=== PATIENT | male | born 1945 | race Caucasian/White ===

== ENCOUNTER 2017-08-22 17:27 | Observation (INO) | payer MEDICARE, SELFPAY ==
[2017-08-22] VITALS (11 sets, daily range): BP systolic 89–126; BP diastolic 49–74; PULSE 58–61; RESP 16–19; TEMP 36.6–36.8; O2SAT 94–100; BMI 30.6; BMI 29.7
--- NOTE | 2017-08-22 17:30 | EKG12_ITS ---
Test Reason : CHEST PAIN Blood Pressure : / mmHG Vent. Rate : 060 BPM Atrial Rate : 060 BPM P-R Int : 148 ms QRS Dur : 104 ms QT Int : 462 ms P-R-T Axes : 075 -48 025 degrees QTc Int : 462 ms Sinus rhythm with Premature atrial complexes Left axis deviation Lateral infarct , age undetermined Inferior infarct , age undetermined Abnormal ECG Confirmed by SHARLENE TRAVIS, JOSEPH ([id number]), restaurant expeditor DANIELLE POMPA ([id number]) on 08/25/2017 1:44:12 PM Referred By: ZUNILDA Confirmed By:JOSEPH SU MD
--- NOTE | 2017-08-22 17:31 | RAD_ITS ---
STUDY: X-RAY CHEST REASON FOR EXAM: Male, 72 years old. Chest pain. TECHNIQUE: Single frontal view of the chest. COMPARISON: May 15, 2016 FINDINGS: There is stable mild hyperexpansion. There is no demonstrated pleural abnormality. There is cardiomegaly with a dual lead cardiac pacer unchanged. Normal mediastinum and luca. Normal visualized pulmonary arteries. Normal visualized aortic arch and descending thoracic aorta. Normal visualized thoracic spine. Normal visualized ribs, clavicles, and shoulders. There is no demonstrated abnormality of the visualized soft tissue structures of the upper abdomen. RAD/Chest 1 View (Portable) IMPRESSION: Stable cardiomegaly with hyperexpansion. No new or acute pathology. Electronically Signed: Mark Tang MD at 18:49 EDT , Service support ,
--- NOTE | 2017-08-22 17:43 | ED.DCSUM_ITS ---
- ER Visit Summary Date of Service: 08/22/17 Chief Complaint: Chest pain History of Present Illness: The patient is a 72 M who developed chest pain last night. He states it was intermittent until today when it was constant. Sharp in the lower part of the sternal area. Nothing makes it better or worse. He has had nausea and tried to vomit but could not. No dyspnea or diaphoresis. He does have a history of multiple heart attacks in the past. Dr. Harris is his junior web designer. He also has a stone in his bile duct and is scheduled for an ERCP. He does not have a gallbladder. He does take Coumadin because he has a pacemaker in place. Physical Examination: Vital signs reviewed. HEENT exam unremarkable. Heart is regular rate and rhythm without murmurs. Lungs are clear to auscultation. He does have lower chest tenderness to palpation abdomen is soft with epigastric tenderness to palpation. extremities reveal no edema. Skin exam normal. Neurologic exam normal. Test Results: EKG is normal sinus rhythm with multiple PACs. Nonspecific ST and T-wave changes noted. Chest x-ray reveals chronic changes. Creatinine 1.41 and troponin normal. His INR is 2.2. Emergency Department Course and Treatment: Patient was given aspirin. He did have an episode of hypotension. He was given a liter of saline. Repeat blood pressure 100/49. He requested Toradol for pain control. He states his pain is much improved but not gone. I feel he should be admitted to the hospital for cycling of his enzymes and cardiac rule out. Patient will be discussed with the hospitalist for admission Treatment Plan: [] Disposition: Admit Impression: Chest pain This note was generated with [employer] dictation software. It may contain incorrect words, spelling, and punctuation that were not noted in review of the chart prior to signing ED Disposition - Plan for ED Patient: Chief Complaint: Chest Pain Referrals: Lilly Starr MD [Primary Care Provider] -
[2017-08-22 17:49] LABS: Absolute Lymphocyte Count 1.63 X10^3/ul (0.83-4.51); Absolute Neutrophil Count 4.8 X10^3/uL (2.0-7.7); Basophil# 0.03 X10^3/uL; Basophil% 0.4 % (0-1); Eosinophil# 0.17 X10^3/uL; Eosinophils% 2.3 % (0-5); Hematocrit 42.6 % (40-54); Hemoglobin 14.3 g/dl (13.0-16.5); Lymphocyte # 1.63 X10^3/ul (4.0); Lymphocyte % 22.2 % (19-41); Mean Corp Hgb Conc 33.6 g/gl (32-36); Mean Corpuscular Volume 89.3 fL (80-94); Mean Platelet Vol. 9.3 fl (6.2-12.0); Monocyte# 0.69 X10^3/uL; Monocyte% 9.4 % (0-10); Neutrophil % 65.6 % (47-70); POSITIVE COUNT NO; POSITIVE DIFFERENTIAL NO; POSITIVE MORPHOLOGY NO; Platelet Count 151 K/mm3 (150-450); RBC Distribution Width CV 14.9 % (11.6-14.6); RBC Distribution Width SD 48.6 fl (35.1-43.9); Red Blood Count 4.77 M/mm3 (4.6-6.2); White Blood Count 7.3 K/mm3 (4.4-11.0)
[2017-08-22 17:57] LABS: International Normalized Ratio 2.2; Prothrombin Time (Protime)PT. 24.7 SECONDS (11.7-14.9)
[2017-08-22 18:06] LABS: AST(SGOT) 26 U/L (15-37); Alanine Aminotransfer ALT/SGPT 31 U/L (16-61); Albumin, Serum 3.5 g/dL (3.2-5.0); Alkaline Phosphatase 87 U/L (45-117); Anion Gap 10 (5-15); BUN 18 mg/dL (7-18); BUN/Creat Ratio 12.8 RATIO (10-20); Bilirubin, Direct 0.19 mg/dL (0.00-0.30); Chloride 103 mmol/L (98-107); Creatinine, Serum 1.41 mg/dL (0.70-1.30); EST Glomerular Filtration Rate 53 mL/min (>60); Est Glom Filt Rate - Afr Amer 64 mL/min (>60); Estimated Creatinine Clearance 48.75 ml/min; Globulin 4.2 g/dL (2.2-4.2); Glucose 135 mg/dL (74-106); Lipase 240 U/L (73-393); Potassium 3.8 mmol/L (3.5-5.1); Protein, Total 7.7 g/dL (6.4-8.2); Sodium Level 139 mmol/L (136-145)
[2017-08-22] MEDS: Ketorolac 30 MG/ML Syringe IV (18:15)
--- NOTE | 2017-08-22 20:11 | HP.PCM_ITS ---
Problem List (1) Chest pain Status: Acute (2) Sustained VT (ventricular tachycardia) Status: Acute (3) Atrial fibrillation Status: Chronic (4) Coronary artery disease Status: Chronic (5) Dyslipidemia Status: Chronic (6) Hypertension Status: Chronic (7) PAF (paroxysmal atrial fibrillation) Status: Chronic History of Present Illness Date of Admission: 08/22/17 Chief Complaint: Chest pain The patient is a 72 year old male w/ h/o PAF, CAD, HTN, and lipidemia admitted for chest pain. He had intermittent epigastric pain in the past. However today, after eating, he had constant severe epigastric pain. Pain does not radiate. Nothing made it better or worse. He was nauseated and tried to vomit but could not. Pain was not associated with any other symptoms. Pain was nonexertional. He was schedule to have ERCP. Past Medical History Past Medical History (Chronic Problems): Chronic Problems PAF (paroxysmal atrial fibrillation) (Chronic) Dyslipidemia (Chronic) Coronary artery disease (Chronic) Atrial fibrillation (Chronic) Smoking addiction (Chronic) Hypertension (Chronic) Allergies esomeprazole magnesium [From Nexium] Adverse Reaction (Verified 01/06/16 18:21) Diarrhea Home Medications: Ambulatory Orders Medication Instructions Recorded Nitroglycerin [Nitrostat] 0.4 mg SUBLINGUAL Q5M PRN 06/11/13 Pantoprazole Sodium [Protonix] 40 mg PO BID 06/11/13 Atorvastatin Calcium [Lipitor] 40 mg PO QHS 05/15/16 Magnesium Oxide [Mag-Ox 400] 400 mg PO SUTH 05/15/16 Sacubitril/Valsartan 49-51 mg 1 tab PO BID 05/15/16 [Entresto 49 mg-51 mg Tablet] Acetaminophen [Tylenol Extra 1,000 mg PO DAILY PRN 08/22/17 Strength] Aspirin [Aspirin, Baby] 81 mg PO QHS 08/22/17 Docusate Sodium [Colace] 200 mg PO QHS 08/22/17 Fluticasone 0.05% [Flonase Nasal 1 spray NASAL DAILY 08/22/17 [place]] Furosemide [Lasix] 40 mg PO BID 08/22/17 Metoprolol Succinate [Toprol Xl] 25 mg PO DAILY 08/22/17 Potassium Chloride [K-Dur] 10 meq PO BID 08/22/17 Warfarin Sodium [Warfarin Sodium] 5 mg PO DAILY 08/22/17 Surgical History: - - AICD pacemaker Psychiatric History: No pertinent psych hx Lives: Spouse/ Significant Other Smoking Status: Former smoker Tobacco Use: Non-smoker Alcohol: None - *Family History Maternal History Items: No pertinent history Review of Systems Constitutional: Denies: Chills, Fever, Weight Change HEENT: Denies: Head Aches, Sinus Congestion, Sinus Drainage Cardiovascular: Reports: Chest Pain. Denies: Palpitations Respiratory: Denies: Cough, Shortness of breath at rest, Sputum production Gastrointestinal: Reports: Nausea. Denies: Abdominal Pain, Vomiting Genitourinary: Denies: Dysuria Musculoskeletal: Denies: Joint Pain, Joint Tenderness Skin: Denies: Rash, Wounds Neurological: Denies: Numbness, Tingling, Focal weakness Psychiatric: Denies: Anxiety, Depression, Homicidal Ideations, Suicidal Ideations Hematologic/ Lymphatic: Denies: Easy Bruising, Easy Bleeding VTE Information - Inpt Only VTE Present on Admission: No VTE Mechan Device Prophylaxis: SCD's VTE Pharm Prophylaxis ordered?: Yes Patient Problems: Active and Suspected Problems Chest pain (Acute) - Physical Exam General: Alert, Oriented x3, Cooperative HEENT: Atraumatic, PERRLA, EOMI, Normocephalic Neck: Supple, No JVD, Negative Carotid Bruits Lungs: Clear to auscultation, Normal air movement Cardiovascular: Regular rate, No murmurs Abdomen: Bowel Sounds Present, Soft, Non Tender Extremities: No edema, Capillary Refill Less than 3 Seconds Skin: No rashes, No breakdown Musculoskeletal: No Tenderness to Palpation of Joints or Extremities Neurological: Cranial nerves II-XII grossly intact Psych/Mental Status: Normal Affect, Appropriate Vital Signs Temp Pulse Resp BP Pulse Ox 98.2 F 60 16 100/49 L 96 08/22/17 17:27 08/22/17 19:09 08/22/17 19:09 08/22/17 19:09 08/22/17 19:09 Oxygen Flow Rate (L/min) 3 Oxygen Delivery Method Room Air Weight: 94 kg Body Mass Index (BMI) 30.6 Laboratory Tests Past 24 Hrs 08/22/17 08/22/17 08/22/17 17:40 17:40 17:40 WBC 7.3 RBC 4.77 Hgb 14.3 Hct 42.6 MCV 89.3 MCH 30.0 MCHC 33.6 RDW 14.9 H RDW Differential 48.6 H Plt Count 151 MPV 9.3 Immature Gran % (Auto) 0.100 Neut % (Auto) 65.6 Lymph % (Auto) 22.2 [place] % (Auto) 9.4 Eos % (Auto) 2.3 Baso % (Auto) 0.4 Absolute Neuts (auto) 4.8 Absolute Lymphs (auto) 1.63 Total Counted Not Reportable PT 24.7 H INR 2.2 Sodium 139 Potassium 3.8 Chloride 103 Carbon Dioxide 26.0 Anion Gap 10 BUN 18 Creatinine 1.41 H Estim Creat Clear Calc 48.75 Est GFR (MDRD) Af Amer 64 Est GFR (MDRD) Non-Af 53 L BUN/Creatinine Ratio 12.8 Glucose 135 H Calcium 9.0 Total Bilirubin 0.80 Direct Bilirubin 0.19 AST 26 ALT 31 Alkaline Phosphatase 87 Troponin I < 0.015 Total Protein 7.7 Albumin 3.5 Globulin 4.2 Lipase 240 Assessment/Plan All Active Problems Chest pain (Acute) AICD discharge (Acute) Sustained VT (ventricular tachycardia) (Acute) Acute renal failure (Resolved) Dehydration (Resolved) Nausea & vomiting (Resolved) 72 year old male w/ h/o PAF, CAD, HTN, and lipidemia admitted for chest pain. 1) Chest pain: Heart score 5 Chest xray is unremarkable. EKG is nondiagnostic. Trop negative. C/w ASA, metoprolol and statin. Serial trops and FLP. Will get ECHO and stress test. 2_ Chronic issues: PAF, CAD, HTN, and lipidemia Resume coumadin. Follow INR. 3) Prophylaxis: SCD / coumadin / PPI
--- NOTE | 2017-08-22 20:52 | NURSING ---
Called ED non cdl driver, Erica at this time to confirm Pt is okay to come to PCU.
--- NOTE | 2017-08-22 21:25 | EKG12_ITS ---
Test Reason : CP ADMISSION Blood Pressure : / mmHG Vent. Rate : 060 BPM Atrial Rate : 060 BPM P-R Int : 196 ms QRS Dur : 108 ms QT Int : 456 ms P-R-T Axes : 076 -44 -22 degrees QTc Int : 456 ms Atrial-paced rhythm Left axis deviation Lateral infarct , age undetermined Inferior infarct , age undetermined Abnormal ECG Confirmed by SHARLENE TRAVIS, JOSEPH ([id number]), editor index DANIELLE POMPA ([id number]) on 08/25/2017 3:04:31 PM Referred By: KENNY Confirmed By:JOSEPH SU MD
[2017-08-22] MEDS: Docusate Sodium 100 MG Capsule 200 MG PO (23:13)
[2017-08-22] MEDS: SACUBITRIL/VALSARTAN 49-51 MG TABLET 1 EACH PO (23:13)
[2017-08-22] MEDS: Pantoprazole Sodium 40 MG Tablet PO (23:13)
[2017-08-22] MEDS: Atorvastatin Calcium 40 MG Tablet PO (23:13)
[2017-08-22] MEDS: Furosemide 40 MG Tablet PO (23:14)
[2017-08-23] VITALS (14 sets, daily range): BP systolic 80–102; BP diastolic 51–64; PULSE 60–64; RESP 16–18; TEMP 36.6–36.8; O2SAT 94–97
[2017-08-23 05:54] LABS: Hemoglobin 12.7 g/dl (13.0-16.5); Mean Corp Hgb Conc 32.6 g/gl (32-36); Mean Corpuscular Hgb 29.6 pg (27.0-32.0); Mean Corpuscular Volume 90.9 fL (80-94); Mean Platelet Vol. 9.9 fl (6.2-12.0); Platelet Count 142 K/mm3 (150-450); RBC Distribution Width CV 15.3 % (11.6-14.6); RBC Distribution Width SD 50.6 fl (35.1-43.9); Red Blood Count 4.29 M/mm3 (4.6-6.2); White Blood Count 6.7 K/mm3 (4.4-11.0)
--- NOTE | 2017-08-23 05:55 | ECHOCS_ITS ---
Reason For Study: Chest Pain Procedure This was a 2D Doppler, Color Flow transthoracic echocardiogram. Per Patient: Last echo done with the [facility] showed an EF of 30%. Exam performed portable in patient room. Left Ventricle Mildly dilated left ventricle. The estimated ejection fraction is 25 %. Severe segmental systolic dysfunction (see wall motion). Transmitral and pulmonary venous doppler flow suggestive of impaired relaxation of left ventricle. Mid-Posterior: Akinetic. Infero-Basal: Hypokinetic. Posterior-Basal: Akinetic. [place] : Akinetic. Mid-anteroseptal : Hypokinetic. Anterio-Basal: Normal. Lateral-Basal: Hypokinetic. Basal inferoseptal: Hypokinetic. Basal anteroseptal: Hypokinetic. Mid-Anterior : Normal. Mid-Inferior: Hypokinetic. Mid-inferoseptal : Mildly hypokinetic. Right Ventricle Normal RV size. Normal systolic function. Atria Normal left atrium. Normal right atrium. Mitral Valve Normal mitral valve. Tricuspid Valve Normal tricuspid valve. Aortic Valve The aortic valve is not well visualized. Pulmonic Valve Normal pulmonic valve. Great Vessels Normal aortic root. The pulmonary artery is normal size. Normal inferior vena cava. Pericardium/Pleural No pericardial effusion. Medication Diluted definity 3ml given slow IV push to enhance endocardial definition. MMode/2D Measurements & Calculations LVIDd: 5.8 cm IVSd: 1.2 cm Ao root diam: 3.9 cm LVIDs: 5.0 cm LVPWd: 1.0 cm LA dimension: 4.4 cm FS: 13.7 % LAV(MOD-sp4): 35.6 ml LA A4 area: 16.2 cm2 RA A4 area: 9.0 cm2 Time Measurements MV dec time: 0.35 sec Doppler Measurements & Calculations MV E max angela: 35.9 cm/sec MV V2 max: 92.5 cm/sec MV P1/2t max angela: 55.9 cm/sec MV A max angela: 80.4 cm/sec MV max P.4 mmHg MV P1/2t: 98.7 msec MV E/A: 0.45 MV V2 mean: 45.4 cm/sec MV dec slope: 165.8 cm/sec2 MV mean P.98 mmHg MVA(P1/2t): 2.2 cm2 MV V2 VTI: 28.1 cm Ao V2 max: 141.6 cm/sec LV V1 max: 118.5 cm/sec PA V2 max: 80.9 cm/sec Ao max P.0 mmHg LV V1 max P.6 mmHg Ao V2 mean: 90.6 cm/sec LV V1 mean P.7 mmHg Ao mean P.8 mmHg LV V1 mean: 75.5 cm/sec Ao V2 VTI: 27.7 cm LV V1 VTI: 26.2 cm Interpretation Summary Mildly dilated left ventricle. The estimated ejection fraction is 25 %. Severe segmental systolic dysfunction (see wall motion). Transmitral and pulmonary venous doppler flow suggestive of impaired relaxation of left ventricle Contrast injection was performed. Ordering Physician: Nirav Winslow Referring Physician: Lilly Starr Performed By: Surya Porras RCS
[2017-08-23 05:57] LABS: Scan Indicated on CBC? Y/N NO
[2017-08-23 06:06] LABS: International Normalized Ratio 2.1; Prothrombin Time (Protime)PT. 23.6 SECONDS (11.7-14.9)
[2017-08-23 06:33] LABS: ALB/GLOB Ratio 0.8 RATIO (0.9-2.4); AST(SGOT) 20 U/L (15-37); Alanine Aminotransfer ALT/SGPT 25 U/L (16-61); Albumin, Serum 2.9 g/dL (3.2-5.0); Alkaline Phosphatase 72 U/L (45-117); Anion Gap 8 (5-15); BUN 21 mg/dL (7-18); BUN/Creat Ratio 15.1 RATIO (10-20); Calcium,Total 8.4 mg/dL (8.5-10.1); Chloride 106 mmol/L (98-107); Cholesterol 117 mg/dL (200); Creatinine, Serum 1.39 mg/dL (0.70-1.30); EST Glomerular Filtration Rate 54 mL/min (>60); Est Glom Filt Rate - Afr Amer 65 mL/min (>60); Estimated Creatinine Clearance 47.84 ml/min; Globulin 3.8 g/dL (2.2-4.2); Glucose 102 mg/dL (74-106); High Density Lipoprotein 37 mg/dL; Potassium 4.2 mmol/L (3.5-5.1); Protein, Total 6.7 g/dL (6.4-8.2); Sodium Level 141 mmol/L (136-145); Thyroid Stim Hormone (TSH) 1.57 uIU/mL (0.358-3.74); Triglycerides 228 mg/dL; Very Low Density Lipoprotein 46 mg/dL (5-40)
[2017-08-23 08:03] LABS: BNP,B-Type NATRIURETIC PEPTIDE 73.2 pg/mL (0-100)
[2017-08-23] MEDS: Magnesium Oxide 400 MG Tablet PO (09:27)
[2017-08-23] MEDS: Metoprolol(XL)Succ 25 MG Tablet PO (09:27)
[2017-08-23] MEDS: Pantoprazole Sodium 40 MG Tablet PO ×2 (09:28→22:14)
[2017-08-23] MEDS: Furosemide 40 MG Tablet PO ×2 (09:28→17:09)
[2017-08-23] MEDS: SACUBITRIL/VALSARTAN 49-51 MG TABLET 1 EACH PO ×2 (09:28→22:14)
--- NOTE | 2017-08-23 09:57 | PN_ITS ---
Patient Problems: Active and Suspected Problems Chest pain (Acute) Subjective: Patient was seen and examined. Complains of severe substernal chest pain, that feels like his previous heart attack, gallstones, pancreatitis all in 1. Denies belching or water brash in his mouth. Says chest pain feels pressure- like, associated with nausea and diaphoresis but no dizziness or palpitations. Vitals/I&O's: Vital Signs Temp Pulse Resp BP Pulse Ox 98.3 F 60 16 91/51 L 97 08/23/17 09:08 08/23/17 09:27 08/23/17 09:08 08/23/17 09:08 08/23/17 09:08 Oxygen Flow Rate (L/min) 3 Oxygen Delivery Method Nasal Cannula Weight: 90.7 kg Body Mass Index (BMI) 29.7 Intake and Output for Last 24 Hours 08/21/17 08/22/17 08/23/17 23:59 23:59 23:59 Intake Total 240 / 240 240 / 240 Output Total 100 / 100 Balance 140 / 140 240 / 240 General: Alert, Oriented x3, Cooperative, No apparent distress HEENT: Atraumatic, PERRLA, EOMI, Normocephalic Oral: Moist Mucosa Neck: Supple, No JVD, Negative Carotid Bruits Lungs: Clear to auscultation, Normal air movement Cardiovascular: Regular rate, Regular Rhythm, Normal S1, Normal S2, No murmurs Abdomen: Bowel Sounds Present, Soft, Non Tender, Non-Distended, No Hepato- splenomegaly Extremities: No edema Skin: No rashes, No breakdown Musculoskeletal: No Tenderness to Palpation of Joints or Extremities Lymphatic: No Cervical, Supraclavicular, or Inguinal Adenopathy Neurological: Cranial nerves II-XII grossly intact, Neuro grossly intact Psych/Mental Status: Normal Affect, Appropriate Laboratory Results 08/22/17 21:38: Troponin I < 0.015 08/23/17 00:33: Troponin I < 0.015 08/23/17 05:05: WBC 6.7, RBC 4.29 L, Hgb 12.7 L, Hct 39.0 L, MCV 90.9, MCH 29.6 , MCHC 32.6, RDW 15.3 H, RDW Differential 50.6 H, Plt Count 142 L, MPV 9.9 08/23/17 05:05: Sodium 141, Potassium 4.2, Chloride 106, Carbon Dioxide 27.0, Anion Gap 8, BUN 21 H, Creatinine 1.39 H, Estim Creat Clear Calc 47.84, Est GFR (MDRD) Af Amer 65, Est GFR (MDRD) Non-Af 54 L, BUN/Creatinine Ratio 15.1, Glucose 102, Calcium 8.4 L, Total Bilirubin 0.80, AST 20, ALT 25, Alkaline Phosphatase 72, Total Protein 6.7, Albumin 2.9 L, Globulin 3.8, Albumin/ Globulin Ratio 0.8 L, Triglycerides 228 H, Cholesterol 117, LDL Cholesterol 34, VLDL Cholesterol 46 H, HDL Cholesterol 37 L, TSH 1.57 08/23/17 05:05: B-Natriuretic Peptide 73.2 08/23/17 05:05: PT 23.6 H, INR 2.1 Current Medications Acetaminophen (Tylenol) 1,000 mg PO DAILY PRN PRN PRN Reason: PAIN Aspirin (Aspirin, Baby) 81 mg PO DAILY@2200 [facility] Atorvastatin Calcium (Lipitor) 40 mg PO QHS [facility] Last Admin: 08/22/17 23:13 Dose: 40 mg Docusate Sodium (Colace) 200 mg PO QHS [facility] Last Admin: 08/22/17 23:13 Dose: 200 mg Fluticasone Propionate (Flonase Nasal [place]) 1 spray NASAL DAILY [facility] Last Admin: 08/23/17 09:25 Dose: Not Given Furosemide (Lasix) 40 mg PO BIDLX [facility] Last Admin: 08/23/17 09:28 Dose: 40 mg Magnesium Oxide (Mag-Ox 400) 400 mg PO SuTh@1000 [facility] Last Admin: 08/23/17 09:27 Dose: 400 mg Metoprolol Succinate (Toprol Xl (Beta [place])) 25 mg PO DAILY [facility] Last Admin: 08/23/17 09:27 Dose: 25 mg Nitroglycerin (Nitrostat) 0.4 mg SUBLINGUAL Q5M PRN PRN Reason: Chest Pain Pantoprazole Sodium (Protonix) 40 mg PO BID [facility] Last Admin: 08/23/17 09:28 Dose: 40 mg Potassium Chloride (K-Dur) 10 meq PO BIDCM [facility] Last Admin: 08/23/17 09:28 Dose: 10 meq Sodium Chloride () 5 - 30 ml IV UD PRN PRN Reason: SALINE FLUSH Warfarin Sodium (Coumadin (Pbkc)) 5 mg PO DAILY@1700 [facility] Last Admin: 08/22/17 23:14 Dose: 5 mg Medical Necessity - Tobacco Use Smoking Status: Former smoker Tobacco Use: Non-smoker Assessment/Plan All Active Problems Chest pain (Acute) AICD discharge (Acute) Sustained VT (ventricular tachycardia) (Acute) Acute renal failure (Resolved) Dehydration (Resolved) Nausea & vomiting (Resolved) 72-year-old male with risk factors for CAD, s/p remote [place], history of gallstones status post cholecystectomy, history of biliary pancreatitis yet to have ERCP, closed with Dr. Harris comes in with pressure-like chest pain ongoing for hours 1. Chest pain, atypical, the patient with risk factors, likely related to GERD as he has started from the epigastric region, on IV PPI EKG is unremarkable, troponins are negative, patient is being planned for stress test in a.m. 2. CAD status post [place], status post stent, on aspirin, statins, 3. Chronic atrial fibrillation, rate controlled, on Coumadin 4. Hyperlipidemia, on statin 5. Hypertension, controlled, blood pressure is running slightly low, will start gentle IV fluids 6. History of SVTs, bradycardia, status post pacemaker 7. DVT prophylaxis -on Coumadin, INR is therapeutic Code Visit Inpatient E&M: 53736 Subs Hosp L2
--- NOTE | 2017-08-23 10:50 | EKG12_ITS ---
Test Reason : CP Blood Pressure : / mmHG Vent. Rate : 060 BPM Atrial Rate : 060 BPM P-R Int : 196 ms QRS Dur : 102 ms QT Int : 458 ms P-R-T Axes : 060 -50 007 degrees QTc Int : 458 ms Atrial-paced rhythm Left axis deviation Inferior-posterior infarct , age undetermined Anterolateral infarct , age undetermined Abnormal ECG Confirmed by SHARLENE TRAVIS, JOSEPH ([id number]), food editor DANIELLE POMPA ([id number]) on 08/25/2017 3:03:58 PM Referred By: EDWIGE Confirmed By:JOSEPH SU MD
[2017-08-23] MEDS: 0.9% NaCl Peripheral Flush Adult/Peds IV ×2 (12:43→20:06)
[2017-08-23] MEDS: 0.9% Normal Saline 1,000 ML 75 ML IV (13:29)
[2017-08-23] MEDS: Mag Hydrox/Al Hydrox/Simeth 30 ML UDC PO (13:29)
[2017-08-23] MEDS: Psyllium 1 PACKET PO (15:36)
[2017-08-23] MEDS: Atorvastatin Calcium 40 MG Tablet PO (22:14)
[2017-08-23] MEDS: Docusate Sodium 100 MG Capsule 200 MG PO (22:14)
[2017-08-23] MEDS: Aspirin 81 MG TAB.CHEW PO (22:14)
[2017-08-24] VITALS (9 sets, daily range): BP systolic 88–118; BP diastolic 53–74; PULSE 60–65; RESP 16; TEMP 36.6–36.8; O2SAT 94–97
[2017-08-24] MEDS: 0.9% Normal Saline 1,000 ML 75 ML IV (00:37)
--- NOTE | 2017-08-24 05:38 | NURSING ---
RN ATTEMPTED TO CALL STRESS TEST TO UPDATE ABOUT BP.
[2017-08-24 05:57] LABS: Absolute Lymphocyte Count 1.41 X10^3/ul (0.83-4.51); Absolute Neutrophil Count 3.5 X10^3/uL (2.0-7.7); Basophil# 0.05 X10^3/uL; Basophil% 0.8 % (0-1); Eosinophil# 0.26 X10^3/uL; Eosinophils% 4.4 % (0-5); Hematocrit 38.6 % (40-54); Hemoglobin 12.4 g/dl (13.0-16.5); Lymphocyte # 1.41 X10^3/ul (4.0); Lymphocyte % 23.8 % (19-41); Mean Corp Hgb Conc 32.1 g/gl (32-36); Mean Corpuscular Hgb 29.4 pg (27.0-32.0); Mean Corpuscular Volume 91.5 fL (80-94); Mean Platelet Vol. 9.2 fl (6.2-12.0); Monocyte# 0.67 X10^3/uL; Monocyte% 11.3 % (0-10); Neutrophil # 3.52 X10^3/uL (2.7-7.7); Neutrophil % 59.5 % (47-70); Platelet Count 142 K/mm3 (150-450); RBC Distribution Width CV 15.3 % (11.6-14.6); RBC Distribution Width SD 51.6 fl (35.1-43.9); Red Blood Count 4.22 M/mm3 (4.6-6.2); White Blood Count 5.9 K/mm3 (4.4-11.0)
[2017-08-24 05:58] LABS: POSITIVE COUNT NO; POSITIVE DIFFERENTIAL NO; POSITIVE MORPHOLOGY NO
--- NOTE | 2017-08-24 06:20 | NURSING ---
SPOKE TO RN IN STRESS TEST, UPDATED ABOUT PATIENT'S BP BEING CHRONICALLY LOW. DID NOT GIVE ANY BP PILLS THIS MORNING.
[2017-08-24 06:24] LABS: Anion Gap 7 (5-15); BUN 20 mg/dL (7-18); Calcium,Total 8.7 mg/dL (8.5-10.1); Chloride 106 mmol/L (98-107); Creatinine, Serum 1.33 mg/dL (0.70-1.30); EST Glomerular Filtration Rate 56 mL/min (>60); Est Glom Filt Rate - Afr Amer 68 mL/min (>60); Glucose 102 mg/dL (74-106); Potassium 4.2 mmol/L (3.5-5.1); Sodium Level 145 mmol/L (136-145)
[2017-08-24 06:46] LABS: International Normalized Ratio 2.4; Prothrombin Time (Protime)PT. 25.9 SECONDS (11.7-14.9)
[2017-08-24] MEDS: Spironolactone 25 MG Tablet PO (09:16)
[2017-08-24] MEDS: Pantoprazole Sodium 40 MG Tablet PO ×2 (09:17→09:19)
[2017-08-24] MEDS: Aspirin 81 MG TAB.CHEW PO (09:17)
[2017-08-24] MEDS: SACUBITRIL/VALSARTAN 49-51 MG TABLET 1 EACH PO (09:17)
[2017-08-24] MEDS: Furosemide 40 MG Tablet PO (09:18)
[2017-08-24] MEDS: Psyllium 1 PACKET PO (09:22)
--- NOTE | 2017-08-24 09:23 | STRESSREP ---
Stress Test Report Pharmacologic myocardial perfusion stress test. 72-year-old man with a history of chest pain. Stress protocol: Resting EKG demonstrates normal sinus rhythm with a rate of 60 bpm previous inferior infarct is noted resting blood pressure is 118/80 mmHg. 0.4 mg regadenoson was infused per usual protocol followed byIntravenous saline flush injection continuous EKG monitoring was performed. The maximum heart rate attained was 72 bpm which was 48% of the maximum predicted heart rate. The maximum workload was 1 metabolic equivalent. At rest there were no ST or T-wave changes noted to suggest abnormal flow reserve at peak infusion no ST or T-wave changes were noted suggest abnormal flow reserve. Myocardial perfusion protocol. 14.3 mCi of technetium 99m sestamibi was injected at rest. 0.4 mg regadenoson was infused per usual protocol peak infusion 44.6 mCi of technetium 99m sestamibi was injected stress images were obtained stress and rest images were reconstructed and compared in the short axis vertical long and horizontal long axis. Gated images were also obtained. Perfusion SPECT analysis: Review of the images demonstrated dilated cardiac silhouette size. The mid anterior wall mid septum are noted to be well perfused. The inferior wall has a large perfusion defect. In addition, the lateral wall, lateral apical wall and apex of a perfusion defect which is present on the stress and resting images to a similar extent suggestive of a previous extensive lateral, apical lateral and apical infarct. An inferior wall perfusion defect is also present. No ischemia is noted. Gated SPECT analysis: The gated ejection fraction is 25%. Conclusion: Ischemic cardiomyopathy. Extensive defect noted involving the inferior wall, mid lateral wall, apex, and apical lateral wall. No ischemia present.
--- NOTE | 2017-08-24 09:41 | STRESSREP_ITS ---
Stress Test Report Pharmacologic myocardial perfusion stress test. 72-year-old man with a history of chest pain. Stress protocol: Resting EKG demonstrates normal sinus rhythm with a rate of 60 bpm previous inferior infarct is noted resting blood pressure is 118/80 mmHg. 0.4 mg regadenoson was infused per usual protocol followed byIntravenous saline flush injection continuous EKG monitoring was performed. The maximum heart rate attained was 72 bpm which was 48% of the maximum predicted heart rate. The maximum workload was 1 metabolic equivalent. At rest there were no ST or T- wave changes noted to suggest abnormal flow reserve at peak infusion no ST or T- wave changes were noted suggest abnormal flow reserve. Myocardial perfusion protocol. 14.3 mCi of technetium 99m sestamibi was injected at rest. 0.4 mg regadenoson was infused per usual protocol peak infusion 44.6 mCi of technetium 99m sestamibi was injected stress images were obtained stress and rest images were reconstructed and compared in the short axis vertical long and horizontal long axis. Gated images were also obtained. Perfusion SPECT analysis: Review of the images demonstrated dilated cardiac silhouette size. The mid anterior wall mid septum are noted to be well perfused. The inferior wall has a large perfusion defect. In addition, the lateral wall, lateral apical wall and apex of a perfusion defect which is present on the stress and resting images to a similar extent suggestive of a previous extensive lateral, apical lateral and apical infarct. An inferior wall perfusion defect is also present. No ischemia is noted. Gated SPECT analysis: The gated ejection fraction is 25%. Conclusion: Ischemic cardiomyopathy. Extensive defect noted involving the inferior wall, mid lateral wall, apex, and apical lateral wall. No ischemia present.
[2017-08-24] MEDS: Metoprolol(XL)Succ 25 MG Tablet PO (11:32)
[2017-08-24 11:55] LABS: Erythrocyte Sedimentation Rate 9 mm/hr (0-20)
[2017-08-24 11:56] LABS: CRP < 2.90 mg/L (0.0-3.0)
--- NOTE | 2017-08-24 13:27 | PCM.DC ---
- Discharge Diagnoses Current Active Problems: Current Active and Chronic Problems Chest pain (Acute) - stress test negative. Suspect due to reflux. You will use the following diet at home:: Other - resume previous diet Your food should be the consistency of: Regular Your liquids should be the consistency of: Regular/Thin Discharge Activity: Return to Normal Activity Call your doctor if you observe: Fever of 101 or Higher, Shortness of breath, Dizziness, Fainting spells, Swelling in the ankles, Calf discomfort Additional Instructions: The stress test was negative. The ESR and the CPR were normal so I doubt you have pericarditis. It may be just reflux OR it could be due to the gallstone. Follow up with your PCP and vp treasurer. Allergies/Adverse Reactions: Allergies esomeprazole magnesium [From Nexium] Adverse Reaction (Verified 01/06/16 18:21) Diarrhea Medications to take at Discharge Nitroglycerin [Nitrostat] 0.4 mg SUBLINGUAL Q5M PRN 06/11/13 Pantoprazole Sodium [Protonix] 40 mg PO BID 06/11/13 Atorvastatin Calcium [Lipitor] 40 mg PO QHS 05/15/16 Magnesium Oxide [Mag-Ox 400] 400 mg PO SUTH 05/15/16 Sacubitril/Valsartan 49-51 mg [Entresto 49 mg-51 mg Tablet] 1 tab PO BID 05/15/16 Acetaminophen [Tylenol] 1,000 mg PO DAILY PRN 08/22/17 Aspirin [Aspirin, Baby] 81 mg PO QHS 08/22/17 Docusate Sodium [Colace] 200 mg PO QHS 08/22/17 Fluticasone 0.05% [Flonase Nasal [place]] 1 spray NASAL DAILY 08/22/17 Furosemide [Lasix] 40 mg PO BID 08/22/17 Metoprolol Succinate [Toprol Xl] 25 mg PO DAILY 08/22/17 Potassium Chloride [K-Dur] 10 meq PO BID 08/22/17 Warfarin Sodium 5 mg PO DAILY 08/22/17 Metamucil PO DAILY 08/23/17 Spironolactone 25 mg PO BID 08/23/17 Primary Care Physician: Lilly Starr MD [Primary Care Provider] - Please follow up with your Primary Care Physician in: 3-5 days Test Results: Test results from this visit will be discussed in further detail at your follow-up appointment, if applicable. Proposed Discharge Date: 08/24/17
--- NOTE | 2017-08-24 13:37 | DCINST_ITS ---
- Discharge Diagnoses Current Active Problems: Current Active and Chronic Problems Chest pain (Acute) - stress test negative. Suspect due to reflux. You will use the following diet at home:: Other - resume previous diet Your food should be the consistency of: Regular Your liquids should be the consistency of: Regular/Thin Discharge Activity: Return to Normal Activity Call your doctor if you observe: Fever of 101 or Higher, Shortness of breath, Dizziness, Fainting spells, Swelling in the ankles, Calf discomfort Additional Instructions: The stress test was negative. The ESR and the CPR were normal so I doubt you have pericarditis. It may be just reflux OR it could be due to the gallstone. Follow up with your PCP and provider service representative. Allergies/Adverse Reactions: Allergies esomeprazole magnesium [From Nexium] Adverse Reaction (Verified 01/06/16 18:21) Diarrhea Medications to take at Discharge Nitroglycerin [Nitrostat] 0.4 mg SUBLINGUAL Q5M PRN 06/11/13 Pantoprazole Sodium [Protonix] 40 mg PO BID 06/11/13 Atorvastatin Calcium [Lipitor] 40 mg PO QHS 05/15/16 Magnesium Oxide [Mag-Ox 400] 400 mg PO SUTH 05/15/16 Sacubitril/Valsartan 49-51 mg [Entresto 49 mg-51 mg Tablet] 1 tab PO BID Acetaminophen [Tylenol] 1,000 mg PO DAILY PRN 08/22/17 Aspirin [Aspirin, Baby] 81 mg PO QHS 08/22/17 Docusate Sodium [Colace] 200 mg PO QHS 08/22/17 Fluticasone 0.05% [Flonase Nasal [place]] 1 spray NASAL DAILY 08/22/17 Furosemide [Lasix] 40 mg PO BID 08/22/17 Metoprolol Succinate [Toprol Xl] 25 mg PO DAILY 08/22/17 Potassium Chloride [K-Dur] 10 meq PO BID 08/22/17 Warfarin Sodium 5 mg PO DAILY 08/22/17 Metamucil PO DAILY 08/23/17 Spironolactone 25 mg PO BID 08/23/17 Primary Care Physician: Lilly Starr MD [Primary Care Provider] - Please follow up with your Primary Care Physician in: 3-5 days Test Results: Test results from this visit will be discussed in further detail at your follow- up appointment, if applicable. Proposed Discharge Date: 08/24/17
--- NOTE | 2017-08-24 13:50 | PCM.DC.SUM ---
Discharge Date and Diagnosis Date of Admission: 08/22/17 Date of Discharge: 08/24/17 - Primary Discharge Diagnosis Active and Suspected Problems Chest pain (Acute) - non-cardiac Presumed to be due to GERD or gallstone. - Secondary Discharge Diagnosis Chronic Problems PAF (paroxysmal atrial fibrillation) (Chronic) Dyslipidemia (Chronic) Coronary artery disease (Chronic) Sustained VT (ventricular tachycardia) (Chronic) Atrial fibrillation (Chronic) Hypertension (Chronic) Severe cardiomyopathy with 25% EF. Hospital Course and Treatment Imaging Results: 08/24/17 05:55 Nuclear Stress Test - Chemical [NM] Routine Clinical Impression(s) from Imaging Studies Chest X-Ray 08/22/17 17:31 IMPRESSION: Stable cardiomegaly with hyperexpansion. No new or acute pathology. Electronically Signed: Mark Tang MD at 18:49 EDT , Service support , Laboratory Tests 08/22/17 08/22/17 08/22/17 17:40 17:40 17:40 WBC 7.3 RBC 4.77 Hgb 14.3 Hct 42.6 MCV 89.3 MCH 30.0 MCHC 33.6 RDW 14.9 H RDW Differential 48.6 H Plt Count 151 MPV 9.3 Immature Gran % (Auto) 0.100 Neut % (Auto) 65.6 Lymph % (Auto) 22.2 [place] % (Auto) 9.4 Eos % (Auto) 2.3 Baso % (Auto) 0.4 Absolute Neuts (auto) 4.8 Absolute Lymphs (auto) 1.63 Total Counted Not Reportable ESR PT 24.7 H INR 2.2 Sodium 139 Potassium 3.8 Chloride 103 Carbon Dioxide 26.0 Anion Gap 10 BUN 18 Creatinine 1.41 H Estim Creat Clear Calc 48.75 Est GFR (MDRD) Af Amer 64 Est GFR (MDRD) Non-Af 53 L BUN/Creatinine Ratio 12.8 Glucose 135 H Calcium 9.0 Total Bilirubin 0.80 Direct Bilirubin 0.19 AST 26 ALT 31 Alkaline Phosphatase 87 Troponin I < 0.015 C-React Prot Ext Range B-Natriuretic Peptide Total Protein 7.7 Albumin 3.5 Globulin 4.2 Albumin/Globulin Ratio Triglycerides Cholesterol LDL Cholesterol VLDL Cholesterol HDL Cholesterol Lipase 240 TSH 0708/23/17 08/23/17 21:38 00:33 05:05 WBC 6.7 RBC 4.29 L Hgb 12.7 L Hct 39.0 L MCV 90.9 MCH 29.6 MCHC 32.6 RDW 15.3 H RDW Differential 50.6 H Plt Count 142 L MPV 9.9 Immature Gran % (Auto) Neut % (Auto) Lymph % (Auto) [place] % (Auto) Eos % (Auto) Baso % (Auto) Absolute Neuts (auto) Absolute Lymphs (auto) Total Counted ESR PT INR Sodium Potassium Chloride Carbon Dioxide Anion Gap BUN Creatinine Estim Creat Clear Calc Est GFR (MDRD) Af Amer Est GFR (MDRD) Non-Af BUN/Creatinine Ratio Glucose Calcium Total Bilirubin Direct Bilirubin AST ALT Alkaline Phosphatase Troponin I < 0.015 < 0.015 C-React Prot Ext Range B-Natriuretic Peptide Total Protein Albumin Globulin Albumin/Globulin Ratio Triglycerides Cholesterol LDL Cholesterol VLDL Cholesterol HDL Cholesterol Lipase TSH 08/23/17 08/23/17 08/23/17 05:05 05:05 05:05 WBC RBC Hgb Hct MCV MCH MCHC RDW RDW Differential Plt Count MPV Immature Gran % (Auto) Neut % (Auto) Lymph % (Auto) [place] % (Auto) Eos % (Auto) Baso % (Auto) Absolute Neuts (auto) Absolute Lymphs (auto) Total Counted ESR PT 23.6 H INR 2.1 Sodium 141 Potassium 4.2 Chloride 106 Carbon Dioxide 27.0 Anion Gap 8 BUN 21 H Creatinine 1.39 H Estim Creat Clear Calc 47.84 Est GFR (MDRD) Af Amer 65 Est GFR (MDRD) Non-Af 54 L BUN/Creatinine Ratio 15.1 Glucose 102 Calcium 8.4 L Total Bilirubin 0.80 Direct Bilirubin AST 20 ALT 25 Alkaline Phosphatase 72 Troponin I C-React Prot Ext Range B-Natriuretic Peptide 73.2 Total Protein 6.7 Albumin 2.9 L Globulin 3.8 Albumin/Globulin Ratio 0.8 L Triglycerides 228 H Cholesterol 117 LDL Cholesterol 34 VLDL Cholesterol 46 H HDL Cholesterol 37 L Lipase TSH 1.57 08/24/17 08/24/17 08/24/17 05:20 05:20 05:20 WBC 5.9 RBC 4.22 L Hgb 12.4 L Hct 38.6 L MCV 91.5 MCH 29.4 MCHC 32.1 RDW 15.3 H RDW Differential 51.6 H Plt Count 142 L MPV 9.2 Immature Gran % (Auto) 0.200 Neut % (Auto) 59.5 Lymph % (Auto) 23.8 [place] % (Auto) 11.3 H Eos % (Auto) 4.4 Baso % (Auto) 0.8 Absolute Neuts (auto) 3.5 Absolute Lymphs (auto) 1.41 Total Counted Not Reportable ESR PT 25.9 H INR 2.4 Sodium 145 Potassium 4.2 Chloride 106 Carbon Dioxide 32.0 Anion Gap 7 BUN 20 H Creatinine 1.33 H Estim Creat Clear Calc 50.00 Est GFR (MDRD) Af Amer 68 Est GFR (MDRD) Non-Af 56 L BUN/Creatinine Ratio 15.0 Glucose 102 Calcium 8.7 Total Bilirubin Direct Bilirubin AST ALT Alkaline Phosphatase Troponin I C-React Prot Ext Range B-Natriuretic Peptide Total Protein Albumin Globulin Albumin/Globulin Ratio Triglycerides Cholesterol LDL Cholesterol VLDL Cholesterol HDL Cholesterol Lipase TSH 08/24/17 08/24/17 05:20 05:20 WBC RBC Hgb Hct MCV MCH MCHC RDW RDW Differential Plt Count MPV Immature Gran % (Auto) Neut % (Auto) Lymph % (Auto) [place] % (Auto) Eos % (Auto) Baso % (Auto) Absolute Neuts (auto) Absolute Lymphs (auto) Total Counted ESR 9 PT INR Sodium Potassium Chloride Carbon Dioxide Anion Gap BUN Creatinine Estim Creat Clear Calc Est GFR (MDRD) Af Amer Est GFR (MDRD) Non-Af BUN/Creatinine Ratio Glucose Calcium Total Bilirubin Direct Bilirubin AST ALT Alkaline Phosphatase Troponin I C-React Prot Ext Range < 2.90 B-Natriuretic Peptide Total Protein Albumin Globulin Albumin/Globulin Ratio Triglycerides Cholesterol LDL Cholesterol VLDL Cholesterol HDL Cholesterol Lipase TSH none Operations: None Procedures: Stress test - Gated nuclear ejection fraction is 25%. There was extensive defect noted involving the inferior wall, mid lateral wall, apex and apical lateral wall. No ischemia present. Summary of Care Provided: The patient is a 72 year old M with a PMH of HTN, severe ischemic CM with a 25% EF, CAD, paroxysmal atrial fibrillation, hyperlipidemia, coronary artery disease and hypertension who presented to the emergency department at [facility] on 08/22/2017 complaining of severe epigastric pain that started after eating. The pain did not radiate and it was associated with nausea. He related that he was scheduled for an ERCP in the future. Chest x-ray showed stable cardiomegaly with hyperexpansion consistent with COPD. He is a former smoker. Troponin was less than 0.015. EKG showed sinus rhythm with PACs, left axis deviation, inferior and lateral infarcts, age undetermined. He was admitted to a monitored bed on PCU and serial cardiac enzymes were negative. A pharmacologic nuclear exercise test was performed on 08/24/2017 and showed an extensive defect noted involving the inferior wall, mid lateral wall, apex and apical lateral wall. There was no ischemia present. The gated nuclear ejection fraction was 25%. Telemetry showed no significant ectopy or ventricular dysrhythmia. He was discharged home and instructed to follow-up with his primary care physician and the pbx operator performing the ERCP. He will continue to adhere to a low-fat diet. Discharge Activity: Return to Normal Activity Call your doctor if you observe: Fever of 101 or Higher, Shortness of breath, Dizziness, Fainting spells, Swelling in the ankles, Calf discomfort Home Medications: Medications to take at Discharge Nitroglycerin [Nitrostat] 0.4 mg SUBLINGUAL Q5M PRN 06/11/13 Pantoprazole Sodium [Protonix] 40 mg PO BID 06/11/13 Atorvastatin Calcium [Lipitor] 40 mg PO QHS 05/15/16 Magnesium Oxide [Mag-Ox 400] 400 mg PO SUTH 05/15/16 Sacubitril/Valsartan 49-51 mg [Entresto 49 mg-51 mg Tablet] 1 tab PO BID 05/15/16 Acetaminophen [Tylenol] 1,000 mg PO DAILY PRN 08/22/17 Aspirin [Aspirin, Baby] 81 mg PO QHS 08/22/17 Docusate Sodium [Colace] 200 mg PO QHS 08/22/17 Fluticasone 0.05% [Flonase Nasal [place]] 1 spray NASAL DAILY 08/22/17 Furosemide [Lasix] 40 mg PO BID 08/22/17 Metoprolol Succinate [Toprol Xl] 25 mg PO DAILY 08/22/17 Potassium Chloride [K-Dur] 10 meq PO BID 08/22/17 Warfarin Sodium 5 mg PO DAILY 08/22/17 Metamucil PO DAILY 08/23/17 Spironolactone 25 mg PO BID 08/23/17 Primary Care Physician: Lilly Starr MD [Primary Care Provider] - Please follow up with your Primary Care Physician in: 3-5 days Disposition: Home Minutes spent on discharge:: 30 Patient Condition:: Good Medical Necessity - Tobacco Use Smoking Status: Former smoker Tobacco Use: Non-smoker Meaningful Use Info Meaningful Use Diagnoses (Choose all that apply): None applicable Code Visit OBSV E&M: 94448 Observation care discharge
--- NOTE | 2017-08-24 13:53 | DS.PCM_ITS ---
Discharge Date and Diagnosis Date of Admission: 08/22/17 Date of Discharge: 08/24/17 - Primary Discharge Diagnosis Active and Suspected Problems Chest pain (Acute) - non-cardiac Presumed to be due to GERD or gallstone. - Secondary Discharge Diagnosis Chronic Problems PAF (paroxysmal atrial fibrillation) (Chronic) Dyslipidemia (Chronic) Coronary artery disease (Chronic) Sustained VT (ventricular tachycardia) (Chronic) Atrial fibrillation (Chronic) Hypertension (Chronic) Severe cardiomyopathy with 25% EF. Hospital Course and Treatment Imaging Results: 08/24/17 05:55 Nuclear Stress Test - Chemical [NM] Routine Clinical Impression(s) from Imaging Studies Chest X-Ray 08/22/17 17:31 IMPRESSION: Stable cardiomegaly with hyperexpansion. No new or acute pathology. Electronically Signed: Mark Tang MD at 18:49 EDT , Service support , Laboratory Tests 08/22/17 08/22/17 08/22/17 17:40 17:40 17:40 WBC 7.3 RBC 4.77 Hgb 14.3 Hct 42.6 MCV 89.3 MCH 30.0 MCHC 33.6 RDW 14.9 H RDW Differential 48.6 H Plt Count 151 MPV 9.3 Immature Gran % (Auto) 0.100 Neut % (Auto) 65.6 Lymph % (Auto) 22.2 [place] % (Auto) 9.4 Eos % (Auto) 2.3 Baso % (Auto) 0.4 Absolute Neuts (auto) 4.8 Absolute Lymphs (auto) 1.63 Total Counted Not Reportable ESR PT 24.7 H INR 2.2 Sodium 139 Potassium 3.8 Chloride 103 Carbon Dioxide 26.0 Anion Gap 10 BUN 18 Creatinine 1.41 H Estim Creat Clear Calc 48.75 Est GFR (MDRD) Af Amer 64 Est GFR (MDRD) Non-Af 53 L BUN/Creatinine Ratio 12.8 Glucose 135 H Calcium 9.0 Total Bilirubin 0.80 Direct Bilirubin 0.19 AST 26 ALT 31 Alkaline Phosphatase 87 Troponin I < 0.015 C-React Prot Ext Range B-Natriuretic Peptide Total Protein 7.7 Albumin 3.5 Globulin 4.2 Albumin/Globulin Ratio Triglycerides Cholesterol LDL Cholesterol VLDL Cholesterol HDL Cholesterol Lipase 240 TSH 0708/23/17 08/23/17 21:38 00:33 05:05 WBC 6.7 RBC 4.29 L Hgb 12.7 L Hct 39.0 L MCV 90.9 MCH 29.6 MCHC 32.6 RDW 15.3 H RDW Differential 50.6 H Plt Count 142 L MPV 9.9 Immature Gran % (Auto) Neut % (Auto) Lymph % (Auto) [place] % (Auto) Eos % (Auto) Baso % (Auto) Absolute Neuts (auto) Absolute Lymphs (auto) Total Counted ESR PT INR Sodium Potassium Chloride Carbon Dioxide Anion Gap BUN Creatinine Estim Creat Clear Calc Est GFR (MDRD) Af Amer Est GFR (MDRD) Non-Af BUN/Creatinine Ratio Glucose Calcium Total Bilirubin Direct Bilirubin AST ALT Alkaline Phosphatase Troponin I < 0.015 < 0.015 C-React Prot Ext Range B-Natriuretic Peptide Total Protein Albumin Globulin Albumin/Globulin Ratio Triglycerides Cholesterol LDL Cholesterol VLDL Cholesterol HDL Cholesterol Lipase TSH 08/23/17 08/23/17 08/23/17 05:05 05:05 05:05 WBC RBC Hgb Hct MCV MCH MCHC RDW RDW Differential Plt Count MPV Immature Gran % (Auto) Neut % (Auto) Lymph % (Auto) [place] % (Auto) Eos % (Auto) Baso % (Auto) Absolute Neuts (auto) Absolute Lymphs (auto) Total Counted ESR PT 23.6 H INR 2.1 Sodium 141 Potassium 4.2 Chloride 106 Carbon Dioxide 27.0 Anion Gap 8 BUN 21 H Creatinine 1.39 H Estim Creat Clear Calc 47.84 Est GFR (MDRD) Af Amer 65 Est GFR (MDRD) Non-Af 54 L BUN/Creatinine Ratio 15.1 Glucose 102 Calcium 8.4 L Total Bilirubin 0.80 Direct Bilirubin AST 20 ALT 25 Alkaline Phosphatase 72 Troponin I C-React Prot Ext Range B-Natriuretic Peptide 73.2 Total Protein 6.7 Albumin 2.9 L Globulin 3.8 Albumin/Globulin Ratio 0.8 L Triglycerides 228 H Cholesterol 117 LDL Cholesterol 34 VLDL Cholesterol 46 H HDL Cholesterol 37 L Lipase TSH 1.57 08/24/17 08/24/17 08/24/17 05:20 05:20 05:20 WBC 5.9 RBC 4.22 L Hgb 12.4 L Hct 38.6 L MCV 91.5 MCH 29.4 MCHC 32.1 RDW 15.3 H RDW Differential 51.6 H Plt Count 142 L MPV 9.2 Immature Gran % (Auto) 0.200 Neut % (Auto) 59.5 Lymph % (Auto) 23.8 [place] % (Auto) 11.3 H Eos % (Auto) 4.4 Baso % (Auto) 0.8 Absolute Neuts (auto) 3.5 Absolute Lymphs (auto) 1.41 Total Counted Not Reportable ESR PT 25.9 H INR 2.4 Sodium 145 Potassium 4.2 Chloride 106 Carbon Dioxide 32.0 Anion Gap 7 BUN 20 H Creatinine 1.33 H Estim Creat Clear Calc 50.00 Est GFR (MDRD) Af Amer 68 Est GFR (MDRD) Non-Af 56 L BUN/Creatinine Ratio 15.0 Glucose 102 Calcium 8.7 Total Bilirubin Direct Bilirubin AST ALT Alkaline Phosphatase Troponin I C-React Prot Ext Range B-Natriuretic Peptide Total Protein Albumin Globulin Albumin/Globulin Ratio Triglycerides Cholesterol LDL Cholesterol VLDL Cholesterol HDL Cholesterol Lipase TSH 08/24/17 08/24/17 05:20 05:20 WBC RBC Hgb Hct MCV MCH MCHC RDW RDW Differential Plt Count MPV Immature Gran % (Auto) Neut % (Auto) Lymph % (Auto) [place] % (Auto) Eos % (Auto) Baso % (Auto) Absolute Neuts (auto) Absolute Lymphs (auto) Total Counted ESR 9 PT INR Sodium Potassium Chloride Carbon Dioxide Anion Gap BUN Creatinine Estim Creat Clear Calc Est GFR (MDRD) Af Amer Est GFR (MDRD) Non-Af BUN/Creatinine Ratio Glucose Calcium Total Bilirubin Direct Bilirubin AST ALT Alkaline Phosphatase Troponin I C-React Prot Ext Range < 2.90 B-Natriuretic Peptide Total Protein Albumin Globulin Albumin/Globulin Ratio Triglycerides Cholesterol LDL Cholesterol VLDL Cholesterol HDL Cholesterol Lipase TSH none Operations: None Procedures: Stress test - Gated nuclear ejection fraction is 25%. There was extensive defect noted involving the inferior wall, mid lateral wall, apex and apical lateral wall. No ischemia present. 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 The pain did not radiate and it was associated with nausea. He related that he was scheduled for an ERCP in the future. Chest x- ray showed stable cardiomegaly with hyperexpansion consistent with COPD. He is a former smoker. Troponin was less than 0.015. EKG showed sinus rhythm with PACs, left axis deviation, inferior and lateral infarcts, age undetermined. He was admitted to a monitored bed on PCU and serial cardiac enzymes were negative. A pharmacologic nuclear exercise test was performed on 08/24/2017 and showed an extensive defect noted involving the inferior wall, mid lateral wall, apex and apical lateral wall. There was no ischemia present. The gated nuclear ejection fraction was 25%. Telemetry showed no significant ectopy or ventricular dysrhythmia. He was discharged home and instructed to follow-up with his primary care physician and the hand inspector performing the ERCP. He will continue to adhere to a low-fat diet. Discharge Activity: Return to Normal Activity Call your doctor if you observe: Fever of 101 or Higher, Shortness of breath, Dizziness, Fainting spells, Swelling in the ankles, Calf discomfort Home Medications: Medications to take at Discharge Nitroglycerin [Nitrostat] 0.4 mg SUBLINGUAL Q5M PRN 06/11/13 Pantoprazole Sodium [Protonix] 40 mg PO BID 06/11/13 Atorvastatin Calcium [Lipitor] 40 mg PO QHS 05/15/16 Magnesium Oxide [Mag-Ox 400] 400 mg PO SUTH 05/15/16 Sacubitril/Valsartan 49-51 mg [Entresto 49 mg-51 mg Tablet] 1 tab PO BID Acetaminophen [Tylenol] 1,000 mg PO DAILY PRN 08/22/17 Aspirin [Aspirin, Baby] 81 mg PO QHS 08/22/17 Docusate Sodium [Colace] 200 mg PO QHS 08/22/17 Fluticasone 0.05% [Flonase Nasal [place]] 1 spray NASAL DAILY 08/22/17 Furosemide [Lasix] 40 mg PO BID 08/22/17 Metoprolol Succinate [Toprol Xl] 25 mg PO DAILY 08/22/17 Potassium Chloride [K-Dur] 10 meq PO BID 08/22/17 Warfarin Sodium 5 mg PO DAILY 08/22/17 Metamucil PO DAILY 08/23/17 Spironolactone 25 mg PO BID 08/23/17 Primary Care Physician: Lilly Starr MD [Primary Care Provider] - Please follow up with your Primary Care Physician in: 3-5 days Disposition: Home Minutes spent on discharge:: 30 Patient Condition:: Good Medical Necessity - Tobacco Use Smoking Status: Former smoker Tobacco Use: Non-smoker Meaningful Use Info Meaningful Use Diagnoses (Choose all that apply): None applicable Code Visit OBSV E&M: 53480 Observation care discharge
== END 2017-08-24 13:49 | disposition home or self-care (01) ==
LOC: ED 18:21 → PCU 20:13
PROVIDERS: Emergency Medicine; Internal Medicine; Admitting Provider Internal Medicine; Emergency Provider Emergency Medicine; Family Provider Internal Medicine; PCP Internal Medicine; Visit Provider Internal Medicine
DX: R07.89 Other chest pain (principal); I25.2 Old myocardial infarction; I48.2 Chronic atrial fibrillation; I25.10 Atherosclerotic heart disease of native coronary artery without angina pectoris; Z95.5 Presence of coronary angioplasty implant and graft; I10 Essential (primary) hypertension; E78.5 Hyperlipidemia, unspecified; I48.0 Paroxysmal atrial fibrillation; I11.0 Hypertensive heart disease with heart failure; Z87.891 Personal history of nicotine dependence; Z95.810 Presence of automatic (implantable) cardiac defibrillator; Z79.899 Other long term (current) drug therapy; Z79.82 Long term (current) use of aspirin; Z79.01 Long term (current) use of anticoagulants
CPT/HCPCS: 36415; 71045; 78452; 80048; 80053; 80061; 80076; 83690; 83880; 84443; 84484; 85025; 85027; 85610; 85652; 86140; 93005; 93017; 93306; 96361; 96374; 99218; 99285; A9500; J7030; J7040; Q9957; A4216; C8929; G0378; J2785

== ENCOUNTER 2018-02-12 14:44 | Emergency (ER) | payer MEDICARE, SELFPAY ==
[2018-02-12 14:46] VITALS: BP 132/75; PULSE 60; RESP 16; TEMP 36.4; O2SAT 97; BMI 32.1
--- NOTE | 2018-02-12 15:11 | CT_ITS ---
STUDY: CT ABDOMEN AND PELVIS WITH CONTRAST REASON FOR EXAM: Male, 72 years old. Diffuse abdominal pain for 2 months. History of cholecystectomy, hypertension and kidney stones. RADIATION DOSAGE (If Supplied By Facility): CTDIvol = ( 21.42 ) mGy, DLP = ( 1251.11 ) mGycm TECHNIQUE: Transaxial images were obtained from the dome of the diaphragm to the symphysis pubis with oral contrast. 100mL ml of Isovue 300 contrast was administered. Sagittal and coronal images were reconstructed. Individualized dose optimization techniques were used for this CT. COMPARISON: X-ray chest 08/22/2017 FINDINGS: Body wall soft tissues: No acute process. Osseous structures: Multilevel moderate lumbar degenerative disc disease between L2 and S1 associated with mild foraminal narrowing. Slight scoliosis. Inferior chest: Lung bases are clear, normal distal esophagus, mild cardiomegaly, ectasia in particular of the left ventricle, evidence of prior myocardial infarction, low density features of the subendocardium of the majority of the left ventricle. In particular the inferior wall and lateral wall and apex. Thinning of the apex without aneurysm. Pacer wires present. Hepatobiliary: Tiny nonenhancing cystlike focus in the left liver measures approximately 4 mm, too small for imaging characterization. There is evidence of mild hepatic steatosis without hepatomegaly. Gallbladder surgically absent. Nondilated biliary tree. Pancreas: No acute process. Spleen: Normal. Adrenal glands: Normal. Urogenital: Benign right renal cyst 1.1 cm. Small foci of cortical infarct of the left kidney mid polar cortex. Symmetric nephrograms. Normal collecting systems. No retained renal calculi. Normal ureters, urinary bladder. No significant prostatomegaly. Symmetric and grossly normal seminal vesicles. Pelvic floor and sidewalls and retroperitoneum: No mass or lymphadenopathy. Vasculature: There is slight fusiform nonaneurysmal ectasia of the distal infrarenal abdominal aorta 2.2 cm. Mild atherosclerosis. Stomach: No acute process. Small bowel and mesentery: No acute process. Large bowel: Normal appendix. There is fatty fixation of the wall of the distal sigmoid and rectum consistent with sequela of prior episodes of proctocolitis without evidence of acute inflammation. Large bowel otherwise unremarkable. Free fluid or free air: None. CT/Abdomen/Pelvis WITH Contrast IMPRESSION: No acute abdominopelvic process is evident. Chronic findings are detailed within the body of the report. Electronically Signed: Quintin Marroquin MD at 17:37 EST Tel , Service support ,
--- NOTE | 2018-02-12 15:13 | ED.VISSUMM ---
- ER Visit Summary Date of Service: 02/12/18 Chief Complaint: Diffuse intermittent abdominal pain History of Present Illness: The patient is a 72 M history of CAD with one cardiac stent. Pacemaker defibrillator. Prior strokes and MIs. Prior cholecystectomy. Patient had upper endoscopy x2 in the last 2 years both of which were negative. He states they have not chosen to do a colonoscopy on him due to the electrolyte shifts with the bowel prep and his history of pacemaker defibrillator. He states the last 2 months he has had intermittent abdominal pain. He states it is diffuse. At times is crampy at other times is sharp or stabbing. Other times he states it is dull and aching. He denies any dysuria. No melena. No weight loss he is actually put on a little weight. He denies any fever. He denies any specific food intolerances. At times he has diarrhea at other times he has constipation. Physical Examination: Older male no acute distress. Vital signs are stable. Afebrile. Initial blood pressure 132/75. Patient does not look septic nor toxic. He is in no distress. He does not look particularly dehydrated. HEENT exam unremarkable. Neck nontender. Lungs clear to auscultation bilaterally. Heart regular rhythm no murmur. Abdomen soft and nontender. Normal bowel sounds. No peritoneal signs. Minimal tenderness on both flanks. He is nondistended. No signs of obstruction. No hernias or masses. Right lower quadrant unremarkable. Patient is moving all 4 extremities. They are neurovascularly intact. Calves are nontender without edema or cords. Neurologically is awake alert with no focal motor deficits. Test Results: CBC normal white count of 7. Hemoglobin 14. Electrolytes unremarkable gap of 9 creatinine 1.1. Liver enzymes normal. Lipase normal. INR of 2.3. UA normal. CT abdomen pelvis with both IV and oral contrast shows no acute abnormality. Normal appendix. Reviewed by myself read by the radiologist. Emergency Department Course and Treatment: Patient will undergo a GI workup including CT abdomen pelvis with contrast. Repeat exam patient is doing well at both 1700 and 1808. Abdomen remains benign. Comfortable being discharged home. Treatment Plan: Follow-up with primary care physician. Disposition: Discharge Impression: Acute abdominal pain of uncertain etiology History of CAD with one cardiac stent History of pacemaker defibrillator History of prior strokes This note was generated with [employer] software. It may contain incorrect words, spelling, and punctuation that were not noted in review of the chart prior to signing ED Disposition - Plan for ED Patient: Disposition: Home or Assisted Living Chief Complaint: Abd Pain Instructions: ED Abdominal Pain Unkn Cause Prescriptions: Ondansetron [Zofran Odt] 4 mg PO Q8H PRN PRN #7 tab PRN Reason: Nausea Referrals: Lilly Starr MD [Primary Care Provider] - 1 Week if not improving Additional Instructions: Plenty of fluids and rest. Zofran as needed for nausea. Follow-up with your doctor if not improving.
--- NOTE | 2018-02-12 15:19 | ED.DEP ---
ED Disposition - Plan for ED Patient: Disposition: Home or Assisted Living Chief Complaint: Abd Pain Instructions: ED Abdominal Pain Unkn Cause Prescriptions: Ondansetron [Zofran Odt] 4 mg PO Q8H PRN PRN #7 tab PRN Reason: Nausea Referrals: Lilly Starr MD [Primary Care Provider] - 1 Week if not improving Additional Instructions: Plenty of fluids and rest. Zofran as needed for nausea. Follow-up with your doctor if not improving.
[2018-02-12] MEDS: 0.9% Normal Saline 1,000 ML 125 ML IV (15:26)
[2018-02-12 15:37] LABS: Absolute Lymphocyte Count 1.75 X10^3/ul (0.83-4.51); Absolute Neutrophil Count 4.8 X10^3/uL (2.0-7.7); Basophil# 0.02 X10^3/uL; Basophil% 0.3 % (0-1); Eosinophil# 0.06 X10^3/uL; Eosinophils% 0.8 % (0-5); Hematocrit 41.6 % (40-54); Hemoglobin 14.1 g/dl (13.0-16.5); Lymphocyte # 1.75 X10^3/ul (4.0); Lymphocyte % 23.9 % (19-41); Mean Corp Hgb Conc 33.9 g/gl (32-36); Mean Corpuscular Hgb 31.2 pg (27.0-32.0); Mean Platelet Vol. 9.5 fl (6.2-12.0); Monocyte# 0.63 X10^3/uL; Monocyte% 8.6 % (0-10); Neutrophil # 4.84 X10^3/uL (2.7-7.7); Neutrophil % 66.3 % (47-70); POSITIVE COUNT NO; POSITIVE DIFFERENTIAL NO; POSITIVE MORPHOLOGY NO; Platelet Count 181 K/mm3 (150-450); RBC Distribution Width CV 13.4 % (11.6-14.6); RBC Distribution Width SD 44.5 fl (35.1-43.9); Red Blood Count 4.52 M/mm3 (4.6-6.2); White Blood Count 7.3 K/mm3 (4.4-11.0)
--- NOTE | 2018-02-12 15:48 | CM.ED ---
Social Work Note Referral from Mansoor Dasilva RN. States that EMS reports the pt's , Britany, has stated she would cut herself if they did not transport her. Face to face with the pt, not present at this time. Introduced self and role at [facility]. The pt reports that he lives with his in a two-story home with a ramp for entry. Does require both the first and second floor and pt reports that he can access the stairs well if he moves slowly. DMe used in the home are a walker, cane and portable oxygen which he receives through [facility]. He has not had home health in the past but states he thinks it is time. Educate to skilled vs. private services and pt feels that he would benefit from a nurse and requests [facility] services. Confirms that his PCP is Dr. Starr, and other specialists are Dr. Lucero, Dr. Gomez, Dr. Darling and Dr. Brizuela. His preferred pharmacy for short-term medications is [facility] in [place]. Long-term medications are received through [facility]. Pt denies mental health of his own, but states that his has Bipolar DO, Depression and is suicidal. States that she made a suicidal comment today. Reports that the pt has had 4 suicidal attempts and has been hospitalized. At this time enters. Introduce self and role at [facility]. Britany states that she made the comment about harming herself today because she was stressed. Ask the pt if she is having thoughts of killing herself and she states, not really. Request that she explain this comment more and she states, I do not want to talk right now. Explain that because of the nature of her comment and that she is not cooperating this technical report writer needs to ensure that she is safe before she would go home. Britany stands up and states, I will be safe at home. I want to leave right now. Pt begins requesting that the pt stay with him. This technical report writer tells Britany to sit, and exits the room. Discuss with ED Director and grain oilseed or pasture farm manager and opt to involve, Ector Malone, Hospital Resource Officer who will go to room and do a wellness check so that if Britany intends on leaving she can be pink slipped. Will discuss home health care referral per pt's request with physician. SW to continue to follow and assist as needed. PLAN: Pt to be established with shelter through [facility]. to be evaluated by PD. Abbie Hallman, STANDARD MACHINE STITCHER, HYDROELECTRIC PLANT OPERATOR
[2018-02-12 15:51] LABS: Albumin, Serum 3.7 g/dL (3.2-5.0); BUN 14 mg/dL (7-18); BUN/Creat Ratio 12.1 RATIO (10-20); Creatinine, Serum 1.16 mg/dL (0.70-1.30); EST Glomerular Filtration Rate 66 mL/min (>60); Est Glom Filt Rate - Afr Amer 80 mL/min (>60); Estimated Creatinine Clearance 59.26 ml/min; Glucose 119 mg/dL (74-106); Protein, Total 7.2 g/dL (6.4-8.2)
[2018-02-12 15:52] LABS: AST(SGOT) 33 U/L (15-37); Alanine Aminotransfer ALT/SGPT 53 U/L (16-61); Alkaline Phosphatase 90 U/L (45-117); Anion Gap 9 (5-15); Bilirubin, Direct 0.17 mg/dL (0.00-0.30); Calcium,Total 8.7 mg/dL (8.5-10.1); Chloride 106 mmol/L (98-107); Globulin 3.5 g/dL (2.2-4.2); Lipase 110 U/L (73-393); Potassium 4.3 mmol/L (3.5-5.1); Sodium Level 141 mmol/L (136-145)
[2018-02-12 16:03] LABS: Bacteria 0 SEEN /hpf (None Seen); Mucous, Urine 0 SEEN /hpf (<or=2+); White Blood Cells 0 SEEN /hpf (0-5)
[2018-02-12 16:04] LABS: International Normalized Ratio 2.3
--- NOTE | 2018-02-12 16:22 | CM.ED ---
Social Work Note Updated by Ector Malone, who does not have a reason to pink slip Britany at this time. Does state she reported she has a caseworker protective services through [facility]. Placed call and was transferred to Britany's caseworker protective services, Albina Colon, and left updating on situation and requesting that she follow-up with Britany in the next day or two. SW to continue to follow and assist as needed. Abbie Hallman, INDUSTRIAL HYGENIST, FREIGHT SOLICITOR
--- NOTE | 2018-02-12 16:26 | CM.ED ---
Social Work Note Order for HHC - SN placed. Called Birna with [facility] and notified of referral. Anticipated SOC date Wednesday 02/15. SAVANNAH Wadsworth, VENUS
[2018-02-12 16:29] LABS: Color, Urine Yellow (Yellow); Glucose, Dipstick Normal (Normal); Ketone-Dipstick Negative (Negative); Leukocyte Esterase-Dipstick Negative /ul (Negative); Nitrite-Dipstick Negative (Negative); Occult Blood-Urine 10 /ul (Negative); Protein-Dipstick Negative (Negative); Urine Bilirubin Dipstick Negative (Negative); Urine Clarity Clear (Clear); Urine Urobilinogen Normal (Normal)
[2018-02-12 16:47] LABS: Red Blood Cells-Urine 0-5 SEEN /hpf (0-5); Squamous Epithelial Cells - UA 0-5 SEEN /hpf (0-5)
[2018-02-12 18:07] VITALS: BP 91/51; PULSE 60; RESP 16; O2SAT 97
[2018-02-12 18:13] VITALS: BP 99/59; PULSE 62; RESP 18; O2SAT 97
== END 2018-02-12 18:26 | disposition home or self-care (01) ==
PROVIDERS: Emergency Provider Emergency Medicine; Family Provider Internal Medicine; PCP Internal Medicine
DX: R10.9 Unspecified abdominal pain (principal); K59.00 Constipation, unspecified; R19.7 Diarrhea, unspecified; I25.10 Atherosclerotic heart disease of native coronary artery without angina pectoris; I25.2 Old myocardial infarction; Z86.73 Personal history of transient ischemic attack (TIA), and cerebral infarction without residual deficits; Z95.810 Presence of automatic (implantable) cardiac defibrillator; Z90.49 Acquired absence of other specified parts of digestive tract
CPT/HCPCS: 74177; 80048; 80076; 81001; 83690; 85025; 85610; 96360; 96361; 99285; J7030; Q9967; A4216

== ENCOUNTER 2018-12-03 05:24 | Inpatient (IN) | payer MEDICARE, SELFPAY ==
[2018-08-26 13:44] VITALS: BMI 32.9
[2018-12-03] VITALS (13 sets, daily range): BP systolic 93–113; BP diastolic 60–84; PULSE 62–83; RESP 15–20; TEMP 36.4–36.8; O2SAT 94–97; BMI 34.2; BMI 33.2
--- NOTE | 2018-12-03 05:48 | CT_ITS ---
STUDY: CT ABDOMEN AND PELVIS WITH CONTRAST REASON FOR EXAM: Male, 73 years old. Chest and abdominal pain. Elevated white cell count. RADIATION DOSAGE (If Supplied By Facility): CTDIvol = ( 16.30 ) mGy, DLP = ( 1189.07 ) mGycm TECHNIQUE: Transaxial images were obtained from the dome of the diaphragm to the symphysis pubis with oral contrast. IV/Oral Isovue 300 100ML was administered. Sagittal and coronal images were reconstructed. Individualized dose optimization techniques were used for this CT. COMPARISON: Comparison is made with prior study dated February 12, 2018. FINDINGS: The visualized lung bases are unremarkable. Coronary artery calcification. Dual-chamber pacemaker is seen. There is decreased attenuation of the liver consistent with steatosis. A subcentimeters cyst is seen in the left lobe of the liver. There are surgical clips in the gallbladder fossa consistent with a prior cholecystectomy. Normal spleen. Normal pancreas. Normal bilateral adrenal glands. Stable 1.1 cm cyst in the lower pole of the right kidney. Cortical scarring of the left kidney. Normal visualized stomach. Normal small intestine. Stable appearance of the rectosigmoid colon with evidence of fatty fixation of the wall suggestive of a prior proctocolitis. The appendix is visualized and appears normal. There is diffuse atherosclerotic calcification of the abdominal aorta, without a demonstrated aneurysm. Normal inferior vena cava. Normal retroperitoneum. Normal urinary bladder. There is enlargement of the prostate gland. It measures 4 cm x 4.5 cm. Calcifications are seen within it. Normal abdominal wall. There are diffuse degenerative changes of the visualized lumbar spine. CT/Abdomen/Pelvis WITH Contrast IMPRESSION: Fatty infiltration of the liver. Stable 4 mm cyst in the left lobe of the liver. Cortical scarring of the left kidney. Stable appearance of the rectosigmoid colon without acute process at this time. Prostatic enlargement with prostatic calcifications. Electronically Signed: Jose Miguel Thomas, at 8:17 EDT , Service support ,
--- NOTE | 2018-12-03 05:49 | EKG12_ITS ---
Test Reason : CP Blood Pressure : / mmHG Vent. Rate : 072 BPM Atrial Rate : 072 BPM P-R Int : 154 ms QRS Dur : 100 ms QT Int : 422 ms P-R-T Axes : 052 -50 036 degrees QTc Int : 462 ms Normal sinus rhythm Left axis deviation Inferior infarct (cited on or before 11-JUN-2013), age undetermined Anterolateral infarct (cited on or before 19-MAR-2015), age undetermined Abnormal ECG Confirmed by SHARLENE TRAVIS, JOSEPH ([id number]), purchase request editor FIDENCIO DYER ([id number]) on 12/07/2018 10:49:53 AM Referred By: ANDREEA Confirmed By:JOSEPH SU MD
--- NOTE | 2018-12-03 05:50 | ED.DCSUM_ITS ---
History of Present Illness Chief Complaint: Chest Pain Narrative: Patient is a 73-year-old male who presents with abdominal pain and chest pain. He points to his epigastric region. He also reports nausea and dry heaving. He had one large episode of diarrhea this morning. This is actually been a chronic recurrent issue for the patient. Previously he was admitted for similar symptoms and had a work-up including a stress test which showed no acute ischemia. He also had another emergency department visit with labs and imaging. He is actually had 2 upper endoscopies for the symptoms as well. His symptoms are similar in character and location to previous bouts that he is actually had for couple years. He describes the pain as cramping. He has had a prior cholecystectomy. No fever. He denies any recent illness. No shortness of breath. No cough. Past Medical History - Allergies and Home Meds Allergies/Adverse Reactions: Allergies gemfibrozil Allergy (Intermediate, Verified 12/03/18 05:38) upset stomach; constipation amiodarone Adverse Reaction (Severe, Verified 12/03/18 05:38) Pulmonary fibrosis esomeprazole magnesium [From Nexium] Adverse Reaction (Verified 12/03/18 05:38) Diarrhea Primary Care Physician: Lilly Starr MD [Primary Care Provider] - Past Medical History: - - Pretension, hyperlipidemia, coronary artery disease Surgical History: cholecystectomy, pacemaker implantation, - - AICD pacemaker Smoking Status: Former smoker - Family History Maternal Family History: Family History (Last Reviewed 03/11/18 @ 14:30 by Brina Doan) Mother CVA (cerebral vascular accident) Grandfather Heart disease Father Cancer Sister Cancer Family History: Reports: No pertinent history Review of Systems All systems negative except as indicated General: Denies: Fever Cardiovascular: Reports: Chest pain Respiratory: Denies: Dyspnea, Cough Gastrointestinal: Reports: Abdominal pain, Nausea, Vomiting, Diarrhea Physical Exam Vital Signs/Narrative: Vital Signs Temp Pulse Resp BP Pulse Ox 12/03/18 05:26 98.3 F 79 20 H 111/84 H 96 Inital Vital Signs reviewed: Yes General: Well nourished, Well developed Head: Normocephalic Eyes: EOMI ENT: Moist mucous membranes Neck: Supple Cardiovascular: Regular rate, Regular rhythm Respiratory: No distress, CTA bilaterally Abdomen: Soft, - - Epigastric and right upper quadrant abdominal tenderness without guarding without rebound Skin: Normal color Neurological: Alert Psychological: Normal affect Diagnostic/Tx/Re-eval 12/03/18 05:48 Abdomen/Pelvis WITH Contrast [CT] Stat Laboratory Results 12/03/18 12/03/18 05:35 05:35 WBC 20.3 H RBC 5.04 Hgb 15.7 Hct 46.6 MCV 92.5 MCH 31.2 MCHC 33.7 RDW Std Deviation 44.5 H RDW Coeff of Vane 13.1 Plt Count 217 MPV 10.3 Immature Gran % (Auto) 0.500 Neut % (Auto) 84.2 H Lymph % (Auto) 8.3 L [place] % (Auto) 5.8 Eos % (Auto) 0.8 Baso % (Auto) 0.4 Absolute Neuts (auto) 17.1 H Absolute Lymphs (auto) 1.68 Nucleated RBC % 0 Sodium 138 Potassium 4.2 Chloride 101 Carbon Dioxide 30.0 Anion Gap 7 BUN 17 Creatinine 1.44 H Estim Creat Clear Calc 47.05 Est GFR (MDRD) Af Amer 62 Est GFR (MDRD) Non-Af 51 L BUN/Creatinine Ratio 11.8 Glucose 191 H Calcium 8.9 Total Bilirubin 1.10 H AST 27 ALT 44 Alkaline Phosphatase 94 Troponin I < 0.015 Total Protein 7.7 Albumin 4.1 Globulin 3.6 Albumin/Globulin Ratio 1.1 Lipase 95 - Medical Decision Making Patient was ordered morphine but declined. Labs are notable for white count of 20,000. Labs are otherwise essentially unremarkable. At the time of this dictation a CT of the abdomen and pelvis is pending and has been signed out to the oncoming physician to follow-up on a recheck. Patient's repeat blood pressure is borderline at 95/70 and added on a lactic acid which is pending as well. ED Disposition - Plan for ED Patient: Diagnosis: Abdominal pain Referrals: Lilly Starr MD [Primary Care Provider] -
[2018-12-03 05:55] LABS: Absolute Lymphocyte Count 1.68 X10^3/uL (0.83-4.51); Absolute Neutrophil Count 17.1 X10^3/uL (2.0-7.7); Basophil# 0.08 X10^3/uL; Basophil% 0.4 % (0-1); Eosinophil# 0.16 X10^3/uL; Eosinophils% 0.8 % (0-5); Hematocrit 46.6 % (40-54); Hemoglobin 15.7 g/dL (13.0-16.5); Lymphocyte # 1.68 X10^3/ul (4.0); Lymphocyte % 8.3 % (19-41); Mean Corp Hgb Conc 33.7 g/dL (32-36); Mean Corpuscular Hgb 31.2 pg (27.0-32.0); Mean Corpuscular Volume 92.5 fL (80-94); Mean Platelet Vol. 10.3 fl (6.2-12.0); Monocyte# 1.17 X10^3/uL; Monocyte% 5.8 % (0-10); NRBC Flagged by Analyzer 0 % (0-5); Neutrophil # 17.11 X10^3/uL (2.7-7.7); Neutrophil % 84.2 % (47-70); Platelet Count 217 K/mm3 (150-450); RBC Distribution Width CV 13.1 % (11.6-14.6); RBC Distribution Width SD 44.5 fl (35.1-43.9); Red Blood Count 5.04 M/mm3 (4.6-6.2); White Blood Count 20.3 K/mm3 (4.4-11.0)
[2018-12-03] MEDS: 0.9% Normal Saline 1,000 ML 1000 ML IV (05:57)
[2018-12-03] MEDS: Ondansetron 4 MG/2 ML Vial IV ×2 (05:58→11:22)
[2018-12-03 06:20] LABS: ALB/GLOB Ratio 1.1 RATIO (0.9-2.4); AST(SGOT) 27 U/L (15-37); Alanine Aminotransfer ALT/SGPT 44 U/L (16-61); Albumin, Serum 4.1 g/dL (3.2-5.0); Alkaline Phosphatase 94 U/L (45-117); Anion Gap 7 (5-15); BUN 17 mg/dL (7-18); BUN/Creat Ratio 11.8 RATIO (10-20); Calcium,Total 8.9 mg/dL (8.5-10.1); Chloride 101 mmol/L (98-107); Creatinine, Serum 1.44 mg/dL (0.70-1.30); EST Glomerular Filtration Rate 51 mL/min (>60); Est Glom Filt Rate - Afr Amer 62 mL/min (>60); Estimated Creatinine Clearance 47.05 ml/min; Globulin 3.6 g/dL (2.2-4.2); Glucose 191 mg/dL (74-106); Lipase 95 U/L (73-393); Potassium 4.2 mmol/L (3.5-5.1); Protein, Total 7.7 g/dL (6.4-8.2); Sodium Level 138 mmol/L (136-145)
--- NOTE | 2018-12-03 08:08 | ED.RN ---
LACTIC ACID 2.[address] DR SOTO AWARE
[2018-12-03 08:10] LABS: Lactic Acid 2.8 mmol/L (0.4-2.0)
--- NOTE | 2018-12-03 08:55 | RAD_ITS ---
STUDY: X-RAY CHEST REASON FOR EXAM: Male, 73 years old. Leukocytosis. TECHNIQUE: PA and lateral views of the chest. COMPARISON: Comparison is made with prior study dated August 22, 2017. FINDINGS: EKG electrodes are seen. The lungs are clear and expanded. There is no demonstrated pleural abnormality. There is mild cardiac enlargement. A left-sided dual-chamber pacemaker is seen. Normal mediastinum and luca. Normal visualized pulmonary arteries. There is atherosclerotic calcification of the aortic arch with tortuosity. Normal visualized thoracic spine. Normal visualized ribs, clavicles, and shoulders. There is no demonstrated abnormality of the visualized soft tissue structures of the upper abdomen. RAD/Chest PA and Lateral IMPRESSION: Mild cardiomegaly. The lungs are clear. Electronically Signed: Jose Miguel Thomas, at 9:24 EDT , Service support ,
[2018-12-03 10:17] LABS: Bacteria 0 SEEN /hpf (None Seen); Mucous, Urine 0 SEEN /hpf (<or=2+); Squamous Epithelial Cells - UA 0 SEEN /hpf (0-5); White Blood Cells 0 SEEN /hpf (0-5)
[2018-12-03 10:22] LABS: Color, Urine Yellow (Yellow); Glucose, Dipstick Normal (Normal); Ketone-Dipstick Negative (Negative); Leukocyte Esterase-Dipstick Negative /ul (Negative); Nitrite-Dipstick Negative (Negative); Occult Blood-Urine 25 /ul (Negative); Protein-Dipstick 15 mg/dl (Negative); Specific Gravity, Urine 1.005 (1.002-1.030); Urine Bilirubin Dipstick Negative (Negative); Urine Clarity Clear (Clear); Urine Urobilinogen 1 mg/dl (Normal)
[2018-12-03 10:37] LABS: Red Blood Cells-Urine 0-5 SEEN /hpf (0-5)
[2018-12-03 11:38] LABS: Reflex Lactate? Y
[2018-12-03] MEDS: 0.9% Normal Saline 1,000 ML 999 ML IV (11:57)
[2018-12-03 12:30] LABS: Lactic Acid 2.2 mmol/L (0.4-2.0)
--- NOTE | 2018-12-03 12:31 | ED.RN ---
LACTIC 2.2 CALLED FROM THE LAB
--- NOTE | 2018-12-03 12:38 | PCM.HP.STD ---
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 Orantes (5) Presence of implantable cardioverter-defibrillator (ICD) Status: Chronic Comment: [facility] [facility] [id number] [address] - Implant 06/21/13 (6) Mixed hyperlipidemia Status: Chronic (7) Chronic systolic (congestive) heart failure Status: Chronic (8) Ischemic cardiomyopathy Status: Chronic (9) Atherosclerotic heart disease of [place] coronary artery without angina pectoris Status: Chronic Qualifiers: [place] vs. transplanted heart: [place] heart Qualified Code(s): I25.10 - Atherosclerotic heart disease of [place] coronary artery without angina pectoris (10) Essential hypertension Status: Chronic (11) PAF (paroxysmal atrial fibrillation) Status: Chronic (12) Sustained VT (ventricular tachycardia) Status: Chronic History of Present Illness Date of Admission: 12/03/18 Chief Complaint: Abdominal pain The patient is a 73 year old M with multiple comorbidities including coronary artery disease status post stent in 2013, V. tach status post AICD, chronic systolic heart failure came to ER with epigastric abdominal pain for about more than 14 hours. He also had 4 times loose, watery brown diarrhea. Complain of dry heaving and a small vomiting. Patient denies fever or chills. Abdominal pain mainly in epigastric, constant without aggravating or relieving factor. Mild abdominal distention. Patient also had [address] Hua and he is on PPI twice daily. In ED, patient had EKG which showed sinus rhythm at 72 bpm the LAD. Blood pressure was low 95/70 which improved to 130/70 1:02 liter of normal saline bolus. No tachycardia. Pulse ox 96% on room air. CT abdomen was done which showed no acute intra-abdominal problem. Chest x-ray lungs clear. 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) Z79.01 Presence of stent in coronary artery (Chronic) Onset Date: ~02/21/13 Z95.5 PCI/BROOKE of the mid LAD 02/21/13 Mixed hyperlipidemia (Chronic) E78.2 Chronic systolic (congestive) heart failure (Chronic) I50.22 Acute myocardial infarction (Acute) Onset Date: ~1993 I21.9 Ischemic cardiomyopathy (Chronic) I25.5 Atherosclerotic heart disease of [place] coronary artery without angina pectoris (Chronic) I25.10 Essential hypertension (Chronic) I10 CVA (cerebral vascular accident) I63.9 Allergies gemfibrozil Allergy (Intermediate, Verified 12/03/18 05:38) upset stomach; constipation amiodarone Adverse Reaction (Severe, Verified 12/03/18 05:38) Pulmonary fibrosis esomeprazole magnesium [From Nexium] Adverse Reaction (Verified 12/03/18 05:38) Diarrhea Home Medications: Ambulatory Orders Medication Instructions Recorded Nitroglycerin (INPATIENT USE) 0.4 mg SUBLINGUAL Q5M PRN 06/11/13 [Nitrostat] Pantoprazole Sodium [Protonix] 40 mg PO BID 06/11/13 Atorvastatin Calcium [Lipitor] 40 mg PO QHS 05/15/16 Magnesium Oxide [Mag-Ox 400] 400 mg PO SUTH 05/15/16 Sacubitril/Valsartan 49-51 mg 1 tab PO BID 05/15/16 [Entresto 49 mg-51 mg Tablet] Acetaminophen [Tylenol] 1,000 mg PO DAILY PRN 08/22/17 Aspirin [Aspirin, Baby] 81 mg PO QHS 08/22/17 Furosemide [Lasix] 40 mg PO BID 08/22/17 Warfarin Sodium 5 mg PO DAILY 08/22/17 Spironolactone 25 mg PO BID 08/23/17 Ondansetron [Zofran Odt] 4 mg PO Q8H PRN PRN #7 tab 02/12/18 loperamide 2 mg tablet 2 mg PO Q1-4H PRN 03/09/18 warfarin 7.5 mg tablet 7.5 mg PO DAILY tab 03/09/18 metoprolol succinate ER 25 mg 25 mg PO DAILY #90 tab 09/20/18 tablet,extended release 24 hr potassium chloride ER 10 mEq 10 meq PO BID #180 tab 09/28/18 tablet,extended release(part/cryst) Surgical History: Surgical History (Last Reviewed 03/11/18 @ 14:30 by Brina Doan) History of cardiac radiofrequency ablation (Resolved) Z98.890 01/24, 05/26 Dr. Orantes Presence of implantable cardioverter-defibrillator (ICD) (Chronic) Onset Date: ~06/21/[address] [facility] [facility] [id number] - Implant 06/21/13 Presence of coronary angioplasty implant and graft Onset Date: ~02/21/13 Z95.5 PCI/BROOKE of the mid LAD 02/21/13 History of cholecystectomy Z90.49 Surgical History: cholecystectomy, pacemaker implantation, - - AICD pacemaker Psychiatric History: No pertinent psych hx Smoking Status: Former smoker - *Family History Maternal Family History: Family History (Last Reviewed 03/11/18 @ 14:30 by Brina Doan) Mother CVA (cerebral vascular accident) Grandfather Heart disease Father Cancer Sister Cancer History Items: No pertinent history Review of Systems Constitutional: Denies: Chills, Fever, Weight Change HEENT: Denies: Head Aches, Sinus Congestion, Sinus Drainage Cardiovascular: Denies: Chest Pain, Palpitations Respiratory: Denies: Cough, Shortness of breath at rest, Sputum production Gastrointestinal: Reports: Abdominal Pain, Diarrhea, Dyspepsia, Nausea, Vomiting Genitourinary: Denies: Dysuria, Frequency, Hematuria Musculoskeletal: Reports: Back Pain, Joint Pain. Denies: Joint Tenderness Skin: Denies: Rash, Wounds Neurological: Reports: Balance problems. Denies: Focal weakness, Numbness, Tingling Psychiatric: Denies: Anxiety, Depression, Homicidal Ideations, Suicidal Ideations Hematologic/ Lymphatic: Denies: Easy Bruising, Easy Bleeding VTE Information - Inpt Only VTE Present on Admission: No VTE Mechan Device Prophylaxis: None VTE Pharm Prophylaxis ordered?: No Reason prophylaxis not ordered:: Procedure Not Indicated - Already on Coumadin Patient Problems: Active and Suspected Problems (Last Updated 03/19/18 @ 11:56 by Izzy Demarco) Abdominal pain (Acute) - Physical Exam Vitals/I&O's: Vital Signs Temp Pulse Resp BP Pulse Ox 97.6 F L 75 16 113/72 96 12/03/18 11:54 12/03/18 11:54 12/03/18 11:54 12/03/18 11:54 12/03/18 11:54 Oxygen Flow Rate (L/min) 2 Oxygen Delivery Method Room Air Weight: 231 lb 11.293 oz Body Mass Index (BMI) 34.2 Intake and Output for Last 24 Hours 12/01/18 12/02/18 12/03/18 23:59 23:59 23:59 Intake Total 1000 / 1000 Balance 1000 / 1000 General: Alert, Oriented x3, Cooperative HEENT: Atraumatic, PERRLA, EOMI, Normocephalic Neck: Supple, No JVD, Negative Carotid Bruits Lungs: Clear to auscultation, Normal air movement Cardiovascular: Regular rate, Regular Rhythm, Normal S1, Normal S2, No murmurs, - - AICD present Abdomen: Bowel Sounds Present, Soft, Non Tender Extremities: No edema, Capillary Refill Less than 3 Seconds Skin: No rashes, No breakdown Musculoskeletal: No Tenderness to Palpation of Joints or Extremities, Arthritic Changes Neurological: Cranial nerves II-XII grossly intact, Deep Tendon Reflexes 2+/4 and Symmetrical, Neuro grossly intact, Motor Exam 5/5 strength throughout Psych/Mental Status: Normal Affect, Appropriate Laboratory Results 12/03/18 05:35: WBC 20.3 H, RBC 5.04, Hgb 15.7, Hct 46.6, MCV 92.5, MCH 31.2, MCHC 33.7, RDW Std Deviation 44.5 H, RDW Coeff of Vane 13.1, Plt Count 217, MPV 10.3, Immature Gran % (Auto) 0.500, Neut % (Auto) 84.2 H, Lymph % (Auto) 8.3 L, [place] % (Auto) 5.8, Eos % (Auto) 0.8, Baso % (Auto) 0.4, Absolute Neuts (auto) 17.1 H, Absolute Lymphs (auto) 1.68, Nucleated RBC % 0 12/03/18 05:35: Sodium 138, Potassium 4.2, Chloride 101, Carbon Dioxide 30.0, Anion Gap 7, BUN 17, Creatinine 1.44 H, Estim Creat Clear Calc 47.05, Est GFR (MDRD) Af Amer 62, Est GFR (MDRD) Non-Af 51 L, BUN/Creatinine Ratio 11.8, Glucose 191 H, Calcium 8.9, Total Bilirubin 1.10 H, AST 27, ALT 44, Alkaline Phosphatase 94, Troponin I < 0.015, Total Protein 7.7, Albumin 4.1, Globulin 3.6, Albumin/Globulin Ratio 1.1, Lipase 95 12/03/18 07:26: Lactic Acid 2.8 H 12/03/18 10:08: Urine Color Yellow, Urine Clarity Clear, Urine pH 7.0, Ur Specific Far[place] 1.005, Urine Protein 15 H, Urine Glucose (UA) Normal, Urine Ketones Negative, Urine Occult Blood 25 H, Urine Nitrite Negative, Urine Bilirubin Negative, Urine Urobilinogen 1 H, Ur Leukocyte Esterase Negative, Urine RBC 0-5 SEEN, Urine WBC 0 SEEN, Ur Squamous Epith Cells 0 SEEN, Urine Bacteria 0 SEEN, Urine Mucus 0 SEEN 12/03/18 11:48: Lactic Acid 2.2 H Current Medications Aspirin (Aspirin, Baby) 81 mg PO QHS [facility] Atorvastatin Calcium (Lipitor) 40 mg PO QHS [facility] Pantoprazole Sodium 40 mg/ (Sodium Chloride) 110 mls @ 330 mls/hr IV Q12 [facility] Magnesium Oxide (Mag-Ox 400) 400 mg PO SUTH [facility] Metoprolol Succinate (Toprol Xl (Beta Angela)) 25 mg PO DAILY [facility] Ondansetron HCl (Zofran Odt) 4 mg PO Q8H PRN PRN PRN Reason: NAUSEA Potassium Chloride (K-Dur) 10 meq PO BID [facility] Sacubitril/Valsartan (Entresto 49 Mg-51 Mg Tablet) each PO BID [facility] Warfarin Sodium (Coumadin (Pbkc)) 5 mg PO DAILY [facility]; Protocol Warfarin Sodium (Coumadin (Pbkc)) 7.5 mg PO DAILY [facility]; Protocol Assessment/Plan All Active Problems (Last Updated 03/19/18 @ 11:56 by Izzy Demarco) Abdominal pain (Acute) History of cardiac radiofrequency ablation (Resolved) AICD discharge (Resolved) Acute renal failure (Resolved) Dehydration (Resolved) Nausea & vomiting (Resolved) Smoking addiction (Resolved) The patient is a 73 year old M with multiple comorbidities including coronary artery disease status post stent in 2013, V. tach status post AICD, chronic systolic heart failure came to ER with epigastric abdominal pain for about more than 14 hours. He also had 4 times loose, watery brown diarrhea. Complain of dry heaving and a small vomiting. Patient denies fever or chills. Abdominal pain mainly in epigastric, constant without aggravating or relieving factor. Mild abdominal distention. Patient also had [address] Hua and he is on PPI twice daily. In ED, patient had EKG which showed sinus rhythm at 72 bpm the LAD. Blood pressure was low 95/70 which improved to 130/70 1:02 liter of normal saline bolus. No tachycardia. Pulse ox 96% on room air. CT abdomen was done which showed no acute intra-abdominal problem. Chest x-ray lungs clear. 1. Possible Sepsis (hypotension, leukocytosis, lactic acidosis) from intra-abdominal infection or intravascular volume depletion/dehydration: Patient is being admitted in PCU. IV fluid normal saline total of 2 L and then Ringer lactate 100 mils per hour. Stool for C. difficile, WBC, occult blood and enteric bacteriology panel ordered. Surgeon Dr. Marley consult for further evaluation and comanagement. CT abdomen negative for diverticulitis or intra-abdominal abscess. It seems patient might have viral/bacterial enteric infection therefore will wait for C. difficile and stool test before jumping on antibiotic. Patient did not have any fever. 2. Cardiac conditions: Coronary artery status post stent, chronic systolic heart failure, history of V. tach status post AICD, paroxysmal A. fib on Coumadin: Home medication continued. Patient is on Coumadin. PT/INR ordered. Hold diuretic Lasix and spironolactone and resume once patient is euvolemic. Cardiac monitoring. Patient follows Dr. Jorge. 3. 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 States does not have COPD. Was on amiodarone was discontinued with concern of lung injury. The patient uses 2 L of oxygen at night during sleep. 4. Other comorbidities include dyslipidemia, hypertension: Home medication reconciliation done DVT on Lovenox. Laboratory Results 12/03/18 05:35: WBC 20.3 H, RBC 5.04, Hgb 15.7, Hct 46.6, MCV 92.5, MCH 31.2, MCHC 33.7, RDW Std Deviation 44.5 H, RDW Coeff of Vane 13.1, Plt Count 217, MPV 10.3, Immature Gran % (Auto) 0.500, Neut % (Auto) 84.2 H, Lymph % (Auto) 8.3 L, [place] % (Auto) 5.8, Eos % (Auto) 0.8, Baso % (Auto) 0.4, Absolute Neuts (auto) 17.1 H, Absolute Lymphs (auto) 1.68, Nucleated RBC % 0 12/03/18 05:35: Sodium 138, Potassium 4.2, Chloride 101, Carbon Dioxide 30.0, Anion Gap 7, BUN 17, Creatinine 1.44 H, Estim Creat Clear Calc 47.05, Est GFR (MDRD) Af Amer 62, Est GFR (MDRD) Non-Af 51 L, BUN/Creatinine Ratio 11.8, Glucose 191 H, Calcium 8.9, Total Bilirubin 1.10 H, AST 27, ALT 44, Alkaline Phosphatase 94, Troponin I < 0.015, Total Protein 7.7, Albumin 4.1, Globulin 3.6, Albumin/Globulin Ratio 1.1, Lipase 95 12/03/18 07:26: Lactic Acid 2.8 H 12/03/18 10:08: Urine Color Yellow, Urine Clarity Clear, Urine pH 7.0, Ur Specific [place] 1.005, Urine Protein 15 H, Urine Glucose (UA) Normal, Urine Ketones Negative, Urine Occult Blood 25 H, Urine Nitrite Negative, Urine Bilirubin Negative, Urine Urobilinogen 1 H, Ur Leukocyte Esterase Negative, Urine RBC 0-5 SEEN, Urine WBC 0 SEEN, Ur Squamous Epith Cells 0 SEEN, Urine Bacteria 0 SEEN, Urine Mucus 0 SEEN 12/03/18 11:48: Lactic Acid 2.2 H Clinical Impression(s) from Imaging Studies Abdomen/Pelvis CT 12/03/18 05:48 IMPRESSION: Fatty infiltration of the liver. Stable 4 mm cyst in the left lobe of the liver. Cortical scarring of the left kidney. Stable appearance of the rectosigmoid colon without acute process at this time. Prostatic enlargement with prostatic calcifications. Chest X-Ray 12/03/18 08:55 IMPRESSION: Mild cardiomegaly. The lungs are clear. Code Visit Inpatient E&M: 30445 Init Hosp L3
[2018-12-03 13:00] LABS: Magnesium 1.5 mg/dL (1.6-2.6)
[2018-12-03 13:16] LABS: International Normalized Ratio 2.3; Prothrombin Time (Protime)PT. 25.1 SECONDS (11.7-14.9)
[2018-12-03] MEDS: Lactated Ringers 1,000 ML 100 ML IV (13:27)
[2018-12-03] MEDS: proMETHazine 25 MG/ML Syringe 12.5 MG IV (13:45)
[2018-12-03] MEDS: SACUBITRIL/VALSARTAN 49-51 MG TABLET 1 EACH PO ×2 (13:45→21:28)
[2018-12-03] MEDS: Metoprolol(XL)Succ 25 MG Tablet PO (13:45)
[2018-12-03 17:00] LABS: Bedside Glucose 105 mg/dL (70-110)
--- NOTE | 2018-12-03 19:24 | CON.PCM_ITS ---
- Consult Date of Consult: 12/03/18 - Reason for Consult Chief Complaint: abdominal pain History of Present Illness: 73 y/o WM with multiple medical problems presents with right upper quadrant abdominal pain noted for the past three months. Also notes diarrhea. Admitted to [facility], hospitalist service, with elevated WBC of 20k, elevated lactic acid of 2.8 Abdominal/pelvic CT scan - no acute process Last had EGD Feb 2017 - mild inflammation of duodenal bulb, gastritis, mild distal esophagitis Has alternating diarrhea and constipation. - mostly diarrhea - noted for months. Denies fevers. Denies nausea/emesis. Had previous cholecystectomy Past Medical History: Brain Tumor 02/26/2009 ? 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 Renal insufficiency ? SCIATICA 10/15/2005 Skin cancer 1988 non-melanoma. Unspecified Essential Hypertension 02/26/2009 Amiodarone pulmonary toxicity Past Surgical History: VT ablation coronary artery stent placement tonsillectomy neck biopsy pacemaker implant laparoscopic cholecystectomy Medications: cyclobenzaprine (FLEXERIL) 10 mg tablet Alpha Lipoic Acid 600 mg cap ondansetron (ZOFRAN) 4 mg tablet Loperamide HCl (IMODIUM A-D) 2 mg tab spironolactone (ALDACTONE) 25 mg tablet atorvastatin (LIPITOR) [address] (PROTONIX) 40 mg tablet warfarin (COUMADIN) 5 mg tablet?() furosemide (LASIX) 40 mg tablet warfarin (COUMADIN) 7.5 mg tablet sacubitril-valsartan (ENTRESTO) 49-51 mg tablet potassium chloride SR (MICRO-K) 10 mEq CR capsule ondansetron (ZOFRAN) 4 mg tablet metoprolol succinate ER (TOPROL XL) 25 mg 24 hr tablet COMPOUNDED PRESCRIPTION warfarin (COUMADIN) 2 mg tablet warfarin (COUMADIN) 3 mg tablet ACETAMINOPHEN (TYLENOL EXTRA STRENGTH ORAL) COMPOUNDED PRESCRIPTION COMPOUNDED PRESCRIPTION magnesium oxide (MAG-OX) 400 mg tablet aspirin, enteric coated (ECOTRIN LOW STRENGTH) 81 mg EC tablet Allergies: gemfibrozil, amiodarone, esopmeprazole Social history: TOB denies Review of Systems: General - denies fevers Cardiovascular has pacemaker implant Pulmonary needs oxygen supplementation Gastrointestinal as per HPI Neurological denies seizures Genitourinary has had kidney stones Hematological on coumadin Skin denies open nonhealing wounds Musculoskeletal no new muscle disorder Endocrine denies diabetes Psychological denies hallucinations Physical examination: Vital signs Temp 97.9F HR 65 BP 93/65 General WD/WN WM in no apparent distress, alert and oriented, not septic appearing Head Normocephalic. Eyes - EOM intact with sclera clear and no icterus noted. Wearing glasses Neck is supple with no jugular venous distention noted. Trachea is midline. Lungs wearing oxygen nasal cannula, normal breath sounds. No rales/ rhonchi/wheezing noted. No labored breathing noted, such as retractions. Heart normal heart sounds. No rubs/clicks/murmurs noted. Abdomen soft, protuberant, tender in right upper quadrant but no peritoneal signs. Normal bowel sounds, cannot determine if any masses due to body habitus Extremities no pitting edema noted. Genitourinary/Rectal deferred Skin normal skin integrity. Neurological no focal deficits. Psychological normal affect, patient is calm and appropriate Impression: right upper quadrant abdominal pain - acute on chronic leukocytosis of unknown etiology Discussion/plan: I have reviewed the above. On CT scan, patient does seem to have a large amount of solid stool in the hepatic flexure area, this may account for his abdominal pain, given his history of irritable bowel syndrome. No evidence of etiology of leukocytosis. At this point, no surgical intervention required. I do not believe endoscopy is required at this point, also. Will follow patient during his hospitalization
[2018-12-03 20:29] LABS: Absolute Neutrophil Count 7.2 X10^3/uL (2.0-7.7); Basophil# 0.04 X10^3/uL; Basophil% 0.4 % (0-1); Eosinophil# 0.21 X10^3/uL; Hematocrit 39.4 % (40-54); Hemoglobin 13.3 g/dL (13.0-16.5); Lymphocyte % 20.6 % (19-41); Mean Corp Hgb Conc 33.8 g/dL (32-36); Mean Corpuscular Hgb 31.7 pg (27.0-32.0); Mean Corpuscular Volume 93.8 fL (80-94); Mean Platelet Vol. 10.1 fl (6.2-12.0); Monocyte# 0.97 X10^3/uL; Monocyte% 9.1 % (0-10); NRBC Flagged by Analyzer 0 % (0-5); Neutrophil % 67.5 % (47-70); Platelet Count 169 K/mm3 (150-450); RBC Distribution Width CV 13.2 % (11.6-14.6); RBC Distribution Width SD 45.4 fl (35.1-43.9); White Blood Count 10.7 K/mm3 (4.4-11.0)
[2018-12-03 20:51] LABS: Lactic Acid 1.9 mmol/L (0.4-2.0)
[2018-12-03] MEDS: Aspirin 81 MG TAB.CHEW PO (21:28)
[2018-12-03] MEDS: Atorvastatin Calcium 40 MG Tablet PO (21:28)
[2018-12-04] VITALS (11 sets, daily range): BP systolic 87–96; BP diastolic 52–64; PULSE 60–82; RESP 14–18; TEMP 36.4–36.7; O2SAT 93–96
[2018-12-04 00:21] LABS: Bedside Glucose 124 mg/dL (70-110)
[2018-12-04 07:06] LABS: Bedside Glucose 131 mg/dL (70-110)
[2018-12-04 07:12] LABS: Absolute Lymphocyte Count 2.16 X10^3/uL (0.83-4.51); Absolute Neutrophil Count 3.6 X10^3/uL (2.0-7.7); Basophil# 0.02 X10^3/uL; Basophil% 0.3 % (0-1); Hematocrit 35.5 % (40-54); Hemoglobin 11.8 g/dL (13.0-16.5); Lymphocyte # 2.16 X10^3/ul (4.0); Lymphocyte % 32.8 % (19-41); Mean Corp Hgb Conc 33.2 g/dL (32-36); Mean Corpuscular Hgb 31.1 pg (27.0-32.0); Mean Corpuscular Volume 93.4 fL (80-94); Mean Platelet Vol. 10.7 fl (6.2-12.0); Monocyte# 0.57 X10^3/uL; Monocyte% 8.6 % (0-10); NRBC Flagged by Analyzer 0 % (0-5); Neutrophil # 3.62 X10^3/uL (2.7-7.7); Platelet Count 149 K/mm3 (150-450); RBC Distribution Width CV 13.4 % (11.6-14.6); RBC Distribution Width SD 45.7 fl (35.1-43.9); White Blood Count 6.6 K/mm3 (4.4-11.0)
[2018-12-04 07:47] LABS: Anion Gap 6 (5-15); BUN 12 mg/dL (7-18); BUN/Creat Ratio 11.5 RATIO (10-20); Calcium,Total 7.6 mg/dL (8.5-10.1); Chloride 111 mmol/L (98-107); Creatinine, Serum 1.04 mg/dL (0.70-1.30); EST Glomerular Filtration Rate 75 mL/min (>60); Est Glom Filt Rate - Afr Amer 90 mL/min (>60); Estimated Creatinine Clearance 65.15 ml/min; Glucose 145 mg/dL (74-106); Potassium 3.7 mmol/L (3.5-5.1); Sodium Level 143 mmol/L (136-145)
[2018-12-04] MEDS: Metoprolol(XL)Succ 25 MG Tablet PO (08:47)
[2018-12-04] MEDS: SACUBITRIL/VALSARTAN 49-51 MG TABLET 1 EACH PO ×2 (08:50→21:07)
[2018-12-04 11:51] LABS: Bedside Glucose 129 mg/dL (70-110)
--- NOTE | 2018-12-04 11:51 | PCM.PN.SRG ---
Patient Problems: Active and Suspected Problems (Last Updated 03/19/18 @ 11:56 by Izzy Demarco) Abdominal pain (Acute) Subjective: Patient states that his abdominal pain is slight improved, he motions with his fingers from the right upper quadrant to epigastric area and describes spastic sensation - I suspect that the pain may be colonic in nature - Physical Exam Vitals/I&O's: Vital Signs Temp Pulse Resp BP Pulse Ox 98.0 F 64 14 96/64 94 12/04/18 08:50 12/04/18 08:50 12/04/18 08:50 12/04/18 08:50 12/04/18 08:50 Oxygen Flow Rate (L/min) 2 Oxygen Delivery Method Room Air Weight: 102 kg Body Mass Index (BMI) 33.2 Intake and Output for Last 24 Hours 12/02/18 12/03/18 12/04/18 23:59 23:59 23:59 Intake Total 2748.33 / 2748.33 1431.67 / 1431.67 Output Total 200 / 200 Balance 2548.33 / 2548.33 1431.67 / 1431.67 General: Alert, Oriented x3 Oral: Moist Mucosa Neck: Supple Abdomen: Soft, Obese Extremities: - - no peritoneal signs Microbiology Past 72 Hours 12/03/18 17:25 Interface Orders C. difficile DNA Amplification - Final 12/03/18 17:25 Stool Stool Lactoferrin - Final 12/03/18 17:25 Stool Stool Occult Blood (MARK) - Final Occult Blood Positive Laboratory Results 12/03/18 05:35: Magnesium 1.5 L 12/03/18 05:35: PT 25.1 H, INR 2.3 12/03/18 11:48: Lactic Acid 2.2 H 12/03/18 16:55: POC Glucose 105 12/03/18 20:15: WBC 10.7, RBC 4.20 L, Hgb 13.3, Hct 39.4 L, MCV 93.8, MCH 31.7, MCHC 33.8, RDW Std Deviation 45.4 H, RDW Coeff of Vane 13.2, Plt Count 169, MPV 10.1, Immature Gran % (Auto) 0.400, Neut % (Auto) 67.5, Lymph % (Auto) 20.6, [place] % (Auto) 9.1, Eos % (Auto) 2.0, Baso % (Auto) 0.4, Absolute Neuts (auto) 7.2, Absolute Lymphs (auto) 2.20, Nucleated RBC % 0 12/03/18 20:15: Lactic Acid 1.9 12/04/18 00:14: POC Glucose 124 H 12/04/18 06:35: WBC 6.6, RBC 3.80 L, Hgb 11.8 L, Hct 35.5 L, MCV 93.4, MCH 31.1, MCHC 33.2, RDW Std Deviation 45.7 H, RDW Coeff of Vane 13.4, Plt Count 149 L, MPV 10.7, Immature Gran % (Auto) 0.300, Neut % (Auto) 55.0, Lymph % (Auto) 32.8, [place] % (Auto) 8.6, Eos % (Auto) 3.0, Baso % (Auto) 0.3, Absolute Neuts (auto) 3.6, Absolute Lymphs (auto) 2.16, Nucleated RBC % 0 12/04/18 06:35: Sodium 143, Potassium 3.7, Chloride 111 H, Carbon Dioxide 26.0, Anion Gap 6, BUN 12, Creatinine 1.04, Estim Creat Clear Calc 65.15, Est GFR (MDRD) Af Amer 90, Est GFR (MDRD) Non-Af 75, BUN/Creatinine Ratio 11.5, Glucose 145 H, Calcium 7.6 L 12/04/18 06:35: PT 31.0 H, INR 3.0 12/04/18 07:01: POC Glucose 131 H 12/04/18 11:46: POC Glucose Pending Current Medications Acetaminophen (Tylenol) 650 mg PO Q6H PRN PRN PRN Reason: Pain Score 1-3/Temp > 100.7 F Aspirin (Aspirin, Baby) 81 mg PO QHS [facility] Last Admin: 12/03/18 21:28 Dose: 81 mg Documented by: Atorvastatin Calcium (Lipitor) 40 mg PO QHS [facility] Last Admin: 12/03/18 21:28 Dose: 40 mg Documented by: Dextrose (D50w Syringe) 0 gm IV X1 PRN; Protocol PRN Reason: Hypoglycemia Glucagon () 1 mg IM .X1 PRN PRN Reason: Hypoglycemia Hydromorphone HCl (Dilaudid Inj) 0.5 mg IV Q4H PRN PRN PRN Reason: Pain Score 6-10/10 Pantoprazole Sodium 40 mg/ (Sodium Chloride) 110 mls @ 330 mls/hr IV Q12 [facility] Last Admin: 12/04/18 08:50 Dose: 330 mls/hr Documented by: Sodium Chloride () 500 mls @ 15 mls/hr IV PRN PRN PRN Reason: Blood Transfusion Sodium Chloride () 250 mls @ 15 mls/hr IV .[id number] PRN PRN Reason: Saline Flush Magnesium Oxide (Mag-Ox 400) 400 mg PO [facility] Metoprolol Succinate (Toprol Xl (Beta Angela)) 25 mg PO DAILY [facility] Last Admin: 12/04/18 08:47 Dose: 25 mg Documented by: Nitroglycerin (Nitrostat) 0.4 mg SUBLINGUAL Q5M PRN PRN Reason: CARDIAC/CHEST PAIN Ondansetron HCl (Zofran) 4 mg IV Q8H PRN PRN PRN Reason: SEVERE N/V Oxycodone HCl (Oxyir) 5 mg PO Q4H PRN PRN PRN Reason: Pain Score 4-5/10 Potassium Chloride (K-Dur) 10 meq PO BID [facility] Last Admin: 12/04/18 08:50 Dose: 10 meq Documented by: Prochlorperazine Edisylate (Compazine Iv) 5 mg IV Q4H PRN PRN PRN Reason: Breakthrough Nausea/Vomiting Promethazine HCl (Phenergan) 12.5 mg IV Q6H PRN PRN PRN Reason: Breakthrough Nausea/Vomiting Last Admin: 12/03/18 13:45 Dose: 12.5 mg Documented by: Sacubitril/Valsartan (Entresto 49 Mg-51 Mg Tablet) 1 each PO BID [facility] Last Admin: 12/04/18 08:50 Dose: 1 each Documented by: Sodium Chloride () 10 - 40 ml IV UD PRN PRN Reason: SALINE FLUSH Warfarin Sodium (Coumadin (Pbkc)) 5 mg PO MoWeFr@1700 SABINA; Protocol Last Admin: 12/03/18 16:55 Dose: 5 mg Documented by: Warfarin Sodium (Coumadin (Pbkc)) 7.5 mg PO SuTuThSa@1700 SABINA; Protocol Medical Necessity - Tobacco Use Smoking Status: Former smoker Assessment/Plan All Active Problems (Last Updated 03/19/18 @ 11:56 by Izzy Demarco) Abdominal pain (Acute) History of cardiac radiofrequency ablation (Resolved) AICD discharge (Resolved) Acute renal failure (Resolved) Dehydration (Resolved) Nausea & vomiting (Resolved) Smoking addiction (Resolved) Impression: persistent diarrhea right upper quadrant abdominal pain Discussion/Plan: Patient states that he has never had a colonoscopy before. He has not wanted to have one, because of concern of the colon cleansing preparation causing fluid/electrolyte problems with his heart. Since he has been on a clear liquid diet for the past two days and he has diarrhea, his colon may be cleared enough for visualization (findings small polyps would probably not be feasible, but also not necessary at this point) Simultaneously, an upper endoscopy can also be done. The patient is amenable to the above, he requests that Dr. Jorge be informed to determine if he deems the patient sufficiently medically stable for this I can schedule upper and lower endoscopy on Thursday or Thursday
--- NOTE | 2018-12-04 12:15 | CASEMGMT ---
RN CM Face to Face with patient for initial transition planning/care coordination assessment. RN CM introduced self and role at [facility]. Patient lying in bed, alert and oriented. Patient willing to participate in assessment and is able to answer all questions appropriately. Care providers, pharmacy, and demographics verified. Patient wishes to discharge home, denies need for home health at this time. Patient states he has no further needs or concerns at this time. CM to follow for discharge planning needs that may arise. PCP: Matty Specialists: Ania, digital media designer; Rambo spray gunner; Ayaka YUN Preferred Pharmacy: [facility] Insurance: [employer] Prescription Benefit:yes Living Will/HPOA: yes Britany Wade LNOK: Living Arrangements: Patient lives with in 2 story home, bed and bath on first floor. Patient independent at home. Transportation: Friend or hospital van DME/HHC: Patient has shower chair, cane, walker, grab bars, wheelchair, oxygen through [employer] [facility], and INR ania. Disposition Plan: Patient to discharge home with family support and follow-up plans in place. Keri SANCHEZ, RN, CM
[2018-12-04 16:36] LABS: Bedside Glucose 89 mg/dL (70-110)
--- NOTE | 2018-12-04 18:52 | PN_ITS ---
Patient Problems: Active and Suspected Problems (Last Updated 03/19/18 @ 11:56 by Izzy Demarco) Abdominal pain (Acute) Subjective: Patient was seen and examined today, I talked briefly with general surgery about his care today, general surgery is planning on performing an EGD and a colonoscopy on 12/06/2018. Patient's enteric stool panel was negative for pathogens, his C. difficile was negative. Patient's stool was positive for occult blood. Stool lactoferrin was present. - Physical Exam Vitals/I&O's: Vital Signs Temp Pulse Resp BP Pulse Ox 97.7 F L 60 16 92/52 L 93 12/04/18 14:50 12/04/18 15:00 12/04/18 14:50 12/04/18 14:50 12/04/18 14:50 Oxygen Flow Rate (L/min) 2 Oxygen Delivery Method Room Air Weight: 102 kg Body Mass Index (BMI) 33.2 Intake and Output for Last 24 Hours 12/02/18 12/03/18 12/04/18 23:59 23:59 23:59 Intake Total 2748.33 / 2748.33 3581.67 / 3581.67 Output Total 200 / 200 Balance 2548.33 / 2548.33 3581.67 / 3581.67 General: Alert, Oriented x3, Cooperative, No apparent distress, Well developed HEENT: Atraumatic, PERRLA, EOMI, Normocephalic Oral: Moist Mucosa Neck: Supple, Trachea Midline, Thyroid Normal Size and Texture Lungs: Clear to auscultation, Normal air movement, No rhonchi, No wheeze, No rales Cardiovascular: Regular rate, Regular Rhythm, Normal S1, Normal S2, No murmurs Abdomen: Bowel Sounds Present, Soft, Non Tender, Non-Distended Extremities: No clubbing, No cyanosis, No edema, Capillary Refill Less than 3 Seconds Skin: No rashes, No breakdown Musculoskeletal: No Tenderness to Palpation of Joints or Extremities Neurological: Cranial nerves II-XII grossly intact, Neuro grossly intact, Muscle tone normal, Sensory exam intact to light touch and pain Psych/Mental Status: Normal Affect, Appropriate, Alert and oriented to time, place, person, mood and affect Microbiology Past 72 Hours 12/03/18 17:25 Stool Enteric Bacteriology - Final 12/03/18 17:25 Interface Orders C. difficile DNA Amplification - Final 12/03/18 17:25 Stool Stool Lactoferrin - Final 12/03/18 17:25 Stool Stool Occult Blood (MARK) - Final Occult Blood Positive Laboratory Results 12/03/18 20:15: WBC 10.7, RBC 4.20 L, Hgb 13.3, Hct 39.4 L, MCV 93.8, MCH 31.7, MCHC 33.8, RDW Std Deviation 45.4 H, RDW Coeff of Vane 13.2, Plt Count 169, MPV 10.1, Immature Gran % (Auto) 0.400, Neut % (Auto) 67.5, Lymph % (Auto) 20.6, [place] % (Auto) 9.1, Eos % (Auto) 2.0, Baso % (Auto) 0.4, Absolute Neuts (auto) 7.2, Absolute Lymphs (auto) 2.20, Nucleated RBC % 0 12/03/18 20:15: Lactic Acid 1.9 12/04/18 00:14: POC Glucose 124 H 12/04/18 06:35: WBC 6.6, RBC 3.80 L, Hgb 11.8 L, Hct 35.5 L, MCV 93.4, MCH 31.1, MCHC 33.2, RDW Std Deviation 45.7 H, RDW Coeff of Vane 13.4, Plt Count 149 L, MPV 10.7, Immature Gran % (Auto) 0.300, Neut % (Auto) 55.0, Lymph % (Auto) 32.8, [place] % (Auto) 8.6, Eos % (Auto) 3.0, Baso % (Auto) 0.3, Absolute Neuts (auto) 3.6, Absolute Lymphs (auto) 2.16, Nucleated RBC % 0 12/04/18 06:35: Sodium 143, Potassium 3.7, Chloride 111 H, Carbon Dioxide 26.0, Anion Gap 6, BUN 12, Creatinine 1.04, Estim Creat Clear Calc 65.15, Est GFR (MDRD) Af Amer 90, Est GFR (MDRD) Non-Af 75, BUN/Creatinine Ratio 11.5, Glucose 145 H, Calcium 7.6 L 12/04/18 06:35: PT 31.0 H, INR 3.0 12/04/18 07:01: POC Glucose 131 H 12/04/18 11:46: POC Glucose 129 H 12/04/18 16:28: POC Glucose 89 Current Medications Acetaminophen (Tylenol) 650 mg PO Q6H PRN PRN PRN Reason: Pain Score 1-3/Temp > 100.7 F Aspirin (Aspirin, Baby) 81 mg PO QHS [facility] Last Admin: 12/03/18 21:28 Dose: 81 mg Documented by: Atorvastatin Calcium (Lipitor) 40 mg PO QHS [facility] Last Admin: 12/03/18 21:28 Dose: 40 mg Documented by: Dextrose (D50w Syringe) 0 gm IV X1 PRN; Protocol PRN Reason: Hypoglycemia Glucagon () 1 mg IM .X1 PRN PRN Reason: Hypoglycemia Hydromorphone HCl (Dilaudid Inj) 0.5 mg IV Q4H PRN PRN PRN Reason: Pain Score 6-10/10 Pantoprazole Sodium 40 mg/ (Sodium Chloride) 110 mls @ 330 mls/hr IV Q12 [facility] Last Infusion: 12/04/18 09:15 Dose: Infused Documented by: Sodium Chloride () 500 mls @ 15 mls/hr IV PRN PRN PRN Reason: Blood Transfusion Sodium Chloride () 250 mls @ 15 mls/hr IV .[id number] PRN PRN Reason: Saline Flush Magnesium Oxide (Mag-Ox 400) 400 mg PO [facility] Metoprolol Succinate (Toprol Xl (Beta Angela)) 25 mg PO DAILY [facility] Last Admin: 12/04/18 08:47 Dose: 25 mg Documented by: Nitroglycerin (Nitrostat) 0.4 mg SUBLINGUAL Q5M PRN PRN Reason: CARDIAC/CHEST PAIN Ondansetron HCl (Zofran) 4 mg IV Q8H PRN PRN PRN Reason: SEVERE N/V Oxycodone HCl (Oxyir) 5 mg PO Q4H PRN PRN PRN Reason: Pain Score 4-5/10 Potassium Chloride (K-Dur) 10 meq PO BID [facility] Last Admin: 12/04/18 08:50 Dose: 10 meq Documented by: Prochlorperazine Edisylate (Compazine Iv) 5 mg IV Q4H PRN PRN PRN Reason: Breakthrough Nausea/Vomiting Promethazine HCl (Phenergan) 12.5 mg IV Q6H PRN PRN PRN Reason: Breakthrough Nausea/Vomiting Last Admin: 12/03/18 13:45 Dose: 12.5 mg Documented by: Sacubitril/Valsartan (Entresto 49 Mg-51 Mg Tablet) 1 each PO BID [facility] Last Admin: 12/04/18 08:50 Dose: 1 each Documented by: Sodium Chloride () 10 - 40 ml IV UD PRN PRN Reason: SALINE FLUSH Warfarin Sodium (Coumadin (Pbkc)) 5 mg PO MoWeFr@1700 SABINA; Protocol Last Admin: 12/03/18 16:55 Dose: 5 mg Documented by: Warfarin Sodium (Coumadin (Pbkc)) 7.5 mg PO SuTuThSa@1700 SABINA; Protocol Last Admin: 12/04/18 16:35 Dose: 7.5 mg Documented by: Medical Necessity - Tobacco Use Smoking Status: Former smoker Assessment/Plan All Active Problems (Last Updated 03/19/18 @ 11:56 by Izzy Demarco) Abdominal pain (Acute) History of cardiac radiofrequency ablation (Resolved) AICD discharge (Resolved) Acute renal failure (Resolved) Dehydration (Resolved) Nausea & vomiting (Resolved) Smoking addiction (Resolved) #1 generalized abdominal pain with lactoferrin positive stool-etiology unknown at this time, probable viral gastroenteritis, patient will undergo an EGD and colonoscopy tomorrow #2 ischemic cardiomyopathy-I will talk to cardiology today concerning the patient's stability to undergo endoscopy, patient is reluctant to undergo endoscopy without talking with cardiology, I feel that the patient is stable at this time to undergo endoscopy. #3 coronary artery disease #4 coagulopathy secondary to Coumadin usage-patient's Coumadin will be held at this time, INR will be rechecked #5 hyperlipidemia #6 essential hypertension #7 chronic systolic congestive heart failure Code Visit Inpatient E&M: 48073 Subs Hosp L2
[2018-12-04] MEDS: Aspirin 81 MG TAB.CHEW PO (21:07)
[2018-12-04] MEDS: Atorvastatin Calcium 40 MG Tablet PO (21:07)
[2018-12-04] MEDS: 0.9% Saline Lock 10 ML Syringe IV (21:16)
[2018-12-04 22:16] LABS: Bedside Glucose 98 mg/dL (70-110)
[2018-12-05] VITALS (11 sets, daily range): BP systolic 93–119; BP diastolic 49–67; PULSE 60–74; RESP 14–16; TEMP 36.4–36.6; O2SAT 92–97; BMI 33.2
--- NOTE | 2018-12-05 06:21 | PN.SURG_ITS ---
Patient Problems: Active and Suspected Problems (Last Updated 03/19/18 @ 11:56 by Izzy Demarco) Abdominal pain (Acute) Subjective: Patient states that he has less pain, ready for upper and lower endoscopy on Thursday - Physical Exam Vitals/I&O's: Vital Signs Temp Pulse Resp BP Pulse Ox 97.6 F L 62 16 93/49 L 92 12/05/18 02:50 12/05/18 02:59 12/05/18 02:50 12/05/18 02:50 12/05/18 02:50 Oxygen Flow Rate (L/min) 2 Oxygen Delivery Method Room Air Weight: 102 kg Body Mass Index (BMI) 33.2 Intake and Output for Last 24 Hours 12/03/18 12/04/18 12/05/18 23:59 23:59 23:59 Intake Total 2748.33 / 2748.33 4173.42 / 4173.42 Output Total 200 / 200 Balance 2548.33 / 2548.33 4173.42 / 4173.42 General: Alert, Oriented x3 Oral: Moist Mucosa Neck: Supple Lungs: Normal air movement Abdomen: Bowel Sounds Present, Soft, Obese Microbiology Past 72 Hours 12/03/18 17:25 Stool Enteric Bacteriology - Final 12/03/18 17:25 Interface Orders C. difficile DNA Amplification - Final 12/03/18 17:25 Stool Stool Lactoferrin - Final 12/03/18 17:25 Stool Stool Occult Blood (MARK) - Final Occult Blood Positive Laboratory Results 12/04/18 06:35: WBC 6.6, RBC 3.80 L, Hgb 11.8 L, Hct 35.5 L, MCV 93.4, MCH 31.1, MCHC 33.2, RDW Std Deviation 45.7 H, RDW Coeff of Vane 13.4, Plt Count 149 L, MPV 10.7, Immature Gran % (Auto) 0.300, Neut % (Auto) 55.0, Lymph % (Auto) 32.8, [place] % (Auto) 8.6, Eos % (Auto) 3.0, Baso % (Auto) 0.3, Absolute Neuts (auto) 3.6, Absolute Lymphs (auto) 2.16, Nucleated RBC % 0 12/04/18 06:35: Sodium 143, Potassium 3.7, Chloride 111 H, Carbon Dioxide 26.0, Anion Gap 6, BUN 12, Creatinine 1.04, Estim Creat Clear Calc 65.15, Est GFR (MDRD) Af Amer 90, Est GFR (MDRD) Non-Af 75, BUN/Creatinine Ratio 11.5, Glucose 145 H, Calcium 7.6 L 12/04/18 06:35: PT 31.0 H, INR 3.0 12/04/18 07:01: POC Glucose 131 H 12/04/18 11:46: POC Glucose 129 H 12/04/18 16:28: POC Glucose 89 12/04/18 22:06: POC Glucose 98 Current Medications Acetaminophen (Tylenol) 650 mg PO Q6H PRN PRN PRN Reason: Pain Score 1-3/Temp > 100.7 F Aspirin (Aspirin, Baby) 81 mg PO QHS [facility] Last Admin: 12/04/18 21:07 Dose: 81 mg Documented by: Atorvastatin Calcium (Lipitor) 40 mg PO QHS [facility] Last Admin: 12/04/18 21:07 Dose: 40 mg Documented by: Dextrose (D50w Syringe) 0 gm IV X1 PRN; Protocol PRN Reason: Hypoglycemia Glucagon () 1 mg IM .X1 PRN PRN Reason: Hypoglycemia Hydromorphone HCl (Dilaudid Inj) 0.5 mg IV Q4H PRN PRN PRN Reason: Pain Score 6-10/10 Pantoprazole Sodium 40 mg/ (Sodium Chloride) 110 mls @ 330 mls/hr IV Q12 [facility] Last Infusion: 12/04/18 21:40 Dose: Infused Documented by: Sodium Chloride () 500 mls @ 15 mls/hr IV PRN PRN PRN Reason: Blood Transfusion Sodium Chloride () 250 mls @ 15 mls/hr IV .[id number] PRN PRN Reason: Saline Flush Last Infusion: 12/04/18 21:20 Dose: 0 mls/hr Documented by: Magnesium Oxide (Mag-Ox 400) 400 mg PO SUTH [facility] Metoprolol Succinate (Toprol Xl (Beta Angela)) 25 mg PO DAILY [facility] Last Admin: 12/04/18 08:47 Dose: 25 mg Documented by: Nitroglycerin (Nitrostat) 0.4 mg SUBLINGUAL Q5M PRN PRN Reason: CARDIAC/CHEST PAIN Ondansetron HCl (Zofran) 4 mg IV Q8H PRN PRN PRN Reason: SEVERE N/V Oxycodone HCl (Oxyir) 5 mg PO Q4H PRN PRN PRN Reason: Pain Score 4-5/10 Potassium Chloride (K-Dur) 10 meq PO BID [facility] Last Admin: 12/04/18 21:07 Dose: 10 meq Documented by: Prochlorperazine Edisylate (Compazine Iv) 5 mg IV Q4H PRN PRN PRN Reason: Breakthrough Nausea/Vomiting Promethazine HCl (Phenergan) 12.5 mg IV Q6H PRN PRN PRN Reason: Breakthrough Nausea/Vomiting Last Admin: 12/03/18 13:45 Dose: 12.5 mg Documented by: Sacubitril/Valsartan (Entresto 49 Mg-51 Mg Tablet) 1 each PO BID [facility] Last Admin: 12/04/18 21:07 Dose: 1 each Documented by: Sodium Chloride () 10 - 40 ml IV UD PRN PRN Reason: SALINE FLUSH Last Admin: 12/04/18 21:16 Dose: 10 ml Documented by: Medical Necessity - Tobacco Use Smoking Status: Former smoker Assessment/Plan All Active Problems (Last Updated 03/19/18 @ 11:56 by Izzy Demarco) Abdominal pain (Acute) History of cardiac radiofrequency ablation (Resolved) AICD discharge (Resolved) Acute renal failure (Resolved) Dehydration (Resolved) Nausea & vomiting (Resolved) Smoking addiction (Resolved) Impression: persistent diarrhea right upper quadrant abdominal pain Discussion/Plan: Patient states that he has never had a colonoscopy before. He has not wanted to have one, because of concern of the colon cleansing preparation causing fluid/electrolyte problems with his heart. Since he has been on a clear liquid diet for the past two days and he has diarrhea, his colon may be cleared enough for visualization (findings small polyps would probably not be feasible, but also not necessary at this point) Simultaneously, an upper endoscopy can also be done. The patient is amenable to the above, he requests that Dr. Jorge be informed to determine if he deems the patient sufficiently medically stable for this I can schedule upper and lower endoscopy on Thursday or Thursday. pending evaluation by Dr. Jorge
[2018-12-05 07:25] LABS: Prothrombin Time (Protime)PT. 31.2 SECONDS (11.7-14.9)
[2018-12-05] MEDS: Metoprolol(XL)Succ 25 MG Tablet PO (09:24)
[2018-12-05] MEDS: SACUBITRIL/VALSARTAN 49-51 MG TABLET 1 EACH PO ×2 (09:24→21:07)
[2018-12-05] MEDS: Magnesium Oxide 400 MG Tablet PO (09:24)
--- NOTE | 2018-12-05 09:35 | CON.PCM_ITS ---
Reason for Consult Date of Consultation: 12/05/18 Reason for Consultation: Preop cardiac evaluation History of Present Illness: The patient is a 73 year old M here for preoperative cardiac evaluation. He is scheduled to undergo an endoscopy as well as colonoscopy. He has a history of underlying CAD, NJ, PCI with drug-eluting stent to mid LAD on 02/21/2013, ischemic mediated cardiomyopathy with an estimated ejection fraction of 25%, chronic systolic CHF, atrial fibrillation, ICD placement on 06/21/2013, superimposed upon a history of CVA. He states he has had is electrophysiology evaluation care follow through [facility] with radiofrequency ablation in January 2016 and May 2016.. He denies chest, jaw, or neck discomfort. Prior to NJ he noted severe chest pain, SOB, left arm pain, and nausea. His exercise tolerance is stable. He uses a walker to help with balance issues. He denies symptoms of palpitations, lightheadedness, dizziness, near syncope, or syncopal episodes. He states with warmer weather he has noted SOB. He states continual SOB on exertion such as going up steps. He denies edema or claudication issues. He continues with orthopnea. He denies PND, fever, chills, blood in urine, or blood in stool. He states relatively low energy level. He is here with some GI problems and he seeks cardiology input prior to colonoscopy Past Medical History Allergies/Adverse Reactions: Allergies gemfibrozil Allergy (Intermediate, Verified 12/03/18 05:38) upset stomach; constipation amiodarone Adverse Reaction (Severe, Verified 12/03/18 05:38) Pulmonary fibrosis esomeprazole magnesium [From Nexium] Adverse Reaction (Verified 12/03/18 05:38) Diarrhea Home Medications: Ambulatory Orders Medication Instructions Recorded Pantoprazole Sodium [Protonix] 40 mg PO BID 06/11/13 Atorvastatin Calcium [Lipitor] 40 mg PO QHS 05/15/16 Magnesium Oxide [Mag-Ox 400] 400 mg PO MOFR 05/15/16 Sacubitril/Valsartan 49-51 mg 1 tab PO BID 05/15/16 [Entresto 49 mg-51 mg Tablet] Acetaminophen [Tylenol] 1,000 mg PO DAILY PRN 08/22/17 Aspirin [Aspirin, Baby] 81 mg PO QHS 08/22/17 Furosemide [Lasix] 40 mg PO BID 08/22/17 Warfarin Sodium 5 mg PO MOWEFR 08/22/17 Spironolactone 25 mg PO BID 08/23/17 Ondansetron [Zofran Odt] 4 mg PO Q8H PRN PRN #7 tab 02/12/18 loperamide 2 mg tablet 2 mg PO Q1-4H PRN 03/09/18 warfarin 7.5 mg tablet 7.5 mg PO SUTUTHSA tab 03/09/18 metoprolol succinate ER 25 mg 25 mg PO DAILY #90 tab 09/20/18 tablet,extended release 24 hr potassium chloride ER 10 mEq 10 meq PO BID #180 tab 09/28/18 tablet,extended release(part/cryst) Past Medical History (Chronic Problems): Chronic Problems (Last Updated 03/19/18 @ 11:56 by Izzy Demarco) USP (current) use of anticoagulants (Chronic) Presence of stent in coronary artery (Chronic ~02/21/13) PCI/BROOKE of the mid LAD 02/21/13 Presence of implantable cardioverter-defibrillator (ICD) (Chronic ~06/21/13) [employer] 2411-[address]Q [address] - Implant 06/21/13 Mixed hyperlipidemia (Chronic) Chronic systolic (congestive) heart failure (Chronic) Ischemic cardiomyopathy (Chronic) Atherosclerotic heart disease of [place] coronary artery without angina pectoris (Chronic) Essential hypertension (Chronic) PAF (paroxysmal atrial fibrillation) (Chronic) Sustained VT (ventricular tachycardia) (Chronic) Surgical History: cholecystectomy, pacemaker implantation, - - AICD pacemaker Psychiatric History: No pertinent psych hx - *Family History Maternal Family History: Family History (Last Reviewed 03/11/18 @ 14:30 by Brina Doan) Mother CVA (cerebral vascular accident) Grandfather Heart disease Father Cancer Sister Cancer History Items: No pertinent history Smoking Status: Former smoker Alcohol: None Drugs: None Review of Systems - Review of Systems General: Denies: Fever, Night Sweats, Fatigue HEENT: Denies: Vision Change Cardiovascular: Denies: Chest Discomfort, Shortness of Breath, Orthopnea, PND, Peripheral Edema, Palpitations, Lightheadedness, Dizziness, Near Syncope, Syncope Respiratory: Denies: Cough, Sputum Production, Hemoptysis Gastrointestinal: Denies: Hematemesis, Hematochezia, Melena Genitourinary: Denies: Dysuria, Hematuria Muscoloskeletal: Denies: Myalgias Skin: Denies: Rash Neurological: Denies: Dizziness Psychiatric: Denies: Anxiety Endocrine: Denies: Unexplained Weight Loss Subjectve: Patient seen and evaluated Objective: Vital Signs Temp Pulse Resp BP Pulse Ox 97.6 F L 72 16 108/65 97 12/05/18 08:50 12/05/18 09:24 12/05/18 08:50 12/05/18 08:50 12/05/18 08:50 Oxygen Flow Rate (L/min) 2 Oxygen Delivery Method Room Air Weight: 224 lb 13.944 oz Body Mass Index (BMI) 33.2 Intake and Output for Last 24 Hours 12/03/18 12/04/18 12/05/18 23:59 23:59 23:59 Intake Total 2748.33 / 2748.33 4173.42 / 4173.42 240 / 240 Output Total 200 / 200 Balance 2548.33 / 2548.33 4173.42 / 4173.42 240 / 240 General: Awake, Alert, Oriented x 3 HEENT: PERRL, EOMI, Sclera Non Icteric Neck: Supple, Good ROM, No Lymph Node Enlargement Lungs: Clear to auscultation Cardiovascular: Regular Rhythm, Normal S1, Normal S2, No Murmurs, No Rubs, No Gallops Vascular: No Carotid Bruits, Normal Femoral Pulses, Normal Radial Pulses, Normal Dorsalis Pedal Pulse, Normal Posterior Tibial Pulses Abdomen: Bowel Sounds Present, Soft, Non Tender, No HSM, No Organomegaly Extremities: No Cyanosis, No Clubbing, No edema Musculoskeletal: No Erythema Skin: No Rashes Lymphatic: No Lymph Node Enlargement Neurological: No Focal Motor or Sensory Deficit Psych/Mental Status: Appropriate 12/05/18 06:45: PT 31.2 H, INR 3.0 Rhythm: EKG:NSR and rate of 72 bpm Assessment/Plan 1. Atherosclerosis of [place] coronary artery of [place] heart without angina pectoris I25.10 His last stress test from August 2017 was negative for myocardial ischemia. Evidence of lateral apical infarct and inferior infarct and apex. Patient denies any chest pain, arm pain, jaw pain, neck pain, new or worsening shortness of breath, or fatigue suggestive of angina at this time. We will continue to monitor. We will not make any medication regimen changes and will continue risk factor modification. 2. Presence of stent in coronary artery Z95.5 PCI/BROOKE of the mid LAD 02/21/13 He will continue the risk factor and lifestyle modification. We will continue to monitor. 3. Ischemic cardiomyopathy I25.5 His most recent echocardiogram from August 2017 showed ejection fraction 25%. Has segmental wall motion abnormality. He does acknowledge chronic shortness of breath and oxygen therapy. He appears to be without acute on chronic systolic congestive heart failure symptoms. He will continue with current beta-margaret, Entresto, and diuretics. We will continue to monitor closely. 4. Chronic systolic (congestive) heart failure I50.22 As noted above he appears to be without acute symptoms. He will continue current medical therapy and will continue to monitor. 5. History of cardiac radiofrequency ablation Z98.890 He appears to be maintaining regular rhythm. His heart rate is well controlled. His most recent echocardiogram from August 2017 showed normal biatrial size. His most recent pacemaker evaluation from July 2018 showed 3 AT/AF episodes comprising less than 1% of total time. He will continue with oral anticoagulation. We will continue to monitor. 6. Presence of implantable cardioverter-defibrillator (ICD) Z95.810 [employer] [id number] - Implant 06/21/13 Plan He is status post ICD placement for reduced ejection fraction/ischemic cardia myopathy. Patient's dual-chamber ICD appears to be functioning appropriately. We will continue to monitor this with routine/scheduled follow-ups. 7. PAF (paroxysmal atrial fibrillation) I48.0 Plan As noted above his most recent pacemaker evaluation from July 2018 showed 3 AT/AF episodes comprising less than 1% of total time. He will continue with current beta-margaret and Coumadin therapy. We will continue to monitor. He will continue to maintain INR goal of 2?3. 8. Sustained VT (ventricular tachycardia) I47.2 Plan His most recent pacemaker evaluation showed stored e-grams for VT episode as supraventricular tachycardia at 160 bpm for approximately 36 seconds and stored e-grams for SVT and MS show atrial flutter and atrial fibrillation with appropriate MS. He denies any ICD discharge since last office visit. He will continue with current beta-margaret. We will continue to monitor. He has previously been on amiodarone therapy that was discontinued due to worsening lung function. 9. Essential hypertension I10 Plan Patient's blood pressure is well-controlled. We will continue to monitor. We will not make any medication regimen changes. 10. Mixed hyperlipidemia E78.2 Plan Lipid panel from August 2017 showed cholesterol: 117, HDL: 37, LDL: 34, and triglycerides: 228. He will continue current statin medication. From the CV standpoint he appears to be stable with no contraindications to colonoscopy or endoscopy
[2018-12-05 11:50] LABS: Bedside Glucose 115 mg/dL (70-110)
--- NOTE | 2018-12-05 14:26 | PCM.PROGNOTE ---
Patient Problems: Active and Suspected Problems (Last Updated 03/19/18 @ 11:56 by Izzy Demarco) Abdominal pain (Acute) Subjective: Patient was seen and examined today, he still continues to have frequent bowel movements, I had cardiology see him today due to the patient's concerns about undergoing endoscopy on account of his heart disease-cardiology felt that he was stable to undergo endoscopy at this time. I talked with general surgery, they would prefer that the patient receive some vitamin K due to his elevated INR from his chronic Coumadin usage, patient's Coumadin was stopped last night in preparation for his endoscopy tomorrow. - Physical Exam Vitals/I&O's: Vital Signs Temp Pulse Resp BP Pulse Ox 97.6 F L 72 16 108/65 97 12/05/18 08:50 12/05/18 09:24 12/05/18 08:50 12/05/18 08:50 12/05/18 08:50 Oxygen Flow Rate (L/min) 2 Oxygen Delivery Method Room Air Weight: 102 kg Body Mass Index (BMI) 33.2 Intake and Output for Last 24 Hours 12/03/18 12/04/18 12/05/18 23:59 23:59 23:59 Intake Total 2748.33 / 2748.33 4173.42 / 4173.42 1240.5 / 1240.5 Output Total 200 / 200 Balance 2548.33 / 2548.33 4173.42 / 4173.42 1240.5 / 1240.5 General: Alert, Oriented x3, Cooperative, No apparent distress, Well developed, Well nourished HEENT: Atraumatic, PERRLA, EOMI, Normocephalic Oral: Moist Mucosa Neck: Supple, Trachea Midline, Thyroid Normal Size and Texture Lungs: Clear to auscultation, Normal air movement, No rhonchi, No wheeze, No rales Cardiovascular: Regular rate, Regular Rhythm, Normal S1, Normal S2, No murmurs, PMI Normal, No rub noted, No Gallop Abdomen: Bowel Sounds Present, Soft, Non Tender, Non-Distended Extremities: No clubbing, No cyanosis, Capillary Refill Less than 3 Seconds Skin: No rashes, No breakdown Musculoskeletal: No Tenderness to Palpation of Joints or Extremities Neurological: Cranial nerves II-XII grossly intact, Neuro grossly intact, Sensory exam intact to light touch and pain, Coordination normal Psych/Mental Status: Normal Affect, Appropriate, Alert and oriented to time, place, person, mood and affect Microbiology Past 72 Hours 12/03/18 11:14 Blood Culture (Wb) - Anticubital Left Blood Culture - Preliminary No growth in 48 hours. 12/03/18 11:19 Blood Culture (Wb) - Left Hand Blood Culture - Preliminary No growth in 48 hours. 12/03/18 Unknown Urine, Clean Catch Urine Culture - Final Culture exhibits no growth. 12/03/18 17:25 Stool Enteric Bacteriology - Final 12/03/18 17:25 Interface Orders C. difficile DNA Amplification - Final 12/03/18 17:25 Stool Stool Lactoferrin - Final 12/03/18 17:25 Stool Stool Occult Blood (MARK) - Final Occult Blood Positive Laboratory Results 12/04/18 16:28: POC Glucose 89 12/04/18 22:06: POC Glucose 98 12/05/18 06:45: PT 31.2 H, INR 3.0 12/05/18 11:43: POC Glucose 115 H Current Medications Acetaminophen (Tylenol) 650 mg PO Q6H PRN PRN PRN Reason: Pain Score 1-3/Temp > 100.7 F Aspirin (Aspirin, Baby) 81 mg PO QHS [facility] Last Admin: 12/04/18 21:07 Dose: 81 mg Documented by: Atorvastatin Calcium (Lipitor) 40 mg PO QHS [facility] Last Admin: 12/04/18 21:07 Dose: 40 mg Documented by: Dextrose (D50w Syringe) 0 gm IV X1 PRN; Protocol PRN Reason: Hypoglycemia Glucagon () 1 mg IM .X1 PRN PRN Reason: Hypoglycemia Hydromorphone HCl (Dilaudid Inj) 0.5 mg IV Q4H PRN PRN PRN Reason: Pain Score 6-10/10 Pantoprazole Sodium 40 mg/ (Sodium Chloride) 110 mls @ 330 mls/hr IV Q12 [facility] Last Infusion: 12/05/18 10:45 Dose: Infused Documented by: Sodium Chloride () 500 mls @ 15 mls/hr IV PRN PRN PRN Reason: Blood Transfusion Sodium Chloride () 250 mls @ 15 mls/hr IV .[id number] PRN PRN Reason: Saline Flush Last Infusion: 10/26/19 21:20 Dose: 0 mls/hr Documented by: Magnesium Oxide (Mag-Ox 400) 400 mg PO SUTH [facility] Last Admin: 12/05/18 09:24 Dose: 400 mg Documented by: Metoprolol Succinate (Toprol Xl (Beta Angela)) 25 mg PO DAILY [facility] Last Admin: 12/05/18 09:24 Dose: 25 mg Documented by: Nitroglycerin (Nitrostat) 0.4 mg SUBLINGUAL Q5M PRN PRN Reason: CARDIAC/CHEST PAIN Ondansetron HCl (Zofran) 4 mg IV Q8H PRN PRN PRN Reason: SEVERE N/V Oxycodone HCl (Oxyir) 5 mg PO Q4H PRN PRN PRN Reason: Pain Score 4-5/10 Potassium Chloride (K-Dur) 10 meq PO BID [facility] Last Admin: 12/05/18 09:24 Dose: 10 meq Documented by: Prochlorperazine Edisylate (Compazine Iv) 5 mg IV Q4H PRN PRN PRN Reason: Breakthrough Nausea/Vomiting Promethazine HCl (Phenergan) 12.5 mg IV Q6H PRN PRN PRN Reason: Breakthrough Nausea/Vomiting Last Admin: 12/03/18 13:45 Dose: 12.5 mg Documented by: Sacubitril/Valsartan (Entresto 49 Mg-51 Mg Tablet) 1 each PO BID [facility] Last Admin: 12/05/18 09:24 Dose: 1 each Documented by: Sodium Chloride () 10 - 40 ml IV UD PRN PRN Reason: SALINE FLUSH Last Admin: 12/04/18 21:16 Dose: 10 ml Documented by: Medical Necessity - Tobacco Use Smoking Status: Former smoker Assessment/Plan All Active Problems (Last Updated 03/19/18 @ 11:56 by Izzy Demarco) Abdominal pain (Acute) History of cardiac radiofrequency ablation (Resolved) AICD discharge (Resolved) Acute renal failure (Resolved) Dehydration (Resolved) Nausea & vomiting (Resolved) Smoking addiction (Resolved) #1 generalized abdominal pain with lactoferrin positive stool-etiology unknown at this time, probable viral gastroenteritis, patient will undergo an EGD and colonoscopy tomorrow #2 ischemic cardiomyopathy-again patient was seen by cardiology today who felt that he was stable to undergo endoscopy tomorrow. #3 coronary artery disease #4 coagulopathy secondary to Coumadin usage-patient was given 5 mg of vitamin K IV today, INR will be rechecked tomorrow, it may be necessary to give the patient fresh frozen plasma before endoscopy if his INR is still highly elevated tomorrow. #5 hyperlipidemia #6 essential hypertension #7 chronic systolic congestive heart failure Code Visit Inpatient E&M: 18974 Subs Hosp L2
[2018-12-05] MEDS: Atorvastatin Calcium 40 MG Tablet PO (21:07)
[2018-12-05] MEDS: Aspirin 81 MG TAB.CHEW PO (21:07)
[2018-12-05] MEDS: 0.9% Saline Lock 10 ML Syringe IV (21:07)
[2018-12-06] VITALS (11 sets, daily range): BP systolic 88–106; BP diastolic 49–73; PULSE 60–67; RESP 16; TEMP 36.6–36.8; O2SAT 95–97
[2018-12-06 06:01] LABS: Absolute Lymphocyte Count 1.86 X10^3/uL (0.83-4.51); Absolute Neutrophil Count 3.6 X10^3/uL (2.0-7.7); Basophil# 0.04 X10^3/uL; Basophil% 0.6 % (0-1); Eosinophil# 0.29 X10^3/uL; Eosinophils% 4.5 % (0-5); Hematocrit 34.9 % (40-54); Hemoglobin 11.9 g/dL (13.0-16.5); Lymphocyte # 1.86 X10^3/ul (4.0); Lymphocyte % 28.9 % (19-41); Mean Corp Hgb Conc 34.1 g/dL (32-36); Mean Corpuscular Hgb 31.5 pg (27.0-32.0); Mean Corpuscular Volume 92.3 fL (80-94); Mean Platelet Vol. 10.5 fl (6.2-12.0); Monocyte% 9.3 % (0-10); NRBC Flagged by Analyzer 0 % (0-5); Neutrophil # 3.62 X10^3/uL (2.7-7.7); Neutrophil % 56.4 % (47-70); Platelet Count 144 K/mm3 (150-450); RBC Distribution Width CV 13.2 % (11.6-14.6); RBC Distribution Width SD 44.1 fl (35.1-43.9); Red Blood Count 3.78 M/mm3 (4.6-6.2); White Blood Count 6.4 K/mm3 (4.4-11.0)
[2018-12-06 06:16] LABS: International Normalized Ratio 1.5; Prothrombin Time (Protime)PT. 17.8 SECONDS (11.7-14.9)
[2018-12-06 06:17] LABS: Anion Gap 6 (5-15); BUN 8 mg/dL (7-18); Calcium,Total 7.5 mg/dL (8.5-10.1); Chloride 111 mmol/L (98-107); EST Glomerular Filtration Rate 79 mL/min (>60); Est Glom Filt Rate - Afr Amer 95 mL/min (>60); Estimated Creatinine Clearance 67.75 ml/min; Glucose 118 mg/dL (74-106); Potassium 3.5 mmol/L (3.5-5.1); Sodium Level 144 mmol/L (136-145)
--- NOTE | 2018-12-06 09:47 | NURSING ---
report given to Amarilis in [facility]
[2018-12-06] MEDS: Lactated Ringers 1,000 ML 100 ML IV (10:01)
--- NOTE | 2018-12-06 10:16 | OP.ENDO_ITS ---
12/06/2018 Lilly Starr [address] [place] [address] Re : Upper GI endoscopy procedure for Eduard Leos Dear Dr. Starr This procedure was performed on Thursday, December 06, 2018. My impressions and recommendations are as follows: Impressions : - Normal first portion of the duodenum, second portion of the duodenum and third portion of the duodenum. - No gross lesions in the stomach. - No gross lesions in esophagus. - No specimens collected. Recommendations : - [facility] to [facility]. - Continue present medications. My findings are described in the full procedure note, which is enclosed. If I can be of further assistance, please feel free to contact me at Doctor phone number(s): , Work: . Sincerely, MD Nissa Vera MD 12/06/2018 10:16:25 AM This report has been signed electronically.
--- NOTE | 2018-12-06 10:18 | OP.ENDO_ITS ---
12/06/2018 Lilly Starr [address] [place] [address] Re : Colonoscopy procedure for Eduard Kennedypepper Dear Dr. Starr This procedure was performed on Thursday, December 06, 2018. My impressions and recommendations are as follows: Impressions : - Non-bleeding internal hemorrhoids. - No specimens collected. Recommendations : - Repeat colonoscopy in 10 years for screening purposes. - Return to primary care physician PRN. - Continue present medications. My findings are described in the full procedure note, which is enclosed. If I can be of further assistance, please feel free to contact me at Doctor phone number(s): , Work: . Sincerely, MD Nissa Vera MD 12/06/2018 10:18:40 AM This report has been signed electronically.
--- NOTE | 2018-12-06 11:06 | DCINST_ITS ---
- Discharge Diagnoses Current Active Problems: Current Active and Chronic Problems (Last Updated 03/19/18 @ 11:56 by Izzy Demarco) Abdominal pain (Acute) You will use the following diet at home:: No restrictions Your food should be the consistency of: Regular Your liquids should be the consistency of: Regular/Thin Discharge Activity: Return to Normal Activity Weight Bearing Status: Full weight bearing Allergies/Adverse Reactions: Allergies gemfibrozil Allergy (Intermediate, Verified 12/03/18 05:38) upset stomach; constipation amiodarone Adverse Reaction (Severe, Verified 12/03/18 05:38) Pulmonary fibrosis esomeprazole magnesium [From Nexium] Adverse Reaction (Verified 12/03/18 05:38) Diarrhea Medications to take at Discharge Pantoprazole Sodium [Protonix] 40 mg PO BID 06/11/13 Atorvastatin Calcium [Lipitor] 40 mg PO QHS 05/15/16 Magnesium Oxide [Mag-Ox 400] 400 mg PO MOFR 05/15/16 Sacubitril/Valsartan 49-51 mg [Entresto 49 mg-51 mg Tablet] 1 tab PO BID 05/15/16 Acetaminophen [Tylenol] 1,000 mg PO DAILY PRN 08/22/17 Aspirin [Aspirin, Baby] 81 mg PO QHS 08/22/17 Furosemide [Lasix] 40 mg PO BID 08/22/17 Warfarin Sodium 5 mg PO MOWEFR 08/22/17 Spironolactone 25 mg PO BID 08/23/17 Ondansetron [Zofran Odt] 4 mg PO Q8H PRN PRN #7 tab 02/12/18 loperamide 2 mg tablet 2 mg PO Q1-4H PRN 03/09/18 warfarin 7.5 mg tablet 7.5 mg PO SUTUTHSA tab 03/09/18 metoprolol succinate ER 25 mg tablet,extended release 24 hr 25 mg PO DAILY #90 tab 09/20/18 potassium chloride ER 10 mEq tablet,extended release(part/cryst) 10 meq PO BID #180 tab 09/28/18 Primary Care Physician: Lilly Starr MD [Primary Care Provider] - Test Results: Test results from this visit will be discussed in further detail at your follow- up appointment, if applicable. Please Follow Up With: Eugenie Mccollum NP-C
[2018-12-06] MEDS: SACUBITRIL/VALSARTAN 49-51 MG TABLET 1 EACH PO (11:27)
[2018-12-06] MEDS: Metoprolol(XL)Succ 25 MG Tablet PO (11:28)
--- NOTE | 2018-12-06 11:42 | PHA.DC.MR ---
Pharmacy Service has performed discharge medication reconciliation for this patient. No new medications upon discharge. Medications reviewed are from previously reported home medications. The patient's discharge medication list was reviewed for discrepancies and discrepancies were resolved. Home Medications Pantoprazole Sodium [Protonix] 40 mg PO BID 06/11/13 Atorvastatin Calcium [Lipitor] 40 mg PO QHS 05/15/16 Magnesium Oxide [Mag-Ox 400] 400 mg PO MOFR 05/15/16 Sacubitril/Valsartan 49-51 mg [Entresto 49 mg-51 mg Tablet] 1 tab PO BID 05/15/16 Acetaminophen [Tylenol] 1,000 mg PO DAILY PRN 08/22/17 Aspirin [Aspirin, Baby] 81 mg PO QHS 08/22/17 Furosemide [Lasix] 40 mg PO BID 08/22/17 Warfarin Sodium 5 mg PO MOWEFR 08/22/17 Spironolactone 25 mg PO BID 08/23/17 Ondansetron [Zofran Odt] 4 mg PO Q8H PRN PRN #7 tab 02/12/18 loperamide 2 mg tablet 2 mg PO Q1-4H PRN 03/09/18 warfarin 7.5 mg tablet 7.5 mg PO SUTUTHSA tab 03/09/18 metoprolol succinate ER 25 mg tablet,extended release 24 hr 25 mg PO DAILY #90 tab 09/20/18 potassium chloride ER 10 mEq tablet,extended release(part/cryst) 10 meq PO BID #180 tab 09/28/18
--- NOTE | 2018-12-07 08:19 | DS.PCM_ITS ---
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 [id number] [address] - Implant 06/21/13 Mixed hyperlipidemia (Chronic) Chronic systolic (congestive) heart failure (Chronic) Ischemic cardiomyopathy (Chronic) Atherosclerotic heart disease of [place] coronary artery without angina pectoris (Chronic) Essential hypertension (Chronic) PAF (paroxysmal atrial fibrillation) (Chronic) Sustained VT (ventricular tachycardia) (Chronic) Hospital Course and Treatment Operations: None Procedures: Colonoscopy, EGD Summary of Care Provided: The patient is a 73 year old M was seen in the emergency room at [facility] with chief complaint of generalized abdominal pain and lower chest wall pain. Patient also reported nausea with dry heaving. Finally, patient also was positive for one episode of diarrhea. Work-up in the emergency room was notable for an elevated white blood cell count of 20,000, patient's creatinine was elevated at 1.44, glucose was 191, and bilirubin was 1.1. Patient's magnesium was 1.5. Lactic acid was elevated but the patient was not felt to have severe sepsis. Patient was admitted to PCU, he received IV fluids, labs were repeated and revealed a normal white blood cell count. Patient continued to have some loose stools, work-up on the patient's stool did not reveal an etiology for his diarrhea. Patient was seen in consultation by general surgery who recommended performing endoscopy on the patient, he was seen before his endoscopy by cardiology for clearance due to his history of ischemic cardiomyopathy. On 12/06/2018, colonoscopy and EGD was performed-these tests were normal. On 12/06/2018, patient was seen and examined: On examination he appeared in good health and spirits. Vital signs as documented. Skin warm and dry and without overt rashes. Neck without JVD. Lungs clear. Heart exam notable for regular rhythm, normal sounds and absence of murmurs, rubs or gallops. Abdomen unremarkable and without evidence of organomegaly, masses, or abdominal aortic enlargement. Extremities nonedematous. Neuro: Cranial nerves II through XII are grossly intact, no focal motor deficits were noted, sensation to light touch and pinprick intact. Psych: Patient is alert and oriented x3, he does not appear anxious or depressed On 12/06/2018, patient was seen and examined and felt to be in stable condition for discharge home - Physical Exam Vitals/I&O's: Vital Signs Temp Pulse Resp BP Pulse Ox 98.1 F 67 16 96/67 97 12/06/18 11:20 12/06/18 11:28 12/06/18 11:20 12/06/18 11:20 12/06/18 11:20 Oxygen Flow Rate (L/min) 2 Oxygen Delivery Method Room Air Weight: 102 kg Body Mass Index (BMI) 33.2 Intake and Output for Last 24 Hours 12/05/18 12/06/18 12/07/18 23:59 23:59 23:59 Intake Total 2550.5 / 2550.5 350 / 350 Balance 2550.5 / 2550.5 350 / 350 Microbiology Past 72 Hours 12/03/18 11:14 Blood Culture (Wb) - Anticubital Left Blood Culture - Pre liminary No growth in 48 hours. 12/03/18 11:19 Blood Culture (Wb) - Left Hand Blood Culture - Preliminary No growth in 48 hours. 12/03/18 Unknown Urine, Clean Catch Urine Culture - Final Culture exhibits no growth. 12/03/18 17:25 Stool Enteric Bacteriology - Final Discharge Activity: Return to Normal Activity Weight Bearing Status: Full weight bearing Home Medications: Medications to take at Discharge Pantoprazole Sodium [Protonix] 40 mg PO BID 06/11/13 Atorvastatin Calcium [Lipitor] 40 mg PO QHS 05/15/16 Magnesium Oxide [Mag-Ox 400] 400 mg PO MOFR 05/15/16 Sacubitril/Valsartan 49-51 mg [Entresto 49 mg-51 mg Tablet] 1 tab PO BID 04/06/17 Acetaminophen [Tylenol] 1,000 mg PO DAILY PRN 08/22/17 Aspirin [Aspirin, Baby] 81 mg PO QHS 08/22/17 Furosemide [Lasix] 40 mg PO BID 08/22/17 Warfarin Sodium 5 mg PO MOWEFR 08/22/17 Spironolactone 25 mg PO BID 08/23/17 Ondansetron [Zofran Odt] 4 mg PO Q8H PRN PRN #7 tab 02/12/18 loperamide 2 mg tablet 2 mg PO Q1-4H PRN 03/09/18 warfarin 7.5 mg tablet 7.5 mg PO SUTUTHSA tab 03/09/18 metoprolol succinate ER 25 mg tablet,extended release 24 hr 25 mg PO DAILY #90 tab 09/20/18 potassium chloride ER 10 mEq tablet,extended release(part/cryst) 10 meq PO BID #180 tab 09/28/18 Primary Care Physician: Lilly Starr MD [Primary Care Provider] - Please Follow Up With: Eugenie Mccollum, PROCESSOR G[employer]C Disposition: Home Minutes spent on discharge:: 34 Patient Condition:: Stable Medical Necessity - Tobacco Use Smoking Status: Former smoker Meaningful Use Info Meaningful Use Diagnoses (Choose all that apply): None applicable Code Visit Inpatient E&M: 82962 Disch Hosp
--- NOTE | 2018-12-07 13:14 | CASEMGMT ---
RN CHAVA DC PHONE CALL DC DATE: 12/07/18 DC Disposition: Home Diagnosis on Discharge: ABd pain LACE/STRATA: 12/12 Intro role of CM to patient. Pt states he has good understanding of instructions, medications and f/u. No care improvement suggestions given and pt states he would like to clone the nurses, they were wonderful. Ruth BARROWN RN AC
== END 2018-12-06 13:28 | disposition home or self-care (01) | DRG 392 ==
LOC: ED 10:12 → PCU 11:56
PROVIDERS: Anesthesiology; Emergency Medicine; Surgery; Admitting Provider Internal Medicine; Emergency Provider Emergency Medicine; Family Provider Internal Medicine; PCP Internal Medicine; Visit Provider Internal Medicine
PROC: 0DJD8ZZ Inspection of Lower Intestinal Tract, Via Natural or Artificial Opening Endoscopic (ICD-10-PCS; CPT 45378; principal; 2018-12-06 13:15)
DX: A08.4 Viral intestinal infection, unspecified (principal); I50.22 Chronic systolic (congestive) heart failure; E87.2 Acidosis; I25.10 Atherosclerotic heart disease of native coronary artery without angina pectoris; I48.0 Paroxysmal atrial fibrillation; Z99.81 Dependence on supplemental oxygen; I11.0 Hypertensive heart disease with heart failure; K64.8 Other hemorrhoids; I25.5 Ischemic cardiomyopathy; E86.0 Dehydration; E83.42 Hypomagnesemia; E78.2 Mixed hyperlipidemia; R79.1 Abnormal coagulation profile; Z90.49 Acquired absence of other specified parts of digestive tract; Z95.810 Presence of automatic (implantable) cardiac defibrillator; I25.2 Old myocardial infarction; Z79.01 Long term (current) use of anticoagulants; Z95.5 Presence of coronary angioplasty implant and graft; Z87.891 Personal history of nicotine dependence; R06.89 Other abnormalities of breathing; R09.02 Hypoxemia
CPT/HCPCS: 36415; 71046; 74177; 80048; 80053; 81001; 82274; 82962; 83605; 83630; 83690; 83735; 84484; 85025; 85610; 87040; 87086; 87493; 87506; 93005; 99285; J7030; J7050; J7120; Q9967; A4216; J2405; J3490

== ENCOUNTER → 2019-03-29 | Outpatient (CLI) | payer MEDICARE, SELFPAY ==
[2019-03-04 13:52] VITALS: BMI 33.5
--- NOTE | 2019-03-29 12:29 | ECHOCS_ITS ---
Version 2 Reason For Study: CHF Procedure This was a 2D Doppler, Color Flow transthoracic echocardiogram. The study was technically difficult. Contrast injection was performed. Exam performed in department. Left Ventricle Severely dilated left ventricle. Severe segmental systolic dysfunction (see wall motion). The estimated ejection fraction is 20 %. No evidence for diastolic dysfunction. Lateral-Basal: Severely Hypokinetic. Posterior-Basal: Akinetic. Infero-Basal: Akinetic. Basal inferoseptal: Akinetic. Mid- Anterior : Hypokinetic. Mid-Lateral : Severely Hypokinetic. Mid-Posterior: Akinetic. Mid-Inferior: Hypokinetic. Mid-inferoseptal : Akinetic. Mid-anteroseptal : Hypokinetic. Anterior Wy[place]off : Akinetic. Inferior [place] : Akinetic. Lateral [place] : Dyskinetic. Septal [place] : Akinetic. Right Ventricle Normal RV size. ICD or pacer leads identified within the right ventricle. Normal systolic function. Atria The left atrium is mildly enlarged. Normal right atrium. ICD or pacer leads identified within the right atrium. No doppler evidence for ASD. Mitral Valve There is no mitral annular calcification. Normal mitral valve. Mild-Moderate (1-2+) mitral valve insufficiency. Tricuspid Valve Normal tricuspid valve. Trivial tricuspid valve insufficiency. Unable to estimate RV systolic pressure/pulmonary artery pressure due to technically difficult study. Aortic Valve Trisinus/trileaflet aortic valve. Normal aortic valve. Pulmonic Valve The pulmonic valve is not well visualized. Trivial pulmonic valve insufficiency. Great Vessels Normal sized aortic root. Pericardium/Pleural No pericardial effusion. Epicardial fat. Medication 22 gauge I.V. with prn adaptor inserted into left arm. Diluted definity 6ml given slow IV push to enhance endocardial definition. MMode/2D Measurements & Calculations LVIDd: 6.9 cm IVSd: 1.1 cm Ao root diam: 3.2 cm LVIDs: 6.5 cm LVPWd: 1.2 cm LA dimension: 4.9 cm FS: 6.4 % LAV(MOD-bp): 61.3 ml LA A4 area: 22.2 cm2 RA A4 area: 18.6 cm2 LAV(MOD-bp) Indexed: 28.5 ml/m2 LAV(MOD-sp2): 51.5 ml LAV(MOD-sp4): 64.9 ml Time Measurements MV dec time: 0.38 sec Doppler Measurements & Calculations MV E max shmuel: 47.2 cm/sec Lat Peak E' Shmuel: 5.4 cm/sec Med Peak E' Shmuel: 4.2 cm/sec MV A max shmuel: 98.3 cm/sec E/E' lat: 8.8 E/E' med: 11.3 MV E/A: 0.48 MV V2 max: 108.8 cm/sec MV P1/2t max shmuel: 57.8 cm/sec Ao V2 max: 113.5 cm/sec MV max P.7 mmHg MV P1/2t: 123.1 msec Ao max P.2 mmHg MV V2 mean: 47.9 cm/sec MV dec slope: 137.5 cm/sec2 Ao V2 mean: 77.1 cm/sec MV mean P.2 mmHg Ao mean P.6 mmHg MV V2 VTI: 28.3 cm MVA(P1/2t): 1.8 cm2 Ao V2 VTI: 22.6 cm LV V1 max: 92.9 cm/sec PA V2 max: 71.3 cm/sec LV V1 max P.5 mmHg LV V1 mean P.7 mmHg LV V1 mean: 58.9 cm/sec LV V1 VTI: 18.7 cm Interpretation Summary The study was technically difficult. Contrast injection was performed. Severely dilated left ventricle. Severe segmental systolic dysfunction (see wall motion). The estimated ejection fraction is 20 %. The left atrium is mildly enlarged. Mild-Moderate (1-2+) mitral valve insufficiency. Trivial tricuspid valve insufficiency. Trivial pulmonic valve insufficiency. Epicardial fat. Unable to estimate RV systolic pressure/pulmonary artery pressure due to technically difficult study. No evidence for diastolic dysfunction. ICD or pacer leads identified within the right atrium ICD or pacer leads identified within the right ventricle. Ordering Physician: Denis Jorge Referring Physician: Lilly Starr M.D. Performed By: Surya Porras RCS
== END | disposition home or self-care (01) ==
LOC: CVS 12:29
PROVIDERS: PCP Internal Medicine; Referring Provider Internal Medicine Cardiovascular Disease; Visit Provider Internal Medicine Cardiovascular Disease
DX: I25.10 Atherosclerotic heart disease of native coronary artery without angina pectoris (principal); I50.9 Heart failure, unspecified
CPT/HCPCS: 93306; Q9957; A4216; C8929

== ENCOUNTER → 2019-04-12 | Outpatient (CLI) | payer MEDICARE, SELFPAY ==
[2019-03-04 13:52] VITALS: BMI 33.5
--- NOTE | 2019-04-12 18:05 | STRESSREP_ITS ---
Stress Test Report Date: 04-12-2019 Procedure: Pharmacologic stress nuclear imaging study Indications: Shortness of breath/dyspnea; CAD; PCI; ischemic mediated cardiomyopathy; paroxysmal atrial fibrillation; ICD Consent: Per the patient Procedure: The patient underwent pharmacologic (Regadenoson) evaluation with a peak heart rate of 83 beats per minute (56 %predicted maximal heart rate) and a peak blood pressure of 104/60 mmHg. The baseline ECG demonstrated sinus rhythm; anterior lateral DE of indeterminate age cannot be excluded; inferior DE of indeterminate age cannot be excluded. The peak pharmacologic ECG demonstrated no obvious ECG changes. There were no cardiac dysrhythmias pretest, during pharmacologic infusion, or recovery. There was no complaint of chest discomfort during pharmacologic infusion or recovery. The examination was discontinued secondary to completion of protocol. Impression: 1. Pharmacologic (Regadenoson) evaluation 2. Peak pharmacologic ECG with no obvious ECG changes. 3. There were no cardiac dysrhythmias pretest, during pharmacologic infusion, or recovery. 4. Nuclear images pending Myocardial perfusion imaging study: Technique: The patient was injected with 14.6 millicuries of technetium 99m Cardiolite and subsequently rest SPECT Cardiolite nuclear imaging was obtained in the horizontal long, vertical long, and short axis views. The patient underwent pharmacologic (Regadenoson) evaluation with a peak heart rate of 83 beats per minute (56 % percent predicted maximal heart rate) and a peak blood pressure of 104/60 mmHg. The patient was injected with 44.9 millicuries of technetium 99m Cardiolite and subsequently stress SPECT Cardiolite nuclear imaging was obtained in the horizontal long, vertical long, and short axis views. A gated Cardiolite study at peak stress was obtained. Interpretation: Rest and stress SPECT Cardiolite nuclear imaging status post realignment, normalization, and attenuation correction demonstrate areas of diminished tracer uptake to absence of tracer uptake in portions of the distal anterior, mid to distal inferolateral, and apical segments. There is diminished end systolic thickening and brightening.. Gated Cardiolite study demonstrates diminished myocardial thickening and inward wall motion. The reported LVEF is 19 %. Impression: 1. Rest and stress SPECT Cardiolite nuclear imaging demonstrate myocardial perfusion changes appearing compatible with areas of previous myocardial injury/infarction in portions of the distal anterior, mid to distal inferolateral, and apical segments with no myocardial perfusion changes considered diagnostic for stress-induced myocardial ischemia. 2. The gated Cardiolite study reports an LVEF of 19 %. This note was generated with [employer] software. It may contain incorrect words, spelling, and punctuation that were not noted in checking the note before signing.
== END | disposition home or self-care (01) ==
PROVIDERS: PCP Internal Medicine; Referring Provider Internal Medicine Cardiovascular Disease; Visit Provider Internal Medicine Cardiovascular Disease
DX: I25.10 Atherosclerotic heart disease of native coronary artery without angina pectoris (principal); I25.5 Ischemic cardiomyopathy; I48.0 Paroxysmal atrial fibrillation; I50.22 Chronic systolic (congestive) heart failure; R06.02 Shortness of breath
CPT/HCPCS: 78452; 93017; A9500; A4216; J2785

== ENCOUNTER → 2019-05-02 | Outpatient (CLI) | payer MEDICARE, SELFPAY ==
[2019-03-04 13:52] VITALS: BMI 33.5
[2019-05-02 15:36] LABS: Anion Gap 9 (5-15); BUN 14 mg/dL (7-18); BUN/Creat Ratio 10.9 RATIO (10-20); Calcium,Total 8.8 mg/dL (8.5-10.1); Chloride 101 mmol/L (98-107); Creatinine, Serum 1.29 mg/dL (0.70-1.30); EST Glomerular Filtration Rate 58 mL/min (>60); Est Glom Filt Rate - Afr Amer 70 mL/min (>60); Glucose 133 mg/dL (74-106); Potassium 4.1 mmol/L (3.5-5.1); Sodium Level 136 mmol/L (136-145)
== END | disposition home or self-care (01) ==
LOC: LAB 14:09
PROVIDERS: PCP Internal Medicine; Referring Provider Internal Medicine Cardiovascular Disease; Visit Provider Internal Medicine Cardiovascular Disease
DX: I50.22 Chronic systolic (congestive) heart failure (principal); I25.5 Ischemic cardiomyopathy
CPT/HCPCS: 36415; 80048

== ENCOUNTER → 2019-09-02 | Outpatient (CLI) | payer MEDICARE, SELFPAY ==
[2019-09-02 14:23] VITALS: BMI 33.5
[2019-09-02 16:07] LABS: Anion Gap 5 (5-15); BUN 13 mg/dL (7-18); BUN/Creat Ratio 10.5 RATIO (10-20); Calcium,Total 8.4 mg/dL (8.5-10.1); Chloride 104 mmol/L (98-107); Creatinine, Serum 1.24 mg/dL (0.70-1.30); EST Glomerular Filtration Rate 61 mL/min (>60); Est Glom Filt Rate - Afr Amer 74 mL/min (>60); Glucose 113 mg/dL (74-106); Potassium 3.8 mmol/L (3.5-5.1); Sodium Level 138 mmol/L (136-145)
[2019-09-02 16:13] LABS: BNP,B-Type NATRIURETIC PEPTIDE 43.7 pg/mL (0-100)
== END | disposition home or self-care (01) ==
LOC: LAB 14:37
PROVIDERS: PCP Internal Medicine; Referring Provider Physician Assistant Medical; Visit Provider Physician Assistant Medical
DX: I50.22 Chronic systolic (congestive) heart failure (principal); R06.00 Dyspnea, unspecified
CPT/HCPCS: 36415; 80048; 83880

== ENCOUNTER → 2020-04-19 09:34 | Outpatient (CLI) | payer MEDICARE, SELFPAY ==
[2019-09-02 14:23] VITALS: BMI 33.5
[2020-04-18 14:01] VITALS: BMI 33.5
--- NOTE | 2020-04-20 09:46 | PFT ---
INTRODUCTION: The patient is a 75-year-old male who presents for pulmonary function studies secondary to a diagnosis of lung disorder. Respiratory therapy reports good patient effort. Bronchodilators were used during testing. INTERPRETATION: Forced expiration spirometry demonstrates no evidence of a large airways obstructive ventilatory defect. There was no significant response to aerosolized bronchodilators, based upon strict ATS criteria. Spirograms are of good quality and plateau normally. Body plethysmography was performed and reveals lung volumes to be within normal limits. Diffusing capacity by single breath CO is reduced at 43% of predicted. IMPRESSION: Isolated reduction in diffusing capacity, which could be related to an underlying pulmonary vascular disorder, such as pulmonary hypertension. There are no previous pulmonary function studies available for comparison.
== END ==
PROVIDERS: PCP Internal Medicine
DX: J98.4 Other disorders of lung (principal); T46.2X5A Adverse effect of other antidysrhythmic drugs, initial encounter
CPT/HCPCS: 94060; 94726; 94729

== ENCOUNTER → 2020-04-24 13:27 | Outpatient (CLI) | payer MEDICARE, SELFPAY ==
[2019-09-02 14:23] VITALS: BMI 33.5
[2020-04-18 14:01] VITALS: BMI 33.5
[2020-04-24 13:45] VITALS: PULSE 63; PULSE 66; PULSE 70; PULSE 71; PULSE 72; PULSE 76; O2SAT 92; O2SAT 93; O2SAT 94; O2SAT 96
--- NOTE | 2020-04-24 14:01 | CPS ---
Pt rested from 3 minute elsa till 5 minutes for a racing heart per pt.
--- NOTE | 2020-04-24 15:00 | PCM.PSN.6M ---
PSN 6 Minute Walk Test - 6 Minute Walk Test 6 Minute Walk Test: 6 Minute Walk Test PSN:6-Minute Walk Test Start: 04/24/20 13:57 Freq: Status: Active Protocol: [id number].6MINW Document 04/24/20 13:45 [facility] (Rec: 04/24/20 14:04 [facility] [id number]) 6 Minute Walk Test Date Performed 04/24/20 Time Performed 13:45 Height 5 ft 9 in Weight: 99.79 kg Weight in Pounds 220.[address]: Andre Assistive device used: Walker Pre-test Oxygen Delivery Method Room Air Pulse Ox (%) 94 Pulse Rate (60-100 beats/min) 63 Dyspnea Olis Scale (0-10) 4 Exertion Lois Scale (6-20) 6 1st minute Oxygen Delivery Method Room Air Pulse Ox (%) 94 Pulse Rate (60-100 beats/min) 76 2nd minute Oxygen Delivery Method Room Air Pulse Ox (%) 92 Pulse Rate (60-100 beats/min) 72 3rd minute Oxygen Delivery Method Room Air Pulse Ox (%) 93 Pulse Rate (60-100 beats/min) 63 Number of Rests Taken 1 4th minute Oxygen Delivery Method Room Air Pulse Ox (%) 93 Pulse Rate (60-100 beats/min) 72 Number of Rests Taken 1 5th minute Oxygen Delivery Method Room Air Pulse Ox (%) 94 Pulse Rate (60-100 beats/min) 70 Number of Rests Taken 1 6th minute Oxygen Delivery Method Room Air Pulse Ox (%) 96 Pulse Rate (60-100 beats/min) 71 Dyspnea Lois Scale (0-10) 5 Exertion Lois Scale (6-20) 8 Post-test Oxygen Delivery Method Room Air Pulse Ox (%) 92 Pulse Rate (60-100 beats/min) 66 Full Laps Walked 9 Partial Lap, Number of Tiles Walked 26 Total Distance Walked (ft) 557 04/24/20 14:01 Cardiopulmonary Services by Jerri Thompson Pt rested from 3 minute elsa till 5 minutes for a racing heart per pt. Initialized on 04/24/20 14:01 - END OF NOTE - Interpretation Interpretation: The patient was able to ambulate 557 feet over the course of 6 minutes on room air with the assistance of a walker and 3 breaks. The patient experienced no significant desaturation or tachycardia, but did report he felt like his heart was racing. Oxygen sd was noted at 92% with a peak heart rate of 76 bpm. These findings are consistent with a musculoskeletal limitation exercise tolerance. - Recommendations Recommendations: No supplemental oxygen is indicated at this time.
== END ==
PROVIDERS: PCP Internal Medicine
DX: J98.4 Other disorders of lung (principal); T46.2X5A Adverse effect of other antidysrhythmic drugs, initial encounter
CPT/HCPCS: 94618

== ENCOUNTER → 2020-05-08 12:39 | Outpatient (CLI) | payer MEDICARE, SELFPAY ==
[2020-04-18 14:01] VITALS: BMI 33.5
--- NOTE | 2020-05-08 12:42 | ECHOCS_ITS ---
Reason For Study: CHF Procedure This was a 2D Doppler, Color Flow transthoracic echocardiogram. The study was technically difficult. Due to body habitus. Contrast injection was performed. Exam performed in department. Left Ventricle Severely dilated left ventricle. Severe segmental systolic dysfunction (see wall motion). The estimated ejection fraction is 20 %. No evidence for diastolic dysfunction. Lateral-Basal: Hypokinetic. Posterior-Basal: Akinetic. Infero-Basal: Hypokinetic. Basal inferoseptal: Hypokinetic. Mid-Anterior : Hypokinetic. Mid-Lateral : Akinetic. Mid-Posterior: Not visualized. Mid-Inferior: Hypokinetic. Mid-inferoseptal : Hypokinetic. Mid-anteroseptal : Hypokinetic. Anterior Story : Not visualized. Inferior Story : Akinetic. Lateral Story : Akinetic. Septal Story : Akinetic. Right Ventricle Normal RV size. ICD or pacer leads identified within the right ventricle. Normal systolic function. Atria The left atrium is mildly enlarged. Normal right atrium. ICD or pacer leads identified within the right atrium. No doppler evidence for ASD. Mitral Valve There is no mitral annular calcification. Normal mitral valve. Trivial mitral valve insufficiency. Tricuspid Valve Normal tricuspid valve. Trivial tricuspid valve insufficiency. Unable to estimate RV systolic pressure/pulmonary artery pressure due to technically difficult study. Aortic Valve The aortic valve is not well visualized. Pulmonic Valve The pulmonic valve is not well visualized. Great Vessels Normal sized aortic root. Pericardium/Pleural No pericardial effusion. Epicardial fat. Medication 22 gauge I.V. with prn adaptor inserted into left arm. Diluted definity 5.0ml given slow IV push to enhance endocardial definition. MMode/2D Measurements & Calculations LVIDd: 6.4 cm IVSd: 1.1 cm Ao root diam: 3.5 cm LVIDs: 5.7 cm LVPWd: 1.2 cm RVDd: 3.0 cm FS: 11.0 % LAV(MOD-bp): 64.0 ml LA A4 area: 20.3 cm2 LA dimension(2D): 3.9 cm LAV(MOD-bp) Indexed: 29.4 ml/m2 LAV(MOD-sp2): 62.1 ml LAV(MOD-sp4): 62.0 ml RA A4 area: 17.4 cm2 Time Measurements MV dec time: 0.23 sec Doppler Measurements & Calculations MV E max shmuel: 38.9 cm/sec Lat Peak E' Shmuel: 3.1 cm/sec Med Peak E' Shmuel: 6.1 cm/sec MV A max shmuel: 86.2 cm/sec E/E' lat: 12.5 E/E' med: 6.4 MV E/A: 0.45 Ao V2 max: 103.4 cm/sec LV V1 max: 70.3 cm/sec PA V2 max: 89.2 cm/sec Ao max P.3 mmHg LV V1 max P.0 mmHg ECHO/Echo Complete W/ Contrast Interpretation Summary The study was technically difficult. Contrast injection was performed. Severely dilated left ventricle. Severe segmental systolic dysfunction (see wall motion). The estimated ejection fraction is 20 %. The left atrium is mildly enlarged. Trivial mitral valve insufficiency. Trivial tricuspid valve insufficiency. Epicardial fat. Unable to estimate RV systolic pressure/pulmonary artery pressure due to techni manpreet difficult study. No evidence for diastolic dysfunction. ICD or pacer leads identified within the right atrium ICD or pacer leads identified within the right ventricle. Ordering Physician: Denis Jorge Referring Physician: Lilly Starr Performed By: Mary Larson, CHARMAINE, RVT
== END ==
PROVIDERS: PCP Internal Medicine; Referring Provider Internal Medicine Cardiovascular Disease; Visit Provider Internal Medicine Cardiovascular Disease
DX: I51.7 Cardiomegaly (principal); I50.9 Heart failure, unspecified
CPT/HCPCS: 93306; Q9957; A4216; C8929

== ENCOUNTER 2020-06-18 18:22 | Observation (INO) | payer MEDICARE, SELFPAY ==
[2020-04-18 14:01] VITALS: BMI 33.5
[2020-06-18] VITALS (7 sets, daily range): BP systolic 92–146; BP diastolic 60–77; PULSE 60–71; RESP 12–18; TEMP 36.4; O2SAT 94–99; BMI 33.5; BMI 33.0
--- NOTE | 2020-06-18 18:32 | EKG12_ITS ---
Test Reason : CP Blood Pressure : / mmHG Vent. Rate : 062 BPM Atrial Rate : 062 BPM P-R Int : 146 ms QRS Dur : 094 ms QT Int : 414 ms P-R-T Axes : 017 -46 -06 degrees QTc Int : 420 ms Normal sinus rhythm Left axis deviation Low voltage QRS Possible Lateral infarct , age undetermined Inferior infarct , age undetermined Abnormal ECG Confirmed by JAVI TRAVIS, FABBY ([id number]), restaurant expeditor FIDENCIO DYER ([id number]) on 06/20/2020 8:24:11 AM Referred By: MÓNICA Confirmed By:FABBY CALDWELL MD
--- NOTE | 2020-06-18 18:33 | EDS_ITS ---
HPI History of Present Illness Chief Complaint: Chest Pain Informant: patient Onset/Context/Timing Onset: Days Activity at onset: gradual Timing: Intermittent Quality: Positive for Heaviness and Pain Location: Substernal Current Severity: Moderate Maximum Severity: Moderate Worsened By: Movement of Torso Relieved By: Nothing Associated Symptoms: Positive for Nausea Narrative Narrative: The patient is a 75-year-old male with medical history significant for coronary vascular disease, paroxysmal atrial fibrillation, OH with stents, congestive heart failure status post AICD placement, who presents to the emergency department chest and back pain. Patient states that started about 3 days ago. He states he had a dull ache in his substernal area. He states it seemed like it was going to his back from time to time. He states that it would wax and wane. He states that over the past 24 hours, the pain is gotten worse. He states is worse when he moves or twists. He has been mildly nauseated but denies any vomiting. He denies any shortness of breath. The pain does not radiate down his arm. He states this feels similar than his prior MIs in the past. Recent Illness/Hospitalization: No PFSH PFSH Medical History Atherosclerotic heart disease of [place] coronary artery without angina pectoris Atrial fibrillation Chronic systolic (congestive) heart failure CVA (cerebral vascular accident) Essential hypertension Ischemic cardiomyopathy custodial (current) use of anticoagulants Mixed hyperlipidemia Presence of stent in coronary artery (~02/21/13) Home Medications magnesium oxide 400 mg PO MOWEFR 05/15/16 [History Last Taken Unknown] acetaminophen 1,000 mg PO PRN PRN 08/22/17 [History Last Taken Unknown] aspirin 81 mg PO QHS 08/22/17 [History Last Taken 08/22/17] lactobacillus combination no.8 3 billion cell capsule 3,000 mmu cells PO DAILY 09/02/19 [History Last Taken Unknown] atorvastatin 40 mg tablet 40 mg PO QHS #90 tab 03/15/20 [Rx Last Taken Unknown] metoprolol succinate 50 mg tablet,extended release 24 hr 50 mg PO DAILY #90 tab 03/15/20 [Rx Last Taken Unknown] potassium chloride 10 mEq capsule,extended release 20 meq PO BID #360 cap 03/15/20 [Rx Last Taken Unknown] furosemide 40 mg tablet 60 mg PO BID tab 04/18/20 [History Last Taken Unknown] pantoprazole 40 mg tablet,delayed release 40 mg PO BID tab 04/18/20 [History Last Taken Unknown] trazodone 50 mg tablet 50 mg PO QHS 04/18/20 [History Last Taken Unknown] spironolactone 25 mg tablet 25 mg PO BID #180 tablet 05/14/20 [Rx Last Taken Unknown] sacubitril-valsartan [Entresto] 1 tab PO BID 06/18/20 [History Last Taken Unknown] warfarin 5 mg PO TUWETHFRSA 06/18/20 [History Last Taken Unknown] warfarin 7.5 mg PO SUMO 06/18/20 [History Last Taken Unknown] Allergy/AdvReac Type Severity Reaction Status Date / Time gemfibrozil Allergy Intermediate upset Verified 06/18/20 18:23 stomach; constipation amiodarone AdvReac 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 esomeprazole magnesium AdvReac Diarrhea Verified 06/18/20 18:23 [From Nexium] Family History Mother CVA (cerebral vascular accident) Grandfather Heart disease Father Cancer testicular Sister Cancer Breast Surgical History History of cardiac radiofrequency ablation History of cholecystectomy Presence of coronary angioplasty implant and graft (~02/21/13) Presence of implantable cardioverter-defibrillator (ICD) (~06/21/13) Social History Smoking Status: Former smoker alcohol intake: never substance use type: does not use ROS ROS ED Constitutional Constitutional ED: Denies chills or fever(s) Eyes Eyes: Denies blurry vision or change in vision ENT ENT ED: Denies ear pain or sore throat Cardiovascular Cardiovascular: Reports chest pain Respiratory/Chest Respiratory/Chest: Denies cough, dyspnea or dyspnea on exertion Gastrointestinal Gastrointestinal: Reports abdominal pain and nausea Genitourinary Genitourinary ED: Denies dysuria or urinary frequency Musculoskeletal Musculoskeletal: Denies arthralgias or myalgias Integumentary Denies rash Neurologic Neurologic: Denies headache(s) or paresthesias Psychiatric Psychiatric: Denies anxiety or depression Endocrine Endocrinology: Denies polydipsia or polyuria Allergic/Immunologic Allergic/Immunologic ED: Denies urticaria EXAM Physical Exam Const Vital Signs: 06/18/20 18:23 06/18/20 18:30 06/18/20 18:32 Temperature 97.6 F L Temperature Source Temporal Pulse Rate 71 71 Respiratory Rate 16 14 Respiratory Effort Normal Non-Labored Blood Pressure 116/77 126/76 H Blood Pressure Mean 90 92 Pulse Ox 96 96 Oxygen Delivery Method Room Air Room Air 06/18/20 20:03 06/18/20 21:04 Temperature Temperature Source Pulse Rate 60 60 Respiratory Rate 18 18 Respiratory Effort Blood Pressure 146/72 H 92/60 Blood Pressure Mean 96 70 Pulse Ox 99 98 Oxygen Delivery Method Room Air Room Air Positive well nourished and well developed General Appearance ED: well developed HEENT Reports normocephalic, head/scalp atraumatic and moist mucous membranes Eyes PERRL and EOMs intact bilaterally Neck no lymphadenopathy and supple General: Negative for tenderness Chest Wall inspection of chest normal Resp normal respiratory effort and clear to auscultation bilaterally Cardio regular rate, regular rhythm and no murmurs GI normal to inspection, nondistended, normoactive bowel sounds; Negative for non- tender GI Narrative: Mild tenderness in the midepigastric area without rebound or guarding Palpation: Negative for tender, guarding or rebound tenderness present Back/Spine no CVA tenderness Cervical Spine: Negative for cervical spine tenderness Thoracic Spine / Upper Back: Negative for thoracic spinal tenderness Extremity normal to inspection General Extremety ED: Negative for tenderness Neuro oriented x3 and CN's II-XII intact bilaterally Neuro Narrative: No focal deficits appreciated. Sensorium / Orientation: awake, alert, oriented to person, oriented to place and oriented to time Psych mental status grossly normal Skin no rashes or lesions noted, no wounds and skin turgor normal MDM MDM MDM Narrative Medical decision making narrative: The patient is a 75-year-old male with h istory of significant coronary vascular disease that presents to the emergency department with chest pain and was back.EKG was obtained on arrival. It was paced rhythm without evidence of acute ischemia. I did want to rule out coronary causes of his pain even though he did have some reproducible abdominal tenderness. Screening labs do demonstrate a therapeutic INR. His cardiac enzymes are normal. He has been having intermittent chest pain for 3 days. With this, patient was sent for CT of the abdomen pelvis. This shows no acute abnormalities. He is now pain-free. Given his age and multiple risk factors, I do feel that he would benefit from observation. Patient was discussed with the hospitalist. Impression 1. Chest pain 2. Epigastric pain Lab Data Attestation: I reviewed the patient's lab results. Labs: Laboratory Results - last 24 hr 06/18/20 06/18/20 06/18/20 18:40 18:40 18:40 WBC 10.1 RBC 4.71 Hgb 14.7 Hct 42.6 MCV 90.4 MCH 31.2 MCHC 34.5 RDW Std Deviation 42.8 RDW Coeff of Vane 13.0 Plt Count 224 MPV 9.8 Immature Gran % (Auto) 0.400 Neut % (Auto) 62.4 Lymph % (Auto) 25.5 [place] % (Auto) 9.6 Eos % (Auto) 1.4 Baso % (Auto) 0.7 Absolute Neuts (auto) 6.3 Absolute Lymphs (auto) 2.58 Nucleated RBC % 0 PT 24.5 H INR 2.3 Sodium 134 L Potassium 3.9 Chloride 100 Carbon Dioxide 26.0 Anion Gap 8 BUN 17 Creatinine 1.46 H Estim Creat Clear Calc 45.06 Est GFR (MDRD) Af Amer 61 Est GFR (MDRD) Non-Af 50 L BUN/Creatinine Ratio 11.6 Glucose 109 H Calcium 8.9 Total Bilirubin 1.20 H AST 26 ALT 44 Alkaline Phosphatase 72 Troponin I < 0.015 B-Natriuretic Peptide Total Protein 7.6 Albumin 3.8 Globulin 3.8 Albumin/Globulin Ratio 1.0 Lipase 112 06/18/20 18:40 WBC RBC Hgb Hct MCV MCH MCHC RDW Std Deviation RDW Coeff of Vane Plt Count MPV Immature Gran % (Auto) Neut % (Auto) Lymph % (Auto) [place] % (Auto) Eos % (Auto) Baso % (Auto) Absolute Neuts (auto) Absolute Lymphs (auto) Nucleated RBC % PT INR Sodium Potassium Chloride Carbon Dioxide Anion Gap BUN Creatinine Estim Creat Clear Calc Est GFR (MDRD) Af Amer Est GFR (MDRD) Non-Af BUN/Creatinine Ratio Glucose Calcium Total Bilirubin AST ALT Alkaline Phosphatase Troponin I B-Natriuretic Peptide 43.2 Total Protein Albumin Globulin Albumin/Globulin Ratio Lipase Radiography Chest X-Ray - ED: 1 View, Read by ED Physician, Read by Radiologist, Unchanged, Normal, Lungs, Mediastinum, Bony Structures and Cardiomegaly Diagnostic Testing: Radiology Impression Chest X-Ray 06/18/20 18:54 IMPRESSION: No acute radiographic abnormalities. Cardiomegaly. Electronically Signed: Junior Mejia MD at 19:52 EDT Tel , Service support , Abdomen/Pelvis CT 06/18/20 19:11 IMPRESSION: No acute abnormalities in the abdomen or pelvis. Mild prostatomegaly. Recommend correlation with PSA levels. Diverticulosis. Fatty liver. Electronically Signed: Junior Mejia MD at 21:03 EDT Tel , Service support , EKG Initial EKG: Attestation: I personally reviewed and interpreted this EKG as follows: Interpretation: No Acute Injury Pattern and Paced Prior EKG tracings: available for review Prior: Unchanged Discharge Plan Triage Chief Complaint: Chest Pain ED Provider: Martin Arthur Dx/Rx/DC Orders Prescriptions: No Action Adult Probiotic 3 billion cell capsule 3,000 mmu cells PO DAILY RF: 0 furosemide 40 mg tablet 60 mg PO BID RF: 0 pantoprazole 40 mg tablet,delayed release (DR/EC) 40 mg PO BID RF: 0 magnesium oxide 400 MG tablet 400 mg PO MOWEFR RF: 0 acetaminophen 500 MG tablet 1,000 mg PO PRN PRN (Reason: Pain) RF: 0 aspirin 81 MG tablet,chewable 81 mg PO QHS RF: 0 Entresto 49-51 mg tablet 1 tab PO BID RF: 0 warfarin 7.5 mg tablet 7.5 mg PO SUMO RF: 0 warfarin 5 mg tablet 5 mg PO RF: 0 atorvastatin 40 mg tablet 40 mg PO QHS Qty: 90 RF: 3 metoprolol succinate 50 mg tablet extended release 24 hr 50 mg PO DAILY Qty: 90 RF: 3 potassium chloride 10 mEq capsule, extended release 20 meq PO BID Qty: 360 RF: 3 trazodone 50 mg tablet 50 mg PO QHS RF: 0 spironolactone 25 mg tablet 25 mg PO BID Qty: 180 RF: 3 Primary Care Provider: Lilly Starr
[2020-06-18 18:48] LABS: Absolute Lymphocyte Count 2.58 X10^3/uL (0.83-4.51); Absolute Neutrophil Count 6.3 X10^3/uL (2.0-7.7); Basophil# 0.07 X10^3/uL; Basophil% 0.7 % (0-1); Eosinophil# 0.14 X10^3/uL; Eosinophils% 1.4 % (0-5); Hematocrit 42.6 % (40-54); Hemoglobin 14.7 g/dL (13.0-16.5); Lymphocyte # 2.58 X10^3/ul (0.83-4.51); Lymphocyte % 25.5 % (19-41); Mean Corp Hgb Conc 34.5 g/dL (32-36); Mean Corpuscular Hgb 31.2 pg (27.0-32.0); Mean Corpuscular Volume 90.4 fL (80-94); Mean Platelet Vol. 9.8 fl (6.2-12.0); Monocyte# 0.97 X10^3/uL; Monocyte% 9.6 % (0-10); NRBC Flagged by Analyzer 0 % (0-5); Neutrophil # 6.33 X10^3/uL (2.7-7.7); Neutrophil % 62.4 % (47-70); Platelet Count 224 K/mm3 (150-450); RBC Distribution Width SD 42.8 fl (35.1-43.9); Red Blood Count 4.71 M/mm3 (4.6-6.2); White Blood Count 10.1 K/mm3 (4.4-11.0)
--- NOTE | 2020-06-18 18:54 | RAD_ITS ---
INDICATION: sob EXAMINATION/TECHNIQUE: X-RAY - XR Chest 1 View COMPARISON: 12/03/2018. FINDINGS: Left-sided cardiac device. The lungs are clear. The heart is enlarged. Tortuous and calcified thoracic aorta. No pleural effusion or pneumothorax. No acute osseous abnormalities. Degenerative changes of the shoulders and spine. RAD/Chest 1 View (Portable) IMPRESSION: No acute radiographic abnormalities. Cardiomegaly. Electronically Signed: Junior Mejia MD at 19:52 EDT Tel , Service support ,
[2020-06-18 18:59] LABS: International Normalized Ratio 2.3; Prothrombin Time (Protime)PT. 24.5 SECONDS (11.7-14.9)
[2020-06-18 19:07] LABS: AST(SGOT) 26 U/L (15-37); Alanine Aminotransfer ALT/SGPT 44 U/L (16-61); Albumin, Serum 3.8 g/dL (3.2-5.0); Alkaline Phosphatase 72 U/L (45-117); Anion Gap 8 (5-15); BUN 17 mg/dL (7-18); BUN/Creat Ratio 11.6 RATIO (10-20); Calcium,Total 8.9 mg/dL (8.5-10.1); Chloride 100 mmol/L (98-107); Creatinine, Serum 1.46 mg/dL (0.70-1.30); EST Glomerular Filtration Rate 50 mL/min (>60); Est Glom Filt Rate - Afr Amer 61 mL/min (>60); Estimated Creatinine Clearance 45.06 ml/min; Globulin 3.8 g/dL (2.2-4.2); Glucose 109 mg/dL (74-106); Lipase 112 U/L (73-393); Potassium 3.9 mmol/L (3.5-5.1); Protein, Total 7.6 g/dL (6.4-8.2); Sodium Level 134 mmol/L (136-145)
--- NOTE | 2020-06-18 19:11 | CT_ITS ---
INDICATION: abd pain EXAMINATION: CT Abdomen And Pelvis W/ Contrast Injection TECHNIQUE: Helically acquired images were obtained of the abdomen and pelvis after IV contrast. A radiation dose optimization technique was used for this scan. IV Contrast dosage and agent: IV 100mL Isovue-370 Oral contrast: None. COMPARISON: 12/03/2018. FINDINGS: Visualized lung bases: Bibasilar atelectasis. Liver: Scattered hepatic cysts. Decreased attenuation of the liver consistent with steatosis. Gallbladder: Surgically absent. Spleen: Unremarkable Pancreas: Unremarkable Adrenal Glands: Unremarkable Kidneys: Cortical scarring of the left kidney. Simple 1.8 cm cyst in the lower pole of the right kidney. Vasculature: Mild scattered aortoiliac atherosclerotic calcifications. GI Tract: Scattered diverticula throughout the colon without evidence of inflammation. Lymphadenopathy: None Peritoneum: No ascites. Bladder: Unremarkable Reproductive organs: The prostate is mildly enlarged and contains several calcifications.. Bones/Soft tissues: There are diffuse degenerative changes of the spine. CT/Abdomen/Pelvis W IV Cont ONLY IMPRESSION: No acute abnormalities in the abdomen or pelvis. Mild prostatomegaly. Recommend correlation with PSA levels. Diverticulosis. Fatty liver. Electronically Signed: Junior Mejia MD at 21:03 EDT Tel , Service support ,
[2020-06-18 20:40] LABS: BNP,B-Type NATRIURETIC PEPTIDE 43.2 pg/mL (0-100)
--- NOTE | 2020-06-18 21:50 | HP.PCM_ITS ---
HPI - General HPI Narrative LIZBETH CARRINGTON, is a 75 M who presents to the emergency room with chief complaint of chest pain. Onset of chest pain began the past 3 days and has waxed and waned, the pain does not radiate to his arm or shoulder or jaw but does radiate to his right upper abdomen. He does admit this feels similar to previous ID that he had. Patient does have a history of a stent and an ICD/pacemaker for his history with ventricular tachycardia. Currently the pain is resolved ,however, due to his extensive cardiac history I was asked to admit the patient for observation prior to discharging him home. [facility] Medical History Atherosclerotic heart disease of [place] coronary artery without angina pectoris Atrial fibrillation Chronic systolic (congestive) heart failure CVA (cerebral vascular accident) Essential hypertension Ischemic cardiomyopathy FPC (current) use of anticoagulants Mixed hyperlipidemia Presence of stent in coronary artery (~02/21/13) Home Medications magnesium oxide 400 mg PO MOWEFR 05/15/16 [History Last Taken Unknown] acetaminophen 1,000 mg PO PRN PRN 08/22/17 [History Last Taken Unknown] aspirin 81 mg PO QHS 08/22/17 [History Last Taken 08/22/17] lactobacillus combination no.8 3 billion cell capsule 3,000 mmu cells PO DAILY 09/02/19 [History Last Taken Unknown] atorvastatin 40 mg tablet 40 mg PO QHS #90 tab 03/15/20 [Rx Last Taken Unknown] metoprolol succinate 50 mg tablet,extended release 24 hr 50 mg PO DAILY #90 tab 03/15/20 [Rx Last Taken Unknown] potassium chloride 10 mEq capsule,extended release 20 meq PO BID #360 cap 03/15/20 [Rx Last Taken Unknown] furosemide 40 mg tablet 60 mg PO BID tab 04/18/20 [History Last Taken Unknown] pantoprazole 40 mg tablet,delayed release 40 mg PO BID tab 04/18/20 [History [place] st Taken Unknown] trazodone 50 mg tablet 50 mg PO QHS 04/18/20 [History Last Taken Unknown] spironolactone 25 mg tablet 25 mg PO BID #180 tablet 05/14/20 [Rx Last Taken Unknown] sacubitril-valsartan [Entresto] 1 tab PO BID 06/18/20 [History Last Taken Unknown] warfarin 5 mg PO 06/18/20 [History Last Taken Unknown] warfarin 7.5 mg PO SUMO 06/18/20 [History Last Taken Unknown] Allergy/AdvReac Type Severity Reaction Status Date / Time gemfibrozil Allergy Intermediate upset Verified 06/18/20 18:23 stomach; constipation amiodarone AdvReac 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 esomeprazole magnesium AdvReac Diarrhea Verified 06/18/20 18:23 [From Nexium] Family History Mother CVA (cerebral vascular accident) Grandfather Heart disease Father Cancer testicular Sister Cancer Breast Surgical History History of cardiac radiofrequency ablation History of cholecystectomy Presence of coronary angioplasty implant and graft (~02/21/13) Presence of implantable cardioverter-defibrillator (ICD) (~06/21/13) Social History Smoking Status: Former smoker alcohol intake: never substance use type: does not use ROS Constitutional Constitutional: Denies chills or fever(s) Eyes Eyes: Denies change in vision ENT HEENT: Denies abnormal hearing Cardiovascular Cardiovascular: Reports chest pain Respiratory/Chest Respiratory/Chest: Denies cough or wheezing Gastrointestinal Gastrointestinal: Reports abdominal pain Genitourinary Genitourinary: Denies dysuria Musculoskeletal Musculoskeletal: Denies back pain Vital Signs Vital Signs Vital Signs: 06/18/20 18:23 06/18/20 18:30 06/18/20 18:32 Temperature 97.6 F L Temperature Source Temporal Pulse Rate 71 71 Respiratory Rate 16 14 Respiratory Effort Normal Non-Labored Blood Pressure 116/77 126/76 H Blood Pressure Mean 90 92 Pulse Ox 96 96 Oxygen Delivery Method Room Air Room Air 06/18/20 20:03 06/18/20 21:04 06/18/20 21:41 Temperature 97.6 F L Temperature Source Temporal Pulse Rate 60 60 60 Respiratory Rate 18 18 18 Respiratory Effort Blood Pressure 146/72 H 92/60 92/60 Blood Pressure Mean 96 70 70 Pulse Ox 99 98 96 Oxygen Delivery Method Room Air Room Air Room Air Physical Exam Const oriented x3 and no apparent distress General Appearance: cooperative HEENT normocephalic and head/scalp atraumatic Eyes PERRL Neck supple Lymph Lymphatic: no lymphadenopathy noted Resp normal respiratory effort, normal air movement and clear to auscultation bilaterally Cardio regular rate, regular rhythm, S1 normal heart sound and S2 normal heart sound GI normal to inspection, nondistended, normoactive bowel sounds Skin General Skin Exam: turgor normal Neuro CN's II-XII intact bilaterally Psych affect normal Appearance: appropriate Lab / Micro Data Result Diagrams: 06/18/20 18:40 06/18/20 18:40 Labs: Laboratory Results - last 24 hr 06/18/20 06/18/20 06/18/20 18:40 18:40 18:40 WBC 10.1 RBC 4.71 Hgb 14.7 Hct 42.6 MCV 90.4 MCH 31.2 MCHC 34.5 RDW Std Deviation 42.8 RDW Coeff of Vane 13.0 Plt Count 224 MPV 9.8 Immature Gran % (Auto) 0.400 Neut % (Auto) 62.4 Lymph % (Auto) 25.5 [place] % (Auto) 9.6 Eos % (Auto) 1.4 Baso % (Auto) 0.7 Absolute Neuts (auto) 6.3 Absolute Lymphs (auto) 2.58 Nucleated RBC % 0 PT 24.5 H INR 2.3 Sodium 134 L Potassium 3.9 Chloride 100 Carbon Dioxide 26.0 Anion Gap 8 BUN 17 Creatinine 1.46 H Estim Creat Clear Calc 45.06 Est GFR (MDRD) Af Amer 61 Est GFR (MDRD) Non-Af 50 L BUN/Creatinine Ratio 11.6 Glucose 109 H Calcium 8.9 Total Bilirubin 1.20 H AST 26 ALT 44 Alkaline Phosphatase 72 Troponin I < 0.015 B-Natriuretic Peptide Total Protein 7.6 Albumin 3.8 Globulin 3.8 Albumin/Globulin Ratio 1.0 Lipase 112 06/18/20 18:40 WBC RBC Hgb Hct MCV MCH MCHC RDW Std Deviation RDW Coeff of Vane Plt Count MPV Immature Gran % (Auto) Neut % (Auto) Lymph % (Auto) [place] % (Auto) Eos % (Auto) Baso % (Auto) Absolute Neuts (auto) Absolute Lymphs (auto) Nucleated RBC % PT INR Sodium Potassium Chloride Carbon Dioxide Anion Gap BUN Creatinine Estim Creat Clear Calc Est GFR (MDRD) Af Amer Est GFR (MDRD) Non-Af BUN/Creatinine Ratio Glucose Calcium Total Bilirubin AST ALT Alkaline Phosphatase Troponin I B-Natriuretic Peptide 43.2 Total Protein Albumin Globulin Albumin/Globulin Ratio Lipase Radiology Impression Chest X-Ray 06/18/20 18:54 IMPRESSION: No acute radiographic abnormalities. Cardiomegaly. Electronically Signed: Junoir Mejia MD at 19:52 EDT Tel , Service support , Abdomen/Pelvis CT 06/18/20 19:11 IMPRESSION: No acute abnormalities in the abdomen or pelvis. Mild prostatomegaly. Recommend correlation with PSA levels. Diverticulosis. Fatty liver. 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 transplanted heart: [place] heart Qualified Code(s): I25.10 - Atherosclerotic heart disease of [place] coronary artery without angina pectoris (8) Essential hypertension: PLAN: Plan 1. Chest pain?admit patient to progressive care unit, cycle cardiac enzymes, oxygen as needed per routine. Plan on discharging patient in morning if cardiac enzymes are negative x3 2. DVT prophylaxis patient is anticoagulated 3. Hyperlipidemia?continue statin medication 4. Hypertension?continue home medications for control 5. Abdominal pain CT was within normal limits and pain is resolved. There is mention in the report of outpatient work-up of prostate Visit Charges OBSV E&M: [id number] Initial observation care L2
--- NOTE | 2020-06-18 23:21 | EKG12_ITS ---
Test Reason : CP ADMISSION Blood Pressure : / mmHG Vent. Rate : 061 BPM Atrial Rate : 061 BPM P-R Int : 174 ms QRS Dur : 094 ms QT Int : 438 ms P-R-T Axes : 059 -49 002 degrees QTc Int : 440 ms Normal sinus rhythm Left axis deviation Low voltage QRS Inferior infarct , age undetermined Anterolateral infarct , age undetermined Abnormal ECG Confirmed by JAVI TRAVIS, FABBY ([id number]), newspaper copy editor FIDENCIO DYER ([id number]) on 06/20/2020 9:20:29 AM Referred By: EFREN Confirmed By:FABBY CALDWELL MD
[2020-06-18] MEDS: Potassium Chloride Oral Tablet 20 MEQ PO (23:22)
[2020-06-18] MEDS: Aspirin 81 MG TAB.CHEW PO (23:22)
[2020-06-18] MEDS: SACUBITRIL/VALSARTAN 49-51 MG TABLET 1 EACH PO (23:22)
[2020-06-18] MEDS: Pantoprazole Sodium 40 MG Tablet PO (23:22)
[2020-06-18] MEDS: traZODone 50 MG Tablet PO (23:22)
[2020-06-18] MEDS: Spironolactone 25 MG Tablet PO (23:23)
[2020-06-19] VITALS (8 sets, daily range): BP systolic 94–101; BP diastolic 52–60; PULSE 60–63; RESP 17–18; TEMP 36.4–36.7; O2SAT 93–97
--- NOTE | 2020-06-19 01:00 | NURSING ---
Gave handoff to Chelsea Claros RN at this time. Ruthy RN
[2020-06-19 05:07] LABS: Hemoglobin 13.6 g/dL (13.0-16.5); Mean Corpuscular Hgb 31.3 pg (27.0-32.0); Mean Corpuscular Volume 92.2 fL (80-94); Platelet Count 196 K/mm3 (150-450); RBC Distribution Width SD 43.8 fl (35.1-43.9); Red Blood Count 4.34 M/mm3 (4.6-6.2); White Blood Count 9.4 K/mm3 (4.4-11.0)
[2020-06-19 05:27] LABS: International Normalized Ratio 2.3; Prothrombin Time (Protime)PT. 24.4 SECONDS (11.7-14.9)
[2020-06-19 05:28] LABS: ALB/GLOB Ratio 1.1 RATIO (0.9-2.4); AST(SGOT) 24 U/L (15-37); Alanine Aminotransfer ALT/SGPT 38 U/L (16-61); Albumin, Serum 3.3 g/dL (3.2-5.0); Alkaline Phosphatase 62 U/L (45-117); Anion Gap 6 (5-15); BUN 18 mg/dL (7-18); BUN/Creat Ratio 14.4 RATIO (10-20); Calcium,Total 8.4 mg/dL (8.5-10.1); Chloride 101 mmol/L (98-107); Cholesterol 144 mg/dL (200); Creatinine, Serum 1.25 mg/dL (0.70-1.30); EST Glomerular Filtration Rate 60 mL/min (>60); Est Glom Filt Rate - Afr Amer 73 mL/min (>60); Estimated Creatinine Clearance 52.63 ml/min; Glucose 122 mg/dL (74-106); High Density Lipoprotein 38 mg/dL; Potassium 4.1 mmol/L (3.5-5.1); Protein, Total 6.3 g/dL (6.4-8.2); Sodium Level 137 mmol/L (136-145); Triglycerides 330 mg/dL; Very Low Density Lipoprotein 66 mg/dL (5-40)
[2020-06-19] MEDS: Furosemide 20 MG Tablet 60 MG PO (09:42)
[2020-06-19] MEDS: Pantoprazole Sodium 40 MG Tablet PO (09:42)
[2020-06-19] MEDS: Spironolactone 25 MG Tablet PO (09:42)
[2020-06-19] MEDS: SACUBITRIL/VALSARTAN 49-51 MG TABLET 1 EACH PO (09:43)
[2020-06-19] MEDS: Potassium Chloride Oral Tablet 20 MEQ PO (09:45)
--- NOTE | 2020-06-19 13:08 | STRESSREP_ITS ---
Stress Test Report Date: 06-19-2020 Procedure: Pharmacologic stress nuclear imaging study Indications: Chest pain; CAD; PCI; ICD Consent: Per the patient Procedure: The patient underwent pharmacologic (Regadenoson 0.4mg ) evaluation with a peak heart rate of 82 beats per minute (55%predicted maximal heart rate) and a peak blood pressure of 106/63 mmHg. The baseline ECG demonstrated sinus rhythm; low voltage QRS; anterolateral NC of indeterminate age cannot be excluded. The peak pharmacologic ECG demonstrated no obvious ECG changes. There were no cardiac dysrhythmias pretest, during pharmacologic infusion, or recovery. There was chest discomfort in recovery with spontaneous resolution in recovery. The examination was discontinued secondary to completion of protocol. Impression: 1. Pharmacologic (Regadenoson) evaluation 2. Peak pharmacologic ECG with no obvious ECG changes. 3. There were no cardiac dysrhythmias pretest, during pharmacologic infusion, or recovery. 4. Nuclear images pending Myocardial perfusion imaging study: Technique: The patient was injected with 14.9 millicuries of technetium 99m Cardiolite and subsequently rest SPECT Cardiolite nuclear imaging was obtained in the horizontal long, vertical long, and short axis views. The patient underwent pharmacologic (Regadenoson) evaluation with a peak heart rate of 82 beats per minute (55% percent predicted maximal heart rate) and a peak blood pressure of 106/63 mmHg. The patient was injected with 44.2 millicuries of technetium 99m Cardiolite and subsequently stress SPECT Cardiolite nuclear imaging was obtained in the horizontal long, vertical long, and short axis views. A gated Cardiolite study at peak stress was obtained. Interpretation: Rest and stress SPECT Cardiolite nuclear imaging status post realignment, normalization, and attenuation correction demonstrate at rest the appearance of diminished tracer uptake in portions of the distal anteroseptal segments which appears to improve and/or normalize following stress as well as at both rest and stress areas of absence of myocardial perfusion/tracer uptake in portions of the basal to distal lateral segments, mid to distal inferolateral segments, as well as portions of the apical segments without significant change. There is diminished end systolic thickening and brightening. The gated Cardiolite study demonstrates diminished myocardial thickening and inward wall motion. The reported LVEF is 25%. Impression: 1. Rest and stress myocardial nuclear imaging demonstrate myocardial perfusion changes appearing compatible with combination of shifting soft tissue attenuation/artifact being more prominent at rest as opposed to stress as well as myocardial perfusion changes compatible with previous myocardial injury/infarction involving portions, inferolateral, and apical segments with no myocardial perfusion changes considered diagnostic for associated stress-induced myocardial ischemia. 2. The gated Cardiolite study reports an LVEF of 25%. This note was generated with [employer] software. It may contain incorrect words, spelling, and punctuation that were not noted in checking the note before signing.
--- NOTE | 2020-06-19 13:35 | PCM.DC ---
Discharge Instructions Diet Discharge Diet: Low fat / Low cholesterol, 8 Cup Fluid Restriction and 2000 mg Sodium Diet Activity Discharge Activity: Return to Normal Activity Dressing / Incision Call your doctor if you observe: Shortness of breath, Dizziness and Chest pain Follow Up Care Test Results: Test results from this visit will be discussed in further detail at your follow-up appointment, if applicable. Discharge Plan Admission Admit Date/Time: 06/18/20 22:04 Primary Reason for Your Visit: Chest pain Attending Provider: Thee Quintero Primary Care Provider: Lilly Starr Discharge Orders/Prescriptions Prescriptions: Continued Adult Probiotic 3 billion cell capsule 3,000 mmu cells PO DAILY RF: 0 furosemide 40 mg tablet 60 mg PO BID RF: 0 pantoprazole 40 mg tablet,delayed release (DR/EC) 40 mg PO BID RF: 0 magnesium oxide 400 MG tablet 400 mg PO MOWEFR RF: 0 acetaminophen 500 MG tablet 1,000 mg PO PRN PRN (Reason: Pain) RF: 0 aspirin 81 MG tablet,chewable 81 mg PO QHS RF: 0 Entresto 49-51 mg tablet 1 tab PO BID RF: 0 warfarin 7.5 mg tablet 7.5 mg PO SUMO RF: 0 warfarin 5 mg tablet 5 mg PO TUWETHFR RF: 0 atorvastatin 40 mg tablet 40 mg PO QHS Qty: 90 RF: 3 metoprolol succinate 50 mg tablet extended release 24 hr 50 mg PO DAILY Qty: 90 RF: 3 potassium chloride 10 mEq capsule, extended release 20 meq PO BID Qty: 360 RF: 3 trazodone 50 mg tablet 50 mg PO QHS RF: 0 spironolactone 25 mg tablet 25 mg PO BID Qty: 180 RF: 3 Referrals / Follow Up: Lilly Starr MD [Primary Care Provider] - In 1 Week Brina Solis PA [PHYSICIAN MERCHANDISE BUYER] - Within 2 Weeks Disposition Disposition (needs filled in before D/C Order can be placed): Home, self care
[2020-06-19] MEDS: Metoprolol(XL)Succ 50 MG Tablet PO (13:36)
[2020-06-19] MEDS: Acetaminophen 500 MG Tablet 1000 MG PO (13:37)
--- NOTE | 2020-06-19 13:47 | PHA.DC.MR ---
Pharmacy Service has performed discharge medication reconciliation for this patient. The patient's discharge medication list was reviewed for discrepancies and discrepancies were resolved. Home Medications magnesium oxide 400 mg PO MOWEFR 05/15/16 acetaminophen 1,000 mg PO PRN PRN 08/22/17 aspirin 81 mg PO QHS 08/22/17 lactobacillus combination no.8 3 billion cell capsule 3,000 mmu cells PO DAILY 09/02/19 atorvastatin 40 mg tablet 40 mg PO QHS #90 tab 03/15/20 metoprolol succinate 50 mg tablet,extended release 24 hr 50 mg PO DAILY #90 tab 03/15/20 potassium chloride 10 mEq capsule,extended release 20 meq PO BID #360 cap 03/15/20 furosemide 40 mg tablet 60 mg PO BID tab 04/18/20 pantoprazole 40 mg tablet,delayed release 40 mg PO BID tab 04/18/20 trazodone 50 mg tablet 50 mg PO QHS 04/18/20 spironolactone 25 mg tablet 25 mg PO BID #180 tablet 05/14/20 Entresto 1 tab PO BID 06/18/20 warfarin 5 mg PO TUWETHFRSA 06/18/20 warfarin 7.5 mg PO SUMO 06/18/20
--- NOTE | 2020-06-19 14:05 | DS.PCM_ITS ---
Documented by User: Abbie Gomez NP, MEDICAL RADIATION TECH-C 06/19/20 17:18 Providers Date of Admission: 06/18/20 Primary Care Physician: Dr. 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 Code(s): Z79.01 - residential (current) use of anticoagulants (3) Presence of stent in coronary artery: Status: Chronic Code(s): Z95.5 - Presence of coronary angioplasty implant and graft (4) History of cardiac radiofrequency ablation: Status: Resolved Code(s): Z98.890 - Other specified postprocedural states (5) Presence of implantable cardioverter-defibrillator (ICD): Status: Chronic Code(s): Z95.810 - Presence of automatic (implantable) cardiac defibrillator (6) Mixed hyperlipidemia: Status: Chronic Code(s): E78.2 - Mixed hyperlipidemia (7) Atherosclerotic heart disease of [place] coronary artery without angina pectoris: Status: Chronic Code(s): I25.10 - Atherosclerotic heart disease of [place] coronary artery without angina pectoris Qualifiers: [place] vs. transplanted heart: [place] heart Qualified Code(s): I25.10 - Atherosclerotic heart disease of [place] coronary artery without angina pectoris (8) Essential hypertension: Status: Chronic Code(s): I10 - Essential (primary) hypertension Medications at Discharge Home Medications magnesium oxide 400 mg PO MOWEFR 05/15/16 acetaminophen 1,000 mg PO PRN PRN 08/22/17 aspirin 81 mg PO QHS 08/22/17 lactobacillus combination no.8 3 billion cell capsule 3,000 mmu cells PO DAILY 09/02/19 atorvastatin 40 mg tablet 40 mg PO QHS #90 tab 03/15/20 metoprolol succinate 50 mg tablet,extended release 24 hr 50 mg PO DAILY #90 tab 03/15/20 potassium chloride 10 mEq capsule,extended release 20 meq PO BID #360 cap 03/15/20 furosemide 40 mg tablet 60 mg PO BID tab 04/18/20 pantoprazole 40 mg tablet,delayed release 40 mg PO BID tab 04/18/20 trazodone 50 mg tablet 50 mg PO QHS 03/10/21 spironolactone 25 mg tablet 25 mg PO BID #180 tablet 05/14/20 Entresto 1 tab PO BID 06/18/20 warfarin 5 mg PO TUWETHFRSA 06/18/20 warfarin 7.5 mg PO SUMO 06/18/20 Hospital Course Operations None Procedures Nuclear stress test Summary of Care Provided Minutes Spent on Discharge: 35 Hospital Course: Patient is a 75-year-old male admitted 06/18/20 due to chest pain. 1. Chest pain- ACS ruled out. Troponin negative. EKG without ST-T changes. Patient underwent nuclear stress test which was negative for ischemia. C ompatible with previous myocardial injury. LVEF 25%. Recent echocardiogram 05/08/2020 demonstrated an EF of 20%. Continue medical management. Follow-up with cardiology in 2 weeks. 2. CAD, history of PCI/ischemic cardiomyopathy/chronic heart failure with reduced ejection fraction/status post ICD placement-continue medical management as noted above. Outpatient cardiology follow-up. 3. Atrial fibrillation-on Coumadin, metoprolol. 4. History of CVA-on aspirin, statin, warfarin. Patient seen and examined prior to discharge. Physical assessment as noted below. Patient is stable for discharge with follow up recommendations as noted above. This patient was seen by PHILLY Stuart under the supervision of Dr. Quintero. Physical Exam Const alert, oriented x3 and no apparent distress Orientation / Consciousness: awake, oriented to person, oriented to place and oriented to time HEENT normocephalic and moist oral mucous membranes Eyes PERRL, EOMs intact bilaterally and conjunctivae normal Neck no lymphadenopathy Resp normal respiratory effort and clear to auscultation bilaterally Cardio regular rate, regular rhythm and no murmurs Peripheral Pulses: pulses 2+ throughout GI normal to inspection, nondistended, normoactive bowel sounds, non-tender and non-distended Extremity normal to inspection Skin no rashes or lesions noted Lesions: no lesions Rashes: no rashes Trauma: no lacerations or abrasions Neuro oriented x3 Sensorium / Orientation: awake and alert Psych affect normal ABG / Lab / Microbiology Data Result Diagrams: 06/19/20 04:50 06/19/20 04:50 Laboratory: Laboratory Results - last 24 hr 06/18/20 06/18/20 06/18/20 18:40 18:40 18:40 WBC 10.1 RBC 4.71 Hgb 14.7 Hct 42.6 MCV 90.4 MCH 31.2 MCHC 34.5 RDW Std Deviation 42.8 RDW Coeff of Vnae 13.0 Plt Count 224 MPV 9.8 Immature Gran % (Auto) 0.400 Neut % (Auto) 62.4 Lymph % (Auto) 25.5 Graves % (Auto) 9.6 Eos % (Auto) 1.4 Baso % (Auto) 0.7 Absolute Neuts (auto) 6.3 Absolute Lymphs (auto) 2.58 Nucleated RBC % 0 PT 24.5 H INR 2.3 Sodium 134 L Potassium 3.9 Chloride 100 Carbon Dioxide 26.0 Anion Gap 8 BUN 17 Creatinine 1.46 H Estim Creat Clear Calc 45.06 Est GFR (MDRD) Af Amer 61 Est GFR (MDRD) Non-Af 50 L BUN/Creatinine Ratio 11.6 Glucose 109 H Calcium 8.9 Total Bilirubin 1.20 H AST 26 ALT 44 Alkaline Phosphatase 72 Troponin I < 0.015 B-Natriuretic Peptide Total Protein 7.6 Albumin 3.8 Globulin 3.8 Albumin/Globulin Ratio 1.0 Triglycerides Cholesterol LDL Cholesterol VLDL Cholesterol HDL Cholesterol Lipase 112 06/18/20 06/18/20 06/19/20 18:40 23:00 01:45 WBC RBC Hgb Hct MCV MCH MCHC RDW Std Deviation RDW Coeff of Vane Plt Count MPV Immature Gran % (Auto) Neut % (Auto) Lymph % (Auto) Graves % (Auto) Eos % (Auto) Baso % (Auto) Absolute Neuts (auto) Absolute Lymphs (auto) Nucleated RBC % PT INR Sodium Potassium Chloride Carbon Dioxide Anion Gap BUN Creatinine Estim Creat Clear Calc Est GFR (MDRD) Af Amer Est GFR (MDRD) Non-Af BUN/Creatinine Ratio Glucose Calcium Total Bilirubin AST ALT Alkaline Phosphatase Troponin I < 0.015 < 0.015 B-Natriuretic Peptide 43.2 Total Protein Albumin Globulin Albumin/Globulin Ratio Triglycerides Cholesterol LDL Cholesterol VLDL Cholesterol HDL Cholesterol Lipase 06/19/20 06/19/20 06/19/20 04:50 04:50 04:50 WBC 9.4 RBC 4.34 L Hgb 13.6 Hct 40.0 MCV 92.2 MCH 31.3 MCHC 34.0 RDW Std Deviation 43.8 RDW Coeff of Vane 13.0 Plt Count 196 MPV 10.0 Immature Gran % (Auto) Neut % (Auto) Lymph % (Auto) Graves % (Auto) Eos % (Auto) Baso % (Auto) Absolute Neuts (auto) Absolute Lymphs (auto) Nucleated RBC % PT 24.4 H INR 2.3 Sodium 137 Potassium 4.1 Chloride 101 Carbon Dioxide 30.0 Anion Gap 6 BUN 18 Creatinine 1.25 Estim Creat Clear Calc 52.63 Est GFR (MDRD) Af Amer 73 Est GFR (MDRD) Non-Af 60 BUN/Creatinine Ratio 14.4 Glucose 122 H Calcium 8.4 L Total Bilirubin 1.20 H AST 24 ALT 38 Alkaline Phosphatase 62 Troponin I B-Natriuretic Peptide Total Protein 6.3 L Albumin 3.3 Globulin 3.0 Albumin/Globulin Ratio 1.1 Triglycerides 330 H Cholesterol 144 LDL Cholesterol 40 VLDL Cholesterol 66 H HDL Cholesterol 38 L Lipase 06/19/20 04:50 WBC RBC Hgb Hct MCV MCH MCHC RDW Std Deviation RDW Coeff of Vane Plt Count MPV Immature Gran % (Auto) Neut % (Auto) Lymph % (Auto) Graves % (Auto) Eos % (Auto) Baso % (Auto) Absolute Neuts (auto) Absolute Lymphs (auto) Nucleated RBC % PT INR Sodium Potassium Chloride Carbon Dioxide Anion Gap BUN Creatinine Estim Creat Clear Calc Est GFR (MDRD) Af Amer Est GFR (MDRD) Non-Af BUN/Creatinine Ratio Glucose Calcium Total Bilirubin AST ALT Alkaline Phosphatase Troponin I < 0.015 B-Natriuretic Peptide Total Protein Albumin Globulin Albumin/Globulin Ratio Triglycerides Cholesterol LDL Cholesterol VLDL Cholesterol HDL Cholesterol Lipase Radiography Diagnostic Testing: Radiology Impression Chest X-Ray 06/18/20 18:54 IMPRESSION: No acute radiographic abnormalities. Cardiomegaly. Electronically Signed: Junior Mejia MD at 19:52 EDT Tel , Service support , Abdomen/Pelvis CT 06/18/20 19:11 IMPRESSION: No acute abnormalities in the abdomen or pelvis. Mild prostatomegaly. Recommend correlation with PSA levels. Diverticulosis. Fatty liver. Electronically Signed: Junior Mejia MD at 21:03 EDT Tel , Service support , D/C Instructions Discharge Diet: Low fat / Low cholesterol, 8 Cup Fluid Restriction and 2000 mg Sodium Diet Discharge Activity: Return to Normal Activity Call your doctor if you observe: Shortness of breath, Dizziness and Chest pain Meaningful Use Info Meaningful Use Diagnoses (Choose all that apply): None applicable Discharge Plan Admission Admit Date/Time: 06/18/20 22:04 Primary Reason for Your Visit: Chest pain Attending Provider: Thee Quintero Primary Care Provider: Lilly Starr Instructions Additional Instructions / Restrictions: Patient Problems: Altered Health Status related to Hospitalization Patient Goals: *Optimal Level of Health *Keep Appointments *Medication Compliance *Remain Safe Discharge Orders/Prescriptions Prescriptions: Continued Adult Probiotic 3 billion cell capsule 3,000 mmu cells PO DAILY RF: 0 furosemide 40 mg tablet 60 mg PO BID RF: 0 pantoprazole 40 mg tablet,delayed release (DR/EC) 40 mg PO BID RF: 0 magnesium oxide 400 MG tablet 400 mg PO MOWEFR RF: 0 acetaminophen 500 MG tablet 1,000 mg PO PRN PRN (Reason: Pain) RF: 0 aspirin 81 MG tablet,chewable 81 mg PO QHS RF: 0 Entresto 49-51 mg tablet 1 tab PO BID RF: 0 warfarin 7.5 mg tablet 7.5 mg PO SUMO RF: 0 warfarin 5 mg tablet 5 mg PO TUWETHFRSA RF: 0 atorvastatin 40 mg tablet 40 mg PO QHS Qty: 90 RF: 3 metoprolol succinate 50 mg tablet extended release 24 hr 50 mg PO DAILY Qty: 90 RF: 3 potassium chloride 10 mEq capsule, extended release 20 meq PO BID Qty: 360 RF: 3 trazodone 50 mg tablet 50 mg PO QHS RF: 0 spironolactone 25 mg tablet 25 mg PO BID Qty: 180 RF: 3 Referrals / Follow Up: Lilly Starr MD [Primary Care Provider] - In 1 Week Brina Solis PA [PHYSICIAN ONLINE MARKETING ANALYST] - Within 2 Weeks Disposition Disposition (needs filled in before D/C Order can be placed): Home, self care Documented by User: Dr. Thee Quintero DO 06/19/20 17:21 Providers Date of Admission: 06/18/20 Reason For Visit: CHEST PAIN Medications at Discharge Home Medications magnesium oxide 400 mg PO MOWEFR 05/15/16 acetaminophen 1,000 mg PO PRN PRN 08/22/17 aspirin 81 mg PO QHS 08/22/17 lactobacillus combination no.8 3 billion cell capsule 3,000 mmu cells PO DAILY 09/02/19 atorvastatin 40 mg tablet 40 mg PO QHS #90 tab 03/15/20 metoprolol succinate 50 mg tablet,extended release 24 hr 50 mg PO DAILY #90 tab 03/15/20 potassium chloride 10 mEq capsule,extended release 20 meq PO BID #360 cap 03/15/20 furosemide 40 mg tablet 60 mg PO BID tab 04/18/20 pantoprazole 40 mg tablet,delayed release 40 mg PO BID tab 04/18/20 trazodone 50 mg tablet 50 mg PO QHS 04/18/20 spironolactone 25 mg tablet 25 mg PO BID #180 tablet 05/14/20 Entresto 1 tab PO BID 06/18/20 warfarin 5 mg PO TUWETHFRSA 06/18/20 warfarin 7.5 mg PO SUMO 06/18/20 ABG / Lab / Microbiology Data Result Diagrams: 06/19/20 04:50 06/19/20 04:50 Discharge Plan Admission Admit Date/Time: 06/18/20 22:04 Primary Reason for Your Visit: Chest pain Attending Provider: Thee Quintero Primary Care Provider: Lilly Starr Instructions Additional Instructions / Restrictions: Patient Problems: Altered Health Status related to Hospitalization Patient Goals: *Optimal Level of Health *Keep Appointments *Medication Compliance *Remain Safe Discharge Orders/Prescriptions Prescriptions: Continued Adult Probiotic 3 billion cell capsule 3,000 mmu cells PO DAILY RF: 0 furosemide 40 mg tablet 60 mg PO BID RF: 0 pantoprazole 40 mg tablet,delayed release (DR/EC) 40 mg PO BID RF: 0 magnesium oxide 400 MG tablet 400 mg PO MOWEFR RF: 0 acetaminophen 500 MG tablet 1,000 mg PO PRN PRN (Reason: Pain) RF: 0 aspirin 81 MG tablet,chewable 81 mg PO QHS RF: 0 Entresto 49-51 mg tablet 1 tab PO BID RF: 0 warfarin 7.5 mg tablet 7.5 mg PO SUMO RF: 0 warfarin 5 mg tablet 5 mg PO RF: 0 atorvastatin 40 mg tablet 40 mg PO QHS Qty: 90 RF: 3 metoprolol succinate 50 mg tablet extended release 24 hr 50 mg PO DAILY Qty: 90 RF: 3 potassium chloride 10 mEq capsule, extended release 20 meq PO BID Qty: 360 RF: 3 trazodone 50 mg tablet 50 mg PO QHS RF: 0 spironolactone 25 mg tablet 25 mg PO BID Qty: 180 RF: 3 Referrals / Follow Up: Lilly Starr MD [Primary Care Provider] - In 1 Week Brina Solis PA [PHYSICIAN ONLINE MARKETING ANALYST] - Within 2 Weeks Disposition Disposition (needs filled in before D/C Order can be placed): Home, self care
== END 2020-06-19 13:37 | disposition home or self-care (01) ==
LOC: ED 19:10 → PCU 22:40
PROVIDERS: Admitting Provider Family Medicine; Emergency Provider Emergency Medicine; PCP Internal Medicine
DX: R07.89 Other chest pain (principal); R10.13 Epigastric pain; I48.0 Paroxysmal atrial fibrillation; I25.10 Atherosclerotic heart disease of native coronary artery without angina pectoris; I11.0 Hypertensive heart disease with heart failure; I50.22 Chronic systolic (congestive) heart failure; I25.5 Ischemic cardiomyopathy; E78.2 Mixed hyperlipidemia; R11.0 Nausea; I25.2 Old myocardial infarction; Z79.01 Long term (current) use of anticoagulants; Z95.5 Presence of coronary angioplasty implant and graft; Z95.810 Presence of automatic (implantable) cardiac defibrillator; Z79.899 Other long term (current) drug therapy; Z79.82 Long term (current) use of aspirin; Z87.891 Personal history of nicotine dependence; Z86.73 Personal history of transient ischemic attack (TIA), and cerebral infarction without residual deficits
CPT/HCPCS: 36415; 71045; 74177; 78452; 80053; 80061; 83690; 83880; 84484; 85025; 85027; 85610; 93005; 93017; 99218; 99285; A9500; J7030; Q9967; A4216; G0378; J2405; J2785

== ENCOUNTER 2020-10-07 18:56 | Emergency (ER) | payer MEDICARE, SELFPAY ==
[2020-10-07 18:57] VITALS: BP 124/66; PULSE 63; RESP 15; TEMP 36.9; O2SAT 97; BMI 34.0
--- NOTE | 2020-10-07 19:56 | ED.VIS.BACK ---
HPI History of Present Illness Chief Complaint: Back Narrative Narrative: 75-year-old male presenting with lumbar back pain he states on the right lumbar paraspinal musculature. He states he sustained an injury about 5 days ago while twisting and wiping after defecating. He states that he has progressively had worsening pain. He denies loss of bladder or bowel control. He denies urinary retention. He states he is eating and drinking normally. He states he takes Flexeril and trazodone but does not like to take them together because they make him too sleepy so he is not taking either. Patient states he previously has had back problems since he was a kid and he states he had a broken back at that time. He is intermittently had back issues in which he does physical therapy. He has been trying to do exercises but is not able to given the acute nature of his pain. He also complains of history of compression fracture. [facility] Medical History Atherosclerotic heart disease of [place] coronary artery without angina pectoris Atrial fibrillation Chronic systolic (congestive) heart failure CVA (cerebral vascular accident) Essential hypertension Ischemic cardiomyopathy correction (current) use of anticoagulants Mixed hyperlipidemia Presence of stent in coronary artery (~02/21/13) Home Medications magnesium oxide 400 mg PO MOWEFR 05/15/16 [History Last Taken 06/18/20] acetaminophen 1,000 mg PO PRN PRN 08/22/17 [History Last Taken Unknown] aspirin 81 mg PO QHS 08/22/17 [History Last Taken 06/17/20] lactobacillus combination no.8 3 billion cell capsule 3,000 mmu cells PO DAILY 09/02/19 [History Last Taken Unknown] atorvastatin 40 mg tablet 40 mg PO QHS #90 tab 03/15/20 [Rx Last Taken 06/18/20] potassium chloride 10 mEq capsule,extended release 20 meq PO BID #360 cap 03/15/20 [Rx Last Taken 06/18/20] furosemide 40 mg tablet 60 mg PO BID tab 04/18/20 [History Last Taken 06/18/20] pantoprazole 40 mg tablet,delayed release 40 mg PO BID tab 04/18/20 [History Last Taken 06/18/20] trazodone 50 mg tablet 50 mg PO QHS 04/18/20 [History Last Taken 06/17/20] spironolactone 25 mg tablet 25 mg PO BID #180 tablet 05/14/20 [Rx Last Taken 06/18/20] Entresto 1 tab PO BID 06/18/20 [History Last Taken 06/18/20] warfarin 5 mg PO TUWETHFRSA 06/18/20 [History Last Taken 06/16/20] warfarin 7.5 mg PO SUMO 06/18/20 [History Last Taken 06/17/20] famotidine 40 mg tablet 40 mg PO DAILY 07/11/20 [History Last Taken Unknown] metoprolol succinate 25 mg tablet,extended release 24 hr 25 mg PO DAILY #90 tab 08/22/20 [Rx Last Taken Unknown] cyclobenzaprine 10 mg PO TID PRN #20 tablet 10/07/20 [Rx Last Taken Unknown] doxycycline hyclate 100 mg PO BID 10/07/20 [History Last Taken Unknown] metoprolol succinate 25 mg PO DAILY 10/07/20 [History Last Taken Unknown] Allergy/AdvReac Type Severity Reaction Status Date / Time gemfibrozil Allergy Intermediate upset Verified 10/07/20 19:00 stomach; constipation amiodarone AdvReac 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 esomeprazole magnesium AdvReac Diarrhea Verified 10/07/20 19:00 [From Nexium] Family History Mother CVA (cerebral vascular accident) Grandfather Heart disease Father Cancer testicular Sister Cancer Breast Surgical History History of cardiac radiofrequency ablation History of cholecystectomy Presence of coronary angioplasty implant and graft (~02/21/13) Presence of implantable cardioverter-defibrillator (ICD) (~06/21/13) Social History household members: spouse housing: house number of children: 3 current occupational status: retired current occupational exposures/hazards: No Smoking Status: Former smoker alcohol intake: never substance use type: does not use ROS ROS ED Constitutional Constitutional ED: Denies chills or fever(s) Eyes Eyes: Denies blurry vision or diplopia ENT ENT ED: Denies sore throat Cardiovascular Cardiovascular: Denies chest pain, palpitations or racing heartbeat Respiratory/Chest Respiratory/Chest: Denies dyspnea, dyspnea on exertion or sputum Gastrointestinal Gastrointestinal: Denies abdominal pain, constipation, diarrhea, nausea or vomiting Genitourinary Genitourinary ED: Denies dysuria, hematuria or urinary frequency Musculoskeletal Musculoskeletal: Reports back pain; Denies neck pain Integumentary Denies Abrasions Neurologic Neurologic: Denies headache(s) or paresthesias EXAM Physical Exam Const Vital Signs: 10/07/20 18:57 10/07/20 20:56 10/07/20 22:00 Temperature 98.5 F Temperature Source Oral Pulse Rate 63 63 67 Respiratory Rate 15 18 15 Blood Pressure 124/66 H 134/71 H 104/78 Blood Pressure Mean 85 92 86 Pulse Ox 97 97 97 Oxygen Delivery Method Room Air Room Air Room Air Positive well nourished General Appearance ED: NAD HEENT Reports moist mucous membranes Negative for trauma Eyes PERRL and EOMs intact bilaterally GI normal to inspection, nondistended, normoactive bowel sounds Back/Spine Back/Spine Narrative: R right lumbar paraspinal musculature tenderness. No midline spinal deformity or step-off. Neuro oriented x3 Sensorium / Orientation: alert Psych mental status grossly normal Skin no rashes or lesions noted and no wounds MDM MDM MDM Narrative Medical decision making narrative: Patient presenting with nontraumatic lower back pain. Initially he states he did not take his Flexeril because it makes him drowsy. I ordered him IM Norflex and IM Toradol and he refused the IM Norflex because he does not want shot of it in his leg. He did receive Toradol with some relief. I did give him oral Norflex. He was able to stand but was unable to walk further than one step secondary to pain and states that he needed to sit back down. 18 imaging of the lumbar spine and a minor pathology. The radiologist does agree. Patient was not amenable to any more shots because he does not like needles. After some discussion he was amenable to take oxycodone. Patient does not have any red flag signs or symptoms of cauda equina syndrome or infectious etiology. I suspect once his pain is controlled he will want to be discharged home. He will be signed out to incoming ED physician for reevaluation. Impression: 1. Lumbar strain Radiography Diagnostic Testing: Radiology Impression Lumbar Spine X-Ray 10/07/20 20:22 IMPRESSION: Unremarkable lumbar spine with age-related change. Electronically Signed: Tay Schwartz MD at 20:50 EDT Tel , Service support , Discharge Plan Triage Chief Complaint: Back ED Provider: Jakob Escobedo Dx/Rx/DC Orders Instructions: ED Back Spasm, No Trauma Prescriptions: New cyclobenzaprine 10 mg tablet 10 mg PO TID PRN (Reason: Muscle Spasm) Qty: 20 RF: 0 No Action Adult Probiotic 3 billion cell capsule 3,000 mmu cells PO DAILY RF: 0 furosemide 40 mg tablet 60 mg PO BID RF: 0 pantoprazole 40 mg tablet,delayed release (DR/EC) 40 mg PO BID RF: 0 famotidine [Pepcid] 40 mg tablet 40 mg PO DAILY RF: 0 metoprolol succinate 25 mg tablet extended release 24 hr 25 mg PO DAILY Qty: 90 RF: 3 magnesium oxide 400 MG tablet 400 mg PO MOWEFR RF: 0 acetaminophen 500 MG tablet 1,000 mg PO PRN PRN (Reason: Pain) RF: 0 aspirin 81 MG tablet,chewable 81 mg PO QHS RF: 0 Entresto 49-51 mg tablet 1 tab PO BID RF: 0 warfarin 7.5 mg tablet 7.5 mg PO SUMO RF: 0 warfarin 5 mg tablet 5 mg PO RF: 0 doxycycline hyclate 100 mg tablet 100 mg PO BID RF: 0 metoprolol succinate 50 mg tablet extended release 24 hr 25 mg PO DAILY RF: 0 atorvastatin 40 mg tablet 40 mg PO QHS Qty: 90 RF: 3 potassium chloride 10 mEq capsule, extended release 20 meq PO BID Qty: 360 RF: 3 trazodone 50 mg tablet 50 mg PO QHS RF: 0 spironolactone 25 mg tablet 25 mg PO BID Qty: 180 RF: 3 Primary Care Provider: Lilly Starr Referrals: Lilly Starr MD [Primary Care Provider] - Disposition Disposition: Home, Self Care
[2020-10-07] MEDS: Ketorolac 15 MG/ML Vial IM (20:09)
--- NOTE | 2020-10-07 20:22 | RAD_ITS ---
STUDY: X-RAY - LUMBAR SPINE REASON FOR EXAM: Male, 75 years old. back pain TECHNIQUE: 3 view(s) of the lumbar spine were obtained. COMPARISON: 18 Jun 2020 FINDINGS: Lumbar spine is intact and aligned with expected age-related degeneration. SI joints are normal. There is cholecystectomy. RAD/Lumbar Spine 2 or 3 Views IMPRESSION: Unremarkable lumbar spine with age-related change. Electronically Signed: Tay Schwartz MD at 20:50 EDT Tel , Service support ,
[2020-10-07 20:56] VITALS: BP 134/71; PULSE 63; RESP 18; O2SAT 97
[2020-10-07] MEDS: Orphenadrine 100 MG Tablet PO (21:40)
[2020-10-07 22:00] VITALS: BP 104/78; PULSE 67; RESP 15; O2SAT 97
[2020-10-07] MEDS: oxyCODONE 5 MG Tablet PO (22:55)
== END 2020-10-08 00:33 | disposition home or self-care (01) ==
PROVIDERS: Emergency Provider Student in an Organized Health Care Education/Training Program; PCP Internal Medicine
DX: S39.012A Strain of muscle, fascia and tendon of lower back, initial encounter (principal); I25.10 Atherosclerotic heart disease of native coronary artery without angina pectoris; I11.0 Hypertensive heart disease with heart failure; I50.22 Chronic systolic (congestive) heart failure; E78.5 Hyperlipidemia, unspecified; Z95.5 Presence of coronary angioplasty implant and graft; I48.91 Unspecified atrial fibrillation; Z79.01 Long term (current) use of anticoagulants; Z79.899 Other long term (current) drug therapy; Z87.891 Personal history of nicotine dependence; X50.1XXA Overexertion from prolonged static or awkward postures, initial encounter; Y93.89 Activity, other specified; Y92.002 Bathroom of unspecified non-institutional (private) residence as the place of occurrence of the external cause; Y99.8 Other external cause status
CPT/HCPCS: 72100; 96372; 99285

== ENCOUNTER 2021-04-30 11:30 | Outpatient (CLI) | payer MEDICARE, SELFPAY ==
[2021-04-30 15:18] LABS: Erythrocyte Sedimentation Rate 9 mm/hr (0-20)
[2021-04-30 15:20] LABS: Absolute Lymphocyte Count 2.14 X10^3/uL (0.83-4.51); Absolute Neutrophil Count 5.9 X10^3/uL (2.0-7.7); Basophil# 0.04 X10^3/uL; Basophil% 0.4 % (0-1); Eosinophil# 0.09 X10^3/uL; Hematocrit 48.1 % (40-54); Hemoglobin 16.7 g/dL (13.0-16.5); Lymphocyte # 2.14 X10^3/ul (0.83-4.51); Lymphocyte % 23.8 % (19-41); Mean Corp Hgb Conc 34.7 g/dL (32-36); Mean Corpuscular Hgb 32.1 pg (27.0-32.0); Mean Corpuscular Volume 92.5 fL (80-94); Mean Platelet Vol. 10.6 fl (6.2-12.0); Monocyte# 0.77 X10^3/uL; Monocyte% 8.6 % (0-10); NRBC Flagged by Analyzer 0 % (0-5); Neutrophil # 5.93 X10^3/uL (2.7-7.7); Neutrophil % 65.9 % (47-70); Platelet Count 264 K/mm3 (150-450); RBC Distribution Width SD 44.1 fl (35.1-43.9)
[2021-04-30 15:33] LABS: AST(SGOT) 31 U/L (15-37); Alanine Aminotransfer ALT/SGPT 53 U/L (16-61); Albumin, Serum 3.9 g/dL (3.2-5.0); Alkaline Phosphatase 108 U/L (45-117); Anion Gap 5 (5-15); BUN 16 mg/dL (7-18); BUN/Creat Ratio 10.5 RATIO (10-20); Calcium,Total 9.1 mg/dL (8.5-10.1); Chloride 95 mmol/L (98-107); Creatinine, Serum 1.52 mg/dL (0.70-1.30); EST Glomerular Filtration Rate 48 mL/min (>60); Est Glom Filt Rate - Afr Amer 58 mL/min (>60); Glucose 362 mg/dL (74-106); Potassium 4.7 mmol/L (3.5-5.1); Protein, Total 7.9 g/dL (6.4-8.2); Sodium Level 129 mmol/L (136-145); T4 Free Direct 1.07 ng/dL (0.76-1.46); Thyroid Stim Hormone (TSH) 1.56 uIU/mL (0.358-3.74)
[2021-05-01 11:24] LABS: Hemoglobin A1c 11.5 % (3.8-5.6)
== END 2021-04-30 23:59 | disposition home or self-care (01) ==
LOC: BIMLAB 11:30
PROVIDERS: PCP Internal Medicine; Referring Provider Internal Medicine; Visit Provider Internal Medicine
DX: I10 Essential (primary) hypertension (principal); I48.0 Paroxysmal atrial fibrillation; R63.4 Abnormal weight loss; R73.9 Hyperglycemia, unspecified; N40.0 Benign prostatic hyperplasia without lower urinary tract symptoms; Z12.5 Encounter for screening for malignant neoplasm of prostate
CPT/HCPCS: 36415; 80053; 83036; 84153; 84439; 84443; 85025; 85652; G0103

== ENCOUNTER 2021-05-02 11:18 | Outpatient (CLI) | payer MEDICARE, SELFPAY ==
[2021-05-02 11:19] LABS: Bacteria 0 SEEN /hpf (None Seen); Mucous, Urine 0 SEEN /hpf (<or=2+); Red Blood Cells-Urine 0 SEEN /hpf (0-5); White Blood Cells 0 SEEN /hpf (0-5)
[2021-05-02 12:08] LABS: Color, Urine Yellow (Yellow); Glucose, Dipstick 1000 mg/dl (Normal); Ketone-Dipstick Negative (Negative); Leukocyte Esterase-Dipstick Negative /ul (Negative); Nitrite-Dipstick Negative (Negative); Occult Blood-Urine Negative /ul (Negative); Protein-Dipstick Negative (Negative); Urine Bilirubin Dipstick Negative (Negative); Urine Clarity Clear (Clear); Urine Urobilinogen Normal (Normal)
[2021-05-02 12:14] LABS: Squamous Epithelial Cells - UA 0-5 SEEN /hpf (0-5)
== END 2021-05-02 23:59 | disposition home or self-care (01) ==
LOC: LABSPEC 11:18
PROVIDERS: PCP Internal Medicine; Referring Provider Internal Medicine; Visit Provider Internal Medicine
DX: N40.0 Benign prostatic hyperplasia without lower urinary tract symptoms (principal)
CPT/HCPCS: 81001

== ENCOUNTER → 2021-06-05 | Outpatient (CLI) | payer MEDICARE, SELFPAY ==
[2021-06-05 15:38] LABS: Anion Gap 8 (5-15); BUN 18 mg/dL (7-18); BUN/Creat Ratio 12.2 RATIO (10-20); Calcium,Total 9.6 mg/dL (8.5-10.1); Chloride 101 mmol/L (98-107); Creatinine, Serum 1.47 mg/dL (0.70-1.30); EST Glomerular Filtration Rate 50 mL/min (>60); Est Glom Filt Rate - Afr Amer 60 mL/min (>60); Glucose 209 mg/dL (74-106); Potassium 4.3 mmol/L (3.5-5.1); Sodium Level 135 mmol/L (136-145)
== END | disposition home or self-care (01) ==
LOC: BIMLAB 13:30
PROVIDERS: PCP Internal Medicine; Visit Provider Internal Medicine
DX: E11.9 Type 2 diabetes mellitus without complications (principal)
CPT/HCPCS: 36415; 80048

== ENCOUNTER 2021-06-26 14:13 | Outpatient (RCR) | payer MEDICARE, SELFPAY | END 2021-07-09 23:59 | LOC: DC 14:13 | PROVIDERS: PCP Internal Medicine; Visit Provider Internal Medicine | DX: E11.9 Type 2 diabetes mellitus without complications (principal) | CPT/HCPCS: G0108 ==

== ENCOUNTER 2021-07-04 10:28 | Day surgery (SDC) | payer MEDICARE, SELFPAY ==
[2021-06-17 12:17] LABS: Mucous, Urine 0 SEEN /hpf (<or=2+)
[2021-06-17 12:51] LABS: Hematocrit 47.2 % (40-54); Hemoglobin 15.8 g/dL (13.0-16.5); Mean Corp Hgb Conc 33.5 g/dL (32-36); Mean Corpuscular Hgb 31.5 pg (27.0-32.0); Platelet Count 263 K/mm3 (150-450); RBC Distribution Width CV 13.4 % (11.6-14.6); RBC Distribution Width SD 46.4 fl (35.1-43.9); Red Blood Count 5.02 M/mm3 (4.6-6.2); White Blood Count 10.1 K/mm3 (4.4-11.0)
[2021-06-17 13:11] LABS: BNP,B-Type NATRIURETIC PEPTIDE 23.9 pg/mL (0-100)
[2021-06-17 13:12] LABS: Prothrombin Time (Protime)PT. 22.5 SECONDS (11.7-14.9)
[2021-06-17 13:22] LABS: Color, Urine Yellow (Yellow); Glucose, Dipstick Normal (Normal); Ketone-Dipstick Negative (Negative); Leukocyte Esterase-Dipstick Negative /ul (Negative); Nitrite-Dipstick Negative (Negative); Occult Blood-Urine Negative /ul (Negative); Protein-Dipstick Negative (Negative); Specific Gravity, Urine 1.015 (1.002-1.030); Urine Bilirubin Dipstick Negative (Negative); Urine Clarity Clear (Clear); Urine Urobilinogen Normal (Normal)
[2021-06-17 13:37] LABS: Bacteria 1+ /hpf (None Seen); Squamous Epithelial Cells - UA 0-5 SEEN /hpf (0-5)
[2021-06-17 13:38] LABS: White Blood Cells 0-5 SEEN /hpf (0-5)
[2021-06-17 13:39] LABS: Red Blood Cells-Urine 0-5 SEEN /hpf (0-5)
[2021-06-17 13:53] LABS: Anion Gap 9 (5-15); BUN 23 mg/dL (7-18); BUN/Creat Ratio 13.4 RATIO (10-20); Calcium,Total 9.9 mg/dL (8.5-10.1); Chloride 98 mmol/L (98-107); Creatinine, Serum 1.72 mg/dL (0.70-1.30); EST Glomerular Filtration Rate 42 mL/min (>60); Est Glom Filt Rate - Afr Amer 50 mL/min (>60); Glucose 130 mg/dL (74-106); Potassium 4.4 mmol/L (3.5-5.1); Sodium Level 134 mmol/L (136-145)
[2021-07-03 08:54] VITALS: BMI 31.4
[2021-07-04 10:40] LABS: INR Fingerstick 2.4; Prothrombin Time Fingerstick 28.2 SEC (11.7-14.9)
[2021-07-04 12:50] LABS: Bedside Glucose 130 mg/dL (74-106)
--- NOTE | 2021-07-04 13:12 | PACER.ICD_ITS ---
Pacemaker/ICD Implant Pacemaker/ICD Implant Diagnosis: Ischemic Cardiomyopathy with NYHA Class ii. ICD for secondary prevention. Device generator replacement for normal battery depletion Preoperative diagnosis is device at end of life for normal battery depletion. Postoperative diagnosis same as above. After informed consent and IV antibiotics the patient was brought to the [place] [facility] laboratory and the skin over the device was prepped and draped in the usual sterile manner. Intermittent boluses of Versed, and fentanyl were used for sedation and analgesia as well as 1% subcutaneous lidocaine. An incision was made over the pre-existing device. Using blunt and Bovie dissection the pocket was opened and the device was removed. Careful attention was paid not to injure the pre-existing leads. The leads were removed from the device header and they were interrogated. There is normal lead function. Hemostasis was obtained. The pocket was flushed with antibiotic solution. The sponge and needle count were correct. The new device was brought to the field. The leads were placed in the appropriate position in the header and secured by the set screw. The leads and the device were then placed in the pocket. The pocket was closed with a deep layer of running 2-0 Vicryl, a superficial layer of running 4-0 Vicryl, skin with Steri-Strips which were covered with a rolled 4 x 4 and Tegaderm. Patient left the room with the device programmed to proper parameters and there were no complications. The device is a dual chamber icd generator. All lead parameters were tested and found to be functionally normal. Lead and device serial and model numbers are available in the chart documents provided by the device company international representative procedure summary.
== END 2021-07-04 14:31 | disposition home or self-care (01) ==
PROVIDERS: Internal Medicine Cardiovascular Disease; Nurse Practitioner Family; PCP Internal Medicine; Referring Provider Internal Medicine Cardiovascular Disease; Visit Provider Internal Medicine Cardiovascular Disease
DX: Z45.010 Encounter for checking and testing of cardiac pacemaker pulse generator [battery] (principal); I50.22 Chronic systolic (congestive) heart failure; I11.0 Hypertensive heart disease with heart failure; I48.0 Paroxysmal atrial fibrillation; E11.9 Type 2 diabetes mellitus without complications; I25.10 Atherosclerotic heart disease of native coronary artery without angina pectoris; I25.5 Ischemic cardiomyopathy; I25.2 Old myocardial infarction; E78.2 Mixed hyperlipidemia; R06.09 Other forms of dyspnea; Z95.810 Presence of automatic (implantable) cardiac defibrillator; Z98.890 Other specified postprocedural states; Z79.01 Long term (current) use of anticoagulants; Z79.82 Long term (current) use of aspirin; Z79.84 Long term (current) use of oral hypoglycemic drugs; Z79.899 Other long term (current) drug therapy; Z86.73 Personal history of transient ischemic attack (TIA), and cerebral infarction without residual deficits; Z87.891 Personal history of nicotine dependence
CPT/HCPCS: 33263; 36415; 36416; 80048; 81001; 82962; 83880; 85027; 85610; 87426; 93641; 99152; 99153; C9803; J7030; J7050

== ENCOUNTER → 2021-07-11 | Outpatient (CLI) | payer MEDICARE, SELFPAY ==
--- NOTE | 2021-07-11 14:13 | CT_ITS ---
STUDY: LOW DOSE CT LUNG CANCER SCREENING REASON FOR EXAM: Male, 76 years old. H/o Tobacco Dependency. Patient smoke 2 packs per day for 61 years. Patient quit smoking 6 years ago. RADIATION DOSAGE (If Supplied By Facility): CTDIvol = ( 4.02 ) mGy, DLP = ( 137.43 ) mGycm TECHNIQUE: No contrast was administered. Low dose technique was utilized (average mAS-38 and kVp 120). 1.25 mm axial source images with a slice interval of 1.25-mm were reconstructed in lung windows. 2.5 mm axial source images with a slice interval of 2.5-mm were reconstructed in lung windows. 5.0 mm axial source images with a slice interval of 5.0-mm were reconstructed in soft tissue windows. COMPARISON: None. NODULES: No suspicious nodules are seen. Emphysema: Hyperinflation. Mild degree of emphysematous changes. There is evidence of a prominent soft tissue in the right lung apex suggestive of a right apical scarring. Endobronchial lesion: None Aorta: Atherosclerotic plaque calcification. CORONARY ARTERIES: Coronary artery calcification is seen. Heart: Unremarkable. A left-sided dual-chamber pacemaker is seen. Pulmonary artery: Unremarkable Mediastinal nodes: Small mediastinal lymph nodes. Other chest and abdominal findings: CT/Low Dose CT Lung Screening IMPRESSION: Lung-RADS category 2 - Continue annual screening with LDCT in 12 months. IMPORTANT NOTES FOR USE: ACR Lung-RADS Version 1.1 Assessment Categories Release Date: 2018 Category: Coded 0-4 bases on nodule(s) with highest degree of suspicion. Negative screen is defined as categories 1 and 2; a positive screen is defined as categories 3 and 4. Category 3 and 4A nodules that are unchanged on interval CT should be coded as category 2, and individuals returned to screening in 12 months. Category 4X: Category 3 or 4 nodules with additional imaging findings that increase the suspicion of lung cancer, such as spiculation, GGN that doubles in size in 1 year, enlarged lymph notes, etc. Category Modifiers: S (significant finding unrelated to lung cancer) Electronically Signed: Jose Miguel Thomas MD at 14:46 EDT ,
== END | disposition home or self-care (01) ==
PROVIDERS: PCP Internal Medicine; Referring Provider Internal Medicine Critical Care Medicine; Visit Provider Internal Medicine Critical Care Medicine
DX: Z87.891 Personal history of nicotine dependence (principal)
CPT/HCPCS: 71271

== ENCOUNTER 2021-07-31 13:00 | Outpatient (RCR) | payer MEDICARE, SELFPAY | END 2021-08-08 23:59 | LOC: DC 13:00 | PROVIDERS: PCP Internal Medicine; Referring Provider Internal Medicine; Visit Provider Internal Medicine | DX: E11.9 Type 2 diabetes mellitus without complications (principal) | CPT/HCPCS: 97802; G0108 ==

== ENCOUNTER 2021-08-15 14:35 | Outpatient (RCR) | payer MEDICARE, SELFPAY | END 2021-09-08 23:59 | LOC: DC 14:35 | PROVIDERS: PCP Internal Medicine; Referring Provider Internal Medicine; Visit Provider Internal Medicine | DX: E11.9 Type 2 diabetes mellitus without complications (principal) | CPT/HCPCS: 97803 ==

== ENCOUNTER 2021-09-12 12:11 | Outpatient (RCR) | payer MEDICARE, SELFPAY | END 2021-10-09 23:59 | LOC: DC 12:11 | PROVIDERS: PCP Internal Medicine; Referring Provider Internal Medicine; Visit Provider Internal Medicine | DX: E11.9 Type 2 diabetes mellitus without complications (principal) | CPT/HCPCS: G0109 ==

== ENCOUNTER → 2021-10-18 | Outpatient (CLI) | payer MEDICARE, SELFPAY ==
[2021-10-18 17:25] LABS: Anion Gap 7 (5-15); BUN 27 mg/dL (7-18); BUN/Creat Ratio 16.4 RATIO (10-20); Calcium,Total 9.4 mg/dL (8.5-10.1); Chloride 103 mmol/L (98-107); Creatinine, Serum 1.65 mg/dL (0.70-1.30); EST Glomerular Filtration Rate 44 mL/min (>60); Est Glom Filt Rate - Afr Amer 53 mL/min (>60); Glucose 131 mg/dL (74-106); Potassium 4.6 mmol/L (3.5-5.1); Sodium Level 137 mmol/L (136-145)
== END | disposition home or self-care (01) ==
LOC: BIMLAB 14:58
PROVIDERS: PCP Internal Medicine; Visit Provider Internal Medicine
DX: I12.9 Hypertensive chronic kidney disease with stage 1 through stage 4 chronic kidney disease, or unspecified chronic kidney disease (principal); E11.22 Type 2 diabetes mellitus with diabetic chronic kidney disease; N18.30 Chronic kidney disease, stage 3 unspecified
CPT/HCPCS: 36415; 80048

== ENCOUNTER 2021-10-21 13:00 | Outpatient (RCR) | payer MEDICARE, SELFPAY | END 2021-11-08 23:59 | LOC: DC 13:00 | PROVIDERS: PCP Internal Medicine; Referring Provider Internal Medicine; Visit Provider Internal Medicine | DX: E11.9 Type 2 diabetes mellitus without complications (principal) | CPT/HCPCS: 97803; G0109 ==

== ENCOUNTER 2021-11-14 15:56 | Outpatient (RCR) | payer MEDICARE, SELFPAY | END 2021-12-09 23:59 | LOC: DC 15:56 | PROVIDERS: PCP Internal Medicine; Referring Provider Internal Medicine; Visit Provider Internal Medicine | DX: E11.9 Type 2 diabetes mellitus without complications (principal) | CPT/HCPCS: G0109 ==

== ENCOUNTER 2021-12-12 16:25 | Outpatient (RCR) | payer MEDICARE, SELFPAY | END 2021-12-12 23:59 | disposition home or self-care (01) | LOC: DC 16:25 | PROVIDERS: PCP Internal Medicine; Referring Provider Internal Medicine; Visit Provider Internal Medicine | DX: E11.9 Type 2 diabetes mellitus without complications (principal) | CPT/HCPCS: G0109 ==

== ENCOUNTER → 2022-01-22 | Outpatient (CLI) | payer MEDICARE, SELFPAY ==
--- NOTE | 2022-01-22 14:15 | ART_ITS ---
Reason For Study: PVD Procedure A bilateral lower extremity continuous wave Doppler with analog waveform analysis,segmental pressures,and ankle brachial indexes without exercise. Did not walk patient on treadmill, patient walks with walker and is unsteady. Left Segmental Pressures Left brachial= 97mmHg. Left posterior tibial artery = 123mmHg. Left dorsalis pedis artery = 115mmHg. Left digit = 86 mmHg. The left dorsalis pedis waveforms are triphasic. The left posterior tibial artery waveforms are triphasic. Right Segmental Pressures Right brachial= 94mmHg. Right posterior tibial artery = 150mmHg. Right dorsalis pedis artery = >254mmHg. Right digit = 92 mmHg. The right dorsalis pedis waveforms are triphasic. The right posterior tibial artery waveforms are triphasic. Indices The right ankle brachial index by the dorsalis pedis is NC. The right ankle brachial index by the posterior tibial artery is 1.55. The right digital-brachial index is 0.95. The left ankle brachial index by the dorsalis pedis is 1.19. The left ankle brachial index by the posterior tibial artery is 1.27. The left digital-brachial index is 0.89. VL/Lower Ext Art Exam w/o Exercis Interpretation Summary Triphasic Doppler waveforms are noted at ankle level bilaterally. Pulse-volume recordings appear satisfactory at all levels bilaterally. The resting right ankle-brachial index is supra-normal. The resting left ankle-brachial index is normal. Digital-brachial indices are darcy l bilaterally. There is evidence of arterial calcification at ankle level on the right. There is no evidence of significant arterial occlusive disease in the lower extremities bilaterally. Ordering Physician: Evan Sepulveda Referring Physician: Luis Hay Performed By: Keri Brock RVT
== END | disposition home or self-care (01) ==
LOC: CVS 14:13
PROVIDERS: PCP Internal Medicine; Referring Provider Podiatrist; Visit Provider Podiatrist
DX: I73.9 Peripheral vascular disease, unspecified (principal)
CPT/HCPCS: 93923

== ENCOUNTER → 2022-01-23 | Outpatient (CLI) | payer MEDICARE, SELFPAY ==
[2022-01-23 15:00] LABS: Absolute Neutrophil Count 4.6 X10^3/uL (2.0-7.7); Basophil# 0.06 X10^3/uL; Basophil% 0.8 % (0-1); Eosinophil# 0.25 X10^3/uL; Eosinophils% 3.2 % (0-5); Hemoglobin 15.3 g/dL (13.0-16.5); Lymphocyte % 29.3 % (19-41); Mean Corpuscular Hgb 31.2 pg (27.0-32.0); Mean Corpuscular Volume 91.6 fL (80-94); Mean Platelet Vol. 10.1 fl (6.2-12.0); Monocyte# 0.63 X10^3/uL; NRBC Flagged by Analyzer 0 % (0-5); Neutrophil # 4.59 X10^3/uL (2.7-7.7); Neutrophil % 58.4 % (47-70); Platelet Count 232 K/mm3 (150-450); RBC Distribution Width CV 13.3 % (11.6-14.6); Red Blood Count 4.91 M/mm3 (4.6-6.2); White Blood Count 7.9 K/mm3 (4.4-11.0)
[2022-01-23 15:31] LABS: ALB/GLOB Ratio 1.1 RATIO (0.9-2.4); AST(SGOT) 35 U/L (15-37); Alanine Aminotransfer ALT/SGPT 64 U/L (16-61); Alkaline Phosphatase 57 U/L (45-117); Anion Gap 8 (5-15); BUN 14 mg/dL (7-18); Calcium,Total 9.5 mg/dL (8.5-10.1); Chloride 101 mmol/L (98-107); EST Glomerular Filtration Rate 53 mL/min (>60); Est Glom Filt Rate - Afr Amer 64 mL/min (>60); Globulin 3.5 g/dL (2.2-4.2); Glucose 134 mg/dL (74-106); Potassium 4.8 mmol/L (3.5-5.1); Protein, Total 7.5 g/dL (6.4-8.2); Sodium Level 135 mmol/L (136-145)
== END | disposition home or self-care (01) ==
LOC: BIMLAB 14:09
PROVIDERS: PCP Internal Medicine; Referring Provider Internal Medicine; Visit Provider Internal Medicine
DX: I12.9 Hypertensive chronic kidney disease with stage 1 through stage 4 chronic kidney disease, or unspecified chronic kidney disease (principal); E11.22 Type 2 diabetes mellitus with diabetic chronic kidney disease; N18.30 Chronic kidney disease, stage 3 unspecified
CPT/HCPCS: 36415; 80053; 85025

== ENCOUNTER → 2022-04-14 | Outpatient (CLI) | payer MEDICARE, SELFPAY ==
[2022-04-14 08:53] LABS: Absolute Lymphocyte Count 2.65 X10^3/uL (0.83-4.51); Basophil# 0.06 X10^3/uL; Basophil% 0.7 % (0-1); Eosinophil# 0.23 X10^3/uL; Eosinophils% 2.6 % (0-5); Hematocrit 44.4 % (40-54); Hemoglobin 14.6 g/dL (13.0-16.5); Lymphocyte # 2.65 X10^3/ul (0.83-4.51); Mean Corp Hgb Conc 32.9 g/dL (32-36); Mean Corpuscular Hgb 31.2 pg (27.0-32.0); Mean Corpuscular Volume 94.9 fL (80-94); Mean Platelet Vol. 10.4 fl (6.2-12.0); Monocyte# 0.83 X10^3/uL; Monocyte% 9.4 % (0-10); NRBC Flagged by Analyzer 0 % (0-5); Neutrophil # 5.03 X10^3/uL (2.7-7.7); Platelet Count 227 K/mm3 (150-450); RBC Distribution Width CV 13.5 % (11.6-14.6); RBC Distribution Width SD 47.2 fl (35.1-43.9); Red Blood Count 4.68 M/mm3 (4.6-6.2); White Blood Count 8.8 K/mm3 (4.4-11.0)
[2022-04-14 09:25] LABS: BNP,B-Type NATRIURETIC PEPTIDE 27.2 pg/mL (0-100)
[2022-04-14 09:32] LABS: AST(SGOT) 32 U/L (15-37); Alanine Aminotransfer ALT/SGPT 53 U/L (16-61); Albumin, Serum 3.8 g/dL (3.2-5.0); Alkaline Phosphatase 58 U/L (45-117); Anion Gap 9 (5-15); BUN 19 mg/dL (7-18); BUN/Creat Ratio 11.8 RATIO (10-20); Bilirubin, Direct 0.23 mg/dL (0.00-0.30); Calcium,Total 9.5 mg/dL (8.5-10.1); Chloride 101 mmol/L (98-107); Cholesterol 159 mg/dL (200); Creatinine, Serum 1.61 mg/dL (0.70-1.30); EST Glomerular Filtration Rate 45 mL/min (>60); Est Glom Filt Rate - Afr Amer 54 mL/min (>60); Globulin 3.7 g/dL (2.2-4.2); Glucose 182 mg/dL (74-106); High Density Lipoprotein 41 mg/dL; Potassium 4.5 mmol/L (3.5-5.1); Protein, Total 7.5 g/dL (6.4-8.2); Sodium Level 137 mmol/L (136-145); Thyroid Stim Hormone (TSH) 2.36 uIU/mL (0.358-3.74); Triglycerides 316 mg/dL; Very Low Density Lipoprotein 63 mg/dL (5-40)
== END | disposition home or self-care (01) ==
LOC: LAB 08:09
PROVIDERS: PCP Internal Medicine; Referring Provider Nurse Practitioner Gerontology; Visit Provider Nurse Practitioner Gerontology
DX: R06.00 Dyspnea, unspecified (principal); E78.2 Mixed hyperlipidemia
CPT/HCPCS: 36415; 80048; 80061; 80076; 83880; 84443; 85025

== ENCOUNTER → 2022-04-17 | Outpatient (CLI) | payer MEDICARE, SELFPAY ==
--- NOTE | 2022-04-17 13:55 | ECHOCS_ITS ---
Reason For Study: Isch CMP, ZACARIAS Procedure This was a 2D Doppler, Color Flow transthoracic echocardiogram. The study was technically difficult. Contrast injection was performed. Exam performed in department. Left Ventricle Severely dilated left ventricle. Severe segmental systolic dysfunction (see wall motion). The estimated ejection fraction is 15 %. No evidence for diastolic dysfunction. Anterio-Basal: Hypokinetic. Posterior-Basal: Akinetic. Infero-Basal: Akinetic. Basal inferoseptal: Hypokinetic. Mid-Anterior : Hypokinetic. Mid-Lateral : Hypokinetic. Mid-Posterior: Akinetic. Mid-Inferior: Akinetic. Mid-inferoseptal : Akinetic. Mid-anteroseptal : Hypokinetic. Anterior [place] : Hypokinetic. Inferior [place] : Akinetic. Lateral [place] : Akinetic. Septal [place] : Akinetic. Right Ventricle Normal RV size. ICD or pacer leads identified within the right ventricle. Normal systolic function. Atria The left atrium is mildly enlarged. Normal right atrium. ICD or pacer leads identified within the right atrium. No doppler evidence for ASD. Mitral Valve There is no mitral annular calcification. Normal mitral valve. Mild (1+) mitral valve insufficiency. Tricuspid Valve Normal tricuspid valve. Trivial tricuspid valve insufficiency. Unable to estimate RV systolic pressure/pulmonary artery pressure due to technically difficult study. Aortic Valve Trisinus/trileaflet aortic valve. Normal aortic valve. Pulmonic Valve The pulmonic valve is not well visualized. Great Vessels The aortic root is not well visualized. Pericardium/Pleural No pericardial effusion. Epicardial fat. Medication 20 gauge I.V. with prn adaptor inserted into left arm. Diluted definity 4ml given slow IV push to enhance endocardial definition. MMode/2D Measurements & Calculations LVIDd: 7.1 cm IVSd: 1.2 cm LA dimension: 4.7 cm LVIDs: 6.6 cm LVPWd: 0.72 cm FS: 7.6 % LAV(MOD-sp4): 53.7 ml LVAd ap4: 47.1 cm2 SV(MOD-sp4): 55.2 ml LVLd ap4: 8.6 cm EDV(MOD-sp4): 208.1 ml EDV(sp4-el): 218.6 ml LVAs ap4: 39.8 cm2 LVLs ap4: 8.4 cm ESV(MOD-sp4): 153.0 ml ESV(sp4-el): 158.9 ml EF(MOD-sp4): 26.5 % EF(sp4-el): 27.3 % SV(sp4-el): 59.7 ml LA A4 area: 20.3 cm2 Time Measurements MV dec time: 0.36 sec Doppler Measurements & Calculations MV E max shmuel: 42.2 cm/sec Lat Peak E' Shmuel: 4.9 cm/sec Med Peak E' Shmuel: 3.3 cm/sec MV A max shmuel: 89.7 cm/sec E/E' lat: 8.6 E/E' med: 12.9 MV E/A: 0.47 MV V2 max: 112.2 cm/sec Ao V2 max: 100.7 cm/sec MV max P.0 mmHg MV dec slope: 121.5 cm/sec2 Ao max P.1 mmHg MV V2 mean: 44.9 cm/sec Ao V2 mean: 65.2 cm/sec MV mean P.1 mmHg Ao mean P.0 mmHg MV V2 VTI: 26.4 cm Ao V2 VTI: 18.4 cm AV (velocity ratio): 1.1 LV V1 max: 102.0 cm/sec PA V2 max: 92.4 cm/sec LV V1 max P.2 mmHg PA V2 mean: 60.7 cm/sec LV V1 mean P.9 mmHg LV V1 mean: 62.4 cm/sec LV V1 VTI: 19.4 cm ECHO/Echo Complete W/ Contrast Interpretation Summary The study was technically difficult. Contrast injection was performed. Severely dilated left ventricle. Severe segmental systolic dysfunction (see wall motion). The estimated ejection fraction is 15 %. The left atrium is mildly enlarged. Mild (1+) mitral valve insufficiency. Trivial tricuspid valve insufficiency. Epicardial fat. Unable to estimate RV systolic pressure/pulmonary artery pressure due to techni manpreet difficult study. No evidence for diastolic dysfunction. ICD or pacer leads identified within the right atrium ICD or pacer leads identified within the right ventricle. Ordering Physician: Oksana Guillermo Referring Physician: Oksana Guillermo Performed By: Surya Porras RCS
== END | disposition home or self-care (01) ==
LOC: CVS 13:54
PROVIDERS: PCP Internal Medicine; Referring Provider Nurse Practitioner Gerontology; Visit Provider Nurse Practitioner Gerontology
DX: R06.00 Dyspnea, unspecified (principal)
CPT/HCPCS: 93306; Q9957; A4216; C8929

== ENCOUNTER → 2022-05-28 | Outpatient (CLI) | payer MEDICARE, SELFPAY ==
[2022-05-28 13:09] LABS: Anion Gap 8 (5-15); BUN 17 mg/dL (7-18); BUN/Creat Ratio 10.4 RATIO (10-20); Calcium,Total 9.5 mg/dL (8.5-10.1); Chloride 104 mmol/L (98-107); Creatinine, Serum 1.64 mg/dL (0.70-1.30); EST Glomerular Filtration Rate 44 mL/min (>60); Est Glom Filt Rate - Afr Amer 53 mL/min (>60); Glucose 250 mg/dL (74-106); Potassium 4.6 mmol/L (3.5-5.1); Sodium Level 137 mmol/L (136-145)
== END | disposition home or self-care (01) ==
PROVIDERS: PCP Internal Medicine; Referring Provider Internal Medicine; Visit Provider Internal Medicine
DX: E11.9 Type 2 diabetes mellitus without complications (principal)
CPT/HCPCS: 36415; 80048

== ENCOUNTER → 2022-07-15 | Outpatient (CLI) | payer MEDICARE, SELFPAY ==
--- NOTE | 2022-07-15 12:47 | CT_ITS ---
EXAM: CT CHEST, LUNG CANCER SCREENING WITHOUT INTRAVENOUS CONTRAST CLINICAL INDICATION: smoker TECHNIQUE: Helically acquired images were obtained of the chest without intravenous contrast using low dose (LDCT) lung cancer screening protocol. This CT exam was performed using one or more of the following dose reduction techniques: automated exposure control, adjustment of the mA and/or kV according to patient size, and/or use of iterative reconstruction technique. COMPARISON: 07/11/2021 FINDINGS: LUNGS AND PLEURAL SPACES: Unremarkable. No mass. No consolidation or edema. No pleural effusion or thickening. No pneumothorax. HEART: Unremarkable. Heart size is normal. No pericardial effusion. No significant coronary artery calcifications. MEDIASTINUM: Unremarkable. No mediastinal or hilar adenopathy. Esophagus is unremarkable. No hiatal hernia. THYROID: Unremarkable. No thyroid lesions. BONES/JOINTS: Unremarkable. No suspicious lytic or blastic abnormality. SOFT TISSUES: There is stable soft tissue in the right apex which may represent scarring. VASCULATURE: Unremarkable. Thoracic aorta is non-dilated. LYMPH NODES: Unremarkable. No enlarged lymph nodes. TUBES, LINES AND DEVICES: Left-sided pacemaker is again present. CT/Low Dose CT Lung Screening IMPRESSION: 1. Lung-RADS score: 1 - Recommend continued annual screening with a low-dose CT (LDCT) in 12 months. 2. No acute pulmonary abnormality. There is stable right apical scarring. There has been no significant change from the reference exam. Electronically Signed: Alcides Muro MD at 23:49 EDT ,
== END | disposition home or self-care (01) ==
LOC: CT 12:44
PROVIDERS: PCP Internal Medicine; Referring Provider Nurse Practitioner Acute Care; Visit Provider Nurse Practitioner Acute Care
DX: F17.210 Nicotine dependence, cigarettes, uncomplicated (principal)
CPT/HCPCS: 71271

== ENCOUNTER → 2022-10-22 | Outpatient (CLI) | payer MEDICARE, SELFPAY ==
[2022-10-22 15:51] LABS: AST(SGOT) 37 U/L (15-37); Alanine Aminotransfer ALT/SGPT 60 U/L (16-61); Albumin, Serum 3.8 g/dL (3.2-5.0); Alkaline Phosphatase 65 U/L (45-117); Anion Gap 8 (5-15); BUN 14 mg/dL (7-18); BUN/Creat Ratio 10.1 RATIO (10-20); Calcium,Total 9.3 mg/dL (8.5-10.1); Chloride 103 mmol/L (98-107); Creatinine, Serum 1.39 mg/dL (0.70-1.30); EST Glomerular Filtration Rate 53 mL/min (>60); Est Glom Filt Rate - Afr Amer 64 mL/min (>60); Globulin 3.8 g/dL (2.2-4.2); Glucose 192 mg/dL (74-106); Potassium 4.6 mmol/L (3.5-5.1); Protein, Total 7.6 g/dL (6.4-8.2); Sodium Level 135 mmol/L (136-145)
[2022-10-22 16:16] LABS: Hemoglobin A1c 7.2 % (3.8-5.6)
== END | disposition home or self-care (01) ==
LOC: BIMLAB 13:21
PROVIDERS: PCP Internal Medicine; Referring Provider Internal Medicine; Visit Provider Internal Medicine
DX: E11.9 Type 2 diabetes mellitus without complications (principal)
CPT/HCPCS: 36415; 80053; 83036

== ENCOUNTER → 2022-10-29 | Outpatient (CLI) | payer MEDICARE, SELFPAY ==
[2022-10-29 18:09] LABS: Microalbumin,Random Urine 6.3 mg/L (NO RANGE EST.); Microalbumin:Creatinine Ratio 9.2 mg/g CRE (<30 mg/g CRE)
== END | disposition home or self-care (01) ==
LOC: BIMLAB 14:49
PROVIDERS: PCP Internal Medicine; Visit Provider Internal Medicine
DX: E11.9 Type 2 diabetes mellitus without complications (principal)
CPT/HCPCS: 82043; 82570

== ENCOUNTER → 2023-04-15 | Outpatient (CLI) | payer MEDICARE, SELFPAY ==
[2023-04-15 12:23] LABS: Absolute Neutrophil Count 4.9 X10^3/uL (2.0-7.7); Basophil# 0.06 X10^3/uL; Basophil% 0.7 % (0-1); Eosinophil# 0.29 X10^3/uL; Eosinophils% 3.5 % (0-5); Hemoglobin 14.7 g/dL (13.0-16.5); Mean Corp Hgb Conc 33.4 g/dL (32-36); Mean Corpuscular Hgb 31.3 pg (27.0-32.0); Mean Corpuscular Volume 93.8 fL (80-94); Mean Platelet Vol. 10.1 fl (6.2-12.0); Monocyte# 0.66 X10^3/uL; NRBC Flagged by Analyzer 0 % (0-5); Neutrophil # 4.85 X10^3/uL (2.7-7.7); Neutrophil % 58.6 % (47-70); Platelet Count 240 K/mm3 (150-450); RBC Distribution Width CV 13.8 % (11.6-14.6); RBC Distribution Width SD 47.3 fl (35.1-43.9); Red Blood Count 4.69 M/mm3 (4.6-6.2); White Blood Count 8.3 K/mm3 (4.4-11.0)
[2023-04-15 13:01] LABS: AST(SGOT) 37 U/L (15-37); Alanine Aminotransfer ALT/SGPT 51 U/L (16-61); Albumin, Serum 3.8 g/dL (3.2-5.0); Alkaline Phosphatase 61 U/L (45-117); Anion Gap 6 (5-15); BUN 14 mg/dL (7-18); BUN/Creat Ratio 9.5 RATIO (10-20); Calcium,Total 9.5 mg/dL (8.5-10.1); Chloride 105 mmol/L (98-107); Cholesterol 137 mg/dL (200); Creatinine, Serum 1.48 mg/dL (0.70-1.30); EST Glomerular Filtration Rate 49 mL/min (>60); Est Glom Filt Rate - Afr Amer 59 mL/min (>60); Globulin 3.7 g/dL (2.2-4.2); Glucose 181 mg/dL (74-106); High Density Lipoprotein 42 mg/dL; Potassium 4.8 mmol/L (3.5-5.1); Protein, Total 7.5 g/dL (6.4-8.2); Sodium Level 139 mmol/L (136-145); Triglycerides 297 mg/dL; Very Low Density Lipoprotein 59 mg/dL (5-40)
[2023-04-15 13:35] LABS: Hemoglobin A1c 6.5 % (3.8-5.6)
[2023-04-16 15:55] LABS: T4 Free Direct 0.91 ng/dL (0.76-1.46)
== END | disposition home or self-care (01) ==
LOC: BIMLAB 11:19
PROVIDERS: PCP Internal Medicine; Visit Provider Internal Medicine
DX: E11.9 Type 2 diabetes mellitus without complications (principal); I10 Essential (primary) hypertension
CPT/HCPCS: 36415; 80053; 80061; 83036; 84439; 84443; 85025

== ENCOUNTER → 2023-07-31 | Outpatient (CLI) | payer MEDICARE, SELFPAY ==
--- NOTE | 2023-07-31 14:08 | CT_ITS ---
EXAM: CT CHEST, LUNG CANCER SCREENING WITHOUT INTRAVENOUS CONTRAST CLINICAL INDICATION: 122 pack years quit 2016 TECHNIQUE: Helically acquired images were obtained of the chest without intravenous contrast using low dose (LDCT) lung cancer screening protocol. This CT exam was performed using one or more of the following dose reduction techniques: automated exposure control, adjustment of the mA and/or kV according to patient size, and/or use of iterative reconstruction technique. COMPARISON: 07/15/2022 FINDINGS: LUNGS AND PLEURAL SPACES: Unremarkable. No mass. No consolidation or edema. No pleural effusion or thickening. No pneumothorax. HEART: Unremarkable. Heart size is normal. No pericardial effusion. No significant coronary artery calcifications. MEDIASTINUM: Unremarkable. No mediastinal or hilar adenopathy. Esophagus is unremarkable. No hiatal hernia. THYROID: Unremarkable. No thyroid lesions. BONES/JOINTS: Unremarkable. No suspicious lytic or blastic abnormality. VASCULATURE: Unremarkable. Thoracic aorta is non-dilated. LYMPH NODES: Unremarkable. No enlarged lymph nodes. TUBES, LINES AND DEVICES: Left-sided pacemaker is in place. CT/Low Dose CT Lung Screening IMPRESSION: No evidence malignancy. There is no acute abnormality. Lung-RADS score: 1 - Negative. Recommend continued annual screening with a low-dose CT (LDCT) in 12 months. Electronically Signed: Alcides Muro MD at 23:57 EDT ,
== END | disposition home or self-care (01) ==
PROVIDERS: PCP Internal Medicine; Referring Provider Nurse Practitioner Acute Care; Visit Provider Nurse Practitioner Acute Care
DX: F17.210 Nicotine dependence, cigarettes, uncomplicated (principal)
CPT/HCPCS: 71271

== ENCOUNTER 2023-09-28 13:37 | Inpatient (IN) | payer MEDICARE, SELFPAY ==
[2023-09-28] VITALS (7 sets, daily range): BP systolic 98–133; BP diastolic 71–83; PULSE 68–108; RESP 16–18; TEMP 36.6; O2SAT 96–100; BMI 31.4; BMI 31.2
[2023-09-28 14:38] LABS: Mucous, Urine 0 SEEN /hpf (<or=2+)
[2023-09-28 14:44] LABS: Color, Urine Yellow (Yellow); Glucose, Dipstick Normal (Normal); Ketone-Dipstick Negative (Negative); Leukocyte Esterase-Dipstick 500 /ul (Negative); Nitrite-Dipstick Negative (Negative); Occult Blood-Urine 250 /ul (Negative); Protein-Dipstick 15 mg/dl (Negative); Specific Gravity, Urine 1.015 (1.002-1.030); Urine Bilirubin Dipstick Negative (Negative); Urine Clarity Clear (Clear); Urine Urobilinogen Normal (Normal)
[2023-09-28 14:53] LABS: Red Blood Cells-Urine > 100 SEEN /hpf (0-5); Squamous Epithelial Cells - UA 10-25 SEEN /hpf (0-5); White Blood Cells >100 SEEN /hpf (0-5)
[2023-09-28 14:54] LABS: Bacteria 2+ /hpf (None Seen)
--- NOTE | 2023-09-28 15:28 | CT_ITS ---
INDICATION: RLQ abd pain EXAMINATION: CT Abdomen And Pelvis W/ Contrast Injection TECHNIQUE: Helically acquired images were obtained of the abdomen and pelvis after IV contrast. A radiation dose optimization technique was used for this scan. IV Contrast dosage and agent: IV 100mL [id number] Oral contrast: None. COMPARISON: None available. FINDINGS: Visualized lung bases: Bibasilar atelectasis. Liver: Scattered hepatic cysts. Decreased attenuation of the liver consistent with steatosis. Gallbladder: Surgically absent. Spleen: Unremarkable Pancreas: Unremarkable Adrenal Glands: Unremarkable Kidneys: Cortical scarring of the left kidney. Simple 2.9 cm cyst in the lower pole of the right kidney. Vasculature: Moderate scattered aortoiliac atherosclerotic calcifications. GI Tract: Scattered diverticula throughout the colon without evidence of inflammation. The appendix is normal. Lymphadenopathy: None Peritoneum: No ascites. Bladder: There is mild circumferential bladder wall thickening with surrounding fat stranding. Reproductive organs: The prostate is mildly enlarged and contains several calcifications.. Bones/Soft tissues: There are diffuse degenerative changes of the spine. CT/Abdomen/Pelvis W IV Cont ONLY IMPRESSION: Findings suspicious for cystitis. Correlate with urinalysis. Mild prostatomegaly. Recommend correlation with PSA levels. Diverticulosis. Fatty liver. Electronically Signed: Junior Mejia MD at 17:38 EDT ,
[2023-09-28 15:29] LABS: Absolute Lymphocyte Count 2.72 X10^3/uL (0.83-4.51); Absolute Neutrophil Count 7.2 X10^3/uL (2.0-7.7); Basophil# 0.06 X10^3/uL; Basophil% 0.5 % (0-1); Eosinophil# 0.24 X10^3/uL; Eosinophils% 2.1 % (0-5); Hematocrit 43.7 % (40-54); Hemoglobin 14.3 g/dL (13.0-16.5); Lymphocyte # 2.72 X10^3/ul (0.83-4.51); Lymphocyte % 24.2 % (19-41); Mean Corp Hgb Conc 32.7 g/dL (32-36); Mean Corpuscular Hgb 30.4 pg (27.0-32.0); Mean Corpuscular Volume 92.8 fL (80-94); Mean Platelet Vol. 8.9 fl (6.2-12.0); Monocyte# 0.86 X10^3/uL; Monocyte% 7.7 % (0-10); NRBC Flagged by Analyzer 0 % (0-5); Neutrophil # 7.23 X10^3/uL (2.7-7.7); Neutrophil % 64.5 % (47-70); Platelet Count 342 K/mm3 (150-450); RBC Distribution Width SD 48.2 fl (35.1-43.9); Red Blood Count 4.71 M/mm3 (4.6-6.2); White Blood Count 11.2 K/mm3 (4.4-11.0)
--- NOTE | 2023-09-28 15:31 | EDS_ITS ---
HPI HPI - GI History of Present Illness Chief Complaint: Abd Pain Detail of Chief Complaint: Vomiting and diarrhea and abdominal pain Informant: patient Narrative Narrative: Patient presents with vomiting and diarrhea and abdominal pain. Patient also states that he is having dysuria and frequency. Patient started with symptoms about a week ago. Continues to have about 4-6 episodes of watery stool per day. He has been taken Imodium without much relief. Vomiting is has been intermittent. Abdominal discomfort is been intermittent. Denies fevers. Patient has had prior cholecystectomy. Denies sick contacts. He was on antibiotics about a month ago but he cannot remember for what. [facility] Medical History Hemorrhoids Hypersomnolence IVON (obstructive sleep apnea) Heart failure with reduced ejection fraction Flu vaccine need CKD (chronic kidney disease), stage III Type 2 diabetes mellitus Hyperglycemia Chronic diarrhea BPH (benign prostatic hyperplasia) Weight loss, non-intentional Atrial fibrillation senior care (current) use of anticoagulants Presence of stent in coronary artery (~02/21/13) Mixed hyperlipidemia CVA (cerebral vascular accident) Chronic systolic (congestive) heart failure Ischemic cardiomyopathy Atherosclerotic heart disease of [place] coronary artery without angina pectoris Essential hypertension Home Medications ?Medication ?Instructions ?Recorded ?Last Taken ?Type acetaminophen 500 mg tablet 1,000 mg PO PRN PRN Pain 08/22/17 09/28/23 History aspirin 81 mg chewable tablet 81 mg PO [facility] 08/22/17 09/27/23 History lactobacillus combination no.8 3 3,000 mmu cells PO DAILY supplement 09/02/19 09/28/23 History billion cell capsule (Adult Probiotic) blood sugar diagnostic (FreeStyle #100 ea 05/06/21 Unknown Rx Lite Strips) blood-glucose meter (FreeStyle #1 ea 05/06/21 Unknown Rx Lite Meter kit) lancets 28 gauge (FreeStyle #200 ea 05/06/21 Unknown Rx Lancets) magnesium 200 mg tablet 200 mg PO .1xaweek 04/24/22 09/28/23 History furosemide 40 mg tablet 20 mg (1/2 x 40 mg) PO DAILY 08/07/22 09/28/23 Rx diuretic #90 tabs blood glucose control, low (True #1 ea 08/11/22 Unknown Rx Metrix Level 1 solution) lancing device (TRUEdraw Lancing #1 ea 08/11/22 Unknown Rx Device) lancets 33 gauge (TRUEplus Lancets) #300 ea 10/27/22 Unknown Rx potassium chloride 10 mEq See Rx Instructions .Route 11/10/22 09/28/23 Rx capsule,extended release .COMPLEX #360 caps blood sugar diagnostic (True #300 ea 11/17/22 Unknown Rx Metrix Glucose Test Strip) alcohol swabs (DropSafe Alcohol See Rx Instructions .Route 11/27/22 Unknown Rx Prep Pads) .COMPLEX #200 swabs spironolactone 25 mg tablet 25 mg PO BID #180 tabs 11/27/22 09/28/23 Rx cyclobenzaprine 10 mg tablet 10 mg PO Q12H PRN Muscle Spasm 01/05/23 09/27/23 Rx #180 tabs sacubitril 49 mg-valsartan 51 mg 1 tab PO BID #180 tabs 01/14/23 09/28/23 Rx tablet (Entresto) trazodone 50 mg tablet 50 mg PO QHS sleep #90 tabs 01/22/23 09/27/23 Rx famotidine 20 mg tablet 20 mg PO DAILY #90 tabs 02/10/23 09/27/23 Rx glimepiride 4 mg tablet 4 mg PO BID 3 months #180 tabs 05/22/23 09/28/23 Rx metoprolol succinate 50 mg 50 mg PO DAILY #90 tabs 05/27/23 09/28/23 Rx tablet,extended release 24 hr pantoprazole 40 mg tablet,delayed 40 mg PO BID reflux #180 tabs 05/27/23 09/28/23 Rx release metformin 1,000 mg tablet 1,000 mg PO BID #180 tabs 06/03/23 09/28/23 Rx Handicap Placard #1 ea 07/20/23 Unknown Rx hydrocortisone 2.5 % topical cream 1 applic MA QD-BID PRN hemorrhoids 07/20/23 Unknown Rx with perineal applicator #30 grams warfarin 7.5 mg tablet See Rx Instructions .Route .COMPLEX 07/20/23 09/27/23 History atorvastatin 40 mg tablet 40 mg PO QHS #90 tabs 08/03/23 09/27/23 Rx Allergy/AdvReac Type Severity Reaction Status Date / Time gemfibrozil Allergy Intermediate upset Verified 09/28/23 13:40 stomach; constipation amiodarone AdvReac 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 esomeprazole magnesium (From AdvReac Diarrhea Verified 09/28/23 13:40 Nexium) Family History Mother CVA (cerebral vascular accident) Grandfather Heart disease Father Cancer testicular Sister Cancer Breast Surgical History History of cholecystectomy Presence of coronary angioplasty implant and graft (~02/21/13) History of cardiac radiofrequency ablation Presence of implantable cardioverter-defibrillator (ICD) (~06/21/13) Social History household members: spouse housing: house number of children: 3 current occupational status: retired current occupational exposures/hazards: No Smoking Status: Former smoker quit date: 02/09/15 pack-years: 122 Tobacco: How many years used: 61 Electronic Cigarette Use: not used second hand exposure: Yes alcohol intake: never substance use type: does not use ROS ROS ED Review of Systems ROS Unobtainable: other Constitutional Constitutional ED: Reports lethargy; Denies chills, fever(s), sweats or weight loss Eyes Eyes: Denies blurry vision, change in vision or diplopia ENT ENT ED: Denies rhinorrhea or sore throat Cardiovascular Cardiovascular: Denies chest pain, orthopnea or racing heartbeat Respiratory/Chest Respiratory/Chest: Denies cough, dyspnea, dyspnea on exertion, orthopnea or sputum Gastrointestinal Gastrointestinal: Reports abdominal pain, diarrhea, nausea and vomiting Genitourinary Genitourinary ED: Reports dysuria and hematuria; Denies urinary frequency Musculoskeletal Musculoskeletal: Denies arthralgias, back pain, myalgias or neck pain Integumentary Denies abscess, Abrasions or rash Neurologic Neurologic: Denies headache(s) or weakness Psychiatric Psychiatric: Denies anxiety, depression or suicidal thoughts Endocrine Endocrinology: Denies polydipsia, polyphagia or polyuria Hematologic/Lymphatic Hematologic/Lymphatic: Denies easy bleeding, easy bruising or lymphadenopathy Allergic/Immunologic Allergic/Immunologic ED: Denies mouth swelling, tongue swelling or urticaria EXAM Physical Exam Const Vital Signs: 09/28/23 13:38 09/28/23 15:37 09/28/23 17:00 Temperature 97.8 F Temperature Source Temporal Pulse Rate 90 78 68 Respiratory Rate 16 16 16 Blood Pressure 98/80 114/72 102/71 Blood Pressure Mean 86 86 81 Pulse Ox 96 97 98 Oxygen Delivery Method Room Air Room Air Room Air 09/28/23 17:56 Temperature 97.8 F Temperature Source Pulse Rate 81 Respiratory Rate 16 Blood Pressure 114/76 Blood Pressure Mean 88 Pulse Ox 99 Oxygen Delivery Method Positive well nourished and well developed General Appearance ED: well developed and NAD HEENT Reports TM's clear and moist mucous membranes normocephalic and atraumatic; Negative for trauma or tenderness Tympanic Membrane ED: Yes TM's clear Eyes PERRL and EOMs intact bilaterally General Eye ED: Negative for pale conjunctiva or scleral icterus Neck no lymphadenopathy, supple and no JVD General: Negative for tenderness Chest Wall inspection of chest normal and palpation of chest normal Chest: Negative for tenderness Resp normal respiratory effort and clear to auscultation bilaterally Effort and Inspection: Negative for respiratory distress or pain with movement Auscultation: Negative for rhonchi, wheezes or diminished lung sounds Cardio regular rate, regular rhythm, S1 normal heart sound, S2 normal heart sound and no murmurs Peripheral Pulses: pulses 2+ throughout GI normal to inspection, nondistended, normoactive bowel sounds, soft to palpation, non-distended and no masses GI Narrative: Tender to palpation over right lower quadrant with some guarding. There is no rebound, rigidity, or. No signs. No mass palpated Back/Spine no CVA tenderness and no thoracic nor lumbar tenderness Extremity normal to inspection General Extremety ED: Negative for edema General Extremity: Negative for edema Neuro oriented x3, CN's II-XII intact bilaterally, no sensory deficits noted and gait normal Sensorium / Orientation: awake, alert, oriented to person, oriented to place and oriented to time Motor Exam: strength 5/5 throughout and strength abnormal Psych mental status grossly normal Skin no rashes or lesions noted and no wounds MDM MDM MDM Narrative Medical decision making narrative: Patient presents to the emergency department with complaint of not feeling well for about a week or so. In the differential would be UTI versus viral gastroenteritis versus other acute intra-abdominal process. IV line established. He was given a liter [place] fluid bolus. CBC with differential obtained showed an elevated white count 11.2 with hemoglobin 14 and platelet count of 342. Chemistries unremarkable. INR was elevated 4.0. BUN 15 and creatinine 1.45. LFTs unremarkable. Urinalysis positive with 500 cassette esterase and greater than 100 WBCs and greater than 100 RBCs. Lactate elevated 2.3. Patient was started on Rocephin 1 g IV. He had a urine culture sent. CT scan of the abdomen pelvis obtained showed possible cystitis with enlarged prostate. On arrival patient's blood pressure somewhat soft at 98/80. He tells me his blood pressure typically runs low 100s. This point we will discuss with hospitalist to evaluate for admission. I did order stool for C. difficile as well as stool for enteric pathogens however he is not produced a sample as of yet. Given that he has had vomiting at home as well and signs of cystitis with elevated lactate recommended admission for IV hydration and IV antibiotics. Lab Data Attestation: I reviewed the patient's lab results. Labs: Laboratory Results - last 24 hr 09/28/23 09/28/23 09/28/23 14:25 15:15 15:35 WBC 11.2 H RBC 4.71 Hgb 14.3 Hct 43.7 MCV 92.8 MCH 30.4 MCHC 32.7 RDW Std Deviation 48.2 H RDW Coeff of Vane 14.0 Plt Count 342 MPV 8.9 Immature Gran % (Auto) 1.000 H Neut % (Auto) 64.5 Lymph % (Auto) 24.2 [place] % (Auto) 7.7 Eos % (Auto) 2.1 Baso % (Auto) 0.5 Absolute Neuts (auto) 7.2 Absolute Lymphs (auto) 2.72 Nucleated RBC % 0 PT 38.3 H INR 4.0 H* Sodium 136 Potassium 4.5 Chloride 104 Carbon Dioxide 25.0 Anion Gap 7 BUN 15 Creatinine 1.45 H Estim Creat Clear Calc 49.70 Est GFR (MDRD) Af Amer 61 Est GFR (MDRD) Non-Af 50 L BUN/Creatinine Ratio 10.3 Glucose 106 Lactic Acid Calcium 9.2 Total Bilirubin 1.00 AST 46 H ALT 56 Alkaline Phosphatase 99 Total Protein 8.1 Albumin 3.1 L Globulin 5.0 H Albumin/Globulin Ratio 0.6 L Urine Color Yellow Urine Clarity Clear Urine pH 5.0 Ur Specific [place] 1.015 Urine Protein 15 H Urine Glucose (UA) Normal Urine Ketones Negative Urine Occult Blood 250 H Urine Nitrite Negative Urine Bilirubin Negative Urine Urobilinogen Normal Ur Leukocyte Esterase 500 H Urine RBC > 100 SEEN Urine WBC >100 SEEN Ur Squamous Epith Cells 10-25 SEEN Urine Bacteria 2+ Urine Mucus 0 SEEN 09/28/23 16:46 WBC RBC Hgb Hct MCV MCH MCHC RDW Std Deviation RDW Coeff of Vane Plt Count MPV Immature Gran % (Auto) Neut % (Auto) Lymph % (Auto) [place] % (Auto) Eos % (Auto) Baso % (Auto) Absolute Neuts (auto) Absolute Lymphs (auto) Nucleated RBC % PT INR Sodium Potassium Chloride Carbon Dioxide Anion Gap BUN Creatinine Estim Creat Clear Calc Est GFR (MDRD) Af Amer Est GFR (MDRD) Non-Af BUN/Creatinine Ratio Glucose Lactic Acid 2.3 H* Calcium Total Bilirubin AST ALT Alkaline Phosphatase Total Protein Albumin Globulin Albumin/Globulin Ratio Urine Color Urine Clarity Urine pH Ur Specific [place] Urine Protein Urine Glucose (UA) Urine Ketones Urine Occult Blood Urine Nitrite Urine Bilirubin Urine Urobilinogen Ur Leukocyte Esterase Urine RBC Urine WBC Ur Squamous Epith Cells Urine Bacteria Urine Mucus Radiography Diagnostic Testing: Clinical Impression(s) from Imaging Studies Abdomen/Pelvis CT 09/28/23 15:28 IMPRESSION: Findings suspicious for cystitis. Correlate with urinalysis. Mild prostatomegaly. Recommend correlation with PSA levels. Diverticulosis. Fatty liver. Electronically Signed: Junior Mejia MD at 17:38 EDT , Discharge Plan Dx/Rx/DC Orders Clinical Impression: Acute UTI, Diarrhea, Acidosis, lactic Disposition Disposition: [facility] Discharge Date/Time: 09/28/23 18:47
[2023-09-28] MEDS: Ceftriaxone 1 GM/50 ML BAG IV (15:45)
[2023-09-28] MEDS: 0.9% Normal Saline (1000mL) 1,000 ML 999 ML IV ×2 (15:46→22:17)
[2023-09-28 15:52] LABS: ALB/GLOB Ratio 0.6 RATIO (0.9-2.4); AST(SGOT) 46 U/L (15-37); Alanine Aminotransfer ALT/SGPT 56 U/L (16-61); Albumin, Serum 3.1 g/dL (3.2-5.0); Alkaline Phosphatase 99 U/L (45-117); Anion Gap 7 (5-15); BUN 15 mg/dL (7-18); BUN/Creat Ratio 10.3 RATIO (10-20); Calcium,Total 9.2 mg/dL (8.5-10.1); Chloride 104 mmol/L (98-107); Creatinine, Serum 1.45 mg/dL (0.70-1.30); EST Glomerular Filtration Rate 50 mL/min (>60); Est Glom Filt Rate - Afr Amer 61 mL/min (>60); Glucose 106 mg/dL (74-106); Potassium 4.5 mmol/L (3.5-5.1); Protein, Total 8.1 g/dL (6.4-8.2); Sodium Level 136 mmol/L (136-145)
[2023-09-28 16:29] LABS: Prothrombin Time (Protime)PT. 38.3 SECONDS (11.7-14.9)
[2023-09-28 17:35] LABS: Lactic Acid 2.3 mmol/L (0.4-1.9)
--- NOTE | 2023-09-28 18:22 | PCM.HP.STD ---
[facility] - General General Date of Admission: 09/28/23 Date of Service: 09/28/23 Chief Complaint: Vomiting, diarrhea and abdominal pain. HPI Narrative LIZBETH CARRINGTON, is a 78 M who came to ED with 1 week history of increased frequency, burning micturition dysuria and sometimes hematuria. He states couple times he had dribbling of red urine like blood and then sometimes pinkish urine. He has not seen urologist recently but has incomplete emptying of bladder and possible BPH. As per he also had chills, fever and soaked with sweat a day before yesterday. He is not on antibiotic now but completed a month ago. His PCP is Dr. Hay. Patient also complaining of vomiting, couple loose bowel movements and abdominal discomfort. He said he felt sore in's suprapubic area but was not pain. His stool was more greenish in color. Denies melena or hematemesis. Patient has a history of chronic A-fib, cardiac stent and is on warfarin. INR was supratherapeutic in ED. In ED, his blood pressure was on lower side 98/80, which improved to 114/70 1:02 liter of normal saline bolus but again decreased to 102/71. Heart rate 90/min. 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 Presence of stent in coronary artery (~02/21/13) Mixed hyperlipidemia CVA (cerebral vascular accident) Chronic systolic (congestive) heart failure Ischemic cardiomyopathy Atherosclerotic heart disease of [place] coronary artery without angina pectoris Essential hypertension Home Medications ?Medication ?Instructions ?Recorded ?Last Taken ?Type acetaminophen 500 mg tablet 1,000 mg PO PRN PRN Pain 08/22/17 09/28/23 History aspirin 81 mg chewable tablet 81 mg PO QHS heart health 08/22/17 09/27/23 History lactobacillus combination no.8 3 3,000 mmu cells PO DAILY supplement 09/02/19 09/28/23 History billion cell capsule (Adult Probiotic) blood sugar diagnostic (FreeStyle #100 ea 05/06/21 Unknown Rx Lite Strips) blood-glucose meter (FreeStyle #1 ea 05/06/21 Unknown Rx Lite Meter kit) lancets 28 gauge (FreeStyle #200 ea 05/06/21 Unknown Rx Lancets) magnesium 200 mg tablet 200 mg PO .1xaweek 04/24/22 09/28/23 History furosemide 40 mg tablet 20 mg (1/2 x 40 mg) PO DAILY 08/07/22 09/28/23 Rx diuretic #90 tabs blood glucose control, low (True #1 ea 08/11/22 Unknown Rx Metrix Level 1 solution) lancing device (TRUEdraw Lancing #1 ea 08/11/22 Unknown Rx Device) lancets 33 gauge (TRUEplus Lancets) #300 ea 10/27/22 Unknown Rx potassium chloride 10 mEq See Rx Instructions .Route 11/10/22 09/28/23 Rx capsule,extended release .COMPLEX #360 caps blood sugar diagnostic (True #300 ea 11/17/22 Unknown Rx Metrix Glucose Test Strip) alcohol swabs (DropSafe Alcohol See Rx Instructions .Route 11/27/22 Unknown Rx Prep Pads) .COMPLEX #200 swabs spironolactone 25 mg tablet 25 mg PO BID #180 tabs 11/27/22 09/28/23 Rx cyclobenzaprine 10 mg tablet 10 mg PO Q12H PRN Muscle Spasm 01/05/23 09/27/23 Rx #180 tabs sacubitril 49 mg-valsartan 51 mg 1 tab PO BID #180 tabs 01/14/23 09/28/23 Rx tablet (Entresto) trazodone 50 mg tablet 50 mg PO QHS sleep #90 tabs 01/22/23 09/27/23 Rx famotidine 20 mg tablet 20 mg PO DAILY #90 tabs 02/10/23 09/27/23 Rx glimepiride 4 mg tablet 4 mg PO BID 3 months #180 tabs 05/22/23 09/28/23 Rx metoprolol succinate 50 mg 50 mg PO DAILY #90 tabs 05/27/23 09/28/23 Rx tablet,extended release 24 hr pantoprazole 40 mg tablet,delayed 40 mg PO BID reflux #180 tabs 05/27/23 09/28/23 Rx release metformin 1,000 mg tablet 1,000 mg PO BID #180 tabs 06/03/23 09/28/23 Rx Handicap Placard #1 ea 07/20/23 Unknown Rx hydrocortisone 2.5 % topical cream 1 applic AL QD-BID PRN hemorrhoids 07/20/23 Unknown Rx with perineal applicator #30 grams warfarin 7.5 mg tablet See Rx Instructions .Route .COMPLEX 07/20/23 09/27/23 History atorvastatin 40 mg tablet 40 mg PO QHS #90 tabs 08/03/23 09/27/23 Rx Allergy/AdvReac Type Severity Reaction Status Date / Time gemfibrozil Allergy Intermediate upset Verified 09/28/23 13:40 stomach; constipation amiodarone AdvReac 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 esomeprazole magnesium (From AdvReac Diarrhea Verified 09/28/23 13:40 Nexium) Family History Mother CVA (cerebral vascular accident) Grandfather Heart disease Father Cancer testicular Sister Cancer Breast Surgical History History of cholecystectomy Presence of coronary angioplasty implant and graft (~02/21/13) History of cardiac radiofrequency ablation Presence of implantable cardioverter-defibrillator (ICD) (~06/21/13) Social History household members: spouse housing: house number of children: 3 current occupational status: retired current occupational exposures/hazards: No Smoking Status: Former smoker quit date: 02/09/15 pack-years: 122 Tobacco: How many years used: 61 Electronic Cigarette Use: not used second hand exposure: Yes alcohol intake: never substance use type: does not use ROS ROS Narrative Constitutional: Reports acute onset of fatigue, generalized weakness. Fever chills and diaphoresis and sweating HEENT: Reports systems reviewed and no addt'l complaints, except as documented Respiratory/Chest: No acute shortness of breath or respiratory distress or wheezing. CVS: No chest pain or shortness of breath. Chronic A-fib on warfarin Gastrointestinal: Denies coffee ground emesis, hematemesis or melena. Vomiting. Rest as described in HPI Genitourinary: Burning micturition, hematuria described in HPI. History of kidney stone in the past. Musculoskeletal: Denies acute joint pain or limited range of motion. No acute injury Neurologic: Denies seizure-like symptoms. no acute strokelike symptoms. skin: No ulcer. No rash Endocrinology: Reports systems reviewed and no addt'l complaints, except as documented Hematologic/Lymphatic: Reports systems reviewed and no addt'l complaints, except as documented Rest 14 ROS are negative except as mentioned in HPI Vital Signs Vital Signs Vital Signs: 09/28/23 13:38 09/28/23 15:37 09/28/23 17:00 Temperature 97.8 F Temperature Source Temporal Pulse Rate 90 78 68 Respiratory Rate 16 16 16 Blood Pressure 98/80 114/72 102/71 Blood Pressure Mean 86 86 81 Pulse Ox 96 97 98 Oxygen Delivery Method Room Air Room Air Room Air 09/28/23 17:56 Temperature 97.8 F Temperature Source Pulse Rate 81 Respiratory Rate 16 Blood Pressure 114/76 Blood Pressure Mean 88 Pulse Ox 99 Oxygen Delivery Method Weight Weight: 213 lb Body Mass Index (BMI) 31.4 Physical Exam Narrative General: Alert, Oriented x3, Cooperative HEENT: Atraumatic, PERRLA, EOMI, Normocephalic Oral: Oral mucosa dry. No Gingival or Mucosal Lesions/ Ulcerations Neck: Supple, No JVD, Negative Carotid Bruits Chest wall/Lungs: Air entry diminished in bilateral lung bases. No crepitation/rhonchi Cardiovascular: Regular rhythm, Normal S1, Normal S2, no murmur gallop rub Abdomen: Bowel Sounds Present, Soft, Non Tender, Non-Distended : Mild suprapubic tenderness. No renal angle tenderness. Hematuria. Extremities: No edema, Capillary Refill Less than 3 Seconds Skin: No rashes, No breakdown Musculoskeletal: No Tenderness to Palpation of Joints or Extremities Neurological: Cranial nerves II-XII grossly intact, DTR 2+/4. No acute focal neurological deficit. Psych/Mental Status: Normal Affect, Appropriate. Results Lab / Micro Data 09/28/23 15:15 09/28/23 15:15 Labs: Laboratory Results - last 24 hr 09/28/23 14:25: Urine Color Yellow, Urine Clarity Clear, Urine pH 5.0, Ur Specific [place] 1.015, Urine Protein 15 H, Urine Glucose (UA) Normal, Urine Ketones Negative, Urine Occult Blood 250 H, Urine Nitrite Negative, Urine Bilirubin Negative, Urine Urobilinogen Normal, Ur Leukocyte Esterase 500 H, Urine RBC > 100 SEEN, Urine WBC >100 SEEN, Ur Squamous Epith Cells 10-25 SEEN, Urine Bacteria 2+, Urine Mucus 0 SEEN 09/28/23 15:15: WBC 11.2 H, RBC 4.71, Hgb 14.3, Hct 43.7, MCV 92.8, MCH 30.4, MCHC 32.7, RDW Std Deviation 48.2 H, RDW Coeff of Vane 14.0, Plt Count 342, MPV 8.9, Immature Gran % (Auto) 1.000 H, Neut % (Auto) 64.5, Lymph % (Auto) 24.2, [place] % (Auto) 7.7, Eos % (Auto) 2.1, Baso % (Auto) 0.5, Absolute Neuts (auto) 7.2, Absolute Lymphs (auto) 2.72, Nucleated RBC % 0, Sodium 136, Potassium 4.5, Chloride 104, Carbon Dioxide 25.0, Anion Gap 7, BUN 15, Creatinine 1.45 H, Estim Creat Clear Calc 49.70, Est GFR (MDRD) Af Amer 61, Est GFR (MDRD) Non-Af 50 L, BUN/Creatinine Ratio 10.3, Glucose 106, Calcium 9.2, Total Bilirubin 1.00, AST 46 H, ALT 56, Alkaline Phosphatase 99, Total Protein 8.1, Albumin 3.1 L, Globulin 5.0 H, Albumin/Globulin Ratio 0.6 L 09/28/23 15:35: PT 38.3 H, INR 4.0 H* 09/28/23 16:46: Lactic Acid 2.3 H* Imaging Radiology Impression Abdomen/Pelvis CT 09/28/23 15:28 IMPRESSION: Findings suspicious for cystitis. Correlate with urinalysis. Mild prostatomegaly. Recommend correlation with PSA levels. Diverticulosis. Fatty liver. Electronically Signed: Junior Mejia MD at 17:38 EDT , Assessment & Plan Assessment/Plan (1) Acute UTI: PLAN: Plan This is 78-year-old gentleman came to ED with 1 week history of vomiting, loose stool, dysuria and hematuria 1. Acute UTI: Patient is being admitted in PCU. Patient blood pressure was low but did not meet criteria for hypotension yet. Lactic acidosis 2.3 suggestive of decreased perfusion. Patient has SIRS criteria with fever, heart rate 90 and leukocytosis. Does not meet criteria of sepsis yet. IV fluid resuscitation bolus 1 L to keep MAP more than 65, SBP more than 90. Restated IV fluid patient has low EF with severe chronic heart failure CT abdomen/pelvis shows features suspicious of cystitis with bladder wall thickening. Prostamegaly. UA positive of hematuria, pyuria, LE but nitrite normal. 2+ bacteriuria. IV ceftriaxone given. Advised bladder scan every 4 hours as patient complained of incomplete emptying of bladder.. Urologist Dr. Campos consulted. Patient is started on Flomax. 2. Nausea, vomiting and loose bowel movement probably related to infection/UTI. Gallbladder surgically absent. Pancreas and spleen reported normal. GI tract scattered diverticula throughout the limitation. Appendix normal. No ascites. C. difficile and enteric bacteriology panel ordered by ER physician. Low suspicion for gastroenteritis or C. difficile infection 3. Paroxysmal A-fib status post radiofrequency ablation in 2016 and 2017: Twelve-lead EKG ordered. Hold warfarin and baby aspirin for now. INR supratherapeutic. 4. Type 2 diabetes mellitus: A1c 6.8 recently. Hold metformin glimepiride and other oral antidiabetic medications as patient has lactic acid. Accu-Chek before meals and at bedtime with Humalog sliding scale coverage and hypoglycemia protocol. 5. Hypertension: Hold antihypertensive medication as blood pressure is on lower side 6. Chronic severe systolic heart failure, NYHA class III status post AICD: Patient had echo in April 2022 reported EF 15%. Generator change was in June 2021. Patient on metoprolol, Lasix 20 mg, Entresto and spironolactone will hold it for now and then resume when blood pressure improves. 7. Dyslipidemia: On atorvastatin 40 mg daily. Echo April 2022 Interpretation Summary The study was technically difficult. Contrast injection was performed. Severely dilated left ventricle. Severe segmental systolic dysfunction (see wall motion). The estimated ejection fraction is 15 %. The left atrium is mildly enlarged. Mild (1+) mitral valve insufficiency. Trivial tricuspid valve insufficiency. Epicardial fat. Unable to estimate RV systolic pressure/pulmonary artery pressure due to technically difficult study. No evidence for diastolic dysfunction. Living will/advanced directive/end of life care: Patient does have living will or advanced directive. 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 After discussion of benefits/risks procedures involved with full code, DNR CC arrest and DNR CC, the patient and his agreed for DNR CC arrest. Patient doesn't want artificial life support including intubation, tube feed, ventilator and/chest compression, central venous catheter, vasopressor and DC shock if needed Total time spent in [id number] encounter in discussion of advanced directive 17 minutes. Laboratory Results 09/28/23 14:25: Urine Color Yellow, Urine Clarity Clear, Urine pH 5.0, Ur Specific [place] 1.015, Urine Protein 15 H, Urine Glucose (UA) Normal, Urine Ketones Negative, Urine Occult Blood 250 H, Urine Nitrite Negative, Urine Bilirubin Negative, Urine Urobilinogen Normal, Ur Leukocyte Esterase 500 H, Urine RBC > 100 SEEN, Urine WBC >100 SEEN, Ur Squamous Epith Cells 10-25 SEEN, Urine Bacteria 2+, Urine Mucus 0 SEEN 09/28/23 15:15: WBC 11.2 H, RBC 4.71, Hgb 14.3, Hct 43.7, MCV 92.8, MCH 30.4, MCHC 32.7, RDW Std Deviation 48.2 H, RDW Coeff of Vane 14.0, Plt Count 342, MPV 8.9, Immature Gran % (Auto) 1.000 H, Neut % (Auto) 64.5, Lymph % (Auto) 24.2, [place] % (Auto) 7.7, Eos % (Auto) 2.1, Baso % (Auto) 0.5, Absolute Neuts (auto) 7.2, Absolute Lymphs (auto) 2.72, Nucleated RBC % 0, Sodium 136, Potassium 4.5, Chloride 104, Carbon Dioxide 25.0, Anion Gap 7, BUN 15, Creatinine 1.45 H, Estim Creat Clear Calc 49.70, Est GFR (MDRD) Af Amer 61, Est GFR (MDRD) Non-Af 50 L, BUN/Creatinine Ratio 10.3, Glucose 106, Calcium 9.2, Total Bilirubin 1.00, AST 46 H, ALT 56, Alkaline Phosphatase 99, Total Protein 8.1, Albumin 3.1 L, Globulin 5.0 H, Albumin/Globulin Ratio 0.6 L 09/28/23 15:35: PT 38.3 H, INR 4.0 H* 09/28/23 16:46: Lactic Acid 2.3 H* Clinical Impression(s) from Imaging Studies Abdomen/Pelvis CT 09/28/23 15:28 IMPRESSION: Findings suspicious for cystitis. Correlate with urinalysis. Mild prostatomegaly. Recommend correlation with PSA levels. Diverticulosis. Fatty liver. Electronically Signed: Junior Mejia MD at 17:38 EDT , Charges/Coding Visit Charges Inpatient E&M: 96682 Init Hosp L3 Procedures Hospitalists Procedures: 09658 Advncd Care Plan 30 Min
--- NOTE | 2023-09-28 18:43 | EKG12_ITS ---
Test Reason : DR ORDER Blood Pressure : / mmHG Vent. Rate : 096 BPM Atrial Rate : 096 BPM P-R Int : 152 ms QRS Dur : 094 ms QT Int : 372 ms P-R-T Axes : 035 -51 058 degrees QTc Int : 469 ms Normal sinus rhythm Left axis deviation Low voltage QRS Possible Lateral infarct (cited on or before 19-MAR-2015) Inferior infarct (cited on or before 11-JUN-2013) Abnormal ECG When compared with ECG of 18-JUN-2020 22:53, Vent. rate has increased BY 35 BPM Questionable change in initial forces of Anterior leads Confirmed by STEFANIA TRAVIS, ABEBA ([id number]), web content editor MANJULA GREGORY ([id number]) on 10/02/2023 7:24:27 AM Referred By: Confirmed By:SAMPSON AGUIAR MD
[2023-09-28 19:10] LABS: Partial Thromboplast Time 64.9 Seconds (24.1-36.2)
[2023-09-28 19:28] LABS: CPK Total, Creatine Kinase 116 U/L (39-308)
[2023-09-28 20:50] LABS: Reflex Lactate? Y
[2023-09-28] MEDS: Atorvastatin Calcium 40 MG Tablet PO (20:52)
[2023-09-28] MEDS: Tamsulosin HCl 0.4 MG Capsule PO (20:53)
[2023-09-28] MEDS: Acetaminophen 500 MG Tablet 1000 MG PO (20:53)
[2023-09-28] MEDS: Pantoprazole Sodium 40 MG Tablet PO (20:53)
[2023-09-28 21:57] LABS: Lactic Acid 3.8 mmol/L (0.4-1.9)
[2023-09-29 03:04] LABS: Lactic Acid 1.9 mmol/L (0.4-1.9)
[2023-09-29 03:25] VITALS: BP 115/84; PULSE 75; RESP 14; TEMP 36.1; O2SAT 95
[2023-09-29 06:03] LABS: Absolute Lymphocyte Count 2.67 X10^3/uL (0.83-4.51); Absolute Neutrophil Count 4.3 X10^3/uL (2.0-7.7); Basophil# 0.04 X10^3/uL; Basophil% 0.5 % (0-1); Eosinophil# 0.22 X10^3/uL; Eosinophils% 2.8 % (0-5); Hematocrit 38.3 % (40-54); Hemoglobin 12.7 g/dL (13.0-16.5); Lymphocyte # 2.67 X10^3/ul (0.83-4.51); Lymphocyte % 33.8 % (19-41); Mean Corp Hgb Conc 33.2 g/dL (32-36); Mean Corpuscular Hgb 30.7 pg (27.0-32.0); Mean Corpuscular Volume 92.5 fL (80-94); Monocyte# 0.58 X10^3/uL; Monocyte% 7.4 % (0-10); NRBC Flagged by Analyzer 0 % (0-5); Neutrophil # 4.27 X10^3/uL (2.7-7.7); Neutrophil % 54.1 % (47-70); Platelet Count 288 K/mm3 (150-450); RBC Distribution Width CV 14.3 % (11.6-14.6); RBC Distribution Width SD 48.4 fl (35.1-43.9); Red Blood Count 4.14 M/mm3 (4.6-6.2); White Blood Count 7.9 K/mm3 (4.4-11.0)
[2023-09-29 06:26] LABS: International Normalized Ratio 3.9
[2023-09-29 06:45] LABS: Anion Gap 7 (5-15); BUN 10 mg/dL (7-18); BUN/Creat Ratio 9.3 RATIO (10-20); Calcium,Total 8.4 mg/dL (8.5-10.1); Chloride 107 mmol/L (98-107); Creatinine, Serum 1.07 mg/dL (0.70-1.30); EST Glomerular Filtration Rate 71 mL/min (>60); Est Glom Filt Rate - Afr Amer 86 mL/min (>60); Estimated Creatinine Clearance 67.14 ml/min; Glucose 109 mg/dL (74-106); Potassium 3.8 mmol/L (3.5-5.1); Sodium Level 137 mmol/L (136-145)
[2023-09-29 06:52] LABS: Bedside Glucose 111 mg/dL (74-106)
--- NOTE | 2023-09-29 07:32 | CON.PCM.UR_ITS ---
Assessment & Plan Assessment/Plan (1) Acute UTI: (2) Gross hematuria: PLAN: 78-year-old male with gross hematuria probably from a urinary tract infection CAT scan looks okay he can go home with antibiotics and tamsulosin once he is medically stable and can follow-up in my office for checkup. Call me with questions HPI Consult Data Date of Consult: 09/29/23 HPI Narrative Reason for Consultation: Gross hematuria UTI HPI Narrative: LIZBETH CARRINGTON, is a 78 M who presents to the hospital with a urinary tract infection and BPH with obstruction he has been started on antibiotics and also given tamsulosin. This morning he reports to be having some blood in the urine off-and-on but now it is clearing up I reviewed his CAT scan and he does have a slightly enlarged prostate some mild thickening in the bladder but no obvious tumors or stones within the bladder no abnormalities along the ureter or both the kidneys no stones no blockage. I suspect that the most likely cause of his gross hematuria is from the UTI I do not plan to do any intervention at this point. 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) use of anticoagulants Presence of stent in coronary artery (~02/21/13) Mixed hyperlipidemia CVA (cerebral vascular accident) Chronic systolic (congestive) heart failure Ischemic cardiomyopathy Atherosclerotic heart disease of [place] coronary artery without angina pectoris Essential hypertension Home Medications ?Medication ?Instructions ?Recorded ?Last Taken ?Type acetaminophen 500 mg tablet 1,000 mg PO PRN PRN Pain 08/22/17 09/28/23 History aspirin 81 mg chewable tablet 81 mg PO QHS heart health 08/22/17 09/27/23 History lactobacillus combination no.8 3 3,000 mmu cells PO DAILY supplement 09/02/19 09/28/23 History billion cell capsule (Adult Probiotic) blood sugar diagnostic (FreeStyle #100 ea 05/06/21 Unknown Rx Lite Strips) blood-glucose meter (FreeStyle #1 ea 05/06/21 Unknown Rx Lite Meter kit) lancets 28 gauge (FreeStyle #200 ea 05/06/21 Unknown Rx Lancets) magnesium 200 mg tablet 200 mg PO .1xaweek 04/24/22 09/28/23 History furosemide 40 mg tablet 20 mg (1/2 x 40 mg) PO DAILY 08/07/22 09/28/23 Rx diuretic #90 tabs blood glucose control, low (True #1 ea 08/11/22 Unknown Rx Metrix Level 1 solution) lancing device (TRUEdraw Lancing #1 ea 08/11/22 Unknown Rx Device) lancets 33 gauge (TRUEplus Lancets) #300 ea 10/27/22 Unknown Rx potassium chloride 10 mEq See Rx Instructions .Route 11/10/22 09/28/23 Rx capsule,extended release .COMPLEX #360 caps blood sugar diagnostic (True #300 ea 11/17/22 Unknown Rx Metrix Glucose Test Strip) alcohol swabs (DropSafe Alcohol See Rx Instructions .Route 11/27/22 Unknown Rx Prep Pads) .COMPLEX #200 swabs spironolactone 25 mg tablet 25 mg PO BID #180 tabs 11/27/22 09/28/23 Rx cyclobenzaprine 10 mg tablet 10 mg PO Q12H PRN Muscle Spasm 01/05/23 09/27/23 Rx #180 tabs sacubitril 49 mg-valsartan 51 mg 1 tab PO BID #180 tabs 01/14/23 09/28/23 Rx tablet (Entresto) trazodone 50 mg tablet 50 mg PO QHS sleep #90 tabs 01/22/23 09/27/23 Rx famotidine 20 mg tablet 20 mg PO DAILY #90 tabs 02/10/23 09/27/23 Rx glimepiride 4 mg tablet 4 mg PO BID 3 months #180 tabs 05/22/23 09/28/23 Rx metoprolol succinate 50 mg 50 mg PO DAILY #90 tabs 05/27/23 09/28/23 Rx tablet,extended release 24 hr pantoprazole 40 mg tablet,delayed 40 mg PO BID reflux #180 tabs 05/27/23 09/28/23 Rx release metformin 1,000 mg tablet 1,000 mg PO BID #180 tabs 06/03/23 09/28/23 Rx Handicap Placard #1 ea 07/20/23 Unknown Rx hydrocortisone 2.5 % topical cream 1 applic AL QD-BID PRN hemorrhoids 07/20/23 Unknown Rx with perineal applicator #30 grams warfarin 7.5 mg tablet See Rx Instructions .Route .COMPLEX 07/20/23 09/27/23 History atorvastatin 40 mg tablet 40 mg PO QHS #90 tabs 08/03/23 09/27/23 Rx Allergy/AdvReac Type Severity Reaction Status Date / Time gemfibrozil Allergy Intermediate upset Verified 09/28/23 13:40 stomach; constipation amiodarone AdvReac 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 esomeprazole magnesium (From AdvReac Diarrhea Verified 09/28/23 13:40 Nexium) Family History Mother CVA (cerebral vascular accident) Grandfather Heart disease Father Cancer testicular Sister Cancer Breast Surgical History History of cholecystectomy Presence of coronary angioplasty implant and graft (~02/21/13) History of cardiac radiofrequency ablation Presence of implantable cardioverter-defibrillator (ICD) (~06/21/13) Social History household members: spouse housing: house number of children: 3 current occupational status: retired current occupational exposures/hazards: No Smoking Status: Former smoker quit date: 02/09/15 pack-years: 122 Tobacco: How many years used: 61 Electronic Cigarette Use: not used second hand exposure: Yes alcohol intake: never substance use type: does not use ROS Constitutional Constitutional: Denies chills, fever(s) or malaise Eyes Eyes: Denies blurry vision or change in vision ENT HEENT: Reports none Cardiovascular Cardiovascular: Denies chest pain or palpitations Respiratory/Chest Respiratory/Chest: Denies cough or shortness of breath with exertion Gastrointestinal Gastrointestinal: Denies abdominal pain, constipation or diarrhea Musculoskeletal Musculoskeletal: Denies back pain, joint stiffness or joint swelling Integumentary Integumentary: Denies dry skin, jaundice, lesions or rash Neurologic Neurologic: Denies confusion, syncope or weakness Psychiatric Psychiatric: Reports none; Denies anxiety or depression Endocrine Endocrinology: Denies excessive sweating, fatigue or flushing Hematologic/Lymphatic Hematologic/Lymphatic: Denies anemia, easy bleeding or easy bruising Physical Exam Const alert and oriented x3 General Appearance: cooperative HEENT normocephalic and head/scalp atraumatic Eyes PERRL and EOMs intact bilaterally Neck supple, no JVD and no carotid bruits Resp normal respiratory effort, normal air movement and clear to auscultation bilaterally Cardio regular rate and no murmurs GI normal to inspection, nondistended, normoactive bowel sounds and soft to palpation Extremity normal capillary refill General Extremity: no tenderness to palpation of joints or extremities; Negative for edema Skin no rashes or lesions noted and no wounds General Skin Exam: no breakdown Neuro CN's II-XII intact bilaterally Psych affect normal Appearance: appropriate Lab / Micro Data 09/29/23 05:47 09/29/23 05:42 Labs: Laboratory Results - last 24 hr 09/28/23 14:25: Urine Color Yellow, Urine Clarity Clear, Urine pH 5.0, Ur Specific [place] 1.015, Urine Protein 15 H, Urine Glucose (UA) Normal, Urine Ketones Negative, Urine Occult Blood 250 H, Urine Nitrite Negative, Urine Bilirubin Negative, Urine Urobilinogen Normal, Ur Leukocyte Esterase 500 H, Urine RBC > 100 SEEN, Urine WBC >100 SEEN, Ur Squamous Epith Cells 10-25 SEEN, Urine Bacteria 2+, Urine Mucus 0 SEEN 09/28/23 15:15: WBC 11.2 H, RBC 4.71, Hgb 14.3, Hct 43.7, MCV 92.8, MCH 30.4, MCHC 32.7, RDW Std Deviation 48.2 H, RDW Coeff of Vane 14.0, Plt Count 342, MPV 8.9, Immature Gran % (Auto) 1.000 H, Neut % (Auto) 64.5, Lymph % (Auto) 24.2, [place] % (Auto) 7.7, Eos % (Auto) 2.1, Baso % (Auto) 0.5, Absolute Neuts (auto) 7.2, Absolute Lymphs (auto) 2.72, Nucleated RBC % 0, Sodium 136, Potassium 4.5, Chloride 104, Carbon Dioxide 25.0, Anion Gap 7, BUN 15, Creatinine 1.45 H, Estim Creat Clear Calc 49.70, Est GFR (MDRD) Af Amer 61, Est GFR (MDRD) Non-Af 50 L, BUN/Creatinine Ratio 10.3, Glucose 106, Calcium 9.2, Total Bilirubin 1.00, AST 46 H, ALT 56, Alkaline Phosphatase 99, Total Protein 8.1, Albumin 3.1 L, G lobulin 5.0 H, Albumin/Globulin Ratio 0.6 L 09/28/23 15:35: PT 38.3 H, INR 4.0 H* 09/28/23 16:46: Lactic Acid 2.3 H* 09/28/23 18:45: APTT 64.9 H, Total Creatine Kinase 116 09/28/23 21:20: Lactic Acid 3.8 H* 09/29/23 02:30: Lactic Acid 1.9 09/29/23 05:42: PT 38.0 H, INR 3.9, Sodium 137, Potassium 3.8, Chloride 107, Carbon Dioxide 23.0, Anion Gap 7, BUN 10, Creatinine 1.07, Estim Creat Clear Calc 67.14, Est GFR (MDRD) Af Amer 86, Est GFR (MDRD) Non-Af 71, BUN/Creatinine Ratio 9.3 L, Glucose 109 H, Calcium 8.4 L 09/29/23 05:47: WBC 7.9, RBC 4.14 L, Hgb 12.7 L, Hct 38.3 L, MCV 92.5, MCH 30.7, MCHC 33.2, RDW Std Deviation 48.4 H, RDW Coeff of Vane 14.3, Plt Count 288, MPV 9.0, Immature Gran % (Auto) 1.400 H, Neut % (Auto) 54.1, Lymph % (Auto) 33.8, [place] % (Auto) 7.4, Eos % (Auto) 2.8, Baso % (Auto) 0.5, Absolute Neuts (auto) 4.3, Absolute Lymphs (auto) 2.67, Nucleated RBC % 0 09/29/23 06:32: POC Glucose 111 H Imaging Radiology Impression Abdomen/Pelvis CT 09/28/23 15:28 IMPRESSION: Findings suspicious for cystitis. Correlate with urinalysis. Mild prostatomegaly. Recommend correlation with PSA levels. Diverticulosis. Fatty liver. Electronically Signed: Junior Mejia MD at 17:38 EDT ,
[2023-09-29 08:56] VITALS: BP 112/80; PULSE 90; RESP 18; TEMP 36.6; O2SAT 95
[2023-09-29 09:00] VITALS: PULSE 90
[2023-09-29] MEDS: Metoprolol(XL)Succ 50 MG Tablet PO (09:00)
[2023-09-29] MEDS: Ceftriaxone 1 GM/50 ML BAG IV (09:00)
[2023-09-29] MEDS: 0.9% Saline Lock 10 ML Syringe IV (09:00)
[2023-09-29] MEDS: Pantoprazole Sodium 40 MG Tablet PO ×2 (09:00→21:24)
--- NOTE | 2023-09-29 11:05 | CASEMGMT ---
RN CM Face to Face with patient for initial transition planning/care coordination assessment. RN CM introduced self and role at [facility]. Patient lying in bed, alert and oriented. Patient willing to participate in assessment and is able to answer all questions appropriately. Care providers, pharmacy, and demographics verified. Strata: 2 PCP: [facility] Specialists: Lei, procurement technician; Chelsea Wong, machine inker; Coco, door assembler Preferred Pharmacy: [facility] Insurance: [employer] [facility] Prescription Benefit: yes Living Will/HPOA: yes, Britany Wade LNOK: Living Arrangements: Patient lives with in a 2 story home. Patient is independent and able to ambulate stairs. Transportation: [facility] Van, friends DME/HHC: Patient has shower chair, cane, walker, rollator, wheelchair, grab bars, pulse ox, home oxygen through [employer] 2.5 lpm at . Patient has had [facility] he past. Patient wishes to discharge home, denies need for home health at this time. Patient states he has no further needs or concerns at this time. CM to follow for discharge planning needs that may arise. Disposition Plan: Patient to discharge home with family support and follow-up plans in place. Keri SANCHEZ, RN, CM
--- NOTE | 2023-09-29 13:16 | PN_ITS ---
Subjective Subjective Patient seen and examined. He said he felt much better. Diarrhea had resolved. He denied any burning with urination. Review of systems is otherwise negative. Objective Data Objective Data Vital Signs: Vital Signs Temp Pulse Resp BP Pulse Ox O2 Del Method 98 F 90 18 112/80 95 Room Air 09/29/23 08:56 09/29/23 09:00 09/29/23 08:56 09/29/23 08:56 09/29/23 08:56 09/29/23 09:13 Oxygen Delivery Method Room Air Weight: 211 lb 10.3 oz Body Mass Index (BMI) 31.2 Intake & Output: Intake and Output for Last 24 Hours 09/27/23 09/28/23 09/29/23 23:59 23:59 23:59 Intake Total 2049 600 / 600 Output Total Balance 2049 598 / 598 Lab / Micro Data 09/29/23 05:47 09/29/23 05:42 Labs: Laboratory Results - last 24 hr 09/28/23 14:25: Urine Color Yellow, Urine Clarity Clear, Urine pH 5.0, Ur Specific [place] 1.015, Urine Protein 15 H, Urine Glucose (UA) Normal, Urine Ketones Negative, Urine Occult Blood 250 H, Urine Nitrite Negative, Urine Bilirubin Negative, Urine Urobilinogen Normal, Ur Leukocyte Esterase 500 H, Urine RBC > 100 SEEN, Urine WBC >100 SEEN, Ur Squamous Epith Cells 10-25 SEEN, Urine Bacteria 2+, Urine Mucus 0 SEEN 09/28/23 15:15: WBC 11.2 H, RBC 4.71, Hgb 14.3, Hct 43.7, MCV 92.8, MCH 30.4, MCHC 32.7, RDW Std Deviation 48.2 H, RDW Coeff of Vane 14.0, Plt Count 342, MPV 8.9, Immature Gran % (Auto) 1.000 H, Neut % (Auto) 64.5, Lymph % (Auto) 24.2, Tucker % (Auto) 7.7, Eos % (Auto) 2.1, Baso % (Auto) 0.5, Absolute Neuts (auto) 7.2, Absolute Lymphs (auto) 2.72, Nucleated RBC % 0, Sodium 136, Potassium 4.5, Chloride 104, Carbon Dioxide 25.0, Anion Gap 7, BUN 15, Creatinine 1.45 H, Estim Creat Clear Calc 49.70, Est GFR (MDRD) Af Amer 61, Est GFR (MDRD) Non-Af 50 L, BUN/Creatinine Ratio 10.3, Glucose 106, Calcium 9.2, Total Bilirubin 1.00, AST 46 H, ALT 56, Alkaline Phosphatase 99, Total Protein 8.1, Albumin 3.1 L, G lobulin 5.0 H, Albumin/Globulin Ratio 0.6 L 09/28/23 15:35: PT 38.3 H, INR 4.0 H* 09/28/23 16:46: Lactic Acid 2.3 H* 09/28/23 18:45: APTT 64.9 H, Total Creatine Kinase 116 09/28/23 21:20: Lactic Acid 3.8 H* 09/29/23 02:30: Lactic Acid 1.9 09/29/23 05:42: PT 38.0 H, INR 3.9, Sodium 137, Potassium 3.8, Chloride 107, Carbon Dioxide 23.0, Anion Gap 7, BUN 10, Creatinine 1.07, Estim Creat Clear Calc 67.14, Est GFR (MDRD) Af Amer 86, Est GFR (MDRD) Non-Af 71, BUN/Creatinine Ratio 9.3 L, Glucose 109 H, Calcium 8.4 L 09/29/23 05:47: WBC 7.9, RBC 4.14 L, Hgb 12.7 L, Hct 38.3 L, MCV 92.5, MCH 30.7, MCHC 33.2, RDW Std Deviation 48.4 H, RDW Coeff of Vane 14.3, Plt Count 288, MPV 9.0, Immature Gran % (Auto) 1.400 H, Neut % (Auto) 54.1, Lymph % (Auto) 33.8, Tucker % (Auto) 7.4, Eos % (Auto) 2.8, Baso % (Auto) 0.5, Absolute Neuts (auto) 4.3, Absolute Lymphs (auto) 2.67, Nucleated RBC % 0 09/29/23 06:32: POC Glucose 111 H Micro: Microbiology 09/28/23 14:25 Urine, Clean Catch Urine Culture - Preliminary Presumptive E. coli Radiography Diagnostic Testing: Radiology Impression Abdomen/Pelvis CT 08/19/24 15:28 IMPRESSION: Findings suspicious for cystitis. Correlate with urinalysis. Mild prostatomegaly. Recommend correlation with PSA levels. Diverticulosis. Fatty liver. Electronically Signed: Junior Mejia MD at 17:38 EDT , Physical Exam Const alert, oriented x3, no apparent distress and well nourished General Appearance: cooperative and well developed HEENT normocephalic, head/scalp atraumatic, moist oral mucous membranes and oropharynx normal Eyes PERRL and EOMs intact bilaterally Neck no lymphadenopathy and supple Lymph Lymphatic: no lymphadenopathy noted and no lymphedema noted Resp normal respiratory effort, normal air movement and clear to auscultation bilaterally Cardio regular rate, regular rhythm, S1 normal heart sound, S2 normal heart sound and no murmurs GI normal to inspection, nondistended, normoactive bowel sounds, soft to palpation, non-tender and non-distended Extremity normal capillary refill, no clubbing, cyanosis or edema and no calf tenderness General Extremity: no tenderness to palpation of joints or extremities Skin General Skin Exam: no breakdown Neuro CN's II-XII intact bilaterally, no focal motor deficits and no sensory deficits noted Motor Exam: strength 5/5 throughout and general weakness Psych thought process normal, cooperative and affect normal Appearance: appropriate Assessment & Plan Assessment/Plan (1) Acute UTI: (2) Diarrhea: (3) Gross hematuria: PLAN: Plan #Acute gastroenteritis * Resolving. He has not had any more diarrhea since he came in. * C. difficile and enteric pathogens pending. CT of the abdomen and pelvis showed no evidence of colitis. * #UTI * Said he had burning with urination and difficulty with urination. Urinalysis showed evidence of UTI. CT of the abdomen and pelvis showed evidence of cystitis and prostatomegaly. * Currently on IV ceftriaxone. Urology consulted on account of hematuria. * #Hematuria: * Resolving. Urology consulted. Currently on Flomax. * per urology, he can go home on oral antibiotics and flomax. #Paroxysmal A-fib: * Status post ablation. * Coumadin and aspirin on hold. * INR was supratherapeutic * INR was 4 on admission and is now 3.9 #Type 2 diabetes mellitus: * Lactic acid was elevated so metformin and glimepiride were held. * Currently on insulin sliding scale. Accuchecks ACHS. * #Hypertension: antihypertensives on hold due to hypotension on admission. IV hydralazine prn #History of HFrEF: * has known EF of 15%. S/p ICD insertion. * Currently on metoprolol and Lasix as well as Entresto and spironolactone. * There was were however held because his blood pressure was running low. * Will resume. * DVT prophylaxis; SCDs. Code status: DNRCCA no intubation. Charges/Coding Visit Charges Inpatient E&M: 13109 Subs Hosp L2
[2023-09-29 15:09] VITALS: BP 127/80; PULSE 71; RESP 18; TEMP 36.7; O2SAT 94
[2023-09-29] MEDS: Acetaminophen 500 MG Tablet 1000 MG PO (16:38)
[2023-09-29] MEDS: Tamsulosin HCl 0.4 MG Capsule PO (17:27)
[2023-09-29] MEDS: Atorvastatin Calcium 40 MG Tablet PO (21:24)
[2023-09-29 21:25] VITALS: BP 118/76; PULSE 80; RESP 14; TEMP 36.6; O2SAT 96
[2023-09-30 03:45] VITALS: BP 100/73; PULSE 72; RESP 14; TEMP 36.6; O2SAT 99
[2023-09-30 06:17] LABS: Absolute Lymphocyte Count 2.68 X10^3/uL (0.83-4.51); Absolute Neutrophil Count 3.4 X10^3/uL (2.0-7.7); Basophil# 0.06 X10^3/uL; Basophil% 0.8 % (0-1); Eosinophil# 0.36 X10^3/uL; Eosinophils% 5.1 % (0-5); Hematocrit 38.7 % (40-54); Hemoglobin 12.7 g/dL (13.0-16.5); Lymphocyte # 2.68 X10^3/ul (0.83-4.51); Lymphocyte % 37.6 % (19-41); Mean Corp Hgb Conc 32.8 g/dL (32-36); Mean Corpuscular Hgb 30.5 pg (27.0-32.0); Mean Corpuscular Volume 92.8 fL (80-94); Mean Platelet Vol. 9.5 fl (6.2-12.0); Monocyte# 0.54 X10^3/uL; Monocyte% 7.6 % (0-10); NRBC Flagged by Analyzer 0 % (0-5); Neutrophil # 3.41 X10^3/uL (2.7-7.7); Neutrophil % 47.9 % (47-70); Platelet Count 289 K/mm3 (150-450); RBC Distribution Width CV 14.3 % (11.6-14.6); RBC Distribution Width SD 48.4 fl (35.1-43.9); Red Blood Count 4.17 M/mm3 (4.6-6.2); White Blood Count 7.1 K/mm3 (4.4-11.0)
[2023-09-30 06:24] LABS: International Normalized Ratio 2.7; Prothrombin Time (Protime)PT. 28.4 SECONDS (11.7-14.9)
[2023-09-30 06:39] LABS: Anion Gap 6 (5-15); BUN 11 mg/dL (7-18); BUN/Creat Ratio 10.8 RATIO (10-20); Calcium,Total 8.7 mg/dL (8.5-10.1); Chloride 107 mmol/L (98-107); Creatinine, Serum 1.02 mg/dL (0.70-1.30); EST Glomerular Filtration Rate 75 mL/min (>60); Est Glom Filt Rate - Afr Amer 91 mL/min (>60); Estimated Creatinine Clearance 70.43 ml/min; Glucose 130 mg/dL (74-106); Potassium 3.8 mmol/L (3.5-5.1); Sodium Level 137 mmol/L (136-145)
[2023-09-30 08:10] VITALS: BP 116/78; PULSE 77; RESP 14; TEMP 36.6; O2SAT 94
[2023-09-30] MEDS: Acetaminophen 500 MG Tablet 1000 MG PO (08:18)
[2023-09-30 08:21] VITALS: BP 116/78; PULSE 77
[2023-09-30] MEDS: Pantoprazole Sodium 40 MG Tablet PO (08:21)
[2023-09-30] MEDS: Metoprolol(XL)Succ 50 MG Tablet PO (08:21)
--- NOTE | 2023-09-30 08:56 | CASEMGMT ---
Social Work SW met with pt to discuss advance directives.? Pt confirms he has completed a living will and health care POA naming his Britany Wade. Pt notified that documents are not on file at [facility] and SW requested they be brought in for scanning into the EMR.? BERNARDO Yanez
[2023-09-30] MEDS: Ceftriaxone 1 GM/50 ML BAG IV (09:38)
[2023-09-30] MEDS: 0.9% Saline Lock 10 ML Syringe IV (09:38)
--- NOTE | 2023-09-30 13:03 | PCM.DC.SUM ---
Providers Date of Admission: 09/28/23 Date of Discharge: 09/30/23 Primary Care Physician: Dr. Luis Hay MD Consultations 09/28/23 18:49 Consult: Urology Routine Consulting Provider: Tony Campos Reason for Consult: Hematuria, EMERGENT Consult: No MD Notified: Yes Date Notified: 09/28/23 Time Notified: 18:32 Method of Notification: Verbal Reason For Visit: INFECTION/BLEEDING, AFIB Diagnosis Discharge Diagnosis (1) Acute UTI: Status: Acute Code(s): N39.0 - Urinary tract infection, site not specified (2) Diarrhea: Status: Acute Code(s): R19.7 - Diarrhea, unspecified (3) Gross hematuria: Status: Acute Code(s): R31.0 - Gross hematuria Plan #Acute gastroenteritis Resolving. He has not had any more diarrhea since he came in. C. difficile and enteric pathogens pending. CT of the abdomen and pelvis showed no evidence of colitis. #UTI Said he had burning with urination and difficulty with urination. Urinalysis showed evidence of UTI. CT of the abdomen and pelvis showed evidence of cystitis and prostatomegaly. Currently on IV ceftriaxone. Urology consulted on account of hematuria. #Hematuria: Resolving. Urology consulted. Currently on Flomax. per urology, he can go home on oral antibiotics and flomax. #Paroxysmal A-fib: Status post ablation. Coumadin and aspirin on hold. INR was supratherapeutic INR was 4 on admission and is now 3.9 #Type 2 diabetes mellitus: Lactic acid was elevated so metformin and glimepiride were held. Currently on insulin sliding scale. Accuchecks ACHS. #Hypertension: antihypertensives on hold due to hypotension on admission. IV hydralazine prn #History of HFrEF: has known EF of 15%. S/p ICD insertion. Currently on metoprolol and Lasix as well as Entresto and spironolactone. There was were however held because his blood pressure was running low. Will resume. DVT prophylaxis; SCDs. Code status: DNRCCA no intubation. Medications at Discharge Home Medications acetaminophen 500 mg tablet 1,000 mg PO PRN PRN Pain 08/22/17 lactobacillus combination no.8 3 billion cell capsule (Adult Probiotic) 3,000 mmu cells PO DAILY supplement 09/02/19 blood sugar diagnostic (FreeStyle Lite Strips) #100 ea 05/06/21 blood-glucose meter (FreeStyle Lite Meter kit) #1 ea 05/06/21 lancets 28 gauge (FreeStyle Lancets) #200 ea 05/06/21 magnesium 200 mg tablet 200 mg PO .1xaweek supplement 04/24/22 furosemide 40 mg tablet 20 mg (1/2 x 40 mg) PO DAILY diuretic #90 tabs 08/07/22 blood glucose control, low (True Metrix Level 1 solution) #1 ea 08/11/22 lancing device (TRUEdraw Lancing Device) #1 ea 08/11/22 lancets 33 gauge (TRUEplus Lancets) #300 ea 10/27/22 potassium chloride 10 mEq capsule,extended release See Rx Instructions .Route .COMPLEX supplement #360 caps 11/10/22 blood sugar diagnostic (True Metrix Glucose Test Strip) #300 ea 11/17/22 alcohol swabs (DropSafe Alcohol Prep Pads) See Rx Instructions .Route .COMPLEX #200 swabs 11/27/22 spironolactone 25 mg tablet 25 mg PO BID blood pressure #180 tabs 11/27/22 cyclobenzaprine 10 mg tablet 10 mg PO Q12H PRN Muscle Spasm #180 tabs 01/05/23 sacubitril 49 mg-valsartan 51 mg tablet (Entresto) 1 tab PO BID heart #180 tabs 01/14/23 trazodone 50 mg tablet 50 mg PO QHS sleep #90 tabs 01/22/23 famotidine 20 mg tablet 20 mg PO DAILY reflux #90 tabs 02/10/23 glimepiride 4 mg tablet 4 mg PO BID diabetes 3 months #180 tabs 05/22/23 metoprolol succinate 50 mg tablet,extended release 24 hr 50 mg PO DAILY blood pressure #90 tabs 05/27/23 pantoprazole 40 mg tablet,delayed release 40 mg PO BID reflux #180 tabs 05/27/23 metformin 1,000 mg tablet 1,000 mg PO BID diabetes #180 tabs 06/03/23 Handicap Placard #1 ea 07/20/23 hydrocortisone 2.5 % topical cream with perineal applicator 1 applic NJ QD-BID PRN hemorrhoids #30 grams 07/20/23 warfarin 7.5 mg tablet See Rx Instructions .Route .COMPLEX blood thinner 07/20/23 atorvastatin 40 mg tablet 40 mg PO QHS cholesterol #90 tabs 08/03/23 cefdinir 300 mg capsule 300 mg PO BID #10 caps 09/30/23 tamsulosin 0.4 mg capsule (Flomax) 0.4 mg PO DAILY #30 caps 09/30/23 Hospital Course Operations None Procedures None Summary of Care Provided Minutes Spent on Discharge: 55 Hospital Course: Patient is a 78-year-old male with a past medical history as outlined was admitted through the ED on 09/28/2023 with a complaint of vomiting, diarrhea and abdominal pain as well as urinary frequency and burning and dysuria and occasional hematuria. He said he had had some dribbling of red urine and some pinkish urine also. He had never seen a urologist but did admit to a feeling of incomplete emptying of bladder. He also had chills and fever in addition to his above-mentioned symptoms. Patient was on Coumadin and his INR was supratherapeutic in the ED. In the ED blood pressure was running low with a systolic being in the 90s. This however resolved with hydration of IV fluid. Urinalysis showed evidence of UTI. He was admitted and managed for UTI and hematuria likely due to UTI. He was placed on IV ceftriaxone. Urine cultures grew E. coli sensitive to ceftriaxone. Urology was consulted and reviewed patient and thought his hematuria was likely due to the UTI and recommended that patient be discharged on Flomax and to follow-up with urology on outpatient basis. CT of the abdomen and pelvis done showed findings suspicious for cystitis as well as mild prostatomegaly and diverticulosis. Patient symptoms improved and the hematuria resolved. His INR also trended downwards and normalized. Patient remained stable and was discharged home on 09/10/2023. He was discharged on p.o. cefdinir for 5-day course. Since hematuria was likely due to his UTI per urology, patient's Coumadin was resumed. This is because he was on Coumadin for A-fib but he had relatively high risk of getting a stroke whilst off the Coumadin. He was counseled strongly to come into the ED or call the PCP and stop taking the Coumadin if he noticed any hematuria or bleeding from any other orifice. He is follow-up with his primary care doctor and urology within 1 to 2 weeks. Patient seen and examined prior to discharge. He had no complaints and had an uneventful night. He was eager to be discharged. Review of systems otherwise negative. Labs and vitals reviewed. Home medication reviewed and reconciled. Physical Exam Const alert, oriented x3, no apparent distress and well nourished General Appearance: cooperative, comfortable, well kempt and well developed HEENT normocephalic, head/scalp atraumatic, hearing grossly normal bilaterally, moist oral mucous membranes and oropharynx normal Mouth: oral and palatal mucosa normal Eyes PERRL and EOMs intact bilaterally Neck no lymphadenopathy and supple Lymph Lymphatic: no lymphadenopathy noted and no lymphedema noted Resp normal respiratory effort, normal air movement, no retractions, no use of accessory muscles and clear to auscultation bilaterally Cardio regular rate, regular rhythm, S1 normal heart sound, S2 normal heart sound and no murmurs GI normal to inspection, nondistended, normoactive bowel sounds, soft to palpation, non-tender and non-distended Extremity normal to inspection, full ROM, normal capillary refill, no clubbing, cyanosis or edema and no calf tenderness General Extremity: no tenderness to palpation of joints or extremities Skin no rashes or lesions noted General Skin Exam: no breakdown Neuro oriented x3, CN's II-XII intact bilaterally, moves all extremities, no focal motor deficits and no sensory deficits noted Motor Exam: strength 5/5 throughout and general weakness Psych thought process normal, cooperative and affect normal Appearance: appropriate Weight / BMI Weight Weight: 211 lb 10.3 oz Body Mass Index (BMI) 31.2 ABG / Lab / Microbiology Data 09/30/23 05:38 09/30/23 05:38 Laboratory: Laboratory Results - last 24 hr 09/30/23 05:38: WBC 7.1, RBC 4.17 L, Hgb 12.7 L, Hct 38.7 L, MCV 92.8, MCH 30.5, MCHC 32.8, RDW Std Deviation 48.4 H, RDW Coeff of Vane 14.3, Plt Count 289, MPV 9.5, Immature Gran % (Auto) 1.000 H, Neut % (Auto) 47.9, Lymph % (Auto) 37.6, [place] % (Auto) 7.6, Eos % (Auto) 5.1 H, Baso % (Auto) 0.8, Absolute Neuts (auto) 3.4, Absolute Lymphs (auto) 2.68, Nucleated RBC % 0, PT 28.4 H, INR 2.7, Sodium 137, Potassium 3.8, Chloride 107, Carbon Dioxide 24.0, Anion Gap 6, BUN 11, Creatinine 1.02, Estim Creat Clear Calc 70.43, Est GFR (MDRD) Af Amer 91, Est GFR (MDRD) Non-Af 75, BUN/Creatinine Ratio 10.8, Glucose 130 H, Calcium 8.7 Microbiology: Microbiology 09/28/23 14:25 Urine, Clean Catch Urine Culture - Final Presumptive E. coli 09/29/23 09:48 Stool C. difficile GDH Antigen & Toxins - Final 09/29/23 09:48 Stool Clostridioides difficile (PCR) - Final 09/29/23 09:48 Stool Enteric Bacteriology - Final D/C Instructions Discharge Diet: Low fat / Low cholesterol Discharge Activity: Return to Normal Activity Weight Bearing Status: Weight bearing as tolerated Call your doctor if you observe: Fever of 101 or Higher, Shortness of breath, Dizziness, Swelling in the ankles, Chest pain and - (hematuria) Meaningful Use Info Meaningful Use Meaningful Use Diagnoses (Choose all that apply): None applicable Ischemic Stroke Statin Dosing Therapy Reference: STATIN DOSE THERAPY REFERENCE: * Patients > 75 years receive moderate or high dose statin therapy. * Patients 75 years or YOUNGER should receive HIGH intensity statin dose unless contraindicated. You will be required to document reason for non-treatment if statin daily dose does not meet guidelines. HIGH DOSE STATIN THERAPY DAILY Atorvastatin > than or = to 40 mg Rosuvastatin > than or = to 20 mg Amlodipine + Atorvastatin > than or = to 2.5/40 mg Ezetimibe + Simvastatin 10/80 mg Simvastatin 80mg Discharge Plan Admission Admit Date/Time: 09/28/23 18:21 Primary Reason for Your Visit: UTI Attending Provider: Terri Osborn Primary Care Provider: Luis Hay Consulting Providers: Tony Campos; William Starr Instructions Patient Instructions: What is Hematuria?, Hematuria: Possible Causes, ED Hematuria, ED Urinary Tract Infections in Men Discharge Orders/Prescriptions Prescriptions: New cefdinir 300 mg capsule 300 mg PO BID Qty: 10 0RF tamsulosin [Flomax] 0.4 mg capsule 0.4 mg PO DAILY Qty: 30 2RF Continued Adult Probiotic 3 billion cell capsule 3,000 mmu cells PO DAILY Rx Instructions: administer with a meal magnesium 200 mg tablet 200 mg PO .1xaweek warfarin 7.5 mg tablet See Rx Instructions .ROUTE .COMPLEX Protocol: Dose Management Condition: Thursday Dose/Route: 7.5 mg Instruction: 1 x 7.5 mg tablet Condition: Thursday Dose/Route: 7.5 mg Instruction: 1 x 7.5 mg tablet Condition: Thursday Dose/Route: 3.75 mg Instruction: 0.5 x 7.5 mg tablets Condition: Thursday Dose/Route: 7.5 mg Instruction: 1 x 7.5 mg tablet Condition: Dose/Route: 7.5 mg Instruction: 1 x 7.5 mg tablet Condition: Thursday Dose/Route: 3.75 mg Instruction: 0.5 x 7.5 mg tablets Condition: Thursday Dose/Route: 7.5 mg Instruction: 1 x 7.5 mg tablet Protocol Text: Adjustment Start Date: Thursday09/25/23 INR Value: 4.0 INR Date: 09/25/23 Recheck Date: 10/02/23 Dose Instruction: TAKE 1 TABLET EVERY DAY Rx Instructions: TAKE 1 TABLET five times per week 1/2 tablet twice weekly hydrocortisone 2.5 % cream with perineal applicator 1 applic NJ QD-BID PRN (Reason: hemorrhoids) Qty: 30 1RF (DME) Handicap Placard See Rx Instructions .ROUTE .MEDSUPPLY Qty: 1 0RF Rx Instructions: As directed, length of time 3 years acetaminophen 500 MG tablet 1,000 mg PO PRN PRN (Reason: Pain) (DME) FreeStyle Lite Strips Strip See Rx Instructions .MEDSUPPLY Qty: 100 3RF Rx Instructions: check blood glucose 2 x daily for type 2 DM (DME) lancets [FreeStyle Lancets] 28 gauge misc See Rx Instructions .MEDSUPPLY Qty: 200 3RF Rx Instructions: check blood glucose 2x daily for type 2 DM (DME) blood-glucose meter [FreeStyle Lite Meter] Kit See Rx Instructions .MEDSUPPLY Qty: 1 0RF Rx Instructions: As directed, check blood glucose 2x daily for type 2 DM furosemide 40 mg tablet 20 mg PO DAILY Qty: 90 3RF (DME) lancing device [TRUEdraw Lancing Device] Misc See Rx Instructions .ROUTE .COMPLEX Qty: 1 3RF Dose Instruction: USE DIRECTED Rx Instructions: USE DIRECTED (DME) True Metrix Level 1 Solution See Rx Instructions .ROUTE .COMPLEX Qty: 1 3RF Dose Instruction: USE DIRECTED WITH GLUCOSE METER Rx Instructions: USE DIRECTED WITH GLUCOSE METER (DME) lancets [TRUEplus Lancets] 33 gauge misc See Rx Instructions .ROUTE .COMPLEX Qty: 300 3RF Dose Instruction: TEST BLOOD GLUCOSE THREE TIMES DAILY Rx Instructions: TEST BLOOD GLUCOSE THREE TIMES DAILY potassium chloride 10 mEq capsule, extended release See Rx Instructions .ROUTE .COMPLEX Qty: 360 3RF Dose Instruction: TAKE 2 CAPSULES TWICE DAILY Rx Instructions: TAKE 2 CAPSULES TWICE DAILY (DME) True Metrix Glucose Test Strip Strip See Rx Instructions .Route Qty: 300 3RF Rx Instructions: use three times daily to monitor blood glucose for type 2 DM spironolactone 25 mg tablet 25 mg PO BID Qty: 180 3RF alcohol swabs [DropSafe Alcohol Prep Pads] Pads, Medicated See Rx Instructions .ROUTE .COMPLEX Qty: 200 3RF Dose Instruction: USE DIRECTED Rx Instructions: USE DIRECTED cyclobenzaprine 10 mg tablet 10 mg PO Q12H PRN (Reason: Muscle Spasm) Qty: 180 3RF Entresto 49-51 mg tablet 1 tab PO BID Qty: 180 4RF trazodone 50 mg tablet 50 mg PO QHS Qty: 90 3RF famotidine 20 mg tablet 20 mg PO DAILY Qty: 90 3RF glimepiride 4 mg tablet 4 mg PO BID 90 Days Qty: 180 3RF metoprolol succinate 50 mg tablet extended release 24 hr 50 mg PO DAILY Qty: 90 3RF pantoprazole 40 mg tablet,delayed release (DR/EC) 40 mg PO BID Qty: 180 3RF metformin 1,000 mg tablet 1,000 mg PO BID Qty: 180 3RF atorvastatin 40 mg tablet 40 mg PO QHS Qty: 90 3RF Discontinued aspirin 81 MG tablet,chewable 81 mg PO QHS Referrals / Follow Up: Luis Hay MD [Primary Care Provider] - 10/07/23 10:30 am (Keep your current appointment on the with PA. There is a secondary appointment on October [address] Hay. ) Tony Campos MD [Med Staff - Active Staff] - Within 1 Week ([place] called the office, the office is currently closed. Voicemail was left, if you do not receive a call back by ThursdayOctober 01 please call the office. ) Disposition Disposition (needs filled in before D/C Order can be placed): Home, Self Care Charges/Coding Visit Charges Inpatient E&M: 37139 Disch Hosp >30min
[2023-09-30 13:20] VITALS: BP 123/76; PULSE 73; RESP 15; TEMP 36.7; O2SAT 97
--- NOTE | 2023-09-30 14:31 | CASEMGMT ---
Patient has order for discharge. RN CM in to discuss needs at discharge. Patient denies needs or help at discharge. Patient had no further questions or concerns.
--- NOTE | 2023-09-30 14:35 | PHA.DC.MC.R ---
Pharmacy [facility] has performed discharge medication reconciliation and counseling for this patient. 1. CEFDINIR 300MG PO BID X 5 DAYS The patient's discharge medication list was reviewed for discrepancies and discrepancies were resolved. The patient was counseled on the following discharge medications and changes in medications for homegoing were reviewed. The Reason for Use, instructions for use, and potential side effects were reviewed for all new medications. The patient's questions regarding all of their medications were answered. The patient was able to verbally demonstrate an understanding of their discharge medications. Medications at Discharge Home Medications acetaminophen 500 mg tablet 1,000 mg PO PRN PRN Pain 08/22/17 lactobacillus combination no.8 3 billion cell capsule (Adult Probiotic) 3,000 mmu cells PO DAILY supplement 09/02/19 blood sugar diagnostic (FreeStyle Lite Strips) #100 ea 05/06/21 blood-glucose meter (FreeStyle Lite Meter kit) #1 ea 05/06/21 lancets 28 gauge (FreeStyle Lancets) #200 ea 05/06/21 magnesium 200 mg tablet 200 mg PO .1xaweek supplement 04/24/22 furosemide 40 mg tablet 20 mg (1/2 x 40 mg) PO DAILY diuretic #90 tabs 08/07/22 blood glucose control, low (True Metrix Level 1 solution) #1 ea 08/11/22 lancing device (TRUEdraw Lancing Device) #1 ea 08/11/22 lancets 33 gauge (TRUEplus Lancets) #300 ea 10/27/22 potassium chloride 10 mEq capsule,extended release See Rx Instructions .Route .COMPLEX supplement #360 caps 11/10/22 blood sugar diagnostic (True Metrix Glucose Test Strip) #300 ea 11/17/22 alcohol swabs (DropSafe Alcohol Prep Pads) See Rx Instructions .Route .COMPLEX #200 swabs 11/27/22 spironolactone 25 mg tablet 25 mg PO BID blood pressure #180 tabs 11/27/22 cyclobenzaprine 10 mg tablet 10 mg PO Q12H PRN Muscle Spasm #180 tabs 01/05/23 sacubitril 49 mg-valsartan 51 mg tablet (Entresto) 1 tab PO BID heart #180 tabs 01/14/23 trazodone 50 mg tablet 50 mg PO QHS sleep #90 tabs 01/22/23 famotidine 20 mg tablet 20 mg PO DAILY reflux #90 tabs 02/10/23 glimepiride 4 mg tablet 4 mg PO BID diabetes 3 months #180 tabs 05/22/23 metoprolol succinate 50 mg tablet,extended release 24 hr 50 mg PO DAILY blood pressure #90 tabs 05/27/23 pantoprazole 40 mg tablet,delayed release 40 mg PO BID reflux #180 tabs 05/27/23 metformin 1,000 mg tablet 1,000 mg PO BID diabetes #180 tabs 06/03/23 Handicap Placard #1 ea 07/20/23 hydrocortisone 2.5 % topical cream with perineal applicator 1 applic TN QD-BID PRN hemorrhoids #30 grams 07/20/23 warfarin 7.5 mg tablet See Rx Instructions .Route .COMPLEX blood thinner 07/20/23 atorvastatin 40 mg tablet 40 mg PO QHS cholesterol #90 tabs 08/03/23 cefdinir 300 mg capsule 300 mg PO BID #10 caps 09/30/23 tamsulosin 0.4 mg capsule (Flomax) 0.4 mg PO DAILY #30 caps 09/30/23
== END 2023-09-30 15:19 | disposition home or self-care (01) | DRG 690 ==
LOC: ED 17:51 → PCU 18:06
PROVIDERS: Family Medicine; Admitting Provider Internal Medicine; Emergency Provider Emergency Medicine; PCP Internal Medicine; Visit Provider Student in an Organized Health Care Education/Training Program
DX: N30.90 Cystitis, unspecified without hematuria (principal); E87.20 Acidosis, unspecified; I13.0 Hypertensive heart and chronic kidney disease with heart failure and stage 1 through stage 4 chronic kidney disease, or unspecified chronic kidney disease; I50.22 Chronic systolic (congestive) heart failure; E11.22 Type 2 diabetes mellitus with diabetic chronic kidney disease; E78.2 Mixed hyperlipidemia; B96.20 Unspecified Escherichia coli [E. coli] as the cause of diseases classified elsewhere; N18.30 Chronic kidney disease, stage 3 unspecified; I34.0 Nonrheumatic mitral (valve) insufficiency; I48.0 Paroxysmal atrial fibrillation; I25.5 Ischemic cardiomyopathy; I25.10 Atherosclerotic heart disease of native coronary artery without angina pectoris; K52.9 Noninfective gastroenteritis and colitis, unspecified; R39.14 Feeling of incomplete bladder emptying; R31.0 Gross hematuria; R79.1 Abnormal coagulation profile; Z66 Do not resuscitate; N40.1 Benign prostatic hyperplasia with lower urinary tract symptoms; N13.8 Other obstructive and reflux uropathy; Z79.01 Long term (current) use of anticoagulants; Z79.82 Long term (current) use of aspirin; Z79.84 Long term (current) use of oral hypoglycemic drugs; Z87.891 Personal history of nicotine dependence; Z95.810 Presence of automatic (implantable) cardiac defibrillator; Z95.5 Presence of coronary angioplasty implant and graft; Z90.49 Acquired absence of other specified parts of digestive tract
CPT/HCPCS: 36415; 74177; 80048; 80053; 81001; 82550; 82962; 83605; 85025; 85610; 85730; 87040; 87086; 87088; 87186; 87493; 87506; 93005; 97162; 97165; 99284; J7030; Q9967; A4216

== ENCOUNTER → 2024-01-27 | Outpatient (CLI) | payer MEDICARE, SELFPAY ==
[2024-01-27 17:38] LABS: Absolute Lymphocyte Count 2.93 X10^3/uL (0.83-4.51); Absolute Neutrophil Count 6.1 X10^3/uL (2.0-7.7); Basophil# 0.06 X10^3/uL; Basophil% 0.6 % (0-1); Eosinophil# 0.32 X10^3/uL; Eosinophils% 3.1 % (0-5); Hematocrit 45.6 % (40-54); Hemoglobin 14.9 g/dL (13.0-16.5); Lymphocyte # 2.93 X10^3/ul (0.83-4.51); Lymphocyte % 28.1 % (19-41); Mean Corp Hgb Conc 32.7 g/dL (32-36); Mean Corpuscular Hgb 30.7 pg (27.0-32.0); Mean Platelet Vol. 10.9 fl (6.2-12.0); Monocyte# 0.98 X10^3/uL; Monocyte% 9.4 % (0-10); NRBC Flagged by Analyzer 0 % (0-5); Neutrophil # 6.11 X10^3/uL (2.7-7.7); Neutrophil % 58.5 % (47-70); Platelet Count 214 K/mm3 (150-450); RBC Distribution Width CV 13.7 % (11.6-14.6); RBC Distribution Width SD 47.3 fl (35.1-43.9); Red Blood Count 4.85 M/mm3 (4.6-6.2); White Blood Count 10.4 K/mm3 (4.4-11.0)
[2024-01-27 17:49] LABS: ALB/GLOB Ratio 0.9 RATIO (0.9-2.4); AST(SGOT) 42 U/L (15-37); Alanine Aminotransfer ALT/SGPT 55 U/L (16-61); Albumin, Serum 3.7 g/dL (3.2-5.0); Alkaline Phosphatase 69 U/L (45-117); Anion Gap 5 (5-15); BUN 14 mg/dL (7-18); BUN/Creat Ratio 9.7 RATIO (10-20); Calcium,Total 9.7 mg/dL (8.5-10.1); Chloride 101 mmol/L (98-107); Creatinine, Serum 1.45 mg/dL (0.70-1.30); EST Glomerular Filtration Rate 50 mL/min (>60); Est Glom Filt Rate - Afr Amer 61 mL/min (>60); Globulin 4.2 g/dL (2.2-4.2); Glucose 179 mg/dL (74-106); PSA,Total - Annual Screen 0.63 ng/mL (0.00-4.00); Potassium 4.6 mmol/L (3.5-5.1); Protein, Total 7.9 g/dL (6.4-8.2); Sodium Level 134 mmol/L (136-145)
== END | disposition home or self-care (01) ==
LOC: BIMLAB 15:27
PROVIDERS: PCP Internal Medicine; Referring Provider Internal Medicine; Visit Provider Internal Medicine
DX: N40.0 Benign prostatic hyperplasia without lower urinary tract symptoms (principal); E11.69 Type 2 diabetes mellitus with other specified complication; E78.2 Mixed hyperlipidemia
CPT/HCPCS: 36415; 80053; 84153; 85025; G0103

== ENCOUNTER → 2024-02-01 | Outpatient (CLI) | payer MEDICARE, SELFPAY | END | disposition home or self-care (01) | PROVIDERS: PCP Internal Medicine; Referring Provider Internal Medicine; Visit Provider Internal Medicine | DX: E11.9 Type 2 diabetes mellitus without complications (principal) | CPT/HCPCS: 82043; 82570 ==

== ENCOUNTER → 2024-02-17 | Outpatient (CLI) | payer MEDICARE, SELFPAY ==
[2024-02-17 13:45] LABS: Microalbumin,Random Urine 6.7 mg/L (NO RANGE EST.); Microalbumin:Creatinine Ratio 13.5 mg/g CRE (<30 mg/g CRE)
== END | disposition home or self-care (01) ==
LOC: LABSPEC 11:16
PROVIDERS: PCP Internal Medicine; Referring Provider Internal Medicine; Visit Provider Internal Medicine
DX: E11.69 Type 2 diabetes mellitus with other specified complication (principal)
CPT/HCPCS: 36415; 82043; 82570

== ENCOUNTER → 2024-03-31 | Outpatient (CLI) | payer MEDICARE, SELFPAY | END | disposition home or self-care (01) | LOC: LAB 14:23 | PROVIDERS: PCP Internal Medicine; Referring Provider Urology; Visit Provider Urology | DX: Z12.5 Encounter for screening for malignant neoplasm of prostate (principal) | CPT/HCPCS: 36415; 84153; G0103 ==

== ENCOUNTER → 2024-04-28 | Outpatient (CLI) | payer MEDICARE, SELFPAY ==
[2024-04-28 17:39] LABS: Anion Gap 14 (5-15); BUN 13 mg/dL (4-19); BUN/Creat Ratio 10.3 RATIO (10-20); Calcium,Total 9.6 mg/dL (7.6-11.0); Carbon Dioxide 24.4 mmol/L (21.0-32.0); Chloride 101 mmol/L (98-108); Creatinine, Serum 1.28 mg/dL (0.70-1.20); EST Glomerular Filtration Rate 58 (>60); Glucose 160 mg/dL (70-99); Potassium 4.9 mmol/L (3.3-5.1); Sodium Level 139 mmol/L (133-145)
== END | disposition home or self-care (01) ==
LOC: BIMLAB 14:53
PROVIDERS: PCP Internal Medicine; Referring Provider Internal Medicine; Visit Provider Internal Medicine
DX: I10 Essential (primary) hypertension (principal)
CPT/HCPCS: 36415; 80048

== ENCOUNTER 2024-06-04 01:34 | Emergency (ER) | payer MEDICARE, SELFPAY ==
[2024-06-04 01:35] VITALS: BP 129/86; PULSE 82; RESP 18; TEMP 36.5; O2SAT 94; BMI 34.1
[2024-06-04 01:55] VITALS: O2SAT 93
--- NOTE | 2024-06-04 01:56 | ED.VIS.CHEST ---
HPI History of Present Illness Chief Complaint: Chest Pain Informant: patient and EMS Narrative Narrative: 79-year-old male states he woke up 1 or 2 hours ago with racing heartbeat that he measured at around 135, and chest pressure and some trouble breathing. He laid there for about an hour and it persisted so he called EMS, now it is completely gone and he feels better. He had no syncope. Symptoms woke him up. No recent illness. He has a history of heart stents, significant cardiomyopathy with a 15% ejection fraction in the past, episodes of ventricular tachycardia in the past, and an AICD. It did not fire tonight. His device is a 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 Presence of stent in coronary artery (~02/21/13) Mixed hyperlipidemia CVA (cerebral vascular accident) Chronic systolic (congestive) heart failure Ischemic cardiomyopathy Atherosclerotic heart disease of [place] coronary artery without angina pectoris Essential hypertension Home Medications ?Medication ?Instructions ?Recorded ?Last Taken ?Type acetaminophen 500 mg tablet 1,000 mg PO PRN PRN Pain 08/22/17 09/28/23 History lactobacillus combination no.8 3 3,000 mmu cells PO DAILY supplement 09/02/19 09/28/23 History billion cell capsule (Adult Probiotic) blood sugar diagnostic (FreeStyle #100 ea 05/06/21 Unknown Rx Lite Strips) blood-glucose meter (FreeStyle #1 ea 05/06/21 Unknown Rx Lite Meter kit) blood glucose control, low (True #1 ea 08/11/22 Unknown Rx Metrix Level 1 solution) lancing device (TRUEdraw Lancing #1 ea 08/11/22 Unknown Rx Device) alcohol swabs (DropSafe Alcohol See Rx Instructions .Route 11/27/22 Unknown Rx Prep Pads) .COMPLEX #200 swabs glimepiride 4 mg tablet 4 mg PO BID diabetes 3 months #180 05/22/23 09/28/23 Rx tabs pantoprazole 40 mg tablet,delayed 40 mg PO BID reflux #180 tabs 05/27/23 09/28/23 Rx release Handicap Placard #1 ea 07/20/23 Unknown Rx cyclobenzaprine 10 mg tablet 10 mg PO Q12H PRN Muscle Spasm 10/05/23 Unknown Rx #180 tabs lancets 28 gauge (FreeStyle #200 ea 10/05/23 Unknown Rx Lancets) lancets 33 gauge (TRUEplus Lancets) #300 ea 10/05/23 Unknown Rx potassium chloride 10 mEq 20 meq (2 x 10 mEq) PO BID #360 10/21/23 Unknown Rx capsule,extended release caps trazodone 50 mg tablet 50 mg PO QHS sleep #90 tabs 10/21/23 Unknown Rx blood sugar diagnostic (True #300 ea 11/18/23 Unknown Rx Metrix Glucose Test Strip) famotidine 20 mg tablet 20 mg PO DAILY reflux #90 tabs 11/30/23 Unknown Rx spironolactone 25 mg tablet 25 mg PO BID blood pressure #180 11/30/23 Unknown Rx tabs aspirin 81 mg tablet,delayed 81 mg PO QDAY 12/10/23 Unknown History release finasteride 5 mg tablet 5 mg PO QDAY 12/10/23 Unknown History magnesium 200 mg tablet 200 mg PO QWEEK supplement 12/10/23 Unknown History warfarin 7.5 mg tablet See Rx Instructions .Route 01/27/24 Unknown History .COMPLEX blood thinner metoprolol succinate 50 mg 50 mg PO DAILY #90 TABLETS 03/02/24 Unknown Rx tablet,extended release 24 hr sacubitril 49 mg-valsartan 51 mg 1 tab PO BID heart #180 tabs 04/04/24 Unknown Rx tablet (Entresto) atorvastatin 40 mg tablet 40 mg PO QHS cholesterol #90 tabs 05/16/24 Unknown Rx metformin 1,000 mg tablet 1,000 mg PO BID diabetes #180 tabs 05/18/24 Unknown Rx furosemide 20 mg tablet 10 mg PO DAILY 06/04/24 Unknown History hydrocortisone 2.5 % topical cream 1 applic NV BID PRN PRN hemorrhoids 06/04/24 Unknown History with perineal applicator Allergy/AdvReac Type Severity Reaction Status Date / Time gemfibrozil Allergy Intermediate upset Verified 06/04/24 01:39 stomach; constipation amiodarone AdvReac 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 esomeprazole magnesium (From AdvReac Diarrhea Verified 06/04/24 01:39 Nexium) Family History Mother CVA (cerebral vascular accident) Grandfather Heart disease Father Cancer testicular Sister Cancer Breast Surgical History History of cholecystectomy Presence of coronary angioplasty implant and graft (~02/21/13) History of cardiac radiofrequency ablation Presence of implantable cardioverter-defibrillator (ICD) (~06/21/13) Social History household members: spouse housing: house number of children: 3 current occupational status: retired current occupational exposures/hazards: No Smoking Status: Former smoker quit date: 02/09/15 pack-years: 122 Tobacco: How many years used: 61 Electronic Cigarette Use: not used second hand exposure: Yes alcohol intake: never substance use type: does not use ROS ROS ED Constitutional Constitutional ED: Denies chills or fever(s) Eyes Eyes: Denies change in vision or diplopia ENT ENT ED: Denies rhinorrhea or sore throat Cardiovascular Cardiovascular: Reports as per HPI, chest pain, palpitations and racing heartbeat; Denies lightheadedness or syncope Respiratory/Chest Respiratory/Chest: Reports dyspnea; Denies cough Gastrointestinal Gastrointestinal: Denies abdominal pain, diarrhea, nausea or vomiting Genitourinary Genitourinary ED: Denies dysuria or hematuria Musculoskeletal Musculoskeletal: Denies back pain or neck pain Integumentary Denies abscess or rash Neurologic Neurologic: Denies headache(s), paresthesias or weakness Psychiatric Psychiatric: Denies anxiety or suicidal thoughts EXAM Physical Exam Const Vital Signs: 06/04/24 01:35 06/04/24 01:43 06/04/24 01:55 Temperature 97.7 F L Temperature Source Oral Pulse Rate 82 Respiratory Rate 18 Respiratory Effort Short of Breath Blood Pressure 129/86 H Blood Pressure Mean 100 Pulse Ox 94 93 Oxygen Delivery Method Room Air Room Air 06/04/24 02:35 06/04/24 02:57 06/04/24 04:00 Temperature Temperature Source Pulse Rate 69 68 71 Respiratory Rate 20 H 19 H 14 Respiratory Effort Blood Pressure 118/100 H 117/84 H Blood Pressure Mean 106 95 Pulse Ox 92 92 95 Oxygen Delivery Method Room Air Room Air Room Air 06/04/24 04:22 Temperature 98.4 F Temperature Source Pulse Rate 63 Respiratory Rate 17 Respiratory Effort Blood Pressure 117/84 H Blood Pressure Mean 95 Pulse Ox 92 Oxygen Delivery Method Positive well nourished and well developed General Appearance ED: well developed and NAD HEENT Reports moist mucous membranes normocephalic and atraumatic Eyes PERRL and EOMs intact bilaterally Neck full ROM and supple Resp normal respiratory effort and clear to auscultation bilaterally Effort and Inspection: Negative for respiratory distress Cardio regular rate, regular rhythm and no murmurs Rate: Negative for tachycardic Peripheral Pulses: pulses 2+ throughout GI non-tender and non-distended Auscultation: normoactive bowel sounds Palpation: soft Back/Spine no CVA tenderness General Back: other FROM Extremity normal to inspection General Extremety ED: Negative for edema, pulses abnormal or tenderness General Extremity: Negative for edema or pulses abnormal Neuro oriented x3, CN's II-XII intact bilaterally and no sensory deficits noted Sensorium / Orientation: awake and alert Motor Exam: strength 5/5 throughout Skin no rashes or lesions noted and no wounds MDM MDM MDM Narrative Medical decision making narrative: Patient's vital signs are normal, he is asymptomatic, his EKG shows a left anterior fascicular block, couple PVCs some occasional pacing, no acute injury pattern, and is otherwise unchanged compared with his old. Chest x-ray 1 view on my interpretation shows no acute abnormality radiology in agreement. Labs are noted and unremarkable except for a subtherapeutic INR 1.4, he is on warfarin. We monitored him until we obtained a second troponin, and we also queried his [facility] AICD. I reviewed this report, and I spoke with the equipment engineering technician for [facility] who reviewed it as well. The patient had 5 episodes that were labeled as SVT by the device, he had no episodes of ventricular fibrillation or V. tach. These 5 episodes all occurred this morning and match the timeframe when the patient had the symptoms as I reviewed them with him. 1 episode lasted for 15 minutes, the rest of the episodes were less than 1 minute. The ventricular response is irregular, therefore the equipment engineering technician states this is all consistent with runs of A-fib, and it appeared that he had been having nonsustained episodes of A-fib for the past week or so. He had no recurrent episodes of A-fib or symptoms while in the emergency department. His second troponin returns negative, the delta is 2 and they are both within normal limits. Given that he is already anticoagulated albeit a little subtherapeutic, is on metoprolol, and has an appointment with his paper slitter after the weekend on Thursday, I am okay with him being discharged and following up as scheduled. He is comfortable with that plan. Lab Data Attestation: I reviewed the patient's lab results. Labs: Laboratory Results - last 24 hr 06/04/24 06/04/24 01:40 03:40 WBC 9.9 RBC 4.69 Hgb 14.8 Hct 43.1 MCV 91.9 MCH 31.6 MCHC 34.3 RDW Std Deviation 44.1 H RDW Coeff of Vane 13.2 Plt Count 186 MPV 10.5 Immature Gran % (Auto) 0.300 Neut % (Auto) 46.9 L Lymph % (Auto) 40.9 [place] % (Auto) 8.9 Eos % (Auto) 2.4 Baso % (Auto) 0.6 Absolute Neuts (auto) 4.6 Absolute Lymphs (auto) 4.04 Nucleated RBC % 0 PT 17.3 H INR 1.4 Sodium 138 Potassium 4.1 Chloride 102 Carbon Dioxide 21.5 Anion Gap 15 BUN 15 Creatinine 1.37 H Estim Creat Clear Calc 53.89 Est GFR (MDRD) Non-Af 53 L BUN/Creatinine Ratio 11.1 Glucose 176 H Calcium 9.1 Troponin T High Sens 12 Troponin T Hi Sens 2 Hr 14 Radiography Diagnostic Testing: Clinical Impression(s) from Imaging Studies Chest X-Ray 06/04/24 02:08 IMPRESSION: No acute cardiopulmonary process. Reading Location: [facility] Rhythm Strip Rhythm Strip: Sinus Rhythm Rate: 80 Ectopy: PVC(s) EKG Initial EKG: Attestation: I personally reviewed and interpreted this EKG as follows: Interpretation: Sinus Rhythm (With occasional atrial pacing and occasional PVCs), No Acute Injury Pattern and LAFB Prior EKG tracings: available for review Prior: Unchanged Management Discussion w/another healthcare provider: Medicaid Business Analyst ([facility]/joann equipment engineering technician) Discharge Plan Triage Chief Complaint: Chest Pain ED Provider: Jeb Cuellar Dx/Rx/DC Orders Clinical Impression: Chest pain, unspecified, Paroxysmal atrial fibrillation, Subtherapeutic international normalized ratio (INR) Instructions: ED AFIB Prescriptions: No Action Adult Probiotic 3 billion cell capsule 3,000 mmu cells PO DAILY Rx Instructions: administer with a meal magnesium 200 mg tablet 200 mg PO QWEEK (DME) Handicap Placard See Rx Instructions .ROUTE .MEDSUPPLY Qty: 1 0RF Rx Instructions: As directed, length of time 3 years aspirin 81 mg tablet,delayed release (DR/EC) 81 mg PO QDAY finasteride 5 mg tablet 5 mg PO QDAY warfarin 7.5 mg tablet See Rx Instructions .ROUTE .COMPLEX Protocol: Dose Management Condition: Thursday Dose/Route: 3.75 mg Instruction: 0.5 x 7.5 mg tablets Condition: Thursday Dose/Route: 7.5 mg Instruction: 1 x 7.5 mg tablet Condition: Thursday Dose/Route: 7.5 mg Instruction: 1 x 7.5 mg tablet Condition: Thursday Dose/Route: 7.5 mg Instruction: 1 x 7.5 mg tablet Condition: Dose/Route: 7.5 mg Instruction: 1 x 7.5 mg tablet Condition: Thursday Dose/Route: 7.5 mg Instruction: 1 x 7.5 mg tablet Condition: Thursday Dose/Route: 3.75 mg Instruction: 0.5 x 7.5 mg tablets Protocol Text: Adjustment Start Date: Thursday05/27/24 INR Value: 2.3 INR Date: 05/27/24 Recheck Date: 06/10/24 Dose Instruction: TAKE 1 TABLET EVERY DAY Rx Instructions: TAKE 1 TABLET five times per week 1/2 tablet twice weekly acetaminophen 500 MG tablet 1,000 mg PO PRN PRN (Reason: Pain) hydrocortisone 2.5 % cream with perineal applicator 1 applic NV BID PRN PRN (Reason: hemorrhoids) furosemide 20 mg tablet 10 mg PO DAILY (DME) FreeStyle Lite Strips Strip See Rx Instructions .MEDSUPPLY Qty: 100 3RF Rx Instructions: check blood glucose 2 x daily for type 2 DM (DME) blood-glucose meter [FreeStyle Lite Meter] Kit See Rx Instructions .MEDSUPPLY Qty: 1 0RF Rx Instructions: As directed, check blood glucose 2x daily for type 2 DM (DME) lancing device [TRUEdraw Lancing Device] Mis See Rx Instructions .ROUTE .COMPLEX Qty: 1 3RF Dose Instruction: USE DIRECTED Rx Instructions: USE DIRECTED (DME) True Metrix Level 1 Solution See Rx Instructions .ROUTE .COMPLEX Qty: 1 3RF Dose Instruction: USE DIRECTED WITH GLUCOSE METER Rx Instructions: USE DIRECTED WITH GLUCOSE METER alcohol swabs [DropSafe Alcohol Prep Pads] Pads, Medicated See Rx Instructions .ROUTE .COMPLEX Qty: 200 3RF Dose Instruction: USE DIRECTED Rx Instructions: USE DIRECTED glimepiride 4 mg tablet 4 mg PO BID 90 Days Qty: 180 3RF pantoprazole 40 mg tablet,delayed release (DR/EC) 40 mg PO BID Qty: 180 3RF (DME) lancets [FreeStyle Lancets] 28 gauge misc See Rx Instructions .MEDSUPPLY Qty: 200 3RF Rx Instructions: check blood glucose 2x daily for type 2 DM (DME) lancets [TRUEplus Lancets] 33 gauge misc See Rx Instructions .ROUTE .COMPLEX Qty: 300 3RF Dose Instruction: TEST BLOOD GLUCOSE THREE TIMES DAILY Rx Instructions: TEST BLOOD GLUCOSE THREE TIMES DAILY cyclobenzaprine 10 mg tablet 10 mg PO Q12H PRN (Reason: Muscle Spasm) Qty: 180 3RF potassium chloride 10 mEq capsule, extended release 20 meq PO BID Qty: 360 3RF trazodone 50 mg tablet 50 mg PO QHS Qty: 90 3RF (DME) True Metrix Glucose Test Strip Strip See Rx Instructions .Route Qty: 300 3RF Rx Instructions: use three times daily to monitor blood glucose for type 2 DM spironolactone 25 mg tablet 25 mg PO BID Qty: 180 3RF famotidine 20 mg tablet 20 mg PO DAILY Qty: 90 3RF metoprolol succinate 50 mg tablet extended release 24 hr 50 mg PO DAILY Qty: 90 3RF Entresto 49-51 mg tablet 1 tab PO BID Qty: 180 4RF atorvastatin 40 mg tablet 40 mg PO QHS Qty: 90 3RF metformin 1,000 mg tablet 1,000 mg PO BID Qty: 180 3RF Primary Care Provider: Luis Hay Referrals: Barry Odom MD [Med Staff - Active Staff] - Keep Christiano appointment Activity Restrictions/Additional Instructions: Your INR today is 1.4, a little low. Take an extra half tablet of warfarin at your next dose; if your next dose is half of a pill, then just take a single pill. Print Language: Frisian Disposition Disposition: Home, Self Care
[2024-06-04 02:01] LABS: Absolute Lymphocyte Count 4.04 X10^3/uL (0.83-4.51); Absolute Neutrophil Count 4.6 X10^3/uL (2.0-7.7); Basophil# 0.06 X10^3/uL; Basophil% 0.6 % (0-1); Eosinophil# 0.24 X10^3/uL; Eosinophils% 2.4 % (0-5); Hematocrit 43.1 % (40-54); Hemoglobin 14.8 g/dL (13.0-16.5); Lymphocyte # 4.04 X10^3/ul (0.83-4.51); Lymphocyte % 40.9 % (19-41); Mean Corp Hgb Conc 34.3 g/dL (32-36); Mean Corpuscular Hgb 31.6 pg (27.0-32.0); Mean Corpuscular Volume 91.9 fL (80-94); Mean Platelet Vol. 10.5 fl (6.2-12.0); Monocyte# 0.88 X10^3/uL; Monocyte% 8.9 % (0-10); NRBC Flagged by Analyzer 0 % (0-5); Neutrophil # 4.62 X10^3/uL (2.7-7.7); Neutrophil % 46.9 % (47-70); Platelet Count 186 K/mm3 (150-450); RBC Distribution Width CV 13.2 % (11.6-14.6); RBC Distribution Width SD 44.1 fl (35.1-43.9); Red Blood Count 4.69 M/mm3 (4.6-6.2); White Blood Count 9.9 K/mm3 (4.4-11.0)
--- NOTE | 2024-06-04 02:08 | RAD_ITS ---
PROCEDURE: CHEST 1 VIEW (PORTABLE) 06/04/2024 REASON FOR EXAM: CHEST PAIN TECHNIQUE: Frontal view of the chest. COMPARISON: None. FINDINGS: Cardiomegaly is present. Pulmonary vasculature is within normal limits. No consolidation, pleural effusion, or pneumothorax is present. Left-sided pacemaker is identified. RAD/Chest 1 View (Portable) IMPRESSION: No acute cardiopulmonary process. Reading Location: [facility]
[2024-06-04 02:13] LABS: International Normalized Ratio 1.4; Prothrombin Time (Protime)PT. 17.3 SECONDS (11.7-14.9)
[2024-06-04 02:33] LABS: Anion Gap 15 (5-15); BUN 15 mg/dL (4-19); BUN/Creat Ratio 11.1 RATIO (10-20); Calcium,Total 9.1 mg/dL (7.6-11.0); Carbon Dioxide 21.5 mmol/L (21.0-32.0); Chloride 102 mmol/L (98-108); Creatinine, Serum 1.37 mg/dL (0.70-1.20); EST Glomerular Filtration Rate 53 (>60); Estimated Creatinine Clearance 53.89 ml/min (50-250); Glucose 176 mg/dL (70-99); Potassium 4.1 mmol/L (3.3-5.1); Sodium Level 138 mmol/L (133-145); Troponin T High Sensitivity 12 ng/L (<=22)
[2024-06-04 02:35] VITALS: BP 118/100; PULSE 69; RESP 20; O2SAT 92
[2024-06-04 02:57] VITALS: PULSE 68; RESP 19; O2SAT 92
[2024-06-04 04:00] VITALS: BP 117/84; PULSE 71; RESP 14; O2SAT 95
[2024-06-04 04:16] LABS: Troponin T High Sens 2 HR 14 ng/L (<=22)
[2024-06-04 04:22] VITALS: BP 117/84; PULSE 63; RESP 17; TEMP 36.9; O2SAT 92
== END 2024-06-04 04:39 | disposition home or self-care (01) ==
PROVIDERS: Emergency Provider Emergency Medicine; PCP Internal Medicine; Visit Provider Emergency Medicine
DX: R07.9 Chest pain, unspecified (principal); I11.0 Hypertensive heart disease with heart failure; I50.22 Chronic systolic (congestive) heart failure; I48.0 Paroxysmal atrial fibrillation; E11.22 Type 2 diabetes mellitus with diabetic chronic kidney disease; Z87.891 Personal history of nicotine dependence; E78.2 Mixed hyperlipidemia; Z95.810 Presence of automatic (implantable) cardiac defibrillator; I25.10 Atherosclerotic heart disease of native coronary artery without angina pectoris; Z79.899 Other long term (current) drug therapy; I47.10 Supraventricular tachycardia, unspecified
CPT/HCPCS: 71045; 80048; 84484; 85025; 85610; 93005; 99285; A4216

== ENCOUNTER → 2024-07-21 | Outpatient (CLI) | payer MEDICARE, SELFPAY ==
--- NOTE | 2024-07-21 07:28 | RAD_ITS ---
PROCEDURE: ESOPHAGUS DUAL CONTRAST 07/21/2024 REASON FOR EXAM: DYSPHAGIA TECHNIQUE: The patient ingested barium. Multiple images of the esophagus were obtained. 54 seconds of fluoroscopy. 14.5 mGy. COMPARISON: None FINDINGS: The esophagus is unremarkable. There is no evidence of esophageal mass. No evidence of obstruction. No evidence of gastroesophageal reflux. The patient ingested a 12 mm tablet the barium. The tablet is trapped at the gastroesophageal junction. Correlation with endoscopy recommended. RAD/Esophagus Dual Contrast IMPRESSION: The ingested a 12 mm tablet the barium is trapped at the gastroesophageal junct ion. Endoscopic correlation recommended. Reading Location: [facility]
== END | disposition home or self-care (01) ==
LOC: RAD 07:28
PROVIDERS: PCP Internal Medicine; Referring Provider Otolaryngology; Visit Provider Otolaryngology
DX: R13.10 Dysphagia, unspecified (principal)
CPT/HCPCS: 74221

== ENCOUNTER 2024-07-22 19:27 | Emergency (ER) | payer MEDICARE, SELFPAY ==
[2024-07-22 19:28] VITALS: BP 127/79; PULSE 88; RESP 20; TEMP 36.8; O2SAT 94; BMI 34.0
[2024-07-22 19:32] VITALS: BP 127/79; PULSE 86; RESP 20; TEMP 36.8; O2SAT 96
--- NOTE | 2024-07-22 19:45 | EDS_ITS ---
HPI History of Present Illness Chief Complaint: Chest Pain Informant: patient Onset/Context/Timing Onset: Today (Approximately 30 minutes prior to arrival) Activity at onset: sudden Timing: Continuous Quality: Positive for Pressure Location: Substernal Worsened By: Nothing Relieved By: Nothing Associated Symptoms: Positive for Lightheadedness and Palpitations; Negative for Nausea, Vomiting, Diaphoresis, Dyspnea, Cough, Fever or Acid Reflux Narrative Narrative: Patient presents with chest pain and palpitations that began tonight approximately 30 minutes prior to arrival. Patient states he was sitting in his chair when he felt his heart was racing. Patient states he looked at his watch and his watch noted that he was in atrial fibrillation. Patient states his heart rate was over 100. Patient states he was going anywhere between 100 and 150. Patient admits to some pressure in his chest. Patient states he feels like there is something sitting on his chest. Patient denies any nausea or vomiting. Patient denies any shortness of breath cough. Patient admits to some lightheadedness. Patient states nothing makes his symptoms better and nothing makes them worse. [facility] Medical History Odynophagia Viral syndrome Hearing difficulty Hemorrhoids Hypersomnolence IVON (obstructive sleep apnea) Heart failure with reduced ejection fraction Flu vaccine need CKD (chronic kidney disease), stage III Type 2 diabetes mellitus Hyperglycemia Chronic diarrhea BPH (benign prostatic hyperplasia) Weight loss, non-intentional Atrial fibrillation FPC (current) use of anticoagulants Presence of stent in coronary artery (~02/21/13) Mixed hyperlipidemia CVA (cerebral vascular accident) Chronic systolic (congestive) heart failure Ischemic cardiomyopathy Atherosclerotic heart disease of [place] coronary artery without angina pectoris Essential hypertension Home Medications ?Medication ?Instructions ?Recorded ?Last Taken ?Type acetaminophen 500 mg tablet 1,000 mg PO PRN PRN Pain 0 08/22/17 09/28/23 History lactobacillus combination no.8 3 3,000 mmu cells PO DA JACINTO supplement 09/02/19 09/28/23 History billion cell capsule (Adult Probiotic) blood sugar diagnostic (FreeStyle #100 ea 05/06/21 Unk nown Rx Lite Strips) blood-glucose meter (FreeStyle #1 ea 05/06/21 Unknown Rx Lite Meter kit) blood glucose control, low (True #1 ea 08/11/22 Unknow n Rx Metrix Level 1 solution) lancing device (TRUEdraw Lancing #1 ea 08/11/22 Unknow n Rx Device) alcohol swabs (DropSafe Alcohol See Rx Instructions .R oute 11/27/22 Unknown Rx Prep Pads) .COMPLEX #200 swabs glimepiride 4 mg tablet 4 mg PO BID diabetes 3 month s #180 05/22/23 09/28/23 Rx tabs Handicap Placard #1 ea 07/20/23 Unknown Rx cyclobenzaprine 10 mg tablet 10 mg PO Q12H PRN Muscle Spasm 10/05/23 Unknown Rx #180 tabs lancets 28 gauge (FreeStyle #200 ea 10/05/23 Unknown R x Lancets) lancets 33 gauge (TRUEplus Lancets) #300 ea 10/05/23 U nknown Rx potassium chloride 10 mEq 20 meq (2 x 10 mEq) PO BID # 360 10/21/23 Unknown Rx capsule,extended release caps trazodone 50 mg tablet 50 mg PO QHS sleep #90 tabs 10/21/23 Unknown Rx blood sugar diagnostic (True #300 ea 11/18/23 Unknown Rx Metrix Glucose Test Strip) famotidine 20 mg tablet 20 mg PO DAILY reflux #90 ta bs 11/30/23 Unknown Rx aspirin 81 mg tablet,delayed 81 mg PO QDAY 12/10/23 Un known History release finasteride 5 mg tablet 5 mg PO QDAY 12/10/23 Unknow n History magnesium 200 mg tablet 200 mg PO QWEEK supplement 1 Unknown History warfarin 7.5 mg tablet See Rx Instructions .Route 1 03/29/23 Unknown History .COMPLEX blood thinner sacubitril 49 mg-valsartan 51 mg 1 tab PO BID heart #1 80 tabs 04/04/24 Unknown Rx tablet (Entresto) atorvastatin 40 mg tablet 40 mg PO QHS cholesterol #90 tabs 05/16/24 Unknown Rx metformin 1,000 mg tablet 1,000 mg PO BID diabetes #18 0 tabs 05/18/24 Unknown Rx furosemide 20 mg tablet 10 mg PO DAILY 06/04/24 Unkn own History hydrocortisone 2.5 % topical cream 1 applic OR BID PRN PRN hemorrhoids 06/04/24 Unknown History with perineal applicator spironolactone 25 mg tablet 25 mg PO QDAY blood pressu re #90 04/28/25 Unknown Rx tabs nitroglycerin 0.4 mg sublingual 0.4 mg sublingual Q5-1 5M PRN chest 06/08/24 Unknown Rx tablet pain #100 tabs metoprolol succinate 50 mg 50 mg PO DAILY 90 days #90 TABLETS 07/06/24 Unknown Rx tablet,extended release 24 hr pantoprazole 40 mg tablet,delayed 40 mg PO BID reflux #180 tabs 07/18/24 Unknown Rx release tamsulosin 0.4 mg capsule 0.4 mg PO DAILY 07/22/24 Unk nown History Allergy/AdvReac Type Severity Reaction Status Date / Time gemfibrozil Allergy Intermediate upset Verified 07/22/24 19:28 stomach; constipation amiodarone AdvReac 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 esomeprazole magnesium (From AdvReac Diarrhea Verified 07/22/24 19:28 Nexium) Family History Mother CVA (cerebral vascular accident) Grandfather Heart disease Father Cancer testicular Sister Cancer Breast Surgical History History of cholecystectomy Presence of coronary angioplasty implant and graft (~02/21/13) History of cardiac radiofrequency ablation Presence of implantable cardioverter-defibrillator (ICD) (~06/21/13) Social History household members: spouse housing: house number of children: 3 current occupational status: retired current occupational exposures/hazards: No Smoking Status: Former smoker quit date: 02/09/15 pack-years: 122 Tobacco: How many years used: 61 Electronic Cigarette Use: not used second hand exposure: Yes alcohol intake: never substance use type: does not use ROS ROS ED Constitutional Constitutional ED: Denies chills or fever(s) Eyes Eyes: Denies blurry vision or change in vision ENT ENT ED: Denies rhinorrhea or sore throat Cardiovascular Cardiovascular: Reports as per HPI, chest pain, palpitations and racing heartbeat Respiratory/Chest Respiratory/Chest: Denies cough or dyspnea Gastrointestinal Gastrointestinal: Denies nausea or vomiting Genitourinary Genitourinary ED: Denies dysuria or hematuria Musculoskeletal Musculoskeletal: Reports back pain; Denies neck pain Integumentary Denies abscess or rash Neurologic Neurologic: Denies headache(s) or weakness Allergic/Immunologic Allergic/Immunologic ED: Denies mouth swelling or urticaria EXAM Physical Exam Const Vital Signs: 07/22/24 19:28 07/22/24 19:28 07/22/24 19:32 Temperature 98.2 F 98.2 F Temperature Source Oral Oral Pulse Rate 88 86 Respiratory Rate 20 H 20 H Respiratory Effort Normal Blood Pressure 127/79 H 127/79 H Blood Pressure Mean 95 95 Pulse Ox 94 96 Oxygen Delivery Method Room Air Room Air 07/22/24 19:47 07/22/24 20:27 07/22/24 21:00 Temperature Temperature Source Pulse Rate 80 79 Respiratory Rate 18 20 H Respiratory Effort Blood Pressure 112/72 103/68 Blood Pressure Mean 85 79 Pulse Ox 94 95 Oxygen Delivery Method Room Air Room Air Room Air 07/22/24 22:00 Temperature Temperature Source Pulse Rate 62 Respiratory Rate 20 H Respiratory Effort Blood Pressure 103/58 L Blood Pressure Mean 73 Pulse Ox 93 Oxygen Delivery Method Room Air Positive well nourished and well developed Constitutional Narrative: BMI is 34.1 General Appearance ED: well developed and NAD HEENT Reports moist mucous membranes normocephalic and atraumatic Neck supple and no JVD Chest Wall palpation of chest normal Resp normal respiratory effort and clear to auscultation bilaterally Cardio regular rate and regular rhythm GI soft to palpation, non-tender and non-distended Neuro oriented x3, CN's II-XII intact bilaterally and no sensory deficits noted Sensorium / Orientation: awake and alert Motor Exam: strength 5/5 throughout Psych mental status grossly normal Heart Score History: Slightly/Non-Suspicious ECG: Nonspecific Repolarization Age: >/= 65 years Risk Factors: >/= 3 Risk Factors or History of CAD Troponin: </= Normal Limit Score: 5 MDM MDM MDM Narrative Medical decision making narrative: Differential diagnosis includes cardiac dysrhythmia, cardiac ischemia, pneumonia, bronchitis, electrolyte abnormality, coagulopathy, hypomagnesemia, and anxiety. EKG will be obtained to assess for cardiac dysrhythmia and cardiac ischemia. Chest x-ray will be obtained to assess for pneumonia and bronchitis. CBC will be obtained to assess for leukocytosis and anemia. Basic metabolic profile will be obtained to assess for electrolyte abnormality and renal function. High-sensitivity troponin will be obtained to assess for cardiac ischemia. 2-hour repeat high-sensitivity troponin will be obtained to assess for ongoing cardiac ischemia. Serum magnesium level will be obtained to assess for hypomagnesemia and hypomagnesemia. Lab Data Attestation: I reviewed the patient's lab results. Lab results narrative: CBC was reviewed and was within normal limits. Basic metabolic profile was reviewed. Creatinine was slightly elevated at 1.28. The remainder is within normal limits. Serum magnesium level was reviewed and was slightly low at 1.4. Initial high-sensitivity troponin was reviewed and was normal at 13. PT with INR and PTT were reviewed. INR is 2.0 and pro time is 23.0. PTT was normal at 32.8. 2-hour repeat high-sensitivity troponin was reviewed and was normal at 14. Labs: Laboratory Results - last 24 hr 07/22/24 07/22/24 19:35 21:30 WBC 8.3 RBC 4.49 L Hgb 14.7 Hct 42.9 MCV 95.5 H MCH 32.7 H MCHC 34.3 RDW Std Deviation 46.5 H RDW Coeff of Vane 13.3 Plt Count 182 MPV 10.6 Immature Gran % (Auto) 0.200 Neut % (Auto) 50.4 Lymph % (Auto) 37.1 [place] % (Auto) 9.0 Eos % (Auto) 2.7 Baso % (Auto) 0.6 Absolute Neuts (auto) 4.2 Absolute Lymphs (auto) 3.06 Nucleated RBC % 0 PT 23.0 H INR 2.0 APTT 32.8 Sodium 141 Potassium 4.3 Chloride 104 Carbon Dioxide 23.0 Anion Gap 14 BUN 12 Creatinine 1.28 H Estim Creat Clear Calc 57.60 Est GFR (MDRD) Non-Af 58 L BUN/Creatinine Ratio 9.5 L Glucose 139 H Calcium 9.0 Magnesium 1.4 L Troponin T High Sens 13 D Troponin T Hi Sens 2 Hr 14 Radiography Chest X-Ray - ED: 1 View, Read by ED Physician, Read by Radiologist, No Acute Disease and Cardiomegaly Diagnostic Testing: Clinical Impression(s) from Imaging Studies Chest X-Ray 07/22/24 20:00 IMPRESSION: Stable mild cardiomegaly. No acute findings. Reading Location: [facility] Portable 1 view chest x-ray was obtained. On my independent interpretation, lung coppola are clear. There is mild cardiomegaly. Bony thorax is normal. There is no acute process noted. Radiologist also interpreted the x-ray and agrees. EKG Initial EKG: Attestation: I personally reviewed and interpreted this EKG as follows: Interpretation: Sinus Rhythm (With occasional PVC with a rate of 88) and Non-Specific ST Changes Comments: EKG was obtained. On my independent interpretation, it showed a normal sinus rhythm with a rate of 88 with occasional PVC. OR interval, QRS interval, and QTc intervals were all normal. There is left axis deviation -52. There are nonspecific ST-T wave changes. Prior EKG tracings: available for review Prior: Unchanged (06/04/2024) Treatment and Re-Evaluation :: Patient was given aspirin. Patient was initially ordered IV Cardizem bolus however this was not given because patient was in a normal sinus rhythm on his EKG. Patient was advised of his findings. Patient remained in a normal sinus rhythm here in the emergency department. The patient was instructed to follow- up with his primary care physician in 3 to 5 days. Patient was instructed to return if worse in any way. Patient understood and was agreeable with the plan. All questions were answered. Discharge Plan Triage Chief Complaint: Chest Pain ED Provider: Thee Pettit Dx/Rx/DC Orders Clinical Impression: Paroxysmal atrial fibrillation, Type 2 diabetes mellitus Instructions: ED Chest Pain, Uncertain Cause Prescriptions: No Action Adult Probiotic 3 billion cell capsule 3,000 mmu cells PO DAILY Rx Instructions: administer with a meal magnesium 200 mg tablet 200 mg PO QWEEK (DME) Handicap Placard See Rx Instructions .ROUTE .MEDSUPPLY Qty: 1 0RF Rx Instructions: As directed, length of time 3 years aspirin 81 mg tablet,delayed release (DR/EC) 81 mg PO QDAY finasteride 5 mg tablet 5 mg PO QDAY warfarin 7.5 mg tablet See Rx Instructions .ROUTE .COMPLEX Protocol: Dose Management Condition: Thursday Dose/Route: 3.75 mg Instruction: 0.5 x 7.5 mg tablets Condition: Thursday Dose/Route: 7.5 mg Instruction: 1 x 7.5 mg tablet Condition: Thursday Dose/Route: 7.5 mg Instruction: 1 x 7.5 mg tablet Condition: Thursday Dose/Route: 7.5 mg Instruction: 1 x 7.5 mg tablet Condition: Dose/Route: 7.5 mg Instruction: 1 x 7.5 mg tablet Condition: Thursday Dose/Route: 7.5 mg Instruction: 1 x 7.5 mg tablet Condition: Thursday Dose/Route: 3.75 mg Instruction: 0.5 x 7.5 mg tablets Protocol Text: Adjustment Start Date: Thursday07/08/24 INR Value: 2.2 INR Date: 07/08/24 Recheck Date: 07/22/24 Dose Instruction: TAKE 1 TABLET EVERY DAY Rx Instructions: TAKE 1 TABLET five times per week 1/2 tablet twice weekly spironolactone 25 mg tablet 25 mg PO QDAY Qty: 90 3RF metoprolol succinate 50 mg tablet extended release 24 hr 50 mg PO DAILY 90 Days Qty: 90 3RF acetaminophen 500 MG tablet 1,000 mg PO PRN PRN (Reason: Pain) tamsulosin 0.4 mg capsule 0.4 mg PO DAILY hydrocortisone 2.5 % cream with perineal applicator 1 applic OR BID PRN PRN (Reason: hemorrhoids) furosemide 20 mg tablet 10 mg PO DAILY (DME) FreeStyle Lite Strips Strip See Rx Instructions .MEDSUPPLY Qty: 100 3RF Rx Instructions: check blood glucose 2 x daily for type 2 DM (DME) blood-glucose meter [FreeStyle Lite Meter] Kit See Rx Instructions .MEDSUPPLY Qty: 1 0RF Rx Instructions: As directed, check blood glucose 2x daily for type 2 DM (DME) lancing device [TRUEdraw Lancing Device] Misc See Rx Instructions .ROUTE .COMPLEX Qty: 1 3RF Dose Instruction: USE DIRECTED Rx Instructions: USE DIRECTED (DME) True Metrix Level 1 Solution See Rx Instructions .ROUTE .COMPLEX Qty: 1 3RF Dose Instruction: USE DIRECTED WITH GLUCOSE METER Rx Instructions: USE DIRECTED WITH GLUCOSE METER alcohol swabs [DropSafe Alcohol Prep Pads] Pads, Medicated See Rx Instructions .ROUTE .COMPLEX Qty: 200 3RF Dose Instruction: USE DIRECTED Rx Instructions: USE DIRECTED glimepiride 4 mg tablet 4 mg PO BID 90 Days Qty: 180 3RF (DME) lancets [FreeStyle Lancets] 28 gauge misc See Rx Instructions .MEDSUPPLY Qty: 200 3RF Rx Instructions: check blood glucose 2x daily for type 2 DM (DME) lancets [TRUEplus Lancets] 33 gauge misc See Rx Instructions .ROUTE .COMPLEX Qty: 300 3RF Dose Instruction: TEST BLOOD GLUCOSE THREE TIMES DAILY Rx Instructions: TEST BLOOD GLUCOSE THREE TIMES DAILY cyclobenzaprine 10 mg tablet 10 mg PO Q12H PRN (Reason: Muscle Spasm) Qty: 180 3RF potassium chloride 10 mEq capsule, extended release 20 meq PO BID Qty: 360 3RF trazodone 50 mg tablet 50 mg PO QHS Qty: 90 3RF (DME) True Metrix Glucose Test Strip Strip See Rx Instructions .Route Qty: 300 3RF Rx Instructions: use three times daily to monitor blood glucose for type 2 DM famotidine 20 mg tablet 20 mg PO DAILY Qty: 90 3RF Entresto 49-51 mg tablet 1 tab PO BID Qty: 180 4RF atorvastatin 40 mg tablet 40 mg PO QHS Qty: 90 3RF metformin 1,000 mg tablet 1,000 mg PO BID Qty: 180 3RF nitroglycerin 0.4 mg tablet, sublingual 0.4 mg sublingual Q5-15M PRN (Reason: chest pain) Qty: 100 3RF Rx Instructions: do not exceed 3 doses per episode pantoprazole 40 mg tablet,delayed release (DR/EC) 40 mg PO BID Qty: 180 3RF Primary Care Provider: Luis Hay Referrals: Luis Hay MD [Primary Care Provider] - 3-5 Days Print Language: [place] Disposition Disposition: Home, Self Care
[2024-07-22] MEDS: Aspirin 81 MG TAB.CHEW 324 MG PO (19:53)
[2024-07-22 19:58] LABS: Absolute Lymphocyte Count 3.06 X10^3/uL (0.83-4.51); Absolute Neutrophil Count 4.2 X10^3/uL (2.0-7.7); Basophil# 0.05 X10^3/uL; Basophil% 0.6 % (0-1); Eosinophil# 0.22 X10^3/uL; Eosinophils% 2.7 % (0-5); Hematocrit 42.9 % (40-54); Hemoglobin 14.7 g/dL (13.0-16.5); Lymphocyte # 3.06 X10^3/ul (0.83-4.51); Lymphocyte % 37.1 % (19-41); Mean Corp Hgb Conc 34.3 g/dL (32-36); Mean Corpuscular Hgb 32.7 pg (27.0-32.0); Mean Corpuscular Volume 95.5 fL (80-94); Mean Platelet Vol. 10.6 fl (6.2-12.0); Monocyte# 0.74 X10^3/uL; NRBC Flagged by Analyzer 0 % (0-5); Neutrophil # 4.16 X10^3/uL (2.7-7.7); Neutrophil % 50.4 % (47-70); Platelet Count 182 K/mm3 (150-450); RBC Distribution Width CV 13.3 % (11.6-14.6); RBC Distribution Width SD 46.5 fl (35.1-43.9); Red Blood Count 4.49 M/mm3 (4.6-6.2); White Blood Count 8.3 K/mm3 (4.4-11.0)
--- NOTE | 2024-07-22 20:00 | RAD_ITS ---
PROCEDURE: CHEST 1 VIEW (PORTABLE) 07/22/2024 REASON FOR EXAM: CHEST PAIN TECHNIQUE: Frontal view of the chest. COMPARISON: Chest radiograph 06/04/2024. FINDINGS: Hardware: Stable left chest wall pacemaker device. Heart: Stable mild cardiomegaly. Lungs: No focal consolidation, pleural effusion or pneumothorax. Bones: Degenerative changes are identified within the thoracic spine. Other: Retained contrast material within the upper colon. RAD/Chest 1 View (Portable) IMPRESSION: Stable mild cardiomegaly. No acute findings. Reading Location: [id number]
[2024-07-22 20:15] LABS: Partial Thromboplast Time 32.8 Seconds (24.1-36.2)
--- OUTSIDE RECORDS SUMMARY | 2024-07-22 20:26 | XMS RPT_ITS | CCD ---
Author Organization [facility] Care Team Providers Care Event Marketing Coordinator Name Role Phone RALFTJ CONNER Unavailable Unavailable RALFTJ CEE T Unavailable Unavailable VITEBSKIY, SOWMYA Unavailable Unavailable TALAMPAS, NIDIA Unavailable Unavailable BREANNE GONZALEZ Unavailable Unavailable TALAMPAS, NIDIA Unavailable Unavailable TALAMPAS, NIDIA Unavailable Unavailable VICKIE, KIRK Unavailable Unavailable VICKIE, KIRK Unavailable Unavailable VICKIE, KIRK Unavailable Unavailable JESÚSLUIS MATOS H Unavailable Unavailable TALAMPAS, NIDIA Unavailable Unavailable TALAMPAS, NIDIA Unavailable Unavailable JESÚS LUIS H Unavailable Unavailable TALAMPAS, NIDIA Unavailable Unavailable TALAMPAS, NIDIA Unavailable Unavailable VITEBSKIY, SOWMYA Unavailable Unavailable TALAMPAS, NIDIA Unavailable Unavailable JESÚS, LUIS H Unavailable Unavailable TALAMPAS, NIDIA Unavailable Unavailable TALAMPAS, NIDIA Unavailable Unavailable VICKIE, KIRK Unavailable Unavailable VICKIE, KIRK Unavailable Unavailable TALAMPAS, NIDIA Unavailable Unavailable VICKIE, KIRK Unavailable Unavailable VICKIE, KIRK Unavailable Unavailable TALAMPAS, NIDIA Unavailable Unavailable VICKIE, KIRK Unavailable Unavailable TALAMPAS, NIDIA Unavailable Unavailable TALAMPAS, NIDIA Unavailable Unavailable VITEBSKIY, SOWMYA Unavailable Unavailable TALAMPAS, NIDIA Unavailable Unavailable AHMED, SHAMEEM M Unavailable Unavailable AHMED, SHAMEEM M Unavailable Unavailable TALAMPAS, NIDAI Unavailable Unavailable VITEBSKIY, SOWMYA Unavailable Unavailable TALAMPAS, NIDIA Unavailable Unavailable VITEBSKIY, SOWMYA Unavailable Unavailable TALAMPAS, NIDIA Unavailable Unavailable VITEBSKIY, SOWMYA Unavailable Unavailable TALAMPAS, NIDIA Unavailable Unavailable Talampas Nidia TRAVIS Primary Care Provider Kirk Johnston (Hist) Unavailable Jesi TRAVIS, Sowmya العلي Unavailable Mark Ricks MD Unavailable Denis Jorge Unavailable Nathalie ZUÑIGA, Ireland M Unavailable Unavailabl e Matty, Dr. Nidia Mcdowell Primary Care Provider Dr. Nidia Geiger Attending Provider Dr. Denis Jorge Attending Provider Dr. Denis Jorge Referring Provider [phone] Dr. Nidia Geiger Referring Provider Dr. Luis Hay Attending Provider [phone] Dr. Luis Hay Primary Care Provider [phone]) Dr. Nidia Geiger Primary Care Provider Dr. Nidia Geiger Attending Provider Moira Colon Attending Provider Unavailable Dr. Luis Hay Referring Provider [phone] [facility] FERRIS WHEEL OPERATOR, FERRIS WHEEL OPERATOR-Espinoza Dowell Attending Provider Dr. August Wong Attending Provider Dr. Nidia Geiger Primary Care Provider Dr. Nidia Geiger Attending Provider Dr. Denis Jorge Attending Provider Dr. Luis Hay Primary Care Provider [phone]) Dr. Luis Hay Attending Provider [phone] Dr. Nidia Geiger Referring Provider Dr. Denis Jorge Referring Provider [phone] Dr. Luis Hay Primary Care Provider 1(33 0) Dr. Luis Hay Attending Provider [phone])2 Satnam, Dr. Smith Referring Provider [phone])2 Moira Colon Attending Provider Unavailable Dr. Denis Jorge Attending Provider [phone]) Satnam, Dr. Smith Primary Care Provider [phone] 0) Satnam, Dr. Smith Attending Provider [phone] Satnam, Dr. Smith Referring Provider [phone] Marian FERRIS WHEEL OPERATOR, FERRIS WHEEL OPERATORJordy Dowell Attending Provider [phone] Moira Colon Attending Provider Unavailable Satnam, Dr. Smith Primary Care Provider 1(33 0) Satnam, Dr. Smith Attending Provider [phone] Satnam, Dr. Smith Referring Provider [phone])2 Dr. Luis Hay Primary Care Provider 1(33 0) Satnam, Dr. Smith Attending Provider [phone])2 Dr. Denis Jorge Attending Provider 1(330) Dr. Denis Jorge Referring Provider 1(330) Satnam, Dr. Smith Referring Provider [phone])2 Eagle ESTEVES, FERRIS WHEEL OPERATOR-Espinoza Gandhi Attending Provider Dr. Luis Hay Primary Care Provider 1(33 0) Dr. Luis Hay Attending Provider [phone] Dr. Denis Jorge Attending Provider 1(330) Dr. Denis Jorge Referring Provider 1(330) Satnam, Dr. Smith Referring Provider [phone])2 Moira Colon Attending Provider Unavailable Eagle ESTEVES, FERRIS WHEEL OPERATOR-C Oksana Attending Provider Satnam, Dr. Smith Primary Care Provider [phone] 0) Dr. Luis Hay Referring Provider [phone])2 Moira Colon Attending Provider Unavailable Dr. Luis Hay Attending Provider [phone])2 Dr. Denis Jorge Attending Provider [phone] Dr. Denis Jorge Referring Provider [phone] Dr. Luis Hay Primary Care Provider [phone] Dr. Luis Hay Attending Provider [phone])2 Dr. Luis Hay Referring Provider [phone])2 Moira Colon Attending Provider Unavailable Eagle FERRIS WHEEL OPERATOR, FERRIS WHEEL OPERATOR-C Oksana Attending Provider Dr. Denis Jorge Attending Provider [phone]) Dr. Luis Hay Primary Care Provider 1(33 0) Satnam, Dr. Smith Attending Provider [phone])2 Dr. Luis Hay Referring Provider [phone])2 Candice FERRIS WHEEL OPERATOR, FERRIS WHEEL OPERATOR-C Martha Attending Provider [facility] FERRIS WHEEL OPERATOR, FERRIS WHEEL OPERATOR-C Joseph Dowell Attending Provider [phone] Dr. Luis Hay Primary Care Provider 1(33 0) Dr. Barry Odom Attending Provider [phone] Barry Odom Referring Provider [phone] Luis Hay Attending Provider [phone])2 Dr. Luis Hay Referring Provider [phone])2 Matty TRAVIS, Nidia Mcdowell Primary Care Provider Kirk Jhonston Unavailable Jesi TRAVIS, Sowmya العلي Unavailable Mark Ricks MD Unavailable Denis Jorge MD Unavailable [phone] Satnam TRAVIS, Dr. Smith Primary Care Provider Satnam TRAVIS, Dr. Smith Attending Provider 1(33 0) Satnam TRAVIS, Dr. Smith Referring Provider 1(33 0) Lei TRAVIS, Dr. Reddy Attending Provider [phone] Lei TRAVIS, Dr. Reddy Referring Provider 1(330) Andres TRAVIS, Dr. Tony Rosas Attending Provider Andres TRAVIS, Dr. Tony Rosas Referring Provider Satnam TRAVIS, Dr. Smith Primary Care Provider Satnam TRAVIS, Dr. Smith Attending Provider [phone] 0) Satnam TRAVIS, Dr. Smith Referring Provider 1(33 0) Alisa TRAVIS, Dr. uRss Emergency Provider Satnam TRAVIS, Dr. Smith Primary Care Provider Satnam TRAVIS, Dr. Smith Attending Provider [phone] 0) Lei TRAVIS, Dr. Reddy Attending Provider [phone] Lei TRAVIS, Dr. Reddy Referring Provider 1(330) Satnam TRAVIS, Dr. Smith Referring Provider 1(33 0) Alisa TRAVIS, Dr. Russ Attending Provider [facility] Joseph FRAGA Attending Provider Oleghe, Efewongbe Primary Care Unavailable Oleghe, Efewongbe Referring Unavailable Oleghe, Efewongbe Attending Unavailable Oleghe, Efewongbe Primary Care Unavailable Oleghe, Efewongbe Attending Unavailable Oleghe, Efewongbe Attending Unavailable Oleghe, Efewongbe Primary Care Unavailable Oleghe, Efewongbe Primary Care Unavailable Thee Pettit Attending Unavailable Oleghe, Efewongbe Referring Unavailable Oleghe, Efewongbe Primary Care Unavailable Oleghe, Efewongbe Attending Unavailable Oleghe, Efewongbe Primary Care Unavailable Jeb Cuellar Attending Unavailable Terri Osborn Attending Unavailable Oleghe, Efewongbe Primary Care Unavailable Andres, Rohit Consulting Unavailable Matty, William Admitting Unavailable Matty, William Consulting Unavailable Oleghe, Efewongbe Primary Care Unavailable Candice FERRIS WHEEL OPERATOR, Martha Attending Unavailable Candice ESTEVES, Martha Referring Unavailable Oleghe, Efewongbe Primary Care Unavailable Tony Campos Referring Unavailable AndresTony Attending Unavailable Oleghe, Efewongbe Primary Care Unavailable Oleghe, Efewongbe Attending Unavailable Oleghe, Efewongbe Primary Care Unavailable Oleghe, Efewongbe Attending Unavailable Oleghe, Efewongbe Primary Care Unavailable Oleghe, Efewongbe Attending Unavailable Oleghe, Efewongbe Referring Unavailable Oleghe, Efewongbe Primary Care Unavailable Oleghe, Efewongbe Attending Unavailable Oleghe, Efewongbe Primary Care Unavailable Lei, Barry Referring Unavailable Lei, Mitchell Attending Unavailable Oleghe, Efewongbe Primary Care Unavailable Oleghe, Efewongbe Attending Unavailable Oleghe, Efewongbe Referring Unavailable Oleghe, Efewongbe Primary Care Unavailable Oleghe, Efewongbe Attending Unavailable Oleghe, Efewongbe Primary Care Unavailable Oleghe, Efewongbe Attending Unavailable Oleghe, Efewongbe Primary Care Unavailable Oleghe, Efewongbe Attending Unavailable Oleghe, Efewongbe Primary Care Unavailable Oleghe, Efewongbe Attending Unavailable Oleghe, Efewongbe Primary Care Unavailable Todd Villavicencio Attending Unavailable Todd Villavicencio Referring Unavailable Oleghe, Efewongbe Primary Care Unavailable Oleghe, Efewongbe Attending Unavailable Oleghe, Efewongbe Referring Unavailable Oleghe, Efewongbe Primary Care Unavailable Oleghe, Efewongbe Attending Unavailable Oleghe, Efewongbe Primary Care Unavailable Oleghe, Efewongbe Attending Unavailable Oleghe, Efewongbe Primary Care Unavailable Oleghe, Efewongbe Attending Unavailable Oleghe, Efewongbe Attending Unavailable Oleghe, Efewongbe Primary Care Unavailable Oleghe, Efewongbe Attending Unavailable Oleghe, Efewongbe Primary Care Unavailable Oleghe, Efewongbe Primary Care Unavailable Oleghe, Efewongbe Attending Unavailable Oleghe, Efewongbe Attending Unavailable Oleghe, Efewongbe Primary Care Unavailable Oleghe, Efewongbe Primary Care Unavailable Oleghe, Efewongbe Attending Unavailable Oleghe, Efewongbe Primary Care Unavailable Oleghe, Efewongbe Attending Unavailable Oleghe, Efewongbe Primary Care Unavailable Oleghe, Efewongbe Attending Unavailable Oleghe, Efewongbe Attending Unavailable Oleghe, Efewongbe Primary Care Unavailable Oleghe, Efewongbe Primary Care Unavailable Oleghe, Efewongbe Attending Unavailable Oleghe, Efewongbe Primary Care Unavailable Oleghe, Efewongbe Attending Unavailable Oleghe, Efewongbe Primary Care Unavailable Tony Campos Consulting Unavailable Matty, William Admitting Unavailable Matty, William Attending Unavailable Matty, William Consulting Unavailable Koram, Terri Kristina Attending Unavailable Koram, Terri Kristina Consulting Unavailable Oleghe, Efewongbe Primary Care Unavailable Oleghe, Efewongbe Attending Unavailable Oleghe, Efewongbe Primary Care Unavailable Oleghe, Efewongbe Attending Unavailable Oleghe, Efewongbe Primary Care Unavailable Oleghe, Efewongbe Attending Unavailable Oleghe, Efewongbe Primary Care Unavailable Franki Schmidt Attending Unavailable Oleghe, Efewongbe Referring Unavailable Oleghe, Efewongbe Primary Care Unavailable Lei, Mitchell Attending Unavailable Lei, Mitchell Referring Unavailable Oleghe, Efewongbe Primary Care Unavailable Lei, Barry Referring Unavailable Lei, Barry Attending Unavailable Oleghe, Efewongbe Primary Care Unavailable Lei, Mitchell Referring Unavailable Lei, Mitchell Attending Unavailable Oleghe, Efewongbe Primary Care Unavailable Lei, Mitchell Attending Unavailable Oleghe, Efewongbe Referring Unavailable Oleghe, Efewongbe Primary Care Unavailable Roof Joseph ESTEVES Attending Unavailable Oleghe, Efewongbe Primary Care Unavailable Lei, Mitchell Attending Unavailable Lei, Barry Referring Unavailable Oleghe, Efewongbe Primary Care Unavailable Roof Joseph ESTEVES Attending Unavailable Oleghe, Efewongbe Referring Unavailable Prasanna Dsouza Attending Unavailable Oleghe, Efewongbe Referring Unavailable Oleghe, Efewongbe Primary Care Unavailable Oleghe, Efewongbe Primary Care Unavailable Oleghe, Efewongbe Referring Unavailable Roof FERRIS WHEEL OPERATOR, Joseph Dowell Attending Unavailable Oleghe, Efewongbe Primary Care Unavailable Oleghe, Efewongbe Referring Unavailable Oleghe, Efewongbe Attending Unavailable Oleghe, Efewongbe Primary Care Unavailable Oleghe, Efewongbe Referring Unavailable Oleghe, Efewongbe Attending Unavailable Allergies Allergy Classification Reported Allergen(s) Allergy Type Date of Onset Reaction(s) Facility (20 sources) esomeprazole; Translations: [ESOMEPRAZOLE MAGNESIUM] Drug Allergy 7 GI Upset [facility] Other [place] [facility] (20 sources) gemfibrozil; Translations: [GEMFIBROZIL] Drug Allergy 0 Intolerance [facility] Repository (20 sources) Amiodarone Drug Allergy 9 Other: See Comments [facility] Work Phone: (6 sources) clam allergenic extract Drug Allergy 1 Other: See Comments [facility] (1 source) Amiodarone Drug Allergy 5 [facility] Repository Medications Current Medications Medication Drug Class(es) Dates Sig (Normalized) Sig (Original) acetaminophen 500 mg oral tablet (20 sources) Start: 08-22-2017 Acetaminophen 500 MG tablet Active 1000 mg PO NEEDED as needed for Pain August 22, 2017 12:00am Start: 08-22-2017 Acetaminophen Active 1000 MG PO NEEDED August 22, 2017 12:00am take 1000 mg by mout h once daily as needed ACETAMINOPHEN (TYLENOL EXTRA STRENGTH ORAL) Take 1,000 mg by mouth once daily. As needed Active Comment on above: Take 1,000 mg by becky th once daily. As needed aspirin 81 mg delayed release oral tablet (20 sources) Platelet Aggregation Inhibitor, Nonsteroidal Anti-inflammatory Drug Start: 12-10-2023 take 1 tablet by mouth once daily Aspirin 81 mg tablet,delayed release (DR/EC) Active 81 mg PO daily December 10, 2023 12:00am Start: 08-22-2017 End: 09-30-2023 take 1 tablet by mouth at bedtime Aspirin 81 MG tablet,chewable Discontinued 81 mg PO AT BEDTIME August 22, 2017 12:00am September 30, 2023 12:07pm Start: 04-03-2015 take 1 tablet by becky th once daily aspirin, enteric coated (ECOTRIN LOW STRENGTH) 81 mg EC tablet Take 1 tablet by mouth once daily. 0 04/03/2015 Active Comment on above: Take 1 tablet by becky th once daily. Blood Glucose Control, Low (True Metrix Level 1) solution (20 sources) Start: 08-11-2022 Blood Glucose Control, Low (True Metrix Level 1) solution Active 0 .ROUTE .COMPLEX 1 August 11, 2022 4:53pm USE DIRECTED WITH GLUCOSE METER Start: 06-12-2022 End: 08-11-2022 Blood Glucose Control, Low ( True Metrix Level 1) solution Discontinued 0 .Route 1 June 12, 2022 2:38pm August 11, 2022 4:54pm As directed Start: 06-06-2022 End: 06-12-2022 Blood Glucose Control, Low ( True Metrix Level 1) solution Discontinued 0 .Route 1 June 06, 2022 12:52pm June 12, 2022 2:38pm As directed Start: 06-06-2022 End: 06-06-2022 Blood Glucose Control, Low ( True Metrix Level 1) solution Discontinued 0 .Route 1 June 06, 2022 12:00am June 06, 2022 12:53pm As directed Blood-Glucose Meter (Freesty le Lite Meter) kit (20 sources) Start: 05-06-2021 Blood-Glucose Meter (Freestyle Lite Meter) kit Active 0 .MEDSUPPLY May 06, 2021 12:33pm As directed, check blood glucose 2x daily for type 2 DM Start: 05-06-2021 Blood-Glucose Meter (Freestyle Lite Meter) kit Active 0 .MEDSUPPLY May 06, 2021 1:33pm As directed, check blood glucose 2x daily for type 2 DM Start: 05-01-2021 End: 05-06-2021 Blood-Glucose Meter (Freesty le Lite Meter) kit Discontinued 0 .MEDSUPPLY May 01, 2021 2:27pm May 06, 2021 1:33pm As directed, check blood glucose daily for type 2 DM Start: 05-01-2021 End: 05-06-2021 Blood-Glucose Meter (Freesty le Lite Meter) kit Discontinued 0 .MEDSUPPLY 1 April 30, 2021 11:00pm May 06, 2021 12:33pm As directed, check blood glucose daily for type 2 DM Start: 05-01-2021 End: 05-06-2021 Blood-Glucose Meter (Freesty le Lite Meter) kit Discontinued 0 .MEDSUPPLY 1 May 01, 2021 12:00am May 06, 2021 1:33pm As directed, check blood glucose daily for type 2 DM COMPOUNDED PRESCRIPTION (20 sources) Start: 05-05-2017 COMPOUNDED PRE SCRIPTION Oxygen 2-3 L by nasal cannula. Diagnosis hypoxia, systolic heart failure. Pulse oximetry at rest: Pulse oximetry with ambulation: Pulse oximetry with oxygen and ambulation: 1 Each 05/05/2017 Active Start: 05-05-2017 COMPOUNDED PRE SCRIPTION Oxygen 2-3 L by nasal cannula. Diagnosis hypoxia, systolic heart failure. Pulse oximetry at rest: Pulse oximetry with ambulation: Pulse oximetry with oxygen and ambulation: 1 Each 0 05/05/2017 Active Start: 06-05-2016 COMPOUNDED PRE SCRIPTION Home health S/P ablation for INR checks, assessment and eval of VS, HF and coumadin teaching. Eval for PT. Dx; cardiomyopathy, ID, arrhythmia, CAD, anticoagulation. 1 Each 06/05/2016 Active Start: 06-05-2016 COMPOUNDED PRE SCRIPTION HH S/P ablation for VT. Pt requires INR, assessment and eval VS, coumadin and HF teaching. Dx: Cardiomyopathy, ID, ventricular arrhythmia, CAD, anticoagulation. 1 Each 06/05/2016 Active Start: 06-05-2016 COMPOUNDED PRE SCRIPTION Home health S/P ablation for INR checks, assessment and eval of VS, HF and coumadin teaching. Eval for PT. Dx; cardiomyopathy, ID, arrhythmia, CAD, anticoagulation. 1 Each 0 06/05/2016 Active Start: 06-05-2016 COMPOUNDED PRE SCRIPTION HH S/P ablation for VT. Pt requires INR, assessment and eval VS, coumadin and HF teaching. Dx: Cardiomyopathy, ID, ventricular arrhythmia, CAD, anticoagulation. 1 Each 0 06/05/2016 Active Comment on above: Home health S/P abla tion for INR checks, assessment and eval of VS, HF and coumadin teaching. Eval for PT. Dx; cardiomyopathy, ID, arrhythmia, CAD, anticoagulation. S/P ablation for VT. Pt requires INR, assessment and eval VS, coumadin and HF teaching. Dx: Cardiomyopathy, ID, ventricular arrhythmia, CAD, anticoagulation. Oxygen 2-3 L by nasa l cannula. Diagnosis hypoxia, systolic heart failure. Pulse oximetry at rest: Pulse oximetry with ambulation: Pulse oximetry with oxygen and ambulation: cyclobenzaprine hydrochloride 10 mg oral tablet (20 sources) Muscle Relaxant Start: 023 End: take 1 tablet by mouth every twelve hours as needed for muscle spasms Cyclobenzaprine 10 mg tablet Active 10 mg PO Q12H as needed for Muscle Spasm 180 October 05, 2023 5:37pm Start: 03-10-2022 End: 10-29-2022 take 1 tablet by mouth every twelve hours as needed for muscle spasms Cyclobenzaprine 10 mg tablet Discontinued 10 mg PO Q12H as needed for Muscle Spasm March 10, 2022 5:04pm October 29, 2022 2:19pm Start: 10-07-2020 End: 03-10-2022 take 1 tablet by mouth three times daily as needed for muscle spasms Cyclobenzaprine 10 mg tablet Discontinued 10 mg PO THREE TIMES A DAY as needed for Muscle Spasm March 10, 2022 3:02pm March 10, 2022 5:05pm Start: 10-25-2018 End: 10-29-2020 take 1 tablet by mouth twice daily as needed for muscle spasms Cyclobenzaprine 10 mg tablet Discontinued 10 mg PO TWICE A DAY as needed for muscle spasm December 13, 2018 1:00am September 02, 2019 2:13pm Comment on above: Take 1 tablet by becky th three times daily as needed for muscle spasm. finasteride 5 mg oral tablet (6 sources) 5-alpha Reductase Inhibitor Start: 10-07-2023 End: 12-10-2023 take 1 tablet by mouth once daily Finasteride 5 mg tablet Active 5 mg PO daily December 10, 2023 1:04pm furosemide 20 mg oral tablet (20 sources) Loop Diuretic Start: 06-04-2024 take 10 mg by mouth once daily Furosemide 20 mg tablet Active 10 mg PO DAILY June 04, 2024 12:00am Start: 10-05-2023 End: 06-04-2024 take 1 tablet by mouth once daily Furosemide 20 mg tablet Discontinued 20 mg PO DAILY October 05, 2023 9:20am June 04, 2024 1:43am Start: 04-24-2022 End: 10-05-2023 Furosemide 40 mg tablet Disc ontinued 20 mg PO DAILY August 07, 2022 4:06pm October 05, 2023 9:17am Start: 04-24-2022 End: 08-07-2022 take 20 mg by mouth once daily Furosemide Active 20 MG PO DAILY August 07, 2022 4:06pm Start: 04-15-2022 End: 04-24-2022 take 1 tablet by mouth once daily Furosemide 40 mg tablet Discontinued 40 mg PO DAILY April 15, 2022 5:37pm April 24, 2022 3:20pm Start: 11-21-2021 End: 04-15-2022 take 1 tablet by mouth twice daily Furosemide 40 mg tablet Discontinued 40 mg PO TWICE A DAY November 21, 2021 2:01pm April 15, 2022 5:37pm Start: 04-18-2020 End: 11-21-2021 Furosemide 40 mg tablet Disc ontinued 60 mg PO TWICE A DAY October 07, 2021 3:58pm November 21, 2021 2:01pm Start: 04-18-2020 End: 11-21-2021 take 60 mg by mouth twice daily Furosemide Discontinue d 60 MG PO TWICE A DAY October 07, 2021 3:58pm November 21, 2021 2:01pm Start: 2020 End: 04-18-2020 Furosemide 40 mg tablet Disc ontinued 60 mg PO DAILY March 15, 2020 1:00am April 18, 2020 3:04pm Start: 2020 End: 04-18-2020 take 60 mg by mouth once daily Furosemide Discontinued 60 MG PO DAILY March 15, 2020 1:00am April 18, 2020 3:04pm Start: 04-21-2019 take 1.5 tablets by mouth twice daily furosemide (LASIX) 40 mg tablet Indications: Essential hypertension Take 1.5 tablets by mouth twice daily. 04/21/2019 Active Start: 04-18-2019 End: 2020 Furosemide 40 mg tablet Disc ontinued 60 mg PO TWICE A DAY 270 February 13, 2020 2:34pm 2020 12:26pm Start: 04-18-2019 End: 2020 take 60 mg by mouth twice daily Furosemide Discontinue d 60 MG PO TWICE A DAY 270 February 13, 2020 2:34pm 2020 12:26pm Start: 08-22-2017 End: 04-18-2019 take 1 tablet by mouth twice daily Furosemide 40 mg tablet Discontinued 40 mg PO TWICE A DAY 90 February 15, 2019 12:02pm April 18, 2019 9:52am Comment on above: Take 1.5 tablets by mouth twice daily. Handicap Placard (3 sources) Start: 07-20-2023 Handicap Placard Active 0 .ROUTE .MEDSUPPLY July 20, 2023 12:00am As directed, length of time 3 years hydrocortisone 25 mg/ml topical cream (5 sources) Corticosteroid Start: 06-04-2024 Hydrocortisone 2.5 % cream with perineal applicator Active 1 NMA RC TWICE DAILY NEEDED as needed for hemorrhoids June 04, 2024 12:00am Start: 07-20-2023 End: 12-10-2023 Hydrocortisone 2.5 % cream w ith perineal applicator Discontinued 1 NMA RC 1 to 2 times per day as needed for hemorrhoids July 20, 2023 12:00am December 10, 2023 1:05pm isopropyl alcohol 0.7 ml/ml medicated pad (20 sources) Start: 11-27-2022 End: 11-27-2022 Alcohol Swabs (Dropsafe Alco hol Prep Pads) pads, medicated Active 0 .ROUTE .COMPLEX November 27, 2022 10:57am USE DIRECTED Start: 06-06-2022 End: 08-01-2022 Alcohol Swabs (Alcohol Pads) pads, medicated Discontinued 100 NMA TOPICAL THREE TIMES A DAY June 12, 2022 2:38pm August 01, 2022 11:07am Start: 06-06-2022 End: 08-01-2022 Alcohol Swabs (Alcohol Pads) pads, medicated Discontinued 100 PAD TOPICAL THREE TIMES A DAY June 12, 2022 2:38pm August 01, 2022 11:07am Lactobacillus Combination No.8 (Adult Probiotic) 3 billion cell capsule (20 sources) Start: 09-02-2019 take 3 capsules by mouth once daily Lactobacillus Combination No.8 (Adult Probiotic) 3 billion cell capsule Active 3000 MMU CELLS PO DAILY September 02, 2019 2:12pm administer with a meal Start: 09-02-2019 take 3 capsules by m outh once daily Lactobacillus Combination No.8 (Adult Probiotic) 3 billion cell capsule Active 3000 NMA PO DAILY September 02, 2019 12:00am administer with a meal Start: 09-02-2019 take 3 capsules by m outh once daily Lactobacillus Combination No.8 (Adult Probiotic) 3 billion cell capsule Active 3000 MMU CELLS PO DAILY September 01, 2019 11:00pm administer with a meal Start: 09-02-2019 take 3 capsules by m outh once daily Lactobacillus Combination No.8 (Adult Probiotic) 3 billion cell capsule Active 3000 MMU CELLS PO DAILY September 02, 2019 12:00am administer with a meal Lancing Device (Truedraw Khanh cing Device) misc (20 sources) Start: 08-11-2022 Lancing Device (Truedraw Lancing Device) misc Active 0 .ROUTE .COMPLEX August 11, 2022 4:53pm USE DIRECTED Start: 06-06-2022 End: 08-11-2022 Lancing Device (Truedraw Khanh cing Device) misc Discontinued 0 .Route June 06, 2022 12:52pm August 11, 2022 4:54pm use three times daily to monitor blood glucose Start: 06-05-2022 End: 06-06-2022 Lancing Device (Truedraw Khanh cing Device) misc Discontinued 0 .Route 1 June 05, 2022 11:30am June 06, 2022 12:53pm use three times daily to monitor blood glucose Start: 02-05-2022 End: 06-05-2022 Lancing Device (Truedraw Khanh cing Device) misc Discontinued 0 .Route February 05, 2022 10:08am June 05, 2022 11:30am use three times daily to monitor blood glucose Start: 02-05-2022 Lancing Device (Truedraw Lancing Device) misc Active 0 .Route 1 February 05, 2022 10:08am use three times daily to monitor blood glucose Start: 02-05-2022 Lancing Device (Truedraw Lancing Device) misc Active 0 .Route February 05, 2022 9:08am use three times daily to monitor blood glucose Start: 02-05-2022 End: 02-05-2022 Lancing Device (Truedraw Khanh cing Device) misc Discontinued 0 .Route February 05, 2022 1:00am February 05, 2022 10:08am use three times daily to monitor blood glucose Start: 02-05-2022 End: 02-05-2022 Lancing Device (Truedraw Khanh cing Device) misc Discontinued 0 .Route February 05, 2022 12:00am February 05, 2022 9:08am use three times daily to monitor blood glucose Magnesium (9 sources) Start: 12-10-2023 take 1 tablet by becky th every week Magnesium 200 mg tablet Active 200 mg PO EVERY WEEK December 10, 2023 1:05pm Start: 04-24-2022 End: 12-10-2023 Magnesium 200 mg tablet Disc ontinued 200 mg PO .April 24, 2022 12:00am December 10, 2023 1:07pm Start: 04-24-2022 Magnesium Acti ve 200 MG PO .April 24, 2022 12:00am 24 hr metoprolol succinate 50 mg extended release oral tablet (20 sources) beta-Adrenergic Margaret Start: 07-06-2024 take 1 tablet by mouth once daily Metoprolol Succinate 50 mg tablet extended release 24 hr Active 50 mg PO DAILY July 06, 2024 4:04pm Start: 06-06-2024 End: 07-06-2024 Metoprolol Succinate 50 mg t ablet extended release 24 hr Discontinued 75 mg PO DAILY 135 June 06, 2024 2:00pm July 06, 2024 4:04pm Start: 08-20-2022 End: 06-06-2024 take 1 tablet by mouth once daily Metoprolol Succinate 50 mg tablet extended release 24 hr Discontinued 50 mg PO DAILY March 02, 2024 8:53am June 06, 2024 2:01pm Start: 10-21-2021 End: 08-20-2022 take 1 tablet by mouth once daily Metoprolol Succinate 25 mg tablet extended release 24 hr Discontinued 25 mg PO DAILY October 21, 2021 1:42pm August 20, 2022 3:00pm Start: 04-30-2021 End: 06-14-2021 Metoprolol Succinate 25 mg t ablet extended release 24 hr Discontinued 50 mg PO DAILY April 30, 2021 10:13am June 14, 2021 2:07pm 50mg in the afternoon Start: 04-30-2021 End: 06-14-2021 take 50 mg by mouth once daily Metoprolol Succinate Di scontinued 50 MG PO DAILY April 30, 2021 10:13am June 14, 2021 2:07pm 50mg in the afternoon Start: 10-07-2020 End: 04-30-2021 take 2 tablets by mouth once daily in the morning, then take 1 tablet by mouth in the evening Metoprolol Succinate 50 mg tablet extended release 24 hr Discontinued 25 mg PO DAILY October 07, 2020 7:02pm April 30, 2021 10:14am 50mg in AM and 25mg in PM Start: 08-22-2020 End: 04-30-2021 take 1 tablet by mouth once daily in the morning Metoprolol Succinate 25 mg tablet extended release 24 hr Discontinued 25 mg PO DAILY August 22, 2020 12:00am April 30, 2021 10:16am 50mg in the AM and 25mg in PM Start: 08-22-2020 End: 04-30-2021 take 50 mg by mouth once daily in the morning, then take 25 mg by mouth in the evening Metoprolol Succinate Discontinued 25 MG PO DAILY August 22, 2020 12:00am April 30, 2021 10:16am 50mg in the AM and 25mg in PM Start: 08-09-2019 End: 04-30-2021 take 50 mg by mouth once daily in the morning, then take 25 mg by mouth in the evening Metoprolol Succinate Discontinued 25 MG PO DAILY October 07, 2020 7:02pm April 30, 2021 10:14am 50mg in AM and 25mg in PM Start: 07-28-2019 End: 10-21-2021 take 1 tablet by mouth once daily Metoprolol Succinate 50 mg tablet extended release 24 hr Discontinued 50 mg PO DAILY October 16, 2021 9:38am October 21, 2021 1:42pm 50mg in the afternoon Start: 08-22-2017 End: 07-28-2019 take 1 tablet by mouth once daily Metoprolol Succinate 25 mg tablet extended release 24 hr Discontinued 25 mg PO DAILY 90 September 20, 2018 12:53pm July 28, 2019 8:23am Comment on above: Take 1 tablet by becky th once daily. Dr. Odom nitroglycerin 0.4 mg sublingual tablet (20 sources) Nitrate Vasodilator Start: 06-08-2024 Nitroglycerin 0.4 mg tablet, sublingual Active 0.4 mg SL every 5 to 15 minutes as needed for chest pain June 08, 2024 12:00am do not exceed 3 doses per episode Start: 07-11-2020 End: 08-22-2020 Nitroglycerin 0.4 mg tablet, sublingual Discontinued 0.4 mg SL every 5 to 15 minutes as needed for chest pain July 11, 2020 12:00am August 22, 2020 2:26pm do not exceed 3 doses per episode Start: 07-11-2020 End: 08-22-2020 Nitroglycerin Discontinued 0 .4 MG SL every 5 to 15 minutes July 11, 2020 12:00am August 22, 2020 2:26pm do not exceed 3 doses per episode potassium chloride 10 meq extended release oral tablet (20 sources) Start: 10-21-2023 take 2 capsules by mouth twice daily Potassium Chloride 10 mEq capsule, extended release Active 20 meq PO TWICE A DAY 360 October 21, 2023 12:51pm Start: 11-10-2022 Potassium Chlo ride Active 0 .ROUTE .COMPLEX 360 November 10, 2022 1:09pm TAKE 2 CAPSULES TWICE DAILY Start: 12-20-2020 End: 11-10-2022 Potassium Chloride Discontin ued 0 .ROUTE .COMPLEX 360 October 28, 2021 4:52pm November 10, 2022 1:09pm TAKE 2 CAPSULES (20 MEQ) TWICE DAILY Start: 03-15-2020 End: 12-20-2020 take 20 mEq by mouth twice daily Potassium Chloride Discontinued 20 MEQ PO TWICE A DAY 360 December 20, 2020 10:20am December 20, 2020 12:35pm Start: 2020 End: 03-15-2020 take 2 tablets by mouth twice daily Potassium Chloride 10 mEq tablet extended release Discontinued 20 meq PO TWICE A DAY 360 2020 1:00am March 15, 2020 2:07pm Start: 2020 End: 03-15-2020 take 20 mEq by mouth twice daily Potassium Chloride Discontinued 20 MEQ PO TWICE A DAY 360 2020 1:00am March 15, 2020 2:07pm Start: 04-21-2019 End: 10-21-2023 Potassium Chloride 10 mEq ca psule, extended release Discontinued 0 .ROUTE .COMPLEX 360 November 10, 2022 1:09pm October 21, 2023 12:52pm TAKE 2 CAPSULES TWICE DAILY Start: 04-18-2019 End: 2020 take 2 tablets by mouth twice daily Potassium Chloride 10 mEq tablet,ER particles/crystals Discontinued 20 meq PO TWICE A DAY 360 February 13, 2020 2:34pm 2020 12:26pm Start: 04-18-2019 End: 2020 take 20 mEq by mouth twice daily Potassium Chloride Discontinued 20 MEQ PO TWICE A DAY 360 February 13, 2020 2:34pm 2020 12:26pm Start: 08-22-2017 End: 04-18-2019 take 1 tablet by mouth twice daily Potassium Chloride 10 mEq tablet,ER particles/crystals Discontinued 10 meq PO TWICE A DAY 180 September 28, 2018 10:59am April 18, 2019 9:52am Comment on above: Take 2 capsules by m out twice daily. spironolactone 25 mg oral tablet (20 sources) Aldosterone Antagonist Start: 06-07-19 take 1 tablet by mouth once daily Spironolactone 25 mg tablet Active 25 mg PO daily 90 June 06, 2024 1:59pm Start: 08-23-2017 End: 06-06-2024 take 1 tablet by mouth twice daily Spironolactone 25 mg tablet Discontinued 25 mg PO TWICE A DAY 180 November 30, 2023 3:03pm June 06, 2024 2:01pm Comment on above: Take 1 tablet by becky twice daily. (Moodispaw) Completed/Discontinued Medications Medication Drug Class(es) Dates Sig (Normalized) Sig (Original) acetaminophen 325 mg / oxyCODONE hydrochloride 5 mg oral tablet (20 sources) Opioid Agonist Start: 10-08-2020 End: 04-30-2021 Oxycodone-Acetamino phen (Percocet) 5-325 mg tablet Discontinued 1 {tbl} PO EVERY 6 HOURS 12 3 October 08, 2020 April 30, 2021 10:14am Alcohol Swabs (Dropsafe Alcohol Prep Pads) pads, medicated (12 sources) Start: 08-11-2022 End: 11-27-2022 Alcohol Swabs (Dropsafe Alcohol Prep Pads) pads, medicated Discontinued 0 .ROUTE .COMPLEX August 11, 2022 4:53pm November 27, 2022 10:57am USE DIRECTED Start: 08-11-2022 Alcohol Swabs (Dropsafe Alcohol Prep Pads) pads, medicated Active 0 .ROUTE .COMPLEX August 11, 2022 4:53pm USE DIRECTED Start: 08-01-2022 End: 08-11-2022 Alcohol Swabs (Dropsafe Alco hol Prep Pads) pads, medicated Discontinued 0 .ROUTE .COMPLEX August 01, 2022 11:07am August 11, 2022 4:54pm USE DIRECTED THREE TIMES DAILY amoxicillin 500 mg oral tablet (3 sources) Penicillin-class Antibacterial Start: 01-04-2024 End: 01-27-2024 take 1 tablet by mouth three times daily Amoxicillin 500 mg tablet Discontinued 500 mg PO THREE TIMES A DAY January 04, 2024 1:00am January 27, 2024 3:49pm amoxicillin 875 mg / clavulanate 125 mg oral tablet (3 sources) Penicillin-class Antibacterial Start: 06-17-2023 End: 07-20-2023 Amoxicillin-Pot Clavulanate 875-125 mg tablet Discontinued 1 {tbl} PO TWICE A DAY June 17, 2023 12:00am July 20, 2023 1:49pm atorvastatin 40 mg oral tablet (20 sources) HMG-CoA Reductase Inhibitor Start: 05-15-2016 End: 05-16-2024 take 1 tablet by mouth at bedtime Atorvastatin 40 mg tablet Discontinued 40 mg PO AT BEDTIME August 03, 2023 1:00pm May 16, 2024 8:58am Comment on above: Take 1 tablet by ebcky th once daily. cefdinir 300 mg oral capsule (3 sources) Cephalosporin Antibacterial Start: 09-30-2023 End: 10-07-2023 take 1 capsule by mouth twice daily Cefdinir 300 mg capsule Discontinued 300 mg PO TWICE A DAY September 30, 2023 12:00am October 07, 2023 10:26am doxycycline hyclate 100 mg oral tablet (20 sources) Tetracycline-class Drug Start: 10-07-2020 End: 04-30-2021 take 1 tablet by mouth twice daily Doxycycline Hyclate 100 mg tablet Discontinued 100 mg PO TWICE A DAY October 07, 2020 12:00am April 30, 2021 10:15am empagliflozin 25 mg oral tablet (6 sources) Sodium-Glucose Cotransporter 2 Inhibitor Start: 04-24-2022 End: 07-28-2022 take 1 tablet by mouth once daily in the morning Empagliflozin (Jardiance) 25 mg tablet Discontinued 25 mg PO EVERY MORNING April 24, 2022 12:00am July 28, 2022 2:02pm famotidine 20 mg oral tablet (20 sources) Histamine-2 Receptor Antagonist Start: 04-30-2021 End: 05-23-2021 Famotidine (Pepcid) 40 mg tablet Discontinued 20 mg PO DAILY April 30, 2021 10:15am May 23, 2021 1:08pm Start: 08-06-2020 End: 11-30-2023 take 1 tablet by mouth once daily Famotidine 20 mg tablet Discontinued 20 mg PO DAILY February 10, 2023 1:00pm November 30, 2023 4:13pm Start: 07-11-2020 End: 04-30-2021 take 1 tablet by mouth once daily Famotidine (Pepcid) 40 mg tablet Discontinued 40 mg PO DAILY July 11, 2020 12:00am April 30, 2021 10:16am Comment on above: [facility]. fluticasone propionate 0.05 mg/actuat metered dose nasal spray (20 sources) Corticosteroid Start: 08-22-2017 End: 03-09-2018 Fluticasone Propionate 1 SPRAY spray,suspension Discontinued 1 NMA NASAL DAILY August 22, 2017 12:00am March 09, 2018 3:27pm Start: 08-22-2017 End: 03-09-2018 Fluticasone Propionate Disco ntinued 1 SPRAY NASAL DAILY August 22, 2017 12:00am March 09, 2018 3:27pm glimepiride 4 mg oral tablet (20 sources) Sulfonylurea Start: 06-24-2022 End: 05-22-2023 take 1 tablet by mouth twice daily Glimepiride 4 mg tablet Discontinued 4 mg PO TWICE A DAY 180 90 August 13, 2022 11:44am May 22, 2023 1:20pm Start: 06-03-2022 End: 06-24-2022 Glimepiride Discontinued 6 M G PO EVERY MORNING 135 90 June 09, 2022 10:50am June 24, 2022 8:49am Take 4 mg in the morning and 2 mg at night. Start: 05-01-2021 End: 06-24-2022 Glimepiride 4 mg tablet Disc ontinued 6 mg PO EVERY MORNING 135 90 June 09, 2022 10:50am June 24, 2022 8:49am Take 4 mg in the morning and 2 mg at night. Lactobac no.41/Bifidobact no.7 (PROBIOTIC-10 ORAL) (6 sources) Lactobac no.41/B ifidobact no.7 (PROBIOTIC-10 ORAL) Take by mouth. 0 Active Comment on above: Take by mouth. loperamide hydrochloride 2 mg oral capsule (20 sources) Opioid Agonist Start: 05-06-2021 End: 04-09-2022 Loperamide 2 mg capsule Discontinued 2 mg PO .COMPLEX as needed for loose stool August 05, 2021 2:39pm April 09, 2022 2:19pm Take 4 mg by mouth once and then 2 mg by mouth after each loose stool Start: 05-06-2021 End: 04-09-2022 Loperamide Discontinued 2 MG PO .COMPLEX August 05, 2021 2:39pm April 09, 2022 2:19pm Take 4 mg by mouth once and then 2 mg by mouth after each loose stool Start: 04-30-2021 End: 05-06-2021 take 1 tablet by mouth every six hours as needed Loperamide 2 mg tablet Discontinued 2 mg PO EVERY 6 HOURS as needed April 30, 2021 12:00am May 06, 2021 11:45am Start: 01-23-2020 take 1 tablet by becky th once daily as needed loperamide HCl (IMODIUM A-D) 2 mg tab Indications: Diarrhea, unspecified type , Generalized abdominal pain Take 1 tablet by mouth as needed. for 3 or more BMs per day 30 tablet 3 01/23/2020 Active Start: 03-09-2018 End: 09-02-2019 Loperamide 2 mg tablet Disco ntinued 2 mg PO every 1 to 4 hours as needed for Diarrhea March 09, 2018 1:00am September 02, 2019 2:14pm Comment on above: Take 1 tablet by becky th as needed. for 3 or more BMs per day magnesium oxide 400 mg oral tablet (20 sources) Start: 02-18-2016 End: 04-09-2022 Magnesium Oxide 400 MG tablet Discontinued 400 mg PO MOWEFR May 15, 2016 7:17pm April 09, 2022 2:18pm Start: 03-22-2015 End: 05-15-2016 take 1 tablet by mouth once daily Magnesium Oxide 400 MG tablet Discontinued 400 mg PO DAILY 100 March 22, 2015 1:00am May 15, 2016 7:17pm Comment on above: 1 tablet twice weekl y metFORMIN hydrochloride 1000 mg oral tablet (20 sources) Biguanide Start: End: take 1 tablet by mouth twice daily Metformin 1,000 mg tablet Discontinued 1000 mg PO TWICE A DAY 180 June 03, 2023 12:20pm May 18, 2024 3:01pm Start: 06-05-2021 End: 04-24-2022 take 1 tablet by mouth twice daily Metformin 1,000 mg tablet Discontinued 1000 mg PO TWICE A DAY 180 October 16, 2021 9:38am April 24, 2022 3:33pm Start: 05-01-2021 End: 06-05-2021 take 1 tablet by mouth twice daily Metformin 500 mg tablet Discontinued 500 mg PO TWICE A DAY 60 May 01, 2021 12:00am June 05, 2021 4:04pm Start: 12-18-2020 metFORMIN (GLU COPHAGE) 500 mg tablet Indications: Controlled type 2 diabetes mellitus with stage 3 chronic kidney disease, without long-term current use of insulin (HCC) Take 1 tablet by mouth daily with breakfast. 90 tablet 3 12/18/2020 Active Comment on above: Take 1 tablet by becky th daily with breakfast. nitrofurantoin, macrocrystals 25 mg / nitrofurantoin, monohydrate 75 mg oral capsule (20 sources) Nitrofuran Antibacterial Start: End: take 1 capsule by mouth every twelve hours at mealtime Nitrofurantoin Monohyd/M-Cryst (Macrobid) 100 mg capsule Discontinued 100 mg PO Q12H 14 July 03, 2021 12:00am July 09, 2021 12:00am July 10, 2021 12:07am must administer with a meal/food ondansetron 4 mg oral tablet (20 sources) Serotonin-3 Receptor Antagonist Start: End: take 1 tablet by mouth every eight hours as needed for nausea and vomiting Ondansetron Hcl 4 mg tablet Discontinued 4 mg PO Q8H as needed for nausea and vomiting May 06, 2021 12:00am October 29, 2022 2:20pm Start: 04-30-2021 End: 05-06-2021 take 1 tablet by mouth every six hours as needed Ondansetron Hcl 4 mg tablet Discontinued 4 mg PO EVERY 6 HOURS as needed April 30, 2021 12:00am May 06, 2021 11:45am Start: 01-23-2020 End: 12-18-2020 take 1 tablet by mouth once daily as needed for nausea ondansetron (ZOFRAN) 4 mg tablet Indications: Nausea Take 1 tablet by mouth once daily as needed. for nausea 30 tablet 3 01/23/2020 12/18/2020 Discontinued Start: 02-12-2018 End: 09-02-2019 take 1 tablet by mouth every eight hours as needed for nausea Ondansetron 4 MG tablet Discontinued 4 mg PO EVERY 8 HOURS NEEDED as needed for Nausea February 12, 2018 1:00am September 02, 2019 2:13pm pantoprazole 40 mg delayed release oral tablet (20 sources) Proton Pump Inhibitor Start: 10-16-2021 End: 05-27-2023 take 1 tablet by mouth twice daily Pantoprazole 40 mg tablet,delayed release (DR/EC) Discontinued 40 mg PO TWICE A DAY 180 July 21, 2022 8:24am May 27, 2023 5:17pm Start: 06-22-2021 take 1 tablet by becky twice daily pantoprazole DR (PROTONIX) 40 mg tablet Indications: Gastroesophageal reflux disease without esophagitis Take 1 tablet by mouth twice daily. 180 tablet 3 06/22/2021 Active Start: 06-22-2021 take 1 tablet by becky th twice daily pantoprazole DR (PROTONIX) 40 mg tablet Indications: Gastroesophageal reflux disease without esophagitis Take 1 tablet by mouth twice daily. 180 tablet 3 06/22/2021 Active Start: 06-22-2021 take 1 tablet by becky th twice daily pantoprazole DR (PROTONIX) 40 mg tablet Indications: Gastroesophageal reflux disease without esophagitis Take 1 tablet by mouth twice daily. 180 tablet 3 06/22/2021 Active Start: 06-22-2021 take 1 tablet by becky th twice daily pantoprazole DR (PROTONIX) 40 mg tablet Indications: Gastroesophageal reflux disease without esophagitis Take 1 tablet by mouth twice daily. 180 tablet 3 06/22/2021 Active Start: 06-22-2021 take 1 tablet by becky th twice daily pantoprazole DR (PROTONIX) 40 mg tablet Indications: Gastroesophageal reflux disease without esophagitis Take 1 tablet by mouth twice daily. 180 tablet 3 06/22/2021 Active Start: 06-22-2021 take 1 tablet by becky th twice daily pantoprazole DR (PROTONIX) 40 mg tablet Indications: Gastroesophageal reflux disease without esophagitis Take 1 tablet by mouth twice daily. 180 tablet 3 06/22/2021 Active Start: 2020 End: 04-18-2020 take 1 tablet by mouth once daily Pantoprazole 40 mg tablet,delayed release (DR/EC) Discontinued 40 mg PO DAILY March 15, 2020 1:00am April 18, 2020 3:04pm Start: 06-11-2013 End: 10-16-2021 take 1 tablet by mouth twice daily Pantoprazole 40 mg tablet,delayed release (DR/EC) Discontinued 40 mg PO TWICE A DAY February 13, 2020 2:34pm 2020 12:26pm Comment on above: Take 1 tablet by becky th twice daily. psyllium 520 mg oral capsule (20 sources) Start: 09-02-2019 End: 04-18-2020 Psyllium Husk (Metamucil) 0.52 gram capsule Discontinued 0.52 g PO DAILY September 02, 2019 12:00am April 18, 2020 3:03pm Start: 08-23-2017 End: 03-09-2018 Metamucil Discontinued PO DA JACINTO August 23, 2017 4:52am March 09, 2018 3:28pm Start: 08-23-2017 End: 03-09-2018 Metamucil Discontinued PO DA JACINTO August 22, 2017 11:00pm March 09, 2018 2:28pm Start: 08-23-2017 End: 03-09-2018 Metamucil Discontinued PO DA JACINTO August 23, 2017 12:00am March 09, 2018 3:28pm sacubitril 49 mg / valsartan 51 mg oral tablet (20 sources) Angiotensin 2 Receptor Margaret Start: 05-15-2016 End: 04-04-2024 Sacubitril-Valsartan (Entresto) 49-51 mg tablet Discontinued 1 {tbl} PO TWICE A DAY March 18, 2024 2:11pm April 04, 2024 2:27pm Start: 05-15-2016 End: 2020 take 1 tablet by mouth twice daily Sacubitril-Valsartan Discontinued 1 TABLET PO TWICE A DAY February 13, 2020 2:34pm 2020 12:26pm Comment on above: Take 1 tablet by becky th twice daily. (Moodispaw) tamsulosin hydrochloride 0.4 mg oral capsule (3 sources) alpha-Adrenergic Margaret Start: 09-30-19 End: 04-29-19 take 1 capsule by mouth once daily Tamsulosin (Flomax) 0.4 mg capsule Discontinued 0.4 mg PO DAILY September 30, 2023 12:00am April 28, 2024 2:28pm thioctic acid 600 mg oral capsule (20 sources) Start: 04-21-19 End: 10-27-19 take 1 capsule by mouth once Alpha Lipoic Acid 600 mg capsule Discontinued 600 mg PO ONCE December 13, 2018 1:00am March 04, 2019 2:54pm traZODone hydrochloride 50 mg oral tablet (20 sources) Serotonin Reuptake Inhibitor Start: 11-08-19 End: 10-21-19 24 take 1 tablet by mouth at bedtime Trazodone 50 mg tablet Discontinued 50 mg PO AT BEDTIME January 22, 2023 2:53pm October 21, 2023 1:32pm Comment on above: Take 1 tablet by becky th daily at bedtime. warfarin sodium 7.5 mg oral tablet (20 sources) Vitamin K Antagonist Start: 07-20-19 End: 01-27-20 Warfarin 7.5 mg tablet Discontinued 0 mg .ROUTE .COMPLEX 90 January 18, 2024 10:57am January 27, 2024 3:51pm TAKE 1 TABLET five times per week 1/2 tablet twice weekly Please contact the information source for Protocol details. Start: 07-16-2021 End: 04-24-2022 Warfarin 7.5 mg tablet Disco ntinued 7.5 mg PO CATHERINETUWEFMIGUEL ANGEL July 16, 2021 1:56pm April 24, 2022 3:20pm Current dose is 5 mg on , 7.5 mg all other days. Please contact the information source for Protocol details. Start: 06-18-2020 End: 07-12-2021 Warfarin 7.5 mg tablet Disco ntinued 7.5 mg PO SUMO 30 July 10, 2021 2:24pm July 12, 2021 1:45pm 2 days a week or as directed Please contact the information source for Protocol details. Start: 06-18-2020 End: 07-16-2021 take 1 tablet by mouth six times weekly Warfarin 7.5 mg tablet Discontinued 7.5 mg PO 6 times per week July 12, 2021 1:45pm July 16, 2021 12:23pm 6 days a week or as directed; Please contact the information source for Protocol details. Start: 02-17-2018 End: 07-20-2023 Warfarin 7.5 mg tablet Disco ntinued 0 mg .ROUTE .COMPLEX 90 April 06, 2023 9:00am July 20, 2023 1:50pm TAKE 1 TABLET EVERY DAY Please contact the information source for Protocol details. Start: 08-22-2017 End: 04-24-2022 Warfarin 5 mg tablet Discont inued 5 mg PO .COMPLEX 180 April 18, 2022 4:03pm April 24, 2022 3:16pm 5 mg orally 1 tablet on , and 1.5 tblets (7.5 mg) all other days of the week; or as directed; Please contact the information source for Protocol details. Comment on above: Take 1 tablet by becky th once daily. Problems Active Problems Problem Classification Problem Date Documented Da te Episodic/Chronic Abdominal pain (20 sources) Epigastric pain; Translations: [Epigastric pain] Onset: 7 Resolved: 1 01-27-2017 Episodic Acute and unspecified renal failure (20 sources) Acute renal failure syndrome; Translations: [Acute kidney failure, unspecified] 08-23-2017 Episodic Cardiac dysrhythmias (20 sources) Paroxysmal atrial fibrillation; Translations: [Paroxysmal atrial fibrillation] Onset: 6 Resolved: 1 07-10-2015 Chronic Chronic kidney disease (20 sources) Chronic kidney disease stage 3; Translations: [Stage 3 chronic kidney disease] Chronic Chronic obstructive pulmonary disease and bronchiectasis (3 sources) Bronchitis; Translations: [Bronchitis, not specified as acute or chronic] 06-17-2023 Episodic Conduction disorders (20 sources) Finding of cardiovascular device; Translations: [Encounter for adjustment and management of automatic implantable cardiac defibrillator] Onset: 4 07-10-2015 Chronic Comment on above: [facility] [id number] - Implant 06/21/13, gen change 07/04/21 Congestive heart failure; nonhypertensive (20 sources) Chronic systolic heart failure; Translations: [Chronic systolic (congestive) heart failure] Chronic Coronary atherosclerosis and other heart disease (20 sources) Coronary atherosclerosis; Translations: [Atherosclerotic heart disease of 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; Translations: [Presence of coronary angioplasty implant and graft] Onset: 4 04-30-2015 Episodic Comment on above: PCI/BROOKE of the mid L AD 02/21/13 Diabetes mellitus with complications (20 sources) Type 2 diabetes mellitus; Translations: [Type 2 diabetes mellitus with diabetic chronic kidney disease] Onset: 1 02-18-2021 Chronic Diabetes mellitus without complication (20 sources) Type 2 diabetes mellitus without complications; Translations: [Diabetes mellitus without mention of complication, type II or unspecified type, not stated as uncontrolled] Onset: 5 Chronic Diabetes mellitus without complication (20 sources) Hyperglycemia; Translations: [Hyperglycemia, unspecified] Onset: 0 Resolved: 2 05-01-2021 Episodic Disorders of lipid metabolism (20 sources) Mixed hyperlipidemia; Translations: [Mixed hyperlipidemia] Onset: 8 04-06-2015 Chronic Esophageal disorders (7 sources) Gastroesophageal reflux disease; Translations: [Gastro-esophageal reflux disease without esophagitis] Onset: 5 04-10-2014 Chronic Essential hypertension (20 sources) Essential hypertension; Translations: [Essential (primary) hypertension] Onset: 0 04-06-2015 Chronic Fluid and electrolyte disorders (20 sources) Dehydration; Translations: [Dehydration] 08-23-2017 Episodic Hemorrhoids (3 sources) Hemorrhoids; Translations: [Unspecified hemorrhoids] 07-20-2023 Episodic Hyperplasia of prostate (20 sources) Benign prostatic hyperplasia; Translations: [Benign prostatic hyperplasia without lower urinary tract symptoms] Onset: 5 Chronic Nausea and vomiting (20 sources) Nausea; Translations: [Nausea and vomiting] Onset: 7 Resolved: 1 08-23-2017 Episodic Noninfectious gastroenteritis (20 sources) Chronic diarrhea; Translations: [Noninfective gastroenteritis and colitis, unspecified] Episodic Nonspecific chest pain (12 sources) Chest pain; Translations: [Chest pain, unspecified] Onset: 5 04-09-2022 Episodic Other aftercare (20 sources) Long-term current use of anticoagulant; Translations: [continuous churn buttermaker (current) use of anticoagulants] Onset: 6 10-23-2015 Episodic Other ear and sense organ disorders (3 sources) Hearing difficulty; Translations: [Unspecified hearing loss, unspecified ear] 10-21-2023 Chronic Other gastrointestinal disorders (6 sources) Swallowing painful; Translations: [Dysphagia, unspecified] 04-28-2024 Episodic Other gastrointestinal disorders (3 sources) Diarrhea; Translations: [Diarrhea, unspecified] 10-08-2023 Episodic Other gastrointestinal disorders (1 source) Dysphagia, pharyngeal phase; Translations: [Dysphagia, pharyngeal phase] Onset: 5 Episodic Other liver diseases (7 sources) Liver cyst; Translations: [Other specified diseases of liver] Onset: 8 05-01-2017 Chronic Other lower respiratory disease (1 source) Disorder of lung; Translations: [Other disorders of lung] Episodic Other lower respiratory disease (2 sources) Dyspnea; Translations: [Dyspnea, unspecified] Episodic Other lower respiratory disease (20 sources) Dyspnea on exertion; Translations: [Dyspnea, unspecified] 06-17-2021 Episodic Other lower respiratory disease (5 sources) Dyspnea, unspecified; Translations: [Other respiratory abnormalities] Episodic Other lower respiratory disease (12 sources) Other forms of dyspnea; Translations: [Other respiratory abnormalities] Episodic Other nutritional; endocrine; and metabolic disorders (7 sources) Obese class I; Translations: [Obesity, unspecified] Onset: 9 05-09-2018 Chronic Other nutritional; endocrine; and metabolic disorders (20 sources) Unintentional weight loss; Translations: [Abnormal weight loss] 04-30-2021 Episodic Other nutritional; endocrine; and metabolic disorders (6 sources) Abnormal weight loss; Translations: [Loss of weight] Episodic Poisoning by other medications and drugs (20 sources) Amiodarone poisoning; Translations: [Poisoning by other antidysrhythmic drugs, accidental (unintentional), initial encounter] Episodic Residual codes; unclassified (20 sources) Hypoxia; Translations: [Idiopathic sleep related nonobstructive alveolar hypoventilation] 06-27-2021 Chronic Comment on above: 2.5 L with sleep Residual codes; unclassified (9 sources) Idiopathic sleep related nonobstructive alveolar hypoventilation; Translations: [Idiopathic sleep related non-obstructive alveolar hypoventilation] Chronic Residual codes; unclassified (4 sources) Obstructive sleep apnea syndrome; Translations: [Obstructive sleep apnea (adult) (pediatric)] 04-16-2023 Chronic Residual codes; unclassified (4 sources) Hypersomnia; Translations: [Hypersomnia, unspecified] 04-16-2023 Chronic Residual codes; unclassified (1 source) Hypersomnia, unspecified; Translations: [Hypersomnia, unspecified] 04-16-2023 Chronic Residual codes; unclassified (1 source) Obstructive sleep apnea (adult) (pediatric); Translations: [Obstructive sleep apnea (adult)(pediatric)] 04-16-2023 Chronic Residual codes; unclassified (20 sources) History of radiofrequency ablation operation for arrhythmia; Translations: [Other specified postprocedural states] 12-03-2018 Episodic Comment on above: 01/24, 05/26 Dr. Sidney morales Residual codes; unclassified (20 sources) Other specified postprocedural states; Translations: [Personal history of surgery to heart and great vessels, presenting hazards to health] Onset: 5 Episodic Spondylosis; intervertebral disc disorders; other back problems (6 sources) Degeneration of thoracolumbar intervertebral disc; Translations: [Other intervertebral disc degeneration, thoracolumbar region] Onset: 1 06-27-2020 Chronic Spondylosis; intervertebral disc disorders; other back problems (20 sources) Low back pain; Translations: [Lumbago] Onset: 6 10-15-2005 Episodic Substance-related disorders (20 sources) Tobacco smoking behavior - finding; Translations: [Nicotine dependence, unspecified, uncomplicated] Onset: 4 Chronic Comment on above: 100 pack year histor y, quit 2015 Unclassified (1 source) Unknown / UNK(Unknown) Onset: 8 Unclassified (1 source) Nodule of lung; Translations: [Lung nodule < 6cm on CT] Onset: 8 05-01-2017 Unclassified (1 source) Cough, unspecified; Translations: [Cough, unspecified] Onset: 4 Viral infection (4 sources) Viral disease; Translations: [Viral infection, unspecified] 01-27-2024 Episodic Past or Other Problems Problem Classification Problem Date Documented Da te Episodic/Chronic Abdominal hernia (14 sources) Inguinal hernia; Translations: [Unilateral inguinal hernia, without obstruction or gangrene, not specified as recurrent] Onset: 02-18-2017 02-18-2017 Episodic Biliary tract disease (7 sources) Common bile duct calculus; Translations: [Calculus of bile duct without cholangitis or cholecystitis without obstruction] Onset: 05-01-2017 05-01-2017 Episodic Genitourinary symptoms and ill-defined conditions (4 sources) Ramu hematuria; Translations: [Gross hematuria] Onset: 09-30-2023 10-08-2023 Episodic Immunizations and screening for infectious disease (20 sources) Needs influenza immunization; Translations: [Encounter for immunization] Onset: 10-21-2023 Episodic Neoplasms of unspecified nature or uncertain behavior (1 source) Neoplasm of brain; 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] Onset: 02-26-2009 Resolved: 12-14-2020 12-14-2020 Chronic Other aftercare (1 source) Long-term current use of drug therapy; Translations: [Encounter for therapeutic drug level monitoring] Onset: 10-23-2015 Resolved: 12-14-2020 12-14-2020 Episodic Other circulatory disease (7 sources) History of cerebrovascular accident; Translations: [Personal history of transient ischemic attack (TIA), and cerebral infarction without residual deficits] Onset: 02-21-2009 12-14-2020 Episodic Other circulatory disease (7 sources) History of cardiac arrhythmia; Translations: [Personal history of other diseases of the circulatory system] Onset: 04-20-2017 04-20-2017 Episodic Other connective tissue disease (1 source) Lateral epicondylitis; Translations: [Lateral epicondylitis, unspecified elbow] Onset: 01-09-2006 Resolved: 04-05-2007 08-20-2023 Episodic Other diseases of kidney and ureters (7 sources) Renal impairment; Translations: [Disorder of kidney and ureter, unspecified] Onset: 07-24-2015 07-24-2015 Episodic Other diseases of kidney and ureters (7 sources) Cyst of kidney; Translations: [Cyst of kidney, acquired] Onset: 05-01-2017 05-01-2017 Episodic Other gastrointestinal disorders (1 source) Diarrhea, unspecified; Translations: [Diarrhea, unspecified] Onset: 09-30-2023 Episodic Other lower respiratory disease (1 source) Solitary pulmonary nodule Onset: 05-01-2017 Episodic Other lower respiratory disease (6 sources) Nodule of lung; Translations: [Solitary pulmonary nodule] Onset: 05-01-2017 05-01-2017 Episodic Other male genital disorders (7 sources) Pain of right testicle; Translations: [Right testicular pain] Onset: 03-27-2017 03-27-2017 Episodic Other nervous system disorders (1 source) Carpal tunnel syndrome; Translations: [Carpal tunnel syndrome, unspecified upper limb] Onset: 01-09-2006 Resolved: 04-05-2007 08-20-2023 Chronic Other non-traumatic joint disorders (7 sources) Joint pain; Translations: [Pain in joint, other specified sites] Onset: 04-05-2007 04-05-2007 Episodic Other non-traumatic joint disorders (7 sources) Arthralgia of the pelvic region and thigh; Translations: [Pain in unspecified hip] Onset: 06-12-2009 06-12-2009 Episodic Other screening for suspected conditions (not mental disorders or infectious disease) (3 sources) Deviation of international normalized ratio from target range; Translations: [Abnormal coagulation profile] Onset: 04-11-2024 06-04-2024 Episodic Urinary tract infections (5 sources) Acute urinary tract infection; Translations: [Urinary tract infection, site not specified] Onset: 09-30-2023 10-08-2023 Episodic Results Test Name Value Interpretation Reference Range Facility Esophagus Dual Contraston Esophagus Dual Contrast Normal [facility] Cardiology Visit Reporton Cardiology Visit Report Normal [facility] No Panel Informationon 06-24 INR International Normalized Ratio 2.3 [facility] Cardiology Visit Reporton Cardiology Visit Report Normal [facility] Absolute lymphocyte countOrd ered By: Jeb Cuellar on 06-04-2024 Lymphocytes Auto (Unsp spec) [#/Vol] 4.04 10*3/uL 0.83-4.51 [facility] Absolute neutrophil countOrd ered By: [place] Alisa on 06-04-2024 Neutrophils (Bld) [#/Vol] 4.6 10*3/uL 2.0-7.7 [facility] Anion gap in Serum or Plasma Ordered By: Jeb Cuellar on 06-04-2024 Anion gap [Moles/Vol] 15 mmol/L 5- [facility] Automated lymphocyte count a s percentage of total leukocytesOrdered By: Jeb Cuellar on 06-04-2024 Lymphocytes/100 WBC Auto (Unsp spec) 40.9 % [facility] BUN/creatinine ratioOrdered By: [facility] on 06-04-2024 Urea nitrogen/Creatinine [Mass ratio] 11.1 mg/mg 11-28 [facility] Basic Metabolic Profile (BMP )on 06-04-2024 BUN/CRE 11.1 RATIO Normal 11-28 [facility] Comment on above: Performed By: #### L 501.4021, L500.2500, L100.0100 ####[facility] [address] [place], [address] Calcium [Mass/Vol] 9.1 mg/dL Normal 7.6-11.0 [facility] Comment on above: Performed By: #### L 501.4021, L500.2500, L100.0100 ####[facility] [address] [place], [address] Chloride [Moles/Vol] 102 mmol/L Normal 98-108 [facility] Comment on above: Performed By: #### L 501.4021, L500.2500, L100.0100 ####[facility] [address] [place], [address] CO2 [Moles/Vol] 21.5 mmol/L Normal 21.0-32.0 [facility] Comment on above: Performed By: #### L 501.4021, L500.2500, L100.0100 ####[facility] [address] [place], [address] Creatinine [Mass/Vol] 1.37 mg/dL High 0.70-1.20 [facility] Comment on above: Performed By: #### L 501.4021, L500.2500, L100.0100 ####[facility] [address] [place], [address] ECRCL 53.89 ml/min Normal 50-250 [facility] Comment on above: Performed By: #### L 501.4021, L500.2500, L100.0100 ####[facility] [address] [place], [address] GAP 15 Normal 5-15 [facility] Comment on above: Performed By: #### L 501.4021, L500.2500, L100.0100 ####[facility] [address] [place], [address] GFR/1.73 sq M.predicted among non-blacks MDRD (S/P/Bld) [Vol rate/Area] 53 mL/min/{1.73_m2} Low >60 [facility] Comment on above: Result Comment: mL/m in/1.73m2 CKD-EPI Creatinine Equation (2020) Performed By: #### L 501.4021, L500.2500, L100.0100 ####[facility] [address] [place], [address] Glucose [Mass/Vol] 176 mg/dL High 70-99 [facility] Comment on above: Performed By: #### L 501.4021, L500.2500, L100.0100 ####[facility] [address] [place], [address] Potassium [Moles/Vol] 4.1 mmol/L Normal 3.3-5.1 [facility] Comment on above: Performed By: #### L 501.4021, L500.2500, L100.0100 ####[facility] [address] [place], [address] Sodium [Moles/Vol] 138 mmol/L Normal 133-145 [facility] Comment on above: Performed By: #### L 501.4021, L500.2500, L100.0100 ####[facility] [address] [place], [address] Urea nitrogen [Mass/Vol] 15 mg/dL Normal 4-19 [facility] Comment on above: Performed By: #### L 501.4021, L500.2500, L100.0100 ####[facility] [address] [place], [address] Basophil percentageOrdered B y: Jeb Cuellar on 06-04-2024 Basophils/100 WBC (Bld) 0.6 % 0-1 [facility] CBC W/Diff, Automatedon 04-2 Absolute Lymph 4.04 X10 3/uL Normal 0.83-4.51 [facility] Comment on above: Performed By: #### L 501.4021, L500.2500, L100.0100 ####[facility] [address] [place], [address] Absolute Neut 4.6 X10 3/uL Normal 2.0-7.7 [facility] Comment on above: Performed By: #### L 501.4021, L500.2500, L100.0100 ####[facility] [address] [place], [address] Basophils/100 WBC (Bld) 0.6 % Normal 0-1 [facility] Comment on above: Performed By: #### L 501.4021, L500.2500, L100.0100 ####[facility] [address] [place], [address] Eosinophils/100 WBC (Bld) 2.4 % Normal 0-5 [facility] Comment on above: Performed By: #### L 501.4021, L500.2500, L100.0100 ####[facility] [address] [place], [address] Erythrocyte distribution width (RBC) [Ratio] 13.2 % Normal 11.6-14.6 [facility] Comment on above: Performed By: #### L 501.4021, L500.2500, L100.0100 ####[facility] [address] [place], [address] Hematocrit (Bld) [Volume fraction] 43.1 % Normal 40-54 [facility] Comment on above: Performed By: #### L 501.4021, L500.2500, L100.0100 ####[facility] [address] [place], [address] Hemoglobin (Bld) [Mass/Vol] 14.8 g/dL Normal 13.0-16.5 [facility] Comment on above: Performed By: #### L 501.4021, L500.2500, L100.0100 ####[facility] [address] [place], [address] IG% 0.300 Normal 0.0-0.9 [facility] Comment on above: Result Comment: IG% - Immature Granulocytes (promyelocytes, myelocytes andmetamyelocytes) > 1% indicates that a LEFT SHIFT is Present. Performed By: #### L 501.4021, L500.2500, L100.0100 ####[facility] [address] [place], [address] Lymphocytes/100 WBC (Bld) 40.9 % Normal 19-41 [facility] Comment on above: Performed By: #### L 501.4021, L500.2500, L100.0100 ####[facility] [address] [place], [address] MCH (RBC) [Entitic mass] 31.6 pg Normal 27.0-32.0 [facility] Comment on above: Performed By: #### L 501.4021, L500.2500, L100.0100 ####[facility] [address] [place], [address] MCHC (RBC) [Mass/Vol] 34.3 g/dL Normal 32-36 [facility] Comment on above: Performed By: #### L 501.4021, L500.2500, L100.0100 ####[facility] [address] [place], [address] MCV (RBC) [Entitic vol] 91.9 fL Normal 80-94 [facility] Comment on above: Performed By: #### L 501.4021, L500.2500, L100.0100 ####[facility] [address] [place], [address] Monocytes/100 WBC (Bld) 8.9 % Normal 0-10 [facility] Comment on above: Performed By: #### L 501.4021, L500.2500, L100.0100 ####[facility] [address] [place], [address] Neutrophils/100 WBC (Bld) 46.9 % Low 47-70 [facility] Comment on above: Performed By: #### L 501.4021, L500.2500, L100.0100 ####[facility] [address] [place], [address] Nucleated RBC (Bld) [#/Vol] 0 10*3/uL Normal 0-5 [facility] Comment on above: Performed By: #### L 501.4021, L500.2500, L100.0100 ####[facility] [address] [place], [address] Platelet mean volume (Bld) [Entitic vol] 10.5 fL Normal 6.2-12.0 [facility] Comment on above: Performed By: #### L 501.4021, L500.2500, L100.0100 ####[facility] [address] [place], [address] Platelets (Bld) [#/Vol] 186 10*3/uL Normal 150-450 [facility] Comment on above: Performed By: #### L 501.4021, L500.2500, L100.0100 ####[facility] [address] [place], [address] RBC (Bld) [#/Vol] 4.69 10*6/uL Normal 4.6-6.2 [facility] Comment on above: Performed By: #### L 501.4021, L500.2500, L100.0100 ####[facility] [address] [place], [address] RDW SD 44.1 fl High 35.1-43.9 [facility] Comment on above: Performed By: #### L 501.4021, L500.2500, L100.0100 ####[facility] [address] [place], [address] WBC (Bld) [#/Vol] 9.9 10*3/uL Normal 4.4-11.0 [facility] Comment on above: Performed By: #### L 501.4021, L500.2500, L100.0100 ####[facility] [address] [place], [address] Carbon dioxide, total [Moles /volume] in Central venous bloodOrdered By: Jeb Cuellar on 06-04-2024 CO2 [Moles/Vol] 21.5 mmol/L 21.0-32.0 [facility] Chest 1 View (Portable)on Chest 1 View (Portable) Normal [facility] Chloride assayOrdered By: Sweetie Cuellar on 06-04-2024 Chloride [Moles/Vol] 102 mmol/L 98-108 [facility] Emergency Department Summary on 06-04-2024 Emergency Department Summary Normal [facility] Eosinophil percentageOrdered By: Jeb Cuellar on 06-04-2024 Eosinophils/100 WBC (Bld) 2.4 % 0-5 [facility] Erythrocyte distribution wid th (RBC) [Ratio]Ordered By: Jeb Cuellar on 06-04-2024 Erythrocyte distribution width (RBC) [Entitic vol] 44.1 fL High 35.1-43.9 [facility] Erythrocyte distribution wid th ratioOrdered By: Jeb Cuellar on 06-04-2024 Erythrocyte distribution width (RBC) [Ratio] 13.2 % 11.6-14.6 [facility] Erythrocyte distribution wid th standard deviationOrdered By: Jeb Cuellar on 06-04-2024 Erythrocyte distribution width (RBC) [Ratio] 44.1 fl High 35.1-43.9 [facility] Estimation of creatinine luz maria aranceOrdered By: Jeb Cuellar on 06-04-2024 Estimated Creatinine Clearance Calc 53.89 ml/min 50-250 [facility] GFR/1.73 sq M.predicted joey g non-blacks MDRD (S/P/Bld) [Vol rate/Area]Ordered By: Jeb Cuellar on 06-04-2024 Estimated GFR (MDRD) Non-Af Amer 53 Low >60 [facility] Comment on above: mL/min/1.73m2 CKD-EP I Creatinine Equation (2020) Glomerular filtration rate ( GFR) estimation/1.73 sq m using serum, plasma, or whole bOrdered By: Jeb Cuellar on 06-04-2024 GFR/1.73 sq M.predicted among non-blacks MDRD (S/P/Bld) [Vol rate/Area] 53 mL/min/{1.73_m2} Low >60 [facility] Comment on above: mL/min/1.73m2 CKD-EP I Creatinine Equation (2020) Hematocrit Auto (Bld) [Volum e fraction]Ordered By: Jeb Cuellar on 06-04-2024 Hematocrit (Bld) [Volume fraction] 43.1 % 40-54 [facility] Hemoglobin measurementOrdere d By: Jeb Cuellar on 06-04-2024 Hemoglobin (Bld) [Mass/Vol] 14.8 g/dL 13.0-16.5 [facility] Immature granulocytes/100 WB C Auto (Bld)Ordered By: Jeb Cuellar on 06-04-2024 Immature granulocytes/100 WBC (Bld) 0.300 % 0.0-0.9 [facility] Comment on above: IG% - Immature Granu locytes (promyelocytes, myelocytes and metamyelocytes) > 1% indicates that a LEFT SHIFT is Present. International normalized rat io (INR) calculationOrdered By: Jeb Cuellar on 06-04-2024 INR Coag (Bld) [Relative time] 1.4 {INR} [facility] L499.0042on 06-04-2024 Trop T High Sen 14 ng/L Normal <=22 [facility] Comment on above: Performed By: #### L 499.0042 ####[facility] [address] [place], [address] L499.0043on 06-04-2024 Trop T High Sen Normal <=22 [facility] Comment on above: Result Comment: Canc elled via OM: Order cancelled - Patient discharged Performed By: #### L 499.0043 ####[facility] [address] [place], [address] L501.4021on 06-04-2024 Trop T High Sen 12 ng/L Normal <=22 [facility] Comment on above: Performed By: #### L 501.4021, L500.2500, L100.0100 ####[facility] [address] [place], [address] Lymphocytes Auto (Unsp spec) [#/Vol]Ordered By: Jebnelly Cuellar on 06-04-2024 Lymphocytes (Bld) [#/Vol] 4.04 10*3/uL 0.83-4.51 [facility] Lymphocytes/100 WBC Auto (Un sp spec)Ordered By: Jeb Cuellar on 06-04-2024 Lymphocytes/100 WBC (Bld) 40.9 % 19-41 [facility] MCV (mean corpuscular volume ) determinationOrdered By: Jeb Cuellar on 06-04-2024 MCV (RBC) [Entitic vol] 91.9 fL 80-94 [facility] Mean corpuscular hemoglobin (MCH) determinationOrdered By: Jeb Cuellar on 06-04-2024 MCH (RBC) [Entitic mass] 31.6 pg 27.0-32.0 [facility] Mean corpuscular hemoglobin concentration (MCHC) determinationOrdered By: Jeb Cuellar on 06-04-2024 MCHC (RBC) [Mass/Vol] 34.3 g/dL 32-36 [facility] Mean platelet volume determi nationOrdered By: Jeb Cuellar on 06-04-2024 Platelet mean volume (Bld) [Entitic vol] 10.5 fL 6.2-12.0 [facility] Monocyte percentageOrdered B y: Jeb Cuellar on 06-04-2024 Monocytes/100 WBC (Bld) 8.9 % 0-10 [facility] Neutrophil percentageOrdered By: Jeb Cuellar on 06-04-2024 Neutrophils/100 WBC (Bld) 46.9 % Low 47-70 [facility] Nucleated red blood cell per centageOrdered By: Jeb Cuellar on 06-04-2024 Nucleated RBC/100 WBC (Bld) [Ratio] 0 % 0-5 [facility] Platelet countOrdered By: Sweetie Cuellar on 06-04-2024 Platelets (Bld) [#/Vol] 186 10*3/uL 150-450 [facility] Potassium (Unsp spec) [Mass/ Vol]Ordered By: Jeb Cuellar on 06-04-2024 Potassium [Moles/Vol] 4.1 mmol/L 3.3-5.1 [facility] Potassium measurement (mass/ volume)Ordered By: Jeb Cuellar on 06-04-2024 Potassium (Unsp spec) [Mass/Vol] 4.1 mmol/L 3.3-5.1 [facility] Prothrombin Time w/INRon INR Coag (PPP) [Relative time] 1.4 {INR} Normal [facility] Comment on above: Performed By: #### L 300.3900 ####[facility] [address] [place], [place], [id number]) PT Coag (PPP) [Time] 17.3 s High 11.7-14.9 [facility] Comment on above: Performed By: #### L 300.3900 ####[facility] [address] [place], [address] Prothrombin timeOrdered By: Jeb Cuellar on 06-04-2024 PT Coag (PPP) [Time] 17.3 s High 11.7-14.9 [facility] RBC Auto (Bld) [#/Vol]Ordere d By: Jeb Cuellar on 06-04-2024 RBC (Bld) [#/Vol] 4.69 10*6/uL 4.6-6.2 [facility] Serum creatinine measurement (mass/volume)Ordered By: Jeb Cuellar on 06-04-2024 Creatinine [Mass/Vol] 1.37 mg/dL High 0.70-1.20 [facility] Serum glucose measurement (m ass/volume)Ordered By: Jeb Cuellar on 06-04-2024 Glucose [Mass/Vol] 176 mg/dL High 70-99 [facility] Serum or plasma calcium musa urement (mass/volume)Ordered By: Jeb Cuellar on 06-04-2024 Calcium [Mass/Vol] 9.1 mg/dL 7.6-11.0 [facility] Serum or plasma urea nitroge n measurement (mass/volume)Ordered By: Jeb Cuellar on 06-04-2024 Urea nitrogen [Mass/Vol] 15 mg/dL 4- [facility] Sodium levelOrdered By: Rodney Cuellar on 06-04-2024 Sodium [Moles/Vol] 138 mmol/L 133-145 [facility] Troponin T.cardiac High sens itivity method [Mass/Vol]Ordered By: Jeb Cuellar on 06-04-2024 Troponin T High Sensitivity 2 Hour 14 ng/L <22 [facility] Troponin T High Sensitivity 12 ng/L <22 [facility] Troponin T.cardiac [Mass/vol ume] in Serum or Plasma by High sensitivity methodOrdered By: Jeb Cuellar on 06-04-2024 Troponin T.cardiac High sensitivity method [Mass/Vol] 14 ng/L <22 [facility] Troponin T.cardiac High sensitivity method [Mass/Vol] 12 ng/L <22 [facility] White blood cell (WBC) count Ordered By: Jeb Cuellar on 06-04-2024 WBC (Bld) [#/Vol] 9.9 10*3/uL 4.4-11.0 [facility] No Panel Informationon 05-27 INR International Normalized Ratio 2.3 [facility] No Panel Informationon 05-13 INR International Normalized Ratio 2.1 [facility] No Panel Informationon 04-29 INR International Normalized Ratio 1.8 [facility] Anion gap in Serum or Plasma Ordered By: Luis Hay on 04-28-2024 Anion gap [Moles/Vol] 14 mmol/L 5- [facility] BUN/creatinine ratioOrdered By: Luis Hay on 04-28-2024 Urea nitrogen/Creatinine [Mass ratio] 10.3 mg/mg 10- [facility] Basic Metabolic Profile (BMP )on 04-28-2024 BUN/CRE 10.3 RATIO Normal 10-20 [facility] Comment on above: Performed By: #### L 500.2500 ####[facility] [address] [place], [address] Calcium [Mass/Vol] 9.6 mg/dL Normal 7.6-11.0 [facility] Comment on above: Performed By: #### L 500.2500 ####[facility] [address] [place], [address] Chloride [Moles/Vol] 101 mmol/L Normal 98-108 [facility] Comment on above: Performed By: #### L 500.2500 ####[facility] [address] [place], [address] CO2 [Moles/Vol] 24.4 mmol/L Normal 21.0-32.0 [facility] Comment on above: Performed By: #### L 500.2500 ####[facility] [address] [place], [address] Creatinine [Mass/Vol] 1.28 mg/dL High 0.70-1.20 [facility] Comment on above: Performed By: #### L 500.2500 ####[facility] [address] [place], [address] GAP 14 Normal 5-15 [facility] Comment on above: Performed By: #### L 500.2500 ####[facility] [address] [place], [address] GFR/1.73 sq M.predicted among non-blacks MDRD (S/P/Bld) [Vol rate/Area] 58 mL/min/{1.73_m2} Low >60 [facility] Comment on above: Result Comment: mL/m in/1.73m2 CKD-EPI Creatinine Equation (2020) Performed By: #### L 500.2500 ####[facility] [address] [place], [address] Glucose [Mass/Vol] 160 mg/dL High 70-99 [facility] Comment on above: Performed By: #### L 500.2500 ####[facility] [address] [place], [address] Potassium [Moles/Vol] 4.9 mmol/L Normal 3.3-5.1 [facility] Comment on above: Performed By: #### L 500.2500 ####[facility] [address] [place], [address] Sodium [Moles/Vol] 139 mmol/L Normal 133-145 [facility] Comment on above: Performed By: #### L 500.2500 ####[facility] [address] [place], [address] Urea nitrogen [Mass/Vol] 13 mg/dL Normal 4-19 [facility] Comment on above: Performed By: #### L 500.2500 ####[facility] [address] [place], [address] Carbon dioxide, total [Moles /volume] in Central venous bloodOrdered By: Luis Hay on 04-28-2024 CO2 [Moles/Vol] 24.4 mmol/L 21.0-32.0 [facility] Chloride assayOrdered By: Royce Hay on 04-28-2024 Chloride [Moles/Vol] 101 mmol/L 98-108 [facility] GFR/1.73 sq M.predicted joey g non-blacks MDRD (S/P/Bld) [Vol rate/Area]Ordered By: Luis Hay on 04-28-2024 Estimated GFR (MDRD) Non-Af Amer 58 Low >60 [facility] Comment on above: mL/min/1.73m2 CKD-EP I Creatinine Equation (2020) Glomerular filtration rate ( GFR) estimation/1.73 sq m using serum, plasma, or whole bOrdered By: Luis Hay on 04-28-2024 GFR/1.73 sq M.predicted among non-blacks MDRD (S/P/Bld) [Vol rate/Area] 58 mL/min/{1.73_m2} Low >60 [facility] Comment on above: mL/min/1.73m2 CKD-EP I Creatinine Equation (2020) Internal Medicine Office Vis roxann 04-28-2024 Internal Medicine Office Visit Normal [facility] Laboratory - Hematology and Cell countsOrdered By: Luis Hay on 04-28-2024 HbA1c (Bld) [Mass fraction] 7.0 % High 4.2-6.3 [facility] Potassium (Unsp spec) [Mass/ Vol]Ordered By: Luis Hay on 04-28-2024 Potassium [Moles/Vol] 4.9 mmol/L 3.3-5.1 [facility] Potassium measurement (mass/ volume)Ordered By: Luis Hay on 04-28-2024 Potassium (Unsp spec) [Mass/Vol] 4.9 mmol/L 3.3-5.1 [facility] Serum creatinine measurement (mass/volume)Ordered By: Luis Hay on 04-28-2024 Creatinine [Mass/Vol] 1.28 mg/dL High 0.70-1.20 [facility] Serum glucose measurement (m ass/volume)Ordered By: Luis Hay on 04-28-2024 Glucose [Mass/Vol] 160 mg/dL High 70-99 [facility] Serum or plasma calcium musa urement (mass/volume)Ordered By: Luis Hay on 04-28-2024 Calcium [Mass/Vol] 9.6 mg/dL 7.6-11.0 [facility] Serum or plasma urea nitroge n measurement (mass/volume)Ordered By: Luis Hay on 04-28-2024 Urea nitrogen [Mass/Vol] 13 mg/dL 4-19 [facility] Sodium levelOrdered By: Tiana Hay on 04-28-2024 Sodium [Moles/Vol] 139 mmol/L 133-145 [facility] No Panel Informationon 04-08 INR International Normalized Ratio 3.0 [facility] PSA,Total - Annual Screenon 03-31-2024 PSA,TOT SCREEN 0.40 ng/mL Normal 0.00-4.00 [facility] Comment on above: Result Comment: This test was performed using the TPSA assay method for the[employer] chemistry system. Values obtained with differentassay methods cannot be used interchangably.When changing PSA assays in the course of monitoring apatient, additional sequential testing should be carriedout to confirm baseline values. Performed By: #### L 501.9910 ####[facility] [address], [address] Screening prostate specific antigen (PSA) measurementOrdered By: Tony Campos on 03-31-2024 Prostate Specific Antigen Screen 0.40 ng/mL 0.00-4.00 [facility] Comment on above: This test was perfor med using the TPSA assay method for the[employer] chemistry system. Values obtained with differentassay methods cannot be used interchangably.When changing PSA assays in the course of monitoring apatient, additional sequential testing should be carriedout to confirm baseline values. No Panel Informationon 03-20 INR International Normalized Ratio 1.9 [facility] No Panel Informationon 03-11 INR International Normalized Ratio 1.0 [facility] Microalb:Creat Ratio,Random URon 02-17-2024 Creatinine [Mass/Vol] 49.60 mg/dL Normal NO RAN GE EST. [facility] Comment on above: Performed By: #### L 502.0250 ####[facility] [address] [place], [place], [id number] MALB:CRE 13.5 mg/g CRE Normal <30 mg/g CRE [facility] Comment on above: Performed By: #### L 502.0250 ####[facility] [address] [place], [address] MICROALBUMIN,UR 6.7 mg/L Normal NO RANGE EST. [facility] Comment on above: Performed By: #### L 502.0250 ####[facility] [address] [place], [address] Random urine microalbumin me asurementOrdered By: Luis Hay on 02-17-2024 Urine Random Microalbumin 6.7 mg/L NO RANGE EST. [facility] Urine albumin/creatinine rat io for detection of microalbuminuriaOrdered By: Luis Hay on 02-17-2024 Urine Microalbumin/Creatinine Ratio 13.5 mg/g CRE <30 [facility] Urine creatinine measurement (mass/volume)Ordered By: Luis Hay on 02-17-2024 Creatinine (U) [Mass/Vol] 49.60 mg/dL NO RANGE EST. [facility] No Panel Informationon 02-04 INR International Normalized Ratio 2.7 [facility] Microalb:Creat Ratio,Random URon 02-01-2024 MALB:CRE Normal <30 mg/g CRE [facility] Comment on above: Result Comment: NO S PECIMEN REC;D-EMAIL SENT Performed By: #### L 502.0250 ####[facility] [address] [place], [address] MICROALBUMIN,UR Normal NO RANGE EST. [facility] Comment on above: Result Comment: NO S PECIMEN REC;D-EMAIL SENT Performed By: #### L 502.0250 ####[facility] [address] [place], [place], [id number] UR CREAT Normal NO RANGE EST. [facility] Comment on above: Result Comment: NO S PECIMEN REC;D-EMAIL SENT Performed By: #### L 502.0250 ####[facility] [address] [place], [place], [id number] Absolute neutrophil countOrd ered By: Luis Hay on 01-27-2024 Neutrophils (Bld) [#/Vol] 6.1 10*3/uL 2.0-7.7 [facility] Albumin to globulin ratioOrd ered By: Luis Hay on 01-27-2024 Albumin/Globulin [Mass ratio] 0.9 {ratio} 0.9-2.4 [facility] Basophil percentageOrdered B y: Lius Hay on 01-27-2024 Basophils/100 WBC (Bld) 0.6 % 0-1 [facility] Bilirubin, totalOrdered By: Luis Hay on 01-27-2024 Bilirubin [Mass/Vol] 1.50 mg/dL High 0.20-1.00 [facility] Comment on above: For patients on eltr ombopag therapy, use of Dimension [place] TBIL is not recommended. Blood urea nitrogen (BUN)/cr eatinine ratioOrdered By: Luis Hay on 01-27-2024 Urea nitrogen/Creatinine [Mass ratio] 9.7 mg/mg Low 10-20 [facility] CBC W/Diff, Automatedon 01-09 Absolute Lymph 2.93 X10 3/uL Normal 0.83-4.51 [facility] Comment on above: Performed By: #### L 100.0100, L501.9910, L500.4050 ####[facility] [address] [place], [address] Absolute Neut 6.1 X10 3/uL Normal 2.0-7.7 [facility] Comment on above: Performed By: #### L 100.0100, L501.9910, L500.4050 ####[facility] [address] [place], [address] Basophils/100 WBC (Bld) 0.6 % Normal 0-1 [facility] Comment on above: Performed By: #### L 100.0100, L501.9910, L500.4050 ####[facility] [address] [place], [address] Eosinophils/100 WBC (Bld) 3.1 % Normal 0-5 [facility] Comment on above: Performed By: #### L 100.0100, L501.9910, L500.4050 ####[facility] [address] [place], [address] Erythrocyte distribution width (RBC) [Ratio] 13.7 % Normal 11.6-14.6 [facility] Comment on above: Performed By: #### L 100.0100, L501.9910, L500.4050 ####[facility] [address] [place], [address] Hematocrit (Bld) [Volume fraction] 45.6 % Normal 40-54 [facility] Comment on above: Performed By: #### L 100.0100, L501.9910, L500.4050 ####[facility] [address] [place], [address] Hemoglobin (Bld) [Mass/Vol] 14.9 g/dL Normal 13.0-16.5 [facility] Comment on above: Performed By: #### L 100.0100, L501.9910, L500.4050 ####[facility] [address] [place], [address] IG% 0.300 Normal 0.0-0.9 [facility] Comment on above: Result Comment: IG% - Immature Granulocytes (promyelocytes, myelocytes andmetamyelocytes) > 1% indicates that a LEFT SHIFT is Present. Performed By: #### L 100.0100, L501.9910, L500.4050 ####[facility] [address] [place], [address] Lymphocytes/100 WBC (Bld) 28.1 % Normal 19-41 [facility] Comment on above: Performed By: #### L 100.0100, L501.9910, L500.4050 ####[facility] [address] [place], [address] MCH (RBC) [Entitic mass] 30.7 pg Normal 27.0-32.0 [facility] Comment on above: Performed By: #### L 100.0100, L501.9910, L500.4050 ####[facility] [address] [place], [address] MCHC (RBC) [Mass/Vol] 32.7 g/dL Normal 32-36 [facility] Comment on above: Performed By: #### L 100.0100, L501.9910, L500.4050 ####[facility] [address] [place], [address] MCV (RBC) [Entitic vol] 94.0 fL Normal 80-94 [facility] Comment on above: Performed By: #### L 100.0100, L501.9910, L500.4050 ####[facility] [address] [place], [address] Monocytes/100 WBC (Bld) 9.4 % Normal 0-10 [facility] Comment on above: Performed By: #### L 100.0100, L501.9910, L500.4050 ####[facility] [address] [place], [address] Neutrophils/100 WBC (Bld) 58.5 % Normal 47-70 [facility] Comment on above: Performed By: #### L 100.0100, L501.9910, L500.4050 ####[facility] [address] [place], [address] Nucleated RBC (Bld) [#/Vol] 0 10*3/uL Normal 0-5 [facility] Comment on above: Performed By: #### L 100.0100, L501.9910, L500.4050 ####[facility] [address] [place], [address] Platelet mean volume (Bld) [Entitic vol] 10.9 fL Normal 6.2-12.0 [facility] Comment on above: Performed By: #### L 100.0100, L501.9910, L500.4050 ####[facility] [address] [place], [address] Platelets (Bld) [#/Vol] 214 10*3/uL Normal 150-450 [facility] Comment on above: Performed By: #### L 100.0100, L501.9910, L500.4050 ####[facility] [address] [place], [address] RBC (Bld) [#/Vol] 4.85 10*6/uL Normal 4.6-6.2 [facility] Comment on above: Performed By: #### L 100.0100, L501.9910, L500.4050 ####[facility] [address] [place], [address] RDW SD 47.3 fl High 35.1-43.9 [facility] Comment on above: Performed By: #### L 100.0100, L501.9910, L500.4050 ####[facility] [address] [place], [address] WBC (Bld) [#/Vol] 10.4 10*3/uL Normal 4.4-11.0 [facility] Comment on above: Performed By: #### L 100.0100, L501.9910, L500.4050 ####[facility] [address] [place], [address] Carbon dioxide measurementOr dered By: Luis Hay on 01-27-2024 CO2 [Moles/Vol] 28.0 mmol/L 21.0-32.0 [facility] Chloride measurementOrdered By: Luis Hay on 01-27-2024 Chloride [Moles/Vol] 101 mmol/L 98-107 [facility] Comprehensive Metabolic Prof ilon 01-27-2024 Albumin [Mass/Vol] 3.7 g/dL Normal 3.2-5.0 [facility] Comment on above: Performed By: #### L 100.0100, L501.9910, L500.4050 ####[facility] [address] [place], [address] Albumin/Globulin [Mass ratio] 0.9 {ratio} Normal 0.9-2.4 [facility] Comment on above: Performed By: #### L 100.0100, L501.9910, L500.4050 ####[facility] [address] [place], [address] ALK P 69 U/L Normal 45-117 [facility] Comment on above: Performed By: #### L 100.0100, L501.9910, L500.4050 ####[facility] [address] [place], [address] ALT [Catalytic activity/Vol] 55 U/L Normal 16-61 [facility] Comment on above: Performed By: #### L 100.0100, L501.9910, L500.4050 ####[facility] [address] [place], [address] AST [Catalytic activity/Vol] 42 U/L High 15-37 [facility] Comment on above: Performed By: #### L 100.0100, L501.9910, L500.4050 ####[facility] [address] [place], [address] Bilirubin [Mass/Vol] 1.50 mg/dL High 0.20-1.00 [facility] Comment on above: Result Comment: For patients on eltrombopag therapy, use of Dimension [place] TBIL is not recommended. Performed By: #### L 100.0100, L501.9910, L500.4050 ####[facility] [address] [place], [address] BUN/CRE 9.7 RATIO Low 10-20 [facility] Comment on above: Performed By: #### L 100.0100, L501.9910, L500.4050 ####[facility] [address] [place], [address] CA,Total 9.7 mg/dL Normal 8.5-10.1 [facility] Comment on above: Performed By: #### L 100.0100, L501.9910, L500.4050 ####[facility] [address] [place], [address] Chloride [Moles/Vol] 101 mmol/L Normal 98-107 [facility] Comment on above: Performed By: #### L 100.0100, L501.9910, L500.4050 ####[facility] [address] [place], [address] CO2 [Moles/Vol] 28.0 mmol/L Normal 21.0-32.0 [facility] Comment on above: Performed By: #### L 100.0100, L501.9910, L500.4050 ####[facility] [address] [place], [address] Creatinine [Mass/Vol] 1.45 mg/dL High 0.70-1.30 [facility] Comment on above: Result Comment: The validity of the calculated GFR GFRAA in patients over70 years has not been determined. Clinical correlation isessential. Performed By: #### L 100.0100, L501.9910, L500.4050 ####[facility] [address] [place], [address] EST GFR - AA 61 mL/min Normal >60 [facility] Comment on above: Result Comment: Afri can [place] GFR Calc Performed By: #### L 100.0100, L501.9910, L500.4050 ####[facility] [address] [place], [address] GAP 5 Normal 5-15 [facility] Comment on above: Performed By: #### L 100.0100, L501.9910, L500.4050 ####[facility] [address] [place], [address] GFR/1.73 sq M.predicted among non-blacks MDRD (S/P/Bld) [Vol rate/Area] 50 mL/min/{1.73_m2} Low >60 [facility] Comment on above: Result Comment: Non- GFR Calc Performed By: #### L 100.0100, L501.9910, L500.4050 ####[facility] [address] [place], [address] Globulin (S) [Mass/Vol] 4.2 g/dL Normal 2.2-4.2 [facility] Comment on above: Performed By: #### L 100.0100, L501.9910, L500.4050 ####[facility] [address] [place], [address] Glucose [Mass/Vol] 179 mg/dL High 74-106 [facility] Comment on above: Result Comment: Fast ing Glucose result greater than or equal to 126 mg/dLsuggests DIABETES MELLITUS per A.D.A. criteria. Performed By: #### L 100.0100, L501.9910, L500.4050 ####[facility] [address] [place], [address] Potassium [Moles/Vol] 4.6 mmol/L Normal 3.5-5.1 [facility] Comment on above: Performed By: #### L 100.0100, L501.9910, L500.4050 ####[facility] [address] [place], [address] Sodium [Moles/Vol] 134 mmol/L Low 136-145 [facility] Comment on above: Performed By: #### L 100.0100, L501.9910, L500.4050 ####[facility] [address] [place], [address] T PROT 7.9 g/dL Normal 6.4-8.2 [facility] Comment on above: Performed By: #### L 100.0100, L501.9910, L500.4050 ####[facility] [address] [place], [address] Urea nitrogen [Mass/Vol] 14 mg/dL Normal 7-18 [facility] Comment on above: Performed By: #### L 100.0100, L501.9910, L500.4050 ####[facility] [address] [place], [address] Eosinophil percentageOrdered By: Luis Hay on 01-27-2024 Eosinophils/100 WBC (Bld) 3.1 % 0-5 [facility] Erythrocyte distribution wid th ratioOrdered By: Roycesolange Hay on 01-27-2024 Erythrocyte distribution width (RBC) [Ratio] 13.7 % 11.6-14.6 [facility] Erythrocyte distribution wid th standard deviationOrdered By: adalgisascott air force baseingrid Del Rosariodarelljeanne on 01-27-2024 Erythrocyte distribution width (RBC) [Entitic vol] 47.3 fL High 35.1-43.9 [facility] Estimated glomerular filtrat ion rate (GFR) AmericanOrdered By: Luis Hay on 01-27-2024 Estimated GFR (MDRD) Amer 61 mL/min >60 [facility] Comment on above: GFR Calc Glomerular filtration rate ( GFR) estimationOrdered By: Luis Hay on 01-27-2024 Estimated GFR (MDRD) Non-Af Amer 50 mL/min Low >60 [facility] Comment on above: Non- GFR Calc Glucose measurementOrdered B y: Luis Hay on 01-27-2024 Glucose [Mass/Vol] 179 mg/dL High 74-106 [facility] Comment on above: Fasting Glucose resu lt greater than or equal to 126 mg/dL suggests DIABETES MELLITUS per A.D.A. criteria. Hematocrit Auto (Bld) [Volum e fraction]Ordered By: Luis Hay on 01-27-2024 Hematocrit (Bld) [Volume fraction] 45.6 % 40-54 [facility] Hemoglobin measurementOrdere d By: Luis Hay on 01-27-2024 Hemoglobin (Bld) [Mass/Vol] 14.9 g/dL 13.0-16.5 [facility] Immature granulocytes/100 WB C Auto (Bld)Ordered By: Luis Hay on 01-27-2024 Immature granulocytes/100 WBC (Bld) 0.300 % 0.0-0.9 [facility] Comment on above: IG% - Immature Granu locytes (promyelocytes, myelocytes and metamyelocytes) > 1% indicates that a LEFT SHIFT is Present. Internal Medicine Office Vis iton 01-27-2024 Internal Medicine Office Visit Normal [facility] - Chemistry and C hemistry - challengeOrdered By: Luis Hay on 01-27-2024 AST [Catalytic activity/Vol] 42 U/L High 15-37 [facility] - Hematology and Cell countson 01-27-2024 HbA1c (Bld) [Mass fraction] 6.6 % High 4.2-6.3 [facility] Lymphocytes Auto (Unsp spec) [#/Vol]Ordered By: Luis Hay on 01-27-2024 Lymphocytes (Bld) [#/Vol] 2.93 10*3/uL 0.83-4.51 [facility] Lymphocytes/100 WBC Auto (Un sp spec)Ordered By: Luis Hay on 01-27-2024 Lymphocytes/100 WBC (Bld) 28.1 % 19-41 [facility] MCV (mean corpuscular volume ) determinationOrdered By: Luis Hay on 01-27-2024 MCV (RBC) [Entitic vol] 94.0 fL 80-94 [facility] Mean corpuscular hemoglobin (MCH) determinationOrdered By: Luis Hay on 01-27-2024 MCH (RBC) [Entitic mass] 30.7 pg 27.0-32.0 [facility] Mean corpuscular hemoglobin concentration (MCHC) determinationOrdered By: Luis Hay on 01-27-2024 MCHC (RBC) [Mass/Vol] 32.7 g/dL 32-36 [facility] Mean platelet volume determi nationOrdered By: Luis Del Rosariodarelljeanne on 01-27-2024 Platelet mean volume (Bld) [Entitic vol] 10.9 fL 6.2-12.0 [facility] Monocyte percentageOrdered B y: Xiaoingrid Del Rosariodarelljeanne on 01-27-2024 Monocytes/100 WBC (Bld) 9.4 % 0-10 [facility] Neutrophil percentageOrdered By: Roycesolange Del Rosariodarelljeanne on 01-27-2024 Neutrophils/100 WBC (Bld) 58.5 % 47-70 [facility] Nucleated red blood cell per centageOrdered By: Luis Del Rosariodarelljeanne on 01-27-2024 Nucleated RBC/100 WBC (Bld) [Ratio] 0 % 0-5 [facility] PSA,Total - Annual Screenon 01-27-2024 PSA,TOT SCREEN 0.63 ng/mL Normal 0.00-4.00 [facility] Comment on above: Result Comment: This test was performed using the TPSA assay method for the[facility] chemistry system. Values obtained with differentassay methods cannot be used interchangably.When changing PSA assays in the course of monitoring apatient, additional sequential testing should be carriedout to confirm baseline values. Performed By: #### L 100.0100, L501.9910, L500.4050 ####[facility] [address] [place], [address] Platelet countOrdered By: Royce Hay on 01-27-2024 Platelets (Bld) [#/Vol] 214 10*3/uL 150-450 [facility] Potassium measurementOrdered By: Luis Hay on 01-27-2024 Potassium [Moles/Vol] 4.6 mmol/L 3.5-5.1 [facility] RBC Auto (Bld) [#/Vol]Ordere d By: Luis Hay on 01-27-2024 RBC (Bld) [#/Vol] 4.85 10*6/uL 4.6-6.2 [facility] Screening prostate specific antigen (PSA) measurementOrdered By: Luis Hay on 01-27-2024 Prostate Specific Antigen Screen 0.63 ng/mL 0.00-4.00 [facility] Comment on above: This test was perfor med using the TPSA assay method for the[employer] chemistry system. Values obtained with differentassay methods cannot be used interchangably.When changing PSA assays in the course of monitoring apatient, additional sequential testing should be carriedout to confirm baseline values. Serum anion gap measurementO rdered By: Luis Hay on 01-27-2024 Anion gap [Moles/Vol] 5 mmol/L 5-15 [facility] Serum globulin measurementOr dered By: Luis Hay on 01-27-2024 Globulin (S) [Mass/Vol] 4.2 g/dL 2.2-4.2 [facility] Serum or plasma alanine hernández otransferase (ALT) measurementOrdered By: Luis Hay on 01-27-2024 ALT [Catalytic activity/Vol] 55 U/L 16-61 [facility] Serum or plasma albumin musa urement (mass/volume)Ordered By: Luis Hay on 01-27-2024 Albumin [Mass/Vol] 3.7 g/dL 3.2-5.0 [facility] Serum or plasma alkaline matthew sphatase measurementOrdered By: Luis Hay on 01-27-2024 ALP [Catalytic activity/Vol] 69 U/L 45-117 [facility] Serum or plasma calcium musa urement (mass/volume)Ordered By: Luis Hay on 01-27-2024 Calcium [Mass/Vol] 9.7 mg/dL 8.5-10.1 [facility] Serum or plasma creatinine m easurement (mass/volume)Ordered By: Luis Hay on 01-27-2024 Creatinine [Mass/Vol] 1.45 mg/dL High 0.70-1.30 [facility] Comment on above: The validity of the calculated GFR & GFRAA in patients over 70 years has not been determined. Clinical correlation is essential. Serum or plasma urea nitroge n measurement (mass/volume)Ordered By: Luis Hay on 01-27-2024 Urea nitrogen [Mass/Vol] 14 mg/dL - [facility] Sodium levelOrdered By: Tiana Hay on 01-27-2024 Sodium [Moles/Vol] 134 mmol/L Low 136-145 [facility] Total proteinOrdered By: Markell Hay on 01-27-2024 Protein [Mass/Vol] 7.9 g/dL 6.4-8.2 [facility] White blood cell (WBC) count Ordered By: Tianascott air force baseingrid Hay on 01-27-2024 WBC (Bld) [#/Vol] 10.4 10*3/uL 4.4-11.0 [facility] No Panel Informationon 01-24 INR International Normalized Ratio 2.1 [facility] No Panel Informationon 01-07 INR International Normalized Ratio 2.7 [facility] Urgent Care Visit Reporton 1 03-05-2023 Urgent Care Visit Report Normal [facility] Cardiology Visit Reporton Cardiology Visit Report Normal [facility] Internal Medicine Office Vis iton 10-21-2023 Internal Medicine Office Visit Normal [facility] Basic Metabolic Profile (BMP )on 10-07-2023 BUN Normal 08-26 [facility] Comment on above: Result Comment: Canc elled via OM: Order cancelled - Patient discharged Performed By: #### L 100.0100, L500.2500 ####[facility] [address] [place], [address] BUN/CRE Normal - [facility] Comment on above: Result Comment: Canc elled via OM: Order cancelled - Patient discharged Performed By: #### L 100.0100, L500.2500 ####[facility] [address] [place], [address] CA,Total Normal 8.5-10.1 [facility] Comment on above: Result Comment: Canc elled via OM: Order cancelled - Patient discharged Performed By: #### L 100.0100, L500.2500 ####[facility] [address] [place], [address] CL Normal 98-107 [facility] Comment on above: Result Comment: Canc elled via OM: Order cancelled - Patient discharged Performed By: #### L 100.0100, L500.2500 ####[facility] [address] [place], [address] CO2 Normal 21.0-32.0 [facility] Comment on above: Result Comment: Canc elled via OM: Order cancelled - Patient discharged Performed By: #### L 100.0100, L500.2500 ####[facility] [address] [place], [address] CREAT,SERUM Normal 0.70-1.30 [facility] Comment on above: Result Comment: Canc elled via OM: Order cancelled - Patient discharged Performed By: #### L 100.0100, L500.2500 ####[facility] [address] [place], [address] EST GFR Normal >60 [facility] Comment on above: Result Comment: Canc elled via OM: Order cancelled - Patient discharged Performed By: #### L 100.0100, L500.2500 ####[facility] [address] [place], [address] EST GFR - AA Normal >60 [facility] Comment on above: Result Comment: Canc elled via OM: Order cancelled - Patient discharged Performed By: #### L 100.0100, L500.2500 ####[facility] [address] [place], [address] GAP Normal 5-15 [facility] Comment on above: Result Comment: Canc elled via OM: Order cancelled - Patient discharged Performed By: #### L 100.0100, L500.2500 ####[facility] [address] [place], [address] GLU Normal 74-106 [facility] Comment on above: Result Comment: Canc elled via OM: Order cancelled - Patient discharged Performed By: #### L 100.0100, L500.2500 ####[facility] [address] [place], [address] Potassium Normal 3.5-5.1 [facility] Comment on above: Result Comment: Canc elled via OM: Order cancelled - Patient discharged Performed By: #### L 100.0100, L500.2500 ####[facility] [address] [place], [address] Basic Metabolic Profile (BMP) Normal 136-145 [facility] Comment on above: Result Comment: Canc elled via OM: Order cancelled - Patient discharged Performed By: #### L 100.0100, L500.2500 ####[facility] [address] [place], [address] CBC W/Diff, Automatedon 09-10 Absolute Neut Normal 2.0-7.7 [facility] Comment on above: Result Comment: Canc elled via OM: Order cancelled - Patient discharged Performed By: #### L 100.0100, L500.2500 ####[facility] [address] [place], [address] HCT Normal 40-54 [facility] Comment on above: Result Comment: Canc elled via OM: Order cancelled - Patient discharged Performed By: #### L 100.0100, L500.2500 ####[facility] [address] [place], [address] HGB Normal 13.0-16.5 [facility] Comment on above: Result Comment: Canc elled via OM: Order cancelled - Patient discharged Performed By: #### L 100.0100, L500.2500 ####[facility] [address] [place], [address] MCH Normal 27.0-32.0 [facility] Comment on above: Result Comment: Canc elled via OM: Order cancelled - Patient discharged Performed By: #### L 100.0100, L500.2500 ####[facility] [address] [place], [address] MCHC Normal 32-36 [facility] Comment on above: Result Comment: Canc elled via OM: Order cancelled - Patient discharged Performed By: #### L 100.0100, L500.2500 ####[facility] [address] [place], [address] MCV Normal 80-94 [facility] Comment on above: Result Comment: Canc elled via OM: Order cancelled - Patient discharged Performed By: #### L 100.0100, L500.2500 ####[facility] [address] [place], [address] NEUT% Normal 47-70 [facility] Comment on above: Result Comment: Canc elled via OM: Order cancelled - Patient discharged Performed By: #### L 100.0100, L500.2500 ####[facility] [address] [place], [address] PLT Normal 150-450 [facility] Comment on above: Result Comment: Canc elled via OM: Order cancelled - Patient discharged Performed By: #### L 100.0100, L500.2500 ####[facility] [address] [place], [address] RBC Normal 4.6-6.2 [facility] Comment on above: Result Comment: Canc elled via OM: Order cancelled - Patient discharged Performed By: #### L 100.0100, L500.2500 ####[facility] [address] [place], [address] RDW CV Normal 11.6-14.6 [facility] Comment on above: Result Comment: Canc elled via OM: Order cancelled - Patient discharged Performed By: #### L 100.0100, L500.2500 ####[facility] [address] [place], [address] RDW SD Normal 35.1-43.9 [facility] Comment on above: Result Comment: Canc elled via OM: Order cancelled - Patient discharged Performed By: #### L 100.0100, L500.2500 ####[facility] [address] [place], [address] WBC Normal 4.4-11.0 [facility] Comment on above: Result Comment: Canc elled via OM: Order cancelled - Patient discharged Performed By: #### L 100.0100, L500.2500 ####[facility] [address] [place], [address] Internal Medicine Office Vis iton 10-07-2023 Internal Medicine Office Visit Normal [facility] Basic Metabolic Profile (BMP )on 10-06-2023 BUN Normal 7-18 [facility] Comment on above: Result Comment: Canc elled via OM: Order cancelled - Patient discharged Performed By: #### L 500.2500, L100.0100 ####[facility] [address] [place], [address] BUN/CRE Normal 10-20 [facility] Comment on above: Result Comment: Canc elled via OM: Order cancelled - Patient discharged Performed By: #### L 500.2500, L100.0100 ####[facility] [address] [place], [address] CA,Total Normal 8.5-10.1 [facility] Comment on above: Result Comment: Canc elled via OM: Order cancelled - Patient discharged Performed By: #### L 500.2500, L100.0100 ####[facility] [address] [place], [address] CL Normal 98-107 [facility] Comment on above: Result Comment: Canc elled via OM: Order cancelled - Patient discharged Performed By: #### L 500.2500, L100.0100 ####[facility] [address] [place], [address] CO2 Normal 21.0-32.0 [facility] Comment on above: Result Comment: Canc elled via OM: Order cancelled - Patient discharged Performed By: #### L 500.2500, L100.0100 ####[facility] [address] [place], [address] CREAT,SERUM Normal 0.70-1.30 [facility] Comment on above: Result Comment: Canc elled via OM: Order cancelled - Patient discharged Performed By: #### L 500.2500, L100.0100 ####[facility] [address] [place], [address] EST GFR Normal >60 [facility] Comment on above: Result Comment: Canc elled via OM: Order cancelled - Patient discharged Performed By: #### L 500.2500, L100.0100 ####[facility] [address] [place], [address] EST GFR - AA Normal >60 [facility] Comment on above: Result Comment: Canc elled via OM: Order cancelled - Patient discharged Performed By: #### L 500.2500, L100.0100 ####[facility] [address] [place], [address] GAP Normal 5-15 [facility] Comment on above: Result Comment: Canc elled via OM: Order cancelled - Patient discharged Performed By: #### L 500.2500, L100.0100 ####[facility] [address] [place], [address] GLU Normal 74-106 [facility] Comment on above: Result Comment: Canc elled via OM: Order cancelled - Patient discharged Performed By: #### L 500.2500, L100.0100 ####[facility] [address] [place], [address] Potassium Normal 3.5-5.1 [facility] Comment on above: Result Comment: Canc elled via OM: Order cancelled - Patient discharged Performed By: #### L 500.2500, L100.0100 ####[facility] [address] [place], [address] Basic Metabolic Profile (BMP) Normal 136-145 [facility] Comment on above: Result Comment: Canc elled via OM: Order cancelled - Patient discharged Performed By: #### L 500.2500, L100.0100 ####[facility] [address] [place], [address] CBC W/Diff, Automatedon 08-2 -2023 Absolute Neut Normal 2.0-7.7 [facility] Comment on above: Result Comment: Canc elled via OM: Order cancelled - Patient discharged Performed By: #### L 500.2500, L100.0100 ####[facility] [address] [place], [address] HCT Normal 40-54 [facility] Comment on above: Result Comment: Canc elled via OM: Order cancelled - Patient discharged Performed By: #### L 500.2500, L100.0100 ####[facility] [address] [place], [address] HGB Normal 13.0-16.5 [facility] Comment on above: Result Comment: Canc elled via OM: Order cancelled - Patient discharged Performed By: #### L 500.2500, L100.0100 ####[facility] [address] [place], [address] MCH Normal 27.0-32.0 [facility] Comment on above: Result Comment: Canc elled via OM: Order cancelled - Patient discharged Performed By: #### L 500.2500, L100.0100 ####[facility] [address] [place], [address] MCHC Normal 32-36 [facility] Comment on above: Result Comment: Canc elled via OM: Order cancelled - Patient discharged Performed By: #### L 500.2500, L100.0100 ####[facility] [address] [place], [address] MCV Normal 80-94 [facility] Comment on above: Result Comment: Canc elled via OM: Order cancelled - Patient discharged Performed By: #### L 500.2500, L100.0100 ####[facility] [address] [place], [address] NEUT% Normal 47-70 [facility] Comment on above: Result Comment: Canc elled via OM: Order cancelled - Patient discharged Performed By: #### L 500.2500, L100.0100 ####[facility] [address] [place], [address] PLT Normal 150-450 [facility] Comment on above: Result Comment: Canc elled via OM: Order cancelled - Patient discharged Performed By: #### L 500.2500, L100.0100 ####[facility] [address] [place], [address] RBC Normal 4.6-6.2 [facility] Comment on above: Result Comment: Canc elled via OM: Order cancelled - Patient discharged Performed By: #### L 500.2500, L100.0100 ####[facility] [address] [place], [address] RDW CV Normal 11.6-14.6 [facility] Comment on above: Result Comment: Canc elled via OM: Order cancelled - Patient discharged Performed By: #### L 500.2500, L100.0100 ####[facility] [address] [place], [address] RDW SD Normal 35.1-43.9 [facility] Comment on above: Result Comment: Canc elled via OM: Order cancelled - Patient discharged Performed By: #### L 500.2500, L100.0100 ####[facility] [address] [place], [address] WBC Normal 4.4-11.0 [facility] Comment on above: Result Comment: Canc elled via OM: Order cancelled - Patient discharged Performed By: #### L 500.2500, L100.0100 ####[facility] [address] [place], [address] Basic Metabolic Profile (BMP )on 10-05-2023 BUN Normal 7-18 [facility] Comment on above: Result Comment: Canc elled via OM: Order cancelled - Patient discharged Performed By: #### L 500.2500, L100.0100 ####[facility] [address] [place], [address] BUN/CRE Normal 10-20 [facility] Comment on above: Result Comment: Canc elled via OM: Order cancelled - Patient discharged Performed By: #### L 500.2500, L100.0100 ####[facility] [address] [place], [address] CA,Total Normal 8.5-10.1 [facility] Comment on above: Result Comment: Canc elled via OM: Order cancelled - Patient discharged Performed By: #### L 500.2500, L100.0100 ####[facility] [address] [place], [address] CL Normal 98-107 [facility] Comment on above: Result Comment: Canc elled via OM: Order cancelled - Patient discharged Performed By: #### L 500.2500, L100.0100 ####[facility] [address] [place], [address] CO2 Normal 21.0-32.0 [facility] Comment on above: Result Comment: Canc elled via OM: Order cancelled - Patient discharged Performed By: #### L 500.2500, L100.0100 ####[facility] [address] [place], [address] CREAT,SERUM Normal 0.70-1.30 [facility] Comment on above: Result Comment: Canc elled via OM: Order cancelled - Patient discharged Performed By: #### L 500.2500, L100.0100 ####[facility] [address] [place], [address] EST GFR Normal >60 [facility] Comment on above: Result Comment: Canc elled via OM: Order cancelled - Patient discharged Performed By: #### L 500.2500, L100.0100 ####[facility] [address] [place], [address] EST GFR - AA Normal >60 [facility] Comment on above: Result Comment: Canc elled via OM: Order cancelled - Patient discharged Performed By: #### L 500.2500, L100.0100 ####[facility] [address] [place], [address] GAP Normal 5-15 [facility] Comment on above: Result Comment: Canc elled via OM: Order cancelled - Patient discharged Performed By: #### L 500.2500, L100.0100 ####[facility] [address] [place], [address] GLU Normal 74-106 [facility] Comment on above: Result Comment: Canc elled via OM: Order cancelled - Patient discharged Performed By: #### L 500.2500, L100.0100 ####[facility] [address] [place], [address] Potassium Normal 3.5-5.1 [facility] Comment on above: Result Comment: Canc elled via OM: Order cancelled - Patient discharged Performed By: #### L 500.2500, L100.0100 ####[facility] [address] [place], [address] Basic Metabolic Profile (BMP) Normal 136-145 [facility] Comment on above: Result Comment: Canc elled via OM: Order cancelled - Patient discharged Performed By: #### L 500.2500, L100.0100 ####[facility] [address] [place], [address] CBC W/Diff, Automatedon 08-2 -2023 Absolute Neut Normal 2.0-7.7 [facility] Comment on above: Result Comment: Canc elled via OM: Order cancelled - Patient discharged Performed By: #### L 500.2500, L100.0100 ####[facility] [address] [place], [address] HCT Normal 40-54 [facility] Comment on above: Result Comment: Canc elled via OM: Order cancelled - Patient discharged Performed By: #### L 500.2500, L100.0100 ####[facility] [address] [place], [address] HGB Normal 13.0-16.5 [facility] Comment on above: Result Comment: Canc elled via OM: Order cancelled - Patient discharged Performed By: #### L 500.2500, L100.0100 ####[facility] [address] [place], [address] MCH Normal 27.0-32.0 [facility] Comment on above: Result Comment: Canc elled via OM: Order cancelled - Patient discharged Performed By: #### L 500.2500, L100.0100 ####[facility] [address] [place], [address] MCHC Normal 32-36 [facility] Comment on above: Result Comment: Canc elled via OM: Order cancelled - Patient discharged Performed By: #### L 500.2500, L100.0100 ####[facility] [address] [place], [address] MCV Normal 80-94 [facility] Comment on above: Result Comment: Canc elled via OM: Order cancelled - Patient discharged Performed By: #### L 500.2500, L100.0100 ####[facility] [address] [place], [address] NEUT% Normal 47-70 [facility] Comment on above: Result Comment: Canc elled via OM: Order cancelled - Patient discharged Performed By: #### L 500.2500, L100.0100 ####[facility] [address] [place], [address] PLT Normal 150-450 [facility] Comment on above: Result Comment: Canc elled via OM: Order cancelled - Patient discharged Performed By: #### L 500.2500, L100.0100 ####[facility] [address] [place], [address] RBC Normal 4.6-6.2 [facility] Comment on above: Result Comment: Canc elled via OM: Order cancelled - Patient discharged Performed By: #### L 500.2500, L100.0100 ####[facility] [address] [place], [address] RDW CV Normal 11.6-14.6 [facility] Comment on above: Result Comment: Canc elled via OM: Order cancelled - Patient discharged Performed By: #### L 500.2500, L100.0100 ####[facility] [address] [place], [address] RDW SD Normal 35.1-43.9 [facility] Comment on above: Result Comment: Canc elled via OM: Order cancelled - Patient discharged Performed By: #### L 500.2500, L100.0100 ####[facility] [address] [place], [address] WBC Normal 4.4-11.0 [facility] Comment on above: Result Comment: Canc elled via OM: Order cancelled - Patient discharged Performed By: #### L 500.2500, L100.0100 ####[facility] [address] [place], [address] Basic Metabolic Profile (BMP )on 10-04-2023 BUN Normal 7-18 [facility] Comment on above: Result Comment: Canc elled via OM: Order cancelled - Patient discharged Performed By: #### L 100.0100, L500.2500 ####[facility] [address] [place], [address] BUN/CRE Normal 10-20 [facility] Comment on above: Result Comment: Canc elled via OM: Order cancelled - Patient discharged Performed By: #### L 100.0100, L500.2500 ####[facility] [address] [place], [address] CA,Total Normal 8.5-10.1 [facility] Comment on above: Result Comment: Canc elled via OM: Order cancelled - Patient discharged Performed By: #### L 100.0100, L500.2500 ####[facility] [address] [place], [address] CL Normal 98-107 [facility] Comment on above: Result Comment: Canc elled via OM: Order cancelled - Patient discharged Performed By: #### L 100.0100, L500.2500 ####[facility] [address] [place], [address] CO2 Normal 21.0-32.0 [facility] Comment on above: Result Comment: Canc elled via OM: Order cancelled - Patient discharged Performed By: #### L 100.0100, L500.2500 ####[facility] [address] [place], [address] CREAT,SERUM Normal 0.70-1.30 [facility] Comment on above: Result Comment: Canc elled via OM: Order cancelled - Patient discharged Performed By: #### L 100.0100, L500.2500 ####[facility] [address] [place], [address] EST GFR Normal >60 [facility] Comment on above: Result Comment: Canc elled via OM: Order cancelled - Patient discharged Performed By: #### L 100.0100, L500.2500 ####[facility] [address] [place], [address] EST GFR - AA Normal >60 [facility] Comment on above: Result Comment: Canc elled via OM: Order cancelled - Patient discharged Performed By: #### L 100.0100, L500.2500 ####[facility] [address] [place], [address] GAP Normal 5-15 [facility] Comment on above: Result Comment: Canc elled via OM: Order cancelled - Patient discharged Performed By: #### L 100.0100, L500.2500 ####[facility] [address] [place], [address] GLU Normal 74-106 [facility] Comment on above: Result Comment: Canc elled via OM: Order cancelled - Patient discharged Performed By: #### L 100.0100, L500.2500 ####[facility] [address] [place], [address] Potassium Normal 3.5-5.1 [facility] Comment on above: Result Comment: Canc elled via OM: Order cancelled - Patient discharged Performed By: #### L 100.0100, L500.2500 ####[facility] [address] [place], [address] Basic Metabolic Profile (BMP) Normal 136-145 [facility] Comment on above: Result Comment: Canc elled via OM: Order cancelled - Patient discharged Performed By: #### L 100.0100, L500.2500 ####[facility] [address] [place], [address] CBC W/Diff, Automatedon 08-2 -2023 Absolute Neut Normal 2.0-7.7 [facility] Comment on above: Result Comment: Canc elled via OM: Order cancelled - Patient discharged Performed By: #### L 100.0100, L500.2500 ####[facility] [address] [place], [address] HCT Normal 40-54 [facility] Comment on above: Result Comment: Canc elled via OM: Order cancelled - Patient discharged Performed By: #### L 100.0100, L500.2500 ####[facility] [address] [place], [address] HGB Normal 13.0-16.5 [facility] Comment on above: Result Comment: Canc elled via OM: Order cancelled - Patient discharged Performed By: #### L 100.0100, L500.2500 ####[facility] [address] [place], [address] MCH Normal 27.0-32.0 [facility] Comment on above: Result Comment: Canc elled via OM: Order cancelled - Patient discharged Performed By: #### L 100.0100, L500.2500 ####[facility] [address] [place], [address] MCHC Normal 32-36 [facility] Comment on above: Result Comment: Canc elled via OM: Order cancelled - Patient discharged Performed By: #### L 100.0100, L500.2500 ####[facility] [address] [place], [address] MCV Normal 80-94 [facility] Comment on above: Result Comment: Canc elled via OM: Order cancelled - Patient discharged Performed By: #### L 100.0100, L500.2500 ####[facility] [address] [place], [address] NEUT% Normal 47-70 [facility] Comment on above: Result Comment: Canc elled via OM: Order cancelled - Patient discharged Performed By: #### L 100.0100, L500.2500 ####[facility] [address] [place], [address] PLT Normal 150-450 [facility] Comment on above: Result Comment: Canc elled via OM: Order cancelled - Patient discharged Performed By: #### L 100.0100, L500.2500 ####[facility] [address] [place], [address] RBC Normal 4.6-6.2 [facility] Comment on above: Result Comment: Canc elled via OM: Order cancelled - Patient discharged Performed By: #### L 100.0100, L500.2500 ####[facility] [address] [place], [address] RDW CV Normal 11.6-14.6 [facility] Comment on above: Result Comment: Canc elled via OM: Order cancelled - Patient discharged Performed By: #### L 100.0100, L500.2500 ####[facility] [address] [place], [address] RDW SD Normal 35.1-43.9 [facility] Comment on above: Result Comment: Canc elled via OM: Order cancelled - Patient discharged Performed By: #### L 100.0100, L500.2500 ####[facility] [address] [place], [address] WBC Normal 4.4-11.0 [facility] Comment on above: Result Comment: Canc elled via OM: Order cancelled - Patient discharged Performed By: #### L 100.0100, L500.2500 ####[facility] [address] [place], [address] Culture, Blood (WB)on 2023 CUB Blood cultures x2 fr om two different sites No growth in 5 days. Normal [facility] Comment on above: Performed By: #### M 200.1000, L501.3620, L300.4310 ####[facility] [address] [place], [address] Basic Metabolic Profile (BMP )on 10-03-2023 BUN Normal 7-18 [facility] Comment on above: Result Comment: Canc elled via OM: Order cancelled - Patient discharged Performed By: #### L 100.0100, L500.2500 ####[facility] [address] [place], [address] BUN/CRE Normal 10-20 [facility] Comment on above: Result Comment: Canc elled via OM: Order cancelled - Patient discharged Performed By: #### L 100.0100, L500.2500 ####[facility] [address] [place], [address] CA,Total Normal 8.5-10.1 [facility] Comment on above: Result Comment: Canc elled via OM: Order cancelled - Patient discharged Performed By: #### L 100.0100, L500.2500 ####[facility] [address] [place], [address] CL Normal 98-107 [facility] Comment on above: Result Comment: Canc elled via OM: Order cancelled - Patient discharged Performed By: #### L 100.0100, L500.2500 ####[facility] [address] [place], [address] CO2 Normal 21.0-32.0 [facility] Comment on above: Result Comment: Canc elled via OM: Order cancelled - Patient discharged Performed By: #### L 100.0100, L500.2500 ####[facility] [address] [place], [address] CREAT,SERUM Normal 0.70-1.30 [facility] Comment on above: Result Comment: Canc elled via OM: Order cancelled - Patient discharged Performed By: #### L 100.0100, L500.2500 ####[facility] [address] [place], [address] EST GFR Normal >60 [facility] Comment on above: Result Comment: Canc elled via OM: Order cancelled - Patient discharged Performed By: #### L 100.0100, L500.2500 ####[facility] [address] [place], [address] EST GFR - AA Normal >60 [facility] Comment on above: Result Comment: Canc elled via OM: Order cancelled - Patient discharged Performed By: #### L 100.0100, L500.2500 ####[facility] [address] [place], [address] GAP Normal 5-15 [facility] Comment on above: Result Comment: Canc elled via OM: Order cancelled - Patient discharged Performed By: #### L 100.0100, L500.2500 ####[facility] [address] [place], [address] GLU Normal 74-106 [facility] Comment on above: Result Comment: Canc elled via OM: Order cancelled - Patient discharged Performed By: #### L 100.0100, L500.2500 ####[facility] [address] [place], [address] Potassium Normal 3.5-5.1 [facility] Comment on above: Result Comment: Canc elled via OM: Order cancelled - Patient discharged Performed By: #### L 100.0100, L500.2500 ####[facility] [address] [place], [address] Basic Metabolic Profile (BMP) Normal 136-145 [facility] Comment on above: Result Comment: Canc elled via OM: Order cancelled - Patient discharged Performed By: #### L 100.0100, L500.2500 ####[facility] [address] [place], [address] CBC W/Diff, Automatedon - Absolute Neut Normal 2.0-7.7 [facility] Comment on above: Result Comment: Canc elled via OM: Order cancelled - Patient discharged Performed By: #### L 100.0100, L500.2500 ####[facility] [address] [place], [address] HCT Normal 40-54 [facility] Comment on above: Result Comment: Canc elled via OM: Order cancelled - Patient discharged Performed By: #### L 100.0100, L500.2500 ####[facility] [address] [place], [address] HGB Normal 13.0-16.5 [facility] Comment on above: Result Comment: Canc elled via OM: Order cancelled - Patient discharged Performed By: #### L 100.0100, L500.2500 ####[facility] [address] [place], [address] MCH Normal 27.0-32.0 [facility] Comment on above: Result Comment: Canc elled via OM: Order cancelled - Patient discharged Performed By: #### L 100.0100, L500.2500 ####[facility] [address] [place], [address] MCHC Normal 32-36 [facility] Comment on above: Result Comment: Canc elled via OM: Order cancelled - Patient discharged Performed By: #### L 100.0100, L500.2500 ####[facility] [address] [place], [address] MCV Normal 80-94 [facility] Comment on above: Result Comment: Canc elled via OM: Order cancelled - Patient discharged Performed By: #### L 100.0100, L500.2500 ####[facility] [address] [place], [address] NEUT% Normal 47-70 [facility] Comment on above: Result Comment: Canc elled via OM: Order cancelled - Patient discharged Performed By: #### L 100.0100, L500.2500 ####[facility] [address] [place], [address] PLT Normal 150-450 [facility] Comment on above: Result Comment: Canc elled via OM: Order cancelled - Patient discharged Performed By: #### L 100.0100, L500.2500 ####[facility] [address] [place], [address] RBC Normal 4.6-6.2 [facility] Comment on above: Result Comment: Canc elled via OM: Order cancelled - Patient discharged Performed By: #### L 100.0100, L500.2500 ####[facility] [address] [place], [address] RDW CV Normal 11.6-14.6 [facility] Comment on above: Result Comment: Canc elled via OM: Order cancelled - Patient discharged Performed By: #### L 100.0100, L500.2500 ####[facility] [address] [place], [address] RDW SD Normal 35.1-43.9 [facility] Comment on above: Result Comment: Canc elled via OM: Order cancelled - Patient discharged Performed By: #### L 100.0100, L500.2500 ####[facility] [address] [place], [address] WBC Normal 4.4-11.0 [facility] Comment on above: Result Comment: Canc elled via OM: Order cancelled - Patient discharged Performed By: #### L 100.0100, L500.2500 ####[facility] [address] [place], [address] Basic Metabolic Profile (BMP )on 10-02-2023 BUN Normal 7-18 [facility] Comment on above: Result Comment: Canc elled via OM: Order cancelled - Patient discharged Performed By: #### L 100.0100, L500.2500 ####[facility] [address] [place], [address] BUN/CRE Normal 10-20 [facility] Comment on above: Result Comment: Canc elled via OM: Order cancelled - Patient discharged Performed By: #### L 100.0100, L500.2500 ####[facility] [address] [place], [address] CA,Total Normal 8.5-10.1 [facility] Comment on above: Result Comment: Canc elled via OM: Order cancelled - Patient discharged Performed By: #### L 100.0100, L500.2500 ####[facility] [address] [place], [address] CL Normal 98-107 [facility] Comment on above: Result Comment: Canc elled via OM: Order cancelled - Patient discharged Performed By: #### L 100.0100, L500.2500 ####[facility] [address] [place], [address] CO2 Normal 21.0-32.0 [facility] Comment on above: Result Comment: Canc elled via OM: Order cancelled - Patient discharged Performed By: #### L 100.0100, L500.2500 ####[facility] [address] [place], [address] CREAT,SERUM Normal 0.70-1.30 [facility] Comment on above: Result Comment: Canc elled via OM: Order cancelled - Patient discharged Performed By: #### L 100.0100, L500.2500 ####[facility] [address] [place], [address] EST GFR Normal >60 [facility] Comment on above: Result Comment: Canc elled via OM: Order cancelled - Patient discharged Performed By: #### L 100.0100, L500.2500 ####[facility] [address] [place], [address] EST GFR - AA Normal >60 [facility] Comment on above: Result Comment: Canc elled via OM: Order cancelled - Patient discharged Performed By: #### L 100.0100, L500.2500 ####[facility] [address] [place], [address] GAP Normal 5-15 [facility] Comment on above: Result Comment: Canc elled via OM: Order cancelled - Patient discharged Performed By: #### L 100.0100, L500.2500 ####[facility] [address] [place], [address] GLU Normal 74-106 [facility] Comment on above: Result Comment: Canc elled via OM: Order cancelled - Patient discharged Performed By: #### L 100.0100, L500.2500 ####[facility] [address] [place], [address] Potassium Normal 3.5-5.1 [facility] Comment on above: Result Comment: Canc elled via OM: Order cancelled - Patient discharged Performed By: #### L 100.0100, L500.2500 ####[facility] [address] [place], [address] Basic Metabolic Profile (BMP) Normal 136-145 [facility] Comment on above: Result Comment: Canc elled via OM: Order cancelled - Patient discharged Performed By: #### L 100.0100, L500.2500 ####[facility] [address] [place], [address] CBC W/Diff, Automatedon 08- Absolute Neut Normal 2.0-7.7 [facility] Comment on above: Result Comment: Canc elled via OM: Order cancelled - Patient discharged Performed By: #### L 100.0100, L500.2500 ####[facility] [address] [place], [address] HCT Normal 40-54 [facility] Comment on above: Result Comment: Canc elled via OM: Order cancelled - Patient discharged Performed By: #### L 100.0100, L500.2500 ####[facility] [address] [place], [address] HGB Normal 13.0-16.5 [facility] Comment on above: Result Comment: Canc elled via OM: Order cancelled - Patient discharged Performed By: #### L 100.0100, L500.2500 ####[facility] [address] [place], [address] MCH Normal 27.0-32.0 [facility] Comment on above: Result Comment: Canc elled via OM: Order cancelled - Patient discharged Performed By: #### L 100.0100, L500.2500 ####[facility] [address] [place], [address] MCHC Normal 32-36 [facility] Comment on above: Result Comment: Canc elled via OM: Order cancelled - Patient discharged Performed By: #### L 100.0100, L500.2500 ####[facility] [address] [place], [address] MCV Normal 80-94 [facility] Comment on above: Result Comment: Canc elled via OM: Order cancelled - Patient discharged Performed By: #### L 100.0100, L500.2500 ####[facility] [address] [place], [address] NEUT% Normal 47-70 [facility] Comment on above: Result Comment: Canc elled via OM: Order cancelled - Patient discharged Performed By: #### L 100.0100, L500.2500 ####[facility] [address] [place], [address] PLT Normal 150-450 [facility] Comment on above: Result Comment: Canc elled via OM: Order cancelled - Patient discharged Performed By: #### L 100.0100, L500.2500 ####[facility] [address] [place], [address] RBC Normal 4.6-6.2 [facility] Comment on above: Result Comment: Canc elled via OM: Order cancelled - Patient discharged Performed By: #### L 100.0100, L500.2500 ####[facility] [address] [place], [address] RDW CV Normal 11.6-14.6 [facility] Comment on above: Result Comment: Canc elled via OM: Order cancelled - Patient discharged Performed By: #### L 100.0100, L500.2500 ####[facility] [address] [place], [address] RDW SD Normal 35.1-43.9 [facility] Comment on above: Result Comment: Canc elled via OM: Order cancelled - Patient discharged Performed By: #### L 100.0100, L500.2500 ####[facility] [address] [place], [address] WBC Normal 4.4-11.0 [facility] Comment on above: Result Comment: Canc elled via OM: Order cancelled - Patient discharged Performed By: #### L 100.0100, L500.2500 ####[facility] [address] [place], [address] Basic Metabolic Profile (BMP )on 10-01-2023 BUN Normal 7-18 [facility] Comment on above: Result Comment: Canc elled via OM: Order cancelled - Patient discharged Performed By: #### L 100.0100, L500.2500 ####[facility] [address] [place], [address] BUN/CRE Normal 10-20 [facility] Comment on above: Result Comment: Canc elled via OM: Order cancelled - Patient discharged Performed By: #### L 100.0100, L500.2500 ####[facility] [address] [place], [address] CA,Total Normal 8.5-10.1 [facility] Comment on above: Result Comment: Canc elled via OM: Order cancelled - Patient discharged Performed By: #### L 100.0100, L500.2500 ####[facility] [address] [place], [address] CL Normal 98-107 [facility] Comment on above: Result Comment: Canc elled via OM: Order cancelled - Patient discharged Performed By: #### L 100.0100, L500.2500 ####[facility] [address] [place], [address] CO2 Normal 21.0-32.0 [facility] Comment on above: Result Comment: Canc elled via OM: Order cancelled - Patient discharged Performed By: #### L 100.0100, L500.2500 ####[facility] [address] [place], [address] CREAT,SERUM Normal 0.70-1.30 [facility] Comment on above: Result Comment: Canc elled via OM: Order cancelled - Patient discharged Performed By: #### L 100.0100, L500.2500 ####[facility] [address] [place], [address] EST GFR Normal >60 [facility] Comment on above: Result Comment: Canc elled via OM: Order cancelled - Patient discharged Performed By: #### L 100.0100, L500.2500 ####[facility] [address] [place], [address] EST GFR - AA Normal >60 [facility] Comment on above: Result Comment: Canc elled via OM: Order cancelled - Patient discharged Performed By: #### L 100.0100, L500.2500 ####[facility] [address] [place], [address] GAP Normal 5-15 [facility] Comment on above: Result Comment: Canc elled via OM: Order cancelled - Patient discharged Performed By: #### L 100.0100, L500.2500 ####[facility] [address] [place], [address] GLU Normal 74-106 [facility] Comment on above: Result Comment: Canc elled via OM: Order cancelled - Patient discharged Performed By: #### L 100.0100, L500.2500 ####[facility] [address] [place], [address] Potassium Normal 3.5-5.1 [facility] Comment on above: Result Comment: Canc elled via OM: Order cancelled - Patient discharged Performed By: #### L 100.0100, L500.2500 ####[facility] [address] [place], [address] Basic Metabolic Profile (BMP) Normal 136-145 [facility] Comment on above: Result Comment: Canc elled via OM: Order cancelled - Patient discharged Performed By: #### L 100.0100, L500.2500 ####[facility] [address] [place], [address] CBC W/Diff, Automatedon 08-2 Absolute Neut Normal 2.0-7.7 [facility] Comment on above: Result Comment: Canc elled via OM: Order cancelled - Patient discharged Performed By: #### L 100.0100, L500.2500 ####[facility] [address] [place], [address] HCT Normal 40-54 [facility] Comment on above: Result Comment: Canc elled via OM: Order cancelled - Patient discharged Performed By: #### L 100.0100, L500.2500 ####[facility] [address] [place], [address] HGB Normal 13.0-16.5 [facility] Comment on above: Result Comment: Canc elled via OM: Order cancelled - Patient discharged Performed By: #### L 100.0100, L500.2500 ####[facility] [address] [place], [address] MCH Normal 27.0-32.0 [facility] Comment on above: Result Comment: Canc elled via OM: Order cancelled - Patient discharged Performed By: #### L 100.0100, L500.2500 ####[facility] [address] [place], [address] MCHC Normal 32-36 [facility] Comment on above: Result Comment: Canc elled via OM: Order cancelled - Patient discharged Performed By: #### L 100.0100, L500.2500 ####[facility] [address] [place], [address] MCV Normal 80-94 [facility] Comment on above: Result Comment: Canc elled via OM: Order cancelled - Patient discharged Performed By: #### L 100.0100, L500.2500 ####[facility] [address] [place], [address] NEUT% Normal 47-70 [facility] Comment on above: Result Comment: Canc elled via OM: Order cancelled - Patient discharged Performed By: #### L 100.0100, L500.2500 ####[facility] [address] [place], [address] PLT Normal 150-450 [facility] Comment on above: Result Comment: Canc elled via OM: Order cancelled - Patient discharged Performed By: #### L 100.0100, L500.2500 ####[facility] [address] [place], [address] RBC Normal 4.6-6.2 [facility] Comment on above: Result Comment: Canc elled via OM: Order cancelled - Patient discharged Performed By: #### L 100.0100, L500.2500 ####[facility] [address] [place], [address] RDW CV Normal 11.6-14.6 [facility] Comment on above: Result Comment: Canc elled via OM: Order cancelled - Patient discharged Performed By: #### L 100.0100, L500.2500 ####[facility] [address] [place], [address] RDW SD Normal 35.1-43.9 [facility] Comment on above: Result Comment: Canc elled via OM: Order cancelled - Patient discharged Performed By: #### L 100.0100, L500.2500 ####[facility] [address] [place], [address] WBC Normal 4.4-11.0 [facility] Comment on above: Result Comment: Canc elled via OM: Order cancelled - Patient discharged Performed By: #### L 100.0100, L500.2500 ####[facility] [address] [place], [address] Prothrombin Time w/INRon INR Normal [facility] Comment on above: Result Comment: Canc elled via OM: Order cancelled - Patient discharged Performed By: #### L 300.3900 ####[facility] [address] [place], [address] PROTIME Normal 11.7-14.9 [facility] Comment on above: Result Comment: Canc elled via OM: Order cancelled - Patient discharged Performed By: #### L 300.3900 ####[facility] [address] [place], [address] Basic Metabolic Profile (BMP )on 09-30-2023 BUN/CRE 10.8 RATIO Normal 10-20 [facility] Comment on above: Performed By: #### L 100.0100, L500.2500 ####[facility] [address] [place], [address] CA,Total 8.7 mg/dL Normal 8.5-10.1 [facility] Comment on above: Performed By: #### L 100.0100, L500.2500 ####[facility] [address] [place], [address] Chloride [Moles/Vol] 107 mmol/L Normal 98-107 [facility] Comment on above: Performed By: #### L 100.0100, L500.2500 ####[facility] [address] [place], [address] CO2 [Moles/Vol] 24.0 mmol/L Normal 21.0-32.0 [facility] Comment on above: Performed By: #### L 100.0100, L500.2500 ####[facility] [address] [place], [address] Creatinine [Mass/Vol] 1.02 mg/dL Normal 0.70-1.30 [facility] Comment on above: Result Comment: The validity of the calculated GFR GFRAA in patients over70 years has not been determined. Clinical correlation isessential. Performed By: #### L 100.0100, L500.2500 ####[facility] [address] [place], [address] ECRCL 70.43 ml/min Normal [facility] Comment on above: Performed By: #### L 100.0100, L500.2500 ####[facility] [address] [place], [address] EST GFR - AA 91 mL/min Normal >60 [facility] Comment on above: Result Comment: Afri can [place] GFR Calc Performed By: #### L 100.0100, L500.2500 ####[facility] [address] [place], [address] GAP 6 Normal 5-15 [facility] Comment on above: Performed By: #### L 100.0100, L500.2500 ####[facility] [address] [place], [address] GFR/1.73 sq M.predicted among non-blacks MDRD (S/P/Bld) [Vol rate/Area] 75 mL/min/{1.73_m2} Normal >60 [facility] Comment on above: Result Comment: Non- GFR Calc Performed By: #### L 100.0100, L500.2500 ####[facility] [address] [place], [address] Glucose [Mass/Vol] 130 mg/dL High 74-106 [facility] Comment on above: Result Comment: Fast ing Glucose result greater than or equal to 126 mg/dLsuggests DIABETES MELLITUS per A.D.A. criteria. Performed By: #### L 100.0100, L500.2500 ####[facility] [address] [place], [address] Potassium [Moles/Vol] 3.8 mmol/L Normal 3.5-5.1 [facility] Comment on above: Performed By: #### L 100.0100, L500.2500 ####[facility] [address] [place], [address] Sodium [Moles/Vol] 137 mmol/L Normal 136-145 [facility] Comment on above: Performed By: #### L 100.0100, L500.2500 ####[facility] [address] [place], [address] Urea nitrogen [Mass/Vol] 11 mg/dL Normal 7-18 [facility] Comment on above: Performed By: #### L 100.0100, L500.2500 ####[facility] [address] [place], [address] CBC W/Diff, Automatedon 08-2 Absolute Lymph 2.68 X10 3/uL Normal 0.83-4.51 [facility] Comment on above: Performed By: #### L 100.0100, L500.2500 ####[facility] [address] [place], [address] Absolute Neut 3.4 X10 3/uL Normal 2.0-7.7 [facility] Comment on above: Performed By: #### L 100.0100, L500.2500 ####[facility] [address] [place], [address] Basophils/100 WBC (Bld) 0.8 % Normal 0-1 [facility] Comment on above: Performed By: #### L 100.0100, L500.2500 ####[facility] [address] [place], [address] Eosinophils/100 WBC (Bld) 5.1 % High 0-5 [facility] Comment on above: Performed By: #### L 100.0100, L500.2500 ####[facility] [address] [place], [address] Erythrocyte distribution width (RBC) [Ratio] 14.3 % Normal 11.6-14.6 [facility] Comment on above: Performed By: #### L 100.0100, L500.2500 ####[facility] [address] [place], [address] Hematocrit (Bld) [Volume fraction] 38.7 % Low 40-54 [facility] Comment on above: Performed By: #### L 100.0100, L500.2500 ####[facility] [address] [place], [address] Hemoglobin (Bld) [Mass/Vol] 12.7 g/dL Low 13.0-16.5 [facility] Comment on above: Performed By: #### L 100.0100, L500.2500 ####[facility] [address] [place], [address] IG% 1.000 High 0.0-0.9 [facility] Comment on above: Result Comment: IG% - Immature Granulocytes (promyelocytes, myelocytes andmetamyelocytes) > 1% indicates that a LEFT SHIFT is Present. Performed By: #### L 100.0100, L500.2500 ####[facility] [address] [place], [address] Lymphocytes/100 WBC (Bld) 37.6 % Normal 19-41 [facility] Comment on above: Performed By: #### L 100.0100, L500.2500 ####[facility] [address] [place], [address] MCH (RBC) [Entitic mass] 30.5 pg Normal 27.0-32.0 [facility] Comment on above: Performed By: #### L 100.0100, L500.2500 ####[facility] [address] [place], [address] MCHC (RBC) [Mass/Vol] 32.8 g/dL Normal 32-36 [facility] Comment on above: Performed By: #### L 100.0100, L500.2500 ####[facility] [address] [place], [address] MCV (RBC) [Entitic vol] 92.8 fL Normal 80-94 [facility] Comment on above: Performed By: #### L 100.0100, L500.2500 ####[facility] [address] [place], [address] Monocytes/100 WBC (Bld) 7.6 % Normal 0-10 [facility] Comment on above: Performed By: #### L 100.0100, L500.2500 ####[facility] [address] [place], [address] Neutrophils/100 WBC (Bld) 47.9 % Normal 47-70 [facility] Comment on above: Performed By: #### L 100.0100, L500.2500 ####[facility] [address] [place], [address] Nucleated RBC (Bld) [#/Vol] 0 10*3/uL Normal 0-5 [facility] Comment on above: Performed By: #### L 100.0100, L500.2500 ####[facility] [address] [place], [address] Platelet mean volume (Bld) [Entitic vol] 9.5 fL Normal 6.2-12.0 [facility] Comment on above: Performed By: #### L 100.0100, L500.2500 ####[facility] [address] [place], [address] Platelets (Bld) [#/Vol] 289 10*3/uL Normal 150-450 [facility] Comment on above: Performed By: #### L 100.0100, L500.2500 ####[facility] [address] [place], [address] RBC (Bld) [#/Vol] 4.17 10*6/uL Low 4.6-6.2 [facility] Comment on above: Performed By: #### L 100.0100, L500.2500 ####[facility] [address] [place], [address] RDW SD 48.4 fl High 35.1-43.9 [facility] Comment on above: Performed By: #### L 100.0100, L500.2500 ####[facility] [address] [place], [address] WBC (Bld) [#/Vol] 7.1 10*3/uL Normal 4.4-11.0 [facility] Comment on above: Performed By: #### L 100.0100, L500.2500 ####[facility] [address] [place], [address] Discharge Instructionon - Discharge Instruction Normal [facility] Prothrombin Time w/INRon INR Coag (PPP) [Relative time] 2.7 {INR} Normal [facility] Comment on above: Performed By: #### L 300.3900 ####[facility] [address] [place], [address] PT Coag (PPP) [Time] 28.4 s High 11.7-14.9 [facility] Comment on above: Performed By: #### L 300.3900 ####[facility] [address] [place], [address] Urine Cultureon 09-30-2023 URC Normal [facility] Comment on above: Performed By: #### M 100.2200, M100.637 ####[facility] [address] [place], [address] Basic Metabolic Profile (BMP )on 09-29-2023 BUN/CRE 9.3 RATIO Low 10-20 [facility] Comment on above: Performed By: #### L 300.3900, L100.0100, L500.2500 ####[facility] [address] [place], [address] CA,Total 8.4 mg/dL Low 8.5-10.1 [facility] Comment on above: Performed By: #### L 300.3900, L100.0100, L500.2500 ####[facility] [address] [place], [address] Chloride [Moles/Vol] 107 mmol/L Normal 98-107 [facility] Comment on above: Performed By: #### L 300.3900, L100.0100, L500.2500 ####[facility] [address] [place], [address] CO2 [Moles/Vol] 23.0 mmol/L Normal 21.0-32.0 [facility] Comment on above: Performed By: #### L 300.3900, L100.0100, L500.2500 ####[facility] [address] [place], [address] Creatinine [Mass/Vol] 1.07 mg/dL Normal 0.70-1.30 [facility] Comment on above: Result Comment: The validity of the calculated GFR GFRAA in patients over70 years has not been determined. Clinical correlation isessential. Performed By: #### L 300.3900, L100.0100, L500.2500 ####[facility] [address] [place], [address] ECRCL 67.14 ml/min Normal [facility] Comment on above: Performed By: #### L 300.3900, L100.0100, L500.2500 ####[facility] [address] [place], [address] EST GFR - AA 86 mL/min Normal >60 [facility] Comment on above: Result Comment: Afri can [place] GFR Calc Performed By: #### L 300.3900, L100.0100, L500.2500 ####[facility] [address] [place], [address] GAP 7 Normal 5-15 [facility] Comment on above: Performed By: #### L 300.3900, L100.0100, L500.2500 ####[facility] [address] [place], [address] GFR/1.73 sq M.predicted among non-blacks MDRD (S/P/Bld) [Vol rate/Area] 71 mL/min/{1.73_m2} Normal >60 [facility] Comment on above: Result Comment: Non- GFR Calc Performed By: #### L 300.3900, L100.0100, L500.2500 ####[facility] [address] [place], [address] Glucose [Mass/Vol] 109 mg/dL High 74-106 [facility] Comment on above: Result Comment: Fast ing Glucose result from 100 to 125 mg/dLsuggests IMPAIRED HOMEOSTASIS per A.D.A. criteria. Performed By: #### L 300.3900, L100.0100, L500.2500 ####[facility] [address] [place], [address] Potassium [Moles/Vol] 3.8 mmol/L Normal 3.5-5.1 [facility] Comment on above: Performed By: #### L 300.3900, L100.0100, L500.2500 ####[facility] [address] [place], [address] Sodium [Moles/Vol] 137 mmol/L Normal 136-145 [facility] Comment on above: Performed By: #### L 300.3900, L100.0100, L500.2500 ####[facility] [address] [place], [address] Urea nitrogen [Mass/Vol] 10 mg/dL Normal 7-18 [facility] Comment on above: Performed By: #### L 300.3900, L100.0100, L500.2500 ####[facility] [address] [place], [address] Bedside Glucoseon 09-29-2023 FINGERSTICK GLU 111 mg/dL High 74-106 [facility] Comment on above: Result Comment: ASIF AVILA OF PATIENT CARE PER NURSING PROTOCOL Performed By: #### L 501.080 ####[facility] [address] [place], [address] CBC W/Diff, Automatedon 09-10 0 Absolute Lymph 2.67 X10 3/uL Normal 0.83-4.51 [facility] Comment on above: Performed By: #### L 300.3900, L100.0100, L500.2500 ####[facility] [address] [place], [address] Absolute Neut 4.3 X10 3/uL Normal 2.0-7.7 [facility] Comment on above: Performed By: #### L 300.3900, L100.0100, L500.2500 ####[facility] [address] [place], [address] Basophils/100 WBC (Bld) 0.5 % Normal 0-1 [facility] Comment on above: Performed By: #### L 300.3900, L100.0100, L500.2500 ####[facility] [address] [place], [address] Eosinophils/100 WBC (Bld) 2.8 % Normal 0-5 [facility] Comment on above: Performed By: #### L 300.3900, L100.0100, L500.2500 ####[facility] [address] [place], [address] Erythrocyte distribution width (RBC) [Ratio] 14.3 % Normal 11.6-14.6 [facility] Comment on above: Performed By: #### L 300.3900, L100.0100, L500.2500 ####[facility] [address] [place], [address] Hematocrit (Bld) [Volume fraction] 38.3 % Low 40-54 [facility] Comment on above: Performed By: #### L 300.3900, L100.0100, L500.2500 ####[facility] [address] [place], [address] Hemoglobin (Bld) [Mass/Vol] 12.7 g/dL Low 13.0-16.5 [facility] Comment on above: Performed By: #### L 300.3900, L100.0100, L500.2500 ####[facility] [address] [place], [address] IG% 1.400 High 0.0-0.9 [facility] Comment on above: Result Comment: IG% - Immature Granulocytes (promyelocytes, myelocytes andmetamyelocytes) > 1% indicates that a LEFT SHIFT is Present. Performed By: #### L 300.3900, L100.0100, L500.2500 ####[facility] [address] [place], [address] Lymphocytes/100 WBC (Bld) 33.8 % Normal 19-41 [facility] Comment on above: Performed By: #### L 300.3900, L100.0100, L500.2500 ####[facility] [address] [place], [address] MCH (RBC) [Entitic mass] 30.7 pg Normal 27.0-32.0 [facility] Comment on above: Performed By: #### L 300.3900, L100.0100, L500.2500 ####[facility] [address] [place], [address] MCHC (RBC) [Mass/Vol] 33.2 g/dL Normal 32-36 [facility] Comment on above: Performed By: #### L 300.3900, L100.0100, L500.2500 ####[facility] [address] [place], [address] MCV (RBC) [Entitic vol] 92.5 fL Normal 80-94 [facility] Comment on above: Performed By: #### L 300.3900, L100.0100, L500.2500 ####[facility] [address] [place], [address] Monocytes/100 WBC (Bld) 7.4 % Normal 0-10 [facility] Comment on above: Performed By: #### L 300.3900, L100.0100, L500.2500 ####[facility] [address] [place], [address] Neutrophils/100 WBC (Bld) 54.1 % Normal 47-70 [facility] Comment on above: Performed By: #### L 300.3900, L100.0100, L500.2500 ####[facility] [address] [place], [address] Nucleated RBC (Bld) [#/Vol] 0 10*3/uL Normal 0-5 [facility] Comment on above: Performed By: #### L 300.3900, L100.0100, L500.2500 ####[facility] [address] [place], [address] Platelet mean volume (Bld) [Entitic vol] 9.0 fL Normal 6.2-12.0 [facility] Comment on above: Performed By: #### L 300.3900, L100.0100, L500.2500 ####[facility] [address] [place], [address] Platelets (Bld) [#/Vol] 288 10*3/uL Normal 150-450 [facility] Comment on above: Performed By: #### L 300.3900, L100.0100, L500.2500 ####[facility] [address] [place], [address] RBC (Bld) [#/Vol] 4.14 10*6/uL Low 4.6-6.2 [facility] Comment on above: Performed By: #### L 300.3900, L100.0100, L500.2500 ####[facility] [address] [place], [address] RDW SD 48.4 fl High 35.1-43.9 [facility] Comment on above: Performed By: #### L 300.3900, L100.0100, L500.2500 ####[facility] [address] [place], [address] WBC (Bld) [#/Vol] 7.9 10*3/uL Normal 4.4-11.0 [facility] Comment on above: Performed By: #### L 300.3900, L100.0100, L500.2500 ####[facility] [address] [place], [address] CDIFF (PCR)on 09-29-2023 CDIFF Normal [facility] Comment on above: Performed By: #### M 100.2996, M100.6795 ####[facility] [address] [place], [address] Clostridium Diff Toxin/Agon 09-29-2023 CDIFF (EIA) Normal [facility] Comment on above: Performed By: #### M 100.7596, M100.6795 ####[facility] [address] [place], [address] Consultation - Urologyon Consultation - Urology Normal [facility] ENTERIC PATHOGEN PANEL STOOL on 09-29-2023 EP PANEL Normal [facility] Comment on above: Performed By: #### M 100.2200, M100.637 ####[facility] [address] [place], [address] Lactic Acidon 09-29-2023 Lactate [Moles/Vol] 1.9 mmol/L Normal 0.4-1.9 [facility] Comment on above: Order Comment: Comme nts: timed lactic acid labY Performed By: #### L 503.6005 ####[facility] [address] [place], [address] Prothrombin Time w/INRon INR Coag (PPP) [Relative time] 3.9 {INR} Normal [facility] Comment on above: Performed By: #### L 300.3900, L100.0100, L500.2500 ####[facility] [address] [place], [address] PT Coag (PPP) [Time] 38.0 s High 11.7-14.9 [facility] Comment on above: Performed By: #### L 300.3900, L100.0100, L500.2500 ####[facility] [address] [place], [address] 12 Lead EKGon 09-28-2023 12 Lead EKG Normal [facility] Abdomen/Pelvis W IV Cont ONL Yon 09-28-2023 Abdomen/Pelvis W IV Cont ONLY Normal [facility] CBC W/Diff, Automatedon 09-09 Absolute Lymph 2.72 X10 3/uL Normal 0.83-4.51 [facility] Comment on above: Performed By: #### L 500.4050, L100.0100 ####[facility] [address] [place], [address] Absolute Neut 7.2 X10 3/uL Normal 2.0-7.7 [facility] Comment on above: Performed By: #### L 500.4050, L100.0100 ####[facility] [address] [place], [address] Basophils/100 WBC (Bld) 0.5 % Normal 0-1 [facility] Comment on above: Performed By: #### L 500.4050, L100.0100 ####[facility] [address] [place], [address] Eosinophils/100 WBC (Bld) 2.1 % Normal 0-5 [facility] Comment on above: Performed By: #### L 500.4050, L100.0100 ####[facility] [address] [place], [address] Erythrocyte distribution width (RBC) [Ratio] 14.0 % Normal 11.6-14.6 [facility] Comment on above: Performed By: #### L 500.4050, L100.0100 ####[facility] [address] [place], [address] Hematocrit (Bld) [Volume fraction] 43.7 % Normal 40-54 [facility] Comment on above: Performed By: #### L 500.4050, L100.0100 ####[facility] [address] [place], [address] Hemoglobin (Bld) [Mass/Vol] 14.3 g/dL Normal 13.0-16.5 [facility] Comment on above: Performed By: #### L 500.4050, L100.0100 ####[facility] [address] [place], [address] IG% 1.000 High 0.0-0.9 [facility] Comment on above: Result Comment: IG% - Immature Granulocytes (promyelocytes, myelocytes andmetamyelocytes) > 1% indicates that a LEFT SHIFT is Present. Performed By: #### L 500.4050, L100.0100 ####[facility] [address] [place], [address] Lymphocytes/100 WBC (Bld) 24.2 % Normal 19-41 [facility] Comment on above: Performed By: #### L 500.4050, L100.0100 ####[facility] [address] [place], [address] MCH (RBC) [Entitic mass] 30.4 pg Normal 27.0-32.0 [facility] Comment on above: Performed By: #### L 500.4050, L100.0100 ####[facility] [address] [place], [address] MCHC (RBC) [Mass/Vol] 32.7 g/dL Normal 32-36 [facility] Comment on above: Performed By: #### L 500.4050, L100.0100 ####[facility] [address] [place], [address] MCV (RBC) [Entitic vol] 92.8 fL Normal 80-94 [facility] Comment on above: Performed By: #### L 500.4050, L100.0100 ####[facility] [address] [place], [address] Monocytes/100 WBC (Bld) 7.7 % Normal 0-10 [facility] Comment on above: Performed By: #### L 500.4050, L100.0100 ####[facility] [address] [place], [address] Neutrophils/100 WBC (Bld) 64.5 % Normal 47-70 [facility] Comment on above: Performed By: #### L 500.4050, L100.0100 ####[facility] [address] [place], [address] Nucleated RBC (Bld) [#/Vol] 0 10*3/uL Normal 0-5 [facility] Comment on above: Performed By: #### L 500.4050, L100.0100 ####[facility] [address] [place], [address] Platelet mean volume (Bld) [Entitic vol] 8.9 fL Normal 6.2-12.0 [facility] Comment on above: Performed By: #### L 500.4050, L100.0100 ####[facility] [address] [place], [address] Platelets (Bld) [#/Vol] 342 10*3/uL Normal 150-450 [facility] Comment on above: Performed By: #### L 500.4050, L100.0100 ####[facility] [address] [place], [address] RBC (Bld) [#/Vol] 4.71 10*6/uL Normal 4.6-6.2 [facility] Comment on above: Performed By: #### L 500.4050, L100.0100 ####[facility] [address] [place], [address] RDW SD 48.2 fl High 35.1-43.9 [facility] Comment on above: Performed By: #### L 500.4050, L100.0100 ####[facility] [address] [place], [address] WBC (Bld) [#/Vol] 11.2 10*3/uL High 4.4-11.0 [facility] Comment on above: Performed By: #### L 500.4050, L100.0100 ####[facility] [address] [place], [address] CPK Total, Creatine Kinaseon 09-28-2023 CPK TOTAL 116 U/L Normal 39-308 [facility] Comment on above: Performed By: #### M 200.1000, L501.3620, L300.4310 ####[facility] [address] [place], [address] Comprehensive Metabolic Prof ilon 09-28-2023 Albumin [Mass/Vol] 3.1 g/dL Low 3.2-5.0 [facility] Comment on above: Performed By: #### L 500.4050, L100.0100 ####[facility] [address] [place], [address] Albumin/Globulin [Mass ratio] 0.6 {ratio} Low 0.9-2.4 [facility] Comment on above: Performed By: #### L 500.4050, L100.0100 ####[facility] [address] [place], [address] ALK P 99 U/L Normal 45-117 [facility] Comment on above: Performed By: #### L 500.4050, L100.0100 ####[facility] [address] [place], [address] ALT [Catalytic activity/Vol] 56 U/L Normal 16-61 [facility] Comment on above: Performed By: #### L 500.4050, L100.0100 ####[facility] [address] [place], [address] AST [Catalytic activity/Vol] 46 U/L High 15-37 [facility] Comment on above: Performed By: #### L 500.4050, L100.0100 ####[facility] [address] [place], [address] Bilirubin [Mass/Vol] 1.00 mg/dL Normal 0.20-1.00 [facility] Comment on above: Result Comment: For patients on eltrombopag therapy, use of Dimension [place] TBIL is not recommended. Performed By: #### L 500.4050, L100.0100 ####[facility] [address] [place], [address] BUN/CRE 10.3 RATIO Normal 10-20 [facility] Comment on above: Performed By: #### L 500.4050, L100.0100 ####[facility] [address] [place], [address] CA,Total 9.2 mg/dL Normal 8.5-10.1 [facility] Comment on above: Performed By: #### L 500.4050, L100.0100 ####[facility] [address] [place], [address] Chloride [Moles/Vol] 104 mmol/L Normal 98-107 [facility] Comment on above: Performed By: #### L 500.4050, L100.0100 ####[facility] [address] [place], [address] CO2 [Moles/Vol] 25.0 mmol/L Normal 21.0-32.0 [facility] Comment on above: Performed By: #### L 500.4050, L100.0100 ####[facility] [address] [place], [address] Creatinine [Mass/Vol] 1.45 mg/dL High 0.70-1.30 [facility] Comment on above: Result Comment: The validity of the calculated GFR GFRAA in patients over70 years has not been determined. Clinical correlation isessential. Performed By: #### L 500.4050, L100.0100 ####[facility] [address] [place], [address] ECRCL 49.70 ml/min Normal [facility] Comment on above: Performed By: #### L 500.4050, L100.0100 ####[facility] [address] [place], [address] EST GFR - AA 61 mL/min Normal >60 [facility] Comment on above: Result Comment: Afri can [place] GFR Calc Performed By: #### L 500.4050, L100.0100 ####[facility] [address] [place], [address] GAP 7 Normal 5-15 [facility] Comment on above: Performed By: #### L 500.4050, L100.0100 ####[facility] [address] [place], [address] GFR/1.73 sq M.predicted among non-blacks MDRD (S/P/Bld) [Vol rate/Area] 50 mL/min/{1.73_m2} Low >60 [facility] Comment on above: Result Comment: Non- GFR Calc Performed By: #### L 500.4050, L100.0100 ####[facility] [address] [place], [address] Globulin (S) [Mass/Vol] 5.0 g/dL High 2.2-4.2 [facility] Comment on above: Performed By: #### L 500.4050, L100.0100 ####[facility] [address] [place], [address] Glucose [Mass/Vol] 106 mg/dL Normal 74-106 [facility] Comment on above: Result Comment: Fast ing Glucose result from 100 to 125 mg/dLsuggests IMPAIRED HOMEOSTASIS per A.D.A. criteria. Performed By: #### L 500.4050, L100.0100 ####[facility] [address] [place], [address] Potassium [Moles/Vol] 4.5 mmol/L Normal 3.5-5.1 [facility] Comment on above: Performed By: #### L 500.4050, L100.0100 ####[facility] [address] [place], [address] Sodium [Moles/Vol] 136 mmol/L Normal 136-145 [facility] Comment on above: Performed By: #### L 500.4050, L100.0100 ####[facility] [address] [place], [address] T PROT 8.1 g/dL Normal 6.4-8.2 [facility] Comment on above: Performed By: #### L 500.4050, L100.0100 ####[facility] [address] [place], [address] Urea nitrogen [Mass/Vol] 15 mg/dL Normal 7-18 [facility] Comment on above: Performed By: #### L 500.4050, L100.0100 ####[facility] [address] [place], [address] Emergency Department Summary on 09-28-2023 Emergency Department Summary Normal [facility] H AND P Exam - Hospitaliston 09-28-2023 H&P Exam - Hospitalist Normal [facility] Lactic Acidon 09-28-2023 Lactate [Moles/Vol] 3.8 mmol/L Invalid Interpretation Code 0.4-1.9 [facility] Comment on above: Result Comment: Crit ical Result(s) Called at: 21:56:38 09/28/2023 by:Alanis Benito to Marta. Results read back bysame. Performed By: #### L 503.6005 ####[facility] [address] [place], [address] Lactate [Moles/Vol] 2.3 mmol/L Invalid Interpretation Code 0.4-1.9 [facility] Comment on above: Order Comment: Y Result Comment: Crit ical Result(s) Called at: 17:34:07 09/28/2023 by:SHWETA MACKNAH HUMPHREY. Results read back by same. Performed By: #### L 503.6005 ####[facility] [address] [place], [address] Partial Thromboplast Timeon 09-28-2023 aPTT Coag (Bld) [Time] 64.9 s High 24.1-36.2 [facility] Comment on above: Performed By: #### M 200.1000, L501.3620, L300.4310 ####[facility] [address] [place], [address] Prothrombin Time w/INRon INR Coag (PPP) [Relative time] 4.0 {INR} Invalid Interpretation Code [facility] Comment on above: Result Comment: CRIT ICAL VALUE VERIFIED. CALLED TO [id number]/19/24 1631 Alanis Benito.RESULTS READ BACK BY SAME . Performed By: #### L 300.3900 ####[facility] [address] [place], [address] PT Coag (PPP) [Time] 38.3 s High 11.7-14.9 [facility] Comment on above: Performed By: #### L 300.3900 ####[facility] [address] [place], [address] Urinalysis, Completeon 09-27 BACTERIA 2+ /hpf Normal None Seen [facility] Comment on above: Order Comment: CLEAN CATCH Performed By: #### L 400.0001 ####[facility] [address] [place], [address] EPI,SQUAMOUS 10-25 SEEN Normal 0-5 [facility] Comment on above: Order Comment: CLEAN CATCH Performed By: #### L 400.0001 ####[facility] [address] [place], [address] RBC > 100 SEEN Normal 0-5 [facility] Comment on above: Order Comment: CLEAN CATCH Performed By: #### L 400.0001 ####[facility] [address] [place], [address] WBC >100 SEEN Normal 0-5 [facility] Comment on above: Order Comment: CLEAN CATCH Performed By: #### L 400.0001 ####[facility] [address] [place], [address] BILIRUBIN URINE Negative Normal Negative [facility] Comment on above: Order Comment: CLEAN CATCH Performed By: #### L 400.0001 ####[facility] [address] [place], [address] Clarity (U) Clear Normal Clear [facility] Comment on above: Order Comment: CLEAN CATCH Performed By: #### L 400.0001 ####[facility] [address] [place] [id number] Color (U) Yellow Normal Yellow [facility] Comment on above: Order Comment: CLEAN CATCH Performed By: #### L 400.0001 ####[facility] [address] [place], [address] GLUCOSE, UR Normal Normal Normal [facility] Comment on above: Order Comment: CLEAN CATCH Performed By: #### L 400.0001 ####[facility] [address] [place], [address] KETONE UR Negative Normal Negative [facility] Comment on above: Order Comment: CLEAN CATCH Performed By: #### L 400.0001 ####[facility] [address] [place], [address] LEUK ESTERASE 500 /ul Abnormal Negative [facility] Comment on above: Order Comment: CLEAN CATCH Performed By: #### L 400.0001 ####[facility] [address] [place], [address] Nitrite Ql (U) Negative Normal Negative [facility] Comment on above: Order Comment: CLEAN CATCH Performed By: #### L 400.0001 ####[facility] [address] [place], [address] OCCULT BLOOD-UR 250 /ul Abnormal Negative [facility] Comment on above: Order Comment: CLEAN CATCH Performed By: #### L 400.0001 ####[facility] [address] [place], [address] pH UR 5.0 Normal 5.0 - 8.0 [facility] Comment on above: Order Comment: CLEAN CATCH Performed By: #### L 400.0001 ####[facility] [address] [place], [address] PROT DIPSTX 15 mg/dl Abnormal Negative [facility] Comment on above: Order Comment: CLEAN CATCH Performed By: #### L 400.0001 ####[facility] [address] [place] [id number] SP.GR. DIPSTX 1.015 Normal 1.002-1.03 0 [facility] Comment on above: Order Comment: CLEAN CATCH Performed By: #### L 400.0001 ####[facility] [address] [place], [address] UROBILI Normal Normal Normal [facility] Comment on above: Order Comment: CLEAN CATCH Performed By: #### L 400.0001 ####[facility] [address] [place], [address] Mucus Ql (Urine sed) 0 SEEN Normal [facility] Comment on above: Order Comment: CLEAN CATCH Performed By: #### L 400.0001 ####[facility] [address] [place], [address] Lung Screeningon 07-31-[address] Lung Screening Normal [facility] Absolute lymphocyte countOrd ered By: Luis Hay on 04-15-2023 Lymphocytes Auto (Unsp spec) [#/Vol] 2.40 10*3/uL 0.83-4.51 [facility] Automated lymphocyte count a s percentage of total leukocytesOrdered By: Luis Hay on 04-15-2023 Lymphocytes/100 WBC Auto (Unsp spec) 29.0 % 19-41 [facility] Basophil percentageOrdered B y: Luis Hay on 04-15-2023 Basophils/100 WBC (Bld) 0.7 % 0-1 [facility] Bilirubin [Mass/Vol] 1.40 mg/dL 0.20-1.00 [facility] Comment on above: For patients on eltr ombopag therapy, use of Dimension [place] TBIL is not recommended. Chloride [Moles/Vol] 105 mmol/L 98-107 [facility] Cholesterol [Mass/Vol] 137 mg/dL <200 [facility] Comment on above: <200 mg/dL Desirable 200-240 mg/dL Borderline >240 mg/dL High Risk Eosinophils/100 WBC (Bld) 3.5 % 0-5 [facility] Glucose [Mass/Vol] 181 mg/dL 74-106 [facility] Comment on above: Fasting Glucose resu lt greater than or equal to 126 mg/dL suggests DIABETES MELLITUS per A.D.A. criteria. Hemoglobin (Bld) [Mass/Vol] 14.7 g/dL 13.0-16.5 [facility] Monocytes/100 WBC (Bld) 8.0 % 0-10 [facility] Neutrophils (Bld) [#/Vol] 4.9 10*3/uL 2.0-7.7 [facility] Neutrophils/100 WBC (Bld) 58.6 % 47-70 [facility] Potassium [Moles/Vol] 4.8 mmol/L 3.5-5.1 [facility] Protein [Mass/Vol] 7.5 g/dL 6.4-8.2 [facility] Sodium [Moles/Vol] 139 mmol/L 136-145 [facility] Triglyceride [Mass/Vol] 297 mg/dL <199 [facility] Comment on above: The drugs N-Acetylcy steine and Metamizole may falsely depress this assay.Serum Triglycerides Reference Interval Normal <150 mg/dL Borderline high 150 - 199 mg/dL High 200 - 499 mg/dL Very High > or = 500 mg/dL WBC (Bld) [#/Vol] 8.3 10*3/uL 4.4-11.0 [facility] Determination of erythrocyte mean corpuscular volume (MCV)Ordered By: Luis Hay on 04-15-2023 MCV (RBC) [Entitic vol] 93.8 fL 80-94 [facility] Erythrocyte distribution wid th ratioOrdered By: [facility] Del Rosariojeanne on 04-15-2023 Erythrocyte distribution width (RBC) [Ratio] 13.8 % 11.6-14.6 [facility] Erythrocyte distribution wid th standard deviationOrdered By: [facility] Miguel Ángeljeanne on 04-15-2023 Erythrocyte distribution width (RBC) [Entitic vol] 47.3 fL 35.1-43.9 [facility] Hematocrit Auto (Bld) [Volum e fraction]Ordered By: [facility] Miguel Ángeljeanne on 04-15-2023 Hematocrit (Bld) [Volume fraction] 44.0 % 40-54 [facility] Immature granulocytes/100 WB C Auto (Bld)Ordered By: [facility] Miguel Ángeljeanne on 04-15-2023 Immature granulocytes/100 WBC (Bld) 0.200 % 0.0-0.9 [facility] Comment on above: IG% - Immature Granu locytes (promyelocytes, myelocytes and metamyelocytes) > 1% indicates that a LEFT SHIFT is Present. Laboratory - Chemistry and C hemistry - challengeOrdered By: [facility] [employer] [facility] baseingrid Del Rosariojeanne on 04-15-2023 Albumin/Globulin [Mass ratio] 1.0 {ratio} 0.9-2.4 [facility] ALP [Catalytic activity/Vol] 61 U/L 45-117 [facility] ALT [Catalytic activity/Vol] 51 U/L 16-61 [facility] Cholesterol in HDL [Mass/Vol] 42 mg/dL >40 [facility] Comment on above: The drugs N-Acetylcy steine and Metamizole may falsely depress this assay. Reference Range HDL <40 mg/dL Low HDL Cholesterol HDL >or= 60 mg/dL High HDL Cholesterol Cholesterol in LDL [Mass/Vol] 36 mg/dL 0-130 [facility] CO2 [Moles/Vol] 28.0 mmol/L 21.0-32.0 [facility] Globulin (S) [Mass/Vol] 3.7 g/dL 2.2-4.2 [facility] Urea nitrogen/Creatinine [Mass ratio] 9.5 mg/mg 10-20 [facility] Laboratory - Hematology and Cell countsOrdered By: Luis Hay on 04-15-2023 MCH (RBC) [Entitic mass] 31.3 pg 27.0-32.0 [facility] MCHC (RBC) [Mass/Vol] 33.4 g/dL 32-36 [facility] Nucleated RBC/100 WBC (Bld) [Ratio] 0 % 0-5 [facility] Platelet mean volume (Bld) [Entitic vol] 10.1 fL 6.2-12.0 [facility] Platelets (Bld) [#/Vol] 240 10*3/uL 150-450 [facility] No Panel InformationOrdered By: Luis Hay on 04-15-2023 Estimated GFR (MDRD) Amer 59 mL/min >60 [facility] Comment on above: GFR Calc Estimated GFR (MDRD) Non-Af Amer 49 mL/min >60 [facility] Comment on above: Non- GFR Calc VLDL Cholesterol 59 mg/dL 5-40 [facility] RBC Auto (Bld) [#/Vol]Ordere d By: Luis Hay on 04-15-2023 RBC (Bld) [#/Vol] 4.69 10*6/uL 4.6-6.2 [facility] Serum or plasma calcium musa urement (mass/volume)Ordered By: Luis Hay on 04-15-2023 Calcium [Mass/Vol] 9.5 mg/dL 8.5-10.1 [facility] Serum or plasma creatinine m easurement (mass/volume)Ordered By: Luis Hay on 04-15-2023 Creatinine [Mass/Vol] 1.48 mg/dL 0.70-1.30 [facility] Comment on above: The validity of the calculated GFR & GFRAA in patients over 70 years has not been determined. Clinical correlation is essential. Serum or plasma thyroid stim ulating hormone (TSH) measurement (units/volume)Ordered By: Luis Hay on 04-15-2023 TSH Qn 1.80 uIU/mL 0.358-3.74 [facility] Serum or plasma urea nitroge n measurement (mass/volume)Ordered By: Luis Hay on 04-15-2023 Urea nitrogen [Mass/Vol] 14 mg/dL 7-18 [facility] Thin prep Papanicolaou smear with manual screeningOrdered By: Luis Hay on 04-15-2023 Thin prep Papanicolaou smear with manual screening 3.8 g/dL 3.2-5.0 [facility] Thin prep Papanicolaou smear with manual screening 37 U/L 15-37 [facility] Thin prep Papanicolaou smear with manual screening 6 5-15 [facility] Thin prep Papanicolaou smear with manual screening 0.91 ng/dL 0.76-1.46 [facility] Whole blood hemoglobin A1c/t otal hemoglobin ratio (mass fraction)Ordered By: Luis Hay on 04-15-2023 HbA1c (Bld) [Mass fraction] 6.5 % 3.8-5.6 [facility] Comment on above: Normal < 5.7 % Predi abetic 5.7 - 6.4 % Diabetic >or= 6.5 % Please note range changes. No Panel Informationon 04-09 INR International Normalized Ratio 2.6 [facility] No Panel Informationon 03-30 INR International Normalized Ratio 1.8 [facility] No Panel Informationon 03-13 INR International Normalized Ratio 2.6 [facility] No Panel Informationon 02-27 INR International Normalized Ratio 2.1 [facility] No Panel Informationon 02-20 INR International Normalized Ratio 1.6 [facility] No Panel Informationon 02-06 INR International Normalized Ratio 2.7 [facility] No Panel Informationon 01-18 INR International Normalized Ratio 3.0 [facility] - Hematology and Cell countson 01-14-2023 HbA1c (Bld) [Mass fraction] 7.2 % 4.2-6.3 [facility] No Panel Informationon 12-29 INR International Normalized Ratio 2.4 [facility] No Panel Informationon 10-31 INR International Normalized Ratio 1.9 [facility] No Panel InformationOrdered By: Luis Hay on 10-29-2022 Urine Microalbumin/Creatinine Ratio 9.2 mg/g CRE <30 [facility] Thin prep Papanicolaou smear with manual screeningOrdered By: Luis Hay on 10-29-2022 Thin prep Papanicolaou smear with manual screening 6.3 mg/L NO RANGE EST. [facility] Urine creatinine measurement (mass/volume)Ordered By: Luis Hay on 10-29-2022 Creatinine (U) [Mass/Vol] 68.70 mg/dL NO RANGE EST. [facility] Basophil percentageOrdered B y: Luis Hay on 10-22-2022 Bilirubin [Mass/Vol] 1.10 mg/dL 0.20-1.00 [facility] Comment on above: For patients on eltr ombopag therapy, use of Dimension [place] TBIL is not recommended. Chloride [Moles/Vol] 103 mmol/L 98-107 [facility] Glucose [Mass/Vol] 192 mg/dL 74-106 [facility] Comment on above: Fasting Glucose resu lt greater than or equal to 126 mg/dL suggests DIABETES MELLITUS per A.D.A. criteria. Potassium [Moles/Vol] 4.6 mmol/L 3.5-5.1 [facility] Protein [Mass/Vol] 7.6 g/dL 6.4-8.2 [facility] Sodium [Moles/Vol] 135 mmol/L 136-145 [facility] Laboratory - Chemistry and C hemistry - challengeOrdered By: Luis aHy on 10-22-2022 ALP [Catalytic activity/Vol] 65 U/L 45-117 [facility] ALT [Catalytic activity/Vol] 60 U/L 16-61 [facility] CO2 [Moles/Vol] 24.0 mmol/L 21.0-32.0 [facility] Globulin (S) [Mass/Vol] 3.8 g/dL 2.2-4.2 [facility] Urea nitrogen/Creatinine [Mass ratio] 10.1 mg/mg 10-20 [facility] No Panel InformationOrdered By: Luis Hay on 10-22-2022 Estimated GFR (MDRD) Amer 64 mL/min >60 [facility] Comment on above: GFR Calc Estimated GFR (MDRD) Non-Af Amer 53 mL/min >60 [facility] Comment on above: Non- GFR Calc Serum or plasma albumin musa urement (mass/volume)Ordered By: Luis Hay on 10-22-2022 Albumin [Mass/Vol] 3.8 g/dL 3.2-5.0 [facility] Serum or plasma albumin/glob ulin mass ratioOrdered By: Luis Hay on 10-22-2022 Albumin/Globulin [Mass ratio] 1.0 {ratio} 0.9-2.4 [facility] Serum or plasma calcium musa urement (mass/volume)Ordered By: Luis Hay on 10-22-2022 Calcium [Mass/Vol] 9.3 mg/dL 8.5-10.1 [facility] Serum or plasma creatinine m easurement (mass/volume)Ordered By: Luis Hay on 10-22-2022 Creatinine [Mass/Vol] 1.39 mg/dL 0.70-1.30 [facility] Comment on above: The validity of the calculated GFR & GFRAA in patients over 70 years has not been determined. Clinical correlation is essential. Serum or plasma urea nitroge n measurement (mass/volume)Ordered By: Luis Hay on 10-22-2022 Urea nitrogen [Mass/Vol] 14 mg/dL 7-18 [facility] Thin prep Papanicolaou smear with manual screeningOrdered By: Luis Hay on 10-22-2022 Thin prep Papanicolaou smear with manual screening 37 U/L 15-37 [facility] Thin prep Papanicolaou smear with manual screening 8 5-15 [facility] Whole blood hemoglobin A1c/t otal hemoglobin ratio (mass fraction)Ordered By: Luis Hay on 10-22-2022 HbA1c (Bld) [Mass fraction] 7.2 % 3.8-5.6 [facility] Comment on above: Normal < 5.7 % Predi abetic 5.7 - 6.4 % Diabetic >or= 6.5 % Please note range changes. No Panel Informationon 10-10 INR International Normalized Ratio 2.9 [facility] No Panel Informationon 09-27 INR International Normalized Ratio 2.4 [facility] No Panel Informationon 09-14 INR International Normalized Ratio 2.5 [facility] No Panel Informationon 08-29 INR International Normalized Ratio 2.4 [facility] No Panel Informationon 08-16 INR International Normalized Ratio 2.6 [facility] No Panel Informationon 08-08 INR International Normalized Ratio 1.9 [facility] - Hematology and Cell countson 07-28-2022 HbA1c (Bld) [Mass fraction] 8.2 % 4.2-6.3 [facility] No Panel Informationon 07-25 INR International Normalized Ratio 2.8 [facility] No Panel Informationon 07-11 INR International Normalized Ratio 2.6 [facility] Absolute lymphocyte countOrd ered By: Oksana Guillermo on 04-14-2022 Lymphocytes Auto (Unsp spec) [#/Vol] 2.65 10*3/uL 0.83-4.51 [facility] Basophil percentageOrdered B y: Oksana Guillermo on 04-14-2022 Basophils/100 WBC (Bld) 0.7 % 0-1 [facility] Bilirubin [Mass/Vol] 1.20 mg/dL 0.20-1.00 [facility] Comment on above: For patients on eltr ombopag therapy, use of Dim[place] TBIL is not recommended. Chloride [Moles/Vol] 101 mmol/L 98-107 [facility] Cholesterol [Mass/Vol] 159 mg/dL <200 [facility] Comment on above: <200 mg/dL Desirable 200-240 mg/dL Borderline >240 mg/dL High Risk Eosinophils/100 WBC (Bld) 2.6 % 0-5 [facility] Glucose [Mass/Vol] 182 mg/dL 74-106 [facility] Comment on above: Fasting Glucose resu lt greater than or equal to 126 mg/dL suggests DIABETES MELLITUS per A.D.A. criteria. Neutrophils (Bld) [#/Vol] 5.0 10*3/uL 2.0-7.7 [facility] Neutrophils/100 WBC (Bld) 57.0 % 47-70 [facility] Potassium [Moles/Vol] 4.5 mmol/L 3.5-5.1 [facility] Protein [Mass/Vol] 7.5 g/dL 6.4-8.2 [facility] Sodium [Moles/Vol] 137 mmol/L 136-145 [facility] Triglyceride [Mass/Vol] 316 mg/dL <199 [facility] Comment on above: The drugs N-Acetylcy steine and Metamizole may falsely depress this assay.Serum Triglycerides Reference Interval Normal <150 mg/dL Borderline high 150 - 199 mg/dL High 200 - 499 mg/dL Very High > or = 500 mg/dL WBC (Bld) [#/Vol] 8.8 10*3/uL 4.4-11.0 [facility] Blood erythrocytes count (nu mber/volume)Ordered By: Oksana Guillermo on 04-14-2022 RBC (Bld) [#/Vol] 4.68 10*6/uL 4.6-6.2 [facility] Blood hemoglobin measurement (mass/volume)Ordered By: Oksana Guillermo on 04-14-2022 Hemoglobin (Bld) [Mass/Vol] 14.6 g/dL 13.0-16.5 [facility] Blood lymphocytes/100 leukoc ytesOrdered By: Oksana Guillermo on 04-14-2022 Lymphocytes/100 WBC (Bld) 30.0 % 19-41 [facility] Blood monocytes/100 leukocyt esOrdered By: Oksana Guillermo on 04-14-2022 Monocytes/100 WBC (Bld) 9.4 % 0-10 [facility] Blood platelet mean volumeOr dered By: Oksana Guillermo on 04-14-2022 Platelet mean volume (Bld) [Entitic vol] 10.4 fL 6.2-12.0 [facility] Determination of erythrocyte mean corpuscular volume (MCV)Ordered By: Oksana Guillermo on 04-14-2022 MCV (RBC) [Entitic vol] 94.9 fL 80-94 [facility] Direct bilirubinOrdered By: Oksana Guillermo on 04-14-2022 Bilirubin.direct [Mass/Vol] 0.23 mg/dL 0.00-0.30 [facility] Hematocrit Auto (Bld) [Volum e fraction]Ordered By: Oksana Guillermo on 04-14-2022 Hematocrit (Bld) [Volume fraction] 44.4 % 40-54 [facility] - Chemistry and C hemistry - challengeOrdered By: Oksana Guillermo on 04-14-2022 ALP [Catalytic activity/Vol] 58 U/L 45-117 [facility] ALT [Catalytic activity/Vol] 53 U/L 16-61 [facility] CO2 [Moles/Vol] 27.0 mmol/L 21.0-32.0 [facility] Globulin (S) [Mass/Vol] 3.7 g/dL 2.2-4.2 [facility] Natriuretic peptide B (Bld) [Mass/Vol] 27.2 pg/mL 0-100 [facility] Urea nitrogen/Creatinine [Mass ratio] 11.8 mg/mg 10-20 [facility] - Hematology and Cell countsOrdered By: Oksana Guillermo on 04-14-2022 Erythrocyte distribution width (RBC) [Entitic vol] 47.2 fL 35.1-43.9 [facility] Erythrocyte distribution width (RBC) [Ratio] 13.5 % 11.6-14.6 [facility] Immature granulocytes/100 WBC (Bld) 0.300 % 0.0-0.9 [facility] Comment on above: IG% - Immature Granu locytes (promyelocytes, myelocytes and metamyelocytes) > 1% indicates that a LEFT SHIFT is Present. MCH (RBC) [Entitic mass] 31.2 pg 27.0-32.0 [facility] Nucleated RBC/100 WBC (Bld) [Ratio] 0 % 0-5 [facility] MCHC Auto (RBC) [Mass/Vol]Or dered By: Oksana Guillermo on 04-14-2022 MCHC (RBC) [Mass/Vol] 32.9 g/dL 32-36 [facility] No Panel InformationOrdered By: Oksana Guillermo on 04-14-2022 Estimated GFR (MDRD) Amer 54 mL/min >60 [facility] Comment on above: GFR Calc Estimated GFR (MDRD) Non-Af Amer 45 mL/min >60 [facility] Comment on above: Non- GFR Calc Thyroid Stimulating Hormone (TSH) 2.36 uIU/mL 0.358-3.74 [facility] Platelets bldOrdered By: Nabil Guillermo on 04-14-2022 Platelets (Bld) [#/Vol] 227 10*3/uL 150-450 [facility] Serum or plasma albumin musa urement (mass/volume)Ordered By: Oksana Guillermo on 04-14-2022 Albumin [Mass/Vol] 3.8 g/dL 3.2-5.0 [facility] Serum or plasma calcium musa urement (mass/volume)Ordered By: Oksana Guillermo on 04-14-2022 Calcium [Mass/Vol] 9.5 mg/dL 8.5-10.1 [facility] Serum or plasma cholesterol in HDL measurement (mass/volume)Ordered By: Oksana Guillermo on 04-14-2022 Cholesterol in HDL [Mass/Vol] 41 mg/dL >40 [facility] Comment on above: The drugs N-Acetylcy steine and Metamizole may falsely depress this assay. Reference Range HDL <40 mg/dL Low HDL Cholesterol HDL >or= 60 mg/dL High HDL Cholesterol Serum or plasma cholesterol in VLDL measurement (mass/volume)Ordered By: Oksana Guillermo on 04-14-2022 Cholesterol in VLDL [Mass/Vol] 63 mg/dL 5-40 [facility] Serum or plasma creatinine m easurement (mass/volume)Ordered By: Oksana Guillermo on 04-14-2022 Creatinine [Mass/Vol] 1.61 mg/dL 0.70-1.30 [facility] Comment on above: The validity of the calculated GFR & GFRAA in patients over 70 years has not been determined. Clinical correlation is essential. Serum or plasma low density lipoprotein (LDL) cholesterol measurement (mass/volume)Ordered By: Oksana Guillermo on 04-14-2022 Cholesterol in LDL [Mass/Vol] 55 mg/dL 0-130 [facility] Serum or plasma urea nitroge n measurement (mass/volume)Ordered By: Oksana Guillermo on 04-14-2022 Urea nitrogen [Mass/Vol] 19 mg/dL 7-18 [facility] Thin prep Papanicolaou smear with manual screeningOrdered By: Oksana Guillermo on 04-14-2022 Thin prep Papanicolaou smear with manual screening 32 U/L 15-37 [facility] Thin prep Papanicolaou smear with manual screening 9 5-15 [facility] No Panel Informationon 04-13 INR International Normalized Ratio 2.9 [facility] No Panel Informationon 03-19 INR International Normalized Ratio 2.5 [facility] No Panel Informationon 02-28 INR International Normalized Ratio 2.8 [facility] No Panel Informationon 02-17 INR International Normalized Ratio 2.6 [facility] No Panel Informationon 01-31 INR International Normalized Ratio 3.4 [facility] Absolute lymphocyte countOrd ered By: Dr. Hay on 01-23-2022 Lymphocytes Auto (Unsp spec) [#/Vol] 2.30 10*3/uL 0.83-4.51 [facility] Basophil percentageOrdered B y: Dr. Hay on 01-23-2022 Basophils/100 WBC (Bld) 0.8 % 0-1 [facility] Bilirubin [Mass/Vol] 1.10 mg/dL 0.20-1.00 [facility] Comment on above: For patients on eltr ombopag therapy, use of Dim[place] TBIL is not recommended. Chloride [Moles/Vol] 101 mmol/L 98-107 [facility] Eosinophils/100 WBC (Bld) 3.2 % 0-5 [facility] Glucose [Mass/Vol] 134 mg/dL 74-106 [facility] Comment on above: Fasting Glucose resu lt greater than or equal to 126 mg/dL suggests DIABETES MELLITUS per A.D.A. criteria. Neutrophils (Bld) [#/Vol] 4.6 10*3/uL 2.0-7.7 [facility] Neutrophils/100 WBC (Bld) 58.4 % 47-70 [facility] Potassium [Moles/Vol] 4.8 mmol/L 3.5-5.1 [facility] Protein [Mass/Vol] 7.5 g/dL 6.4-8.2 [facility] Sodium [Moles/Vol] 135 mmol/L 136-145 [facility] WBC (Bld) [#/Vol] 7.9 10*3/uL 4.4-11.0 [facility] Blood erythrocytes count (nu mber/volume)Ordered By: Dr. Hay on 01-23-2022 RBC (Bld) [#/Vol] 4.91 10*6/uL 4.6-6.2 [facility] Blood hemoglobin measurement (mass/volume)Ordered By: Dr. Hay on 01-23-2022 Hemoglobin (Bld) [Mass/Vol] 15.3 g/dL 13.0-16.5 [facility] Blood lymphocytes/100 leukoc ytesOrdered By: Dr. Hay on 01-23-2022 Lymphocytes/100 WBC (Bld) 29.3 % 19-41 [facility] Blood monocytes/100 leukocyt esOrdered By: Dr. Hay on 01-23-2022 Monocytes/100 WBC (Bld) 8.0 % 0-10 [facility] Blood platelet mean volumeOr dered By: Dr. Hay on 01-23-2022 Platelet mean volume (Bld) [Entitic vol] 10.1 fL 6.2-12.0 [facility] Determination of erythrocyte mean corpuscular volume (MCV)Ordered By: Dr. Hay on 01-23-2022 MCV (RBC) [Entitic vol] 91.6 fL 80-94 [facility] Hematocrit Auto (Bld) [Volum e fraction]Ordered By: Dr. Hay on 01-23-2022 Hematocrit (Bld) [Volume fraction] 45.0 % 40-54 [facility] - Chemistry and C hemistry - challengeOrdered By: Dr. Hay on 01-23-2022 ALP [Catalytic activity/Vol] 57 U/L 45-117 [facility] ALT [Catalytic activity/Vol] 64 U/L 16-61 [facility] CO2 [Moles/Vol] 26.0 mmol/L 21.0-32.0 [facility] Globulin (S) [Mass/Vol] 3.5 g/dL 2.2-4.2 [facility] Urea nitrogen/Creatinine [Mass ratio] 10.0 mg/mg 10-20 [facility] - Hematology and Cell countsOrdered By: Dr. Hay on 01-23-2022 Erythrocyte distribution width (RBC) [Entitic vol] 45.0 fL 35.1-43.9 [facility] Erythrocyte distribution width (RBC) [Ratio] 13.3 % 11.6-14.6 [facility] Immature granulocytes/100 WBC (Bld) 0.300 % 0.0-0.9 [facility] Comment on above: IG% - Immature Granu locytes (promyelocytes, myelocytes and metamyelocytes) > 1% indicates that a LEFT SHIFT is Present. MCH (RBC) [Entitic mass] 31.2 pg 27.0-32.0 [facility] Nucleated RBC/100 WBC (Bld) [Ratio] 0 % 0-5 [facility] - Hematology and Cell countson 01-23-2022 HbA1c (Bld) [Mass fraction] 7.6 % 4.2-6.3 [facility] MCHC Auto (RBC) [Mass/Vol]Or dered By: Dr. Hay on 01-23-2022 MCHC (RBC) [Mass/Vol] 34.0 g/dL 32-36 [facility] No Panel InformationOrdered By: Dr. Hay on 01-23-2022 Estimated GFR (MDRD) Amer 64 mL/min >60 [facility] Comment on above: GFR Calc Estimated GFR (MDRD) Non-Af Amer 53 mL/min >60 [facility] Comment on above: Non- GFR Calc Platelets bldOrdered By: Dr. Hay on 01-23-2022 Platelets (Bld) [#/Vol] 232 10*3/uL 150-450 [facility] Serum or plasma albumin musa urement (mass/volume)Ordered By: Dr. Hay on 01-23-2022 Albumin [Mass/Vol] 4.0 g/dL 3.2-5.0 [facility] Serum or plasma albumin/glob ulin mass ratioOrdered By: Dr. Hay on 01-23-2022 Albumin/Globulin [Mass ratio] 1.1 {ratio} 0.9-2.4 [facility] Serum or plasma calcium musa urement (mass/volume)Ordered By: Dr. Hay on 01-23-2022 Calcium [Mass/Vol] 9.5 mg/dL 8.5-10.1 [facility] Serum or plasma creatinine m easurement (mass/volume)Ordered By: Dr. Hay on 01-23-2022 Creatinine [Mass/Vol] 1.40 mg/dL 0.70-1.30 [facility] Comment on above: The validity of the calculated GFR & GFRAA in patients over 70 years has not been determined. Clinical correlation is essential. Serum or plasma urea nitroge n measurement (mass/volume)Ordered By: Dr. Hay on 01-23-2022 Urea nitrogen [Mass/Vol] 14 mg/dL 7-18 [facility] Thin prep Papanicolaou smear with manual screeningOrdered By: Dr. Hay on 01-23-2022 Thin prep Papanicolaou smear with manual screening 35 U/L 15-37 [facility] Thin prep Papanicolaou smear with manual screening 8 5-15 [facility] No Panel Informationon 01-17 INR International Normalized Ratio 3.1 [facility] No Panel Informationon 12-30 INR International Normalized Ratio 2.3 [facility] No Panel Informationon 12-20 INR International Normalized Ratio 1.6 [facility] Work Phone: No Panel Informationon 11-29 INR International Normalized Ratio 2.1 [facility] Work Phone: No Panel Informationon 11-15 INR International Normalized Ratio 2.2 [facility] Work Phone: No Panel Informationon 11-10 INR International Normalized Ratio 1.7 [facility] Work Phone: No Panel Informationon 10-25 INR International Normalized Ratio 1.9 [facility] Work Phone: Basophil percentageon 2021 Chloride [Moles/Vol] 103 mmol/L 98-107 [facility] Work Phone: Glucose [Mass/Vol] 131 mg/dL 74-106 [facility] Work Phone: Comment on above: Fasting Glucose resu lt greater than or equal to 126 mg/dL suggests DIABETES MELLITUS per A.D.A. criteria. Potassium [Moles/Vol] 4.6 mmol/L 3.5-5.1 [facility] Work Phone: Sodium [Moles/Vol] 137 mmol/L 136-145 [facility] Work Phone: Laboratory - Chemistry and C hemistry - challengeon 10-18-2021 CO2 [Moles/Vol] 27.0 mmol/L 21.0-32.0 [facility] Work Phone: Urea nitrogen/Creatinine [Mass ratio] 16.4 mg/mg 10-20 [facility] Work Phone: Laboratory - Hematology and Cell countson 10-18-2021 HbA1c (Bld) [Mass fraction] 6.5 % 4.2-6.3 [facility] Work Phone: No Panel Informationon 10-18 Estimated GFR (MDRD) Amer 53 mL/min >60 [facility] Work Phone: Comment on above: GFR Calc Estimated GFR (MDRD) Non-Af Amer 44 mL/min >60 [facility] Work Phone: Comment on above: Non- GFR Calc Serum or plasma calcium musa urement (mass/volume)on 10-18-2021 Calcium [Mass/Vol] 9.4 mg/dL 8.5-10.1 [facility] Work Phone: Serum or plasma creatinine m easurement (mass/volume)on 10-18-2021 Creatinine [Mass/Vol] 1.65 mg/dL 0.70-1.30 [facility] Work Phone: Comment on above: The validity of the calculated GFR & GFRAA in patients over 70 years has not been determined. Clinical correlation is essential. Serum or plasma urea nitroge n measurement (mass/volume)on 10-18-2021 Urea nitrogen [Mass/Vol] 27 mg/dL 7-18 [facility] Work Phone: Thin prep Papanicolaou smear with manual screeningon 10-18-2021 Thin prep Papanicolaou smear with manual screening 7 5-15 [facility] Work Phone: No Panel Informationon 10-11 INR International Normalized Ratio 2.1 [facility] Work Phone: No Panel Informationon 09-27 INR International Normalized Ratio 2.2 [facility] Work Phone: No Panel Informationon 09-13 INR International Normalized Ratio 2.8 [facility] Work Phone: No Panel Informationon 09-03 INR International Normalized Ratio 2.5 [facility] Work Phone: No Panel Informationon 08-16 INR International Normalized Ratio 2.6 [facility] Work Phone: CNPNon 08-05-2021 CNPN Telephone (INTMWS) -- EDUARD LEOS ([id number]) 1945 M Date Time Provider Department 08/05/21 NO PCP INTMWS During your visit today, we recorded the following information about you: Fanny Covington, YOGESH 08/05/2021 1:09 PM [facility] called in trying to get a refill for Pt. Had to notify them that Pt is no longer with a provider at our facility. They report they took us out of their system as his provider. Allergies As of Date: 08/05/2021 Noted Allergy Reaction AMIODARONE 02/17/2018 14 - Other: See Comments Comments: Pulmonary fibrosis CLAMS 12/18/2020 14 - Other: See Comments GEMFIBROZIL 02/26/2009 5 - Intolerance Comments: Upset stomach; constipation NEXIUM (ESOMEPRAZOLE MAGNESIUM) 01/26/2017 8 - GI Upset Date Reviewed: 12/18/2020 Reviewed by: Lona Jeronimo Ma - Fully Assessed Reason for Visit: Refill Request [94] Patient Update [1234] Prescriptions as of 08/05/2021 - pantoprazole DR (PROTONIX) 40 mg tablet Take 1 tablet by mouth twice daily. - cyclobenzaprine (FLEXERIL) 10 mg tablet Take 1 tablet by mouth three times daily as needed for muscle spasm. - atorvastatin (LIPITOR) 40 mg tablet Take 1 tablet by mouth once daily. - sacubitril-valsartan (ENTRESTO) 49-51 mg tablet Take 1 tablet by mouth twice daily. ([place]) - spironolactone (ALDACTONE) 25 mg tablet Take 1 tablet by mouth twice daily. ([place]) - metFORMIN (GLUCOPHAGE) 500 mg tablet Take 1 tablet by mouth daily with breakfast. - Lactobac no.41/Bifidobact no.7 (PROBIOTIC-10 ORAL) Take by mouth. - traZODone (DESYREL) 50 mg tablet Take 1 tablet by mouth daily at bedtime. - famotidine (PEPCID) 20 mg tablet Take 1 tablet by mouth at bedtime as needed. - loperamide HCl (IMODIUM A-D) 2 mg tab Take 1 tablet by mouth as needed. for 3 or more BMs per day - metoprolol succinate ER (TOPROL XL) 50 mg 24 hr tablet Take 1 tablet by mouth once daily. Dr. Odom - furosemide (LASIX) 40 mg tablet Take 1.5 tablets by mouth twice daily. - potassium chloride SR (MICRO-K) 10 mEq CR capsule Take 2 capsules by mouth twice daily. - warfarin (COUMADIN) 5 mg tablet Take 1 tablet by mouth once daily. - warfarin (COUMADIN) 7.5 mg tablet Take 1 tablet by mouth once daily. - COMPOUNDED PRESCRIPTION Oxygen 2-3 L by nasal cannula. Diagnosis hypoxia, systolic heart failure. Pulse oximetry at rest: Pulse oximetry with ambulation: Pulse oximetry with oxygen and ambulation: - ACETAMINOPHEN (TYLENOL EXTRA STRENGTH ORAL) Take 1,000 mg by mouth once daily. As needed - COMPOUNDED PRESCRIPTION [facility] S/P ablation for INR checks, assessment and eval of VS, HF and coumadin teaching. Eval for PT. Dx; cardiomyopathy, ID, arrhythmia, CAD, anticoagulation. - COMPOUNDED PRESCRIPTION [facility] S/P ablation for VT. Pt requires INR, assessment and eval VS, coumadin and HF teaching. Dx: Cardiomyopathy, ID, ventricular arrhythmia, CAD, anticoagulation. - magnesium oxide (MAG-OX) 400 mg tablet 1 tablet twice weekly - aspirin, enteric coated (ECOTRIN LOW STRENGTH) 81 mg EC tablet Take 1 tablet by mouth once daily. Meds Comments as of 06/04/2012: Problem List As Of Date 08/05/2021 Noted Resolved LUMBAGO [M54.50] 10/15/2005 SCIATICA [M54.30] 10/15/2005 CARPAL TUNNEL SYNDROME [G56.00] 01/09/2006 04/05/2007 LATERAL EPICONDYLITIS [M77.10] 01/09/2006 04/05/2007 JOINT PAIN-JOINT NEC [M25.59] 04/05/2007 Mixed hyperlipidemia [E78.2] 12/21/2007 History of cerebral infarction [Z86.73] 02/21/2009 Essential hypertension [I10] 02/26/2009 Impaired fasting glucose [R73.01] 02/26/2009 02/18/2021 Brain tumor (HCC) [D49.6] 02/26/2009 12/14/2020 Pain in Joint, Pelvic Region and Thigh [M25.559]06/12/2009 Coronary atherosclerosis [I25.10] Ischemic dilated cardiomyopathy (HCC) [I25.5, I* S/P coronary artery stent placement [Z95.5] 03/31/2013 GERD (gastroesophageal reflux disease) [K21.9] 04/10/2014 Presence of stent in LAD coronary artery [Z95.5]04/30/2015 ICD (implantable cardioverter-defibrillator ) di*07/10/2015 Paroxysmal atrial fibrillation (HCC) [I48.0] 07/10/2015 VT (ventricular tachycardia) (HCC) [I47.2] 07/24/2015 12/14/2020 Renal insufficiency [N28.9] 07/24/2015 Chronic anticoagulation [Z79.01] 10/23/2015 Encounter for monitoring anti-arrhythmic therap*10/23/2015 12/14/2020 Dyspepsia [R10.13] 01/27/2017 12/14/2020 Nausea [R11.0] 01/27/2017 12/14/2020 Epigastric abdominal pain [R10.13] 01/27/2017 Unilateral inguinal hernia without obstruction *02/18/2017 Right groin pain [R10.31] 03/27/2017 Right testicular pain [N50.811] 03/27/2017 Umbilical hernia without obstruction or gangren*03/27/2017 Personal history of ventricular tachycardia [Z8*04/20/2017 Choledocholithiasis [K80.50] 05/01/2017 Right upper quadrant pain [R10.11] 05/01/2017 Liver cyst [K76.89] 05/01/2017 Kidney cysts [N28.1] 05/01/2017 Lung nodu (more content not included)... Normal [facility] No Panel Informationon 08-02 INR International Normalized Ratio 2.3 [facility] Work Phone: No Panel Informationon 07-19 INR International Normalized Ratio 2.1 [facility] Work Phone: Laboratory - Hematology and Cell countson 07-17-2021 HbA1c (Bld) [Mass fraction] 7.6 % 4.2-6.3 [facility] Work Phone: No Panel Informationon 07-05 INR International Normalized Ratio 2.4 [facility] Work Phone: Glucose Glucometer (dC) [M ass/Vol]on 07-04-2021 Glucose [Mass/Vol] 130 mg/dL 74-106 [facility] Work Phone: Comment on above: MANAGEMENT OF PATIEN T CARE PER NURSING PROTOCOL Laboratory - Coagulationon 0 07-04-2021 INR Coag (Bld) [Relative time] 2.4 {INR} [facility] Work Phone: Comment on above: Critical Value > 4.0 Whole blood prothrombin time on 07-04-2021 PT Coag (Bld) [Time] 28.2 s 11.7-14.9 [facility] Work Phone: No Panel Informationon 06-25 INR International Normalized Ratio 2.7 [facility] Work Phone: Basophil percentageon 2021 Basophil percentage 0-5 SEEN /hpf 0-5 [facility] Work Phone: Chloride [Moles/Vol] 98 mmol/L 98-[address] [facility] Work Phone: [phone] Glucose [Mass/Vol] 130 mg/dL 74-106 [facility] Work Phone: Comment on above: Fasting Glucose resu lt greater than or equal to 126 mg/dL suggests DIABETES MELLITUS per A.D.A. criteria. Potassium [Moles/Vol] 4.4 mmol/L 3.5-5.1 [address] [facility] Work Phone: [phone] Sodium [Moles/Vol] 134 mmol/L 136-145 [facility] Work Phone: [phone] WBC (Bld) [#/Vol] 10.1 10*3/uL 4.4-11.0 [facility] Work Phone: Bilirubin Test strip Ql (U)o n 06-17-2021 Bilirubin Ql (U) Negative Negative [facility] Work Phone: Blood erythrocytes count (nu mber/volume)on 06-17-2021 RBC (Bld) [#/Vol] 5.02 10*6/uL 4.6-6.2 [facility] Work Phone: Blood hemoglobin measurement (mass/volume)on 06-17-2021 Hemoglobin (Bld) [Mass/Vol] 15.8 g/dL 13.0-16.5 [facility] Work Phone: [phone] Blood platelet mean volumeon 06-17-2021 Platelet mean volume (Bld) [Entitic vol] 10.0 fL 6.2-12.0 [facility] Work Phone: Determination of erythrocyte mean corpuscular volume (MCV)on 06-17-2021 MCV (RBC) [Entitic vol] 94.0 fL 80-94 [facility] Work Phone: Hematocrit Auto (Bld) [Volum e fraction]on 06-17-2021 Hematocrit (Bld) [Volume fraction] 47.2 % 40-54 [facility] Work Phone: Ketones Test strip Ql (U)on 06-17-2021 Ketones Ql (U) Negative Negative [facility] Work Phone: Laboratory - Chemistry and C hemistry - challengeon 06-17-2021 CO2 [Moles/Vol] 27.0 mmol/L 21.0-32.0 [facility] Work Phone: Natriuretic peptide B (Bld) [Mass/Vol] 23.9 pg/mL 0-100 [facility] Work Phone: Urea nitrogen/Creatinine [Mass ratio] 13.4 mg/mg 10-20 [facility] Work Phone: Laboratory - Coagulationon 0 06-17-2021 PT Coag (PPP) [Time] 22.5 s 11.7-14.9 [facility] Work Phone: Laboratory - Hematology and Cell countson 06-17-2021 Erythrocyte distribution width (RBC) [Entitic vol] 46.4 fL 35.1-43.9 [facility] Work Phone: Erythrocyte distribution width (RBC) [Ratio] 13.4 % 11.6-14.6 [facility] Work Phone: MCH (RBC) [Entitic mass] 31.5 pg 27.0-32.0 [facility] Work Phone: MCHC Auto (RBC) [Mass/Vol]on 06-17-2021 MCHC (RBC) [Mass/Vol] 33.5 g/dL 32-36 [facility] Work Phone: Mucus LM Ql (Urine sed)on Mucus Ql (Urine sed) 0 SEEN /hpf [facility] Work Phone: Nitrite Test strip Ql (U)on 06-17-2021 Nitrite Ql (U) Negative Negative [facility] Work Phone: No Panel Informationon 06-17 Estimated GFR (MDRD) Amer 50 mL/min >60 [facility] Work Phone: Comment on above: GFR Calc Estimated GFR (MDRD) Non-Af Amer 42 mL/min >60 [facility] Work Phone: Comment on above: Non- GFR Calc Platelets bldon 06-17-2021 Platelets (Bld) [#/Vol] 263 10*3/uL 150-450 [facility] Work Phone: Protein Test strip Ql (U)on 06-17-2021 Protein Ql (U) Negative Negative [facility] Work Phone: Serum or plasma calcium musa urement (mass/volume)on 06-17-2021 Calcium [Mass/Vol] 9.9 mg/dL 8.5-10.1 [facility] Work Phone: Serum or plasma creatinine m easurement (mass/volume)on 06-17-2021 Creatinine [Mass/Vol] 1.72 mg/dL 0.70-1.30 [facility] Work Phone: Comment on above: The validity of the calculated GFR & GFRAA in patients over 70 years has not been determined. Clinical correlation is essential. Serum or plasma urea nitroge n measurement (mass/volume)on 06-17-2021 Urea nitrogen [Mass/Vol] 23 mg/dL 7-18 [facility] Work Phone: Squamous epithelial cells de tection in urine sediment by light microscopyon 06-17-2021 Epithelial cells.squamous LM Ql (Urine sed) 0-5 SEEN /hpf 0-5 [facility] Work Phone: Thin prep Papanicolaou smear with manual screeningon 06-17-2021 Thin prep Papanicolaou smear with manual screening 9 5-15 [facility] Work Phone: Urine blood detectionon RBC Ql (U) Negative Negative [facility] Work Phone: RBC Ql (U) 0-5 SEEN /hpf 0-5 [facility] Work Phone: Urine clarityon 06-17-2021 Clarity (U) Clear Clear [facility] Work Phone: Urine color determinationon 06-17-2021 Color (U) Yellow Yellow [facility] Work Phone: Urine glucose detectionon Glucose Ql (U) Normal mg/dl Normal [facility] Work Phone: Urine leukocyte esterase det ection by dipstickon 06-17-2021 Leukocyte esterase Test strip Ql (U) Negative Negative [facility] Work Phone: Urine pHon 06-17-2021 pH (U) 6.0 [pH] 5.0 - 8.0 [facility] Work Phone: Urine sediment bacteria coun t by microscopy (number/high power field)on 06-17-2021 Bacteria LM.HPF (Urine sed) [#/Area] 1 /[HPF] None Seen [facility] Work Phone: Urine specific gravity measu rementon 06-17-2021 Specific gravity (U) [Rel density] 1.015 1.002-1.03 0 [facility] Work Phone: Urobilinogen Auto test strip Ql (U)on 06-17-2021 Urobilinogen Ql (U) Normal mg/dl Normal [facility] Work Phone: No Panel Informationon 06-14 INR International Normalized Ratio 2.3 [facility] Work Phone: No Panel Informationon 06-07 INR International Normalized Ratio 1.6 [facility] Work Phone: Basophil percentageon 2021 Chloride [Moles/Vol] 101 mmol/L 98-[address] [facility] Work Phone: Glucose [Mass/Vol] 209 mg/dL 74-[address] [facility] Work Phone: Comment on above: Glucose result great er than or equal to 200 mg/dLsuggests DIABETES MELLITUS per A.D.A. criteria. Potassium [Moles/Vol] 4.3 mmol/L 3.5-5.1 [facility] Work Phone: Sodium [Moles/Vol] 135 mmol/L 136-145 [facility] Work Phone: Laboratory - Chemistry and C hemistry - challengeon 06-05-2021 CO2 [Moles/Vol] 26.0 mmol/L 21.0-32.0 [facility] Work Phone: Urea nitrogen/Creatinine [Mass ratio] 12.2 mg/mg 10-20 [facility] Work Phone: No Panel Informationon 06-05 Estimated GFR (MDRD) Amer 60 mL/min >60 [facility] Work Phone: Comment on above: GFR Calc Estimated GFR (MDRD) Non-Af Amer 50 mL/min >60 [facility] Work Phone: Comment on above: Non- GFR Calc Serum or plasma calcium musa urement (mass/volume)on 06-05-2021 Calcium [Mass/Vol] 9.6 mg/dL 8.5-10.1 [facility] Work Phone: Serum or plasma creatinine m easurement (mass/volume)on 06-05-2021 Creatinine [Mass/Vol] 1.47 mg/dL 0.70-1.30 [facility] Work Phone: Comment on above: The validity of the calculated GFR & GFRAA in patients over 70 years has not been determined. Clinical correlation is essential. Serum or plasma urea nitroge n measurement (mass/volume)on 06-05-2021 Urea nitrogen [Mass/Vol] 18 mg/dL 7-18 [facility] Work Phone: Thin prep Papanicolaou smear with manual screeningon 06-05-2021 Thin prep Papanicolaou smear with manual screening 8 5-15 [facility] Work Phone: No Panel Informationon 05-31 INR International Normalized Ratio 1.5 [facility] Work Phone: No Panel Informationon 05-17 INR International Normalized Ratio 1.8 [facility] Work Phone: No Panel Informationon 05-03 INR International Normalized Ratio 2.3 [facility] Work Phone: Basophil percentageon 2021 Basophil percentage 0 SEEN /hpf 0-5 [facility] Work Phone: Bilirubin Test strip Ql (U)o n 05-02-2021 Bilirubin Ql (U) Negative Negative [facility] Work Phone: Ketones Test strip Ql (U)on 05-02-2021 Ketones Ql (U) Negative Negative [facility] Work Phone: Mucus LM Ql (Urine sed)on Mucus Ql (Urine sed) 0 SEEN /hpf [facility] Work Phone: Nitrite Test strip Ql (U)on 05-02-2021 Nitrite Ql (U) Negative Negative [facility] Work Phone: Protein Test strip Ql (U)on 05-02-2021 Protein Ql (U) Negative Negative [facility] Work Phone: Squamous epithelial cells de tection in urine sediment by light microscopyon 05-02-2021 Epithelial cells.squamous LM Ql (Urine sed) 0-5 SEEN /hpf 0-5 [facility] Work Phone: Urine blood detectionon 04-10 RBC Ql (U) Negative Negative [facility] Work Phone: RBC Ql (U) 0 SEEN /hpf 0-5 [facility] Work Phone: Urine clarityon 05-02-2021 Clarity (U) Clear Clear [facility] Work Phone: Urine color determinationon 05-02-2021 Color (U) Yellow Yellow [facility] Work Phone: Urine glucose detectionon Glucose Ql (U) 1000 mg/dl Normal [facility] Work Phone: Urine leukocyte esterase det ection by dipstickon 05-02-2021 Leukocyte esterase Test strip Ql (U) Negative Negative [facility] Work Phone: [phone] Urine pHon 05-02-2021 pH (U) 5.0 [pH] 5.0 - 8.0 [facility] Work Phone: [phone] Urine sediment bacteria coun t by microscopy (number/high power field)on 05-02-2021 Bacteria LM.HPF (Urine sed) [#/Area] 0 /[HPF] None Seen [facility] Work Phone: Urine specific gravity measu rementon 05-02-2021 Specific gravity (U) [Rel density] 1.020 1.002-1.03 0 [facility] Work Phone: [phone] Urobilinogen Auto test strip Ql (U)on 05-02-2021 Urobilinogen Ql (U) Normal mg/dl Normal [facility] Work Phone: [phone] Absolute lymphocyte counton 04-30-2021 Lymphocytes Auto (Unsp spec) [#/Vol] 2.14 10*3/uL 0.83-4.51 [facility] Work Phone: [phone] Basophil percentageon 2021 Basophils/100 WBC (Bld) 0.4 % 0-1 [facility] Work Phone: [phone] Bilirubin [Mass/Vol] 1.50 mg/dL 0.20-1.00 [facility] Work Phone: [phone] Comment on above: For patients on eltr ombopag therapy, use of Dimension [place] TBIL is not recommended. Chloride [Moles/Vol] 95 mmol/L 98-107 [facility] Work Phone: [phone] Eosinophils/100 WBC (Bld) 1.0 % 0-5 [facility] Work Phone: [phone] Glucose [Mass/Vol] 362 mg/dL 74-106 [facility] Work Phone: [phone] Comment on above: Glucose result great er than or equal to 200 mg/dLsuggests DIABETES MELLITUS per A.D.A. criteria. Neutrophils (Bld) [#/Vol] 5.9 10*3/uL 2.0-7.7 [facility] Work Phone: Neutrophils/100 WBC (Bld) 65.9 % 47-70 [facility] Work Phone: Potassium [Moles/Vol] 4.7 mmol/L 3.5-5.1 [facility] Work Phone: Protein [Mass/Vol] 7.9 g/dL 6.4-8.2 [facility] Work Phone: Sodium [Moles/Vol] 129 mmol/L 136-145 [facility] Work Phone: WBC (Bld) [#/Vol] 9.0 10*3/uL 4.4-11.0 [facility] Work Phone: Blood erythrocytes count (nu mber/volume)on 04-30-2021 RBC (Bld) [#/Vol] 5.20 10*6/uL 4.6-6.2 [facility]: Blood hemoglobin measurement (mass/volume)on 04-30-2021 Hemoglobin (Bld) [Mass/Vol] 16.7 g/dL 13.0-16.5 [facility] Work Phone: Blood lymphocytes/100 leukoc yteson 04-30-2021 Lymphocytes/100 WBC (Bld) 23.8 % 19-41 [facility] Work Phone: Blood monocytes/100 leukocyt eson 04-30-2021 Monocytes/100 WBC (Bld) 8.6 % 0-10 [facility] Work Phone: Blood platelet mean volumeon 04-30-2021 Platelet mean volume (Bld) [Entitic vol] 10.6 fL 6.2-12.0 [facility] Work Phone: Determination of erythrocyte mean corpuscular volume (MCV)on 04-30-2021 MCV (RBC) [Entitic vol] 92.5 fL 80-94 [facility] Work Phone: Erythrocyte sedimentation ra lorrie 03-22-2022 ESR (Bld) [Velocity] 9 mm/h 0-[facility]: Hematocrit Auto (Bld) [Volum e fraction]on 04-30-2021 Hematocrit (Bld) [Volume fraction] 48.1 % 40-54 [facility] Work Phone: Laboratory - Chemistry and C hemistry - challengeon 04-30-2021 ALP [Catalytic activity/Vol] 108 U/L 45-117 [facility] Work Phone: [phone] ALT [Catalytic activity/Vol] 53 U/L 16-61 [facility] Work Phone: CO2 [Moles/Vol] 29.0 mmol/L 21.0-32.0 [facility] Work Phone: Free T4 [Mass/Vol] 1.07 ng/dL 0.76-1.46 [facility] Work Phone: Globulin (S) [Mass/Vol] 4.0 g/dL 2.2-4.2 [facility] Work Phone: [phone] Urea nitrogen/Creatinine [Mass ratio] 10.5 mg/mg 10-20 [facility] Work Phone: Laboratory - Hematology and Cell countson 04-30-2021 Erythrocyte distribution width (RBC) [Entitic vol] 44.1 fL 35.1-43.9 [facility] Work Phone: Erythrocyte distribution width (RBC) [Ratio] 13.0 % 11.6-14.6 [facility] Work Phone: Immature granulocytes/100 WBC (Bld) 0.300 % 0.0-0.9 [facility] Work Phone: Comment on above: IG% - Immature Granu locytes (promyelocytes, myelocytes and metamyelocytes) > 1% indicates that a LEFT SHIFT is Present. MCH (RBC) [Entitic mass] 32.1 pg 27.0-32.0 [facility] Work Phone: Nucleated RBC/100 WBC (Bld) [Ratio] 0 % 0-5 [facility] Work Phone: MCHC Auto (RBC) [Mass/Vol]on 04-30-2021 MCHC (RBC) [Mass/Vol] 34.7 g/dL 32-36 [facility] Work Phone: No Panel Informationon 04-30 Estimated GFR (MDRD) Amer 58 mL/min >60 [facility] Work Phone: Comment on above: GFR Calc Estimated GFR (MDRD) Non-Af Amer 48 mL/min >60 [facility] Work Phone: Comment on above: Non- GFR Calc Prostate Specific Antigen Screen 0.60 ng/mL 0.00-4.00 [facility] Work Phone: Comment on above: This test was perfor med using the TPSA assay method for [employer] chemistry system. Values obtained with differentassay methods cannot be used interchangably.When changing PSA assays in the course of monitoring apatient, additional sequential testing should be carriedout to confirm baseline values. Thyroid Stimulating Hormone (TSH) 1.56 uIU/mL 0.358-3.74 [facility] Work Phone: Platelets bldon 04-30-2021 Platelets (Bld) [#/Vol] 264 10*3/uL 150-450 [facility] Work Phone: Serum or plasma albumin musa urement (mass/volume)on 04-30-2021 Albumin [Mass/Vol] 3.9 g/dL 3.2-5.0 [facility] Work Phone: Serum or plasma albumin/glob ulin mass ratioon 04-30-2021 Albumin/Globulin [Mass ratio] 1.0 {ratio} 0.9-2.4 [facility] Work Phone: Serum or plasma calcium musa urement (mass/volume)on 04-30-2021 Calcium [Mass/Vol] 9.1 mg/dL 8.5-10.1 [facility] Work Phone: Serum or plasma creatinine m easurement (mass/volume)on 04-30-2021 Creatinine [Mass/Vol] 1.52 mg/dL 0.70-1.30 [facility] Work Phone: Comment on above: The validity of the calculated GFR & GFRAA in patients over 70 years has not been determined. Clinical correlation is essential. Serum or plasma urea nitroge n measurement (mass/volume)on 04-30-2021 Urea nitrogen [Mass/Vol] 16 mg/dL 7-18 [facility] Work Phone: Thin prep Papanicolaou smear with manual screeningon 04-30-2021 Thin prep Papanicolaou smear with manual screening 31 U/L 15-37 [facility] Work Phone: Thin prep Papanicolaou smear with manual screening 5 5-15 [facility] Work Phone: Whole blood hemoglobin A1c/t otal hemoglobin ratio (mass fraction)on 04-30-2021 HbA1c (Bld) [Mass fraction] 11.5 % 3.8-5.6 [facility] Work Phone: Comment on above: Normal < 5.7 % Predi abetic 5.7 - 6.4 % Diabetic >or= 6.5 % Please note range changes. No Panel Informationon 04-19 INR International Normalized Ratio 2.6 [facility] Work Phone: No Panel Informationon 03-18 INR International Normalized Ratio 2.4 [facility] Work Phone: No Panel Informationon 02-13 INR International Normalized Ratio 2.4 [facility] Work Phone: No Panel Informationon 01-11 INR International Normalized Ratio 2.1 [facility] Work Phone: CNOVon 12-18-2020 CNOV Office Visit (INTMWS ) -- EDUARD LEOS ([id number]) 1945 M Date Time Provider Department 12/18/20 2:40 PM NIDIA GEIGER INTTEENA During your visit today, we recorded the following information about you: Pulse Respiration Blood pressure Weight 84/minute 18/minute 100/62 104.3 kg Nidia Geiger MD 02/18/2021 12:30 AM Signed This note was created using [email or web address]. Subjective Eduard Leos is a 75 year old male. Patient presents with: F/U 6 months SUBJECTIVE: Eduard Leos is a 75 year old year old gentleman here today for 6 month follow up appointment for review of medical conditions. Cyst on right temporal area. Sent to ENT. They wee able to express drainage. He was able to express a couple times a day. Will follow up with ENT as needed. Back pain issues again. Flexeril does help with taking at bedtime so can help sleep. Able to go back to sleep after having nocturia. Has to sit back down after a minute or so. Diclofenac gel was given--not sure if helping. Was not able to apply and not able to help. Pulse ox stays in 90s. Does not drop with activity. HR goes up. Uses walker with seat so can sit as needed. Noted HgA1C up from last time. No more pop than usual. Activity less though. PAST MEDICAL HISTORY Diagnosis Date - Abdominal pain, right upper quadrant 12/03/2018 - Anemia, unspecified 12/03/2018 - Brain Tumor 02/26/2009 benign per evaluation at [facility] - Coronary atherosclerosis of unspecified type of vessel, [place] or graft coumadin managed by cardiology (Dr. Johnston) - CVA (Cerebral Infarction) 02/21/2009 - HYPERLIPIDEMIA NEC/NOS 12/21/2007 - Impaired Fasting Glucose 02/26/2009 - Ischemic dilated cardiomyopathy (HCC) LV EF 30% (most recent echo 06/08/2012) - JOINT PAIN-JOINT NEC 04/05/2007 - LUMBAGO 10/15/2005 - Nausea - Obese - Renal insufficiency, mild - SCIATICA 10/15/2005 - Skin cancer 1988 Non-melanoma. - Unspecified Essential Hypertension 02/26/2009 Current Outpatient Medications Medication Sig - cyclobenzaprine (FLEXERIL) 10 mg tablet Take 0.5-1 tablets by mouth twice daily as needed for muscle spasm. - Lactobac no.41/Bifidobact no.7 (PROBIOTIC-10 ORAL) Take by mouth. - traZODone (DESYREL) 50 mg tablet Take 1 tablet by mouth daily at bedtime. - famotidine (PEPCID) 20 mg tablet Take 1 tablet by mouth at bedtime as needed. - pantoprazole DR (PROTONIX) 40 mg tablet Take 1 tablet by mouth twice daily. - loperamide HCl (IMODIUM A-D) 2 mg tab Take 1 tablet by mouth as needed. for 3 or more BMs per day - metoprolol succinate ER (TOPROL XL) 50 mg 24 hr tablet Take 1 tablet by mouth once daily. Dr. Odom - furosemide (LASIX) 40 mg tablet Take 1.5 tablets by mouth twice daily. - potassium chloride SR (MICRO-K) 10 mEq CR capsule Take 2 capsules by mouth twice daily. - spironolactone (ALDACTONE) 25 mg tablet Take 1 tablet by mouth twice daily. - atorvastatin (LIPITOR) 40 mg tablet Take 1 tablet by mouth once daily. - warfarin (COUMADIN) 7.5 mg tablet Take 1 tablet by mouth once daily. - sacubitril-valsartan (ENTRESTO) 49-51 mg tablet Take 1 tablet by mouth twice daily. - ACETAMINOPHEN (TYLENOL EXTRA STRENGTH ORAL) Take 1,000 mg by mouth once daily. As needed - magnesium oxide (MAG-OX) 400 mg tablet 1 tablet twice weekly (Patient taking differently: 1 tablet three times weekly ) - aspirin, enteric coated (ECOTRIN LOW STRENGTH) 81 mg EC tablet Take 1 tablet by mouth once daily. - ondansetron (ZOFRAN) 4 mg tablet Take 1 tablet by mouth once daily as needed. for nausea (Patient not taking: Reported on 10/26/2020 ) - warfarin (COUMADIN) 5 mg tablet Take 1 tablet by mouth once daily. (Patient taking differently: Take 5 mg by mouth once daily. 7.5 mg Thursday and Thursday, 5 mg all other days ) - COMPOUNDED PRESCRIPTION Oxygen 2-3 L by nasal cannula. Diagnosis hypoxia, systolic heart failure. Pulse oximetry at rest: Pulse oximetry with ambulation: Pulse oximetry with oxygen and ambulation: (Patient taking differently: Oxygen 2-3 L by nasal cannula. Diagnosis hypoxia, systolic heart failure. Pulse oximetry at rest: Pulse oximetry with ambulation: Pulse oximetry with oxygen and ambulation: Pt reported mostly using PM ) - COMPOUNDED PRESCRIPTION [facility] S/P ablation for INR checks, assessment and eval of VS, HF and coumadin teaching. Eval for PT. Dx; cardiomyopathy, ID, arrhythmia, CAD, anticoagulation. - COMPOUNDED PRESCRIPTION S/P ablation for VT. Pt requires INR, assessment and eval VS, coumadin and HF teaching. Dx: Cardiomyopathy, ID, ventricular arrhythmia, CAD, anticoagulation. No current facility-administered medications for this visit. Review of Systems Objective BP 100/62 Pulse 84 Resp 18 Wt 104.3 kg (230 lb) BMI 33.97 kg/m? Physical Exam Vitals reviewed. Constitutional: Appearance: Normal appearan (more content not included)... Normal [facility] Albumin/Creat Ratioon 2020 Albumin Urine Random <12.0 Normal [facility] Comment on above: Performed By: #### U ACR ####[address] [phone] Albumin/Creat Ratio Not calculated Normal <30 [facility] Comment on above: Performed By: #### U ACR ####[address] [phone] Creatinine,Urine,Ran 41.3 mg/dL Normal 20-300 [facility] Comment on above: Performed By: #### U ACR ####[id number] [place], [place] [phone] Comp Metabolic Panelon 12-13 Albumin [Mass/Vol] 4.3 g/dL Normal 3.9-4.9 [facility] Comment on above: Performed By: #### L IPNF, PSAS1, HBA1C, CMP ####[address] [phone] ALP [Catalytic activity/Vol] 82 U/L Normal 38-113 [facility] Comment on above: Performed By: #### L IPNF, PSAS1, HBA1C, CMP ####[place] [id number] [place], [place] [phone] ALT [Catalytic activity/Vol] 43 U/L Normal 10-54 [facility] Comment on above: Performed By: #### L IPNF, PSAS1, HBA1C, CMP ####[place] [address] [address], [place] [phone] Anion gap [Moles/Vol] 14 mmol/L Normal 9-18 [facility] Comment on above: Performed By: #### L IPNF, PSAS1, HBA1C, CMP ####[address] [phone] AST [Catalytic activity/Vol] 37 U/L Normal 14-40 [facility] Comment on above: Performed By: #### L IPNF, PSAS1, HBA1C, CMP ####[address] [phone] Bilirubin [Mass/Vol] 1.4 mg/dL High 0.2-1.3 [facility] Comment on above: Performed By: #### L IPNF, PSAS1, HBA1C, CMP ####[address] [phone] Calcium [Mass/Vol] 9.9 mg/dL Normal 8.5-10.2 [facility] Comment on above: Performed By: #### L IPNF, PSAS1, HBA1C, CMP ####[place] [address] [address], [place] [phone] Chloride [Moles/Vol] 97 mmol/L Normal 97-105 [facility] Comment on above: Performed By: #### L IPNF, PSAS1, HBA1C, CMP ####[place] [address] [address] [place], [place] [phone] CO2 [Moles/Vol] 24 mmol/L Normal 22-30 [facility] Comment on above: Performed By: #### L IPNF, PSAS1, HBA1C, CMP ####[facility], [place] [phone] Creatinine [Mass/Vol] 1.29 mg/dL High 0.73-1.22 [facility] Comment on above: Performed By: #### L IPNF, PSAS1, HBA1C, CMP ####[place] [address] [address], [place] [phone] eGFR- Amer. >60 Normal [facility] Comment on above: Performed By: #### L IPNF, PSAS1, HBA1C, CMP ####[facility], [place] [phone] eGFR-All Other Races 55 . Normal [facility] Comment on above: Result Comment: eGFR (Estimated GFR) Units of measure: mL/min/1.73 meters squared eGFR is derived from the reexpressed MDRD Study equation using the following parameters: serum creatinine, age, gender and race. The creatinine assay has been calibrated to be traceable to IDMS. An eGFR <60 mL/min/1.73m2 for >3 months is consistent with chronic kidney disease. Refer to KDOQI guidelines for clinical interpretation. In patients with unstable renal function, e.g. those with acute kidney injury, the eGFR may not accurately reflect actual GFR. Performed By: #### L IPNF, PSAS1, HBA1C, CMP ####[facility] [place], [place] [phone] Glucose [Mass/Vol] 238 mg/dL High 74-99 [facility] Comment on above: Result Comment: The [place] Diabetes Association (ADA) provides guidance for cutoff values for fasting glucose and random glucose. The ADA defines fasting as no caloric intake for at least 8 hours. Fasting plasma glucose results between 100 to 125 mg/dL indicate increased risk for diabetes (prediabetes). Fasting plasma glucose results greater than or equal to 126 mg/dL meet the criteria for diagnosis of diabetes. In the absence of unequivocal hyperglycemia, results should be confirmed by repeat testing. In a patient with classic symptoms of hyperglycemia or hyperglycemic crisis, random plasma glucose results greater than or equal to 200 mg/dL meet the criteria for diagnosis of diabetes. Reference: Standards of Medical Care in Diabetes 2016, [place] Diabetes Association. Diabetes Care. 2016.39(Suppl 1). Performed By: #### L IPNF, PSAS1, HBA1C, CMP ####[place] [phone] Potassium [Moles/Vol] 4.8 mmol/L Normal 3.7-5.1 [facility] Comment on above: Performed By: #### L IPNF, PSAS1, HBA1C, CMP ####[address] [phone] Protein [Mass/Vol] 7.2 g/dL Normal 6.3-8.0 [facility] Comment on above: Performed By: #### L IPNF, PSAS1, HBA1C, CMP ####[address] [phone] Sodium [Moles/Vol] 135 mmol/L Low 136-144 [facility] Comment on above: Performed By: #### L IPNF, PSAS1, HBA1C, CMP ####[address] [phone] Urea nitrogen [Mass/Vol] 15 mg/dL Normal 9-24 [facility] Comment on above: Performed By: #### L IPNF, PSAS1, HBA1C, CMP ####[address] [phone] Hemoglobin A1con 12-13-2020 Glucose [Mass/Vol] 194 mg/dL Normal [facility] Comment on above: Result Comment: eAG: (Estimated average glucose) is a calculated value from HgbA1c and is insurance verification representative of the average blood glucose level in the last 2-3 month period. Performed By: #### L IPNF, PSAS1, HBA1C, CMP ####[place] [address] [address], [place] [phone] HbA1c (Bld) [Mass fraction] 8.4 % High 4.3-5.6 [facility] Comment on above: Result Comment: [place] Diabetes Association guidelines indicate that patients with HgbA1c in the range 5.7-6.4% are at increased risk for development of diabetes, and intervention by lifestyle modification may be beneficial. HgbA1c greater or equal to 6.5% is considered diagnostic of diabetes. Performed By: #### L IPNF, PSAS1, HBA1C, CMP ####[address] [phone] Lipid Panel, Nonfaston 12-13 Cholesterol [Mass/Vol] 171 mg/dL Normal <200 [facility] Comment on above: Result Comment: <200 mg/dL, Desirable 200-239 mg/dL, Borderline high >239 mg/dL, High Performed By: #### L IPNF, PSAS1, HBA1C, CMP ####[address] [phone] HDL Cholesterol, NF 37 mg/dL Low >[address] [facility] Comment on above: Result Comment: 40-5 9 mg/dL, Acceptable >59 mg/dL, High: Negative risk factor for coronary heart disease <40 mg/dL, Low: Positive risk factor for coronary heart disease Performed By: #### L IPNF, PSAS1, HBA1C, CMP ####[address] [phone] LDL Cholesterol, NF 57 mg/dL Normal <[address] [facility] Comment on above: Result Comment: <100 mg/dL, Optimal 100-129 mg/dL, Near optimal/above optimal 130-159 mg/dL, Borderline high 160-189 mg/dL, High >189 mg/dL, Very high Secondary prevention optimal LDL Cholesterol levels are recommended to be < 70 mg/dL Performed By: #### L IPNF, PSAS1, HBA1C, CMP ####[phone] LDL/HDL Ratio, NF 1.54 mg/dL Normal <2.54 [facility] Comment on above: Result Comment: Deyvi henry: 1. National Cholesterol Education Program ATP III Guideline At-A-Glance Quick Desk Reference: National Heart, Lung, and Blood [place]. National Institutes of Health. 2001: NIH Publication No. 01-3305. 2. An International Atherosclerosis Society position paper: global recommendations for the management of dyslipidemia: executive summary, Atherosclerosis. 2014: 232(2):410-413. Performed By: #### L IPNF, PSAS1, HBA1C, CMP ####[address] [place] [phone] Non HDL Chol, NF 134 mg/dL High <130 [facility] Comment on above: Result Comment: <130 mg/dL, Optimal 130-159 mg/dL, Near optimal/above optimal 160-189 mg/dL, Borderline high 190-219 mg/dL, High >219 mg/dL, Very high Secondary prevention optimal non HDL Cholesterol levels are recommended to be < 100 mg/dL Performed By: #### L IPNF, PSAS1, HBA1C, CMP ####[place] [phone] T Chol/HDL Ratio NF 4.62 mg/dL Normal <5.[address] [facility] Comment on above: Performed By: #### L IPNF, PSAS1, HBA1C, CMP ####[place] [phone] Triglycerides, NF 384 mg/dL High <150 [facility] Comment on above: Result Comment: <150 mg/dL, Normal 150-199 mg/dL, Borderline high 200-499 mg/dL, High >499 mg/dL, Very high Performed By: #### L IPNF, PSAS1, HBA1C, CMP ####[address] [place] [phone] VLDL Cholesterol, NF 77 mg/dL High <30 [facility] Comment on above: Performed By: #### L IPNF, PSAS1, HBA1C, CMP ####[facility] [place], [place] [phone] CNOVon 10-26-2020 OV Office Visit (FAMPWS ) -- EDUARD LEOS ([id number]) 1945 M Date Time Provider Department 10/26/20 1:20 PM IRMA LÓPEZ During your visit today, we recorded the following information about you: Pulse Respiration Blood pressure Weight 81/minute 20/minute 94/62 101.6 kg Irma López APRN.AMMONIA NITRATE OPERATOR 10/26/2020 2:23 PM Signed This is a 75 year old male who presents today with: Patient presents with: Follow Up: [facility] HISTORY OF PRESENT ILLNESS: Eduard Leos is a 75 year old male. Patient presents with: Follow Up: [facility] Here in the office for hospital follow up. HOSPITAL/ER FOLLOW UP: Reason for visit: Lumbar back pain Which facility: [facility] Date of visit: 10/07/2020 Diagnosis: Lumbar strain. Testing done: xray: unremarkable- age related changes. Treatment given: Toradol with a prescription for Norflex and oxycodone for at home. Current symptoms: Still having ongoing low mid back pain that radiates down the right leg. Unable to take NSAIDS due to blood thinner. Has been taking tylenol 500 mg BID and flexeril at bedtime. Flexeril has been helping with sleep. Pain feels like a cramp and will get sharp with certain movements. Refers he just finished PT for the same issues. Has been continuing exercises at home. Broke back when younger and has had chronic back pain since. Does not want to see spinal specialist due to not wanting any other surgeries. No saddle anesthesia or loss of bowel/bladder. PAST MEDICAL HISTORY: PAST MEDICAL HISTORY Diagnosis Date - Abdominal pain, right upper quadrant 12/03/2018 - Anemia, unspecified 12/03/2018 - Brain Tumor 02/26/2009 benign per evaluation at [facility] - Coronary atherosclerosis of unspecified type of vessel, [facility] or graft coumadin managed by cardiology (Dr. Johnston) - CVA (Cerebral Infarction) 02/21/2009 - HYPERLIPIDEMIA NEC/NOS 12/21/2007 - Impaired Fasting Glucose 02/26/2009 - Ischemic dilated cardiomyopathy (HCC) LV EF 30% (most recent echo 06/08/2012) - JOINT PAIN-JOINT NEC 04/05/2007 - LUMBAGO 10/15/2005 - Nausea - Obese - Renal insufficiency, mild - SCIATICA 10/15/2005 - Skin cancer 1988 Non-melanoma. - Unspecified Essential Hypertension 02/26/2009 PAST SURGICAL HISTORY Procedure Laterality Date - CARDIOVERSION 01/07/2016 Dr. Dennison - COLONOSCOP W/ OR W/O BRSH SPEC 12/06/2018 Colonoscopy - EGD W/O OR W/BRUSH/WASH 02/11/2017 EGD - EGD W/O OR W/BRUSH/WASH 12/06/2018 EGD - LAPAROSCOPIC CHOLEYCYSTECTOMY Cholecystectomy, lap - PACEMAKER 2012 - PAST SURGICAL HISTORY OF biopsy on outer neck 40 yr ago - PAST SURGICAL HISTORY OF cast applied for compression fracture back - REMOVAL ADENOIDS,PRIMARY,<12 Y/O Adenoidectomy - REMOVAL OF TONSILS,<12 Y/O Tonsillectomy - RIGHT HEART CATHETERIZATION Cardiac cath, R heart - STENT PLACEMENT 2013 - [place] ABLATION 01/09/2016 Dr. Dennison - [place] ABLATION 06/02/2016 Dr. Dennison ALLERGIES Amiodarone, Gemfibrozil, and Nexium [Esomeprazole Magnesium] MEDICATIONS Current Outpatient Medications Medication Sig - traZODone (DESYREL) 50 mg tablet Take 1 tablet by mouth daily at bedtime. - famotidine (PEPCID) 20 mg tablet Take 1 tablet by mouth at bedtime as needed. - pantoprazole DR (PROTONIX) 40 mg tablet Take 1 tablet by mouth twice daily. - loperamide HCl (IMODIUM A-D) 2 mg tab Take 1 tablet by mouth as needed. for 3 or more BMs per day - ondansetron (ZOFRAN) 4 mg tablet Take 1 tablet by mouth once daily as needed. for nausea - metoprolol succinate ER (TOPROL XL) 50 mg 24 hr tablet Take 1 tablet by mouth once daily. Dr. Odom - furosemide (LASIX) 40 mg tablet Take 1.5 tablets by mouth twice daily. - potassium chloride SR (MICRO-K) 10 mEq CR capsule Take 2 capsules by mouth twice daily. - cyclobenzaprine (FLEXERIL) 10 mg tablet Take 0.5-1 tablets by mouth twice daily as needed for Muscle Spasm. (Patient not taking: Reported on 06/06/2020 ) - Alpha Lipoic Acid 600 mg cap Take 1 capsule by mouth once daily. - spironolactone (ALDACTONE) 25 mg tablet Take 1 tablet by mouth twice daily. - atorvastatin (LIPITOR) 40 mg tablet Take 1 tablet by mouth once daily. - warfarin (COUMADIN) 5 mg tablet Take 1 tablet by mouth once daily. (Patient taking differently: Take 5 mg by mouth once daily. 7.5 mg Thursday and Thursday, 5 mg all other days ) - warfarin (COUMADIN) 7.5 mg tablet Take 1 tablet by mouth once daily. - sacubitril-valsartan (ENTRESTO) 49-51 mg tablet Take 1 tablet by mouth twice daily. - COMPOUNDED PRESCRIPTION Oxygen 2-3 L by nasal cannula. Diagnosis hypoxia, systolic heart failure. Pulse oximetry at rest: Pulse oximetry with ambulation: Pulse oximetry with oxygen and ambulation: (Patient taking differently: Oxygen 2-3 L by nasal cannula. Diagnosis hypoxia, systolic heart failure. Pulse oximetry at rest: Pulse oximetry with ambulation: P (more content not included)... Normal [facility] 10-02-2020 CNOV Office Visit (UCWSTR ) -- EDUARD LEOS ([id number]) 1945 M Date Time Provider Department 10/02/20 1:45 PM SONU JIMENEZ [facility] During your visit today, we recorded the following information about you: Temperature Pulse Respiration Blood pressure 97.8 degrees 73/minute 18/minute 104/70 Weight 103.2 kg Sonu MICHELE Jimenez.NEYDA 10/02/2020 2:27 PM Signed Subjective HPI Nontoxic-appearing male presents urgent care chief complaint sore in the right side of face. Patient states he has had a lump on the side of states for 2 years. Was told this is a fat deposit. States 4 days ago the cyst became more painful. Red and swollen today. Has not noticed any drainage. No trismus. Presents today to see if this needs to be drained or placed on antibiotics. .Patient presents with: sore on right side of face: has had x 2 years but 4 days ago started getting sore and larger PAST MEDICAL HISTORY Diagnosis Date - Abdominal pain, right upper quadrant 12/03/2018 - Anemia, unspecified 12/03/2018 - Brain Tumor 02/26/2009 benign per evaluation at [facility] - Coronary atherosclerosis of unspecified type of vessel, [facility] or graft coumadin managed by cardiology (Dr. Johnston) - CVA (Cerebral Infarction) 02/21/2009 - HYPERLIPIDEMIA NEC/NOS 12/21/2007 - Impaired Fasting Glucose 02/26/2009 - Ischemic dilated cardiomyopathy (HCC) LV EF 30% (most recent echo 06/08/2012) - JOINT PAIN-JOINT NEC 04/05/2007 - LUMBAGO 10/15/2005 - Nausea - Obese - Renal insufficiency, mild - SCIATICA 10/15/2005 - Skin cancer 1988 Non-melanoma. - Unspecified Essential Hypertension 02/26/2009 PAST SURGICAL HISTORY Procedure Laterality Date - CARDIOVERSION 01/07/2016 Dr. Dennison - COLONOSCOP W/ OR W/O BRSH SPEC 12/06/2018 Colonoscopy - EGD W/O OR W/BRUSH/WASH 02/11/2017 EGD - EGD W/O OR W/BRUSH/WASH 12/06/2018 EGD - LAPAROSCOPIC CHOLEYCYSTECTOMY Cholecystectomy, lap - PACEMAKER 2012 - PAST SURGICAL HISTORY OF biopsy on outer neck 40 yr ago - PAST SURGICAL HISTORY OF cast applied for compression fracture back - REMOVAL ADENOIDS,PRIMARY,<12 Y/O Adenoidectomy - REMOVAL OF TONSILS,<12 Y/O Tonsillectomy - RIGHT HEART CATHETERIZATION Cardiac cath, R heart - STENT PLACEMENT 2013 - [place] ABLATION 01/09/2016 Dr. Dennison - [place] ABLATION 06/02/2016 Dr. Dennison ALLERGIES Amiodarone, Gemfibrozil, and Nexium [Esomeprazole Magnesium] MEDICATIONS mupirocin (BACTROBAN) 2 % ointment Apply 1 application to affected area twice daily for 10 days. or until healed traZODone (DESYREL) 50 mg tablet Take 1 tablet by mouth daily at bedtime. famotidine (PEPCID) 20 mg tablet Take 1 tablet by mouth at bedtime as needed. pantoprazole DR (PROTONIX) 40 mg tablet Take 1 tablet by mouth twice daily. loperamide HCl (IMODIUM A-D) 2 mg tab Take 1 tablet by mouth as needed. for 3 or more BMs per day ondansetron (ZOFRAN) 4 mg tablet Take 1 tablet by mouth once daily as needed. for nausea metoprolol succinate ER (TOPROL XL) 50 mg 24 hr tablet Take 1 tablet by mouth once daily. Dr. Odom furosemide (LASIX) 40 mg tablet Take 1.5 tablets by mouth twice daily. potassium chloride SR (MICRO-K) 10 mEq CR capsule Take 2 capsules by mouth twice daily. Alpha Lipoic Acid 600 mg cap Take 1 capsule by mouth once daily. spironolactone (ALDACTONE) 25 mg tablet Take 1 tablet by mouth twice daily. atorvastatin (LIPITOR) 40 mg tablet Take 1 tablet by mouth once daily. warfarin (COUMADIN) 7.5 mg tablet Take 1 tablet by mouth once daily. sacubitril-valsartan (ENTRESTO) 49-51 mg tablet Take 1 tablet by mouth twice daily. COMPOUNDED PRESCRIPTION Oxygen 2-3 L by nasal cannula. Diagnosis hypoxia, systolic heart failure. Pulse oximetry at rest: Pulse oximetry with ambulation: Pulse oximetry with oxygen and ambulation: ACETAMINOPHEN (TYLENOL EXTRA STRENGTH ORAL) Take 1,000 mg by mouth once daily. As needed COMPOUNDED PRESCRIPTION [facility] S/P ablation for INR checks, assessment and eval of VS, HF and coumadin teaching. Eval for PT.Dx; cardiomyopathy, ID, arrhythmia, CAD, anticoagulation. COMPOUNDED PRESCRIPTION S/P ablation for VT. Pt requires INR, assessment and eval VS, coumadin and HF teaching. Dx: Cardiomyopathy, ID, ventricular arrhythmia, CAD, anticoagulation. magnesium oxide (MAG-OX) 400 mg tablet 1 tablet twice weekly aspirin, enteric coated (ECOTRIN LOW STRENGTH) 81 mg EC tablet Take 1 tablet by mouth once daily. cyclobenzaprine (FLEXERIL) 10 mg tablet Take 0.5-1 tablets by mouth twice daily as needed for Muscle Spasm. warfarin (COUMADIN) 5 mg tablet Take 1 tablet by mouth once daily. FAMILY HISTORY Problem Relation Age of Onset - Heart Mother CVA - Coronary Artery Disease Mother - Stroke Mother - Prostate Cancer Father - Stroke Maternal Grandfather - Diabetes Maternal Grandmother - Cancer Siste (more content not included)... Normal [facility] XR Thoracic spine AP and Lat eral and [place] 06-07-2020 IMPRESSION: Degenerative changes of the thoracic spine without acute osseous abnormality. White Shoe Ragger: JAYSHREE Transcribe Date/Time: Jun 07 2020 8:19A Dictated by : KARI HERRERA MD This examination was interpreted and the report reviewed and electronically signed by: KARI HERRERA MD on Jun 07 2020 8:22AM [facility] DIVISION OF RADIOLOGY * * *Final Report* * * DATE OF EXAM: Jun 06 2020 5:25PM WOX [id number] - XR THORACIC 3V AP/LAT/SWIMMERS / PROCEDURE REASON: multiple diagnoses * * * * Physician Interpretation * * * * EXAMINATION: XR THORACIC 3V AP/LAT/SWIMMERS CLINICAL HISTORY: Pt. states history of back issues. Upper back/chest pain. Chronic bilateral thoracic back pain Technique: XR THORACIC 3V AP/LAT/SWIMMERS -- thoracic spine with 3 views on 3 images Comparison: Correlation was made with chest CT of 06/15/2017 RESULT: No acute fracture or traumatic subluxation of the thoracic spine. The vertebral body heights are maintained. There is intervertebral disc space narrowing throughout the thoracic spine with anterior endplate spurring, most significant in the lower levels. The pedicles are preserved on the frontal view. Dual lead cardiac pacing device overlies the LEFT hemithorax. The included lungs are grossly clear. DIVISION OF RADIOLOGY Provider, Patricia lucio [place] - 06/07/2020 * * *Final Report* * * DATE OF EXAM: Jun 06 2020 5:25PM WOX [id number] - XR THORACIC 3V AP/LAT/SWIMMERS / PROCEDURE REASON: multiple diagnoses * * * * Physician Interpretation * * * * EXAMINATION: XR THORACIC 3V AP/LAT/SWIMMERS CLINICAL HISTORY: Pt. states history of back issues. Upper back/chest pain. Chronic bilateral thoracic back pain Technique: XR THORACIC 3V AP/LAT/SWIMMERS -- thoracic spine with 3 views on 3 images Comparison: Correlation was made with chest CT of 06/15/2017 RESULT: No acute fracture or traumatic subluxation of the thoracic spine. The vertebral body heights are maintained. There is intervertebral disc space narrowing throughout the thoracic spine with anterior endplate spurring, most significant in the lower levels. The pedicles are preserved on the frontal view. Dual lead cardiac pacing device overlies the LEFT hemithorax. The included lungs are grossly clear. IMPRESSION IMPRESSION: Degenerative changes of the thoracic spine without acute osseous abnormality. White Shoe Ragger: JAYSHREE Transcribe Date/Time: Jun 07 2020 8:19A Dictated by : KARI HERRERA MD This examination was interpreted and the report reviewed and electronically signed by: KARI HERRERA MD on Jun 07 2020 8:22AM EST [facility] XR Thoracic spine AP and Lat eral and SwimmersOrdered By: [facility] Provider on 06-07-2020 [facility] No Panel Informationon 06-06 Radiology Study observation (narrative) [facility] XR Chest PA and Lateralon IMPRESSION: Improved bibasilar atelectasis. White Shoe Ragger: JAYSHREE Transcribe Date/Time: Jun 06 2020 5:30P Dictated by : SHARRI GALAVIZ MD This examination was interpreted and the report reviewed and electronically signed by: SHARRI GALAVIZ MD on Jun 06 2020 5:32PM [facility] DIVISION OF RADIOLOGY * * *Final Report* * * DATE OF EXAM: Jun 06 2020 5:25PM WOX [id number] - XR CHEST 2V FRONTAL/LAT / PROCEDURE REASON: multiple diagnoses * * * * Physician Interpretation * * * * EXAMINATION: CHEST RADIOGRAPH (2 VIEW FRONTAL & LATERAL) CLINICAL HISTORY: Chronic bilateral thoracic back pain Chronic bilateral thoracic back pain MQ: XC2_6 EXAM DATE/TIME: 06/06/2020 5:25 PM COMPARISON: Chest x-ray on 06/08/2017. RESULT: Lines, tubes, and devices: No change in position of left chest dual-chamber AICD. Lungs and pleura: Bibasilar atelectasis improved compared to prior study. No new consolidation. No lung mass. No pleural effusion. No pneumothorax. Cardiomediastinal silhouette: Normal cardiomediastinal silhouette. Bones and soft tissues: The spine shows degenerative changes. DIVISION OF RADIOLOGY Provider, [facility] - 06/06/2020 * * *Final Report* * * DATE OF EXAM: Jun 06 2020 5:25PM WOX [id number] - XR CHEST 2V FRONTAL/LAT / PROCEDURE REASON: multiple diagnoses * * * * Physician Interpretation * * * * EXAMINATION: CHEST RADIOGRAPH (2 VIEW FRONTAL & LATERAL) CLINICAL HISTORY: Chronic bilateral thoracic back pain Chronic bilateral thoracic back pain MQ: XC2_6 EXAM DATE/TIME: 06/06/2020 5:25 PM COMPARISON: Chest x-ray on 06/08/2017. RESULT: Lines, tubes, and devices: No change in position of left chest dual-chamber AICD. Lungs and pleura: Bibasilar atelectasis improved compared to prior study. No new consolidation. No lung mass. No pleural effusion. No pneumothorax. Cardiomediastinal silhouette: Normal cardiomediastinal silhouette. Bones and soft tissues: The spine shows degenerative changes. IMPRESSION IMPRESSION: Improved bibasilar atelectasis. White Shoe Ragger: JAYSHREE Transcribe Date/Time: Jun 06 2020 5:30P Dictated by : SHARRI GALAVIZ MD This examination was interpreted and the report reviewed and electronically signed by: SHARRI GALAVIZ MD on Jun 06 2020 5:32PM EST [facility] CNOVon 12-10-2018 CNOV Office Visit (BILL ESCOBAR) -- EDUARD LEOS ([id number]) 1945 M Date Time Provider Department 12/10/18 1:40 PM SOWMYA DENNISON ALEKSANDROVICHAGCARDPOB During your visit today, we recorded the following information about you: Pulse Respiration Blood pressure Weight 71/minute 16/minute 118/64 106.1 kg Height 1.753 m Alvina Colon MA 12/10/2018 1:47 PM Signed Patient has no cardiac complaints today. DERIC Parker. 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 He reports no ICD shocks and no palpitation since ablation. Denies chest pain, dyspnea or syncope. Recently quit smoking. In 2017 his amiodarone was discontinued due to concern for potential pulmonary toxicity. Interval history: Eduard was referred for EP evaluation because he is recent device interrogation demonstrated 2 episodes of tachycardia at 140 bpm. The patient was asymptomatic, had no dictation, dizziness, or ICD shocks. The tracings reflecting the events are not available for review at the time of the dictation. At the present time Mr. Leos is doing reasonably well clinically, although he was recently hospitalized with GI issues. He remains on a beta margaret and has not required antiarrhythmic therapy. His last coronary angiogram was performed in 2015. He demonstrated patent proximal LAD stent, no significant LCx disease, severe RCA disease in its proximal segment followed by mid vessel occlusion with left to right collaterals. We will obtain device tracings from Dr. Jorge's office and decide if further testing is warranted based on the results. ECG shows sinus rhythm at 67 bpm with left axis deviation and normal intervals. Review of Systems Respiratory: Negative for hemoptysis and shortness of breath. Cardiovascular: Negative for chest pain and palpitations. Gastrointestinal: Negative for blood in stool and melena. Genitourinary: Negative for hematuria. Neurological: Negative for loss of consciousness. Psychiatric/Behavioral: The patient is not nervous/anxious. Objective Physical Exam Constitutional: He is oriented to person, place, and time and well-developed, well-nourished, and in no distress. HENT: Head: Normocephalic and atraumatic. Eyes: Conjunctivae are normal. Cardiovascular: Normal rate and regular rhythm. Pulmonary/Chest: Effort normal. No stridor. No respiratory distress. Neurological: He is alert and oriented to person, place, and time. Skin: No pallor. Psychiatric: Mood and affect normal. Referring Provider: SELF [[id number]] Allergies As of Date: 12/10/2018 Noted Allergy Reaction AMIODARONE 02/17/2018 14 - Other: See Comments Comments: Pulmonary fibrosis GEMFIBROZIL 02/26/2009 5 - Intolerance Comments: Upset stomach; constipation NEXIUM (ESOMEPRAZOLE MAGNESIUM) 01/26/2017 8 - GI Upset Date Reviewed: 12/10/2018 Reviewed by: Sowmya Dennison - Fully Assessed Reason for Visit: Established Patient [175] Primary Visit Diagnosis:Paroxysmal atrial fibrillation (HCC) [I48.0] Other Visit Diagnoses:VT (ventricular tachycardia) (HCC) [I47.2] ICD (implantable cardioverter-defibrillator ) discharge [Z45.02] Ischemic dilated cardiomyopathy (HCC) [I25.5, I42.0] Atherosclerosis of [place] coronary artery of [place] heart without angina pectoris [I25.10] Essential hypertension [I10] Order(s):ECG B/O W INTERP (MED OFFICE) [ECG06] Order #: [id number] Prescriptions as of 12/10/2018 Sig: CYCLOBENZAPRINE 10 MG TABLET Take 0.5-1 tablets by mouth t* ALPHA LIPOIC ACID 600 MG CAPS* Take 1 capsule by mouth once * ONDANSETRON HCL 4 MG TABLET Take 1 tablet by mouth once d* LOPERAMIDE 2 MG TABLET Take 1 tablet by mouth as nee* SPIRONOLACTONE 25 MG TABLET Take 1 tablet by mouth twice * ATORVASTATIN 40 MG TABLET Take 1 tablet by mouth once d* PANTOPRAZOLE 40 MG TABLET,DEL* Take 1 tablet by mouth twice * WARFARIN 5 MG TABLET Take 1 tablet by mouth once d* FUROSEMIDE 40 MG TABLET Take 1 tablet by mouth twice * WARFARIN 7.5 MG TABLET Take 1 tablet by mouth once d* SACUBITRIL 49 MG-VALSARTAN 51* Take 1 tablet by mouth twice * POTASSIUM CHLORIDE ER 10 MEQ * Take 1 capsule by mouth twice* ONDANSETRON HCL 4 MG TABLET METOPROLOL SUCCINATE ER 25 MG* Take 1 tablet by mouth once d* COMPOUNDED PRESCRIPTION Oxygen 2-3 L by nasal cannula* TYLENOL EXTRA STRENGTH ORAL Take 1,000 mg by mouth once d* COMPOUNDED PRESCRIPTION Home health S/P ablation for * COMPOUNDED PRESCRIPTION HH S/P ablation for VT. Pt re* MAGNESIUM OXIDE 400 MG (241.3* 1 tablet twice weekly ASPIRIN 81 MG TABLET,DELAYED * Take 1 tablet by mouth once d* WARFARIN 2 MG TABLET Take 1 tablet by mouth daily * WARFARIN 3 MG TABLET TAKE 1 TABLET BY MOUTH ONCE D* Medication notes this encounter WARFARIN 2 MG TABLET >> Alvina Colon MA 12/10/2018 1:43 PM >> ALVINA COLON MA ThuDec 10, 2018 1:43 PM Not taking WARFARIN 3 MG TABLET >> Alvina Colon MA 12/10/2018 1:43 PM >> ALVINA COLON MA ThuDec 10, 2018 1:43 PM Not taking Problem List As Of Date 12/10/2018 Noted Resolved LUMBAGO [M54.5] INVALID FOR* SCIATICA [M54.30] INVALID FOR* CARPAL TUNNEL SYNDROME [G56.00] INVALID FOR*04/05/2007 LATERAL EPICONDYLITIS [M77.10] INVALID FOR*04/05/2007 JOINT PAIN-JOINT NEC [M25.50] INVALID FOR* Mixed hyperlipidemia [E78.2] INVALID FOR* Cerebral infarction (HCC) [I63.9] INVALID FOR* Essential hypertension [I10] INVALID FOR* Impaired Fasting Glucose [R73.01] INVALID FOR* Brain Tumor [D49.6] INVALID FOR* More... Pain in Joint, Pelvic Region and Thigh [M25.559]INVALID FOR* Coronary atherosclerosis [I25.10] Ischemic dilated cardiomyopathy [I25.5, I42.0] More... S/P coronary artery stent placement [Z95.5] INVALID FOR* GERD (gastroesophageal reflux disease) [K21.9] INVALID FOR* Presence of stent in LAD coronary artery [Z95.5]INVALID FOR* ICD (implantable cardioverter-defibrillator ) di*INVALID FOR* Paroxysmal atrial fibrillation (HCC) [I48.0] INVALID FOR* VT (ventricular tachycardia) (HCC) [I47.2] INVALID FOR* Renal insufficiency [N28.9] INVALID FOR* Chronic anticoagulation [Z79.01] INVALID FOR* Encounter for monitoring anti-arrhythmic therap*INVALID FOR* Dyspepsia [R10.13] INVALID FOR* More... Nausea [R11.0] INVALID FOR* More... Epigastric abdominal pain [R10.13] INVALID FOR* More... Unilateral inguinal hernia without obstruction *INVALID FOR* Right groin pain [R10.31] INVALID FOR* Right testicular pain [N50.811] INVALID FOR* Umbilical hernia without obstruction or gangren*INVALID FOR* Personal history of ventricular tachycardia [Z8*INVALID FOR* Choledocholithiasis [K80.50] INVALID FOR* Right upper quadrant pain [R10.11] INVALID FOR* Liver cyst [K76.89] INVALID FOR* Kidney cysts [N28.1] INVALID FOR* Lung nodule < 6cm on CT [R91.1] INVALID FOR* Obesity, Class I, BMI 30-34.9 [E66.9] INVALID FOR* Visit Notes: >> Alvina Colon ThuDec 10, 2018 1:41 PM Status: Signed Patient has no cardiac complaints today. DERIC Parker. Disposition: Return if symptoms worsen or fail to improve. Follow-up and Disposition History Recorded Encounter Status:Closed by SOWMYA DENNISON MD on 12/10/18 [facility] PROGRESSon 12-10-2018 PROGRESS HNO ID: [id number] Author: Sowmya Dennison Service: ? 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 He reports no ICD shocks and no palpitation since ablation. Denies chest pain, dyspnea or syncope. Recently quit smoking. In 2017 his amiodarone was discontinued due to concern for potential pulmonary toxicity. Interval history: Eduard was referred for EP evaluation because he is recent device interrogation demonstrated 2 episodes of tachycardia at 140 bpm. The patient was asymptomatic, had no dictation, dizziness, or ICD shocks. The tracings reflecting the events are not available for review at the time of the dictation. At the present time Mr. Leos is doing reasonably well clinically, although he was recently hospitalized with GI issues. He remains on a beta margaret and has not required antiarrhythmic therapy. His last coronary angiogram was performed in 2016. He demonstrated patent proximal LAD stent, no significant LCx disease, severe RCA disease in its proximal segment followed by mid vessel occlusion with left to right collaterals. We will obtain device tracings from Dr. Jorge's office and decide if further testing is warranted based on the results. ECG shows sinus rhythm at 67 bpm with left axis deviation and normal intervals. Review of Systems Respiratory: Negative for hemoptysis and shortness of breath. Cardiovascular: Negative for chest pain and palpitations. Gastrointestinal: Negative for blood in stool and melena. Genitourinary: Negative for hematuria. Neurological: Negative for loss of consciousness. Psychiatric/Behavioral: The patient is not nervous/anxious. Objective Physical Exam Constitutional: He is oriented to person, place, and time and well-developed, well-nourished, and in no distress. HENT: Head: Normocephalic and atraumatic. Eyes: Conjunctivae are normal. Cardiovascular: Normal rate and regular rhythm. Pulmonary/Chest: Effort normal. No stridor. No respiratory distress. Neurological: He is alert and oriented to person, place, and time. Skin: No pallor. Psychiatric: Mood and affect normal. Normal [facility] OBSOLETEon 02-15-2018 OBSOLETE Procedure (AKEPD) -- EDUARD LEOS ([id number]) 1945 M Date Time Provider Department 02/15/18 11:00 AM DEVICE CLINIC 1 AKE[facility] During your visit today, we recorded the following information about you: Inspector Optical Instrument: Facesheet ID: [id number] 02/15/2018 12:00 AM Author: PATRICIA PROVIDER Signed by PATRICIA PROVIDER on 02/15/2018 at 10:51 AM Document text: Display document [id number] only Referring Provider: SOWMYA DENNISON [[id number]] Allergies As of Date: 02/15/2018 Noted Allergy Reaction GEMFIBROZIL 02/26/2009 5 - Intolerance Comments: Upset stomach; constipation NEXIUM (ESOMEPRAZOLE MAGNESIUM) 01/26/2017 8 - GI Upset Date Reviewed: 01/28/2018 Reviewed by: Mary Madison LPN - Fully Assessed Reason for Visit: Dual Chamber ICD [1362] Visit Diagnosis:Ischemic dilated cardiomyopathy (HCC) [I25.5, I42.0] Prescriptions as of 02/15/2018 Sig: ONDANSETRON HCL 4 MG TABLET Take 1 tablet by mouth once d* LOPERAMIDE 2 MG TABLET Take 1 tablet by mouth as nee* ONDANSETRON HCL 4 MG TABLET SPIRONOLACTONE 25 MG TABLET Take 1 tablet by mouth twice * WARFARIN 5 MG TABLET SACUBITRIL 49 MG-VALSARTAN 51* Take 1 tablet by mouth twice * FUROSEMIDE 40 MG TABLET Take 1 tablet by mouth twice * METOPROLOL SUCCINATE ER 25 MG* Take 1 tablet by mouth once d* WARFARIN 7.5 MG TABLET Take 1 tablet by mouth once d* POTASSIUM CHLORIDE ER 10 MEQ * Take 1 capsule by mouth twice* COMPOUNDED PRESCRIPTION Home titration study with por* COMPOUNDED PRESCRIPTION Oxygen 2-3 L by nasal cannula* PANTOPRAZOLE 40 MG TABLET,DEL* Take 1 tablet by mouth twice * WARFARIN 2 MG TABLET Take 1 tablet by mouth daily * WARFARIN 3 MG TABLET TAKE 1 TABLET BY MOUTH ONCE D* TYLENOL EXTRA STRENGTH ORAL Take 1,000 mg by mouth once d* ATORVASTATIN 40 MG TABLET Take 1 tablet by mouth once d* STOOL SOFTENER ORAL Take by mouth. every other d* COMPOUNDED PRESCRIPTION Home health S/P ablation for * COMPOUNDED PRESCRIPTION S/P ablation for VT. Pt re* MAGNESIUM OXIDE 400 MG (241.3* 1 tablet twice weekly ASPIRIN 81 MG TABLET,DELAYED * Take 1 tablet by mouth once d* Problem List As Of Date 02/15/2018 Noted Resolved LUMBAGO [M54.5] INVALID FOR* SCIATICA [M54.30] INVALID FOR* CARPAL TUNNEL SYNDROME [G56.00] INVALID FOR*04/05/2007 LATERAL EPICONDYLITIS [M77.10] INVALID FOR*04/05/2007 JOINT PAIN-JOINT NEC [M25.50] INVALID FOR* Mixed hyperlipidemia [E78.2] INVALID FOR* Cerebral infarction (HCC) [I63.9] INVALID FOR* Essential hypertension [I10] INVALID FOR* Impaired Fasting Glucose [R73.01] INVALID FOR* Brain Tumor [D49.6] INVALID FOR* More... Pain in Joint, Pelvic Region and Thigh [M25.559]INVALID FOR* Coronary atherosclerosis [I25.10] Ischemic dilated cardiomyopathy [I25.5, I42.0] More... S/P coronary artery stent placement [Z95.5] INVALID FOR* GERD (gastroesophageal reflux disease) [K21.9] INVALID FOR* Presence of stent in LAD coronary artery [Z95.5]INVALID FOR* ICD (implantable cardioverter-defibrillator ) di*INVALID FOR* Paroxysmal atrial fibrillation (HCC) [I48.0] INVALID FOR* VT (ventricular tachycardia) (HCC) [I47.2] INVALID FOR* Renal insufficiency [N28.9] INVALID FOR* Chronic anticoagulation [Z79.01] INVALID FOR* Encounter for monitoring anti-arrhythmic therap*INVALID FOR* Dyspepsia [R10.13] INVALID FOR* More... Nausea [R11.0] INVALID FOR* More... Epigastric abdominal pain [R10.13] INVALID FOR* More... Unilateral inguinal hernia without obstruction *INVALID FOR* Right groin pain [R10.31] INVALID FOR* Right testicular pain [N50.811] INVALID FOR* Umbilical hernia without obstruction or gangren*INVALID FOR* Personal history of ventricular tachycardia [Z8*INVALID FOR* Choledocholithiasis [K80.50] INVALID FOR* Right upper quadrant pain [R10.11] INVALID FOR* Liver cyst [K76.89] INVALID FOR* Kidney cysts [N28.1] INVALID FOR* Lung nodule < 6cm on CT [R91.1] INVALID FOR* Encounter Status:Closed by ESAU MEHTA on 02/15/18 Normal [facility] CT ABDOMEN AND PELVIS W/O CO NTRASTon 04-14-2017 CT ABDOMEN AND PELVIS W/O CONTRAST Performed at [facility] APPROVED BY: Meño Malave MD EXAM TITLE:CT ABDOMEN AND PELVIS W/O CONTRAST DATE:04/14/2017 13:02 COMPARISON: None. CLINICAL INDICATION/HISTORY: Chronic right groin/testicular pain TECHNIQUE: CT examination of the abdomen and pelvis performed without oral or IV contrast. CT Radiation dose: Integrated Dose-length product (DLP) for this visit = 1035 mGy*cm.CT Dose Reduction Employed: 1 FINDINGS:ABDOMINAL FINDINGS:4 mm subpleural right lower lobe nodule on image 3 of series 2. Otherwise, the visualized lung bases are clear. Leads from a cardiac pacemaker are visualized. Limited evaluation of the unenhanced visceral organs. There are 2 hypodense left hepatic nodules as seen on images 20 and 26 of series 2, each measuring 5 mm in size. The gallbladder is absent. The common bile duct is mildly distended measuring 10 mm, likely representing reservoir effect. There is, however, the suggestion of a possible filling defect within the duct on images 52 through 55 of series 2. This could represent choledocholithiasis or a soft tissue mass. Further evaluation with MRCP is recommended. The spleen and pancreas appear normal as do the adrenal glands. There is a 12 mm low-density nodule exophytic from the posterior lower pole of the right kidney which most likely represents a benign cyst. No hydronephrosis or calculus is present. There is bilateral nonspecific age indeterminate perinephric stranding. There is a normal appearance of the appendix. Mild distal colonic diverticulosis without diverticulitis. No bowel dilatation or wall thickening. No focal vascular abnormality. There is mild atherosclerotic change and ectasia of the abdominal aorta and iliac vessels. There is no lymphadenopathy, free fluid or omental mass. No acute bony abnormality. PELVIC FINDINGS:Incidental note is made of fat within the wall of the urinary bladder which can be a normal finding. There are prostate gland calcifications. There is no mass, free fluid or lymph node enlargement. There is no inguinal hernia. No acute bony abnormality. A nonspecific sclerotic abnormality is present within the left ilium, likely a bone island. IMPRESSION:1. No obvious cause for right groin/testicular pain is identified.2. There is the suggestion of abnormal density within the common bile duct lumen which could represent mass or choledocholithiasis. Further evaluation with MRCP recommended.3. 2 separate 5 mm hypodense hepatic nodules, likely benign.4. Exophytic low-density right renal mass, likely a benign cyst. This and the hepatic nodules could also be further evaluated at the time of the MRI.5. 4 mm right lung nodule. 12 month follow-up is suggested if the patient is considered high risk for carcinoma. No additional follow-up is required the patient is at low risk. Normal [facility] ANES Chelsy 02-11-2017 ANES POST HNO ID: [id number] thor: Kamron Mixervice: AnesthesiologyAuthor Type: AnesthesiologistType: Anesthesia PostOpFiled: 02/11/2017 8:54 PMNote Text:POST ANESTHESIA EVALUATION NOTESERVICE DATE: 02/11/2017SERVICE TIME: 8.53DOB: 1945Vitals: 02/11/1813Temp: 36.8 ?C (98.2 ?F) 37 ?C (98.6 ?F) 02/11/1814BP: 93/51 98/55 118/66 116/64 02/11/1814Pulse: 60 60 60 60 02/11/1814Resp: 16 18 16 18 02/11/1814SpO2: 94% 95% 95% 96%Validated Vital Signs: YesPOST ANES STATUS: No apparent anesthetic complications. The patient isappropriately hydrated with stable respiratory and cardiovascular status.Patient has safe and adequate airway control. The patient has appropriatepain relief and no significant post operative nausea or vomiting. Thepatient has achieved baseline mental status.Further assessment by Anesthesia Service: NoneOther Remarks:SIGNATURE: Kamron Hull MD PATIENT NAME: Eduard Sawyer CulpepperDATE: February 11, 2017 : 8:53 PM PAGER/CONTACT #: anesthesia Normal [facility] ANES PREOPon 02-11-2017 ANES PREOP HNO ID: [id number] thor: Kamron Mixervice: AnesthesiologyAuthor Type: AnesthesiologistType: Anesthesia PreOpFiled: 02/11/2017 1:32 PMNote Text: ANESTHESIOLOGY DAY OF SURGERY NOTESERVICE DATE: 02/11/2017SERVICE TIME:13.32DOB: 1945Procedure(s) (LRB):EGD WITH BIOPSY (N/A)Surgeon(s):Tj MaanEstimated body mass index is 29.53 kg/(m2) as calculated from thefollowing: Height as of this encounter: 175.3 cm (5' 9). Weight as of this encounter: 90.7 kg (200 lb).Most recent hematocrit and potassium results:Hematocrit 45.7 12/25/2016Potassium 4.2 12/25/2016ANES DOS/PREOP NOTE:Vitals: 147BP: 148/76Pulse: 60Resp: 18Temp: 36.8 ?C (98.2 ?F)TempSrc: Temporal ArterySpO2: 98%Weight: 90.7 kg (200 lb)Height: 175.3 cm (5' 9)ACTIVE PROBLEM LISTLumbagoSciaticaPain in Joint, Other Specified SitesMixed HyperlipidemiaCerebral Infarction (Hcc)Essential HypertensionImpaired Fasting GlucoseBrain Tumor (Hcc)Pain in Joint, Pelvic Region and ThighCoronary AtherosclerosisIschemic Dilated Cardiomyopathy (Hcc)S/P coronary artery stent placementGerd (Gastroesophageal Reflux Disease)Presence of Stent in Lad Coronary ArteryIcd (Implantable Cardioverter-Defibrillator ) DischargeParoxysmal Atrial Fibrillation (Hcc)Vt (Ventricular Tachycardia) (Hcc)Renal InsufficiencyChronic AnticoagulationEncounter for Monitoring Anti-Arrhythmic TherapyDyspepsiaNauseaEpig astric Abdominal PainPAST MEDICAL HISTORYDiagnosis Date- Brain Tumor 02/26/2009 benign per evaluation at main campus [facility]- Coronary atherosclerosis of unspecified type of vessel, [place] or graft coumadin managed by cardiology (Dr. Johnston)- CVA (Cerebral Infarction) 02/21/2009- HYPERLIPIDEMIA NEC/NOS 12/21/2007- Impaired Fasting Glucose 02/26/2009- Ischemic dilated cardiomyopathy (HCC) LV EF 30% (most recent echo 06/08/2012)- JOINT PAIN-JOINT NEC 04/05/2007- LUMBAGO 10/15/2005- SCIATICA 10/15/2005- Unspecified Essential Hypertension 02/26/2009PAST SURGICAL HISTORYProcedure Laterality Date- CARDIOVERSION 01/07/2016 Dr. Dennison- LAPAROSCOPIC CHOLEYCYSTECTOMY Cholecystectomy, lap- PAST SURGICAL HISTORY OF biopsy on outer neck 40 yr ago- PAST SURGICAL HISTORY OF cast applied for compression fracture back- REMOVAL ADENOIDS,PRIMARY,<12 Y/O Adenoidectomy- REMOVAL OF TONSILS,<12 Y/O Tonsillectomy- RIGHT HEART CATHETERIZATION Cardiac cath, R heart- VT ABLATION 01/09/2016 Dr. Dennison- VT ABLATION 06/02/2016 Dr. DennisonFAMILY HISTORYProblem Relation Age of Onset- Heart Mother CVA- Coronary Artery Disease Mother- Stroke Mother- Prostate Cancer Father- Stroke Maternal Grandfather- Diabetes Maternal Grandmother- Cancer SisterSocial History:Social HistorySubstance Use Topics- Smoking status: Former Smoker Packs/day: 1.00 Years: 50.00 Types: Cigarettes Quit date: 05/15/2016- Smokeless tobacco: Never Used Comment: 2.5 packs per week (mever did quit)- Alcohol use No Comment: no longer drinksNo current facility-administered medications on file prior to encounter.Current Outpatient Prescriptions on File Prior to Encounter:DOCUSATE CALCIUM (STOOL SOFTENER ORAL) Take by mouth. every other dayOmeprazole Magnesium (PRILOSEC OTC) 20 mg tablet Take 1 tablet by mouthonce daily.ondansetron (ZOFRAN) 4 mg tablet Take 1 tablet by mouth every 8 hours asneeded.metoprolol succinate ER (TOPROL XL) 25 mg 24 hr tablet Take 1 tablet bymouth once daily.amiodarone (PACERONE) 200 mg tablet Take 1 tablet by mouth once daily.warfarin (COUMADIN) 3 mg tablet TAKE 1 TABLET BY MOUTH ONCE DAILY ASDIRECTED WITH THE 2MG OR [address] (PROTONIX) 40 mg tablet Take 1 tablet by mouth once daily.aspirin, enteric coated (ECOTRIN LOW STRENGTH) 81 mg EC tablet Take 1tablet by mouth once daily.cyclobenzaprine (FLEXERIL) 10 mg tablet Take 1 tablet by mouth twice dailyas needed for Muscle Spasm.meclizine (ANTIVERT) 25 mg tab Take 1 tablet by mouth every 6 hours asneeded (dizziness).COMPOUNDED PRESCRIPTION [facility] S/P ablation for INR checks,assessment and eval of VS, HF and coumadin teaching. Eval for PT.Dx;cardiomyopathy, ID, arrhythmia, CAD, anticoagulation.COMPOUNDED PRESCRIPTION S/P ablation for VT. Pt requires INR,assessment and eval VS, coumadin and HF teaching. Dx: Cardiomyopathy, ID,ventricular arrhythmia, CAD, anticoagulation.nitroglyce rin sublingual (NITROQUICK) 0.4 mg SL tablet Dissolve 1 tabletunder the tongue as needed. FOR CHEST PAIN. IF NO RELIEF CALL 911warfarin (COUMADIN) 2 mg tablet Take 1 tablet by mouth daily as directed.fluticasone (FLONASE) 50 mcg/actuation nasal spray Use 1 [place] in eachnostril once daily. As directedmagnesium oxide (MAG-OX) 400 mg tablet 1 tablet twice weeklyCurrent Facility-Administered Medications:NaCl 0.9% iv infusion 30 mL/hr INTRAVENOUS CONTINUOUS Tj Hardingt Rate: 30 mL/hr at 02/11/17 1205 30 mL/hr at 02/11/17 1205Allergies:ALLERGIESAll ergen Reactions- Gemfibrozil Intolerance Upset stomach; constipation- Nexium [Esomeprazol* GI UpsetDOS EXAM: Adequate NPO status: YesAnesthetic risks, benefits, alternatives, personnel and consent discussed:YesPatient agrees to proceed: YesPrevious Anesthesia: No history of adverse event.Airway Assessment: MP 2; Neck ROM: Full ROM without neurologic symptoms;Airway Evaluation: No significant abnormalitiesSymptoms of Sleep Apnea: NoneDentition: Poor dentitionAdditional Physical Exam:Lungs: Patient health status unchanged since recent history and physical.See history and physical for exam findings.Lungs clear to auscultation. Good diaphragmatic excursion.Cardiac: Patient health status unchanged since recent history andphysical. See history and physical for exam findings.normal S1 and S2; no rubs, no murmurs, and no gallopsAdditional Pertinent Findings: N/ABlood Products: Not anticipated for this procedure.Anesthetic Plan: MAC with SedationPain Management Plan: Parenteral or OralASA Class: 4Other Medical Problems: NoneChronic Beta Margaret medication administered within 24 hours: N/AI have interviewed and examined the patient. I have reviewed the medicalrecord and/or the pre-anesthesia evaluation, pertinent labs, and testresults.Significant changes in the patient's condition since the History andPhysical, not otherwise documented in primary service progress notes: NoThis contains updated information obtained within 48 hours ofSurgery/Procedure.SIGNAT URE: Kamron Hull MD PATIENT NAME: Eduard Sawyer CulpepperDATE: February 11, 2017 : 1:32 PM CSN: [id number] [facility] NURSING PROGon 02-11-2017 NURSING PROG HNO ID: [id number] thor: Cordelia (Rn) Christie, RNService: (none)Author Type: Registered NurseType: Nursing Progress NoteFiled: 02/11/2017 4:00 PMNote Text:@ 1440 Pt received to PACU, via cart, from [facility]. Pt sedated - rouseseasily AND briefly - quickly returns to sleep when not stimulated. Pt HOBslightly elevated AND pt on left side. Side rails up.@ 1456 Pt spoke with . Pt denies complaints - feels 'hungry.@ 1509 Awake AND conversant - O2 d/c - will observe.@ 1525 Fully awake - telling jokes. Ready to enter phase II.@ 1526 [address] space #7 in PACU for phase II.@ 1530 Taking orals - well tolerated.@ 1541 Discharge instructions reviewed - IV d/c.@ 1555 Voids without difficulty - steady while up with cane aspre-procedure.@ 1600 Discharged to home via w/c. [facility] NURSING PROG HNO ID: [id number] thor: Abbie MontesRn) Gena Rome: NursingAuthor Type: Registered NurseType: Nursing Progress NoteFiled: 02/11/2017 12:04 PMNote Text: Nursing Progress NotePatient Name: Eduard NegronN: [id number] Location: [place] pt ready for OR, friend called to bedside, call light in reach.This note was completed by: Abbie Rome RN [facility] PT EDon 02-11-2017 PT ED HNO ID: [id number] thor: Cordelia MontesRn) Gena Soriano: (none)Author Type: Registered NurseType: Patient EducationFiled: 02/11/2017 3:57 PMNote Text:POST OP LEARNING RESPONSEINSTRUCTION PROVIDED TO: PatientMETHOD OF INSTRUCTION: Teach Back .PATIENT / FAMILY RESPONSE: Verbalizes understanding of: POST-OPERATIVEINSTRUCTIONS -Correct actions to take to reduce postoperative complicationsFOLLOW-UP PLAN: Patient instructed to call with any further issuesSUPPLEMENTAL MATERIAL: NoneREFERRAL (RECOMMENDATION): NoneElectronically Signed By: Cordelia Soriano RN [facility]: [id number] thor: Abbie (Rn) Clark Romeice: NursingAuthor Type: Registered NurseType: Patient EducationFiled: 02/11/2017 12:09 PMNote Text:PRE OP LEARNING ASSESSMENTPROCEDURE/SURGER Y: EGDREADINESS TO LEARNCOGNITIVE ABILITY: Alert and orientedMOTIVATION TO LEARN: InterestedFAMILY SUPPORT: High - Very involved in pt carePATIENT LEARNS BEST BY: Written Instruction - Hand-outsVerbal InstructionFACTORS AFFECTING LEARNING: NonePHYSICAL LIMITATIONS AFFECTING LEARNING: NoneElectronically Signed By: Abbie Rome RN In Department: [facility] SURGICAL PATHOLOGYon 018 SURGICAL PATHOLOGY Specimen originated from [facility] #: [id number] Physician: TJ MARLEY MD FI NAL DIAGNOSIS1. Gastric antrum, biopsy (A) - Focal active gastritis and reactivegastropathy.- No morphologic evidence of H. pylori organisms.2. Esophagogastric junction, biopsy (B) - Squamocolumnar junction mucosawith reactive epithelial changes, negative for intestinal metaplasia anddysplasia.3. Mid esophagus, biopsy (C) - Squamous epithelium with mild reactiveepithelial changes.- Morphologic changes of eosinophilic esophagitis are not seen.JJ/rw 02/13/2017 Marie Dotson M.D.(Electronic Signature) S PECIMEN SUBMITTEDA: ANTRAL, BIOPSY B: ESOPHAGOGASTRIC JUNCTION, BIOPSY C: MID ESOPHAGUS, BIOPSY CLINICAL DATAABDOMINAL PAIN, C) R/O EOEGROSS DESCRIPTIONA. Received in formalin is one piece of restrepo, soft tissue measuring 0.3 x0.3 x 0.2 cm. Totally submitted in one cassette.B. Received in formalin is one piece of restrepo, soft tissue measuring 0.2 x0.2 x 0.2 cm. Totally submitted in one cassette.C. Received in formalin is one piece of restrepo, soft tissue measuring 0.3 x0.2 x 0.2 cm. Totally submitted in one cassette.Gross examination performed at [facility], [address] [place] [address] [id number] 02/12/2017 12:32:56 PMPatient ID #: [id number] of Report: 02/13/2017Date of Procedure: 02/11/2017Date of Receipt: 02/11/2017Submitted by: TJ MARLEY MDLocation: MEENDDiagnostic interpretation performed at [facility] [address],[place] [address]. Normal [facility] Comment on above: Performed By: #### P ATHS ####[facility] [id number] [place], [place] [id number] NURSING PROGon 02-06-2017 NURSING PROG HNO ID: [id number] thor: Marie (Rn) Tatiana, RNService: (none)Author Type: Registered NurseType: Nursing Progress NoteFiled: 02/06/2017 12:46 PMNote Text:PACC Nurse Progress NoteHistory AND Physical:PACC Visit Date: NoneRecent H AND P done 01/26/17 by Rolan Duran CNP in [facility].Labs Within Last 6 Months:CBC: Date 12/25/16BMP/CMP: Date 12/25/16PT: Date 01/31/17- (2.4)Imaging Within Last 12 Months:Chest X-rayDate of test: 01/07/16Cardiac Testing:EKG in last 12 Months: Yes: Date: 01/13/17, Comment: Abnormal see chartfor resultsCardiac nuclear test Stress Test Date: 07/17/15 , Comment:abnormal-(CONCLUSI ONS: There is a large (>20%) fixed perfusion defect inthe LCX territory. There is a large (>20%) fixed perfusion defect in theRCA territory. Left ventricle is moderately/severely dilated . the leftventricle systolic function is severely decreased. Right ventricle ismoderately dilated The right ventricle systolic function is moderatelydecreased. The Stress LVEF is 19 %. There is no scintigraphic evidencefor inducible ischemia. This is a high risk scan.)Device:Pacer/Defib- AICDDevice Type: St. JudeInterrogation Date: 01/13/17, Comment: (scanned in [facility]- Battery longevity-3 years 8 months)Risk Assessment:Cardiac Date: Recent cardiac follow-up office visit done 01/13/17 in [facility]- He reports no ICD shocks and no palpitation since ablation. Denieschest pain, dyspnea or syncope. Recently quit smoking. He is maintainedon low-dose carvedilol in addition to amiodarone, but he feels thatcarvedilol has been causing abdominal discomfort. Dr. London [facility], is considering replacing Cardella with Toprol.Anesthesia Review:02/06/17 sent an e-mail for chart review regarding cardiac history to .Narrative:Per HPI: CAD-ischemic cardiopathy, severe LV systolic dysfunction;Pacemaker implanted 2013; S/P Cardiac ablations x3- 2016 x2 and 05/2016- OnWarfarin and baby ASA-follows with Dr. JohnstonAnticoagulation: Per telephone encounter- 02/03/17- patient informed fromDr. Johnston-okay to stop Warfarin 2 days before procedure; expected lastdose-02/08/17.Pre-op Considerations:DOS- PT-INR- Brigida montes de oca St. JudeChcarmina Check:IN PROGRESS-Pacemaker insurance verification representative and preop Faustino Metz 2016 12:22 PM [facility] HOSPon 01-27-2017 HOSP Patient:Jairon Leos BMRN: Height:5' 9(1.753 m)Weight:200 lb (90.719 kg)Outpatient Medications as of 02/11/17:ACETAMINOPHEN (TYLENOL EXTRA STRENGTH ORAL)atorvastatin (LIPITOR) 40 mg tabletwarfarin (COUMADIN) 5 mg tabletsacubitril-valsartan (ENTRESTO) 49-51 mg tabletDOCUSATE CALCIUM (STOOL SOFTENER ORAL)Omeprazole Magnesium (PRILOSEC OTC) 20 mg tabletondansetron (ZOFRAN) 4 mg tabletmetoprolol succinate ER (TOPROL XL) 25 mg 24 hr tabletamiodarone (PACERONE) 200 mg tabletcyclobenzaprine (FLEXERIL) 10 mg tabletwarfarin (COUMADIN) 3 mg tabletmeclizine (ANTIVERT) 25 mg tabCOMPOUNDED PRESCRIPTIONCOMPOUNDED PRESCRIPTIONnitroglycerin sublingual (NITROQUICK) 0.[address] (PROTONIX) 40 mg tabletwarfarin (COUMADIN) 2 mg tabletfluticasone (FLONASE) 50 mcg/actuation nasal spraymagnesium oxide (MAG-OX) 400 mg tabletaspirin, enteric coated (ECOTRIN LOW STRENGTH) 81 mg EC tabletAdmission/Clinic Administered Medications as of 02/11/17:NaCl 0.9% iv infusionProblem List:Lumbago [M54.5]Sciatica [M54.30]Pain in joint, other specified sites [M25.50]Mixed hyperlipidemia [E78.2]Cerebral infarction (HCC) [I63.9]Essential hypertension [I10]Impaired fasting glucose [R73.01]Brain tumor (HCC) [D49.6]Pain in joint, pelvic region and thigh [M25.559]Coronary atherosclerosis [I25.10]Ischemic dilated cardiomyopathy (HCC) [I25.5, I42.0]S/P coronary artery stent placement [Z95.5]GERD (gastroesophageal reflux disease) [K21.9]Presence of stent in LAD coronary artery [Z95.5]ICD (implantable cardioverter-defibrillator ) discharge [Z45.02]Paroxysmal atrial fibrillation (HCC) [I48.0]VT (ventricular tachycardia) (HCC) [I47.2]Renal insufficiency [N28.9]Chronic anticoagulation [Z79.01]Encounter for monitoring anti-arrhythmic therapy [Z51.81, Z79.899]Dyspepsia [R10.13]Nausea [R11.0]Epigastric abdominal pain [R10.13]Allergies:Gemfibro zilNexium [Esomeprazole Magnesium]Date Verified: 02/11/17Lab ValuesNo results within the last 30 days for the following basenames: K,HCTProgress Notes ([facility]):Diana Toscano LPN 02/03/2017 1:42 PM SignedPatient has been identified by name and date of : YesRX INSTRUCTIONS:Patient aware RX will be sent to pharmacy. No need to notify patient. He wantsEntresto to go to local pharmacy. He is also aware that the pantoprazole mayneed to be filled by PCP.Ember Esposito MD 02/03/2017 2:23 PM SignedThe following approved medication requests have been transmitted electronically.Signed Prescriptions Disp Refills atorvastatin (LIPITOR) 40 mg tablet 90 tablet 3 Sig: Take 1 tablet by mouth once daily. LOWELL: No Authorizing Provider: KIRK JOHNSTON warfarin (COUMADIN) 5 mg tablet 90 tablet 3 Sig: Take 1 tablet by mouth once daily. DIRECTED with 2 mg pills LOWELL: No Authorizing Provider: KIRK JOHNSTON sacubitril-valsartan (ENTRESTO) 49-51 mg tablet 60 tablet 0 Sig: Take 1 tablet by mouth twice daily. Replaces lisinopril. LOWELL: No Authorizing Provider: KIRK JOHNSTON ERefused Prescriptions Disp Refills pantoprazole DR (PROTONIX) 40 mg tablet 90 tablet 3 Sig: Take 1 tablet by mouth once daily. LOWELL: No Refused By: KIRK JOHNSTON MD Reason for Refusal: Patient should contact Prescriber TIFFANI Khanrogreggie Notes ([facility]):Diana Toscano LPN 02/03/2017 1:33 PM SignedPlease review INR. Also patient will be having an endoscopy procedure soon andneeds to know if he can hold warfarin for 5 days prior. Please advise.Ember Gauthier MD 02/03/2017 2:20 PM SignedSame dose. [address] Marley does not require holding warfarin 5 days. Okay to hold 2 days.Carlos Thorne LPN 02/03/2017 3:31 PM SignedPatient notified of results and provider's instructions. Patient verbalizesunderstanding.Hodan Toscano LPN [facility] Vital Signs Date Time Vital Sign Value Performing Clinician Ana fritz 07-06-2024 15:35-0400 Body height 175.[address] Luis Hay MD Work Phone: [facility] 07-06-2024 15:35-0400 Body mass index (BMI) [Ratio] 33.6 kg/m2 Dr. Luis Hay MD Work Phone: [facility] 07-06-2024 15:35-0400 Body weight 103.[address] Luis Hay MD Work Phone: [facility] 07-06-2024 15:35-0400 Diastolic blood pressure 74 mm[Hg] Dr. Luis Hay MD Work Phone: [facility] 07-06-2024 15:35-0400 Heart rate 75 /min Dr. Luis Hay MD Work Phone: [facility] 07-06-2024 15:35-0400 Respiratory rate 18 /min Dr. Luis Hay MD Work Phone: [facility] 07-06-2024 15:35-0400 Systolic blood pressure 115 mm[Hg] Dr. Luis Hay MD Work Phone: [facility] 06-06-2024 13:12-0400 Body mass index (BMI) [Ratio] 33.7 kg/m2 Dr. Luis Hay MD Work Phone: [facility] 06-06-2024 13:12-0400 Body weight 103.[address] Luis Hay MD Work Phone: [facility] 06-06-2024 13:12-0400 Diastolic blood pressure 69 mm[Hg] Dr. Luis Hay MD Work Phone: [facility] 06-06-2024 13:12-0400 Heart rate 68 /min Dr. Luis Hay MD Work Phone: [facility] 06-06-2024 13:12-0400 Respiratory rate 18 /min Dr. Luis Hay MD Work Phone: [facility] 06-06-2024 13:12-0400 SaO2% (BldA) [Mass fraction] 92 % Dr. Luis Hay MD Work Phone: [facility] 06-06-2024 13:12-0400 Systolic blood pressure 100 mm[Hg] Dr. Luis Hay MD Work Phone: [facility] 06-04-2024 04:22-0400 Body temperature 98.4 [degF] Dr. Luis Hay MD Work Phone: [facility] 06-04-2024 04:22-0400 Diastolic blood pressure 84 mm[Hg] Dr. Luis Hay MD Work Phone: [facility] 06-04-2024 04:22-0400 Heart rate 63 /min Dr. Luis Hay MD Work Phone: [facility] 06-04-2024 04:22-0400 Respiratory rate 17 /min Dr. Luis Hay MD Work Phone: [facility] 06-04-2024 04:22-0400 SaO2% (BldA) [Mass fraction] 92 % Dr. Luis Hay MD Work Phone: [facility] 06-04-2024 04:22-0400 Systolic blood pressure 117 mm[Hg] Dr. Luis Hay MD Work Phone: [facility] 06-04-2024 01:35-0400 Body height 175.[address] Luis Hay MD Work Phone: [facility] 06-04-2024 01:35-0400 Body mass index (BMI) [Ratio] 34.1 kg/m2 Dr. Luis Hay MD Work Phone: [facility] 06-04-2024 01:35-0400 Body weight 104.[address] Luis Hay MD Work Phone: [facility] 04-28-2024 14:29-0400 Body height 175.[address] Luis Hay MD Work Phone: [facility] 04-28-2024 14:29-0400 Body mass index (BMI) [Ratio] 33.3 kg/m2 Dr. Luis Hay MD Work Phone: [facility] 04-28-2024 14:29-0400 Body temperature 98.2 [degF] Dr. Luis Hay MD Work Phone: [facility] 04-28-2024 14:29-0400 Body weight 102.[address] Luis Hay MD Work Phone: [facility] 04-28-2024 14:29-0400 Diastolic blood pressure 66 mm[Hg] Dr. Luis Hay MD Work Phone: [facility] 04-28-2024 14:29-0400 Heart rate 84 /min Dr. Luis Hay MD Work Phone: [facility] 04-28-2024 14:29-0400 Respiratory rate 18 /min Dr. Luis Hay MD Work Phone: [facility] 04-28-2024 14:29-0400 SaO2% (BldA) [Mass fraction] 93 % Dr. Luis Hay MD Work Phone: [facility] 04-28-2024 14:29-0400 Systolic blood pressure 134 mm[Hg] Dr. Luis Hay MD Work Phone: [facility] 01-27-2024 14:47-0500 Body mass index (BMI) [Ratio] 32.5 kg/m2 Dr. Luis Hay MD Work Phone: [facility] 01-27-2024 14:47-0500 Body temperature 98 [degF] Dr. Luis Hay MD Work Phone: [facility] 01-27-2024 14:47-0500 Body weight 99.[address] Luis Hay MD Work Phone: [facility] 01-27-2024 14:47-0500 Diastolic blood pressure 62 mm[Hg] Dr. Luis Hay MD Work Phone: [facility] 01-27-2024 14:47-0500 Heart rate 74 /min Dr. Luis Hay MD Work Phone: [facility] 01-27-2024 14:47-0500 Respiratory rate 17 /min Dr. Luis Hay MD Work Phone: [facility] 01-27-2024 14:47-0500 SaO2% (BldA) [Mass fraction] 96 % Dr. Luis Hay MD Work Phone: [facility] 01-27-2024 14:47-0500 Systolic blood pressure 114 mm[Hg] Dr. Luis Hay MD Work Phone: [facility] 04-16-2023 14:22-0500 Body height 175.[address] Luis Hay Work Phone: [facility] 04-16-2023 14:22-0500 Body mass index (BMI) [Ratio] 34.1 kg/m2 Dr. Luis Hay Work Phone: [facility] 04-16-2023 14:22-0500 Body temperature 97.9 [degF] Dr. Luis Hay Work Phone: [facility] 04-16-2023 14:22-0500 Body weight 104.[address] Luis Hay Work Phone: [facility] 04-16-2023 14:22-0500 Diastolic blood pressure 76 mm[Hg] Dr. Luis Hay Work Phone: [facility] 04-16-2023 14:22-0500 Heart rate 60 /min Dr. Luis Hay Work Phone: [facility] 04-16-2023 14:22-0500 Respiratory rate 18 /min Dr. Luis Hay Work Phone: [facility] 04-16-2023 14:22-0500 SaO2% (BldA) [Mass fraction] 96 % Dr. Luis Hay Work Phone: [facility] 04-16-2023 14:22-0500 Systolic blood pressure 122 mm[Hg] Dr. Luis Hay Work Phone: [facility] 01-14-2023 15:27-0500 Body mass index (BMI) [Ratio] 33.5 kg/m2 Dr. Luis Hay Work Phone: [facility] 01-14-2023 15:27-0500 Body temperature 97.6 [degF] Dr. Luis Hay Work Phone: [facility] 01-14-2023 15:27-0500 Body weight 102.[address] Luis Hay Work Phone: [facility] 01-14-2023 15:27-0500 Diastolic blood pressure 72 mm[Hg] Dr. Luis Hay Work Phone: [facility] 01-14-2023 15:27-0500 Heart rate 70 /min Dr. Luis Hay Work Phone: [facility] 01-14-2023 15:27-0500 Respiratory rate 16 /min Dr. Luis Hay Work Phone: [facility] 01-14-2023 15:27-0500 SaO2% (BldA) [Mass fraction] 97 % Dr. Luis Hay Work Phone: [facility] 01-14-2023 15:27-0500 Systolic blood pressure 118 mm[Hg] Dr. Luis Hay Work Phone: [facility] 10-29-2022 14:21-0400 Body height 175.[address] Luis Hay Work Phone: [facility] 10-29-2022 14:21-0400 Body mass index (BMI) [Ratio] 33.6 kg/m2 Dr. Luis Hay Work Phone: [facility] 10-29-2022 14:21-0400 Body temperature 98.1 [degF] Dr. Luis Hay Work Phone: [facility] 10-29-2022 14:21-0400 Body weight 103.[address] Luis Hay Work Phone: [facility] 10-29-2022 14:21-0400 Diastolic blood pressure 62 mm[Hg] Dr. Luis Hay Work Phone: [facility] 10-29-2022 14:21-0400 Heart rate 72 /min Dr. Luis Hay Work Phone: [facility] 10-29-2022 14:21-0400 Respiratory rate 16 /min Dr. Luis Hay Work Phone: [facility] 10-29-2022 14:21-0400 SaO2% (BldA) [Mass fraction] 98 % Dr. Luis Hay Work Phone: [facility] 10-29-2022 14:21-0400 Systolic blood pressure 106 mm[Hg] Dr. Luis Hay Work Phone: [facility] 08-20-2022 14:12-0400 Body height 175.[address] Luis Hay Work Phone: [facility] 08-20-2022 14:12-0400 Body mass index (BMI) [Ratio] 33.2 kg/m2 Dr. Luis Hay Work Phone: [facility] 08-20-2022 14:12-0400 Body weight 102.[address] Luis Hay Work Phone: [facility] 08-20-2022 14:12-0400 Diastolic blood pressure 66 mm[Hg] Dr. Luis Hay Work Phone: [facility] 08-20-2022 14:12-0400 Heart rate 73 /min Dr. Luis Hay Work Phone: [facility] 08-20-2022 14:12-0400 Respiratory rate 22 /min Dr. Luis Hay Work Phone: [facility] 08-20-2022 14:12-0400 SaO2% (BldA) [Mass fraction] 94 % Dr. Luis Hay Work Phone: [facility] 08-20-2022 14:12-0400 Systolic blood pressure 105 mm[Hg] Dr. Luis Hay Work Phone: [facility] 08-08-2022 09:29-0400 Body mass index (BMI) [Ratio] 32.9 kg/m2 Dr. Luis Hay Work Phone: [facility] 08-08-2022 09:29-0400 Body temperature 97.7 [degF] Dr. Luis Hay Work Phone: [facility] 08-08-2022 09:29-0400 Body weight 101.[address] Luis Hay Work Phone: [facility] 08-08-2022 09:29-0400 Diastolic blood pressure 70 mm[Hg] Dr. Luis Hay Work Phone: [facility] 08-08-2022 09:29-0400 Heart rate 93 /min Dr. Luis Hay Work Phone: [facility] 08-08-2022 09:29-0400 Respiratory rate 18 /min Dr. Luis Hay Work Phone: [facility] 08-08-2022 09:29-0400 SaO2% (BldA) [Mass fraction] 95 % Dr. Luis Hay Work Phone: [facility] 08-08-2022 09:29-0400 Systolic blood pressure 98 mm[Hg] Dr. Luis Hay Work Phone: [facility] 07-28-2022 13:48-0400 Body mass index (BMI) [Ratio] 33.3 kg/m2 Dr. Luis Hay Work Phone: [facility] 07-28-2022 13:48-0400 Body temperature 97.6 [degF] Dr. Luis Hay Work Phone: [facility] 07-28-2022 13:48-0400 Body weight 102.[address] Luis Hay Work Phone: [facility] 07-28-2022 13:48-0400 Diastolic blood pressure 62 mm[Hg] Dr. Luis Hay Work Phone: [facility] 07-28-2022 13:48-0400 Heart rate 84 /min Dr. Luis Hay Work Phone: [facility] 07-28-2022 13:48-0400 Respiratory rate 14 /min Dr. Luis Hay Work Phone: [facility] 07-28-2022 13:48-0400 SaO2% (BldA) [Mass fraction] 96 % Dr. Luis Hay Work Phone: [facility] 07-28-2022 13:48-0400 Systolic blood pressure 108 mm[Hg] Dr. Luis Hay Work Phone: [facility] 04-09-2022 13:14-0500 Body height 175.[address] Luis Hay Work Phone: [facility] 04-09-2022 13:14-0500 Body mass index (BMI) [Ratio] 33.7 kg/m2 Dr. Luis Hay Work Phone: [facility] 04-09-2022 13:14-0500 Body weight 103.[address] Luis Hay Work Phone: [facility] 04-09-2022 13:14-0500 Diastolic blood pressure 72 mm[Hg] Dr. Luis Hay Work Phone: [facility] 04-09-2022 13:14-0500 Heart rate 70 /min Dr. Luis Hay Work Phone: [facility] 04-09-2022 13:14-0500 Respiratory rate 18 /min Dr. Luis Hay Work Phone: [facility] 04-09-2022 13:14-0500 SaO2% (BldA) [Mass fraction] 93 % Dr. Luis Hay Work Phone: [facility] 04-09-2022 13:14-0500 Systolic blood pressure 111 mm[Hg] Dr. Luis Hay Work Phone: [facility] 01-23-2022 13:08-0500 Body height 175.[address] Luis Hay Work Phone: [facility] Work Phone: 01-23-2022 13:08-0500 Body mass index (BMI) [Ratio] 33.6 kg/m2 Dr. Luis Hay Work Phone: [facility] 01-23-2022 13:08-0500 Body temperature 98.2 [degF] Dr. Luis Hay Work Phone: [facility] 01-23-2022 13:08-0500 Body weight 103.[address] Luis Hay Work Phone: [facility] 01-23-2022 13:08-0500 Diastolic blood pressure 62 mm[Hg] Dr. Luis Hay Work Phone: [facility] 01-23-2022 13:08-0500 Heart rate 83 /min Dr. Luis Hay Work Phone: [facility] 01-23-2022 13:08-0500 Respiratory rate 16 /min Dr. Luis Hay Work Phone: [facility] 01-23-2022 13:08-0500 SaO2% (BldA) [Mass fraction] 95 % Dr. uLis Hay Work Phone: [facility] 01-23-2022 13:08-0500 Systolic blood pressure 96 mm[Hg] Dr. Luis Hay Work Phone: [facility] 12-12-2021 18:23-0400 Body weight 105.[address] Luis Hay Work Phone: [facility] Work Phone: 11-21-2021 13:58-0400 Body height 175.[address] Luis Hay Work Phone: [facility] Work Phone: 11-21-2021 13:58-0400 Body mass index (BMI) [Ratio] 33.6 kg/m2 Dr. Luis Hay Work Phone: [facility] Work Phone: 11-21-2021 13:58-0400 Body weight 103.[address] Luis Hay Work Phone: [facility] Work Phone: 11-21-2021 13:58-0400 Diastolic blood pressure 72 mm[Hg] Dr. Luis Hay Work Phone: [facility] Work Phone: 11-21-2021 13:58-0400 Heart rate 71 /min Dr. Luis Hay Work Phone: [facility] Work Phone: 11-21-2021 13:58-0400 Respiratory rate 20 /min Dr. Luis Hay Work Phone: [facility] Work Phone: 11-21-2021 13:58-0400 SaO2% (BldA) [Mass fraction] 94 % Dr. Luis Hay Work Phone: [facility] Work Phone: 11-21-2021 13:58-0400 Systolic blood pressure 115 mm[Hg] Dr. Luis Hay Work Phone: [facility] Work Phone: 11-14-2021 17:24-0400 Body weight 104.[address] Luis Hay Work Phone: [facility] Work Phone: 10-21-2021 14:20-0400 Body height 175.[address] Luis Hay Work Phone: [facility] Work Phone: 10-21-2021 14:20-0400 Body weight 102.[address] Luis Hay Work Phone: [facility] Work Phone: 10-18-2021 14:04-0400 Body mass index (BMI) [Ratio] 32.9 kg/m2 Dr. Luis Hay Work Phone: [facility] Work Phone: 10-18-2021 14:04-0400 Body temperature 96.9 [degF] Dr. Luis Hay Work Phone: [facility] Work Phone: 10-18-2021 14:04-0400 Body weight 101.[address] Luis Hay Work Phone: [facility] Work Phone: 10-18-2021 14:04-0400 Diastolic blood pressure 56 mm[Hg] Dr. Luis Hay Work Phone: [facility] Work Phone: 10-18-2021 14:04-0400 Heart rate 71 /min Dr. Luis Hay Work Phone: [facility] Work Phone: 10-18-2021 14:04-0400 Respiratory rate 18 /min Dr. Luis Hay Work Phone: [facility] Work Phone: 10-18-2021 14:04-0400 SaO2% (BldA) [Mass fraction] 95 % Dr. Luis Hay Work Phone: [facility] Work Phone: 10-18-2021 14:04-0400 Systolic blood pressure 94 mm[Hg] Dr. Luis Hay Work Phone: [facility] Work Phone: 09-09-2021 00:32-0400 Body weight 97.[address] Luis Hay Work Phone: [facility] Work Phone: 08-15-2021 17:29-0400 Body height 175.[address] Luis Hay Work Phone: [facility] Work Phone: 08-15-2021 17:29-0400 Body weight 97.[address] Luis Hay Work Phone: [facility] Work Phone: 08-05-2021 14:33-0400 Body height 175.[address] Nidia Geiger Work Phone: [facility] Work Phone: 08-05-2021 14:33-0400 Body mass index (BMI) [Ratio] 31.7 kg/m2 Dr. Nidia Geiger Work Phone: [facility] Work Phone: 08-05-2021 14:33-0400 Body weight 97.[address] Nidia Geiger Work Phone: [facility] Work Phone: 08-05-2021 14:33-0400 Diastolic blood pressure 59 mm[Hg] Dr. Nidia Geiger Work Phone: [facility] Work Phone: 08-05-2021 14:33-0400 Heart rate 73 /min Dr. Nidia Geiger Work Phone: [facility] Work Phone: 08-05-2021 14:33-0400 Respiratory rate 18 /min Dr. Nidia Geiger Work Phone: [facility] Work Phone: 08-05-2021 14:33-0400 Systolic blood pressure 87 mm[Hg] Dr. Nidia Geiger Work Phone: [facility] Work Phone: 07-31-2021 14:50-0400 Body weight 96.[address] Nidia Geiger Work Phone: [facility] Work Phone: 07-17-2021 13:22-0400 Body mass index (BMI) [Ratio] 31.6 kg/m2 Dr. Nidia Geiger Work Phone: [facility] Work Phone: 07-17-2021 13:22-0400 Body temperature 97.9 [degF] Dr. Nidia Geiger Work Phone: [facility] Work Phone: 07-17-2021 13:22-0400 Body weight 97.[address] Nidia Geiger Work Phone: [facility] Work Phone: 07-17-2021 13:22-0400 Diastolic blood pressure 62 mm[Hg] Dr. Nidia Geiger Work Phone: [facility] Work Phone: 07-17-2021 13:22-0400 Heart rate 65 /min Dr. Nidia Geiger Work Phone: [facility] Work Phone: 07-17-2021 13:22-0400 Respiratory rate 16 /min Dr. Nidia Geiger Work Phone: [facility] Work Phone: 07-17-2021 13:22-0400 SaO2% (BldA) [Mass fraction] 95 % Dr. Nidia Geiger Work Phone: [facility] Work Phone: 07-17-2021 13:22-0400 Systolic blood pressure 108 mm[Hg] Dr. Nidia Geiger Work Phone: [facility] Work Phone: 07-10-2021 01:13-0400 Body weight 96.[address] Nidia Geiger Work Phone: [facility] Work Phone: 07-04-2021 10:59-0400 Body height 175.[address] Nidia Geiger Work Phone: [facility] Work Phone: 07-04-2021 10:59-0400 Body weight 96.[address] Nidia Geiger Work Phone: [facility] Work Phone: 07-03-2021 08:54-0400 Body mass index (BMI) [Ratio] 31.4 kg/m2 Dr. Nidia Geiger Work Phone: [facility] Work Phone: 06-27-2021 09:59-0400 Body mass index (BMI) [Ratio] 31.1 kg/m2 Dr. Nidia Geiger Work Phone: [facility] Work Phone: 06-27-2021 09:59-0400 Body temperature 97.8 [degF] Dr. Nidia Geiger Work Phone: [facility] Work Phone: 06-27-2021 09:59-0400 Body weight 95.[address] Nidia Geiger Work Phone: [facility] Work Phone: 06-27-2021 09:59-0400 Diastolic blood pressure 74 mm[Hg] Dr. Nidia Geiger Work Phone: [facility] Work Phone: 06-27-2021 09:59-0400 Heart rate 92 /min Dr. Nidia Geiger Work Phone: [facility] Work Phone: 06-27-2021 09:59-0400 Respiratory rate 17 /min Dr. Nidia Geiger Work Phone: [facility] Work Phone: 06-27-2021 09:59-0400 SaO2% (BldA) [Mass fraction] 96 % Dr. Nidia Geiger Work Phone: [facility] Work Phone: 06-27-2021 09:59-0400 Systolic blood pressure 110 mm[Hg] Dr. Nidia Geiger Work Phone: [facility] Work Phone: 06-27-2021 09:59-0400 Body mass index (BMI) [Ratio] 31.1 kg/m2 Dr. Nidia Geiger Work Phone: [facility] Work Phone: 06-27-2021 09:59-0400 Body temperature 97.8 [degF] Dr. Nidia Geiger Work Phone: [facility] Work Phone: 06-27-2021 09:59-0400 Body weight 95.[address] Nidia Geiger Work Phone: [facility] Work Phone: 06-27-2021 09:59-0400 Diastolic blood pressure 74 mm[Hg] Dr. Nidia Geiger Work Phone: [facility] Work Phone: 06-27-2021 09:59-0400 Heart rate 92 /min Dr. Nidia Geiger Work Phone: [facility] Work Phone: 06-27-2021 09:59-0400 Respiratory rate 17 /min Dr. Nidia Geiger Work Phone: [facility] Work Phone: 06-27-2021 09:59-0400 SaO2% (BldA) [Mass fraction] 96 % Dr. Nidia Geiger Work Phone: [facility] Work Phone: 06-27-2021 09:59-0400 Systolic blood pressure 110 mm[Hg] Dr. Nidia Geiger Work Phone: [facility] Work Phone: 06-26-2021 14:41-0400 Body weight 96.[address] Nidia Geiger Work Phone: [facility] Work Phone: 06-17-2021 09:33-0400 Body mass index (BMI) [Ratio] 31.4 kg/m2 Dr. Nidia Geiger Work Phone: [facility] Work Phone: 06-17-2021 09:33-0400 Body weight 96.[address] Nidia Geiger Work Phone: [facility] Work Phone: 06-17-2021 09:33-0400 Diastolic blood pressure 62 mm[Hg] Dr. Nidia Geiger Work Phone: [facility] Work Phone: 06-17-2021 09:33-0400 Heart rate 78 /min Dr. Nidia Geiger Work Phone: [facility] Work Phone: 06-17-2021 09:33-0400 Respiratory rate 18 /min Dr. Nidia Geiger Work Phone: [facility] Work Phone: 06-17-2021 09:33-0400 SaO2% (BldA) [Mass fraction] 94 % Dr. Nidia Geiger Work Phone: [facility] Work Phone: 06-17-2021 09:33-0400 Systolic blood pressure 101 mm[Hg] Dr. Nidia Geiger Work Phone: [facility] Work Phone: 06-17-2021 09:33-0400 Body mass index (BMI) [Ratio] 31.4 kg/m2 Dr. Nidia Geiger Work Phone: [facility] Work Phone: 06-17-2021 09:33-0400 Body weight 96.[address] Nidia Geiger Work Phone: [facility] Work Phone: 06-17-2021 09:33-0400 Diastolic blood pressure 62 mm[Hg] Dr. Nidia Geiger Work Phone: [facility] Work Phone: 06-17-2021 09:33-0400 Heart rate 78 /min Dr. Nidia Geiger Work Phone: [facility] Work Phone: 06-17-2021 09:33-0400 Respiratory rate 18 /min Dr. Nidia Geiger Work Phone: [facility] Work Phone: 06-17-2021 09:33-0400 SaO2% (BldA) [Mass fraction] 94 % Dr. Nidia Geiger Work Phone: [facility] Work Phone: 06-17-2021 09:33-0400 Systolic blood pressure 101 mm[Hg] Dr. Nidia Geiger Work Phone: [facility] Work Phone: 06-05-2021 13:08-0400 Body mass index (BMI) [Ratio] 32.5 kg/m2 Dr. Nidia Geiger Work Phone: [facility] Work Phone: 06-05-2021 13:08-0400 Body temperature 98.4 [degF] Dr. Nidia Geiger Work Phone: [facility] Work Phone: 06-05-2021 13:08-0400 Body weight 99.[address] Nidia Geiger Work Phone: [facility] Work Phone: 06-05-2021 13:08-0400 Diastolic blood pressure 64 mm[Hg] Dr. Nidia Geiger Work Phone: [facility] Work Phone: 06-05-2021 13:08-0400 Heart rate 84 /min Dr. Nidia Geiger Work Phone: [facility] Work Phone: 06-05-2021 13:08-0400 Respiratory rate 14 /min Dr. Nidia Geiger Work Phone: [facility] Work Phone: 06-05-2021 13:08-0400 SaO2% (BldA) [Mass fraction] 99 % Dr. Nidia Geiger Work Phone: [facility] Work Phone: 06-05-2021 13:08-0400 Systolic blood pressure 106 mm[Hg] Dr. Nidia Geiger Work Phone: [facility] Work Phone: 05-20-2021 13:20-0400 Body weight 97.[address] Nidia Geiger Work Phone: [facility] Work Phone: 05-20-2021 13:20-0400 Diastolic blood pressure 60 mm[Hg] Dr. Nidia Geiger Work Phone: [facility] Work Phone: 05-20-2021 13:20-0400 Heart rate 76 /min Dr. Nidia Geiger Work Phone: [facility] Work Phone: 05-20-2021 13:20-0400 Respiratory rate 18 /min Dr. Nidia Geiger Work Phone: [facility] Work Phone: 05-20-2021 13:20-0400 Systolic blood pressure 102 mm[Hg] Dr. Nidia Geiger Work Phone: [facility] Work Phone: 05-20-2021 13:20-0400 Body weight 97.[address] Nidia Geiger Work Phone: [facility] Work Phone: 05-20-2021 13:20-0400 Diastolic blood pressure 60 mm[Hg] Dr. Nidia Geiger Work Phone: [facility] Work Phone: 05-20-2021 13:20-0400 Heart rate 76 /min Dr. Nidia Geiger Work Phone: [facility] Work Phone: 05-20-2021 13:20-0400 Respiratory rate 18 /min Dr. Nidia Geiger Work Phone: [facility] Work Phone: 05-20-2021 13:20-0400 Systolic blood pressure 102 mm[Hg] Dr. Nidia Geiger Work Phone: [facility] Work Phone: 04-30-2021 10:48-0400 Body mass index (BMI) [Ratio] 31.7 kg/m2 Dr. Nidia Geiger Work Phone: [facility] Work Phone: 04-30-2021 10:48-0400 Body temperature 96.7 [degF] Dr. Nidia Geiger Work Phone: [facility] Work Phone: 04-30-2021 10:48-0400 Body weight 97.[address] Nidia Geiger Work Phone: [facility] Work Phone: 04-30-2021 10:48-0400 Diastolic blood pressure 60 mm[Hg] Dr. Nidia Geiger Work Phone: [facility] Work Phone: 04-30-2021 10:48-0400 Heart rate 67 /min Dr. Nidia Geiger Work Phone: [facility] Work Phone: 04-30-2021 10:48-0400 Respiratory rate 16 /min Dr. Nidia Geiger Work Phone: [facility] Work Phone: 04-30-2021 10:48-0400 SaO2% (BldA) [Mass fraction] 98 % Dr. Nidia Geiger Work Phone: [facility] Work Phone: 04-30-2021 10:48-0400 Systolic blood pressure 112 mm[Hg] Dr. Nidia Geiger Work Phone: [facility] Work Phone: 04-30-2021 10:48-0400 Body height 175.[address] Nidia Geiger Work Phone: [facility] Work Phone: 04-30-2021 10:48-0400 Body mass index (BMI) [Ratio] 31.7 kg/m2 Dr. Nidia Geiger Work Phone: [facility] Work Phone: 04-30-2021 10:48-0400 Body temperature 96.7 [degF] Dr. Nidia Geiger Work Phone: [facility] Work Phone: 04-30-2021 10:48-0400 Body weight 97.[address] Nidia Geiger Work Phone: [facility] Work Phone: 04-30-2021 10:48-0400 Diastolic blood pressure 60 mm[Hg] Dr. Nidia Geiger Work Phone: [facility] Work Phone: 04-30-2021 10:48-0400 Heart rate 67 /min Dr. Nidia Geiger Work Phone: [facility] Work Phone: 04-30-2021 10:48-0400 Respiratory rate 16 /min Dr. Nidia Geiger Work Phone: [facility] Work Phone: 04-30-2021 10:48-0400 SaO2% (BldA) [Mass fraction] 98 % Dr. Nidia Geiger Work Phone: [facility] Work Phone: 04-30-2021 10:48-0400 Systolic blood pressure 112 mm[Hg] Dr. Nidia Geiger Work Phone: [facility] Work Phone: 07-11-2020 14:01-0400 Body mass index (BMI) [Ratio] 34.1 kg/m2 Dr. Nidia Geiger Work Phone: [facility] Work Phone: 07-11-2020 14:040 Body mass index (BMI) [Ratio] 34.1 kg/m2 Dr. Nidia Geiger Work Phone: [facility] Work Phone: Encounters Encounter Date Encounter Type Care Provider Facility Start: 07-22-2024 ambulatory Efewongbe Oleghe Fac[facility] ty:[facility] Start: 07-21-2024 ambulatory Efewongbe Oleghe Facili ty:[facility] Start: 07-08-2024 ambulatory E[facility]ongbe Oleghe [facility] Start: 07-06-2024 End: 07-06-2024 [facility] Start: 07-06-2024 End: 07-06-[address] Luis Hay MD Work Phone: [facility] Work Phone: Start: 06-24-2024 ambulatory [facility] Start: 06-24-2024 Non-patient / Non-visit Dr. Royce Hay MD -[facility] Work Phone: Start: 06-06-2024 End: 06-06-2024 [facility]: Start: 06-06-2024 End: 06-06-2024 ambulatory Efewongbe Oleghe Facility:[facility] Start: 06-04-2024 End: 06-04-2024 Emergency department patient visit Dr. Luis Hay MD Work Phone: -Emergency Department Work Phone: Start: 05-27-2024 ambulatory E[facility] Oleghe [facility] Start: 05-27-2024 Non-patient / Non-visit Dr. Royce Hay MD -[facility] Work Phone: Start: 05-18-2024 End: 05-18-2024 ambulatory Efewongbe Oleghe Facility:[facility] Start: 05-18-2024 End: 05-18-[address] Barry Odom MD -[facility] Work Phone: Start: 05-13-2024 ambulatory E[facility] Oleghe [facility] Start: 05-13-2024 Non-patient / Non-visit Dr. Royce Hay MD -[facility] Work Phone: Start: 04-29-2024 ambulatory Efewongbe Oleghe Fac[facility] Start: 04-29-2024 Non-patient / Non-visit Dr. Royce Hay MD -[facility] Work Phone: Start: 04-28-2024 End: 04-28-[address] Luis Hay MD -[facility] Work Phone: Start: 04-28-2024 End: 04-28-[address] Luis Hay MD Work Phone: [facility] Work Phone: Start: 04-28-2024 End: 04-28-2024 ambulatory Efewongbe Oleghe Facility:[facility] Start: 04-20-2024 End: 04-20-2024 ambulatory Efewongbe Oleghe Facility:[facility] Start: 04-20-2024 End: 04-20-[address] Barry Odom MD -[facility] Work Phone: Start: 04-08-2024 ambulatory E[facility]ongbe Oleghe Fac[facility] ty:[facility] Start: 04-08-2024 Non-patient / Non-visit Dr. Royce Hay MD -[facility] Work Phone: Start: 03-31-2024 End: 03-31-[address] Tony Campos MD -Laboratory Work Phone: Start: 03-31-2024 End: 03-31-2024 ambulatory Efewongbe Olee Facility:[facility] Start: 03-20-2024 ambulatory Efewongbe Oleghe Facili ty:[facility] Start: 03-20-2024 Non-patient / Non-visit Dr. Royce Hay MD -[facility] Work Phone: Start: 03-11-2024 ambulatory E[facility]be Oleghe Fac[facility] Start: 03-11-2024 Non-patient / Non-visit Dr. Royce Hay MD -[facility] Work Phone: Start: 02-17-2024 End: 02-17-2024 [facility] Start: 02-17-2024 End: 02-17-[address] Barry Odom MD -[facility] Work Phone: Start: 02-17-2024 End: 02-17-2024 [facility] Facility:[facility] Start: 02-05-2024 ambulatory Efewongbe [facility] Fac[facility] ty:[facility] Start: 02-05-2024 Non-patient / Non-visit Dr. Royce Hay MD -[facility] Work Phone: Start: 02-01-2024 End: 02-01-[address] Luis Hay MD -Laboratory Work Phone: Start: 02-01-2024 End: 02-01-2024 ambulatory Efewongbe Olee Facility:[facility] Start: 01-27-2024 End: 01-27-[address] Luis Hay MD -[facility] Work Phone: Start: 01-27-2024 End: 01-27-2024 [facility] Start: 01-27-2024 End: 01-27-2024 [facility] Start: 01-25-2024 ambulatory Efewongbe Oleghe Facili ty:[facility] Start: 01-25-2024 Non-patient / Non-visit Dr. Royce Hay MD -[facility] Work Phone: Start: 01-08-2024 ambulatory E[facility]be Oleghe Fac[facility] Start: 01-08-2024 Non-patient / Non-visit Dr. Royce Hay MD -[facility] Work Phone: Start: 01-04-2024 End: 01-04-2024 ambulatory Efewongbe Oleghe Facility:[facility] Start: 12-25-2023 ambulatory Efewongbe Oleghe Fac[facility] ty:[facility] Start: 12-18-2023 ambulatory Efewongbe Oleghe Facili [facility] Start: 12-10-2023 End: 12-10-2023 ambulatory Efewongbe Oleghe Facility:[facility] Start: 12-04-2023 ambulatory Efewongbe Oleghe Facili ty:[facility] Start: 11-20-2023 ambulatory Efewongbe Oleghe Facili ty:[facility] Start: 11-18-2023 End: 11-18-2023 ambulatory Efewongbe Oleghe Facility:[facility] Start: 11-06-2023 ambulatory Efewongbe Oleghe Fac[facility] ty:[facility] Start: 10-23-2023 ambulatory Efewongbe Oleghe Fac[facility] ty:[facility] Start: 10-21-2023 End: 10-21-2023 ambulatory Efewongbe Oleghe Facility:[facility] Start: 10-09-2023 ambulatory Efewongbe Oleghe Facili ty:[facility] Start: 10-07-2023 End: 10-07-2023 ambulatory Prasanna Dsouza Facility:[facility] Start: 10-02-2023 ambulatory Efewongbe Oleghe Fac[facility] ty:[facility] Start: 09-28-2023 ambulatory Efewongbe Oleghe Fac[facility] Start: 09-28-2023 End: 09-30-2023 Evaluation and management of inpatient Terri Osborn Facility:[facility] Start: 09-25-2023 ambulatory Efewongbe Oleghe Fac[facility] Start: 09-18-2023 End: 09-18-2023 ambulatory Efadalgisaongbe Oleghe Facility:[facility] Start: 09-11-2023 ambulatory Efewongbe Oleghe Fac[facility] Start: 08-28-2023 ambulatory Efewongbe Oleghe Fac[facility] Start: 08-19-2023 End: 08-19-2023 ambulatory Efewongbe Oleghe Facility:[facility] Start: 08-14-2023 ambulatory Efewongbe Oleghe Fac[facility] Start: 08-07-2023 ambulatory E[facility]be Oleghe [facility] Start: 07-31-2023 ambulatory E[facility] Oleghe [facility] Start: 07-31-2023 End: 07-31-2023 ambulatory Efewongbe Oledarelle Facility:[facility] Start: 04-16-2023 End: 04-16-[address] Luis Hay Work Phone: [facility] Work Phone: Start: 04-15-2023 End: 04-15-[address] Luis Hay Work Phone: [facility] Work Phone: Start: 04-15-2023 End: 04-15-[address] Luis Hay Work Phone: [facility] [place] Start: 04-10-2023 Non-patient / Non-visit Dr. Royce Hay Work Phone: [facility] Work Phone: Start: 03-30-2023 Non-patient / Non-visit Dr. Royce Hay Work Phone: [facility] Work Phone: Start: 03-23-2023 End: 03-23-[address] Luis Hay Work Phone: [facility] Work Phone: Start: 03-13-2023 Non-patient / Non-visit Dr. Royce Hay Work Phone: [facility] Work Phone: Start: 02-27-2023 Non-patient / Non-visit Dr. Royce Hay Work Phone: [facility] Work Phone: Start: 2023 Non-patient / Non-visit Dr. Royce Hay Work Phone: [facility] Work Phone: Start: 02-18-2023 End: 02-18-[address] Luis Hay Work Phone: [facility] Work Phone: Start: 02-06-2023 Non-patient / Non-visit Dr. Royce Hay Work Phone: [facility] Work Phone: Start: 01-18-2023 Non-patient / Non-visit Dr. Royce Hay Work Phone: [facility] Work Phone: Start: 01-14-2023 End: 01-14-[address] Luis Hay Work Phone: [facility] Work Phone: Start: 12-29-2022 Non-patient / Non-visit Dr. Royce Hay Work Phone: [facility] Work Phone: Start: 12-21-2022 End: 12-21-[address] Luis Hay Work Phone: [facility] Work Phone: Start: 10-31-2022 Non-patient / Non-visit Dr. Royce Hay Work Phone: [facility] Work Phone: Start: 10-29-2022 End: 10-29-[address] Luis Hay Work Phone: [facility] Work Phone: Start: 10-29-2022 End: 10-29-[address] Luis Hay Work Phone: [facility] Work Phone: Start: 10-22-2022 End: 10-22-[address] Luis Hay Work Phone: [facility] Work Phone: Start: 10-22-2022 End: 10-22-[address] Luis Hay Work Phone: [facility] [place] Start: 10-10-2022 Non-patient / Non-[facility]: Start: 09-27-2022 Non-patient / Non-visit Dr. Royce Hay Work Phone: [facility] Work Phone: Start: 09-14-2022 Non-patient / Non-visit Dr. Royce Hay Work Phone: [facility] Work Phone: Start: 08-29-2022 Non-patient / Non-visit [facility]. Royce Hay [facility] Work Phone: Start: 08-20-2022 End: 08-20-[address] Luis Hay Work Phone: [facility] Work Phone: Start: 08-16-2022 Non-patient / Non-visit [facility]. Royce Hay [facility] Work Phone: Start: 08-08-2022 End: 08-08-[address] Luis Hay Work Phone: [facility] Work Phone: Start: 07-28-2022 End: 07-28-[address] Luis Hay Work Phone: [facility] Work Phone: Start: 07-25-2022 Non-patient / Non-visit Dr. Royce Hay Work Phone: [facility] Work Phone: Start: 07-15-2022 End: 07-15-[address] Luis Hay Work Phone: [facility] Work Phone: Start: 07-11-2022 Non-patient / Non-visit Dr. Royce Hay Work Phone: [facility] Work Phone: Start: 04-17-2022 Non-patient / Non-visit Dr. Royce Hay Work Phone: [facility] Start: 04-17-2022 End: 04-17-[address] Luis Hay Work Phone: [facility] Work Phone: Start: 04-17-2022 End: 04-17-[address] Luis Hay Work Phone: [facility] Start: 04-14-2022 End: 04-14-[address] Luis Hay Work Phone: [facility] Work Phone: Start: 04-14-2022 End: 04-14-[address] Luis Hay Work Phone: [facility] Start: 04-13-2022 Non-patient / Non-visit Dr. Royce Hay Work Phone: [facility] Start: 04-09-2022 End: 04-09-[address] Luis Hay Work Phone: [facility] Start: 03-19-2022 Non-patient / Non-visit Dr. Royce Hay Work Phone: [facility] Start: 02-28-2022 Non-patient / Non-visit Dr. Royce Hay Work Phone: [facility] Start: 02-17-2022 Non-patient / Non-visit Dr. Royce Hay Work Phone: [facility] Start: 01-31-2022 Non-patient / Non-visit Dr. Royce Hay Work Phone: [facility] Start: 01-23-2022 End: 01-23-[address] Luis Hay Work Phone: [facility] Work Phone: Start: 01-23-2022 End: 01-23-[address] Luis Hay Work Phone: [facility] Start: 01-23-2022 End: 01-23-[address] Luis Hay Work Phone: [facility] Start: 01-22-2022 End: 01-22-[address] Luis Hay Work Phone: [facility] Work Phone: Start: 01-22-2022 End: 01-22-[address] Luis Hay Work Phone: [facility] Start: 01-22-2022 End: 01-22-[address] Luis Hay Work Phone: [facility] Start: 01-17-2022 Non-patient / Non-visit Dr. Royce Hay Work Phone: [facility] Start: 12-30-2021 Non-patient / Non-visit Dr. Royce Hay Work Phone: [facility] Start: 12-20-2021 Non-patient / Non-visit Dr. Royce Hay Work Phone: [facility] Start: 12-12-2021 End: 12-12-[address] Luis Hay Work Phone: [facility] Work Phone: Start: 12-12-2021 End: 12-12-[address] Luis Hay Work Phone: [facility] Start: 11-29-2021 End: 11-29-[address] Luis Hay Work Phone: [facility] Start: 11-29-2021 Non-patient / Non-visit Dr. Royce Hay Work Phone: [facility] Start: 11-21-2021 End: 11-21-[address] Luis Hay Work Phone: [facility] Start: 11-15-2021 Non-patient / Non-visit Dr. Royce Hay Work Phone: [facility] Start: 11-14-2021 End: 12-09-[address] Luis Hay Work Phone: [facility] Work Phone: Start: 11-14-2021 End: 12-09-[address] [facility] Start: 11-10-2021 Non-patient / Non-visit Dr. Royce Hay Work Phone: [facility] Start: 10-25-2021 Non-patient / Non-visit Dr. Royce Hay Work Phone: [facility] Start: 10-21-2021 End: 11-08-[address] Luis Hay Work Phone: [facility] Work Phone: Start: 10-21-2021 End: 11-08-[address] Luis Hay Work Phone: [facility] Start: 10-21-[address] Cherie Hay [facility] Start: 10-18-2021 End: 10-18-[address] Luis Hay Work Phone: [facility] Work Phone: Start: 10-18-2021 End: 10-18-[address] Luis Hay Work Phone: [facility] [place] Start: 10-18-2021 End: 10-18-[address] Luis Hay Work Phone: [facility] Start: 10-11-2021 Non-patient / Non-visit Dr. Royce Hay Work Phone: [facility] Start: 10-09-2021 End: 10-09-[address] Luis Hay Work Phone: [facility] Start: 09-28-2021 End: 09-28-[address] Luis Hay Work Phone: [facility] Start: 09-27-2021 Non-patient / Non-visit Dr. Royce Hay Work Phone: [facility] Start: 09-13-2021 Non-patient / Non-visit Dr. Royce Hay Work Phone: [facility] Start: 09-12-2021 End: 09-12-[address] Luis Hay Work Phone: [facility] Start: 09-12-2021 End: 10-09-[address] Luis Hay Work Phone: [facility] Work Phone: Start: 09-12-2021 End: 10-09-[address] Luis Hay Work Phone: [facility] Start: 09-03-2021 Non-patient / Non-visit Dr. Royce Hay Work Phone: [facility] Start: 08-16-2021 Non-patient / Non-visit Dr. Royce Hay Work Phone: [facility] Start: 08-15-2021 End: 09-08-[address] [facility] Start: 08-05-2021 End: 08-05-[address] Nidia Geiger Work Phone: [facility] Start: 08-05-2021 Telephone encounter No Pcp Int [facility] Comment on above: Refill Request; Dayanna ent Update Start: 08-03-2021 End: 08-03-[address] Nidia Geiger Work Phone: [facility] Start: 08-02-2021 Non-patient / Non-visit Dr. Hailey Geiger Work Phone: [facility] Start: 07-31-2021 End: 08-08-[address] N[facility] Start: 07-19-2021 Non-patient / Non-visit Dr. Hailey Geiger Work Phone: [facility] Start: 07-18-2021 End: 07-18-2021 Patient encounter procedure Dr. Nidia Geiger Work Phone: [facility] Start: 07-17-2021 End: 07-17-[address] Nidia Geiger Work Phone: [facility] Start: 07-15-[address] [facility] Start: 07-11-2021 End: 07-11-[address] Nidia Geiger Work Phone: [facility] Start: 07-05-2021 Non-patient / Non-visit Dr. Hailey Geiger Work Phone: [facility] Start: 07-04-2021 End: 07-04-2021 Admission to same day surgery center Dr. 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 Nidia Geiger Work Phone: [facility]-Pulmonary Medicine [facility] Start: 06-26-2021 End: 07-09-[address] [facility] Start: 06-26-[address] [facility] Start: 06-25-2021 Non-patient / Non-visit Dr. Hailey Geiger Work Phone: [facility] Start: 06-17-2021 End: 06-17-[address] Nidia Geiger Work Phone: [facility] Start: 06-17-2021 End: 06-17-[address] Nidia Geiger Work Phone: [facility] Start: 06-14-2021 Non-patient / Non-visit Dr. Hailey Geiger Work Phone: [facility] Start: 06-13-2021 ambulatory Marie Augustin PA-C Work Phone: Pulmonary Medicine Comment on above: results Start: 06-13-2021 Chart abstracting Marie cameron PA-C Work Phone: Pulmonary Medicine Start: 06-13-2021 E-mail encounter fro m caregiver Marie Cuellar PA-C Work Phone: [facility] Start: 06-07-2021 Non-patient / Non-visit Dr. Hailey Geiger Work Phone: [facility] Start: 06-05-2021 End: 06-05-[address] Nidia Geiger Work Phone: [facility] Start: 05-31-2021 Non-patient / Non-visit Dr. Hailey Geiger Work Phone: [facility] Start: 05-30-2021 ambulatory Beka Cunningham RN [facility] Care Management Comment on above: Community Monitoring Outreach (CDM Outreach) Start: 05-20-2021 End: 05-20-[address] Nidia Geiger Work Phone: [facility] Start: 05-17-2021 Non-patient / Non-visit Dr. Hailey Geiger Work Phone: [facility] Start: 05-03-2021 ambulatory Marie Augustin PA-C Work Phone: Pulmonary Medicine Comment on above: Oxygen tanks and com pressor Change of Doctor Start: 05-03-2021 Non-patient / Non-visit Dr. Hailey Geiger Work Phone: [facility] Start: 05-02-2021 End: 05-02-[address] Nidia Geiger Work Phone: [facility]-Laboratory, Specimen Start: 04-30-2021 End: 04-30-[address] Nidia Geiger Work Phone: [facility], [facility] Start: 04-30-2021 End: 04-30-[address] Nidia Geiger Work Phone: [facility] Start: 04-19-2021 Non-patient / Non-visit Dr. Hailey Geiger Work Phone: [facility] Start: 03-27-2021 End: 03-27-[address] Nidia Geiger Work Phone: [facility] Start: 03-18-2021 Non-patient / Non-visit Dr. Hailey Geiger Work Phone: [facility] Start: 02-13-2021 Non-patient / Non-visit Dr. Hailey Geiger Work Phone: [facility] Start: 01-11-2021 Non-patient / Non-visit Dr. Hailey Geiger Work Phone: [facility] Start: 06-06-2020 End: 06-06-2020 Subsequent hospital visit by physician [facility] Work Phone: Radiology Comment on above: Chronic bilateral th oracic back pain [M54.6, G89.29] Start: 05-24-2018 Patient encounter procedure SOWMYA DENNISON Facility:[facility] Start: 02-15-2018 Patient encounter procedure SOWMYA DENNISON Facility:[facility] Start: 11-02-2017 End: 11-03-2017 Patient encounter procedure SOWMYA DENNISON Facility:[facility] Start: 09-24-2017 End: 09-24-2017 Evaluation and management of inpatient ALIS PERDUE Facility:[facility] Start: 08-17-2017 Patient encounter procedure KIRK JOHNSTON Facility:[facility] Start: 07-27-2017 End: 07-27-2017 Patient encounter procedure SOWMYA DENNISON Facility:[facility] Start: 07-15-2017 End: 07-15-2017 Patient encounter procedure BREANNE GONZALEZ Facility:[facility] Start: 06-08-2017 End: 06-08-2017 Patient encounter procedure KIRK JOHNSTON Facility:[facility] Start: 06-01-2017 End: 06-01-2017 Patient encounter procedure KIRK JOHNSTON Facility:[facility] Start: 05-15-2017 End: 05-15-2017 Patient encounter procedure KIRK JOHNSTON Facility:[facility] Start: 05-01-2017 End: 05-01-2017 Patient encounter procedure LUIS ESPINOSA Facility:[facility] Start: 04-20-2017 End: 04-20-2017 Patient encounter procedure SOWMYA DENNISON Facility:[facility] Start: 04-10-2017 Patient encounter procedure LUIS ESPINOSA Facility:[facility] Start: 03-27-2017 End: 03-27-2017 Patient encounter procedure LUIS ESPINOSA Facility:[facility] Start: 02-16-2017 End: 02-16-2017 Patient encounter procedure KIRK JOHNSTON Facility:[facility] Start: 02-11-2017 End: 02-11-2017 Ambulatory [facility] Procedures Date Procedure Procedure Detail Performing Clinician Start: 06-04-2024 Plain chest X-ray Dr. Luis Hay MD Work Phone: Start: 06-04-[address] Cherie Hay MD Work Phone: Start: 03-31-2024 Prostate specific antigen measurement Dr. Luis Hay MD Work Phone: Comment on above: This test was performed using the TPSA a ssay method for theDimension chemistry system. Values obtained with differentassay methods cannot be used interchangably.When changing PSA assays in the course of monitoring apatient, additional sequential testing should be carriedout to confirm baseline values. Start: 07-15-[address] Luis Hay Work Phone: Start: 07-11-[address] Nidia Geiger Work Phone: Start: 07-01-2021 End: 07-01-[address] Nidia Geiger Work Phone: Start: 12-13-2020 PSA screening Comment on above: Result Comment: Total PSA test methodolo gy used is the Electrochemiluminescence Immunoassay. Performed By: #### L IPNF, PSAS1, HBA1C, CMP ####[facility] [id number] [place], [place] [id number] Start: 06-06-2020 Radex spine thoracic 3 views Nidia cannon MD Work Phone: Start: 06-06-2020 Radiologic exam chest 2 views Nidia burch MD Work Phone: Start: 06-03-2020 Adult depression screening assessment Marie Cuellar PA-C Work Phone: Start: 12-06-2018 Colonoscopy Marie Cuellar PA-C Work Phone: Start: 03-31-2013 History of placement of stent for coronary artery disease S/P coronary artery stent placement Marie Cuellar PA-C Work Phone: Viral antigen assay Dr. Nidia Geiger Work Phone: Plan of Treatment Date Care Activity Detail Author Start: 12-06-2028 Colonoscopy COLONOSCOPY [facility] Start: 12-06-2028 COLORECTAL CANCER SCREENING COLORECTAL CANCER SCREENING [facility] Start: 06-04-2024 [facility] Start: 06-04-2024 [facility] Start: 10-11-2023 Covid-19 Vaccine ( season) Covid-19 Vaccine ( season) [facility] Start: 10-11-2023 Influenza vaccination Influenza Vacc ine (#1) [facility] Start: 02-09-2023 Advance Directive Discussion Advance Directive Discussion [facility] Start: 01-14-2023 Patient referral [facility] Work Phone: Start: 2022 RSV Vaccine (1 - 1-d ose 75+ series) RSV Vaccine (1 - 1-dose 75+ series) [facility] Start: 12-18-2021 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 VISIT ANNUAL PCP TEAM CHRONIC DISEASE VISIT [facility] Start: 12-18-2021 BP CONTROLLED (<130/80) BP CONTROLLE D (<130/80) [facility] Start: 12-13-2021 Creatinine measurement Serum Creatin ine [facility] Start: 12-13-2021 Hepatitis B screening URINE ALBUMIN:CREATININE RATIO [facility] Start: 12-13-2021 Hepatitis B surface antibody level LDL CHOLESTEROL [facility] Start: 12-13-2021 SERUM CREATININE SERUM CREATININE [facility] Start: 06-17-2021 Patient referral [facility] Work Phone: Start: 06-05-2021 Patient referral [facility] Work Phone: Start: 06-03-2021 Adult depression screening assessment DEPRESSION SCREENING [facility] Start: 05-10-2021 Complete blood count Hemoglobin/Adi tocrit [facility] Start: 05-10-2021 HEMOGLOBIN/HEMATOCRIT HEMOGLOBIN/HEM ATOCRIT [facility] Start: 03-15-2021 Hemoglobin A1c measurement HbA1C [facility] Start: 03-15-2021 Hemoglobin A1c/Hemoglobin.total in Blood HBA1C [facility] Start: 02-09-2021 ADVANCE DIRECTIVE DISCUSSION ADVANCE DIRECTIVE DISCUSSION [facility] Start: 10-11-2020 COVID-19 VACCINE (3 - Booster for Moderna series) COVID-19 VACCINE (3 - Booster for Moderna series) [facility] Start: 06-15-2018 Influenza vaccination LUNG CANCER SC REENING [facility] Start: 12-26-2017 FECAL OCCULT BLOOD FECAL OCCULT BLOO D [facility] Start: 1997 SHINGRIX VACCINE (1 of 2) SHINGRIX VACCINE (1 of 2) [facility] Start: 02-21-1992 COLOGUARD (FIT-DNA) COLOGUARD (FIT-D NA) [facility] Start: 02-21-[address] COLONOGRAPHY [facility] Start: 02-21-1992 SIGMOIDOSCOPY SIGMOIDOSCOPY [facility] Start: 1966 Urine microalbumin profile [facility] Start: 1965 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 VISIT ANNUAL PCP TEAM CHRONIC DISEASE VISIT [facility] Start: 1965 Anxiety Screening Anxiety Screening [facility] Start: 1965 BP Controlled (<130/80) BP Controlle d (<130/80) [facility] Start: 1965 Depression Screening Depression Scre ening [facility] Start: 1957 3 comp foot exam completed DIABETIC FOOT EXAM [facility] Start: 1957 Diabetic foot examination Diabetic Foot Exam [facility] Start: 1957 Glaucoma screening Dilated Retinal E xam [facility] Start: 1957 Hepatitis C antibody , confirmatory test DILATED RETINAL EXAM [facility] CT Chest [facility] Evaluation of diagno stic study results [facility] Magnesium measurement [facility] OXIMETRY - NOCTURNAL OXIMETRY - NOCTURNAL Procedures Routine Amiodarone pulmonary toxicity Dyspnea and respiratory abnormalities Ordered: 05/06/2021 [facility] Work Phone: Comment on above: Ordered: 05/06/2021 Patient Education ED AFIB [facility] Work Phone: Patient referral [facility] Work Phone: Urine microalbumin/creatinine ratio measurement [facility] Urine microalbumin/creatinine ratio measurement [facility] Immunizations Immunization Date Immunization Notes Care Provider [facility] 10-21-2023 influenza, injectabl e, quadrivalent, preservative free Dr. Luis Hay MD Work Phone: [facility] 01-14-2023 influenza, injectabl e, quadrivalent, preservative free Dr. Luis Hay Work Phone: [facility] 04-24-2022 tetanus toxoid, redu jazzy diphtheria toxoid, and acellular pertussis vaccine, adsorbed Dr. Luis Hay Work Phone: [facility] 11-20-2021 Covid Pfizer Bivalen t Booster Dr. Luis Hay MD Work Phone: [facility] 02-12-2021 Covid (Moderna) Dr. Ping Hay MD Work Phone: [facility] 10-26-2020 influenza, high-dose , quadrivalent vaccine (FLUZONE HIGH DOSE QUADRIVALENT) Marie Cuellar PA-C Work Phone: [facility] 10-26-2020 influenza virus vacc ine, unspecified formulation Xr [place] Work Phone: [facility] 05-11-2020 COVID-19 vaccine, fu ll dose (MODERNA) Marie Alisa PA-C Work Phone: [facility] Work Phone: 04-13-2020 COVID-19 vaccine, fu ll dose (MODERNA) Marie Alisa PA-C Work Phone: [facility] Work Phone: 11-08-2019 influenza, high-dose , quadrivalent vaccine (FLUZONE HIGH DOSE QUADRIVALENT) Marie Alisa PA-C Work Phone: [facility] Work Phone: 12-13-2018 influenza, high dose seasonal, preservative-free Marie Alisa PA-C Work Phone: [facility] Work Phone: 10-16-2017 influenza, high dose seasonal, preservative-free Marie Alisa PA-C Work Phone: [facility] 12-01-2016 influenza, high dose seasonal, preservative-free Marie Alisa PA-C Work Phone: [facility] Work Phone: 04-02-2016 pneumococcal conjuga te vaccine, 13 valent Marie Alisa PA-C Work Phone: [facility] 01-14-2016 influenza, high dose seasonal, preservative-free Marie Alisa PA-C Work Phone: [facility] 09-27-2012 pneumococcal polysaccharide vaccine, 23 valent No Pcp [facility] Work Phone: Payers Date Payer Category Payer Self-pay [id number] 2022 Private Health Insurance [id number] 2020 Medicare HUMANA MEDICARE HUMANA MEDICARE PPO [id number] 2020-Present [phone] [address] [address] [place] [address] PPO [id number] 2018 Medicare HUMANA MEDICARE ZZZHUMANA MEDICARE PPO PCP / ZZZHUMANA MEDICARE PPO PCP [id number] 2018-2020 [address] [address] [place] [address] PPO [id number] 1947 Unknown [id number] 2.16.840.1.397710.3.579. 2.278 1947 Unknown [id number] 2.16.840.1.269358.3.579. 2.278 1947 Unknown [id number] 2.16.840.1.828325.3.579. 2.278 1947 Unknown [id number] 2.16.840.1.579958.3.579. 2.278 1947 Unknown [id number] 2.16.840.1.117914.3.579. 2.278 1947 Unknown [id number] 2.16.840.1.541446.3.579. 2.278 1947 Unknown [id number] 2.16.840.1.079095.3.579. 2.278 1947 Unknown [id number] 2.16.840.1.971213.3.579. 2.278 1947 Unknown [id number] 2.16.840.1.974459.3.579. 2.278 1947 Unknown [id number] 2.16.840.1.323982.3.579. 2.278 1947 Unknown [id number] 2.16.840.1.273918.3.579. 2.278 1947 Unknown [id number] 2.16.840.1.473106.3.579. 2.278 1947 Unknown [id number] 2.16.840.1.710699.3.579. 2.278 1947 Unknown [id number] 2.16.840.1.464717.3.579. 2.278 1947 Unknown [id number] 2.16.840.1.017533.3.579. 2.278 Self-pay SELF PAY INSURANCE [id number] Unknown [id number] Unknown [id number] 2.16.840.1.194092.3.579. 2.462 Unknown [id number] 2.16840.1.329032.3.579. 2.462 Unknown [id number] 2.16.840.1.897214.3.579. 2.462 Unknown [id number] 2.16840.1.338726.3.579. 2.462 Unknown [id number] 2.16.840.1.506217.3.579. 2.462 Unknown [id number] 2.16.840.1.455061.3.579. 2.462 Unknown [id number] 2.16.840.1.743328.3.579. 2.462 Unknown [id number] 2.16.840.1.016852.3.579. 2.462 Unknown [id number] 2.16.840.1.161261.3.579. 2.462 Unknown [id number] 2.16.840.1.260047.3.579. 2.462 Unknown [id number] 2.16.840.1.551279.3.579. 2.462 Unknown [id number] 2.16.840.1.617014.3.579. 2.462 Unknown [id number] 2.16.840.1.967887.3.579. 2.462 Unknown [id number] 2.16.840.1.031929.3.579. 2.462 Unknown [id number] 2.16.840.1.906931.3.579. 2.462 Unknown [id number] 2.16.840.1.757439.3.579. 2.462 Unknown [id number] 2.16.840.1.708056.3.579. 2.462 Unknown [id number] 2.16.840.1.806308.3.579. 2.462 Unknown [id number] 2.16.840.1.277664.3.579. 2.462 Unknown [id number] 2.16.840.1.488534.3.579. 2.462 Unknown [id number] 2.840.1.292830.3.579. 2.462 Unknown [id number] 2.16840.1.823600.3.579. 2.462 Unknown [id number] 2.16.840.1.777037.3.579. 2.462 Unknown [id number] 2.16.840.1.419424.3.579. 2.462 Unknown [id number] 2.16.840.1.083143.3.579. 2.462 Unknown [id number] 2.16.840.1.371928.3.579. 2.462 Unknown [id number] 2.16.840.1.367055.3.579. 2.462 Unknown [id number] 2.16.840.1.248389.3.579. 2.462 Unknown [id number] 2.16.840.1.021886.3.579. 2.462 Unknown [id number] 2.16.840.1.505864.3.579. 2.462 Unknown [id number] 2.16.840.1.871978.3.579. 2.462 Unknown [id number] 2.16.840.1.126505.3.579. 2.462 Unknown [id number] 2.16.840.1.125960.3.579. 2.462 Unknown [id number] 2.16.840.1.534947.3.579. 2.462 Unknown [id number] 2.16840.1.166679.3.579. 2.462 Unknown [id number] 2.16840.1.097483.3.579. 2.462 Unknown [id number] 2.16840.1.839214.3.579. 2.462 Unknown [id number] 2.16840.1.974581.3.579. 2.462 Unknown [id number] 2.840.1.801445.3.579. 2.462 Unknown [id number] 2.840.1.608710.3.579. 2.462 Unknown [id number] 2.840.1.442445.3.579. 2.462 Unknown [id number] 2.840.1.874045.3.579. 2.462 Unknown [id number] 2.16840.1.492614.3.579. 2.462 Unknown [id number] 2.16840.1.569972.3.579. 2.462 Unknown [id number] 2.16840.1.658955.3.579. 2.462 Unknown [id number] 2.16840.1.487537.3.579. 2.462 Unknown [id number] 2.16840.1.456632.3.579. 2.462 Unknown [id number] 2.16.840.1.984804.3.579. 2.462 Unknown [id number] 2.16840.1.606662.3.579. 2.462 Unknown [id number] 2.16.840.1.804095.3.579. 2.462 Unknown [id number] 2.16.840.1.966956.3.579. 2.462 Unknown [id number] 2.16.840.1.310488.3.579. 2.462 Unknown [id number] 2.16.840.1.636381.3.579. 2.462 Social History Date Type Detail Facility Start: 07-17-2016 End: 06-04-2024 Tobacco smoking status NHIS Ex-smoker [facility] Start: 1953 End: 05-15-2016 History of tobacco use Current smoker [facility] Start: 1953 End: 05-15-2016 History of tobacco use Cigarette Smoker [facility] Start: 07-17-2016 End: 01-15-2020 Cigarettes smoked current (pack per day) - Reported 1 [facility] Start: 07-17-2016 End: 09-17-2017 Tobacco use and exposure Smokeless tobacco non-user [facility] Start: 06-06-2020 End: 12-18-2020 Alcohol intake Current non-drinker of alcohol (finding) [facility] Start: 11-02-2019 End: 12-13-2020 History SDOH Alcohol Frequency 1 [facility] Start: 07-17-2016 History SDOH Alcohol Comment no longer drinks [facility] Start: 11-02-2019 History SDOH Social Connections Phone 5 [facility] Start: 11-02-2019 End: 12-13-2020 History SDOH Social Connections Membership 2 [facility] Start: 11-02-2019 History SDOH Social Connections Living 3 [facility] Start: 11-02-2019 History SDOH Physical Activity DPW 0 [facility] Start: 11-02-2019 History SDOH Financial 4 [facility] Start: 11-02-2019 Education 18 [facility] Start: 09-17-2017 Tobacco Comment Parents smoked in childhood home. Spouse still smokes, though not in home. [facility] Start: 1945 Sex Assigned At Not on file [facility] Start: 04-30-2021 End: 04-16-2023 Tobacco smoking status IAIS Unknown if ever smoked [facility] Start: 12-05-2018 None [facility] Start: 08-23-2017 Spouse/ Significant Other [facility] Start: 06-18-2020 Non-smoker [facility] Start: 1945 Sex Assigned At Male [facility] Start: 11-02-2019 End: 01-15-2020 Social connection and isolation panel [facility] Do you belong to any clubs or organizations such as muslim groups, unions, fraternal or athletic groups, or school groups? No [facility] Are you now , , , , never or living with a partner? [facility] How often to you hav e a drink containing alcohol? Never [facility] Average Number of Drinks Not on file [facility] How hard is it for y ou to pay for the very basics like food, housing, medical care, and heating Not very hard [facility] Do you feel stress - tense, restless, nervous, or anxious, or unable to sleep at night because your mind is troubled all the time - these days [OSQ] To some extent [facility] (I/We) worried yakov er (my/our) food would run out before (I/we) got money to buy more. Never true [facility] Start: 11-02-2019 Gender identity Identifies as male gender (finding) [facility] Start: 05-07-2020 End: 06-06-2020 Exposure to SARS-CoV-2 (event) Not sure [facility] Start: 05-05-2024 End: 06-04-2024 Sex Male (finding) [facility] Medical Equipment Procedure Code Equipment Code Equipment Origin al Text Equipment Identifier Dates Blood Sugar Diag nostic (Freestyle Lite Strips) strip Start: 05-06-2021 Lancets (Freesty le Lancets) 28 gauge misc Start: 05-06-2021 Blood Sugar Diag nostic (Freestyle Lite Strips) strip Start: 05-01-2021 End: 05-06-2021 Lancets (Freesty le Lancets) 28 gauge misc Start: 05-01-2021 End: 05-06-2021 Blood Sugar Diag nostic (Freestyle Lite Strips) strip Start: 05-06-2021 Lancets (Freesty le Lancets) 28 gauge misc Start: 05-06-2021 Blood Sugar Diag nostic (Freestyle Lite Strips) strip Start: 05-01-2021 End: 05-06-2021 Lancets (Freesty le Lancets) 28 gauge misc Start: 05-01-2021 End: 05-06-2021 Blood Sugar Diag nostic (Freestyle Lite Strips) strip Start: 05-06-2021 Lancets (Freesty le Lancets) 28 gauge misc Start: 05-06-2021 Blood Sugar Diag nostic (Freestyle Lite Strips) strip Start: 05-01-2021 End: 05-06-2021 Lancets (Freesty le Lancets) 28 gauge misc Start: 05-01-2021 End: 05-06-2021 ([id number]) Dual-chamber implantable defibrillator ()[id number] [facility] Start: 07-04-2021 Blood Sugar Diag nostic (Freestyle Lite Strips) strip Start: 05-06-2021 Lancets (Freesty le Lancets) 28 gauge misc Start: 05-06-2021 Blood Sugar Diag nostic (Freestyle Lite Strips) strip Start: 05-01-2021 End: 05-06-2021 Lancets (Freesty le Lancets) 28 gauge misc Start: 05-01-2021 End: 05-06-2021 Blood Sugar Diag nostic (Freestyle Lite Strips) strip Start: 05-06-2021 Lancets (Freesty le Lancets) 28 gauge misc Start: 05-06-2021 Blood Sugar Diag nostic (Freestyle Lite Strips) strip Start: 05-01-2021 End: 05-06-2021 Lancets (Freesty le Lancets) 28 gauge misc Start: 05-01-2021 End: 05-06-2021 Blood Sugar Diag nostic (Freestyle Lite Strips) strip Start: 05-06-2021 Lancets (Freesty le Lancets) 28 gauge misc Start: 05-06-2021 Blood Sugar Diag nostic (Freestyle Lite Strips) strip Start: 05-01-2021 End: 05-06-2021 Lancets (Freesty le Lancets) 28 gauge misc Start: 05-01-2021 End: 05-06-2021 Blood Sugar Diag nostic (Freestyle Lite Strips) strip Start: 05-06-2021 Lancets (Freesty le Lancets) 28 gauge misc Start: 05-06-2021 Blood Sugar Diag nostic (Freestyle Lite Strips) strip Start: 05-01-2021 End: 05-06-2021 Lancets (Freesty le Lancets) 28 gauge misc Start: 05-01-2021 End: 05-06-2021 Blood Sugar Diag nostic (Freestyle Lite Strips) strip Start: 05-06-2021 Lancets (Freesty le Lancets) 28 gauge misc Start: 05-06-2021 Blood Sugar Diag nostic (Freestyle Lite Strips) strip Start: 05-01-2021 End: 05-06-2021 Lancets (Freesty le Lancets) 28 gauge misc Start: 05-01-2021 End: 05-06-2021 Blood Sugar Diag nostic (Freestyle Lite Strips) strip Start: 05-06-2021 Lancets (Freesty le Lancets) 28 gauge misc Start: 05-06-2021 Blood Sugar Diag nostic (Freestyle Lite Strips) strip Start: 05-01-2021 End: 05-06-2021 Lancets (Freesty le Lancets) 28 gauge misc Start: 05-01-2021 End: 05-06-2021 Blood Sugar Diag nostic (Freestyle Lite Strips) strip Start: 05-06-2021 Lancets (Freesty le Lancets) 28 gauge misc Start: 05-06-2021 Blood Sugar Diag nostic (Freestyle Lite Strips) strip Start: 05-01-2021 End: 05-06-2021 Lancets (Freesty le Lancets) 28 gauge misc Start: 05-01-2021 End: 05-06-2021 Blood Sugar Diag nostic (Freestyle Lite Strips) strip Start: 05-06-2021 Lancets (Freesty le Lancets) 28 gauge misc Start: 03-28-2022 Blood Sugar Diag nostic (Freestyle Lite Strips) strip Start: 05-01-2021 End: 05-06-2021 Lancets (Freesty le Lancets) 28 gauge misc Start: 05-01-2021 End: 05-06-2021 Blood Sugar Diag nostic (Freestyle Lite Strips) strip Start: 05-06-2021 Lancets (Freesty le Lancets) 28 gauge misc Start: 05-06-2021 Blood Sugar Diag nostic (Freestyle Lite Strips) strip Start: 05-01-2021 End: 05-06-2021 Lancets (Freesty le Lancets) 28 gauge misc Start: 05-01-2021 End: 05-06-2021 Blood Sugar Diag nostic (Freestyle Lite Strips) strip Start: 05-06-2021 Blood Sugar Diag nostic (True Metrix Glucose Test Strip) strip Start: 02-05-2022 Lancets (Freesty le Lancets) 28 gauge misc Start: 05-06-2021 Lancets (Trueplu s Lancets) 33 gauge misc Start: 02-05-2022 Blood Sugar Diag nostic (Freestyle Lite Strips) strip Start: 05-01-2021 End: 05-06-2021 Blood Sugar Diag nostic (True Metrix Glucose Test Strip) strip Start: 02-05-2022 End: 02-05-2022 Lancets (Freesty le Lancets) 28 gauge misc Start: 05-01-2021 End: 05-06-2021 Lancets (Trueplu s Lancets) 33 gauge misc Start: 02-05-2022 End: 02-05-2022 Blood Sugar Diag nostic (Freestyle Lite Strips) strip Start: 05-06-2021 Blood Sugar Diag nostic (True Metrix Glucose Test Strip) strip Start: 02-05-2022 Lancets (Freesty le Lancets) 28 gauge misc Start: 05-06-2021 Lancets (Trueplu s Lancets) 33 gauge misc Start: 02-05-2022 Blood Sugar Diag nostic (Freestyle Lite Strips) strip Start: 05-01-2021 End: 05-06-2021 Blood Sugar Diag nostic (True Metrix Glucose Test Strip) strip Start: 02-05-2022 End: 02-05-2022 Lancets (Freesty le Lancets) 28 gauge misc Start: 05-01-2021 End: 05-06-2021 Lancets (Trueplu s Lancets) 33 gauge misc Start: 02-05-2022 End: 02-05-2022 Blood Sugar Diag nostic (Freestyle Lite Strips) strip Start: 05-06-2021 Blood Sugar Diag nostic (True Metrix Glucose Test Strip) strip Start: 02-05-2022 Lancets (Freesty le Lancets) 28 gauge misc Start: 05-06-2021 Lancets (Trueplu s Lancets) 33 gauge misc Start: 02-05-2022 Blood Sugar Diag nostic (Freestyle Lite Strips) strip Start: 05-01-2021 End: 05-06-2021 Blood Sugar Diag nostic (True Metrix Glucose Test Strip) strip Start: 02-05-2022 End: 02-05-2022 Lancets (Freesty le Lancets) 28 gauge misc Start: 05-01-2021 End: 05-06-2021 Lancets (Trueplu s Lancets) 33 gauge misc Start: 02-05-2022 End: 02-05-2022 Blood Sugar Diag nostic (Freestyle Lite Strips) strip Start: 05-06-2021 Blood Sugar Diag nostic (True Metrix Glucose Test Strip) strip Start: 04-21-2022 Lancets (Freesty le Lancets) 28 gauge misc Start: 05-06-2021 Lancets (Trueplu s Lancets) 33 gauge misc Start: 02-05-2022 Blood Sugar Diag nostic (Freestyle Lite Strips) strip Start: 05-01-2021 End: 05-06-2021 Blood Sugar Diag nostic (True Metrix Glucose Test Strip) strip Start: 02-05-2022 End: 02-05-2022 Blood Sugar Diag nostic (True Metrix Glucose Test Strip) strip Start: 02-05-2022 End: 04-21-2022 Lancets (Freesty le Lancets) 28 gauge misc Start: 05-01-2021 End: 05-06-2021 Lancets (Trueplu s Lancets) 33 gauge misc Start: 02-05-2022 End: 02-05-2022 Blood Sugar Diag nostic (Freestyle Lite Strips) strip Start: 05-06-2021 Blood Sugar Diag nostic (True Metrix Glucose Test Strip) strip Start: 09-10-2022 Lancets (Freesty le Lancets) 28 gauge misc Start: 05-06-2021 Lancets (Trueplu s Lancets) 33 gauge misc Start: 10-27-2022 Blood Sugar Diag nostic (Freestyle Lite Strips) strip Start: 05-01-2021 End: 05-06-2021 Blood Sugar Diag nostic (True Metrix Glucose Test Strip) strip Start: 02-05-2022 End: 02-05-2022 Blood Sugar Diag nostic (True Metrix Glucose Test Strip) strip Start: 02-05-2022 End: 04-21-2022 Blood Sugar Diag nostic (True Metrix Glucose Test Strip) strip Start: 04-21-2022 End: 06-05-2022 Blood Sugar Diag nostic (True Metrix Glucose Test Strip) strip Start: 06-05-2022 End: 06-06-2022 Blood Sugar Diag nostic (True Metrix Glucose Test Strip) strip Start: 06-06-2022 End: 09-10-2022 Blood Sugar Diag nostic (True Metrix Glucose Test Strip) strip Start: 09-10-2022 End: 09-10-2022 Lancets (Freesty le Lancets) 28 gauge misc Start: 05-01-2021 End: 05-06-2021 Lancets (Trueplu s Lancets) 33 gauge misc Start: 02-05-2022 End: 02-05-2022 Lancets (Trueplu s Lancets) 33 gauge misc Start: 02-05-2022 End: 06-05-2022 Lancets (Trueplu s Lancets) 33 gauge misc Start: 06-05-2022 End: 06-06-2022 Lancets (Trueplu s Lancets) 33 gauge misc Start: 06-06-2022 End: 08-11-2022 Lancets (Trueplu s Lancets) 33 gauge misc Start: 08-11-2022 End: 10-27-2022 Blood Sugar Diag nostic (Freestyle Lite Strips) strip Start: 05-06-2021 Blood Sugar Diag nostic (True Metrix Glucose Test Strip) strip Start: 09-10-2022 Lancets (Freesty le Lancets) 28 gauge misc Start: 05-06-2021 Lancets (Trueplu s Lancets) 33 gauge misc Start: 10-27-2022 Blood Sugar Diag nostic (Freestyle Lite Strips) strip Start: 05-01-2021 End: 05-06-2021 Blood Sugar Diag nostic (True Metrix Glucose Test Strip) strip Start: 02-05-2022 End: 02-05-2022 Blood Sugar Diag nostic (True Metrix Glucose Test Strip) strip Start: 02-05-2022 End: 04-21-2022 Blood Sugar Diag nostic (True Metrix Glucose Test Strip) strip Start: 04-21-2022 End: 06-05-2022 Blood Sugar Diag nostic (True Metrix Glucose Test Strip) strip Start: 06-05-2022 End: 06-06-2022 Blood Sugar Diag nostic (True Metrix Glucose Test Strip) strip Start: 06-06-2022 End: 09-10-2022 Blood Sugar Diag nostic (True Metrix Glucose Test Strip) strip Start: 09-10-2022 End: 09-10-2022 Lancets (Freesty le Lancets) 28 gauge misc Start: 05-01-2021 End: 05-06-2021 Lancets (Trueplu s Lancets) 33 gauge misc Start: 02-05-2022 End: 02-05-2022 Lancets (Trueplu s Lancets) 33 gauge misc Start: 02-05-2022 End: 06-05-2022 Lancets (Trueplu s Lancets) 33 gauge misc Start: 06-05-2022 End: 06-06-2022 Lancets (Trueplu s Lancets) 33 gauge misc Start: 06-06-2022 End: 08-11-2022 Lancets (Trueplu s Lancets) 33 gauge misc Start: 08-11-2022 End: 10-27-2022 Blood Sugar Diag nostic (Freestyle Lite Strips) strip Start: 05-06-2021 Blood Sugar Diag nostic (True Metrix Glucose Test Strip) strip Start: 11-17-2022 Lancets (Freesty le Lancets) 28 gauge misc Start: 05-06-2021 Lancets (Trueplu s Lancets) 33 gauge misc Start: 10-27-2022 Blood Sugar Diag nostic (Freestyle Lite Strips) strip Start: 05-01-2021 End: 05-06-2021 Blood Sugar Diag nostic (True Metrix Glucose Test Strip) strip Start: 02-05-2022 End: 02-05-2022 Blood Sugar Diag nostic (True Metrix Glucose Test Strip) strip Start: 02-05-2022 End: 04-21-2022 Blood Sugar Diag nostic (True Metrix Glucose Test Strip) strip Start: 04-21-2022 End: 06-05-2022 Blood Sugar Diag nostic (True Metrix Glucose Test Strip) strip Start: 06-05-2022 End: 06-06-2022 Blood Sugar Diag nostic (True Metrix Glucose Test Strip) strip Start: 06-06-2022 End: 09-10-2022 Blood Sugar Diag nostic (True Metrix Glucose Test Strip) strip Start: 09-10-2022 End: 09-10-2022 Blood Sugar Diag nostic (True Metrix Glucose Test Strip) strip Start: 09-10-2022 End: 11-17-2022 Lancets (Freesty le Lancets) 28 gauge misc Start: 05-01-2021 End: 05-06-2021 Lancets (Trueplu s Lancets) 33 gauge misc Start: 02-05-2022 End: 02-05-2022 Lancets (Trueplu s Lancets) 33 gauge misc Start: 02-05-2022 End: 06-05-2022 Lancets (Trueplu s Lancets) 33 gauge misc Start: 06-05-2022 End: 06-06-2022 Lancets (Trueplu s Lancets) 33 gauge misc Start: 06-06-2022 End: 08-11-2022 Lancets (Trueplu s Lancets) 33 gauge misc Start: 08-11-2022 End: 10-27-2022 [id number] [id number] Start: 06-21-2013 Blood Sugar Diag nostic (Freestyle Lite Strips) strip Start: 05-06-2021 Blood Sugar Diag nostic (True Metrix Glucose Test Strip) strip Start: 11-18-2023 Lancets (Freesty le Lancets) 28 gauge misc Start: 10-05-2023 Lancets (Trueplu s Lancets) 33 gauge misc Start: 10-05-2023 Blood Sugar Diag nostic (Freestyle Lite Strips) strip Start: 05-01-2021 End: 05-06-2021 Blood Sugar Diag nostic (True Metrix Glucose Test Strip) strip Start: 02-05-2022 End: 02-05-2022 Blood Sugar Diag nostic (True Metrix Glucose Test Strip) strip Start: 02-05-2022 End: 04-21-2022 Blood Sugar Diag nostic (True Metrix Glucose Test Strip) strip Start: 04-21-2022 End: 06-05-2022 Blood Sugar Diag nostic (True Metrix Glucose Test Strip) strip Start: 06-05-2022 End: 06-06-2022 Blood Sugar Diag nostic (True Metrix Glucose Test Strip) strip Start: 06-06-2022 End: 09-10-2022 Blood Sugar Diag nostic (True Metrix Glucose Test Strip) strip Start: 09-10-2022 End: 09-10-2022 Blood Sugar Diag nostic (True Metrix Glucose Test Strip) strip Start: 09-10-2022 End: 11-17-2022 Blood Sugar Diag nostic (True Metrix Glucose Test Strip) strip Start: 11-17-2022 End: 11-18-2023 Lancets (Freesty le Lancets) 28 gauge misc Start: 05-01-2021 End: 05-06-2021 Lancets (Freesty le Lancets) 28 gauge misc Start: 05-06-2021 End: 10-05-2023 Lancets (Trueplu s Lancets) 33 gauge misc Start: 02-05-2022 End: 02-05-2022 Lancets (Trueplu s Lancets) 33 gauge misc Start: 02-05-2022 End: 06-05-2022 Lancets (Trueplu s Lancets) 33 gauge misc Start: 06-05-2022 End: 06-06-2022 Lancets (Trueplu s Lancets) 33 gauge misc Start: 06-06-2022 End: 08-11-2022 Lancets (Trueplu s Lancets) 33 gauge misc Start: 08-11-2022 End: 10-27-2022 Lancets (Trueplu s Lancets) 33 gauge misc Start: 10-27-2022 End: 10-05-2023 Blood Sugar Diag nostic (Freestyle Lite Strips) strip Start: 05-06-2021 Blood Sugar Diag nostic (True Metrix Glucose Test Strip) strip Start: 11-18-2023 Lancets (Freesty le Lancets) 28 gauge misc Start: 10-05-2023 Lancets (Trueplu s Lancets) 33 gauge misc Start: 10-05-2023 Blood Sugar Diag nostic (Freestyle Lite Strips) strip Start: 05-01-2021 End: 05-06-2021 Blood Sugar Diag nostic (True Metrix Glucose Test Strip) strip Start: 02-05-2022 End: 02-05-2022 Blood Sugar Diag nostic (True Metrix Glucose Test Strip) strip Start: 02-05-2022 End: 04-21-2022 Blood Sugar Diag nostic (True Metrix Glucose Test Strip) strip Start: 04-21-2022 End: 06-05-2022 Blood Sugar Diag nostic (True Metrix Glucose Test Strip) strip Start: 06-05-2022 End: 06-06-2022 Blood Sugar Diag nostic (True Metrix Glucose Test Strip) strip Start: 06-06-2022 End: 09-10-2022 Blood Sugar Diag nostic (True Metrix Glucose Test Strip) strip Start: 09-10-2022 End: 09-10-2022 Blood Sugar Diag nostic (True Metrix Glucose Test Strip) strip Start: 09-10-2022 End: 11-17-2022 Blood Sugar Diag nostic (True Metrix Glucose Test Strip) strip Start: 11-17-2022 End: 11-18-2023 Lancets (Freesty le Lancets) 28 gauge misc Start: 05-01-2021 End: 05-06-2021 Lancets (Freesty le Lancets) 28 gauge misc Start: 05-06-2021 End: 10-05-2023 Lancets (Trueplu s Lancets) 33 gauge misc Start: 02-05-2022 End: 02-05-2022 Lancets (Trueplu s Lancets) 33 gauge misc Start: 02-05-2022 End: 06-05-2022 Lancets (Trueplu s Lancets) 33 gauge misc Start: 06-05-2022 End: 06-06-2022 Lancets (Trueplu s Lancets) 33 gauge misc Start: 06-06-2022 End: 08-11-2022 Lancets (Trueplu s Lancets) 33 gauge misc Start: 08-11-2022 End: 10-27-2022 Lancets (Trueplu s Lancets) 33 gauge misc Start: 10-27-2022 End: 10-05-2023 Blood Sugar Diag nostic (Freestyle Lite Strips) strip Start: 05-06-2021 Blood Sugar Diag nostic (True Metrix Glucose Test Strip) strip Start: 11-18-2023 Lancets (Freesty le Lancets) 28 gauge misc Start: 10-05-2023 Lancets (Trueplu s Lancets) 33 gauge misc Start: 10-05-2023 Blood Sugar Diag nostic (Freestyle Lite Strips) strip Start: 05-01-2021 End: 05-06-2021 Blood Sugar Diag nostic (True Metrix Glucose Test Strip) strip Start: 02-05-2022 End: 02-05-2022 Blood Sugar Diag nostic (True Metrix Glucose Test Strip) strip Start: 02-05-2022 End: 04-21-2022 Blood Sugar Diag nostic (True Metrix Glucose Test Strip) strip Start: 04-21-2022 End: 06-05-2022 Blood Sugar Diag nostic (True Metrix Glucose Test Strip) strip Start: 06-05-2022 End: 06-06-2022 Blood Sugar Diag nostic (True Metrix Glucose Test Strip) strip Start: 06-06-2022 End: 09-10-2022 Blood Sugar Diag nostic (True Metrix Glucose Test Strip) strip Start: 09-10-2022 End: 09-10-2022 Blood Sugar Diag nostic (True Metrix Glucose Test Strip) strip Start: 09-10-2022 End: 11-17-2022 Blood Sugar Diag nostic (True Metrix Glucose Test Strip) strip Start: 11-17-2022 End: 11-18-2023 Lancets (Freesty le Lancets) 28 gauge misc Start: 05-01-2021 End: 05-06-2021 Lancets (Freesty le Lancets) 28 gauge misc Start: 05-06-2021 End: 10-05-2023 Lancets (Trueplu s Lancets) 33 gauge misc Start: 02-05-2022 End: 02-05-2022 Lancets (Trueplu s Lancets) 33 gauge misc Start: 02-05-2022 End: 06-05-2022 Lancets (Trueplu s Lancets) 33 gauge misc Start: 06-05-2022 End: 06-06-2022 Lancets (Trueplu s Lancets) 33 gauge misc Start: 06-06-2022 End: 08-11-2022 Lancets (Trueplu s Lancets) 33 gauge misc Start: 08-11-2022 End: 10-27-2022 Lancets (Trueplu s Lancets) 33 gauge misc Start: 10-27-2022 End: 10-05-2023 Goals Date Patient Goal Desired Activity /State Personal health goal Comment on above: Formatting of this n ote might be different from the original. Remain as Healthy as possible, Prevent Falls Mental Status Date Assessment Result Facility 06-04-2024 Cognitive function Level Of Cons ciousness Awake;Alert;Appropriate;Follow s Commands [facility] Work Phone: Clinical Notes 06-09-2013 to 06-04-2024 Note Date & Type Note Facility 06-04-2024 Discharge summary [facility] 06-04-2024 Radiology Diagnostic study note [facility] Imaging Services [address], [place] [address] Chest 1 View (Portable) MR#: [id number] Acct: [id number] Name: EDUARD LEOS III Rep #: [id number] : 1945 M 79 From: Bill Gifford DO PCP: Dr. Luis Hay MD Status: R EG ER Study:Chest 1 View (Portable) Date of Exam: 06/04/24 Exam# [id number] Ordering Dr: Silverio Cuellar MD PROCEDURE: CHEST 1 VIEW (PORTABLE) 06/04/2024 REASON FOR EXAM: CHEST PAIN TECHNIQUE: Frontal view of the chest. COMPARISON: None. FINDINGS: Cardiomegaly is present. Pulmonary vasculature is within normal limits. No consolidation, pleural effusion, or pneumothorax is present. Left-sided pacemaker is identified. RAD/Chest 1 View (Portable) IMPRESSION: No acute cardiopulmonary process. [facility] CC: Dr. Jeb Cuellar MD; Dr. Luis Hay MD ~ [place]: Signed [facility] 04-28-2024 Evaluation note Diagnosis Onset Date Resolution CKD (chronic kidney disease), stage III chronic April 28, 2024 2:10pm Essential hypertension chronic [facility] 2024 2:10pm Odynophagia chronic April 28, 2 025 2:10pm Type 2 diabetes mellitus chronic April 28, 2024 2:10pm [facility] Work Phone: 1(974) 804-492303-20-2025 Evaluation note* Diagnosis Onset Date Resolution Status Admit Date CKD (chronic kidney disease) , stage III chronic April 28, 2024 2:10pm Essential hypertension chronic [facility] 2024 2:10pm Odynophagia chronic April 28, 2 025 2:10pm Type 2 diabetes mellitus chronic April 28, 2024 2:10pm Amiodarone toxicity chronic June 06, 2024 12:42pm Essential hypertension chronic Ap ril 2024 12:42pm Ischemic cardiomyopathy chronic A pril 2024 12:42pm Mixed hyperlipidemia chronic Apri l 2024 12:42pm PAF (paroxysmal atrial fibrillation) chronic June 06, 2024 12:42pm Presence of implantable cardioverter-defibrillator (ICD) Jun, 2013 chronic June 06, 2024 12:42pm Presence of stent in coronar y artery February, chronic June 06, 2024 12:42pm History of cardiac radiofrequency ablation resolved June 062024 12:42pm Amiodarone toxicity chronic June 102024 3:13pm Essential hypertension chronic Ma y 2024 3:13pm Ischemic cardiomyopathy chronic M ay 2024 3:13pm Mixed hyperlipidemia chronic July 06, 2024 3:13pm PAF (paroxysmal atrial fibrillation) chronic July 06, 2024 3 :13pm Presence of implantable cardioverter-defibrillator (ICD) Jun, 2013 chronic July 06, 2024 3 :13pm Presence of stent in coronar y artery February, chronic July 06, 2024 3 :13pm History of cardiac radiofrequency ablation resolved June 3:13pm [facility] Work Phone: 1(253) 373-126812-18-2024 Evaluation note* Diagnosis Onset Date Resolution Status Admit Date Viral syndrome acute January 092023 2:33pm BPH (benign prostatic hyperplasia) chronic January 26, 2 024 2:33pm CKD (chronic kidney disease) , stage III chronic January 26 2 024 2:33pm Essential hypertension chronic De cember 2023 2:33pm Type 2 diabetes mellitus chronic January 27, 2024 2:33pm CKD (chronic kidney disease) , stage III chronic April 28, 2024 2:10pm Essential hypertension chronic [facility] 2024 2:10pm Odynophagia chronic April 28, 2 025 2:10pm Type 2 diabetes mellitus chronic April 28, 2024 2:10pm [facility] Work Phone: 1(340) 636-878708-21-2024 [facility]06-27-2022 Miscellaneous Notes* Telephone Encounter - Fanny Covington RN - 08/05/2021 1:07 PM EDT [facility] called in trying to get a refill for Pt. Had to notify them that Pt is no longer with a provider at our facility. They report they took us out of their system as his provider. [facility] NoteHNO ID: [id number] Author: Marie Cuellar PA-C Service: ? Author Type: Physician Piston Maker Type: Progress Notes Filed: 06/13/2021 11:08 AM Note Text: Nocturnal Oximetry, RA. 06/04/2021 Recording interval: 9:53:30 High pulse: 80 Low pulse: 53 Highest spO2: 100% Lowest spO2: 77% Time with spO2 < 88%: 77.9 minutes Recommendation: Based on above results, patient is still qualifying for supplemental oxygen at night. Recommend continue with 2 LPM. I have received and reviewed the outside records noted above. Marie Cuellar PA-C [facility] History of Present illness Narrative* Marie Cuellar PA-C - 06/13/2021 11:05 AM EDT Nocturnal Oximetry, RA. 06/04/2021 Recording interval: 9:53:30 High pulse: 80 Low pulse: 53 Highest spO2: 100% Lowest spO2: 77% Time with spO2 < 88%: 77.9 minutes Recommendation: Based on above results, patient is still qualifying for supplemental oxygen at night. Recommend continue with 2 LPM. I have received and reviewed the outside records noted above. Marie Cuellar PA-C [facility] [place] documented in [facility]04-21-2022 NoteHNO ID: [id number] Author: Beka Cunningham RN Service: ? Author Type: Registered Nurse Type: Progress Notes Filed: 05/31/2021 11:05 AM Note Text: PRIMARY CARE COORDINATION QUICK NOTE Provider Action/FYI Pt changed to [facility], no longer has [facility] PCP. Removed name from Care Team Tab. Patient identified by name and date . Nathalie Ireland RN May 30, 2021 4:[address] [facility]04-21-2022 History of Present illness Narrative* Beka Cunningham RN - 05/30/2021 4:54 PM EDT PRIMARY CARE COORDINATION QUICK NOTE Provider Action/FYI Pt changed to [facility], no longer has [facility] PCP. Removed name from Care Team Tab. Patient identified by name and date . Nathalie Ireland RN May 30, 2021 4:54 PM documented in [facility]04-21-2022 NotePatient Outreach ([facility]) EDUARD LEOS ([id number]) 1945 M Date Time Provider Department 05/30/21 BEKA CUNNINGHAM [facility] During your visit today, we recorded the following information about you: Nathalie Ireland RN 05/31/2021 11:05 AM Signed PRIMARY CARE COORDINATION QUICK NOTE Provider Action/FYI Pt changed to [facility], no longer has [facility] PCP. Removed name from Care Team Tab. Patient identified by name and date . Nathalie Ireland RN May 30, 2021 4:54 PM Allergies As of Date: 05/30/2021 Noted Allergy Reaction AMIODARONE 02/17/2018 14 - Other: See Comments Comments: Pulmonary fibrosis [facility] 12/18/2020 14 - Other: See Comments GEMFIBROZIL 02/26/2009 5 - Intolerance Comments: Upset stomach; constipation NEXIUM (ESOMEPRAZOLE MAGNESIUM) 01/26/2017 8 - GI Upset Date Reviewed: 12/18/2020 Reviewed by: Lona Jeronimo Ma - Fully Assessed Reason for Visit: Community Monitoring Outreach [Other] Cmt: CDM Outreach Prescriptions as of 05/31/2021 - pantoprazole DR (PROTONIX) 40 mg tablet Take 1 tablet by mouth twice daily. - cyclobenzaprine (FLEXERIL) 10 mg tablet Take 1 tablet by mouth three times daily as needed for muscle spasm. - atorvastatin (LIPITOR) 40 mg tablet Take 1 tablet by mouth once daily. - sacubitril-valsartan (ENTRESTO) 49-51 mg tablet Take 1 tablet by mouth twice daily. (Moodispaw) - spironolactone (ALDACTONE) 25 mg tablet Take 1 tablet by mouth twice daily. (Moodispaw) - metFORMIN (GLUCOPHAGE) 500 mg tablet Take 1 tablet by mouth daily with breakfast. - Lactobac no.41/Bifidobact no.7 (PROBIOTIC-10 ORAL) Take by mouth. - traZODone (DESYREL) 50 mg tablet Take 1 tablet by mouth daily at bedtime. - famotidine (PEPCID) 20 mg tablet Take 1 tablet by mouth at bedtime as needed. - loperamide HCl (IMODIUM A-D) 2 mg tab Take 1 tablet by mouth as needed. for 3 or more BMs per day - metoprolol succinate ER (TOPROL XL) 50 mg 24 hr tablet Take 1 tablet by mouth once daily. Dr. Odom - furosemide (LASIX) 40 mg tablet Take 1.5 tablets by mouth twice daily. - potassium chloride SR (MICRO-K) 10 mEq CR capsule Take 2 capsules by mouth twice daily. - warfarin (COUMADIN) 5 mg tablet Take 1 tablet by mouth once daily. - warfarin (COUMADIN) 7.5 mg tablet Take 1 tablet by mouth once daily. - COMPOUNDED PRESCRIPTION Oxygen 2-3 L by nasal cannula. Diagnosis hypoxia, systolic heart failure. Pulse oximetry at rest: Pulse oximetry with ambulation: Pulse oximetry with oxygen and ambulation: - ACETAMINOPHEN (TYLENOL EXTRA STRENGTH ORAL) Take 1,000 mg by mouth once daily. As needed - COMPOUNDED PRESCRIPTION Home health S/P ablation for INR checks, assessment and eval of VS, HF and coumadin teaching. Eval for PT. Dx; cardiomyopathy, ID, arrhythmia, CAD, anticoagulation. - COMPOUNDED PRESCRIPTION HH S/P ablation for VT. Pt requires INR, assessment and eval VS, coumadin and HF teaching. Dx: Cardiomyopathy, ID, ventricular arrhythmia, CAD, anticoagulation. - magnesium oxide (MAG-OX) 400 mg tablet 1 tablet twice weekly - aspirin, enteric coated (ECOTRIN LOW STRENGTH) 81 mg EC tablet Take 1 tablet by mouth once daily. Meds Comments as of 06/04/2012: Problem List As Of Date 05/30/2021 Noted Resolved LUMBAGO [M54.50] 10/15/2005 SCIATICA [M54.30] 10/15/2005 CARPAL TUNNEL SYNDROME [G56.00] 01/09/2006 04/05/2007 LATERAL EPICONDYLITIS [M77.10] 01/09/2006 04/05/2007 JOINT PAIN-JOINT NEC [M25.59] 04/05/2007 Mixed hyperlipidemia [E78.2] 12/21/2007 History of cerebral infarction [Z86.73] 02/21/2009 Essential hypertension [I10] 02/26/2009 Impaired fasting glucose [R73.01] 02/26/2009 02/18/2021 Brain tumor (HCC) [D49.6] 02/26/2009 12/14/2020 Pain in Joint, Pelvic Region and Thigh [M25.559]06/12/2009 Coronary atherosclerosis [I25.10] Ischemic dilated cardiomyopathy (HCC) [I25.5, I* S/P coronary artery stent placement [Z95.5] 03/31/2013 GERD (gastroesophageal reflux disease) [K21.9] 04/10/2014 Presence of stent in LAD coronary artery [Z95.5]04/30/2015 ICD (implantable cardioverter-defibrillator) di*07/10/2015 Paroxysmal atrial fibrillation (HCC) [I48.0] 07/10/2015 VT (ventricular tachycardia) (HCC) [I47.2] 07/24/2015 12/14/2020 Renal insufficiency [N28.9] 07/24/2015 Chronic anticoagulation [Z79.01] 10/23/2015 Encounter for monitoring anti-arrhythmic therap*10/23/2015 12/14/2020 Dyspepsia [R10.13] 01/27/2017 12/14/2020 Nausea [R11.0] 01/27/2017 12/14/2020 Epigastric abdominal pain [R10.13] 01/27/2017 Unilateral inguinal hernia without obstruction *02/18/2017 Right groin pain [R10.31] 03/27/2017 Right testicular pain [N50.811] 03/27/2017 Umbilical hernia without obstruction or gangren*03/27/2017 Personal history of ventricular tachycardia [Z8*04/20/2017 Choledocholithiasis [K80.50] 05/01/2017 Right upper quadrant pain [R10.11] 05/01/2017 Live (more content not included)...[facility]03-28-[facility] Miscellaneous Notes* Telephone Encounter - Nidia Geiger MD - 05/06/2021 12:26 PM EDT Patient switched PCP to [facility]. Removed my name as PCP * Telephone Encounter - Lona Jeronimo Ma - 05/03/2021 2:48 PM EDT Appointment cancelled documented in this encounterS[facility]02-[facility]22 NotePatient Outreach ([facility]) EDUARD LEOS ([id number]) 1945 M Date Time Provider Department 03/29/21 BEKA FAROOQ During your visit today, we recorded the following information about you: Nathalie Ireland RN 03/29/2021 10:34 AM Signed [facility] CDM Engagement Provider Action/FYI: Routed Updates to Dr. Geiger-No Action required Spk with Pt, he reports had an episode of dizziness a couple of weeks ago when his BP was 100/62, dizziness resolved, Pt noted he felt it was because he BP was low at that moment. Pt is eating and hydrating well, denies illness. BP ranges from 100-118/62-72 Pt denies feeling lightheaded or dizziness, Instructed on Fall prevention, Instructed to forward BP readings to PCP for consistently low readings, or concerns. Pt verbalized understanding. Denies needs or concerns Contact Made with Patient: Yes Patient identified by name and . Discussed care with patient Jesi trejo name is Nathalie Ireland RN your [employer] from Nidia Geiger MD office at the [facility]. I am reaching out today because I noticed it has been a few weeks since I have seen any responses from you on your questionnaire. I wanted to check on you and make sure you are doing well, and to remind you that your Nidia Geiger MD recommended this program for you so that you can stay better connected to your health. I will be monitoring your responses on the questionnaire to make sure we are not seeing any changes in your health that your Primary Care Physician needs to know about, or looking for improvements and keeping Nidia Geiger MD informed about it all. You and I will check in together anytime a problem arises, and determine a solution. I am here to help you stay healthy, and stay connected to your doctor's office. How can I help you in this program? Nathalie Ireland RN March 29, 2021 10:06 AM Allergies As of Date: 03/29/2021 Noted Allergy Reaction AMIODARONE 02/17/2018 14 - Other: See Comments Comments: Pulmonary fibrosis CLAMS 12/18/2020 14 - Other: See Comments GEMFIBROZIL 02/26/2009 5 - Intolerance Comments: Upset stomach; constipation NEXIUM (ESOMEPRAZOLE MAGNESIUM) 01/26/2017 8 - GI Upset Date Reviewed: 12/18/2020 Reviewed by: Lona Jeronimo Ma - Fully Assessed Reason for Visit: Community Monitoring Outreach [Other] Cmt: CDM Outreach Prescriptions as of 04/02/2021 - cyclobenzaprine (FLEXERIL) 10 mg tablet Take 1 tablet by mouth three times daily as needed for muscle spasm. - atorvastatin (LIPITOR) 40 mg tablet Take 1 tablet by mouth once daily. - sacubitril-valsartan (ENTRESTO) 49-51 mg tablet Take 1 tablet by mouth twice daily. ([place]) - spironolactone (ALDACTONE) 25 mg tablet Take 1 tablet by mouth twice daily. ([place]) - metFORMIN (GLUCOPHAGE) 500 mg tablet Take 1 tablet by mouth daily with breakfast. - Lactobac no.41/Bifidobact no.7 (PROBIOTIC-10 ORAL) Take by mouth. - traZODone (DESYREL) 50 mg tablet Take 1 tablet by mouth daily at bedtime. - famotidine (PEPCID) 20 mg tablet Take 1 tablet by mouth at bedtime as needed. - pantoprazole DR (PROTONIX) 40 mg tablet Take 1 tablet by mouth twice daily. - loperamide HCl (IMODIUM A-D) 2 mg tab Take 1 tablet by mouth as needed. for 3 or more BMs per day - metoprolol succinate ER (TOPROL XL) 50 mg 24 hr tablet Take 1 tablet by mouth once daily. Dr. Odom - furosemide (LASIX) 40 mg tablet Take 1.5 tablets by mouth twice daily. - potassium chloride SR (MICRO-K) 10 mEq CR capsule Take 2 capsules by mouth twice daily. - warfarin (COUMADIN) 5 mg tablet Take 1 tablet by mouth once daily. - warfarin (COUMADIN) 7.5 mg tablet Take 1 tablet by mouth once daily. - COMPOUNDED PRESCRIPTION Oxygen 2-3 L by nasal cannula. Diagnosis hypoxia, systolic heart failure. Pulse oximetry at rest: Pulse oximetry with ambulation: Pulse oximetry with oxygen and ambulation: - ACETAMINOPHEN (TYLENOL EXTRA STRENGTH ORAL) Take 1,000 mg by mouth once daily. As needed - COMPOUNDED PRESCRIPTION [facility] S/P ablation for INR checks, assessment and eval of VS, HF and coumadin teaching. Eval for PT. Dx; cardiomyopathy, ID, arrhythmia, CAD, anticoagulation. - COMPOUNDED PRESCRIPTION S/P ablation for VT. Pt requires INR, assessment and eval VS, coumadin and HF teaching. Dx: Cardiomyopathy, ID, ventricular arrhythmia, CAD, anticoagulation. - magnesium oxide (MAG-OX) 400 mg tablet 1 tablet twice weekly - aspirin, enteric coated (ECOTRIN LOW STRENGTH) 81 mg EC tablet Take 1 tablet by mouth once daily. Meds Comments as of 06/04/2012: Problem List As Of Date 03/29/2021 Noted Resolved LUMBAGO [M54.50] 10/15/2005 SCIATICA [M54.30] 10/15/2005 CARPAL TUNNEL SYNDROME [G56.00] 01/09/2006 04/05/2007 LATERAL EPICONDYLITIS [M77.10] 01/09/2006 04/05/2007 JOINT PAIN-JOINT NEC [M25.59] 02 (more content not included)...[facility]02-18-2022 NoteHNO ID: [id number] Author: Beka Cunningham, RN Service: ? Author Type: Registered Nurse Type: Progress Notes Filed: 03/29/2021 10:34 AM Note Text: inSight CDM Engagement Provider Action/FYI: Routed Updates to Dr. Geiger-No Action required Spk with Pt, he reports had an episode of dizziness a couple of weeks ago when his BP was 100/62, dizziness resolved, Pt noted he felt it was because he BP was low at that moment. Pt is eating and hydrating well, denies illness. BP ranges from 100-118/62-72 Pt denies feeling lightheaded or dizziness, Instructed on Fall prevention, Instructed to forward BP readings to PCP for consistently low readings, or concerns. Pt verbalized understanding. Denies needs or concerns Contact Made with Patient: Yes Patient identified by name and . Discussed care with patient Jesi trejo name is Nathalie Ireland, RN your [employer] from Nidia Geiger MD office at the [facility]. I am reaching out today because I noticed it has been a few weeks since I have seen any responses from you on your questionnaire. I wanted to check on you and make sure you are doing well, and to remind you that your Nidia Geiger MD recommended this program for you so that you can stay better connected to your health. I will be monitoring your responses on the questionnaire to make sure we are not seeing any changes in your health that your Primary Care Physician needs to know about, or looking for improvements and keeping Nidia Geiger MD informed about it all. You and I will check in together anytime a problem arises, and determine a solution. I am here to help you stay healthy, and stay connected to your doctor's office. How can I help you in this program? Nathalie Ireland RN March 29, 2021 10:06 [facility]02-10-2022 NoteHNO ID: [id number] Author: Beka Cunningham RN Service: ? Author Type: Registered Nurse Type: Progress Notes Filed: 03/21/2021 1:49 PM Note Text: INSIGHT CDM ESCALATION Provider Action/FYI: [employer] Questionnaire Triggered call- Pt reported on his Insight Questionnaire he was experiencing any new symptoms related to your chronic condition. 2nd Call to Pt left a message to contact PCP/ [facility]PERATOR office for new or worsening symptoms or concerns. Message received via: InSight - No contact made with patient Left Message for Patient. Jesi my name is Nathalie Ireland RN from the [facility]. I am calling about your responses to our InSight Home Monitoring questionnaire. Sorry I am not able to speak with you. If you have a problem that needs to be addressed by your physician please contact your PCP office?End Outreach Nathalie Ireland RN March 21, 2021 1:[address] [facility]02-10-2022 NoteHNO ID: [id number] Author: Beka Cunningham RN Service: ? Author Type: Registered Nurse Type: Progress Notes Filed: 03/21/2021 1:40 PM Note Text: INSIGHT CDM ESCALATION Provider Action/FYI: [employer] Questionnaire Triggered call Pt reported on his Insight Questionnaire experiencing any new symptoms related to your chronic condition Call to Pt left a message. Message received via: InSight - No contact made with patient Left Message for Patient. Jesi my name is Nathalie Ireland RN from the [facility]. I am calling about your responses to our InSight Home Monitoring questionnaire. Sorry I am not able to speak with you. If you have a problem that needs to be addressed by your physician please contact your PCP office?End Outreach Nathalie Ireland RN March 21, 2021 12:[address] [facility]02-10-2022 NotePatient Outreach ([facility]) CHARISSAEDUARD ([id number]) 1945 M Date Time Provider Department 03/21/21 BEKA FAROOQ During your visit today, we recorded the following information about you: Nathalie Ireland RN 03/21/2021 1:40 PM Signed INSIGHT CDM ESCALATION Provider Action/FYI: [employer] Questionnaire Triggered call Pt reported on his Insight Questionnaire experiencing any new symptoms related to your chronic condition Call to Pt left a message. Message received via: InSight - No contact made with patient Left Message for PatientRenny Dennison my name is Nathalie Ireland RN from the [facility]. I am calling about your responses to our InSight Home Monitoring questionnaire. Sorry I am not able to speak with you. If you have a problem that needs to be addressed by your physician please contact your PCP office?End Outreach Nathalie Ireland RN March 21, 2021 12:21 PM Allergies As of Date: 03/21/2021 Noted Allergy Reaction AMIODARONE 02/17/2018 14 - Other: See Comments Comments: Pulmonary fibrosis CLAMS 12/18/2020 14 - Other: See Comments GEMFIBROZIL 02/26/2009 5 - Intolerance Comments: Upset stomach; constipation NEXIUM (ESOMEPRAZOLE MAGNESIUM) 01/26/2017 8 - GI Upset Date Reviewed: 12/18/2020 Reviewed by: Lona Jeronimo Ma - Fully Assessed Reason for Visit: Insight Escalation [Other] Cmt: [employer] Questionnaire Triggered call Prescriptions as of 03/21/2021 - cyclobenzaprine (FLEXERIL) 10 mg tablet Take 1 tablet by mouth three times daily as needed for muscle spasm. - atorvastatin (LIPITOR) 40 mg tablet Take 1 tablet by mouth once daily. - sacubitril-valsartan (ENTRESTO) 49-51 mg tablet Take 1 tablet by mouth twice daily. ([place]) - spironolactone (ALDACTONE) 25 mg tablet Take 1 tablet by mouth twice daily. ([place]) - metFORMIN (GLUCOPHAGE) 500 mg tablet Take 1 tablet by mouth daily with breakfast. - Lactobac no.41/Bifidobact no.7 (PROBIOTIC-10 ORAL) Take by mouth. - traZODone (DESYREL) 50 mg tablet Take 1 tablet by mouth daily at bedtime. - famotidine (PEPCID) 20 mg tablet Take 1 tablet by mouth at bedtime as needed. - pantoprazole DR (PROTONIX) 40 mg tablet Take 1 tablet by mouth twice daily. - loperamide HCl (IMODIUM A-D) 2 mg tab Take 1 tablet by mouth as needed. for 3 or more BMs per day - metoprolol succinate ER (TOPROL XL) 50 mg 24 hr tablet Take 1 tablet by mouth once daily. Dr. Odom - furosemide (LASIX) 40 mg tablet Take 1.5 tablets by mouth twice daily. - potassium chloride SR (MICRO-K) 10 mEq CR capsule Take 2 capsules by mouth twice daily. - warfarin (COUMADIN) 5 mg tablet Take 1 tablet by mouth once daily. - warfarin (COUMADIN) 7.5 mg tablet Take 1 tablet by mouth once daily. - COMPOUNDED PRESCRIPTION Oxygen 2-3 L by nasal cannula. Diagnosis hypoxia, systolic heart failure. Pulse oximetry at rest: Pulse oximetry with ambulation: Pulse oximetry with oxygen and ambulation: - ACETAMINOPHEN (TYLENOL EXTRA STRENGTH ORAL) Take 1,000 mg by mouth once daily. As needed - COMPOUNDED PRESCRIPTION [facility] S/P ablation for INR checks, assessment and eval of VS, HF and coumadin teaching. Eval for PT. Dx; cardiomyopathy, ID, arrhythmia, CAD, anticoagulation. - COMPOUNDED PRESCRIPTION S/P ablation for VT. Pt requires INR, assessment and eval VS, coumadin and HF teaching. Dx: Cardiomyopathy, ID, ventricular arrhythmia, CAD, anticoagulation. - magnesium oxide (MAG-OX) 400 mg tablet 1 tablet twice weekly - aspirin, enteric coated (ECOTRIN LOW STRENGTH) 81 mg EC tablet Take 1 tablet by mouth once daily. Meds Comments as of 06/04/2012: Problem List As Of Date 03/21/2021 Noted Resolved LUMBAGO [M54.50] 10/15/2005 SCIATICA [M54.30] 10/15/2005 CARPAL TUNNEL SYNDROME [G56.00] 01/09/2006 04/05/2007 LATERAL EPICONDYLITIS [M77.10] 01/09/2006 04/05/2007 JOINT PAIN-JOINT NEC [M25.59] 04/05/2007 Mixed hyperlipidemia [E78.2] 12/21/2007 History of cerebral infarction [Z86.73] 02/21/2009 Essential hypertension [I10] 02/26/2009 Impaired fasting glucose [R73.01] 02/26/2009 02/18/2021 Brain tumor (HCC) [D49.6] 02/26/2009 12/14/2020 Pain in Joint, Pelvic Region and Thigh [M25.559]06/12/2009 Coronary atherosclerosis [I25.10] Ischemic dilated cardiomyopathy (HCC) [I25.5, I* S/P coronary artery stent placement [Z95.5] 03/31/2013 GERD (gastroesophageal reflux disease) [K21.9] 04/10/2014 Presence of stent in LAD coronary artery [Z95.5]04/30/2015 ICD (implantable cardioverter-defibrillator) di*07/10/2015 Paroxysmal atrial fibrillation (HCC) [I48.0] 07/10/2015 VT (ventricular tachycardia) (HCC) [I47.2] 07/24/2015 12/14/2020 Renal insufficiency [N28.9] 07/24/2015 Chronic anticoagulation [Z79.01] 10/23/2015 Encounter for monitoring anti-arrhythmic therap*10/23/2015 12/14/2020 Dyspepsia [R10.13] 01/27/2017 (more content not included)...[facility]02-10-2022 NotePatient Outreach ([facility]) EDUARD LEOS ([id number]) 1945 Andre Date Time Provider Department 03/21/21 BEKA CUNNINGHAM AMBERIN During your visit today, we recorded the following information about you: Nathalie Ireland RN 03/21/2021 1:49 PM Signed INSIGHT CDM ESCALATION Provider Action/FYI: [employer] Questionnaire Triggered call- Pt reported on his Insight Questionnaire he was experiencing any new symptoms related to your chronic condition. 2nd Call to Pt left a message to contact PCP/ [facility] NITRATE OPERATOR office for new or worsening symptoms or concerns. Message received via: InSight - No contact made with patient Left Message for PatientRenny Dennison my name is Nathalie Ireland RN from the [facility]. I am calling about your responses to our InSight Home Monitoring questionnaire. Sorry I am not able to speak with you. If you have a problem that needs to be addressed by your physician please contact your PCP office?End Outreach Nathalie Ireland RN March 21, 2021 1:42 PM Allergies As of Date: 03/21/2021 Noted Allergy Reaction AMIODARONE 02/17/2018 14 - Other: See Comments Comments: Pulmonary fibrosis CLAMS 12/18/2020 14 - Other: See Comments GEMFIBROZIL 02/26/2009 5 - Intolerance Comments: Upset stomach; constipation NEXIUM (ESOMEPRAZOLE MAGNESIUM) 01/26/2017 8 - GI Upset Date Reviewed: 12/18/2020 Reviewed by: Lona Jeronimo Ma - Fully Assessed Reason for Visit: Insight Escalation [Other] Cmt: [employer] Questionnaire Triggered call Prescriptions as of 03/21/2021 - cyclobenzaprine (FLEXERIL) 10 mg tablet Take 1 tablet by mouth three times daily as needed for muscle spasm. - atorvastatin (LIPITOR) 40 mg tablet Take 1 tablet by mouth once daily. - sacubitril-valsartan (ENTRESTO) 49-51 mg tablet Take 1 tablet by mouth twice daily. ([place]) - spironolactone (ALDACTONE) 25 mg tablet Take 1 tablet by mouth twice daily. ([place]) - metFORMIN (GLUCOPHAGE) 500 mg tablet Take 1 tablet by mouth daily with breakfast. - Lactobac no.41/Bifidobact no.7 (PROBIOTIC-10 ORAL) Take by mouth. - traZODone (DESYREL) 50 mg tablet Take 1 tablet by mouth daily at bedtime. - famotidine (PEPCID) 20 mg tablet Take 1 tablet by mouth at bedtime as needed. - pantoprazole DR (PROTONIX) 40 mg tablet Take 1 tablet by mouth twice daily. - loperamide HCl (IMODIUM A-D) 2 mg tab Take 1 tablet by mouth as needed. for 3 or more BMs per day - metoprolol succinate ER (TOPROL XL) 50 mg 24 hr tablet Take 1 tablet by mouth once daily. Dr. Odom - furosemide (LASIX) 40 mg tablet Take 1.5 tablets by mouth twice daily. - potassium chloride SR (MICRO-K) 10 mEq CR capsule Take 2 capsules by mouth twice daily. - warfarin (COUMADIN) 5 mg tablet Take 1 tablet by mouth once daily. - warfarin (COUMADIN) 7.5 mg tablet Take 1 tablet by mouth once daily. - COMPOUNDED PRESCRIPTION Oxygen 2-3 L by nasal cannula. Diagnosis hypoxia, systolic heart failure. Pulse oximetry at rest: Pulse oximetry with ambulation: Pulse oximetry with oxygen and ambulation: - ACETAMINOPHEN (TYLENOL EXTRA STRENGTH ORAL) Take 1,000 mg by mouth once daily. As needed - COMPOUNDED PRESCRIPTION [facility] S/P ablation for INR checks, assessment and eval of VS, HF and coumadin teaching. Eval for PT. Dx; cardiomyopathy, ID, arrhythmia, CAD, anticoagulation. - COMPOUNDED PRESCRIPTION S/P ablation for VT. Pt requires INR, assessment and eval VS, coumadin and HF teaching. Dx: Cardiomyopathy, ID, ventricular arrhythmia, CAD, anticoagulation. - magnesium oxide (MAG-OX) 400 mg tablet 1 tablet twice weekly - aspirin, enteric coated (ECOTRIN LOW STRENGTH) 81 mg EC tablet Take 1 tablet by mouth once daily. Meds Comments as of 06/04/2012: Problem List As Of Date 03/21/2021 Noted Resolved LUMBAGO [M54.50] 10/15/2005 SCIATICA [M54.30] 10/15/2005 CARPAL TUNNEL SYNDROME [G56.00] 01/09/2006 04/05/2007 LATERAL EPICONDYLITIS [M77.10] 01/09/2006 04/05/2007 JOINT PAIN-JOINT NEC [M25.59] 04/05/2007 Mixed hyperlipidemia [E78.2] 12/21/2007 History of cerebral infarction [Z86.73] 02/21/2009 Essential hypertension [I10] 02/26/2009 Impaired fasting glucose [R73.01] 02/26/2009 02/18/2021 Brain tumor (HCC) [D49.6] 02/26/2009 12/14/2020 Pain in Joint, Pelvic Region and Thigh [M25.559]06/12/2009 Coronary atherosclerosis [I25.10] Ischemic dilated cardiomyopathy (HCC) [I25.5, I* S/P coronary artery stent placement [Z95.5] 03/31/2013 GERD (gastroesophageal reflux disease) [K21.9] 04/10/2014 Presence of stent in LAD coronary artery [Z95.5]04/30/2015 ICD (implantable cardioverter-defibrillator) di*07/10/2015 Paroxysmal atrial fibrillation (HCC) [I48.0] 07/10/2015 VT (ventricular tachycardia) (HCC) [I47.2] 07/24/2015 12/14/2020 Renal insufficiency [N28.9] 07/24/2015 Chronic anticoagulation [Z79.01] 10/23/2015 Encounter for monitorin (more content not included)...[facility] 03-07-2021 NotePatient Outreach ([facility]) EDUARD LEOS ([id number]) 1945 Date Time Provider Department 03/07/21 BEKA CUNNINGHAM AMBERIN During your visit today, we recorded the following information about you: Nathalie Ireland RN 03/07/2021 10:49 AM Signed inSight M Engagement Provider Action/FYI: Pt reported 02/28/21 on My Chart [employer] Questionnaire: Do you check your blood pressure at home? Yes (P) ?-patient Have your blood pressure readings been At your goal (P) ?-patient Do you have new or worse shortness of breath with activity? No (P) ?-patient Do you feel like you are dehydrated for any reason, including not being able to eat or drink normally, or having less urine/much darker urine than normal for you? No (P) ?-patient Call to Pt left a message Contact Made with Patient: No, first attempt, left message. Jesi Leos. This is Nathalie M Ireland, RN your [employer] from the [facility]. I am calling to check in with you concerning the MyChart questionnaire you have been receiving from me. I will call you again and am looking forward to speaking with you. ([employer] enters next day in next patient outreach) Nathalie Ireland RN March 07, 2021 10:42 AM Allergies As of Date: 03/07/2021 Noted Allergy Reaction AMIODARONE 02/17/2018 14 - Other: See Comments Comments: Pulmonary fibrosis CLAMS 12/18/2020 14 - Other: See Comments GEMFIBROZIL 02/26/2009 5 - Intolerance Comments: Upset stomach; constipation NEXIUM (ESOMEPRAZOLE MAGNESIUM) 01/26/2017 8 - GI Upset Date Reviewed: 12/18/2020 Reviewed by: Lona Jeronimo Ma - Fully Assessed Reason for Visit: Community Monitoring Outreach [Other] Cmt: CDM Outreach Prescriptions as of 03/08/2021 - cyclobenzaprine (FLEXERIL) 10 mg tablet Take 1 tablet by mouth three times daily as needed for muscle spasm. - atorvastatin (LIPITOR) 40 mg tablet Take 1 tablet by mouth once daily. - sacubitril-valsartan (ENTRESTO) 49-51 mg tablet Take 1 tablet by mouth twice daily. ([place]) - spironolactone (ALDACTONE) 25 mg tablet Take 1 tablet by mouth twice daily. ([place]) - metFORMIN (GLUCOPHAGE) 500 mg tablet Take 1 tablet by mouth daily with breakfast. - Lactobac no.41/Bifidobact no.7 (PROBIOTIC-10 ORAL) Take by mouth. - traZODone (DESYREL) 50 mg tablet Take 1 tablet by mouth daily at bedtime. - famotidine (PEPCID) 20 mg tablet Take 1 tablet by mouth at bedtime as needed. - pantoprazole DR (PROTONIX) 40 mg tablet Take 1 tablet by mouth twice daily. - loperamide HCl (IMODIUM A-D) 2 mg tab Take 1 tablet by mouth as needed. for 3 or more BMs per day - metoprolol succinate ER (TOPROL XL) 50 mg 24 hr tablet Take 1 tablet by mouth once daily. Dr. Odom - furosemide (LASIX) 40 mg tablet Take 1.5 tablets by mouth twice daily. - potassium chloride SR (MICRO-K) 10 mEq CR capsule Take 2 capsules by mouth twice daily. - warfarin (COUMADIN) 5 mg tablet Take 1 tablet by mouth once daily. - warfarin (COUMADIN) 7.5 mg tablet Take 1 tablet by mouth once daily. - COMPOUNDED PRESCRIPTION Oxygen 2-3 L by nasal cannula. Diagnosis hypoxia, systolic heart failure. Pulse oximetry at rest: Pulse oximetry with ambulation: Pulse oximetry with oxygen and ambulation: - ACETAMINOPHEN (TYLENOL EXTRA STRENGTH ORAL) Take 1,000 mg by mouth once daily. As needed - COMPOUNDED PRESCRIPTION Home health S/P ablation for INR checks, assessment and eval of VS, HF and coumadin teaching. Eval for PT. Dx; cardiomyopathy, ID, arrhythmia, CAD, anticoagulation. - COMPOUNDED PRESCRIPTION S/P ablation for VT. Pt requires INR, assessment and eval VS, coumadin and HF teaching. Dx: Cardiomyopathy, ID, ventricular arrhythmia, CAD, anticoagulation. - magnesium oxide (MAG-OX) 400 mg tablet 1 tablet twice weekly - aspirin, enteric coated (ECOTRIN LOW STRENGTH) 81 mg EC tablet Take 1 tablet by mouth once daily. Meds Comments as of 06/04/2012: Problem List As Of Date 03/07/2021 Noted Resolved LUMBAGO [M54.50] 10/15/2005 SCIATICA [M54.30] 10/15/2005 CARPAL TUNNEL SYNDROME [G56.00] 01/09/2006 04/05/2007 LATERAL EPICONDYLITIS [M77.10] 01/09/2006 04/05/2007 JOINT PAIN-JOINT NEC [M25.59] 04/05/2007 Mixed hyperlipidemia [E78.2] 12/21/2007 History of cerebral infarction [Z86.73] 02/21/2009 Essential hypertension [I10] 02/26/2009 Impaired fasting glucose [R73.01] 02/26/2009 02/18/2021 Brain tumor (HCC) [D49.6] 02/26/2009 12/14/2020 Pain in Joint, Pelvic Region and Thigh [M25.559]06/12/2009 Coronary atherosclerosis [I25.10] Ischemic dilated cardiomyopathy (HCC) [I25.5, I* S/P coronary artery stent placement [Z95.5] 03/31/2013 GERD (gastroesophageal reflux disease) [K21.9] 04/10/2014 Presence of stent in LAD coronary artery [Z95.5]04/30/2015 ICD (implantable cardioverter-defibrillator) di*07/10/2015 Paroxysmal atrial fib (more content not included)...[facility] 03-07-2021 NoteHNO ID: [id number] Author: Beka Cunningham RN Service: ? Author Type: Registered Nurse Type: Progress Notes Filed: 03/07/2021 10:49 AM Note Text: inSight CDM Engagement Provider Action/FYI: Pt reported 02/28/21 on My Chart [employer] Questionnaire: Do you check your blood pressure at home? Yes (P) ?-patient Have your blood pressure readings been At your goal (P) ?-patient Do you have new or worse shortness of breath with activity? No (P) ?-patient Do you feel like you are dehydrated for any reason, including not being able to eat or drink normally, or having less urine/much darker urine than normal for you? No (P) ?-patient Call to Pt left a message Contact Made with Patient: No, first attempt, left message. Jesi Leos. This is Nathalie Ireland RN your [employer] from the [facility]. I am calling to check in with you concerning the MyChart questionnaire you have been receiving from me. I will call you again and am looking forward to speaking with you. ([employer] enters next day in next patient outreach) Nathalie Ireland RN March 07, 2021 10:42 [facility]01-19-2022 NoteHNO ID: [id number] Author: Beka Cunningham RN Service: ? Author Type: Registered Nurse Type: Progress Notes Filed: 02/27/2021 4:23 PM Note Text: YOLANDA CD TELEPHONIC OUTREACH Provider Action/FYI: Call to Pt to verify symptom status or needs. Contact made with patient: No - Left message Jesi my name is Nathalie Ireland RN your [employer] from the [facility] I am calling today for your bi-weekly check in. I am sorry I missed your call. I will reach out to you again tomorrow. (if the third call I will reach out to you again next week) Enter next patient outreach date for the following business day using the Track Pt Outreach. End outreach. Nathalie Ireland RN February 27, 2021 4:[address] [facility]01-19-2022 NotePatient Outreach ([facility]) EDUARD LEOS ([id number]) 1945 M Date Time Provider Department 02/27/21 BEKA FAROOQ During your visit today, we recorded the following information about you: Nathalie Ireland RN 02/27/2021 4:23 PM Signed [facility] TELEPHONIC OUTREACH Provider Action/FYI: Call to Pt to verify symptom status or needs. Contact made with patient: No - Left message Hello my name is Nathalie Ireland RN your [employer] from the [facility] I am calling today for your bi-weekly check in. I am sorry I missed your call. I will reach out to you again tomorrow. (if the third call I will reach out to you again next week) Enter next patient outreach date for the following day using the Track Pt Outreach. End outreach. Nathalie Ireland RN February 27, 2021 4:20 PM Allergies As of Date: 02/27/2021 Noted Allergy Reaction AMIODARONE 02/17/2018 14 - Other: See Comments Comments: Pulmonary fibrosis CLAMS 12/18/2020 14 - Other: See Comments GEMFIBROZIL 02/26/2009 5 - Intolerance Comments: Upset stomach; constipation NEXIUM (ESOMEPRAZOLE MAGNESIUM) 01/26/2017 8 - GI Upset Date Reviewed: 12/18/2020 Reviewed by: Lona Jeronimo Ma - Fully Assessed Reason for Visit: Community Monitoring Outreach [Other] Cmt: CD Outreach Prescriptions as of 02/27/2021 - cyclobenzaprine (FLEXERIL) 10 mg tablet Take 1 tablet by mouth three times daily as needed for muscle spasm. - atorvastatin (LIPITOR) 40 mg tablet Take 1 tablet by mouth once daily. - sacubitril-valsartan (ENTRESTO) 49-51 mg tablet Take 1 tablet by mouth twice daily. ([place]) - spironolactone (ALDACTONE) 25 mg tablet Take 1 tablet by mouth twice daily. ([place]) - metFORMIN (GLUCOPHAGE) 500 mg tablet Take 1 tablet by mouth daily with breakfast. - Lactobac no.41/Bifidobact no.7 (PROBIOTIC-10 ORAL) Take by mouth. - traZODone (DESYREL) 50 mg tablet Take 1 tablet by mouth daily at bedtime. - famotidine (PEPCID) 20 mg tablet Take 1 tablet by mouth at bedtime as needed. - pantoprazole DR (PROTONIX) 40 mg tablet Take 1 tablet by mouth twice daily. - loperamide HCl (IMODIUM A-D) 2 mg tab Take 1 tablet by mouth as needed. for 3 or more BMs per day - metoprolol succinate ER (TOPROL XL) 50 mg 24 hr tablet Take 1 tablet by mouth once daily. Dr. Odom - furosemide (LASIX) 40 mg tablet Take 1.5 tablets by mouth twice daily. - potassium chloride SR (MICRO-K) 10 mEq CR capsule Take 2 capsules by mouth twice daily. - warfarin (COUMADIN) 5 mg tablet Take 1 tablet by mouth once daily. - warfarin (COUMADIN) 7.5 mg tablet Take 1 tablet by mouth once daily. - COMPOUNDED PRESCRIPTION Oxygen 2-3 L by nasal cannula. Diagnosis hypoxia, systolic heart failure. Pulse oximetry at rest: Pulse oximetry with ambulation: Pulse oximetry with oxygen and ambulation: - ACETAMINOPHEN (TYLENOL EXTRA STRENGTH ORAL) Take 1,000 mg by mouth once daily. As needed - COMPOUNDED PRESCRIPTION [facility] S/P ablation for INR checks, assessment and eval of VS, HF and coumadin teaching. Eval for PT. Dx; cardiomyopathy, ID, arrhythmia, CAD, anticoagulation. - COMPOUNDED PRESCRIPTION S/P ablation for VT. Pt requires INR, assessment and eval VS, coumadin and HF teaching. Dx: Cardiomyopathy, ID, ventricular arrhythmia, CAD, anticoagulation. - magnesium oxide (MAG-OX) 400 mg tablet 1 tablet twice weekly - aspirin, enteric coated (ECOTRIN LOW STRENGTH) 81 mg EC tablet Take 1 tablet by mouth once daily. Meds Comments as of 06/04/2012: Problem List As Of Date 02/27/2021 Noted Resolved LUMBAGO [M54.50] 10/15/2005 SCIATICA [M54.30] 10/15/2005 CARPAL TUNNEL SYNDROME [G56.00] 01/09/2006 04/05/2007 LATERAL EPICONDYLITIS [M77.10] 01/09/2006 04/05/2007 JOINT PAIN-JOINT NEC [M25.59] 04/05/2007 Mixed hyperlipidemia [E78.2] 12/21/2007 History of cerebral infarction [Z86.73] 02/21/2009 Essential hypertension [I10] 02/26/2009 Impaired fasting glucose [R73.01] 02/26/2009 02/18/2021 Brain tumor (HCC) [D49.6] 02/26/2009 12/14/2020 Pain in Joint, Pelvic Region and Thigh [M25.559]06/12/2009 Coronary atherosclerosis [I25.10] Ischemic dilated cardiomyopathy (HCC) [I25.5, I* S/P coronary artery stent placement [Z95.5] 03/31/2013 GERD (gastroesophageal reflux disease) [K21.9] 04/10/2014 Presence of stent in LAD coronary artery [Z95.5]04/30/2015 ICD (implantable cardioverter-defibrillator) di*07/10/2015 Paroxysmal atrial fibrillation (HCC) [I48.0] 07/10/2015 VT (ventricular tachycardia) (HCC) [I47.2] 07/24/2015 12/14/2020 Renal insufficiency [N28.9] 07/24/2015 Chronic anticoagulation [Z79.01] 10/23/2015 Encounter for monitoring anti-arrhythmic therap*10/23/2015 12/14/2020 Dyspepsia [R10.13] 01/27/2017 12/14/2020 Nausea [R11.0] 01/27/2017 12/14/2020 Epigastric abdominal pain [R10.13] 01/27/2017 Unilateral inguinal h (more content not included)...[facility] 2021 NoteHNO ID: [id number] Author: Beka Cunningham RN Service: ? Author Type: Registered Nurse Type: Progress Notes Filed: 2021 2:37 PM Note Text: inSight CDM Engagement Provider Action/FYI: Call to Pt left vm to verify any new or worsening symptoms or concerns. Contact Made with Patient: No, second attempt, left message. Jesi Leos. This is Nathalie Ireland RN your [employer] from the [facility]. I am calling to check in with you concerning the MyChart questionnaire you have been receiving from me. I will call you again next week and am looking forward to speaking with you. ([employer] enters next week's date in next patient outreach) Nathalie Ireland RN 2021 2:[address] [facility]01-10-2022 NoteHNO ID: [id number] Author: Beka Cunningham RN Service: ? Author Type: Registered Nurse Type: Progress Notes Filed: 2021 2:37 PM Note Text: inSight CDM Engagement Provider Action/FYI: Call to Pt left vm to verify any new or worsening symptoms or concerns. Contact Made with Patient: No, first attempt, left message. Jesi Leos. This is Nathalie Ireland RN your [employer] from the [facility]. I am calling to check in with you concerning the MyChart questionnaire you have been receiving from me. I will call you again tomorrow and am looking forward to speaking with you. ([employer] enters next day in next patient outreach) Nathalie Ireland RN February 18, 2021 4:[address] [facility]01-10-2022 NotePatient Outreach ([facility]) EDUARD LEOS ([id number]) 1945 M Date Time Provider Department 02/18/21 BEKA FAROOQ During your visit today, we recorded the following information about you: Nathalie Ireland RN 2021 2:37 PM Signed inSight CDM Engagement Provider Action/FYI: Call to Pt left vm to verify any new or worsening symptoms or concerns. Contact Made with Patient: No, first attempt, left message. Jesi Leos. This is Nathalie Ireland RN your [employer] from the [facility]. I am calling to check in with you concerning the MyChart questionnaire you have been receiving from me. I will call you again tomorrow and am looking forward to speaking with you. ([employer] enters next day in next patient outreach) Nathalie Ireland RN February 18, 2021 4:25 PM Nathalie Ireland RN 2021 2:37 PM Signed inSight CDM Engagement Provider Action/FYI: Call to Pt left vm to verify any new or worsening symptoms or concerns. Contact Made with Patient: No, second attempt, left message. Jesi Leos. This is Nathalie Ireland RN your [employer] from the [facility]. I am calling to check in with you concerning the MyChart questionnaire you have been receiving from me. I will call you again next week and am looking forward to speaking with you. ([employer] enters next week's date in next patient outreach) Nathalie Ireland RN 2021 2:35 PM Allergies As of Date: 02/18/2021 Noted Allergy Reaction AMIODARONE 02/17/2018 14 - Other: See Comments Comments: Pulmonary fibrosis CLAMS 12/18/2020 14 - Other: See Comments GEMFIBROZIL 02/26/2009 5 - Intolerance Comments: Upset stomach; constipation NEXIUM (ESOMEPRAZOLE MAGNESIUM) 01/26/2017 8 - GI Upset Date Reviewed: 12/18/2020 Reviewed by: Lona Jeronimo Ma - Fully Assessed Reason for Visit: Community Monitoring Outreach [Other] Cmt: CDM Outreach Prescriptions as of 2021 - cyclobenzaprine (FLEXERIL) 10 mg tablet Take 1 tablet by mouth three times daily as needed for muscle spasm. - atorvastatin (LIPITOR) 40 mg tablet Take 1 tablet by mouth once daily. - sacubitril-valsartan (ENTRESTO) 49-51 mg tablet Take 1 tablet by mouth twice daily. ([place]) - spironolactone (ALDACTONE) 25 mg tablet Take 1 tablet by mouth twice daily. ([place]) - metFORMIN (GLUCOPHAGE) 500 mg tablet Take 1 tablet by mouth daily with breakfast. - Lactobac no.41/Bifidobact no.7 (PROBIOTIC-10 ORAL) Take by mouth. - traZODone (DESYREL) 50 mg tablet Take 1 tablet by mouth daily at bedtime. - famotidine (PEPCID) 20 mg tablet Take 1 tablet by mouth at bedtime as needed. - pantoprazole DR (PROTONIX) 40 mg tablet Take 1 tablet by mouth twice daily. - loperamide HCl (IMODIUM A-D) 2 mg tab Take 1 tablet by mouth as needed. for 3 or more BMs per day - metoprolol succinate ER (TOPROL XL) 50 mg 24 hr tablet Take 1 tablet by mouth once daily. Dr. Odom - furosemide (LASIX) 40 mg tablet Take 1.5 tablets by mouth twice daily. - potassium chloride SR (MICRO-K) 10 mEq CR capsule Take 2 capsules by mouth twice daily. - warfarin (COUMADIN) 5 mg tablet Take 1 tablet by mouth once daily. - warfarin (COUMADIN) 7.5 mg tablet Take 1 tablet by mouth once daily. - COMPOUNDED PRESCRIPTION Oxygen 2-3 L by nasal cannula. Diagnosis hypoxia, systolic heart failure. Pulse oximetry at rest: Pulse oximetry with ambulation: Pulse oximetry with oxygen and ambulation: - ACETAMINOPHEN (TYLENOL EXTRA STRENGTH ORAL) Take 1,000 mg by mouth once daily. As needed - COMPOUNDED PRESCRIPTION [facility] S/P ablation for INR checks, assessment and eval of VS, HF and coumadin teaching. Eval for PT. Dx; cardiomyopathy, ID, arrhythmia, CAD, anticoagulation. - COMPOUNDED PRESCRIPTION S/P ablation for VT. Pt requires INR, assessment and eval VS, coumadin and HF teaching. Dx: Cardiomyopathy, ID, ventricular arrhythmia, CAD, anticoagulation. - magnesium oxide (MAG-OX) 400 mg tablet 1 tablet twice weekly - aspirin, enteric coated (ECOTRIN LOW STRENGTH) 81 mg EC tablet Take 1 tablet by mouth once daily. Meds Comments as of 06/04/2012: Problem List As Of Date 02/18/2021 Noted Resolved LUMBAGO [M54.50] 10/15/2005 SCIATICA [M54.30] 10/15/2005 CARPAL TUNNEL SYNDROME [G56.00] 01/09/2006 04/05/2007 LATERAL EPICONDYLITIS [M77.10] 01/09/2006 04/05/2007 JOINT PAIN-JOINT NEC [M25.59] 04/05/2007 Mixed hyperlipidemia [E78.2] 12/21/2007 History of cerebral infarction [Z86.73] 02/21/2009 Essential hypertension [I10] 02/26/2009 Impaired fasting glucose [R73.01] 02/26/2009 02/18/2021 Brain tumor (HCC) [D49.6] 02/26/2009 12/14/2020 Pain in Joint, Pelvic Region and Thigh [M25.559]06/12/2009 Coronary atherosclerosis [I25.10] Ischemic dilated cardiomyopathy (HCC) [I25.5, I* S/P coronary art (more content not included)...[facility] 12-18-2020 NoteHNO ID: [id number] Author: Nidia Geiger MD Service: ? Author Type: Physician Type: Progress Notes Filed: 02/18/2021 12:30 AM Note Text: This note was created using [email or web address]. Subjective Eduard Leos is a 75 year old male. Patient presents with: F/U 6 months SUBJECTIVE: Eduard Leos is a 75 year old year old gentleman here today for 6 month follow up appointment for review of medical conditions. Cyst on right temporal area. Sent to ENT. They wee able to express drainage. He was able to express a couple times a day. Will follow up with ENT as needed. Back pain issues again. Flexeril does help with taking at bedtime so can help sleep. Able to go back to sleep after having nocturia. Has to sit back down after a minute or so. Diclofenac gel was given--not sure if helping. Was not able to apply and not able to help. Pulse ox stays in 90s. Does not drop with activity. HR goes up. Uses walker with seat so can sit as needed. Noted HgA1C up from last time. No more pop than usual. Activity less though. PAST MEDICAL HISTORY Diagnosis Date - Abdominal pain, right upper quadrant 12/03/2018 - Anemia, unspecified 12/03/2018 - Brain Tumor 02/26/2009 benign per evaluation at [facility] - Coronary atherosclerosis of unspecified type of vessel, [place] or graft coumadin managed by cardiology (Dr. Johnston) - CVA (Cerebral Infarction) 02/21/2009 - HYPERLIPIDEMIA NEC/NOS 12/21/2007 - Impaired Fasting Glucose 02/26/2009 - Ischemic dilated cardiomyopathy (HCC) LV EF 30% (most recent echo 06/08/2012) - JOINT PAIN-JOINT NEC 04/05/2007 - LUMBAGO 10/15/2005 - Nausea - Obese - Renal insufficiency, mild - SCIATICA 10/15/2005 - Skin cancer 1988 Non-melanoma. - Unspecified Essential Hypertension 02/26/2009 Current Outpatient Medications Medication Sig - cyclobenzaprine (FLEXERIL) 10 mg tablet Take 0.5-1 tablets by mouth twice daily as needed for muscle spasm. - Lactobac no.41/Bifidobact no.7 (PROBIOTIC-10 ORAL) Take by mouth. - traZODone (DESYREL) 50 mg tablet Take 1 tablet by mouth daily at bedtime. - famotidine (PEPCID) 20 mg tablet Take 1 tablet by mouth at bedtime as needed. - pantoprazole DR (PROTONIX) 40 mg tablet Take 1 tablet by mouth twice daily. - loperamide HCl (IMODIUM A-D) 2 mg tab Take 1 tablet by mouth as needed. for 3 or more BMs per day - metoprolol succinate ER (TOPROL XL) 50 mg 24 hr tablet Take 1 tablet by mouth once daily. Dr. Odom - furosemide (LASIX) 40 mg tablet Take 1.5 tablets by mouth twice daily. - potassium chloride SR (MICRO-K) 10 mEq CR capsule Take 2 capsules by mouth twice daily. - spironolactone (ALDACTONE) 25 mg tablet Take 1 tablet by mouth twice daily. - atorvastatin (LIPITOR) 40 mg tablet Take 1 tablet by mouth once daily. - warfarin (COUMADIN) 7.5 mg tablet Take 1 tablet by mouth once daily. - sacubitril-valsartan (ENTRESTO) 49-51 mg tablet Take 1 tablet by mouth twice daily. - ACETAMINOPHEN (TYLENOL EXTRA STRENGTH ORAL) Take 1,000 mg by mouth once daily. As needed - magnesium oxide (MAG-OX) 400 mg tablet 1 tablet twice weekly (Patient taking differently: 1 tablet three times weekly ) - aspirin, enteric coated (ECOTRIN LOW STRENGTH) 81 mg EC tablet Take 1 tablet by mouth once daily. - ondansetron (ZOFRAN) 4 mg tablet Take 1 tablet by mouth once daily as needed. for nausea (Patient not taking: Reported on 10/26/2020 ) - warfarin (COUMADIN) 5 mg tablet Take 1 tablet by mouth once daily. (Patient taking differently: Take 5 mg by mouth once daily. 7.5 mg Thursday and Thursday, 5 mg all other days ) - COMPOUNDED PRESCRIPTION Oxygen 2-3 L by nasal cannula. Diagnosis hypoxia, systolic heart failure. Pulse oximetry at rest: Pulse oximetry with ambulation: Pulse oximetry with oxygen and ambulation: (Patient taking differently: Oxygen 2-3 L by nasal cannula. Diagnosis hypoxia, systolic heart failure. Pulse oximetry at rest: Pulse oximetry with ambulation: Pulse oximetry with oxygen and ambulation: Pt reported mostly using PM ) - COMPOUNDED PRESCRIPTION Home health S/P ablation for INR checks, assessment and eval of VS, HF and coumadin teaching. Eval for PT. Dx; cardiomyopathy, ID, arrhythmia, CAD, anticoagulation. - COMPOUNDED PRESCRIPTION S/P ablation for VT. Pt requires INR, assessment and eval VS, coumadin and HF teaching. Dx: Cardiomyopathy, ID, ventricular arrhythmia, CAD, anticoagulation. No current facility-administered medications for this visit. Review of Systems Objective BP 100/62 Pulse 84 Resp 18 Wt 104.3 kg (230 lb) BMI 33.97 kg/m? Physical Exam Vitals reviewed. Constitutional: Appearance: Normal appearance. Eyes: Conjunctiva/sclera: Conjunctivae normal. Cardiovascular: Rate and Rhythm: Normal rate and regular rhythm. Heart sounds: Normal heart sounds. Pulmonary: Effort: Pulmonary effort is normal. Breath sounds: Normal breath sounds. Musculosk (more content not included)...[facility]09-17-2021 NoteHNO ID: [id number] Author: Irma López APRN.NEYDA Service: ? Author Type: Nurse Practitioner Type: Progress Notes Filed: 10/26/2020 2:23 PM Note Text: This is a 75 year old male who presents today with: Patient presents with: Follow Up: [facility] HISTORY OF PRESENT ILLNESS: Eduard Leos is a 75 year old male. Patient presents with: Follow Up: [facility] Here in the office for hospital follow up. HOSPITAL/ER FOLLOW UP: Reason for visit: Lumbar back pain Which facility: [facility] Date of visit: 10/07/2020 Diagnosis: Lumbar strain. Testing done: xray: unremarkable- age related changes. Treatment given: Toradol with a prescription for Norflex and oxycodone for at home. Current symptoms: Still having ongoing low mid back pain that radiates down the right leg. Unable to take NSAIDS due to blood thinner. Has been taking tylenol 500 mg BID and flexeril at bedtime. Flexeril has been helping with sleep. Pain feels like a cramp and will get sharp with certain movements. Refers he just finished PT for the same issues. Has been continuing exercises at home. Broke back when younger and has had chronic back pain since. Does not want to see spinal specialist due to not wanting any other surgeries. No saddle anesthesia or loss of bowel/bladder. PAST MEDICAL HISTORY: PAST MEDICAL HISTORY Diagnosis Date - Abdominal pain, right upper quadrant 12/03/2018 - Anemia, unspecified 12/03/2018 - Brain Tumor 02/26/2009 benign per evaluation at [facility] - Coronary atherosclerosis of unspecified type of vessel, [place] or graft coumadin managed by cardiology (Dr. Johnston) - CVA (Cerebral Infarction) 02/21/2009 - HYPERLIPIDEMIA NEC/NOS 12/21/2007 - Impaired Fasting Glucose 02/26/2009 - Ischemic dilated cardiomyopathy (HCC) LV EF 30% (most recent echo 06/08/2012) - JOINT PAIN-JOINT NEC 04/05/2007 - LUMBAGO 10/15/2005 - Nausea - Obese - Renal insufficiency, mild - SCIATICA 10/15/2005 - Skin cancer 1988 Non-melanoma. - Unspecified Essential Hypertension 02/26/2009 PAST SURGICAL HISTORY Procedure Laterality Date - CARDIOVERSION 01/07/2016 Dr. Dennison - COLONOSCOP W/ OR W/O [facility] SPEC 12/06/2018 Colonoscopy - EGD W/O OR W/BRUSH/WASH 02/11/2017 EGD - EGD W/O OR W/BRUSH/WASH 12/06/2018 EGD - LAPAROSCOPIC CHOLEYCYSTECTOMY Cholecystectomy, lap - PACEMAKER 2012 - PAST SURGICAL HISTORY OF biopsy on outer neck 40 yr ago - PAST SURGICAL HISTORY OF cast applied for compression fracture back - REMOVAL ADENOIDS,PRIMARY,<12 Y/O Adenoidectomy - REMOVAL OF TONSILS,<12 Y/O Tonsillectomy - RIGHT HEART CATHETERIZATION Cardiac cath, R heart - STENT PLACEMENT 2013 - [place] ABLATION 01/09/2016 Dr. Dennison - [place] ABLATION 06/02/2016 Dr. Dennison ALLERGIES Amiodarone, Gemfibrozil, and Nexium [Esomeprazole Magnesium] MEDICATIONS Current Outpatient Medications Medication Sig - traZODone (DESYREL) 50 mg tablet Take 1 tablet by mouth daily at bedtime. - famotidine (PEPCID) 20 mg tablet Take 1 tablet by mouth at bedtime as needed. - pantoprazole DR (PROTONIX) 40 mg tablet Take 1 tablet by mouth twice daily. - loperamide HCl (IMODIUM A-D) 2 mg tab Take 1 tablet by mouth as needed. for 3 or more BMs per day - ondansetron (ZOFRAN) 4 mg tablet Take 1 tablet by mouth once daily as needed. for nausea - metoprolol succinate ER (TOPROL XL) 50 mg 24 hr tablet Take 1 tablet by mouth once daily. Dr. Odom - furosemide (LASIX) 40 mg tablet Take 1.5 tablets by mouth twice daily. - potassium chloride SR (MICRO-K) 10 mEq CR capsule Take 2 capsules by mouth twice daily. - cyclobenzaprine (FLEXERIL) 10 mg tablet Take 0.5-1 tablets by mouth twice daily as needed for Muscle Spasm. (Patient not taking: Reported on 06/06/2020 ) - Alpha Lipoic Acid 600 mg cap Take 1 capsule by mouth once daily. - spironolactone (ALDACTONE) 25 mg tablet Take 1 tablet by mouth twice daily. - atorvastatin (LIPITOR) 40 mg tablet Take 1 tablet by mouth once daily. - warfarin (COUMADIN) 5 mg tablet Take 1 tablet by mouth once daily. (Patient taking differently: Take 5 mg by mouth once daily. 7.5 mg Thursday and Thursday, 5 mg all other days ) - warfarin (COUMADIN) 7.5 mg tablet Take 1 tablet by mouth once daily. - sacubitril-valsartan (ENTRESTO) 49-51 mg tablet Take 1 tablet by mouth twice daily. - COMPOUNDED PRESCRIPTION Oxygen 2-3 L by nasal cannula. Diagnosis hypoxia, systolic heart failure. Pulse oximetry at rest: Pulse oximetry with ambulation: Pulse oximetry with oxygen and ambulation: (Patient taking differently: Oxygen 2-3 L by nasal cannula. Diagnosis hypoxia, systolic heart failure. Pulse oximetry at rest: Pulse oximetry with ambulation: Pulse oximetry with oxygen and ambulation: Pt reported mostly using PM ) - ACETAMINOPHEN (TYLENOL EXTRA STRENGTH ORAL) Take 1,000 mg by mouth once daily. As needed - COMPOUNDED PRESCRIPTION Home health S/P ablation for INR checks, assessmen (more content not included)...[facility]09-09-2021 NotePatient Outreach ([facility]) EDUARD LEOS ([id number]) 1945 M Date Time Provider Department 10/18/20 BEKA CUNNINGHAM AMBERIN During your visit today, we recorded the following information about you: Nathalie Ireland RN 10/18/2020 12:53 PM Signed INSIGHT CDM ESCALATION Provider Action/FYI: [employer] Questionnaire Triggered call Spk with Pt who denies CP, has Chronic Sob with exertion, Pulse Ox 94-96% Pt reports he pulled a muscle in his back and when he takes a deep breath the pain in his back causes him to get winded, feels it is muscular not respiratory related. Pt declined need to speak with a Virtual Provider today, Pt reports has an 10/26/20 Appt with Irma López APRN.CNP for 10/07/20W ED follow up Pt denies needs and concerns Message received via: InSight - Yes contact made with patient ACTION TAKEN: Based on assessment specialist, the following disposition is advised: SYMPTOMS PRESENT NOT SEVERE: No action required - Continue outreach / Phone Call Nathalie Ireland RN October 18, 2020 11:38 AM Allergies As of Date: 10/18/2020 Noted Allergy Reaction AMIODARONE 02/17/2018 14 - Other: See Comments Comments: Pulmonary fibrosis GEMFIBROZIL 02/26/2009 5 - Intolerance Comments: Upset stomach; constipation NEXIUM (ESOMEPRAZOLE MAGNESIUM) 01/26/2017 8 - GI Upset Date Reviewed: 10/02/2020 Reviewed by: Sonu Jimenez APRN.AMMONIA NITRATE OPERATOR - Fully Assessed Reason for Visit: Insight Escalation [Other] Cmt: [employer] Questionnaire Triggered call Prescriptions as of 10/18/2020 - traZODone (DESYREL) 50 mg tablet Take 1 tablet by mouth daily at bedtime. - famotidine (PEPCID) 20 mg tablet Take 1 tablet by mouth at bedtime as needed. - pantoprazole DR (PROTONIX) 40 mg tablet Take 1 tablet by mouth twice daily. - loperamide HCl (IMODIUM A-D) 2 mg tab Take 1 tablet by mouth as needed. for 3 or more BMs per day - ondansetron (ZOFRAN) 4 mg tablet Take 1 tablet by mouth once daily as needed. for nausea - metoprolol succinate ER (TOPROL XL) 50 mg 24 hr tablet Take 1 tablet by mouth once daily. Dr. Odom - furosemide (LASIX) 40 mg tablet Take 1.5 tablets by mouth twice daily. - potassium chloride SR (MICRO-K) 10 mEq CR capsule Take 2 capsules by mouth twice daily. - cyclobenzaprine (FLEXERIL) 10 mg tablet Take 0.5-1 tablets by mouth twice daily as needed for Muscle Spasm. - Alpha Lipoic Acid 600 mg cap Take 1 capsule by mouth once daily. - spironolactone (ALDACTONE) 25 mg tablet Take 1 tablet by mouth twice daily. - atorvastatin (LIPITOR) 40 mg tablet Take 1 tablet by mouth once daily. - warfarin (COUMADIN) 5 mg tablet Take 1 tablet by mouth once daily. - warfarin (COUMADIN) 7.5 mg tablet Take 1 tablet by mouth once daily. - sacubitril-valsartan (ENTRESTO) 49-51 mg tablet Take 1 tablet by mouth twice daily. - COMPOUNDED PRESCRIPTION Oxygen 2-3 L by nasal cannula. Diagnosis hypoxia, systolic heart failure. Pulse oximetry at rest: Pulse oximetry with ambulation: Pulse oximetry with oxygen and ambulation: - ACETAMINOPHEN (TYLENOL EXTRA STRENGTH ORAL) Take 1,000 mg by mouth once daily. As needed - COMPOUNDED PRESCRIPTION Home health S/P ablation for INR checks, assessment and eval of VS, HF and coumadin teaching. Eval for PT. Dx; cardiomyopathy, ID, arrhythmia, CAD, anticoagulation. - COMPOUNDED PRESCRIPTION HH S/P ablation for VT. Pt requires INR, assessment and eval VS, coumadin and HF teaching. Dx: Cardiomyopathy, ID, ventricular arrhythmia, CAD, anticoagulation. - magnesium oxide (MAG-OX) 400 mg tablet 1 tablet twice weekly - aspirin, enteric coated (ECOTRIN LOW STRENGTH) 81 mg EC tablet Take 1 tablet by mouth once daily. Meds Comments as of 06/04/2012: Problem List As Of Date 10/18/2020 Noted Resolved LUMBAGO [M54.5] 10/15/2005 SCIATICA [M54.30] 10/15/2005 CARPAL TUNNEL SYNDROME [G56.00] 01/09/2006 04/05/2007 LATERAL EPICONDYLITIS [M77.10] 01/09/2006 04/05/2007 JOINT PAIN-JOINT NEC [M25.59] 04/05/2007 Mixed hyperlipidemia [E78.2] 12/21/2007 Cerebral infarction (HCC) [I63.9] 02/21/2009 Essential hypertension [I10] 02/26/2009 Impaired Fasting Glucose [R73.01] 02/26/2009 Brain Tumor [D49.6] 02/26/2009 Pain in Joint, Pelvic Region and Thigh [M25.559]06/12/2009 Coronary atherosclerosis [I25.10] Ischemic dilated cardiomyopathy [I25.5, I42.0] S/P coronary artery stent placement [Z95.5] 03/31/2013 GERD (gastroesophageal reflux disease) [K21.9] 04/10/2014 Presence of stent in LAD coronary artery [Z95.5]04/30/2015 ICD (implantable cardioverter-defibrillator) di*07/10/2015 Paroxysmal atrial fibrillation (HCC) [I48.0] 07/10/2015 VT (ventricular tachycardia) (HCC) [I47.2] 07/24/2015 Renal insufficiency [N28.9] 07/24/2015 Chronic anticoagulation [Z79.01] 10/23/2015 Encounter for monitoring anti-arrhythmic therap*10/23/2015 Dyspepsia [R10.13] 01/09 (more content not included)...[facility] 10-18-2020 NoteHNO ID: [id number] Author: Beka Cunningham RN Service: ? Author Type: Registered Nurse Type: Progress Notes Filed: 10/18/2020 12:53 PM Note Text: INSIGHT CDM ESCALATION Provider Action/FYI: [employer] Questionnaire Triggered call Spk with Pt who denies CP, has Chronic Sob with exertion, Pulse Ox 94-96% Pt reports he pulled a muscle in his back and when he takes a deep breath the pain in his back causes him to get winded, feels it is muscular not respiratory related. Pt declined need to speak with a Virtual Provider today, Pt reports has an 10/26/20 Appt with Irma López APRN.AMMONIA NITRATE OPERATOR for 10/07/20[facility] ED follow up Pt denies needs and concerns Message received via: InSight - Yes contact made with patient ACTION TAKEN: Based on assessment specialist, the following disposition is advised: SYMPTOMS PRESENT NOT SEVERE: No action required - Continue outreach / Phone Call Nathalie Ireland RN October 18, 2020 11:38 [facility]09-02-2021 NoteHNO ID: [id number] Author: Beka Cunningham RN Service: ? Author Type: Registered Nurse Type: Progress Notes Filed: 10/11/2020 4:23 PM Note Text: InSight CDM Enrollment Provider Action/FYI: Auto Enrolled via [place] for CDM Program Patient referred by: [facility] Ian Contact made with patient: Patient not outreached at this time. Closing: Patient accepts child adolescent care Thank you for your time today. I am excited to work together in managing your health! You will receive information on next steps through your [employer] account, and I will check back within a few weeks to ensure you have all that you need to use the program successfully. (Place name in care team and assign [employer] questionnaire) END OUTREACH Nathalie Ireland RN October 11, 2020 4:[address] [facility]09-02-2021 NotePatient Outreach ([facility]) CHARISSAEDUARD SHIN ([id number]) 1945 Date Time Provider Department 10/11/20 BEKA FAROOQ During your visit today, we recorded the following information about you: Nathalie Ireland RN 10/11/2020 4:23 PM Signed InSight CDM Enrollment Provider Action/FYI: Auto Enrolled via [place] for CDM Program Patient referred by: [facility] Ian Contact made with patient: Patient not outreached at this time. Closing: Patient accepts child adolescent care Thank you for your time today. I am excited to work together in managing your health! You will receive information on next steps through your [employer] account, and I will check back within a few weeks to ensure you have all that you need to use the program successfully. (Place name in care team and assign [employer] questionnaire) END OUTREACH Nathalie Ireland RN October 11, 2020 4:02 PM Allergies As of Date: 10/11/2020 Noted Allergy Reaction AMIODARONE 02/17/2018 14 - Other: See Comments Comments: Pulmonary fibrosis GEMFIBROZIL 02/26/2009 5 - Intolerance Comments: Upset stomach; constipation NEXIUM (ESOMEPRAZOLE MAGNESIUM) 01/26/2017 8 - GI Upset Date Reviewed: 10/02/2020 Reviewed by: Sonu Jimenez APRN.AMMONIA NITRATE OPERATOR - Fully Assessed Reason for Visit: Community Monitoring Outreach [Other] Cmt: Auto Enrolled / CDM Prescriptions as of 10/11/2020 - mupirocin (BACTROBAN) 2 % ointment Apply 1 application to affected area twice daily for 10 days. or until healed - traZODone (DESYREL) 50 mg tablet Take 1 tablet by mouth daily at bedtime. - famotidine (PEPCID) 20 mg tablet Take 1 tablet by mouth at bedtime as needed. - pantoprazole DR (PROTONIX) 40 mg tablet Take 1 tablet by mouth twice daily. - loperamide HCl (IMODIUM A-D) 2 mg tab Take 1 tablet by mouth as needed. for 3 or more BMs per day - ondansetron (ZOFRAN) 4 mg tablet Take 1 tablet by mouth once daily as needed. for nausea - metoprolol succinate ER (TOPROL XL) 50 mg 24 hr tablet Take 1 tablet by mouth once daily. Dr. Odom - furosemide (LASIX) 40 mg tablet Take 1.5 tablets by mouth twice daily. - potassium chloride SR (MICRO-K) 10 mEq CR capsule Take 2 capsules by mouth twice daily. - cyclobenzaprine (FLEXERIL) 10 mg tablet Take 0.5-1 tablets by mouth twice daily as needed for Muscle Spasm. - Alpha Lipoic Acid 600 mg cap Take 1 capsule by mouth once daily. - spironolactone (ALDACTONE) 25 mg tablet Take 1 tablet by mouth twice daily. - atorvastatin (LIPITOR) 40 mg tablet Take 1 tablet by mouth once daily. - warfarin (COUMADIN) 5 mg tablet Take 1 tablet by mouth once daily. - warfarin (COUMADIN) 7.5 mg tablet Take 1 tablet by mouth once daily. - sacubitril-valsartan (ENTRESTO) 49-51 mg tablet Take 1 tablet by mouth twice daily. - COMPOUNDED PRESCRIPTION Oxygen 2-3 L by nasal cannula. Diagnosis hypoxia, systolic heart failure. Pulse oximetry at rest: Pulse oximetry with ambulation: Pulse oximetry with oxygen and ambulation: - ACETAMINOPHEN (TYLENOL EXTRA STRENGTH ORAL) Take 1,000 mg by mouth once daily. As needed - COMPOUNDED PRESCRIPTION [place] [facility] S/P ablation for INR checks, assessment and eval of VS, HF and coumadin teaching. Eval for PT. Dx; cardiomyopathy, ID, arrhythmia, CAD, anticoagulation. - COMPOUNDED PRESCRIPTION S/P ablation for VT. Pt requires INR, assessment and eval VS, coumadin and HF teaching. Dx: Cardiomyopathy, ID, ventricular arrhythmia, CAD, anticoagulation. - magnesium oxide (MAG-OX) 400 mg tablet 1 tablet twice weekly - aspirin, enteric coated (ECOTRIN LOW STRENGTH) 81 mg EC tablet Take 1 tablet by mouth once daily. Meds Comments as of 06/04/2012: Problem List As Of Date 10/11/2020 Noted Resolved LUMBAGO [M54.5] 10/15/2005 SCIATICA [M54.30] 10/15/2005 CARPAL TUNNEL SYNDROME [G56.00] 01/09/2006 04/05/2007 LATERAL EPICONDYLITIS [M77.10] 01/09/2006 04/05/2007 JOINT PAIN-JOINT NEC [M25.59] 04/05/2007 Mixed hyperlipidemia [E78.2] 12/21/2007 Cerebral infarction (HCC) [I63.9] 02/21/2009 Essential hypertension [I10] 02/26/2009 Impaired Fasting Glucose [R73.01] 02/26/2009 Brain Tumor [D49.6] 02/26/2009 Pain in Joint, Pelvic Region and Thigh [M25.559]06/12/2009 Coronary atherosclerosis [I25.10] Ischemic dilated cardiomyopathy [I25.5, I42.0] S/P coronary artery stent placement [Z95.5] 03/31/2013 GERD (gastroesophageal reflux disease) [K21.9] 04/10/2014 Presence of stent in LAD coronary artery [Z95.5]04/30/2015 ICD (implantable cardioverter-defibrillator) di*07/10/2015 Paroxysmal atrial fibrillation (HCC) [I48.0] 07/10/2015 VT (ventricular tachycardia) (HCC) [I47.2] 07/24/2015 Renal insufficiency [N28.9] 07/24/2015 Chronic anticoagulation [Z79.01] 10/23/2015 Encounter for monitoring anti-arrhythmic therap*10/23/2015 Dyspepsia [R10.13] 01/27/2017 Nausea [R11.0] 01/27/2017 Epigastr (more content not included)...[facility]08-24-2021 Note HNO ID: [id number] Author: Sonu Jimenez APRN.AMMONIA NITRATE OPERATOR Service: ? Author Type: Nurse Practitioner Type: Progress Notes Filed: 10/02/2020 2:27 PM Note Text: Subjective HPI Nontoxic-appearing male presents urgent care chief complaint sore in the right side of face. Patient states he has had a lump on the side of states for 2 years. Was told this is a fat deposit. States 4 days ago the cyst became more painful. Red and swollen today. Has not noticed any drainage. No trismus. Presents today to see if this needs to be drained or placed on antibiotics. .Patient presents with: sore on right side of face: has had x 2 years but 4 days ago started getting sore and larger PAST MEDICAL HISTORY Diagnosis Date - Abdominal pain, right upper quadrant 12/03/2018 - Anemia, unspecified 12/03/2018 - Brain Tumor 02/26/2009 benign per evaluation at main campus [facility] - Coronary atherosclerosis of unspecified type of vessel, [place] or graft coumadin managed by cardiology (Dr. Johnston) - CVA (Cerebral Infarction) 02/21/2009 - HYPERLIPIDEMIA NEC/NOS 12/21/2007 - Impaired Fasting Glucose 02/26/2009 - Ischemic dilated cardiomyopathy (HCC) LV EF 30% (most recent echo 06/08/2012) - JOINT PAIN-JOINT NEC 04/05/2007 - LUMBAGO 10/15/2005 - Nausea - Obese - Renal insufficiency, mild - SCIATICA 10/15/2005 - Skin cancer 1988 Non-melanoma. - Unspecified Essential Hypertension 02/26/2009 PAST SURGICAL HISTORY Procedure Laterality Date - CARDIOVERSION 01/07/2016 Dr. Dennison - COLONOSCOP W/ OR W/O BRSH SPEC 12/06/2018 Colonoscopy - EGD W/O OR W/BRUSH/WASH 02/11/2017 EGD - EGD W/O OR W/BRUSH/WASH 12/06/2018 EGD - LAPAROSCOPIC CHOLEYCYSTECTOMY Cholecystectomy, lap - PACEMAKER 2012 - PAST SURGICAL HISTORY OF biopsy on outer neck 40 yr ago - PAST SURGICAL HISTORY OF cast applied for compression fracture back - REMOVAL ADENOIDS,PRIMARY,<12 Y/O Adenoidectomy - REMOVAL OF TONSILS,<12 Y/O Tonsillectomy - RIGHT HEART CATHETERIZATION Cardiac cath, R heart - STENT PLACEMENT 2013 - VT ABLATION 01/09/2016 Dr. Dennison - VT ABLATION 06/02/2016 Dr. Dennison ALLERGIES Amiodarone, Gemfibrozil, and Nexium [Esomeprazole Magnesium] MEDICATIONS mupirocin (BACTROBAN) 2 % ointment Apply 1 application to affected area twice daily for 10 days. or until healed traZODone (DESYREL) 50 mg tablet Take 1 tablet by mouth daily at bedtime. famotidine (PEPCID) 20 mg tablet Take 1 tablet by mouth at bedtime as needed. pantoprazole DR (PROTONIX) 40 mg tablet Take 1 tablet by mouth twice daily. loperamide HCl (IMODIUM A-D) 2 mg tab Take 1 tablet by mouth as needed. for 3 or more BMs per day ondansetron (ZOFRAN) 4 mg tablet Take 1 tablet by mouth once daily as needed. for nausea metoprolol succinate ER (TOPROL XL) 50 mg 24 hr tablet Take 1 tablet by mouth once daily. Dr. Odom furosemide (LASIX) 40 mg tablet Take 1.5 tablets by mouth twice daily. potassium chloride SR (MICRO-K) 10 mEq CR capsule Take 2 capsules by mouth twice daily. Alpha Lipoic Acid 600 mg cap Take 1 capsule by mouth once daily. spironolactone (ALDACTONE) 25 mg tablet Take 1 tablet by mouth twice daily. atorvastatin (LIPITOR) 40 mg tablet Take 1 tablet by mouth once daily. warfarin (COUMADIN) 7.5 mg tablet Take 1 tablet by mouth once daily. sacubitril-valsartan (ENTRESTO) 49-51 mg tablet Take 1 tablet by mouth twice daily. COMPOUNDED PRESCRIPTION Oxygen 2-3 L by nasal cannula. Diagnosis hypoxia, systolic heart failure. Pulse oximetry at rest: Pulse oximetry with ambulation: Pulse oximetry with oxygen and ambulation: ACETAMINOPHEN (TYLENOL EXTRA STRENGTH ORAL) Take 1,000 mg by mouth once daily. As needed COMPOUNDED PRESCRIPTION [place] [facility] S/P ablation for INR checks, assessment and eval of VS, HF and coumadin teaching. Eval for PT.Dx; cardiomyopathy, ID, arrhythmia, CAD, anticoagulation. COMPOUNDED PRESCRIPTION S/P ablation for VT. Pt requires INR, assessment and eval VS, coumadin and HF teaching. Dx: Cardiomyopathy, ID, ventricular arrhythmia, CAD, anticoagulation. magnesium oxide (MAG-OX) 400 mg tablet 1 tablet twice weekly aspirin, enteric coated (ECOTRIN LOW STRENGTH) 81 mg EC tablet Take 1 tablet by mouth once daily. cyclobenzaprine (FLEXERIL) 10 mg tablet Take 0.5-1 tablets by mouth twice daily as needed for Muscle Spasm. warfarin (COUMADIN) 5 mg tablet Take 1 tablet by mouth once daily. FAMILY HISTORY Problem Relation Age of Onset - Heart Mother CVA - Coronary Artery Disease Mother - Stroke Mother - Prostate Cancer Father - Stroke Maternal Grandfather - Diabetes Maternal Grandmother - Cancer Sister Primary not known. Social History Tobacco Use - Smoking status: Former Smoker Packs/day: 1.00 Years: 61.00 Pack years: 61.00 Types: Cigarettes Start date: 1953 Quit date: 05/15/2016 Years since quittin.3 - Smokeless tobacco: Never Used - Tobacco comment: P (more content not included)...[facility] 08-23-2020 NoteHNO ID: [id number] Author: Beka Cunningham RN Service: ? Author Type: Registered Nurse Type: Progress Notes Filed: 08/23/2020 11:14 AM Note Text: InSight CDM Enrollment Provider Action/FYI: 2nd Call to Pt left a message related to Disease Mgt Program Patient referred by: [facility] Ian Contact made with patient: No - 2nd attempt to reach patient, left another message: Hi my name is Nathalie Ireland RN and I am calling from the [facility] on behalf of your PCP, Nidia Geiger MD. We are excited to share with you a new program to help you manage your health. Please call me back at [phone]. I hope you can take the time to speak with me. (Keep encounter open for additional two business days in case patient calls back. Close encounter if no response by end of second business day) Closing: Could not reach the patient after two attempted outreaches. [employer] to retry patient in one week. END OUTREACH Nathalie Ireland RN August 23, 2020 11:05 [facility]07-14-2021 NoteHNO ID: [id number] Author: Beka Cunningham RN Service: ? Author Type: Registered Nurse Type: Progress Notes Filed: 08/23/2020 11:14 AM Note Text: InSight CDM Enrollment Provider Action/FYI: Call to Pt left a message related to Disease Mgt Program Patient referred by: [facility] Ian Contact made with patient: No - Left Message: Hi my name is Nathalie Ireland RN and I am calling from the [facility] on behalf of your PCP, Nidia Geiger MD. We are excited to share with you a new program to help you manage your health. Please call me back at [phone] between the hours of 8am-5pm Thursday-Thursday. You will receive another phone call from me within the next two business days. I hope you can take the time to speak with me. (Keep encounter open and attempt 2nd outreach in two business days from today) END OUTREACH Nathalie Ireland RN August 22, 2020 2:[address] [facility]07-14-2021 NotePatient Outreach ([facility]) ONOFRE LEOSYD Silverio ([id number]) 1945 Date Time Provider Department 08/22/20 BEKA [place] [facility] During your visit today, we recorded the following information about you: Nathalie Ireland RN 08/23/2020 11:14 AM Signed [employer] [facility] Enrollment Provider Action/FYI: Call to Pt left a message related to Disease Mgt Program Patient referred by: [facility] Ian Contact made with patient: No - Left Message: Hi my name is Nathalie Ireland RN and I am calling from the [facility] on behalf of your PCP, Nidia Geiger MD. We are excited to share with you a new program to help you manage your health. Please call me back at [phone] between the hours of 8am-5pm Thursday-Thursday. You will receive another phone call from me within the next two business days. I hope you can take the time to speak with me. (Keep encounter open and attempt 2nd outreach in two business days from today) END OUTREACH Nathalie Ireland RN August 22, 2020 2:51 PM Nathalie Ireland RN 08/23/2020 11:14 AM Signed [employer] [facility] Enrollment Provider Action/FYI: 2nd Call to Pt left a message related to Disease Mgt Program Patient referred by: [facility] Ian Contact made with patient: No - 2nd attempt to reach patient, left another message: Hi my name is Nathalie Ireland RN and I am calling from the [facility] on behalf of your PCP, Nidia Geiger MD. We are excited to share with you a new program to help you manage your health. Please call me back at [phone]. I hope you can take the time to speak with me. (Keep encounter open for additional two business days in case patient calls back. Close encounter if no response by end of second business day) Closing: Could not reach the patient after two attempted outreaches. [employer] to retry patient in one week. END OUTREACH Nathalie Ireland RN August 23, 2020 11:05 AM Allergies As of Date: 08/22/2020 Noted Allergy Reaction AMIODARONE 02/17/2018 14 - Other: See Comments Comments: Pulmonary fibrosis GEMFIBROZIL 02/26/2009 5 - Intolerance Comments: Upset stomach; constipation NEXIUM (ESOMEPRAZOLE MAGNESIUM) 01/26/2017 8 - GI Upset Date Reviewed: 07/05/2020 Reviewed by: Eugenie Mccollum APRN.HOME THERAPY CLINICIAN - Fully Assessed Reason for Visit: Community Monitoring Outreach [Other] Cmt: CHF Primary Visit Diagnosis:Dilated cardiomyopathy (HCC) [I42.0] Order(s):CONSULT TO PRIMARY CARE COORDINATION [facility] [[id number]] Order #: [id number]: 1 Prescriptions as of 08/23/2020 - traZODone (DESYREL) 50 mg tablet Take 1 tablet by mouth daily at bedtime. - famotidine (PEPCID) 20 mg tablet Take 1 tablet by mouth at bedtime as needed. - pantoprazole DR (PROTONIX) 40 mg tablet Take 1 tablet by mouth twice daily. - loperamide HCl (IMODIUM A-D) 2 mg tab Take 1 tablet by mouth as needed. for 3 or more BMs per day - ondansetron (ZOFRAN) 4 mg tablet Take 1 tablet by mouth once daily as needed. for nausea - metoprolol succinate ER (TOPROL XL) 50 mg 24 hr tablet Take 1 tablet by mouth once daily. Dr. Odom - furosemide (LASIX) 40 mg tablet Take 1.5 tablets by mouth twice daily. - potassium chloride SR (MICRO-K) 10 mEq CR capsule Take 2 capsules by mouth twice daily. - cyclobenzaprine (FLEXERIL) 10 mg tablet Take 0.5-1 tablets by mouth twice daily as needed for Muscle Spasm. - Alpha Lipoic Acid 600 mg cap Take 1 capsule by mouth once daily. - spironolactone (ALDACTONE) 25 mg tablet Take 1 tablet by mouth twice daily. - atorvastatin (LIPITOR) 40 mg tablet Take 1 tablet by mouth once daily. - warfarin (COUMADIN) 5 mg tablet Take 1 tablet by mouth once daily. - warfarin (COUMADIN) 7.5 mg tablet Take 1 tablet by mouth once daily. - sacubitril-valsartan (ENTRESTO) 49-51 mg tablet Take 1 tablet by mouth twice daily. - COMPOUNDED PRESCRIPTION Oxygen 2-3 L by nasal cannula. Diagnosis hypoxia, systolic heart failure. Pulse oximetry at rest: Pulse oximetry with ambulation: Pulse oximetry with oxygen and ambulation: - ACETAMINOPHEN (TYLENOL EXTRA STRENGTH ORAL) Take 1,000 mg by mouth once daily. As needed - COMPOUNDED PRESCRIPTION Home health S/P ablation for INR checks, assessment and eval of VS, HF and coumadin teaching. Eval for PT. Dx; cardiomyopathy, ID, arrhythmia, CAD, anticoagulation. - COMPOUNDED PRESCRIPTION S/P ablation for VT. Pt requires INR, assessment and eval VS, coumadin and HF teaching. Dx: Cardiomyopathy, ID, ventricular arrhythmia, CAD, anticoagulation. - magnesium oxide (MAG-OX) 400 mg tablet 1 tablet twice weekly - aspirin, enteric coated (ECOTRIN LOW STRENGTH) 81 mg EC tablet Take 1 tablet by mouth once daily. Meds Comments as of 06/04/2012: Problem List As Of Date 08/22/2020 Noted Resolved LUMBAGO [M54.5] 10/15/2005 SCIATICA [M54.30] 10/15/2005 CARPAL TUNNEL SYNDROME [G56.00] 01/09/2006 (more content not included)...[facility]04-28-2021 History of Present illness Narrative* Monico Adams, RT(R) - 06/06/2020 5:10 PM EDT Radiology Service Progress Note PATIENT NAME: Eduard Leos DATE OF SERVICE: June 06, 2020 TIME: 5:16 PM PATIENT IDENTITY VERIFICATION COMPLETED USING TWO (2) IDENTIFIERS: Name and Date of confirmedby patient verbally. FALL SCREENING: Has the patient had 2 falls in the last year or 1 fall with injury or currently using an Ambulatory Assistive Device (Walker, Cane, Wheelchair, Crutches, etc.)? No PATIENT GENDER DATA: Male PATIENT RELEVANT IMPLANT DATA REVIEWED: Not Applicable RADIOLOGY DEPARTMENT: General X-ray: Exam(s) Completed: Chest X-Ray Spine X-Ray(s): Thoracic PERIPHERAL IV DATA: Not applicable SIGNED BY: RT Calixto(R) June 06, 2020 5:16 PM [facility] History of Past illness Narrative* Problem Noted Date Resolved Date Dyspepsia 01/27/2017 12/14/2020 Overview: Added automatically from request for surgery [id number] Nausea 01/27/2017 12/14/2020 Overview: Added automatically from request for surgery [id number] Encounter for monitoring anti-arrhythmic therapy 10/23/2015 12/14/2020 VT (ventricular tachycardia) 07/24/201506/2020 Impaired fasting glucose 02/26/2009 022 Brain tumor 02/26/2009 12/14/2020 Overview: benign per evaluation at [facility] Carpal tunnel syndrome 01/09/2006 8 Lateral epicondylitis of elbow 01/09/2006 0 04/05/2007 documented as of this encounter (statuses as of 05/06/2021) [facility]12-19-2017 History of Past illness Narrative* Problem Noted Date Resolved Date Dyspepsia 01/27/2017 12/14/2020 Overview: Added automatically from request for surgery [id number] Nausea 01/27/2017 12/14/2020 Overview: Added automatically from request for surgery [id number] Encounter for monitoring anti-arrhythmic therapy 10/23/2015 12/14/2020 VT (ventricular tachycardia) 07/24/201506/2020 Impaired fasting glucose 02/26/2009 022 Brain tumor 02/26/2009 12/14/2020 Overview: benign per evaluation at [facility] Carpal tunnel syndrome 01/09/2006 8 Lateral epicondylitis of elbow 01/09/2006 0 04/05/2007 documented as of this encounter (statuses as of 05/06/2021) [facility] History of Past illness Narrative* Problem Noted Date Resolved Date Dyspepsia 01/27/2017 12/14/2020 Overview: Added automatically from request for surgery [id number] Nausea 01/27/2017 12/14/2020 Overview: Added automatically from request for surgery [id number] Encounter for monitoring anti-arrhythmic therapy 10/23/2015 12/14/2020 VT (ventricular tachycardia) 07/24/201506/2020 Impaired fasting glucose 02/26/2009 022 Brain tumor 02/26/2009 12/14/2020 Overview: benign per evaluation at [facility] Carpal tunnel syndrome 01/09/2006 8 Lateral epicondylitis of elbow 01/09/2006 0 04/05/2007 documented as of this encounter (statuses as of 05/31/2021) [facility] History of Past illness Narrative* Problem Noted Date Resolved Date Dyspepsia 01/27/2017 12/14/2020 Overview: Added automatically from request for surgery [id number] Nausea 01/27/2017 12/14/2020 Overview: Added automatically from request for surgery [id number] Encounter for monitoring anti-arrhythmic therapy 10/23/2015 12/14/2020 VT (ventricular tachycardia) 07/24/201506/2020 Impaired fasting glucose 02/26/2009 022 Brain tumor 02/26/2009 12/14/2020 Overview: benign per evaluation at [facility] Carpal tunnel syndrome 01/09/2006 8 Lateral epicondylitis of elbow 01/09/2006 0 04/05/2007 documented as of this encounter (statuses as of 06/13/2021) [facility] History of Past illness Narrative* Problem Noted Date Resolved Date Dyspepsia 01/27/2017 12/14/2020 Overview: Added automatically from request for surgery [id number] Nausea 01/27/2017 12/14/2020 Overview: Added automatically from request for surgery [id number] Encounter for monitoring anti-arrhythmic therapy 10/23/2015 12/14/2020 VT (ventricular tachycardia) 07/24/201506/2020 Impaired fasting glucose 02/26/2009 022 Brain tumor 02/26/2009 12/14/2020 Overview: benign per evaluation at [facility] Carpal tunnel syndrome 01/09/2006 8 Lateral epicondylitis of elbow 01/09/2006 0 04/05/2007 documented as of this encounter (statuses as of 08/05/2021) [facility]05-01-2014 Evaluation note* Diagnosis Onset Date Resolution Status Chronic systolic (congestive) heart failure chronic Ischemic cardiomyopathy 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 PAF (paroxysmal atrial fibrillation) chronic Presence of implantable card ioverter-defibrillator (ICD) Jun, 2013 chronic BPH (benign prostatic hyperplasia) chronic Chronic diarrhea chronic Chronic systolic (congestive) heart failure chronic PAF (paroxysmal atrial fibrillation) chronic Weight loss, non-intentional chronic [facility] Work Phone: [phone]) 393-254405-01-2014 Evaluation note* Diagnosis Onset Date Resolution Status Chronic systolic (congestive) heart failure chronic Ischemic cardiomyopathy 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 PAF (paroxysmal atrial fibrillation) chronic Presence of implantable card ioverter-defibrillator (ICD) Jun, 2013 chronic BPH (benign prostatic hyperplasia) chronic Chronic diarrhea chronic Chronic systolic (congestive) heart failure chronic PAF (paroxysmal atrial fibrillation) chronic Weight loss, non-intentional chronic Chronic systolic (congestive) heart failure chronic 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 Mixed hyperlipidemia chronic PAF (paroxysmal atrial fibrillation) chronic Presence of implantable card ioverter-defibrillator (ICD) Jun, 2013 chronic Presence of stent in coronary artery February, chronic History of cardiac radiofrequency ablation resolved Type 2 diabetes mellitus acu te CKD (chronic kidney disease), stage III chronic Essential hypertension chron ic Dyspnea on exertion acute 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 PAF (paroxysmal atrial fibrillation) chronic Presence of implantable card ioverter-defibrillator (ICD) Jun, 2013 chronic Nicotine dependence, cigarettes, in remission acute Nocturnal hypoxia acute [facility] Work Phone: [phone]) 911-258405-01-2014 Evaluation note* Diagnosis Onset Date Resolution Status Chronic systolic (congestive) heart failure chronic 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 PAF (paroxysmal atrial fibrillation) chronic Presence of implantable card ioverter-defibrillator (ICD) Jun, 2013 chronic Nicotine dependence, cigarettes, in remission acute Nocturnal hypoxia acute CKD (chronic kidney disease), stage III chronic Essential hypertension chron ic Type 2 diabetes mellitus chr onic Chronic systolic (congestive) heart failure chronic 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 cardiomyopathy 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 PAF (paroxysmal atrial fibrillation) chronic Presence of implantable card ioverter-defibrillator (ICD) Jun, 2013 chronic Sustained VT (ventricular tachycardia) chronic History of cardiac radiofrequency ablation resolved Chronic systolic (congestive) heart failure chronic 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 Mixed hyperlipidemia chronic PAF (paroxysmal atrial fibrillation) chronic Presence of implantable card ioverter-defibrillator (ICD) Jun, 2013 chronic Presence of stent in coronary artery February, chronic History of cardiac radiofrequency ablation resolved [facility] Work Phone: [phone]) [phone] Evaluation note* Diagnosis Onset Date Resolution Status Chronic systolic (congestive) heart failure chronic 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 cardiomyopathy 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 PAF (paroxysmal atrial fibrillation) chronic Presence of implantable card ioverter-defibrillator (ICD) Jun, 2013 chronic Sustained VT (ventricular tachycardia) chronic History of cardiac radiofrequency ablation resolved Chronic systolic (congestive) heart failure chronic 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 Mixed hyperlipidemia chronic PAF (paroxysmal atrial fibrillation) chronic Presence of implantable card ioverter-defibrillator (ICD) Jun, 2013 chronic Presence of stent in coronary artery February, chronic History of cardiac radiofrequency ablation resolved Chronic systolic (congestive) heart failure chronic PAF (paroxysmal atrial fibrillation) chronic Presence of implantable card ioverter-defibrillator (ICD) Jun, 2013 chronic Sustained VT (ventricular tachycardia) chronic History of cardiac radiofrequency ablation resolved [facility] Work Phone: [phone]) [phone] Evaluation note* Diagnosis Onset Date Resolution Status Chronic systolic (congestive) heart failure chronic 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 Mixed hyperlipidemia chronic PAF (paroxysmal atrial fibrillation) chronic Presence of implantable card ioverter-defibrillator (ICD) Jun, 2013 chronic Presence of stent in coronary artery February, chronic History of cardiac radiofrequency ablation resolved Chronic systolic (congestive) heart failure chronic PAF (paroxysmal atrial fibrillation) chronic Presence of implantable card ioverter-defibrillator (ICD) Jun, 2013 chronic Sustained VT (ventricular tachycardia) chronic History of cardiac radiofrequency ablation resolved PAF (paroxysmal atrial fibrillation) chronic Presence of implantable card ioverter-defibrillator (ICD) Jun, 2013 chronic Sustained VT (ventricular tachycardia) chronic History of cardiac radiofrequency ablation resolved CKD (chronic kidney disease), stage III chronic Heart failure with reduced ejection fraction chronic Type 2 diabetes mellitus chr [facility] Work Phone: [phone]) [phone] Evaluation note* Diagnosis Onset Date Resolution Status PAF (paroxysmal atrial fibrillation) chronic Presence of implantable card ioverter-defibrillator (ICD) Jun, 2013 chronic Sustained VT (ventricular tachycardia) chronic History of cardiac radiofrequency ablation resolved CKD (chronic kidney disease), stage III chronic Heart failure with reduced ejection fraction chronic Type 2 diabetes mellitus chr onic Dyspnea on exertion acute Amiodarone toxicity chronic Chronic systolic (congestive) heart failure chronic Essential hypertension chron ic 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 cardiomyopathy 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 Mixed hyperlipidemia chronic PAF (paroxysmal atrial fibrillation) chronic Presence of implantable card ioverter-defibrillator (ICD) Jun, 2013 chronic Presence of stent in coronary artery February, chronic History of cardiac radiofrequency ablation resolved [facility] Work Phone: Discharge summary Author Jeb Cuellar [facility] Note Date/Time June 04, 2024 4:3 2am [facility] Medical Records Department [address] [place] [address] Emergency Department Summary 06/04/24 MR#: [id number] Acct: [id number] Name: EDUARD LEOS III Rep #: [id number] : 1945 79 From: Jeb Cuellar MD PCP: Dr. Luis Hay MD Status:R EG ER Location: ED HPI History of Present Illness Chief Complaint: Chest Pain Informant: patient and EMS Narrative Narrative: 79-year-old male states he woke up 1 or 2 hours ago with racing heartbeat that he measured at around 135, and chest pressure and some trouble breathing. He laid there for about an hour and it persisted so he called EMS, now it is completely gone and he feels better. He had no syncope. Symptoms woke him up. No recent illness. He has a history of heart stents, significant cardiomyopathywith a 15% ejection fraction in the past, episodes of ventricular tachycardia inthe past, and an AICD. It did not fire tonight. His device is a [facility] Medical History Odynophagia Viral syndrome Hearing difficulty Hemorrhoids Hypersomnolence IVON (obstructive sleep apnea) Heart failure with reduced ejection fraction Flu vaccine need CKD (chronic kidney disease), stage III Type 2 diabetes mellitus Hyperglycemia Chronic diarrhea BPH (benign prostatic hyperplasia) Weight loss, non-intentional Atrial fibrillation group home (current) use of anticoagulants Presence of stent in coronary artery (~02/21/13) Mixed hyperlipidemia CVA (cerebral vascular accident) Chronic systolic (congestive) heart failure Ischemic cardiomyopathy Atherosclerotic heart disease of [place] coronary artery without angina pectoris Essential hypertension Home Medications ?Medication ?Instructions ?Recorded ?Last Taken ?Type acetaminophen 500 mg tablet 1,000 mg PO PRN PRN Pain 0 08/22/17 09/28/23 History lactobacillus combination no.8 3 3,000 mmu cells PO DA JACINTO supplement 09/02/19 09/28/23 History billion cell capsule (Adult Probiotic) blood sugar diagnostic (FreeStyle #100 ea 05/06/21 Unk nown Rx Lite Strips) blood-glucose meter (FreeStyle #1 ea 05/06/21 Unknown Rx Lite Meter kit) blood glucose control, low (True #1 ea 08/11/22 Unknow n Rx Metrix Level 1 solution) lancing device (TRUEdraw Lancing #1 ea 08/11/22 Unknow n Rx Device) alcohol swabs (DropSafe Alcohol See Rx Instructions .R oute 11/27/22 Unknown Rx Prep Pads) .COMPLEX #200 swabs glimepiride 4 mg tablet 4 mg PO BID diabetes 3 month s #180 05/22/23 09/28/23 Rx tabs pantoprazole 40 mg tablet,delayed 40 mg PO BID reflux #180 tabs 05/27/23 09/28/23 Rx release Handicap Placard #1 ea 07/20/23 Unknown Rx cyclobenzaprine 10 mg tablet 10 mg PO Q12H PRN Muscle Spasm 10/05/23 Unknown Rx #180 tabs lancets 28 gauge (FreeStyle #200 ea 10/05/23 Unknown R x Lancets) lancets 33 gauge (TRUEplus Lancets) #300 ea 10/05/23 U nknown Rx potassium chloride 10 mEq 20 meq (2 x 10 mEq) PO BID # 360 10/21/23 Unknown Rx capsule,extended release caps trazodone 50 mg tablet 50 mg PO QHS sleep #90 tabs 10/21/23 Unknown Rx blood sugar diagnostic (True #300 ea 11/18/23 Unknown Rx Metrix Glucose Test Strip) famotidine 20 mg tablet 20 mg PO DAILY reflux #90 ta bs 11/30/23 Unknown Rx spironolactone 25 mg tablet 25 mg PO BID blood pressur e #180 11/30/23 Unknown Rx tabs aspirin 81 mg tablet,delayed 81 mg PO QDAY 12/10/23 Un known History release finasteride 5 mg tablet 5 mg PO QDAY 12/10/23 Unknow n History magnesium 200 mg tablet 200 mg PO QWEEK supplement 1 Unknown History warfarin 7.5 mg tablet See Rx Instructions .Route 1 03/29/23 Unknown History .COMPLEX blood thinner metoprolol succinate 50 mg 50 mg PO DAILY #90 TABLETS 03/02/24 Unknown Rx tablet,extended release 24 hr sacubitril 49 mg-valsartan 51 mg 1 tab PO BID heart #1 80 tabs 04/04/24 Unknown Rx tablet (Entresto) atorvastatin 40 mg tablet 40 mg PO QHS cholesterol #90 tabs 05/16/24 Unknown Rx metformin 1,000 mg tablet 1,000 mg PO BID diabetes #18 0 tabs 05/18/24 Unknown Rx furosemide 20 mg tablet 10 mg PO DAILY 06/04/24 Unkn own History hydrocortisone 2.5 % topical cream 1 applic MO BID PRN PRN hemorrhoids 06/04/24 Unknown History with perineal applicator Allergy/AdvReac Type Severity Reaction Status Date / Time gemfibrozil Allergy Intermediate upset Verified 06/04/24 01:39 stomach; constipation amiodarone AdvReac 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 esomeprazole magnesium (From AdvReac Diarrhea Verified 06/04/24 01:39 Nexium) Family History Mother CVA (cerebral vascular accident) Grandfather Heart disease Father Cancer testicular Sister Cancer Breast Surgical History History of cholecystectomy Presence of coronary angioplasty implant and graft (~02/21/13) History of cardiac radiofrequency ablation Presence of implantable cardioverter-defibrillator (ICD) (~06/21/13) Social History household members: spouse housing: house number of children: 3 current occupational status: retired current occupational exposures/hazards: No Smoking Status: Former smoker quit date: 02/09/15 pack-years: 122 Tobacco: How many years used: 61 Electronic Cigarette Use: not used second hand exposure: Yes alcohol intake: never substance use type: does not use ROS ROS ED Constitutional Constitutional ED: Denies chills or fever(s) Eyes Eyes: Denies change in vision or diplopia ENT ENT ED: Denies rhinorrhea or sore throat Cardiovascular Cardiovascular: Reports as per HPI, chest pain, palpitations and racing heartbeat; Denies lightheadedness or syncope Respiratory/Chest Respiratory/Chest: Reports dyspnea; Denies cough Gastrointestinal Gastrointestinal: Denies abdominal pain, diarrhea, nausea or vomiting Genitourinary Genitourinary ED: Denies dysuria or hematuria Musculoskeletal Musculoskeletal: Denies back pain or neck pain Integumentary Denies abscess or rash Neurologic Neurologic: Denies headache(s), paresthesias or weakness Psychiatric Psychiatric: Denies anxiety or suicidal thoughts EXAM Physical Exam Const Vital Signs: 06/04/24 01:35 06/04/24 01:43 06/04/24 01:55 Temperature 97.7 F L Temperature Source Oral Pulse Rate 82 Respiratory Rate 18 Respiratory Effort Short of Breath Blood Pressure 129/86 H Blood Pressure Mean 100 Pulse Ox 94 93 Oxygen Delivery Method Room Air Room Air 06/04/24 02:35 06/04/24 02:57 06/04/24 04:00 Temperature Temperature Source Pulse Rate 69 68 71 Respiratory Rate 20 H 19 H 14 Respiratory Effort Blood Pressure 118/100 H 117/84 H Blood Pressure Mean 106 95 Pulse Ox 92 92 95 Oxygen Delivery Method Room Air Room Air Room Air 06/04/24 04:22 Temperature 98.4 F Temperature Source Pulse Rate 63 Respiratory Rate 17 Respiratory Effort Blood Pressure 117/84 H Blood Pressure Mean 95 Pulse Ox 92 Oxygen Delivery Method Positive well nourished and well developed General Appearance ED: well developed and NAD HEENT Reports moist mucous membranes normocephalic and atraumatic Eyes PERRL and EOMs intact bilaterally Neck full ROM and supple Resp normal respiratory effort and clear to auscultation bilaterally Effort and Inspection: Negative for respiratory distress Cardio regular rate, regular rhythm and no murmurs Rate: Negative for tachycardic Peripheral Pulses: pulses 2+ throughout GI non-tender and non-distended Auscultation: normoactive bowel sounds Palpation: soft Back/Spine no CVA tenderness General Back: other FROM Extremity normal to inspection General Extremety ED: Negative for edema, pulses abnormal or tenderness General Extremity: Negative for edema or pulses abnormal Neuro oriented x3, CN's II-XII intact bilaterally and no sensory deficits noted Sensorium / Orientation: awake and alert Motor Exam: strength 5/5 throughout Skin no rashes or lesions noted and no wounds MDM MDM MDM Narrative Medical decision making narrative: Patient's vital signs are normal, he is asymptomatic, his EKG shows a left anterior fascicular block, couple PVCs some occasional pacing, no acute injury pattern, and is otherwise unchanged compared with his old. Chest x-ray 1 view on my interpretation shows no acute abnormality radiology in agreement. Labs are noted and unremarkable except for a subtherapeutic INR 1.4, he is on warfarin. We monitored him until we obtained a second troponin, and we also queried his [employer] AICD. I reviewed this report, and I spoke with the civil cadd technician for [facility] who reviewed it as well. The patient had 5 episodes that were labeled as SVT by the device, he had no episodes of ventricular fibrillation or V. tach. These 5 episodes all occurred this morning and match the timeframe when the patient had the symptoms as I reviewed them with him. 1 episode lasted for 15 minutes, the rest of the episodes were less than 1 minute. The ventricular response is irregular, therefore the civil cadd technician states this is all consistent with runs of A-fib, and it appeared that he had been having nonsustained episodes of A-fib for the past week or so. He had no recurrent episodes of A-fib or symptoms while in the emergency department. His second troponin returns negative, the delta is 2 and they are both within normal limits. Given that he is already anticoagulated albeit a little subtherapeutic, is on metoprolol, and has an appointment with his display designer outside after the weekend on Thursday, I am okay with him being discharged and following up as scheduled. He is comfortable with that plan. Lab Data Attestation: I reviewed the patient's lab results. Labs: Laboratory Results - last 24 hr 06/04/24 06/04/24 01:40 03:40 WBC 9.9 RBC 4.69 Hgb 14.8 Hct 43.1 MCV 91.9 MCH 31.6 MCHC 34.3 RDW Std Deviation 44.1 H RDW Coeff of Vane 13.2 Plt Count 186 MPV 10.5 Immature Gran % (Auto) 0.300 Neut % (Auto) 46.9 L Lymph % (Auto) 40.9 Cataño % (Auto) 8.9 Eos % (Auto) 2.4 Baso % (Auto) 0.6 Absolute Neuts (auto) 4.6 Absolute Lymphs (auto) 4.04 Nucleated RBC % 0 PT 17.3 H INR 1.4 Sodium 138 Potassium 4.1 Chloride 102 Carbon Dioxide 21.5 Anion Gap 15 BUN 15 Creatinine 1.37 H Estim Creat Clear Calc 53.89 Est GFR (MDRD) Non-Af 53 L BUN/Creatinine Ratio 11.1 Glucose 176 H Calcium 9.1 Troponin T High Sens 12 Troponin T Hi Sens 2 Hr 14 Radiography Diagnostic Testing: Clinical Impression(s) from Imaging Studies Chest X-Ray 06/04/24 02:08 IMPRESSION: No acute cardiopulmonary process. Reading Location: [facility] Rhythm Strip Rhythm Strip: Sinus Rhythm Rate: 80 Ectopy: PVC(s) EKG Initial EKG: Attestation: I personally reviewed and interpreted this EKG as follows: Interpretation: Sinus Rhythm (With occasional atrial pacing and occasionalPVCs), No Acute Injury Pattern and LAFB Prior EKG tracings: available for review Prior: Unchanged Management Discussion w/another healthcare provider: [employer] ([employer] [place] AICD/pacer civil cadd technician) Discharge Plan Triage Chief Complaint: Chest Pain ED Provider: Jeb Cuellar Dx/Rx/DC Orders Clinical Impression: Chest pain, unspecified, Paroxysmal atrial fibrillation, Subtherapeutic international normalized ratio (INR) Instructions: ED AFIB Prescriptions: No Action Adult Probiotic 3 billion cell capsule 3,000 mmu cells PO DAILY Rx Instructions: administer with a meal magnesium 200 mg tablet 200 mg PO QWEEK (DME) Handicap Placard See Rx Instructions .ROUTE .MEDSUPPLY Qty: 1 0RF Rx Instructions: As directed, length of time 3 years aspirin 81 mg tablet,delayed release (DR/EC) 81 mg PO QDAY finasteride 5 mg tablet 5 mg PO QDAY warfarin 7.5 mg tablet See Rx Instructions .ROUTE .COMPLEX Protocol: Dose Management Condition: Thursday Dose/Route: 3.75 mg Instruction: 0.5 x 7.5 mg tablets Condition: Thursday Dose/Route: 7.5 mg Instruction: 1 x 7.5 mg tablet Condition: Thursday Dose/Route: 7.5 mg Instruction: 1 x 7.5 mg tablet Condition: Thursday Dose/Route: 7.5 mg Instruction: 1 x 7.5 mg tablet Condition: Dose/Route: 7.5 mg Instruction: 1 x 7.5 mg tablet Condition: Thursday Dose/Route: 7.5 mg Instruction: 1 x 7.5 mg tablet Condition: Thursday Dose/Route: 3.75 mg Instruction: 0.5 x 7.5 mg tablets Protocol Text: Adjustment Start Date: Thursday05/27/24 INR Value: 2.3 INR Date: 05/27/24 Recheck Date: 06/10/24 Dose Instruction: TAKE 1 TABLET EVERY DAY Rx Instructions: TAKE 1 TABLET five times per week 1/2 tablet twice weekly acetaminophen 500 MG tablet 1,000 mg PO PRN PRN (Reason: Pain) hydrocortisone 2.5 % cream with perineal applicator 1 applic MO BID PRN PRN (Reason: hemorrhoids) furosemide 20 mg tablet 10 mg PO DAILY (DME) FreeStyle Lite Strips Strip See Rx Instructions .MEDSUPPLY Qty: 100 3RF Rx Instructions: check blood glucose 2 x daily for type 2 DM (DME) blood-glucose meter [FreeStyle Lite Meter] Kit See Rx Instructions .MEDSUPPLY Qty: 1 0RF Rx Instructions: As directed, check blood glucose 2x daily for type 2 DM (DME) lancing device [TRUEdraw Lancing Device] Misc See Rx Instructions .ROUTE .COMPLEX Qty: 1 3RF Dose Instruction: USE DIRECTED Rx Instructions: USE DIRECTED (DME) True Metrix Level 1 Solution See Rx Instructions .ROUTE .COMPLEX Qty: 1 3RF Dose Instruction: USE DIRECTED WITH GLUCOSE METER Rx Instructions: USE DIRECTED WITH GLUCOSE METER alcohol swabs [DropSafe Alcohol Prep Pads] Pads, Medicated See Rx Instructions .ROUTE .COMPLEX Qty: 200 3RF Dose Instruction: USE DIRECTED Rx Instructions: USE DIRECTED glimepiride 4 mg tablet 4 mg PO BID 90 Days Qty: 180 3RF pantoprazole 40 mg tablet,delayed release (DR/EC) 40 mg PO BID Qty: 180 3RF (DME) lancets [FreeStyle Lancets] 28 gauge misc See Rx Instructions .MEDSUPPLY Qty: 200 3RF Rx Instructions: check blood glucose 2x daily for type 2 DM (DME) lancets [TRUEplus Lancets] 33 gauge misc See Rx Instructions .ROUTE .COMPLEX Qty: 300 3RF Dose Instruction: TEST BLOOD GLUCOSE THREE TIMES DAILY Rx Instructions: TEST BLOOD GLUCOSE THREE TIMES DAILY cyclobenzaprine 10 mg tablet 10 mg PO Q12H PRN (Reason: Muscle Spasm) Qty: 180 3RF potassium chloride 10 mEq capsule, extended release 20 meq PO BID Qty: 360 3RF trazodone 50 mg tablet 50 mg PO QHS Qty: 90 3RF (DME) True Metrix Glucose Test Strip Strip See Rx Instructions .Route Qty: 300 3RF Rx Instructions: use three times daily to monitor blood glucose for type 2 DM spironolactone 25 mg tablet 25 mg PO BID Qty: 180 3RF famotidine 20 mg tablet 20 mg PO DAILY Qty: 90 3RF metoprolol succinate 50 mg tablet extended release 24 hr 50 mg PO DAILY Qty: 90 3RF Entresto 49-51 mg tablet 1 tab PO BID Qty: 180 4RF atorvastatin 40 mg tablet 40 mg PO QHS Qty: 90 3RF metformin 1,000 mg tablet 1,000 mg PO BID Qty: 180 3RF Primary Care Provider: Luis Hay Referrals: Barry Odom MD [Med Staff - Active Staff] - Keep [facility] appointment Activity Restrictions/Additional Instructions: Your INR today is 1.4, a little low. Take an extra half tablet of warfarin at your next dose; if your next dose is half of a pill, then just take a single pill. Print Language: Swazi Disposition Disposition: Home, Self Care What to do if you have Problems For any increased pain, shortness of breath, bleeding, nausea or vomiting, chestpain, or any unexpected problems, contact your Primary Care Provider. Call [facility] ([phone]) or report to the closest Emergency Room. Call 911 if necessary. 06/04/24 0432 <Electronically signed by Jeb Cuellar MD> Cosigner Signature (if applicable): CC: Dr. Barry Odom MD; Dr. Luis Hay MD ~ Signed [facility] Work Phone: Evaluation note* Diagnosis Amiodarone pulmonary toxicity- Primary Respiratory conditions due to other specified external agents Dyspnea and respiratory abnormalities Other dyspnea and respiratory abnormality [facility] Onset Date Resolution Status BPH (benign prostatic hyperplasia) chronic Chronic diarrhea chronic Chronic systolic (congestive) heart failure chronic PAF (paroxysmal atrial fibrillation) chronic Weight loss, non-intentional chronic Chronic systolic (congestive) heart failure chronic 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 PAF (paroxysmal atrial fibrillation) chronic Presence of implantable card ioverter-defibrillator (ICD) Jun, 2013 chronic Nicotine dependence, cigarettes, in remission acute Nocturnal hypoxia acute CKD (chronic kidney disease), stage III chronic Essential hypertension chron ic Type 2 diabetes mellitus chr onic Chronic systolic (congestive) heart failure chronic 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 cardiomyopathy 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 PAF (paroxysmal atrial fibrillation) chronic Presence of implantable card ioverter-defibrillator (ICD) Jun, 2013 chronic Sustained VT (ventricular tachycardia) chronic History of cardiac radiofrequency ablation resolved Chronic systolic (congestive) heart failure chronic 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 PAF (paroxysmal atrial fibrillation) chronic Presence of implantable card ioverter-defibrillator (ICD) Jun, 2013 chronic Nicotine dependence, cigarettes, in remission acute Nocturnal hypoxia acute CKD (chronic kidney disease), stage III chronic Essential hypertension chron ic Type 2 diabetes mellitus chr onic Chronic systolic (congestive) heart failure chronic 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 cardiomyopathy 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 PAF (paroxysmal atrial fibrillation) chronic Presence of implantable card ioverter-defibrillator (ICD) Jun, 2013 chronic Sustained VT (ventricular tachycardia) chronic History of cardiac radiofrequency ablation resolved Chronic systolic (congestive) heart failure chronic 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 PAF (paroxysmal atrial fibrillation) chronic Presence of implantable card ioverter-defibrillator (ICD) Jun, 2013 chronic Sustained VT (ventricular tachycardia) chronic History of cardiac radiofrequency ablation resolved Chronic systolic (congestive) heart failure chronic 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 cardiomyopathy 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 PAF (paroxysmal atrial fibrillation) chronic Presence of implantable card ioverter-defibrillator (ICD) Jun, 2013 chronic Sustained VT (ventricular tachycardia) chronic History of cardiac radiofrequency ablation resolved [facility] Work Phone: Evaluation note* Diagnosis Onset Date Resolution Status Nicotine dependence, cigarettes, in remission acute Nocturnal hypoxia acute CKD (chronic kidney disease), stage III chronic Essential hypertension chron ic Type 2 diabetes mellitus chr onic Chronic systolic (congestive) heart failure chronic 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 cardiomyopathy 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 PAF (paroxysmal atrial fibrillation) chronic Presence of implantable card ioverter-defibrillator (ICD) Jun, 2013 chronic Sustained VT (ventricular tachycardia) chronic History of cardiac radiofrequency ablation resolved Chronic systolic (congestive) heart failure chronic 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 PAF (paroxysmal atrial fibrillation) chronic Presence of implantable card ioverter-defibrillator (ICD) Jun, 2013 chronic Sustained VT (ventricular tachycardia) chronic History of cardiac radiofrequency ablation resolved Chronic systolic (congestive) heart failure chronic 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 cardiomyopathy 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 PAF (paroxysmal atrial fibrillation) chronic Presence of implantable card ioverter-defibrillator (ICD) Jun, 2013 chronic Sustained VT (ventricular tachycardia) chronic History of cardiac radiofrequency ablation resolved Flu vaccine need acute Essential hypertension chron ic Type 2 diabetes mellitus [facility] Work Phone: Evaluation note* Diagnosis Onset Date Resolution Status CKD (chronic kidney disease), stage III chronic Essential hypertension chron ic Type 2 diabetes mellitus [facility] Chronic systolic (congestive) heart failure chronic 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 cardiomyopathy 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 PAF (paroxysmal atrial fibrillation) chronic Presence of implantable card ioverter-defibrillator (ICD) Jun, 2013 chronic Sustained VT (ventricular tachycardia) chronic History of cardiac radiofrequency ablation resolved Chronic systolic (congestive) heart failure chronic 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 PAF (paroxysmal atrial fibrillation) chronic Presence of implantable card ioverter-defibrillator (ICD) Jun, 2013 chronic Sustained VT (ventricular tachycardia) chronic History of cardiac radiofrequency ablation resolved Chronic systolic (congestive) heart failure chronic 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 Mixed hyperlipidemia chronic PAF (paroxysmal atrial fibrillation) chronic Presence of implantable card ioverter-defibrillator (ICD) Jun, 2013 chronic Presence of stent in coronary artery February, chronic History of cardiac radiofrequency ablation resolved [facility] Work Phone: Evaluation note* Diagnosis Onset Date Resolution Status CKD (chronic kidney disease), stage III chronic Essential hypertension chron ic Type 2 diabetes mellitus chr onic Smoking greater than 40 pack years acute Nocturnal hypoxia chronic Amiodarone toxicity chronic Essential hypertension chron ic 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 Work Phone: Evaluation note* Diagnosis Onset Date Resolution Status Flu vaccine need acute Back pain chronic Essential hypertension chron ic Mixed hyperlipidemia chronic Type 2 diabetes mellitus chr onic CKD (chronic kidney disease), stage III chronic Essential hypertension chron ic Hypersomnolence chronic IVON (obstructive sleep apnea) chronic Type 2 diabetes mellitus [facility] Work Phone: Evaluation note* Diagnosis Chronic bilateral thoracic back pain Chest pain, unspecified type SOB (shortness of breath) Shortness of breath documented in this encounter [facility] Discharge instructions Additional Instructions Your INR today is 1.4, a little low. Take an extra half tablet of warfarin at your next dose; if your next dose is half of a pill, then just take a single pill.[facility] Work Phone: Reason for referral (narrative)No reason for referral information availableWKeenan [facility] Work Phone: Summary Purpose Family History No Family History Records Found Relationship Condition Age at Onset Recorded Date/T ariela mother Cerebrovascular accident (CVA) Unknown grandfather Cardiac disease Unknown father Malignant neoplasm Unknown sister Malignant neoplasm Unknown Advance Directives No Advanced Directives Records FoundDocuments on File Type Date Recorded Patient 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 Expl anation Advance Directive(s) 09/24/2017 7:10 AM Advance Directive Response Recorded Date/ Time Advance Directives Yes December 7:31pm Living Will Yes October 07 6:59pm Power of Bench Hand Yes October 07 6:59pm Advance Directive Response Recorded Date/ Time Advance Directives Yes July 04 10:59am Living Will Yes July 04, 2021 1 0:59am Power of Bench Hand Yes July 04, 2021 10:59am Advance Directive Response Recorded Date/ Time Advance Directives on File Yes June 102021 10:59am Name of Medical Power of Bench Hand Britany Wade July 04, 2021 10:59am Advance Directives Yes July 04 10:59am Living Will Yes July 04, 2021 1 0:59am Power of Bench Hand Yes July 04, 2021 10:59am Advance Directive Response Recorded Date/ Time Advance Directives Yes July 04 9:59am Living Will Yes July 04, 2021 9 :59am Power of Bench Hand Yes July 04, 2021 9:59am Advance Directive Response Recorded Date/ Time Living Will Yes September 27 6:24pm Do you have a Healthcare Power of Bench Hand? Yes September 28, 2023 6:24pm Advance Directives Yes July 04 10:59am Advance Directive Response Recorded Date/ Time Do you have a Healthcare Power of Bench Hand? Yes June 04, 2024 1:40am Name of Medical Power of Bench Hand June 04, 2024 1:40am Advance Directives Yes July 04 10:59am Advance Directive Response Recorded Date/ Time Living Will Yes September 27 6:24pm Do you have a Healthcare Power of Bench Hand? Yes September 28, 2023 6:24pm Do you have a Healthcare Power of Bench Hand? 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 CARE- NPP MAILED Approaching SVETA Sees PFM @ 1:30pm 10 m fu ICD check@ 1pm. Approaching SVETA 1 month f/u UPDATE H&P FOR SVETA ICD genraotr change teaching TYPE 2 DM poisoning by other antidysrhythmic DEVICE CHANGE MOODISPAW Reason for Visit Chronic systolic (co ngestive) heart failure Ischemic cardiomyopathy PAF (paroxysmal atrial fibrillation) Presence of implantable cardioverter-defibrillator (ICD) BPH (benign prostatic hyperplasia) Chronic diarrhea Chronic systolic (congestive) heart failure PAF (paroxysmal atrial fibrillation) Weight loss, non-intentional Chronic systolic (congestive) heart failure Ischemic cardiomyopathy PAF (paroxysmal atrial fibrillation) Presence of implantable cardioverter-defibrillator (ICD) Sustained VT (ventricular tachycardia) History of cardiac radiofrequency ablation Atherosclerotic heart disease of [place] coronary artery without angina pectoris Chronic systolic (congestive) heart failure Essential hypertension Ischemic cardiomyopathy Mixed hyperlipidemia PAF (paroxysmal atrial fibrillation) Presence of implantable cardioverter-defibrillator (ICD) Presence of stent in coronary artery History of cardiac radiofrequency ablation Type 2 diabetes mellitus CKD (chronic kidney disease), stage III Essential hypertension Dyspnea on exertion Amiodarone toxicity Atherosclerotic heart disease of 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 CARE- NPP MAILED Approaching SVETA Sees PFM @ 1:30pm 10 m fu ICD check@ 1pm. Approaching SVETA 1 month f/u UPDATE H&P FOR SVETA ICD genraotr change teaching TYPE 2 DM poisoning by other antidysrhythmic DEVICE CHANGE MOODISPAW NICOTINE DEP TYPE 2 DM Reason for Visit Chronic systolic (co ngestive) heart failure Ischemic cardiomyopathy PAF (paroxysmal atrial fibrillation) Presence of implantable cardioverter-defibrillator (ICD) BPH (benign prostatic hyperplasia) Chronic diarrhea Chronic systolic (congestive) heart failure PAF (paroxysmal atrial fibrillation) Weight loss, non-intentional Chronic systolic (congestive) heart failure Ischemic cardiomyopathy PAF (paroxysmal atrial fibrillation) Presence of implantable cardioverter-defibrillator (ICD) Sustained VT (ventricular tachycardia) History of cardiac radiofrequency ablation Atherosclerotic heart disease of [place] coronary artery without angina pectoris Chronic systolic (congestive) heart failure Essential hypertension Ischemic cardiomyopathy Mixed hyperlipidemia PAF (paroxysmal atrial fibrillation) Presence of implantable cardioverter-defibrillator (ICD) Presence of stent in coronary artery History of cardiac radiofrequency ablation Type 2 diabetes mellitus CKD (chronic kidney disease), stage III Essential hypertension Dyspnea on exertion Amiodarone toxicity Atherosclerotic heart disease of [place] coronary artery without angina pectoris Chronic systolic (congestive) heart failure Essential hypertension Ischemic cardiomyopathy Mixed hyperlipidemia PAF (paroxysmal atrial fibrillation) Presence of implantable cardioverter-defibrillator (ICD) Presence of stent in coronary artery History of cardiac radiofrequency ablation Chronic systolic (congestive) heart failure Ischemic cardiomyopathy PAF (paroxysmal atrial fibrillation) Presence of implantable cardioverter-defibrillator (ICD) Nicotine dependence, cigarettes, in remission Nocturnal hypoxia Chief Complaint FERRIS WHEEL OPERATOR, EST. CARE- NPP M CAROLE Approaching SVETA Sees PFM @ 1:30pm 10 m fu ICD check@ 1pm. Approaching SVETA 1 month f/u UPDATE H&P FOR SVETA ICD genraotr change teaching TYPE 2 DM poisoning by other antidysrhythmic DEVICE CHANGE MOODISPAW NICOTINE DEP 3 M FU 2 wk s/p ICD generator change wound check TYPE 2 DM remote ALERT for VHR 4-8 WK F/U Reason for Visit BPH (benign prostati c hyperplasia) Chronic diarrhea Chronic systolic (congestive) heart failure PAF (paroxysmal atrial fibrillation) Weight loss, non-intentional Chronic systolic (congestive) heart failure Ischemic cardiomyopathy PAF (paroxysmal atrial fibrillation) Presence of implantable cardioverter-defibrillator (ICD) Sustained VT (ventricular tachycardia) History of cardiac radiofrequency ablation Atherosclerotic heart disease of [place] coronary artery without angina pectoris Chronic systolic (congestive) heart failure Essential hypertension Ischemic cardiomyopathy Mixed hyperlipidemia PAF (paroxysmal atrial fibrillation) Presence of implantable cardioverter-defibrillator (ICD) Presence of stent in coronary artery History of cardiac radiofrequency ablation CKD (chronic kidney disease), stage III Essential hypertension Type 2 diabetes mellitus Dyspnea on exertion Amiodarone toxicity Atherosclerotic heart disease of [place] coronary artery without angina pectoris Chronic systolic (congestive) heart failure Essential hypertension Ischemic cardiomyopathy Mixed hyperlipidemia PAF (paroxysmal atrial fibrillation) Presence of implantable cardioverter-defibrillator (ICD) Presence of stent in coronary artery History of cardiac radiofrequency ablation Chronic systolic (congestive) heart failure Ischemic cardiomyopathy PAF (paroxysmal atrial fibrillation) Presence of implantable cardioverter-defibrillator (ICD) Nicotine dependence, cigarettes, in remission Nocturnal hypoxia CKD (chronic kidney disease), stage III Essential hypertension Type 2 diabetes mellitus Chronic systolic (congestive) heart failure Ischemic cardiomyopathy PAF (paroxysmal atrial fibrillation) Presence of implantable cardioverter-defibrillator (ICD) Sustained VT (ventricular tachycardia) History of cardiac radiofrequency ablation Chronic systolic (congestive) heart failure Ischemic cardiomyopathy PAF (paroxysmal atrial fibrillation) Presence of implantable cardioverter-defibrillator (ICD) Sustained VT (ventricular tachycardia) History of cardiac radiofrequency ablation Dyspnea on exertion Amiodarone toxicity Atherosclerotic heart disease of [place] coronary artery without angina pectoris Chronic systolic (congestive) heart failure Essential hypertension Ischemic cardiomyopathy Mixed hyperlipidemia PAF (paroxysmal atrial fibrillation) Presence of implantable cardioverter-defibrillator (ICD) Presence of stent in coronary artery History of cardiac radiofrequency ablation Chief Complaint Approaching SVETA Sees PFM @ 1:30pm 10 m fu ICD check@ 1pm. Approaching SVETA 1 month f/u UPDATE H&P FOR SVETA ICD genraotr change teaching TYPE 2 DM poisoning by other antidysrhythmic DEVICE CHANGE MOODISPAW NICOTINE DEP 3 M FU 2 wk s/p ICD generator change wound check TYPE 2 DM remote ALERT for VHR 4-8 WK F/U TYPE 2 DM Reason for Visit Chronic systolic (co ngestive) heart failure Ischemic cardiomyopathy PAF (paroxysmal atrial fibrillation) Presence of implantable cardioverter-defibrillator (ICD) Sustained VT (ventricular tachycardia) History of cardiac radiofrequency ablation Atherosclerotic heart disease of [place] coronary artery without angina pectoris Chronic systolic (congestive) heart failure Essential hypertension Ischemic cardiomyopathy Mixed hyperlipidemia PAF (paroxysmal atrial fibrillation) Presence of implantable cardioverter-defibrillator (ICD) Presence of stent in coronary artery History of cardiac radiofrequency ablation CKD (chronic kidney disease), stage III Essential hypertension Type 2 diabetes mellitus Dyspnea on exertion Amiodarone toxicity Atherosclerotic heart disease of [place] coronary artery without angina pectoris Chronic systolic (congestive) heart failure Essential hypertension Ischemic cardiomyopathy Mixed hyperlipidemia PAF (paroxysmal atrial fibrillation) Presence of implantable cardioverter-defibrillator (ICD) Presence of stent in coronary artery History of cardiac radiofrequency ablation Chronic systolic (congestive) heart failure Ischemic cardiomyopathy PAF (paroxysmal atrial fibrillation) Presence of implantable cardioverter-defibrillator (ICD) Nicotine dependence, cigarettes, in remission Nocturnal hypoxia CKD (chronic kidney disease), stage III Essential hypertension Type 2 diabetes mellitus Chronic systolic (congestive) heart failure Ischemic cardiomyopathy PAF (paroxysmal atrial fibrillation) Presence of implantable cardioverter-defibrillator (ICD) Sustained VT (ventricular tachycardia) History of cardiac radiofrequency ablation Chronic systolic (congestive) heart failure Ischemic cardiomyopathy PAF (paroxysmal atrial fibrillation) Presence of implantable cardioverter-defibrillator (ICD) Sustained VT (ventricular tachycardia) History of cardiac radiofrequency ablation Dyspnea on exertion Amiodarone toxicity Atherosclerotic heart disease of [place] coronary artery without angina pectoris Chronic systolic (congestive) heart failure Essential hypertension Ischemic cardiomyopathy Mixed hyperlipidemia PAF (paroxysmal atrial fibrillation) Presence of implantable cardioverter-defibrillator (ICD) Presence of stent in coronary artery History of cardiac radiofrequency ablation Chief Complaint UPDATE H&P FOR SVETA ICD genraotr change teaching TYPE 2 DM poisoning by other antidysrhythmic DEVICE CHANGE MOODISPAW NICOTINE DEP 3 M FU 2 wk s/p ICD generator change wound check TYPE 2 DM remote ALERT for VHR 4-8 WK F/U TYPE 2 DM TYPE 2 DM remote ALERT Remote ALERT 3 mos remote ICD f/u Reason for Visit Dyspnea on exertion Amiodarone toxicity Atherosclerotic heart disease of [place] coronary artery without angina pectoris Chronic systolic (congestive) heart failure Essential hypertension Ischemic cardiomyopathy Mixed hyperlipidemia PAF (paroxysmal atrial fibrillation) Presence of implantable cardioverter-defibrillator (ICD) Presence of stent in coronary artery History of cardiac radiofrequency ablation Chronic systolic (congestive) heart failure Ischemic cardiomyopathy PAF (paroxysmal atrial fibrillation) Presence of implantable cardioverter-defibrillator (ICD) Nicotine dependence, cigarettes, in remission Nocturnal hypoxia CKD (chronic kidney disease), stage III Essential hypertension Type 2 diabetes mellitus Chronic systolic (congestive) heart failure Ischemic cardiomyopathy PAF (paroxysmal atrial fibrillation) Presence of implantable cardioverter-defibrillator (ICD) Sustained VT (ventricular tachycardia) History of cardiac radiofrequency ablation Chronic systolic (congestive) heart failure Ischemic cardiomyopathy PAF (paroxysmal atrial fibrillation) Presence of implantable cardioverter-defibrillator (ICD) Sustained VT (ventricular tachycardia) History of cardiac radiofrequency ablation Dyspnea on exertion Amiodarone toxicity Atherosclerotic heart disease of [place] coronary artery without angina pectoris Chronic systolic (congestive) heart failure Essential hypertension Ischemic cardiomyopathy Mixed hyperlipidemia PAF (paroxysmal atrial fibrillation) Presence of implantable cardioverter-defibrillator (ICD) Presence of stent in coronary artery History of cardiac radiofrequency ablation Chronic systolic (congestive) heart failure Ischemic cardiomyopathy PAF (paroxysmal atrial fibrillation) Presence of implantable cardioverter-defibrillator (ICD) Sustained VT (ventricular tachycardia) History of cardiac radiofrequency ablation Chronic systolic (congestive) heart failure Ischemic cardiomyopathy PAF (paroxysmal atrial fibrillation) Presence of implantable cardioverter-defibrillator (ICD) Sustained VT (ventricular tachycardia) History of cardiac radiofrequency ablation Chief Complaint TYPE 2 DM poisoning by other antidysrhythmic DEVICE CHANGE MOODISPAW NICOTINE DEP 3 M FU 2 wk s/p ICD generator change wound check TYPE 2 DM remote ALERT for VHR 4-8 WK F/U TYPE 2 DM TYPE 2 DM remote ALERT Remote ALERT 3 mos remote ICD f/u 3 M FU TYPE 2 DM Reason for Visit Nicotine dependence, cigarettes, in remission Nocturnal hypoxia CKD (chronic kidney disease), stage III Essential hypertension Type 2 diabetes mellitus Chronic systolic (congestive) heart failure Ischemic cardiomyopathy PAF (paroxysmal atrial fibrillation) Presence of implantable cardioverter-defibrillator (ICD) Sustained VT (ventricular tachycardia) History of cardiac radiofrequency ablation Chronic systolic (congestive) heart failure Ischemic cardiomyopathy PAF (paroxysmal atrial fibrillation) Presence of implantable cardioverter-defibrillator (ICD) Sustained VT (ventricular tachycardia) History of cardiac radiofrequency ablation Dyspnea on exertion Amiodarone toxicity Atherosclerotic heart disease of [place] coronary artery without angina pectoris Chronic systolic (congestive) heart failure Essential hypertension Ischemic cardiomyopathy Mixed hyperlipidemia PAF (paroxysmal atrial fibrillation) Presence of implantable cardioverter-defibrillator (ICD) Presence of stent in coronary artery History of cardiac radiofrequency ablation Chronic systolic (congestive) heart failure Ischemic cardiomyopathy PAF (paroxysmal atrial fibrillation) Presence of implantable cardioverter-defibrillator (ICD) Sustained VT (ventricular tachycardia) History of cardiac radiofrequency ablation Chronic systolic (congestive) heart failure Ischemic cardiomyopathy PAF (paroxysmal atrial fibrillation) Presence of implantable cardioverter-defibrillator (ICD) Sustained VT (ventricular tachycardia) History of cardiac radiofrequency ablation Flu vaccine need Essential hypertension Type 2 diabetes mellitus Chief Complaint 3 M FU 2 wk s/p ICD generator change wound check TYPE 2 DM remote ALERT for VHR 4-8 WK F/U TYPE 2 DM TYPE 2 DM remote ALERT Remote ALERT 3 mos remote ICD f/u 3 M FU TYPE 2 DM Reason for Visit CKD (chronic kidney disease), stage III Essential hypertension Type 2 diabetes mellitus Chronic systolic (congestive) heart failure Ischemic cardiomyopathy PAF (paroxysmal atrial fibrillation) Presence of implantable cardioverter-defibrillator (ICD) Sustained VT (ventricular tachycardia) History of cardiac radiofrequency ablation Chronic systolic (congestive) heart failure Ischemic cardiomyopathy PAF (paroxysmal atrial fibrillation) Presence of implantable cardioverter-defibrillator (ICD) Sustained VT (ventricular tachycardia) History of cardiac radiofrequency ablation Dyspnea on exertion Amiodarone toxicity Atherosclerotic heart disease of [place] coronary artery without angina pectoris Chronic systolic (congestive) heart failure Essential hypertension Ischemic cardiomyopathy Mixed hyperlipidemia PAF (paroxysmal atrial fibrillation) Presence of implantable cardioverter-defibrillator (ICD) Presence of stent in coronary artery History of cardiac radiofrequency ablation Chronic systolic (congestive) heart failure Ischemic cardiomyopathy PAF (paroxysmal atrial fibrillation) Presence of implantable cardioverter-defibrillator (ICD) Sustained VT (ventricular tachycardia) History of cardiac radiofrequency ablation Chronic systolic (congestive) heart failure Ischemic cardiomyopathy PAF (paroxysmal atrial fibrillation) Presence of implantable cardioverter-defibrillator (ICD) Sustained VT (ventricular tachycardia) History of cardiac radiofrequency ablation Flu vaccine need Essential hypertension Type 2 diabetes mellitus Chief Complaint TYPE 2 DM TYPE 2 DM remote ALERT Remote ALERT 3 mos remote ICD f/u 3 M FU TYPE 2 DM TYPE 2 DM 6 m fu emote ALERT for NSVT Reason for Visit Chronic systolic (co ngestive) heart failure Ischemic cardiomyopathy PAF (paroxysmal atrial fibrillation) Presence of implantable cardioverter-defibrillator (ICD) Sustained VT (ventricular tachycardia) History of cardiac radiofrequency ablation Chronic systolic (congestive) heart failure Ischemic cardiomyopathy PAF (paroxysmal atrial fibrillation) Presence of implantable cardioverter-defibrillator (ICD) Sustained VT (ventricular tachycardia) History of cardiac radiofrequency ablation Flu vaccine need Essential hypertension Type 2 diabetes mellitus Dyspnea on exertion Amiodarone toxicity Atherosclerotic heart disease of [place] coronary artery without angina pectoris Chronic systolic (congestive) heart failure Essential hypertension Ischemic cardiomyopathy Mixed hyperlipidemia PAF (paroxysmal atrial fibrillation) Presence of implantable cardioverter-defibrillator (ICD) Presence of stent in coronary artery History of cardiac radiofrequency ablation Chronic systolic (congestive) heart failure PAF (paroxysmal atrial fibrillation) Presence of implantable cardioverter-defibrillator (ICD) Sustained VT (ventricular tachycardia) History of cardiac radiofrequency ablation Chief Complaint TYPE 2 DM remote ALERT Remote ALERT 3 mos remote ICD f/u 3 M FU TYPE 2 DM TYPE 2 DM 6 m fu emote ALERT for NSVT TYPE 2 DM Reason for Visit Chronic systolic (co ngestive) heart failure Ischemic cardiomyopathy PAF (paroxysmal atrial fibrillation) Presence of implantable cardioverter-defibrillator (ICD) Sustained VT (ventricular tachycardia) History of cardiac radiofrequency ablation Chronic systolic (congestive) heart failure Ischemic cardiomyopathy PAF (paroxysmal atrial fibrillation) Presence of implantable cardioverter-defibrillator (ICD) Sustained VT (ventricular tachycardia) History of cardiac radiofrequency ablation Flu vaccine need Essential hypertension Type 2 diabetes mellitus Dyspnea on exertion Amiodarone toxicity Atherosclerotic heart disease of [place] coronary artery without angina pectoris Chronic systolic (congestive) heart failure Essential hypertension Ischemic cardiomyopathy Mixed hyperlipidemia PAF (paroxysmal atrial fibrillation) Presence of implantable cardioverter-defibrillator (ICD) Presence of stent in coronary artery History of cardiac radiofrequency ablation Chronic systolic (congestive) heart failure PAF (paroxysmal atrial fibrillation) Presence of implantable cardioverter-defibrillator (ICD) Sustained VT (ventricular tachycardia) History of cardiac radiofrequency ablation Chief Complaint 3 mos remote ICD f/u 3 M FU TYPE 2 DM TYPE 2 DM 6 m fu emote ALERT for NSVT TYPE 2 DM 3 mos remote ICD f/u Peripheral vascular disease/PT WILL BE LATE 15MIN 3 m f/u- recheck GFR Reason for Visit Chronic systolic (co ngestive) heart failure Ischemic cardiomyopathy PAF (paroxysmal atrial fibrillation) Presence of implantable cardioverter-defibrillator (ICD) Sustained VT (ventricular tachycardia) History of cardiac radiofrequency ablation Flu vaccine need Essential hypertension Type 2 diabetes mellitus Dyspnea on exertion Amiodarone toxicity Atherosclerotic heart disease of [place] coronary artery without angina pectoris Chronic systolic (congestive) heart failure Essential hypertension Ischemic cardiomyopathy Mixed hyperlipidemia PAF (paroxysmal atrial fibrillation) Presence of implantable cardioverter-defibrillator (ICD) Presence of stent in coronary artery History of cardiac radiofrequency ablation Chronic systolic (congestive) heart failure PAF (paroxysmal atrial fibrillation) Presence of implantable cardioverter-defibrillator (ICD) Sustained VT (ventricular tachycardia) History of cardiac radiofrequency ablation PAF (paroxysmal atrial fibrillation) Presence of implantable cardioverter-defibrillator (ICD) Sustained VT (ventricular tachycardia) History of cardiac radiofrequency ablation CKD (chronic kidney disease), stage III Heart failure with reduced ejection fraction Type 2 diabetes mellitus Chief Complaint 3 mos remote ICD f/u Peripheral vascular disease/PT WILL BE LATE 15MIN 3 m f/u- recheck GFR 4-5 MO F/U ZACARIAS Reason for Visit PAF (paroxysmal atri al fibrillation) Presence of implantable cardioverter-defibrillator (ICD) Sustained VT (ventricular tachycardia) History of cardiac radiofrequency ablation CKD (chronic kidney disease), stage III Heart failure with reduced ejection fraction Type 2 diabetes mellitus Dyspnea on exertion Amiodarone toxicity Chronic systolic (congestive) heart failure Essential hypertension Ischemic cardiomyopathy Mixed hyperlipidemia PAF (paroxysmal atrial fibrillation) Presence of implantable cardioverter-defibrillator (ICD) Presence of stent in coronary artery History of cardiac radiofrequency ablation Chief Complaint SMOKER 3 M FU 1 Y FU- CT comp 07/15/22 1 Y FU Reason for Visit CKD (chronic kidney disease), stage III Essential hypertension Type 2 diabetes mellitus Smoking greater than 40 pack years Nocturnal hypoxia Amiodarone toxicity Essential hypertension Ischemic cardiomyopathy Mixed hyperlipidemia PAF (paroxysmal atrial fibrillation) Presence of implantable cardioverter-defibrillator (ICD) Presence of stent in coronary artery History of cardiac radiofrequency ablation Chief Complaint SMOKER 3 M FU 1 Y FU- CT comp 07/15/22 1 Y FU 3 M FU LABSPEC Reason for Visit CKD (chronic kidney disease), stage III Essential hypertension Type 2 diabetes mellitus Smoking greater than 40 pack years Nocturnal hypoxia Amiodarone toxicity Essential hypertension Ischemic cardiomyopathy Mixed hyperlipidemia PAF (paroxysmal atrial fibrillation) Presence of implantable cardioverter-defibrillator (ICD) Presence of stent in coronary artery History of cardiac radiofrequency ablation Back pain CKD (chronic kidney disease), stage III Essential hypertension Type 2 diabetes mellitus Chief Complaint Pacer Check Remote 3 M FU/FLU SHOT Pacer Check Remote Pacer Check Remote 3 m fu Reason for Visit Flu vaccine need Back pain Essential hypertension Mixed hyperlipidemia Type 2 diabetes mellitus CKD (chronic kidney disease), stage III Essential hypertension Hypersomnolence IVON (obstructive sleep apnea) Type 2 diabetes mellitus Chief Complaint Admit Date 3 M FU January 27, 2024 2:33pm INT LABS February 01, 2024 12:06pm Pacer Check Remote February 17, 2024 2: 00am Pacer Check Remote April 20, 2024 3:0 0am 3 M FU April 28, 2024 2:1 0pm Reason for Visit Admit Date Viral syndrome January 27, 2024 2:33pm BPH (benign prostatic hyperplasia) Decem 2023 2:33pm CKD (chronic kidney disease), stage III January 27, 2024 2:33pm Essential hypertension January 26 2:33pm Type 2 diabetes mellitus January 27, 2024 2:33pm CKD (chronic kidney disease), stage III April 28, 2024 2:10pm Essential hypertension April 28, 2024 2:10pm Odynophagia April 28, 2024 2:1 0pm Type 2 diabetes mellitus April 28 2:10pm Chief Complaint Admit Date Pacer Check Remote February 17, 2024 2: 00am Pacer Check Remote April 20, 2024 3:0 0am 3 M FU April 28, 2024 2:1 0pm Pacer Check Remote May 18, 2024 2:00 am chest pain June 04, 2024 1:3 4am Reason for Visit Admit Date CKD (chronic kidney disease), stage III April 28, 2024 2:10pm Essential hypertension April 28, 2024 2:10pm Odynophagia April 28, 2024 2:1 0pm Type 2 diabetes mellitus April 28 2:10pm Chief Complaint Admit Date Pacer Check Remote April 20, 2024 3:0 0am 3 M FU April 28, 2024 2:1 0pm Pacer Check Remote May 18, 2024 2:00 am chest pain June 04, 2024 1:3 4am 6 M FU June 06, 2024 12: 42pm 1-2 M FU July 06, 2024 3:13p m Reason for Visit Admit Date CKD (chronic kidney disease), stage III April 28, 2024 2:10pm Essential hypertension April 28, 2024 2:10pm Odynophagia April 28, 2024 2:1 0pm Type 2 diabetes mellitus April 28 2:10pm Amiodarone toxicity June 06, 2024 12: 42pm Essential hypertension June 06, 2024 12:42pm Ischemic cardiomyopathy June 06, 2024 12:42pm Mixed hyperlipidemia June 06, 2024 12 :42pm PAF (paroxysmal atrial fibrillation) May 12:42pm Presence of implantable cardioverter-def ibrillator (ICD) June 06, 2024 12:42pm Presence of stent in coronary artery May 12:42pm History of cardiac radiofrequency ablati on June 06, 2024 12:42pm Amiodarone toxicity July 06, 2024 3:13p m Essential hypertension July 06, 2024 3: 13pm Ischemic cardiomyopathy July 06, 2024 3 :13pm Mixed hyperlipidemia July 06, 2024 3:13 pm PAF (paroxysmal atrial fibrillation) July 06, 2024 3:13pm Presence of implantable cardioverter-def ibrillator (ICD) July 06, 2024 3:13pm Presence of stent in coronary artery July 06, 2024 3:13pm History of cardiac radiofrequency ablati on July 06, 2024 3:13pm Additional Source Comments (unrecognized sect ion and content) No Status Records FoundNo Status Records FoundNo Status Records FoundNo Status Records FoundNo Status Records Found INFORMATION SOURCE (unrecogn ized section and content) DATE CREATED AUTHOR 08/04/2017 [facility] DATE CREATED AUTHOR AUTHOR'S ORGANIZ ATION 02/15/2018 [facility] DATE CREATED AUTHOR AUTHOR'S ORGANIZ ATION 12/11/2018 [facility] DATE CREATED AUTHOR AUTHOR'S ORGANIZ ATION 08/06/2021 [facility] DATE CREATED AUTHOR AUTHOR'S ORGANIZ ATION 07/22/2024 [facility] Source Comments (unrecognize d section and content) In the event this informatio n is protected by the Federal Confidentiality of Alcohol and Drug Abuse Patient Records regulations: The Federal rules restrict any use of the information to criminally investigate or prosecute any alcohol or drug abuse patient.[facility] the event this information is protected by the Federal Confidentiality of Alcohol and Drug Abuse Patient Records regulations: The Federal rules restrict any use of the information to criminally investigate or prosecute any alcohol or drug abuse patient.[facility] the event this information is protected by the Federal Confidentiality of Alcohol and Drug Abuse Patient Records regulations: The Federal rules restrict any use of the information to criminally investigate or prosecute any alcohol or drug abuse patient.[facility] the event this information is protected by the Federal Confidentiality of Alcohol and Drug Abuse Patient Records regulations: The Federal rules restrict any use of the information to criminally investigate or prosecute any alcohol or drug abuse patient.[facility] the event this information is protected by the Federal Confidentiality of Alcohol and Drug Abuse Patient Records regulations: The Federal rules restrict any use of the information to criminally investigate or prosecute any alcohol or drug abuse patient.[facility] the event this information is protected by the Federal Confidentiality of Alcohol and Drug Abuse Patient Records regulations: The Federal rules restrict any use of the information to criminally investigate or prosecute any alcohol or drug abuse patient.[facility] the event this information is protected by the Federal Confidentiality of Alcohol and Drug Abuse Patient Records regulations: The Federal rules restrict any use of the information to criminally investigate or prosecute any alcohol or drug abuse patient.[facility] Care Teams (unrecognized sec tion and content) Event Marketing Coordinator Relationship Specialty Start Date End Date Nidia Geiger MD [address] [place], [place] [id number] PCP - General 07/11/05 05/05/21 Kirk Johnston (Hist) [address], [place] [address] Building Construction Supervisor Cardiology 07/29/16 Sowmya Dennison MD [address] [facility] [address] [place] [phone] Cardiology 05/01/17 Mark Ricks MD [address] [id number] Building Construction Supervisor Pulmonary and Critical Care Medicine 07/15/17 Denis Jorge [address] [facility] [address] [place] [phone] Physician Cardiology 03/09/18 Beak Cunningham, costumed characterSemiconductor Package Symbol [facility] 10/11/20 Event Marketing Coordinator Relationship Specialty Start Date End Date Kirk Johnston (Hist) [address], [place] [id number] Building Construction Supervisor Cardiology 07/29/16 Sowmya Dennison MD [address] [place] [address] [place] [address] Cardiology 05/01/17 Mark Ricks MD [address] [address] Building Construction Supervisor Pulmonary and Critical Care Medicine 07/15/17 Denis Jorge [address] [place] [address] [place] [address] Physician Cardiology 03/09/18 Event Marketing Coordinator Relationship Specialty Start Date End Date Kirk Johnston (Hist) [address] [place] [address] Building Construction Supervisor Cardiology 07/29/16 Sowmya Dennison MD [address] [place] [address] [place] [phone] Cardiology 05/01/17 Mark Ricks MD [address] [address] Building Construction Supervisor Pulmonary and Critical Care Medicine 07/15/17 Denis Jorge [address] [place] [place] [address] Physician Cardiology 03/09/18 Event Marketing Coordinator Relationship Specialty Start Date End Date Kirk Johnston (Hist) [address] [place] [address] Building Construction Supervisor Cardiology 07/29/16 Sowmya Dennison MD [address] [place] [address] [place] [address] Cardiology 05/01/17 Mark Ricks MD [address] [address] Building Construction Supervisor Pulmonary and Critical Care Medicine 07/15/17 Denis Jorge [address] [place] [place] [phone] Physician Cardiology 03/09/18 Event Marketing Coordinator Relationship Specialty Start Date End Date Kirk Johnston (Hist) [address] [facility] [place], [place] [id number] Building Construction Supervisor Cardiology 07/29/16 Sowmya Dennison MD [address] [place] [address] [place] [phone] Cardiology 05/01/17 Mark Ricks MD [address] [id number] Building Construction Supervisor Pulmonary and Critical Care Medicine 07/15/17 Denis Jorge [address] [place] [id number] Physician Cardiology 03/09/18 Team Status: Active Member Role Status Dates Dr. Nidia Geiger MD Family Provider Active Dr. Luis Hay MD Primary Care Provider Active Team Status: Inactive Member Role Status Dates Dr. Luis Hay MD Primary Care Provider, Refer ring Provider Active Moira Colon Attending Provider Active Team Status: Inactive Member Role Status Dates Dr. Luis Hay MD Primary Care Adalid fairchild, Attending Provider, Referring Provider Active Team Status: Inactive Member Role Status Dates Dr. Luis Hay MD Primary Care Provider, Refer ring Provider Active Oksana Guillermo NP, FERRIS WHEEL OPERATOR-C Attending Provider Active Team Status: Active Member Role Status Dates Dr. Luis Hay MD Primary Care Provider, Atten ding Provider Active Team Status: Active Member Role Status Dates Dr. Luis Hay MD Primary Care Provider Active Dr. Denis Jorge MD Attending Provider Active Team Status: Inactive Member Role Status Dates Dr. Luis Hay MD Primary Care Provider Active Dr. Evan Sepulveda DPM Attending Provider, Referring Provider Active Team Status: Active Member Role Status Dates Dr. Luis Hay MD Primary Care Provider Active Oksana Guillermo FERRIS WHEEL OPERATOR, FERRIS WHEEL OPERATOR-C Attending Provider, Referring P rovider Active Team Status: Inactive Member Role Status Dates Dr. Luis Hay MD Primary Care Provider Active Oksana Guillermo FERRIS WHEEL OPERATOR, FERRIS WHEEL OPERATOR-C Attending Provider, Referring P rovider Active Team Status: Inactive Member Role Status Dates Dr. Luis Hay MD Primary Care Provider, Refer ring Provider Active Joseph Fonseca FERRIS WHEEL OPERATOR, FERRIS WHEEL OPERATOR-C Attending Provider Active Team Status: Inactive Member Role Status Dates Dr. Luis Hay MD Primary Care Provider, Refer ring Provider Active Martha Harvey FERRIS WHEEL OPERATOR, FERRIS WHEEL OPERATOR-C Attending Provider Active Team Status: Inactive Member Role Status Dates Dr. Luis Hay MD Primary Care Provider Active Martha Harvey FERRIS WHEEL OPERATOR, FERRIS WHEEL OPERATOR-C Attending Provider, Referrin g Provider Active Team Status: Inactive Member Role Status Dates Dr. Luis Hay MD Primary Care Provider, Atten ding Provider Active Team Status: Inactive Member Role Status Dates Dr. Luis Hay MD Primary Care Provider Active Dr. Barry Odom MD Attending Provider, Referring Pro vider Active Team Status: Inactive Member Role Status Dates Dr. Luis Hay MD Primary Care Provider Active Dr. Barry Odom MD Attending Provider Active Event Marketing Coordinator Relationship Specialty Start Date End Date Nidia Geiger MD [address] [place] [address] PCP - General 07/11/05 05/05/21 Kirk Johnston [address] [place] [address] Building Construction Supervisor Cardiology 07/29/16 Sowmya Dennison MD [address] [id number] Cardiology 05/01/17 Mark Ricks MD [address] [address] Building Construction Supervisor Pulmonary and Critical Care Medicine 07/15/17 Denis Jorge MD [address] [address] Physician Cardiology 03/09/18 Team Status: Active Member Role Status Dates Dr. Luis Hay MD Primary Care Provider Active Start: January 08, 2024 Dr. Luis Hay MD Attending Provider Active Start: January 08, 2024 Team Status: Active Member Role Status Dates Dr. Luis Hay MD Primary Care Provider Active Start: January 25, 2024 Dr. Luis Hay MD Attending Provider Active Start: January 25, 2024 Team Status: Inactive Member Role Status Dates Dr. Luis Hay MD Primary Care Provider Active Start: January 27, 2024 End: January 27, 2024 Dr. Luis Hay MD Attending Provider Active Start: January 27, 2024 End: January 27, 2024 Dr. Luis Hay MD Referring Provider Active Start: January 27, 2024 End: January 27, 2024 Team Status: Inactive Member Role Status Dates Dr. Luis Hay MD Primary Care Provider Active Start: February 01, 2024 End: February 01, 2024 Dr. Luis Hay MD Attending Provider Active Start: February 01, 2024 End: February 01, 2024 Dr. Luis Hay MD Referring Provider Active Start: February 01, 2024 End: February 01, 2024 Team Status: Active Member Role Status Dates Dr. Luis Hay MD Primary Care Provider Active Start: February 05, 2024 Dr. Luis Hay MD Attending Provider Active Start: February 05, 2024 Team Status: Inactive Member Role Status Dates Dr. Luis Hay MD Primary Care Provider Active Start: February 17, 2024 End: February 17, 2024 Dr. Barry Odom MD Attending Provider Active S tart: February 17, 2024 End: February 17, 2024 Dr. Barry Odom MD Referring Provider Active S tart: February 17, 2024 End: February 17, 2024 Team Status: Inactive Member Role Status Dates Dr. Luis Hay MD Primary Care Provider Active Start: February 17, 2024 End: February 17, 2024 Dr. Luis Hay MD Attending Provider Active Start: February 17, 2024 End: February 17, 2024 Dr. Luis Hay MD Referring Provider Active Start: February 17, 2024 End: February 17, 2024 Team Status: Active Member Role Status Dates Dr. Luis Hay MD Primary Care Provider Active Start: March 11, 2024 Dr. Luis Hay MD Attending Provider Active Start: March 11, 2024 Team Status: Active Member Role Status Dates Dr. Luis Hay MD Primary Care Provider Active Start: March 20, 2024 Dr. Luis Hay MD Attending Provider Active Start: March 20, 2024 Team Status: Inactive Member Role Status Dates Dr. Luis Hay MD Primary Care Provider Active Start: March 31, 2024 End: March 31, 2024 Dr. Tony Campos MD Attending Provider Active Start: March 31, 2024 End: March 31, 2024 Dr. Tony Campos MD Referring Provider Active Start: March 31, 2024 End: March 31, 2024 Team Status: Active Member Role Status Dates Dr. Luis Hay MD Primary Care Provider Active Start: April 08, 2024 Dr. Luis Hay MD Attending Provider Active Start: April 08, 2024 Team Status: Inactive Member Role Status Dates Dr. Luis Hay MD Primary Care Provider Active Start: April 20, 2024 End: April 20, 2024 Dr. Barry Odom MD Attending Provider Active S tart: April 20, 2024 End: April 20, 2024 Dr. Barry Odom MD Referring Provider Active S tart: April 20, 2024 End: April 20, 2024 Team Status: Inactive Member Role Status Dates Dr. Luis Hay MD Primary Care Provider Active Start: April 28, 2024 End: April 28, 2024 Dr. Luis Hay MD Attending Provider Active Start: April 28, 2024 End: April 28, 2024 Dr. Luis Hay MD Referring Provider Active Start: April 28, 2024 End: April 28, 2024 Team Status: Active Member Role Status Dates Dr. Luis Hay MD Primary Care Provider Active Start: April 29, 2024 Dr. Luis Hay MD Attending Provider Active Start: April 29, 2024 Team Status: Active Member Role Status Dates Dr. Luis Hay MD Primary Care Provider Active Team Status: Active Member Role Status Dates Dr. Luis Hay MD Primary Care Provider Active Start: May 13, 2024 Dr. Luis Hay MD Attending Provider Active Start: May 13, 2024 Team Status: Inactive Member Role Status Dates Dr. Luis Hay MD Primary Care Provider Active Start: May 18, 2024 End: May 18, 2024 Dr. Barry Odom MD Attending Provider Active S tart: May 18, 2024 End: May 18, 2024 Team Status: Active Member Role Status Dates Dr. Luis Hay MD Primary Care Provider Active Start: May 27, 2024 Dr. Luis Hay MD Attending Provider Active Start: May 27, 2024 Team Status: Inactive Member Role Status Dates Dr. Luis Hay MD Primary Care Provider Active Start: June 04, 2024 End: June 04, 2024 Dr. Jeb Cuellar MD Emergency Provider Active Start: June 04, 2024 End: June 04, 2024 Team Status: Inactive Member Role Status Dates Dr. Luis Hay MD Primary Care Provider Active Start: June 04, 2024 End: June 04, 2024 Dr. Jeb Cuellar MD Attending Provider Active Start: June 04, 2024 End: June 04, 2024 Dr. Jeb Cuellar MD Emergency Provider Active Start: June 04, 2024 End: June 04, 2024 Team Status: Inactive Member Role Status Dates Dr. Luis Hay MD Primary Care Provider Active Start: June 06, 2024 End: June 06, 2024 Dr. Luis Hay MD Referring Provider Active Start: June 06, 2024 End: June 06, 2024 Joseph Fonseca FERRIS WHEEL OPERATOR, FERRIS WHEEL OPERATOR-C Attending Provider Active S tart: June 06, 2024 End: June 06, 2024 Team Status: Active Member Role Status Dates Dr. Luis Hay MD Primary Care Provider Active Start: June 24, 2024 Dr. Luis Hay MD Attending Provider Active Start: June 24, 2024 Team Status: Inactive Member Role Status Dates Dr. Luis Hay MD Primary Care Provider Active Start: July 06, 2024 End: July 06, 2024 Dr. Luis Hay MD Referring Provider Active Start: July 06, 2024 End: July 06, 2024 Joseph Fonseca NP, FERRIS WHEEL OPERATOR-C Attending Provider Active S tart: July 06, 2024 End: July 06, 2024 Goals (unrecognized section and content) Goals may be documented in a n alternate sectionGoals may be documented in an alternate sectionGoals may be documented in an alternate sectionGoals may be documented in an alternate sectionGoals may be documented in an alternate sectionGoals may be documented in an alternate sectionGoals may be documented in an alternate sectionGoals may be documented in an alternate sectionGoals may be documented in an alternate sectionGoals may be documented in an alternate sectionGoals may be documented in an alternate sectionGoals may be documented in an alternate sectionGoals may be documented in an alternate sectionGoals may be documented in an alternate sectionGoals may be documented in an alternate sectionGoals may be documented in an alternate sectionGoals may be documented in an alternate sectionGoals may be documented in an alternate sectionGoals may be documented in an alternate sectionGoals may be documented in an alternate sectionGoals may be documented in an alternate sectionGoals may be documented in an alternate section Reason for Visit (unrecogniz ed section and content) Reason Onset Date Comments Community Monitoring Outreach 05/30/2021 M Outreach Reason Comments Refill Request Patient Update FOR RECORDS PERTAINING TO PATIENTS WHO ARE OR HAVE BEEN ENROLLED IN A CHEMICAL DEPENDENCY/SUBSTANCEABUSE PROGRAM, SOME INFORMATION MAY BE OMITTED. This clinical summary was aggregated from multiple sources. Caution should be exercised in using it in the provision of clinical care. This summary normalizes information from multiple sources, and as a consequence, information in this document may materially change the coding, format and clinical context of patient data. In addition, data may be omitted in some cases. CLINICAL DECISIONS SHOULD BE BASED ON THE PRIMARY CLINICAL RECORDS. [facility] [employer] [facility]. provides no warranty or guarantee of the accuracy or completeness of information in this document.
[2024-07-22 20:27] VITALS: BP 112/72; PULSE 80; RESP 18; O2SAT 94
[2024-07-22 21:00] VITALS: BP 103/68; PULSE 79; RESP 20; O2SAT 95
[2024-07-22 21:21] LABS: Anion Gap 14 (5-15); BUN 12 mg/dL (4-19); BUN/Creat Ratio 9.5 RATIO (10-20); Chloride 104 mmol/L (98-108); Creatinine, Serum 1.28 mg/dL (0.70-1.20); EST Glomerular Filtration Rate 58 (>60); Glucose 139 mg/dL (70-99); Magnesium 1.4 mg/dL (1.5-2.2); Potassium 4.3 mmol/L (3.3-5.1); Sodium Level 141 mmol/L (133-145); Troponin T High Sensitivity 13 ng/L (<=22)
[2024-07-22 21:59] LABS: Troponin T High Sens 2 HR 14 ng/L (<=22)
[2024-07-22 22:00] VITALS: BP 103/58; PULSE 62; RESP 20; O2SAT 93
[2024-07-22 22:45] VITALS: BP 94/69; PULSE 63; RESP 18; TEMP 36.8; O2SAT 94
== END 2024-07-22 22:49 | disposition home or self-care (01) ==
PROVIDERS: Emergency Provider Emergency Medicine; PCP Internal Medicine; Visit Provider Emergency Medicine
DX: I48.0 Paroxysmal atrial fibrillation (principal); E11.22 Type 2 diabetes mellitus with diabetic chronic kidney disease; I25.10 Atherosclerotic heart disease of native coronary artery without angina pectoris; I25.5 Ischemic cardiomyopathy; Z87.891 Personal history of nicotine dependence; E78.2 Mixed hyperlipidemia; G47.33 Obstructive sleep apnea (adult) (pediatric); I12.9 Hypertensive chronic kidney disease with stage 1 through stage 4 chronic kidney disease, or unspecified chronic kidney disease; Z86.73 Personal history of transient ischemic attack (TIA), and cerebral infarction without residual deficits; Z90.49 Acquired absence of other specified parts of digestive tract; Z95.810 Presence of automatic (implantable) cardiac defibrillator; Z95.5 Presence of coronary angioplasty implant and graft; M54.9 Dorsalgia, unspecified
CPT/HCPCS: 71045; 80048; 83735; 84484; 85025; 85610; 85730; 93005; 99285; A4216

== ENCOUNTER → 2024-08-18 | Outpatient (CLI) | payer MEDICARE, SELFPAY ==
[2024-08-18 19:16] LABS: Anion Gap 15 (5-15); BUN 11 mg/dL (4-19); BUN/Creat Ratio 7.2 RATIO (10-20); Calcium,Total 9.3 mg/dL (7.6-11.0); Carbon Dioxide 21.3 mmol/L (21.0-32.0); Chloride 103 mmol/L (98-108); Glucose 134 mg/dL (70-99); Magnesium 1.3 mg/dL (1.5-2.2); Potassium 4.8 mmol/L (3.3-5.1)
== END | disposition home or self-care (01) ==
LOC: BIMLAB 15:49
PROVIDERS: PCP Internal Medicine; Visit Provider Internal Medicine
DX: K52.9 Noninfective gastroenteritis and colitis, unspecified (principal); E11.69 Type 2 diabetes mellitus with other specified complication
CPT/HCPCS: 36415; 80048; 83735

== ENCOUNTER 2024-09-23 05:52 | Day surgery (SDC) | payer MEDICARE, SELFPAY ==
--- NOTE | 2024-09-21 12:32 | PAT.ANESEVAL ---
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 When Was Last Pacemaker Check QUESTION #4 FULL TEXT: You/Your Family Experience fever (hyperthermia) with Anesthesia Last Oral Intake Last Oral intake: Last Oral Intake NPO since Meds taken in AM with sips of water? Meds patient instructed to take am of surgery PONV PONV - block splitter operator: PONV - block splitter operator Female No 09/21/24 11:39 HX of Motion Sickness No 09/21/24 11:39 HX of N/V After Surgery No 09/21/24 11:39 Non-Smoker Yes 09/21/24 11:39 Duration of Surgery greater No 09/21/24 11:39 than 60 minutes Number of Risk Factors 1 09/21/24 11:39 PONV Score Low Risk 09/21/24 11:39 Height & Weight Height & Weight: Anesthesia: Height & Weight Height 5 ft 9 in 08/18/24 15:05 Respiratory Assessment Respiratory Assessment - block splitter operator: Respiratory Tract Infection Hx - block splitter operator Hx Respiratory Tract Infection No 09/21/24 11:39 STOP Sleep Apnea STOP Sleep Apnea - block splitter operator: STOP Sleep Apnea - block splitter operator Hx Hypertension Yes: CONTROLLED WITH MEDS 09/21/24 11:39 Hx Sleep Apnea No 09/21/24 11:39 CPAP No 09/28/23 18:24 BIPAP No 09/28/23 18:24 Do you snore loudly (louder Yes 09/21/24 11:39 than talking or can be heard Do you often feel tired/ Yes 09/21/24 11:39 fatigued/ sleepy during daytime? Has anyone observed you stop No 09/21/24 11:39 breathing during sleep? STOP Results Positive 09/21/24 11:39 QUESTION #5 FULL TEXT : Do you snore loudly (louder than talking or can be heard through closed doors)? Tobacco Use History Tobacco Use History - block splitter operator: Tobacco Use History - block splitter operator Tobacco Use Non-smoker 06/18/20 22:46 Smoking Status Former smoker 09/21/24 11:39 Hx Tobacco Use No 09/21/24 11:39 Years Smoking Packs Smoked per Day Smoking Cessation Date was Yes - quit smoking within 15 09/21/24 11:39 within the last 15 years years Hx Smoking Cessation Date 02/21/16 09/21/24 11:39 Hx Smoking Cessation No 09/21/24 11:39 Counseling Hematologic Medial History Hematologic Hx - block splitter operator: Hematologic Medical Hx - clinical documentation specialist Hx of Blood Transfusion No 09/21/24 11:39 Hx of Transfusion in last 3 No 09/21/24 11:39 Months Date of Last Transfusion (if within last 3 months) Ever experience any problems No 09/21/24 11:39 with transfusion(s)? Specify any problems Hx of Preganancy in last 3 N/A 09/21/24 11:39 Months Nurse Filling Out Transfusion DSCHRIBER 09/21/24 11:39 & Questions: Date: 09/21/24 09/21/24 11:39 Time: 11:41 09/21/24 11:39 Patient unable to answer at this time (ie. confused, unrespo /Reproduction History /Reproductive History - block splitter operator: /Reproductive Hx- block splitter operator Hx Now No 09/21/24 11:39 Gestational Age (in weeks): EDC: Hx Hx Para Hx Section SAB No 09/21/24 11:39 PFSH Medical History (Updated 09/21/24 @ 11:55 by Lena Tamayo) Loss of hearing Wears glasses Wears dentures Anxiety Walker as ambulation aid Ambulates with cane Arthritis Prostate disease History of renal disease Back pain Restless legs Fall Injury of back Injury of head and neck Syncope History of ulceration Difficulty swallowing Gastric reflux Former smoker On home oxygen therapy Shortness of breath on exertion History of pain when walking History of edema History of stress test History of CHF (congestive heart failure) History of heart attack History of echocardiogram Cardiology follow-up encounter Chest pain Odynophagia Type 2 diabetes mellitus BPH (benign prostatic hyperplasia) Atrial fibrillation Presence of stent in coronary artery (~02/21/13) CVA (cerebral vascular accident) Ischemic cardiomyopathy Atherosclerotic heart disease of bois forte coronary artery without angina pectoris Essential hypertension Home Medications ?Medication ?Instructions ?Recorded ?Last Taken ?Type blood sugar diagnostic (FreeStyle #100 ea 05/06/21 Unknown Rx Lite Strips) blood-glucose meter (FreeStyle #1 ea 05/06/21 Unknown Rx Lite Meter kit) blood glucose control, low (True #1 ea 08/11/22 Unknown Rx Metrix Level 1 solution) lancing device (TRUEdraw Lancing #1 ea 08/11/22 Unknown Rx Device) Handicap Placard #1 ea 07/20/23 Unknown Rx lancets 28 gauge (FreeStyle #200 ea 10/05/23 Unknown Rx Lancets) lancets 33 gauge (TRUEplus Lancets) #300 ea 10/05/23 Unknown Rx blood sugar diagnostic (True #300 ea 11/18/23 Unknown Rx Metrix Glucose Test Strip) warfarin 7.5 mg tablet 7.5 mg PO MOTUWETHFR blood thinner 01/27/24 Unknown History sacubitril 49 mg-valsartan 51 mg 1 tab PO BID heart #180 tabs 04/04/24 Unknown Rx tablet (Entresto) atorvastatin 40 mg tablet 40 mg PO QHS cholesterol #90 tabs 05/16/24 Unknown Rx pantoprazole 40 mg tablet,delayed 40 mg PO BID reflux #180 tabs 07/18/24 Unknown Rx release tamsulosin 0.4 mg capsule 0.4 mg PO QHS 07/22/24 Unknown History aspirin 81 mg tablet 81 mg PO QDAY 08/04/24 Unknown History metformin 500 mg tablet,extended 1,000 mg (2 x 500 mg) PO BID 3 08/18/24 Unknown Rx release 24 hr (Glucophage XR) months #360 tabs loperamide 2 mg capsule (Imodium 2 mg PO Q6H PRN loose stool #90 08/22/24 Unknown Rx A-D) caps trazodone 50 mg tablet 50 mg PO QHS sleep #90 tabs 08/25/24 Unknown Rx glimepiride 4 mg tablet 4 mg PO QDAY diabetes #90 tabs 09/12/24 Unknown Rx spironolactone 25 mg tablet 25 mg PO QDAY blood pressure #90 09/12/24 Unknown Rx tabs Lactobacillus acidophilus 250 500 mmu cells PO DAILY 09/21/24 Unknown History million cell capsule (Probiotic Acidophilus) magnesium 200 mg tablet 200 mg PO BID 09/21/24 Unknown History warfarin 7.5 mg tablet 3.75 mg PO SUSA 09/21/24 Unknown History Allergy/AdvReac Type Severity Reaction Status Date / Time gemfibrozil Allergy Intermediate upset Verified 09/21/24 11:34 stomach; constipation amiodarone AdvReac 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 esomeprazole magnesium (From AdvReac Diarrhea Verified 09/21/24 11:34 Nexium) Family History Mother CVA (cerebral vascular accident) Hypertension Grandfather Heart disease Father Cancer testicular Thyroid cancer Sister Cancer Breast Lung cancer Surgical History (Updated 09/21/24 @ 11:55 by Lena Tamayo) History of cardiac catheterization Hx of tonsillectomy Hx of left cataract extraction Hx of right cataract extraction History of esophagogastroduodenoscopy (EGD) Hx of colonoscopy History of cholecystectomy Presence of coronary angioplasty implant and graft (~02/21/13) History of cardiac radiofrequency ablation Presence of implantable cardioverter-defibrillator (ICD) (~06/21/13) Social History household members: spouse housing: house number of children: 3 current occupational status: retired current occupational exposures/hazards: No Smoking Status: Former smoker Tobacco: How many years used: 61 Electronic Cigarette Use: not used second hand exposure: Yes alcohol intake: never substance use type: does not use Audit: Pertinent Findings Pertinent Findings EKG Perinent findings: EKG 07/22/2024. Sinus rhythm with occasional PVC Stress test pertinent findings: Stress test 06/19/2020. Rest and stress myocardial nuclear imaging demonstrate myocardial perfusion changes appearing compatible with combination of shifting soft tissue attenuation/artifact being more prominent at rest as opposed to stress as well as myocardial perfusion changes compatible with previous myocardial injury involving portions inferior lateral and apical segments with no myocardial perfusion changes consider diagnostic for associated stress induced myocardial ischemia. The gated Cardiolite study reports an LVEF of 25% Consult pertinent findings: Cardiology visit 07/06/2024. History of underlying CAD, NE, PCI with drug-eluting stent to mid LAD on 02/21/2013, ischemic mediated cardiomyopathy, with an estimated ejection fraction of 15% based on the last echocardiogram on April 2022. He has a history of chronic systolic CHF, A-fib, ICD placement on 06/21/2013, superimposed upon a history of CVA. History of ablation in January 2016 and May 2016. He will continue lifestyle modification to the best of his ability given his physical limitations. Additional pertinent findings: Pacemaker report 08/17/2024. There were 0 VT/VF episodes were urgent and therapy. Health trends are stable. Recommendation Anesthesia Recommendation Anesthesia recommendation: OPTIMIZED for anesthesia
[2024-09-23] VITALS (8 sets, daily range): BP systolic 96–112; BP diastolic 58–76; PULSE 60–66; RESP 16; TEMP 36.1–36.6; O2SAT 93–100; BMI 33.6
--- OUTSIDE RECORDS SUMMARY | 2024-09-23 05:58 | XMS RPT_ITS | CCD ---
Author Organization [facility] Care Team Providers Care Senior Information Security Consultant Name Role Phone RALFTJ CONNER Unavailable Unavailable [...] Unavailable AHMED, SHAMEEM M Unavailable Unavailable TALAMPAS, NIDIA Unavailable Unavailable VITEBSKIY, [...] Dr. Nidia Geiger Primary Care Provider Dr. Niida Geiger Attending Provider Moira Colon Attending Provider Unavailable Dr. Luis Hay Referring Provider [phone] [facility] CLIMBING GUIDE, CLIMBING GUIDE-Espinoza Dowell Attending Provider Dr. August Wong Attending [...] Satnam, Dr. Smith Referring Provider [phone] Marian CLIMBING GUIDE, CLIMBING GUIDEJordy Dowell Attending Provider [phone] Moira Colon Attending Provider Unavailable Satnam, Dr. Smith Primary Care Provider [phone] Satnam, Dr. Smith Attending Provider [phone] Satnam, Dr. Smith Referring Provider [phone] Dr. Luis Hay Primary Care Provider [phone] Satnam, Dr. Smith Attending Provider [phone] Dr. Denis Jorge Attending Provider [phone]) Dr. Denis Jorge Referring Provider [phone]) Satnam, Dr. Smith Referring Provider [phone] Eagle ESTEVES, CLIMBING GUIDE-Espinoza Gandhi Attending Provider Dr. Luis Hay Primary Care Provider [phone] Dr. Luis Hay Attending Provider [phone] Dr. Denis Jorge Attending Provider [phone]) Dr. Denis Jorge Referring Provider [phone]) Satnam, Dr. Smith Referring Provider [phone] Moira Colon Attending Provider Unavailable Eagle ESTEVES, CLIMBING GUIDE-C Oksana Attending Provider Satnam, Dr. Smith Primary [...] [phone] Moira Colon Attending Provider Unavailable Eagle CLIMBING GUIDE, CLIMBING GUIDE-C Oksana Attending Provider Dr. Denis Jorge Attending Provider [phone]) Dr. Luis Hay Primary Care Provider [phone] 0) Satnam, Dr. Smith Attending Provider [phone] Dr. Luis Hay Referring Provider [phone] Candice CLIMBING GUIDE, CLIMBING GUIDE-C Martha Attending Provider [facility] CLIMBING GUIDE, CLIMBING GUIDE-C Joseph Dowell Attending Provider [phone] Dr. Luis Hay Primary Care Provider [phone] Dr. Barry Odom Attending Provider [phone] Barry Odom Referring Provider [phone] Luis Hay Attending Provider [phone] Dr. Luis Hay Referring Provider [phone] Matty TRAVIS, Nidia Mcdowell Primary Care Provider Kirk Johnston Unavailable Jesi TRAVIS, Sowmya العلي Unavailable Mark Ricks MD Unavailable Denis Jorge MD Unavailable [phone] Satnam TRAVIS, Dr. Smith Primary Care Provider Satnam TRAVIS, Dr. Smith Attending Provider [phone] Satnam TRAVIS, Dr. Smith Referring Provider [phone] Lei TRAVIS, Dr. Reddy Attending Provider [phone] Lei TRAVIS, Dr. Reddy Referring Provider [phone] Andres TRAVIS, Dr. Tony Rosas Attending Provider [phone] Andres TRAVIS, Dr. Tony Rosas Referring Provider Satnam TRAVIS, Dr. Smith Primary Care Provider Satnam TRAVIS, Dr. Smith Attending Provider [phone] Satnam TRAVIS, Dr. Smith Referring Provider [phone] Alisa TRAVIS, Dr. Russ Emergency Provider Satnam TRAVIS, Dr. Smith Primary Care Provider Satnam TRAVIS, Dr. Smith Attending Provider [phone] Lei TRAVIS, Dr. Reddy Attending Provider [phone] Lei TRAVIS, Dr. Reddy Referring Provider [phone] Satnam TRAVIS, Dr. Smith Referring Provider [phone] Alisa TRAVIS, Dr. Russ [facility] [phone] Satnam TRAVIS, Dr. Smith Primary Care Provider Andres TRAVIS, Dr. Tony Rosas Attending Provider Andres TRAVIS, Dr. Tony Rosas Referring Provider Satnam TRAVIS, Dr. Smith Attending Provider [phone] Lei TRAVIS, Dr. Reddy Attending Provider [phone] Lei TRAVIS, Dr. Reddy Referring Provider [phone] Satnam TRAVIS, Dr. Smith Referring Provider [phone] Alisa TRAVIS, Dr. Russ Attending Provider Alisa TRAVIS, Dr. Russ Emergency Provider Marian CLIMBING GUIDE-CJoseph Attending Provider Maye TRAVIS, Dr. Brooks Attending Provider Maye TRAVIS, Dr. Brooks Referring Provider Dr. Thee Pettit DO Emergency Provider Satnam TRAVIS, Dr. Smith Primary Care Provider Dr. Thee Pettit DO Attending Provider Ck CLIMBING GUIDE-CMarie Attending Provider Satnam TRAVIS, Dr. Smith Primary Care Provider Satnam TRAVIS, Dr. Smith Attending Provider Satnam TRAVIS, Dr. Smith Primary Care Provider Lei TRAVIS, Dr. Reddy Attending Provider Oleghe, Efewongbe Attending Unavailable Oleghe, Efewongbe Primary Care Unavailable Oleghe, Efewongbe Primary Care Unavailable Oleghe, Efewongbe Referring Unavailable Oleghe, Efewongbe Attending Unavailable Oleghe, Efewongbe Primary Care Unavailable Franki Schmidt Attending Unavailable Oleghe, Efewongbe Referring Unavailable Oleghe, Efewongbe Primary Care Unavailable Oleghe, Efewongbe Attending Unavailable Jeb Cuellar Attending Unavailable Oleghe, Efewongbe Primary Care Unavailable Oleghe, Efewongbe Primary Care Unavailable Andres Rohit Referring Unavailable AndresTony Attending Unavailable Oleghe, Efewongbe Primary Care Unavailable Светлана, Ho Attending Unavailable Oleghe, Efewongbe Referring Unavailable Terri Osborn Attending Unavailable Oleghe, Efewongbe Primary Care Unavailable Andres, Rohit Consulting Unavailable Matty, William Admitting Unavailable Matty, William Consulting Unavailable Oleghe, Efewongbe Primary Care Unavailable Thee Pettit Attending Unavailable Oleghe, Efewongbe Primary Care Unavailable Oleghe, Efewongbe Referring Unavailable Oleghe, Efewongbe Attending Unavailable Oleghe, Efewongbe Primary Care Unavailable Lei, Barry Referring Unavailable Lei, Barry Attending Unavailable Oleghe, Efewongbe Primary Care Unavailable Marie Stover Attending Unavailable Oleghe, Efewongbe Referring Unavailable Oleghe, Efewongbe Primary Care Unavailable Lei, Barry Referring Unavailable Lei, Barry Attending Unavailable Oleghe, Efewongbe Attending Unavailable Oleghe, [...] Primary Care Unavailable Oleghe, Efewongbe Attending Unavailable Alexam, Terri Kristina Attending Unavailable Oleghe, Efewongbe Primary Care Unavailable Tony Campos Consulting Unavailable Matty, William Admitting Unavailable Matty, William Consulting Unavailable Alexam, Terri Kristina Consulting Unavailable Matty, William Attending Unavailable Oleghe, Efewongbe Primary Care Unavailable [...] Unavailable Oleghe, Efewongbe Primary Care Unavailable Lei, Atkinson Attending Unavailable Oleghe, Efewongbe Primary Care Unavailable Lei, Atkinson Referring Unavailable Lei, Atkinson Attending Unavailable Oleghe, Efewongbe Primary Care Unavailable Prasanna Pulido Attending Unavailable Oleghe, Efewongbe Referring Unavailable Oleghe, Efewongbe Attending Unavailable Oleghe, Efewongbe Primary Care Unavailable Oleghe, Efewongbe Referring Unavailable Oleghe, Efewongbe Primary Care Unavailable Oleghe, Efewongbe Referring Unavailable Oleghe, Efewongbe Attending Unavailable Lei, Atkinson Referring Unavailable Lei, Atkinson Attending Unavailable Oleghe, Efewongbe Primary Care Unavailable Roof CLIMBING GUIDE, Joseph Dowell Attending Unavailable Oleghe, Efewongbe Referring Unavailable Oleghe, Efewongbe Primary Care Unavailable Oleghe, Efewongbe Primary Care Unavailable Oleghe, Efewongbe Referring Unavailable Oleghe, Efewongbe Attending Unavailable Oleghe, Efewongbe Attending Unavailable Oleghe, Efewongbe Primary Care Unavailable Oleghe, Efewongbe Attending Unavailable Oleghe, Efewongbe Primary Care Unavailable Oleghe, Efewongbe Primary Care Unavailable Todd Villavicencio Attending Unavailable Todd Villavicencio Referring Unavailable Oleghe, Efewongbe Primary Care Unavailable Oleghe, Efewongbe Attending Unavailable Allergies Allergy Classification Reported Allergen(s) Allergy Type Date of Onset Reaction(s) Facility (20 sources) esomeprazole; Translations: [ESOMEPRAZOLE MAGNESIUM] Drug Allergy 7 GI Upset [facility] Other [place] Repository (20 sources) gemfibrozil; Translations: [GEMFIBROZIL] Drug Allergy 0 Intolerance [facility] Repository (20 sources) Amiodarone Drug Allergy 9 Other: See Comments [facility] Work Phone: (6 sources) clam allergenic extract Drug Allergy 1 Other: See Comments [facility] (1 source) Amiodarone Drug Allergy 5 [facility] Repository Medications Current Medications Medication Drug Class(es) Dates Sig (Normalized) Sig (Original) Blood Glucose Control, Low (True Metrix Level 1) solution (20 sources) Start: 08-11-2022 Blood Glucose Control, Low (True Metrix Level 1) solution Active 0 .ROUTE .COMPLEX August 11, 2022 4:53pm USE DIRECTED WITH [...] Discontinued 0 .MEDSUPPLY 1 May 01, 2021 2:27pm May 06, 2021 [...] coumadin teaching. Eval for PT. Dx; cardiomyopathy, [place], arrhythmia, CAD, anticoagulation. 1 Each 06/05/2016 Active Start: 06-05-2016 COMPOUNDED PRE SCRIPTION HH S/P ablation for VT. Pt requires INR, assessment and eval VS, coumadin and HF teaching. Dx: Cardiomyopathy, [place], ventricular arrhythmia, CAD, anticoagulation. 1 Each 06/05/2016 Active Start: 06-05-2016 COMPOUNDED PRE SCRIPTION Home health S/P ablation for INR checks, assessment and eval of VS, HF and coumadin teaching. Eval for PT. Dx; cardiomyopathy, [place], arrhythmia, CAD, anticoagulation. 1 Each 0 06/05/2016 Active Start: 06-05-2016 COMPOUNDED PRE SCRIPTION HH S/P ablation for VT. Pt requires INR, assessment and eval VS, coumadin and HF teaching. Dx: Cardiomyopathy, [place], ventricular arrhythmia, CAD, anticoagulation. 1 Each 0 06/05/2016 Active Comment on above: Home health S/P abla tion for INR checks, assessment and eval of VS, HF and coumadin teaching. Eval for PT. Dx; cardiomyopathy, [place], arrhythmia, CAD, anticoagulation. HH S/P ablation for VT. Pt requires INR, assessment and eval VS, coumadin and HF teaching. Dx: Cardiomyopathy, [place], ventricular arrhythmia, CAD, anticoagulation. Oxygen 2-3 L by nasa l cannula. Diagnosis hypoxia, systolic heart failure. Pulse oximetry at rest: Pulse oximetry with ambulation: Pulse oximetry with oxygen and ambulation: Handicap Placard (3 sources) Start: 024 Handicap Placard Active 0 .ROUTE .MEDSUPPLY July 20, 2023 12:00am As directed, length of time 3 years Lactobacillus Combination No.8 (Adult Probiotic) 3 billion cell capsule (20 sources) Start: take 3 capsules by mouth once daily [...] cing Device) misc Discontinued 0 .Route June 05, 2022 11:30am June 06, 2022 12:53pm use three times daily to monitor blood glucose Start: 02-05-2022 End: 06-05-2022 Lancing Device (Truedraw Khanh cing Device) misc Discontinued 0 .Route February 05, 2022 10:08am June 05, 2022 11:30am use three times daily to monitor blood glucose Start: 02-05-2022 Lancing Device (Truedraw Lancing Device) misc Active 0 .Route February 05, 2022 10:08am use three times [...] three times daily to monitor blood glucose loperamide hydrochloride 2 m g oral capsule (20 sources) Opioid Agonist Start: 08-22-2024 Start: 05-06-2021 End: 04-09-2022 Start: 05-06-2021 End: 04-09-2022 Loperamide 2 mg capsule Disc ontinued 2 mg PO .COMPLEX as needed for [...] each loose stool Start: 04-30-2021 End: 05-06-2021 Start: 01-23-2020 take 1 tablet by becky th once daily as needed loperamide HCl (IMODIUM A-D) 2 mg tab Indications: Diarrhea, unspecified type , Generalized abdominal pain Take 1 tablet by mouth as needed. for 3 or more BMs per day 30 tablet 3 01/23/2020 Active Start: 03-09-2018 End: 09-02-2019 Comment on above: Take 1 tablet by becky th as needed. for 3 or more BMs per day Magnesium (9 sources) Start: 12-10-2023 take 1 tablet by mouth every week Magnesium 200 mg tablet Active 200 mg PO EVERY WEEK December 10, 2023 1:05pm Start: 04-24-2022 End: 12-10-2023 Magnesium 200 mg tablet Disc ontinued 200 mg PO .April 24, 2022 12:00am December 10, 2023 1:07pm Start: 04-24-2022 Magnesium Acti ve 200 MG PO .April 24, 2022 12:00am 24 hr metFORMIN hydrochlorid e 500 mg extended release oral tablet (20 sources) Biguanide Start: 08-18-2024 Start: 07-28-2022 End: 08-18-2024 Start: 06-05-2021 End: 04-24-2022 Start: 05-01-2021 End: 06-05-2021 Start: 12-18-2020 metFORMIN (GLU COPHAGE) 500 mg tablet Indications: Controlled type 2 diabetes mellitus with stage 3 chronic kidney disease, without long-term current use of insulin (HCC) Take 1 tablet by mouth daily with breakfast. 90 tablet 3 12/18/2020 Active Comment on above: Take 1 tablet by becky th daily with breakfast. potassium chloride 10 meq extended release oral tablet (20 sources) Start: 10-21-2023 take 2 capsules by mouth twice daily Potassium Chloride 10 mEq capsule, extended release Active 20 meq PO TWICE A DAY 360 October 21, 2023 12:51pm Start: 12-20-2020 End: 11-10-2022 Potassium Chloride Discontin ued 0 .ROUTE .COMPLEX 360 October 28, 2021 4:52pm November 10, 2022 1:09pm TAKE 2 CAPSULES (20 MEQ) TWICE DAILY Start: 03-15-2020 End: 10-21-2023 Start: 2020 End: 03-15-2020 Start: 2020 End: 03-15-2020 take 20 mEq by mouth twice daily Potassium Chloride Discontinued 20 MEQ PO TWICE A DAY 360 2020 1:00am March 15, 2020 2:07pm Start: 04-21-2019 End: 10-21-2023 Potassium Chloride 10 mEq ca psule, extended release Discontinued 0 .ROUTE .COMPLEX 360 November 10, 2022 1:09pm October 21, 2023 12:52pm TAKE 2 CAPSULES TWICE DAILY Start: 08-22-2017 End: 2020 Start: 08-22-2017 End: 2020 take 2 tablets by mouth [...] Comment on above: Take [address] [facility] twice daily. tamsulosin hydrochloride 0.4 mg oral capsule (15 sources) alpha-Adrenergic Margaret Start: 07-22-2024 Start: 09-30-2023 End: 04-28-2024 (20 sources) Start: 08-04-2024 Start: 12-10-2023 End: 08-01-2024 Start: 12-10-2023 Start: 11-18-2023 Start: 10-21-2023 End: 08-01-2024 Start: 10-21-2023 Start: 10-05-2023 Start: 10-05-2023 Start: 07-20-2023 Start: 11-17-2022 End: 11-18-2023 Start: 10-27-2022 End: 10-05-2023 Start: 09-10-2022 End: 11-17-2022 Start: 09-10-2022 End: 09-10-2022 Start: 08-11-2022 End: 10-27-2022 Start: 08-11-2022 End: 11-27-2022 Start: 08-11-2022 Start: 08-11-2022 Start: 08-01-2022 End: 08-11-2022 Start: 06-12-2022 End: 08-11-2022 Start: 06-06-2022 End: 08-11-2022 Start: 06-06-2022 End: 08-11-2022 Start: 06-06-2022 End: 09-10-2022 Start: 06-06-2022 End: 06-12-2022 Start: 06-06-2022 End: 06-06-2022 Start: 06-05-2022 End: 06-06-2022 Start: 06-05-2022 End: 06-06-2022 Start: 06-05-2022 End: 06-06-2022 Start: 04-24-2022 End: 12-10-2023 Start: 04-21-2022 End: 06-05-2022 Start: 02-05-2022 End: 06-05-2022 Start: 02-05-2022 End: 06-05-2022 Start: 02-05-2022 End: 04-21-2022 Start: 02-05-2022 End: 02-05-2022 Start: 05-06-2021 Start: 05-06-2021 End: 10-05-2023 Start: 05-06-2021 Start: 05-01-2021 End: 05-06-2021 Start: 05-01-2021 End: 05-06-2021 Start: 05-01-2021 End: 05-06-2021 Start: 09-02-2019 End: 08-01-2024 Start: 09-02-2019 Start: 08-23-2017 End: 03-09-2018 Completed/Discontinued Medications Medication Drug Class(es) Dates Sig (Normalized) Sig (Original) acetaminophen 500 mg oral tablet (20 sources) Start: 08-22-2017 End: 08-01-2024 Start: 08-22-2017 Acetaminophen 500 MG tablet Active [...] by becky th once daily. As needed acetaminophen 325 mg / oxyCO DONE hydrochloride 5 mg oral tablet (20 sources) Opioid Agonist Start: 10-08-2020 End: 04-30-2021 Start: 10-08-2020 End: 04-30-2021 Oxycodone-Acetaminophen (Per cocet) 5-325 mg tablet Discontinued 1 {tbl} PO EVERY 6 HOURS 12 October 08, 2020 April 30, 2021 10:14am Alcohol Swabs (Dropsafe Alcohol Prep Pads) pads, medicated (12 sources) Start: 08-11-2022 End: 11-27-2022 Alcohol Swabs (Dropsafe Alco hol [...] THREE TIMES DAILY amoxicillin 500 mg oral tabl et (9 sources) Penicillin-class Antibacterial Start: 01-04-2024 End: 01-27-2024 amoxicillin 875 mg / clavula marianne 125 mg oral tablet (9 sources) Penicillin-class Antibacterial Start: 06-17-2023 End: 07-20-2023 Start: 06-17-2023 End: 07-20-2023 Amoxicillin-Pot Clavulanate 875-125 mg tablet Discontinued 1 {tbl} PO TWICE A DAY June 17, 2023 12:00am July 20, 2023 1:49pm aspirin 81 mg delayed release oral tablet (20 sources) Platelet Aggregation Inhibitor, Nonsteroidal Anti-inflammatory Drug Start: 12-10-2023 End: 08-01-2024 Start: 08-22-2017 End: 09-30-2023 Start: 08-22-2017 End: 09-30-2023 take 1 tablet [...] 1 tablet by becky th once daily. atorvastatin 40 mg oral tabl et (20 sources) HMG-CoA Reductase Inhibitor Start: 05-15-2016 End: 05-16-2024 Comment on above: Take 1 tablet by becky once daily. atropine sulfate 0.025 mg / diphenoxylate hydrochloride 2.5 mg oral tablet (2 sources) Anticholinergic, Cholinergic Muscarinic Antagonist, Antidiarrheal Start: 08-18-2024 End: 08-22-2024 cefdinir 300 mg oral capsule (9 sources) Cephalosporin Antibacterial Start: 09-30-2023 End: 10-07-2023 cyclobenzaprine hydrochlorid e 10 mg oral tablet (20 sources) Muscle Relaxant Start: 01-05-2023 End: 08-01-2024 Start: 10-07-2020 End: 10-29-2022 Start: 10-07-2020 End: 03-10-2022 take 1 tablet by mouth three times daily as needed for muscle spasms Cyclobenzaprine 10 mg tablet Discontinued 10 mg PO THREE TIMES A DAY as needed for Muscle Spasm March 10, 2022 3:02pm March 10, 2022 5:05pm Start: 12-13-2018 End: 09-02-2019 Start: 10-25-2018 End: 10-29-2020 take 1 tablet by mouth twice daily as needed for muscle spasms Cyclobenzaprine 10 mg tablet Discontinued 10 mg PO TWICE A DAY as needed for muscle spasm December 13, 2018 1:00am September 02, 2019 2:13pm Comment on above: Take 1 tablet by becky th three times daily as needed for muscle spasm. doxycycline hyclate 100 mg o ral tablet (20 sources) Tetracycline-class Drug Start: 10-07-2020 End: 04-30-2021 empagliflozin 25 mg oral tab let (12 sources) Sodium-Glucose Cotransporter 2 Inhibitor Start: 04-24-2022 End: 07-28-2022 famotidine 20 mg oral tablet (20 sources) Histamine-2 Receptor Antagonist Start: 08-06-2020 End: 08-01-2024 Start: 07-11-2020 End: 05-23-2021 Start: 07-11-2020 End: 04-30-2021 take 1 tablet by mouth once daily Famotidine (Pepcid) 40 mg tablet Discontinued 40 mg PO DAILY July 11, 2020 12:00am April 30, 2021 10:16am Comment on above: Take 1 tablet by becky at bedtime as needed. finasteride 5 mg oral tablet (18 sources) 5-alpha Reductase Inhibitor Start: 10-07-2023 End: 08-01-2024 fluticasone propionate 0.05 mg/actuat metered dose nasal spray (20 sources) Corticosteroid Start: 08-22-2017 End: 03-09-2018 Start: 08-22-2017 End: 03-09-2018 Fluticasone Propionate 1 SPR AY spray,suspension Discontinued 1 NMA NASAL DAILY August 22, 2017 12:00am March 09, 2018 3:27pm Start: 08-22-2017 End: 03-09-2018 Fluticasone Propionate Disco ntinued 1 SPRAY NASAL DAILY August 22, 2017 12:00am March 09, 2018 3:27pm furosemide 20 mg oral tablet (20 sources) Loop Diuretic Start: 10-05-2023 End: 08-01-2024 Start: 10-05-2023 End: 06-04-2024 take 1 tablet by mouth once daily Furosemide 20 mg tablet Discontinued 20 mg PO DAILY October 05, 2023 9:20am June 04, 2024 1:43am Start: 04-15-2022 End: 10-05-2023 Start: 10-08-2020 End: 11-21-2021 Start: 2020 End: 04-18-2020 Furosemide 40 mg tablet Disc ontinued 60 mg PO DAILY 135 March 15, 2020 1:00am April 18, 2020 3:04pm Start: 2020 End: 04-18-2020 take 60 mg by mouth once daily Furosemide Discontinued 60 MG PO DAILY 135 March 15, 2020 1:00am April 18, 2020 3:04pm Start: 04-21-2019 take 1.5 tablets by mouth twice daily furosemide (LASIX) 40 mg tablet Indications: Essential hypertension Take 1.5 tablets by mouth twice daily. 04/21/2019 Active Start: 08-22-2017 End: 10-05-2023 Start: 08-22-2017 End: 10-05-2023 Start: 08-22-2017 End: 10-05-2023 Start: 08-22-2017 End: 10-05-2023 Start: 08-22-2017 End: 10-05-2023 Start: 08-22-2017 End: 10-05-2023 Furosemide 40 mg tablet Disc ontinued 20 mg PO DAILY August 07, 2022 4:06pm October 05, 2023 9:17am Comment on above: Take 1.5 tablets by mouth twice daily. glimepiride 4 mg oral tablet (20 sources) Sulfonylurea Start: 05-01-2021 End: 08-01-2024 Start: 05-01-2021 End: 05-22-2023 Start: 05-01-2021 End: 06-24-2022 Glimepiride 4 mg tablet Disc ontinued 6 mg PO EVERY MORNING 135 90 June 09, 2022 10:50am June 24, 2022 8:49am Take 4 mg in the morning and 2 mg at night. hydrocortisone 25 mg/ml topi jozef cream (17 sources) Corticosteroid Start: 06-04-2024 End: 08-01-2024 Start: 07-20-2023 End: 12-10-2023 Start: 07-20-2023 End: 12-10-2023 Hydrocortisone 2.5 % cream w ith perineal applicator Discontinued 1 NMA RC 1 to 2 times per day as needed for hemorrhoids July 20, 2023 12:00am December 10, 2023 1:05pm isopropyl alcohol 0.7 ml/ml medicated pad (20 sources) Start: 11-27-2022 End: 08-01-2024 Start: 06-06-2022 End: 08-01-2022 Start: 06-06-2022 End: 08-01-2022 Alcohol Swabs (Alcohol Pads) pads, medicated Discontinued 100 NMA TOPICAL THREE TIMES A DAY June 12, 2022 2:38pm August 01, 2022 11:07am Start: 06-06-2022 End: 08-01-2022 Alcohol Swabs (Alcohol Pads) pads, medicated Discontinued 100 PAD TOPICAL THREE TIMES A DAY June 12, 2022 2:38pm August 01, 2022 11:07am Lactobac no.41/Bifidobact no.7 (PROBIOTIC-10 ORAL) (6 sources) Lactobac no.41/B ifidobact no.7 (PROBIOTIC-10 ORAL) Take by mouth. 0 Active Comment on above: Take by mouth. magnesium oxide 400 mg oral tablet (20 sources) Start: 03-22-2015 End: 04-09-2022 Start: 03-22-2015 End: 05-15-2016 take 1 tablet by mouth once daily Magnesium Oxide 400 MG tablet Discontinued 400 mg PO DAILY March 22, 2015 1:00am May 15, 2016 7:17pm Comment on above: 1 tablet twice weekl y 24 hr metoprolol succinate 5 0 mg extended release oral tablet (20 sources) beta-Adrenergic Margaret Start: 08-20-2022 End: 08-01-2024 Start: 08-20-2022 End: 07-06-2024 Start: 10-21-2021 End: 08-20-2022 Start: 06-14-2021 End: 10-21-2021 Start: 04-30-2021 End: 06-14-2021 Metoprolol Succinate 25 [...] and 25mg in PM Start: 08-22-2020 End: 06-14-2021 Start: 08-22-2020 End: 04-30-2021 take 50 mg [...] and 25mg in PM Start: 07-28-2019 End: 04-30-2021 Start: 07-28-2019 End: 10-21-2021 Start: 08-22-2017 End: 07-28-2019 Comment on above: Take 1 tablet by becky th once daily. [facility]. [facility]fur[facility] 25 mg / nitrofurantoin, monohydrate 75 mg oral capsule (20 sources) Nitrofuran Antibacterial Start: 07-03-2021 End: 07-10-2021 nitroglycerin 0.4 mg subling ual tablet (20 sources) Nitrate Vasodilator Start: 06-08-2024 End: 08-01-2024 Start: 06-08-2024 Nitroglycerin 0.4 mg tablet, sublingual Active 0.4 mg SL every 5 to 15 minutes as needed for chest pain June 08, 2024 12:00am do not exceed 3 doses per episode Start: 07-11-2020 End: 08-22-2020 Start: 07-11-2020 End: 08-22-2020 Nitroglycerin 0.4 mg [...] do not exceed 3 doses per episode ondansetron 4 mg oral tablet (20 sources) Serotonin-3 Receptor Antagonist Start: 04-30-2021 End: 10-29-2022 Start: 04-30-2021 End: 05-06-2021 take 1 tablet [...] 01/23/2020 12/18/2020 Discontinued Start: 02-12-2018 End: 09-02-2019 pantoprazole 40 mg delayed r elease oral tablet (20 sources) Proton Pump Inhibitor Start: 10-16-2021 End: 07-18-2024 Start: 06-22-2021 take 1 tablet by becky [...] release (DR/EC) Discontinued 40 mg PO DAILY 90 March 15, 2020 1:00am April 18, 2020 3:04pm Start: 06-11-2013 End: 10-16-2021 Comment on above: Take 1 tablet by becky th twice daily. psyllium 520 mg oral capsule (20 sources) Start: 09-02-2019 End: 04-18-2020 Start: 08-23-2017 End: 03-09-2018 Metamucil Discontinued PO [...] (20 sources) Angiotensin 2 Receptor Margaret Start: 06-18-2020 End: 04-04-2024 Start: 05-15-2016 End: 03-15-2020 Start: 05-15-2016 End: 04-04-2024 Sacubitril-Valsartan (Entres to) 49-51 mg tablet Discontinued 1 {tbl} PO TWICE A DAY 180 March 18, 2024 2:11pm April 04, 2024 2:27pm Start: 05-15-2016 End: 2020 take 1 tablet by mouth twice daily Sacubitril-Valsartan Discontinued 1 TABLET PO TWICE A DAY February 13, 2020 2:34pm 2020 12:26pm Comment on above: Take 1 tablet by becky th twice daily. (Moodispaw) spironolactone 25 mg oral ta blet (20 sources) Aldosterone Antagonist Start: 04-18-2020 End: 06-06-2024 Start: 08-23-2017 End: 2020 Start: 08-23-2017 End: 06-06-2024 take 1 tablet by mouth twice daily Spironolactone 25 mg tablet Discontinued 25 mg PO TWICE A DAY November 30, 2023 3:03pm June 06, 2024 2:01pm Comment on above: Take 1 tablet by becky th twice daily. (Moodispaw) thioctic acid 600 mg oral ca psule (20 sources) Start: 04-20-2018 End: 10-26-2020 traZODone hydrochloride 50 m g oral tablet (20 sources) Serotonin Reuptake Inhibitor Start: 11-08-2019 End: 10-21-2023 Comment on above: Take 1 tablet by becky th daily at bedtime. warfarin sodium 7.5 mg oral tablet (20 sources) Vitamin K Antagonist Start: 03-09-2018 End: 01-27-2024 Start: 03-09-2018 End: 01-27-2024 Start: 02-17-2018 End: 07-20-2023 Warfarin 7.5 mg tablet Disco ntinued 0 mg .ROUTE .COMPLEX April 06, 2023 9:00am July 20, 2023 1:50pm TAKE 1 TABLET EVERY DAY Please contact the information source for Protocol details. Start: 08-22-2017 End: 04-24-2022 Comment on above: Take 1 tablet by [...] fibrillation] Onset: 6 Resolved: 1 07-10-2015 Chronic Cardiac dysrhythmias (1 source) Palpitations; Translations: [Palpitations] Onset: 5 Episodic Cataract (4 sources) Cataract; Translations: [Unspecified cataract] 08-18-2024 Chronic Chronic kidney disease (20 sources) Chronic kidney disease stage 3; Translations: [Stage 3 chronic kidney disease] Chronic Chronic obstructive pulmonary disease and bronchiectasis (9 sources) Bronchitis; Translations: [Bronchitis, not specified as [...] Coronary atherosclerosis; Translations: [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] Onset: 5 07-24-2015 Chronic Diabetes mellitus with complications (20 sources) Type [...] sources) Dehydration; Translations: [Dehydration] 08-23-2017 Episodic Hemorrhoids (9 sources) Hemorrhoids; Translations: [Unspecified hemorrhoids] 07-20-2023 Episodic Hyperplasia of prostate (20 sources) Benign prostatic hyperplasia; Translations: [Benign prostatic hyperplasia without lower urinary tract symptoms] Onset: 5 Chronic Nausea and vomiting (20 sources) Nausea; Translations: [Nausea and vomiting] Onset: 7 Resolved: 1 08-23-2017 Episodic Noninfectious gastroenteritis (20 sources) Chronic diarrhea; Translations: [Noninfective gastroenteritis and colitis, unspecified] Onset: 5 Episodic Other aftercare (20 sources) Long-term current use of anticoagulant; Translations: [long-term (current) use of anticoagulants] Onset: 6 10-23-2015 Episodic Other ear and sense organ disorders (9 sources) Hearing difficulty; Translations: [Unspecified hearing loss, unspecified ear] 10-21-2023 Chronic Other gastrointestinal disorders (18 sources) Swallowing painful; Translations: [Dysphagia, unspecified] 04-28-2024 Episodic Other gastrointestinal disorders (9 sources) Diarrhea; Translations: [Diarrhea, unspecified] 10-08-2023 Episodic Other gastrointestinal disorders (8 sources) Dysphagia; Translations: [Dysphagia, unspecified] 08-04-2024 Episodic Other gastrointestinal disorders (1 source) Dysphagia, unspecified; Translations: [Dysphagia, unspecified] Onset: 5 Episodic Other liver diseases (7 [...] non-obstructive alveolar hypoventilation] Chronic Residual codes; unclassified (10 sources) Obstructive sleep apnea syndrome; Translations: [Obstructive sleep apnea (adult) (pediatric)] 04-16-2023 Chronic Residual codes; unclassified (10 sources) Hypersomnia; Translations: [Hypersomnia, unspecified] 04-16-2023 Chronic [...] 05/26 Dr. Sidney morales Residual codes; unclassified (4 sources) Insomnia; Translations: [Insomnia, unspecified] 08-18-2024 Episodic Spondylosis; intervertebral disc disorders; other back problems (6 sources) Degeneration of thoracolumbar intervertebral disc; Translations: [Other intervertebral disc degeneration, thoracolumbar region] Onset: 1 06-27-2020 Chronic Spondylosis; intervertebral disc disorders; other back problems (20 sources) Low back pain; Translations: [Lumbago] Onset: 6 10-15-2005 Episodic Substance-related disorders (20 sources) Tobacco smoking behavior - finding; Translations: [Nicotine dependence, unspecified, uncomplicated] Chronic Comment on above: 100 pack year histor y, quit 2015 Unclassified (1 source) Unknown / UNK(Unknown) Onset: 8 Unclassified (1 source) Nodule of lung; Translations: [Lung nodule < 6cm on CT] Onset: 8 05-01-2017 Unclassified (1 source) Cough, unspecified; Translations: [Cough, unspecified] Onset: Viral infection (10 sources) Viral disease; Translations: [Viral infection, unspecified] [...] cholecystitis without obstruction] Onset: 05-01-2017 05-01-2017 Episodic Coronary atherosclerosis and other heart disease (20 sources) 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; Translations: [Presence of coronary angioplasty implant and graft] Onset: 02-09-2013 04-30-2015 Episodic Comment on above: PCI/BROOKE of the mid L AD 02/21/13 Genitourinary symptoms and ill-defined conditions (10 sources) Ramu hematuria; Translations: [Gross hematuria] Onset: 09-30-2023 10-08-2023 Episodic Immunizations and screening for infectious disease (20 sources) Needs influenza immunization; Translations: [Encounter for immunization] Onset: 10-21-2023 Episodic Neoplasms of unspecified nature or uncertain behavior (1 source) Neoplasm of brain; 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] Onset: 02-26-2009 Resolved: 12-14-2020 12-14-2020 Chronic Nonspecific chest pain (20 sources) Chest pain; Translations: [Chest pain, unspecified] Onset: 06-08-2024 04-09-2022 Episodic Other aftercare (1 source) Long-term current use [...] conditions (not mental disorders or infectious disease) (9 sources) Deviation of international normalized ratio from target range; Translations: [Abnormal coagulation profile] Onset: 04-11-2024 06-04-2024 Episodic Residual codes; unclassified (20 sources) Other specified postprocedural states; Translations: [Personal history of surgery to heart and great vessels, presenting hazards to health] Onset: 06-06-2024 Episodic Urinary tract infections (11 sources) Acute urinary tract infection; Translations: [Urinary tract infection, site not specified] Onset: 09-30-2023 10-08-2023 Episodic Results Test Name Value Interpretation Reference Range Facility MR/PAT.ANEon 09-21-2024 MR/PAT.ANE Normal [facility] Anion gap in Serum or Plasma Ordered By: Luis Hay on 08-18-2024 Anion gap [Moles/Vol] 15 mmol/L - [facility] BUN/creatinine ratioOrdered By: Luis Hay on 08-18-2024 Urea nitrogen/Creatinine [Mass ratio] 7.2 mg/mg Low - [facility] Basic Metabolic Profile (BMP )on 08-18-2024 BUN/CRE 7.2 RATIO Low 11-28 [facility] Comment on above: Performed By: #### L 500.2500, L501.5200 ####[facility] [address] [place], [address] Calcium [Mass/Vol] 9.3 mg/dL Normal 7.6-11.0 [facility] Comment on above: Performed By: #### L 500.2500, L501.5200 ####[facility] [address] [place], [address] Chloride [Moles/Vol] 103 mmol/L Normal 98-108 [facility] Comment on above: Performed By: #### L 500.2500, L501.5200 ####[facility] [address] [place], [address] CO2 [Moles/Vol] 21.3 mmol/L Normal 21.0-32.0 [facility] Comment on above: Performed By: #### L 500.2500, L501.5200 ####[facility] [address] [place], [address] Creatinine [Mass/Vol] 1.47 mg/dL High 0.70-1.20 [facility] Comment on above: Performed By: #### L 500.2500, L501.5200 ####[facility] [address] [place], [address] GAP 15 Normal 5-15 [facility] Comment on above: Performed By: #### L 500.2500, L501.5200 ####[facility] [address] [place], [address] GFR/1.73 sq M.predicted among non-blacks MDRD (S/P/Bld) [Vol rate/Area] 49 mL/min/{1.73_m2} Low >60 [facility] Comment on above: Result Comment: mL/m in/1.73m2 CKD-EPI Creatinine Equation (2020) Performed By: #### L 500.2500, L501.5200 ####[facility] [address] [place], [address] Glucose [Mass/Vol] 134 mg/dL High 70-99 [facility] Comment on above: Performed By: #### L 500.2500, L501.5200 ####[facility] [address] [place], [address] Potassium [Moles/Vol] 4.8 mmol/L Normal 3.3-5.1 [facility] Comment on above: Performed By: #### L 500.2500, L501.5200 ####[facility] [address] [place], [address] Sodium [Moles/Vol] 139 mmol/L Normal 133-145 [facility] Comment on above: Performed By: #### L 500.2500, L501.5200 ####[facility] [address] [place], [address] Urea nitrogen [Mass/Vol] 11 mg/dL Normal 4-19 [facility] Comment on above: Performed By: #### L 500.2500, L501.5200 ####[facility] [address] [place], [address] Carbon dioxide, total [Moles /volume] in Central venous bloodOrdered By: Luis Hay on 08-18-2024 CO2 [Moles/Vol] 21.3 mmol/L 21.0-32.0 [facility] Chloride assayOrdered By: Royce Hay on 08-18-2024 Chloride [Moles/Vol] 103 mmol/L 98-108 [facility] Glomerular filtration rate ( GFR) estimation/1.73 sq m using serum, plasma, or whole bOrdered By: Luis Hay on 08-18-2024 GFR/1.73 sq M.predicted among non-blacks MDRD (S/P/Bld) [Vol rate/Area] 49 mL/min/{1.73_m2} Low >60 [facility] Internal Medicine Office Vis iton 08-18-2024 Internal Medicine Office Visit Normal [facility] Magnesiumon 08-18-2024 Magnesium [Mass/Vol] 1.3 mg/dL Low 1.5-2.2 [facility] Comment on above: Performed By: #### L 500.2500, L501.5200 ####[facility] [address] [place], [address] Magnesium measurement (mass/ volume)Ordered By: Luis Hay on 08-18-2024 Magnesium (Unsp spec) [Mass/Vol] 1.3 mg/dL Low 1.5-2.2 [facility] No Panel InformationOrdered By: Luis Hay on 08-18-2024 6.9 % High 4.2-6.3 [facility] Potassium measurement (mass/ volume)Ordered By: Luis Hay on 08-18-2024 Potassium (Unsp spec) [Mass/Vol] 4.8 mmol/L 3.3-5.1 [facility] Serum creatinine measurement (mass/volume)Ordered By: Luis Hay on 08-18-2024 Creatinine [Mass/Vol] 1.47 mg/dL High 0.70-1.20 [facility] Serum glucose measurement (m ass/volume)Ordered By: Luis Hay on 08-18-2024 Glucose [Mass/Vol] 134 mg/dL High 70-99 [facility] Serum or plasma calcium musa urement (mass/volume)Ordered By: Luis Hay on 08-18-2024 Calcium [Mass/Vol] 9.3 mg/dL 7.6-11.0 [facility] Serum or plasma urea nitroge n measurement (mass/volume)Ordered By: Luis Hay on 08-18-2024 Urea nitrogen [Mass/Vol] 11 mg/dL 4-19 [facility] Sodium levelOrdered By: Tiana matosmoo Satnam on 08-18-2024 Sodium [Moles/Vol] 139 mmol/L 133-145 [facility] Gastroenterology Visit Repor ton 08-04-2024 Gastroenterology Visit Report Normal [facility] Absolute lymphocyte countOrd ered By: Thee Pettit on 07-22-2024 Lymphocytes Auto (Unsp spec) [#/Vol] 3.06 10*3/uL 0.83-4.51 [facility] Activated partial thrombopla stin time (aPTT) in platelet poor plasma by coagulation aOrdered By: Thee Pettit on 07-22-2024 aPTT Coag (PPP) [Time] 32.8 s 24.1-36.2 [facility] Anion gap in Serum or Plasma Ordered By: Thee Pettit on 07-22-2024 Anion gap [Moles/Vol] 14 mmol/L 5-15 [facility] Automated lymphocyte count a s percentage of total leukocytesOrdered By: Thee Pettit on 07-22-2024 Lymphocytes/100 WBC Auto (Unsp spec) 37.1 % 19-41 [facility] BUN/creatinine ratioOrdered By: Thee Pettit on 07-22-2024 Urea nitrogen/Creatinine [Mass ratio] 9.5 mg/mg Low 10-20 [facility] Basic Metabolic Profile (BMP )on 07-22-2024 BUN/CRE 9.5 RATIO Low 10-20 [facility] Comment on above: Performed By: #### L 300.3900, L500.2500, L501.4021, L300.4310, L100.0100, L501.5200 ####[facility] [address] [place], [address] Calcium [Mass/Vol] 9.0 mg/dL Normal 7.6-11.0 [facility] Comment on above: Performed By: #### L 300.3900, L500.2500, L501.4021, L300.4310, L100.0100, L501.5200 ####[facility] [address] [place], [address] Chloride [Moles/Vol] 104 mmol/L Normal 98-108 [facility] Comment on above: Performed By: #### L 300.3900, L500.2500, L501.4021, L300.4310, L100.0100, L501.5200 ####[facility] [address] [place], [address] CO2 [Moles/Vol] 23.0 mmol/L Normal 21.0-32.0 [facility] Comment on above: Performed By: #### L 300.3900, L500.2500, L501.4021, L300.4310, L100.0100, L501.5200 ####[facility] [address] [place], [address] Creatinine [Mass/Vol] 1.28 mg/dL High 0.70-1.20 [facility] Comment on above: Performed By: #### L 300.3900, L500.2500, L501.4021, L300.4310, L100.0100, L501.5200 ####[facility] [address] [place], [address] ECRCL 57.60 ml/min Normal 50-250 [facility] Comment on above: Performed By: #### L 300.3900, L500.2500, L501.4021, L300.4310, L100.0100, L501.5200 ####[facility] [address] [place], [address] GAP 14 Normal 5-15 [facility] Comment on above: Performed By: #### L 300.3900, L500.2500, L501.4021, L300.4310, L100.0100, L501.5200 ####[facility] [address] [place], [address] GFR/1.73 sq M.predicted among non-blacks MDRD (S/P/Bld) [Vol rate/Area] 58 mL/min/{1.73_m2} Low >60 [facility] Comment on above: Result Comment: mL/m in/1.73m2 CKD-EPI Creatinine Equation (2020) Performed By: #### L 300.3900, L500.2500, L501.4021, L300.4310, L100.0100, L501.5200 ####[facility] [address] [place], [address] Glucose [Mass/Vol] 139 mg/dL High 70-99 [facility] Comment on above: Performed By: #### L 300.3900, L500.2500, L501.4021, L300.4310, L100.0100, L501.5200 ####[facility] [address] [place], [address] Potassium [Moles/Vol] 4.3 mmol/L Normal 3.3-5.1 [facility] Comment on above: Performed By: #### L 300.3900, L500.2500, L501.4021, L300.4310, L100.0100, L501.5200 ####[facility] [address] [place], [address] Sodium [Moles/Vol] 141 mmol/L Normal 133-145 [facility] Comment on above: Performed By: #### L 300.3900, L500.2500, L501.4021, L300.4310, L100.0100, L501.5200 ####[facility] [address] [place], [address] Urea nitrogen [Mass/Vol] 12 mg/dL Normal 4-19 [facility] Comment on above: Performed By: #### L 300.3900, L500.2500, L501.4021, L300.4310, L100.0100, L501.5200 ####[facility] [address] [place], [address] Basophil percentageOrdered B y: Thee Pettit on 07-22-2024 Basophils/100 WBC (Bld) 0.6 % 0-1 [facility] CBC W/Diff, Automatedon 07-10 Absolute Lymph 3.06 X10 3/uL Normal 0.83-4.51 [facility] Comment on above: Performed By: #### L 300.3900, L500.2500, L501.4021, L300.4310, L100.0100, L501.5200 ####[facility] [address] [place], [address] Absolute Neut 4.2 X10 3/uL Normal 2.0-7.7 [facility] Comment on above: Performed By: #### L 300.3900, L500.2500, L501.4021, L300.4310, L100.0100, L501.5200 ####[facility] [address] [place], [address] Basophils/100 WBC (Bld) 0.6 % Normal 0-1 [facility] Comment on above: Performed By: #### L 300.3900, L500.2500, L501.4021, L300.4310, L100.0100, L501.5200 ####[facility] [address] [place], [address] Eosinophils/100 WBC (Bld) 2.7 % Normal 0-5 [facility] Comment on above: Performed By: #### L 300.3900, L500.2500, L501.4021, L300.4310, L100.0100, L501.5200 ####[facility] [address] [place], [address] Erythrocyte distribution width (RBC) [Ratio] 13.3 % Normal 11.6-14.6 [facility] Comment on above: Performed By: #### L 300.3900, L500.2500, L501.4021, L300.4310, L100.0100, L501.5200 ####[facility] [address] [place], [address] Hematocrit (Bld) [Volume fraction] 42.9 % Normal 40-54 [facility] Comment on above: Performed By: #### L 300.3900, L500.2500, L501.4021, L300.4310, L100.0100, L501.5200 ####[facility] [address] [place], [address] Hemoglobin (Bld) [Mass/Vol] 14.7 g/dL Normal 13.0-16.5 [facility] Comment on above: Performed By: #### L 300.3900, L500.2500, L501.4021, L300.4310, L100.0100, L501.5200 ####[facility] [address] [place], [address] IG% 0.200 Normal 0.0-0.9 [facility] Comment on above: Result Comment: IG% - Immature Granulocytes (promyelocytes, myelocytes andmetamyelocytes) > 1% indicates that a LEFT SHIFT is Present. Performed By: #### L 300.3900, L500.2500, L501.4021, L300.4310, L100.0100, L501.5200 ####[facility] [address] [place], [address] Lymphocytes/100 WBC (Bld) 37.1 % Normal 19-41 [facility] Comment on above: Performed By: #### L 300.3900, L500.2500, L501.4021, L300.4310, L100.0100, L501.5200 ####[facility] [address] [place], [address] MCH (RBC) [Entitic mass] 32.7 pg High 27.0-32.0 [facility] Comment on above: Performed By: #### L 300.3900, L500.2500, L501.4021, L300.4310, L100.0100, L501.5200 ####[facility] [address] [place], [address] MCHC (RBC) [Mass/Vol] 34.3 g/dL Normal 32-36 [facility] Comment on above: Performed By: #### L 300.3900, L500.2500, L501.4021, L300.4310, L100.0100, L501.5200 ####[facility] [address] [place], [address] MCV (RBC) [Entitic vol] 95.5 fL High 80-94 [facility] Comment on above: Performed By: #### L 300.3900, L500.2500, L501.4021, L300.4310, L100.0100, L501.5200 ####[facility] [address] [place], [address] Monocytes/100 WBC (Bld) 9.0 % Normal 0-10 [facility] Comment on above: Performed By: #### L 300.3900, L500.2500, L501.4021, L300.4310, L100.0100, L501.5200 ####[facility] [address] [place], [address] Neutrophils/100 WBC (Bld) 50.4 % Normal 47-70 [facility] Comment on above: Performed By: #### L 300.3900, L500.2500, L501.4021, L300.4310, L100.0100, L501.5200 ####[facility] [address] [place], [address] Nucleated RBC (Bld) [#/Vol] 0 10*3/uL Normal 0-5 [facility] Comment on above: Performed By: #### L 300.3900, L500.2500, L501.4021, L300.4310, L100.0100, L501.5200 ####[facility] [address] [place], [address] Platelet mean volume (Bld) [Entitic vol] 10.6 fL Normal 6.2-12.0 [facility] Comment on above: Performed By: #### L 300.3900, L500.2500, L501.4021, L300.4310, L100.0100, L501.5200 ####[facility] [address] [place], [address] Platelets (Bld) [#/Vol] 182 10*3/uL Normal 150-450 [facility] Comment on above: Performed By: #### L 300.3900, L500.2500, L501.4021, L300.4310, L100.0100, L501.5200 ####[facility] [address] [place], [address] RBC (Bld) [#/Vol] 4.49 10*6/uL Low 4.6-6.2 [facility] Comment on above: Performed By: #### L 300.3900, L500.2500, L501.4021, L300.4310, L100.0100, L501.5200 ####[facility] [address] [place], [address] RDW SD 46.5 fl High 35.1-43.9 [facility] Comment on above: Performed By: #### L 300.3900, L500.2500, L501.4021, L300.4310, L100.0100, L501.5200 ####[facility] [address] [place], [address] WBC (Bld) [#/Vol] 8.3 10*3/uL Normal 4.4-11.0 [facility] Comment on above: Performed By: #### L 300.3900, L500.2500, L501.4021, L300.4310, L100.0100, L501.5200 ####[facility] [address] [place], [place], [id number](369) Carbon dioxide, total [Moles /volume] in Central venous bloodOrdered By: Thee Pettit on 07-22-2024 CO2 [Moles/Vol] 23.0 mmol/L 21.0-32.0 [facility] Chest 1 View (Portable)on Chest 1 View (Portable) Normal [facility] Chloride assayOrdered By: Marvin Pettit on 07-22-2024 Chloride [Moles/Vol] 104 mmol/L 98-108 [facility] Emergency Department Summary on 07-22-2024 Emergency Department Summary Normal [facility] Eosinophil percentageOrdered By: Thee Pettit on 07-22-2024 Eosinophils/100 WBC (Bld) 2.7 % 0-5 [facility] Erythrocyte distribution wid th ratioOrdered By: Thee Pettit on 07-22-2024 Erythrocyte distribution width (RBC) [Ratio] 13.3 % 11.6-14.6 [facility] Erythrocyte distribution wid th standard deviationOrdered By: Thee Pettit on 07-22-2024 Erythrocyte distribution width (RBC) [Ratio] 46.5 fl High 35.1-43.9 [facility] Glomerular filtration rate ( GFR) estimation/1.73 sq m using serum, plasma, or whole bOrdered By: Thee Pettit on 07-22-2024 GFR/1.73 sq M.predicted among non-blacks MDRD (S/P/Bld) [Vol rate/Area] 58 mL/min/{1.73_m2} Low >60 [facility] Hematocrit Auto (Bld) [Volum e fraction]Ordered By: Thee Pettit on 07-22-2024 Hematocrit (Bld) [Volume fraction] 42.9 % 40-54 [facility] Hemoglobin measurementOrdere d By: Tehe Pettit on 07-22-2024 Hemoglobin (Bld) [Mass/Vol] 14.7 g/dL 13.0-16.5 [facility] Immature granulocytes/100 WB C Auto (Bld)Ordered By: Thee Pettit on 07-22-2024 Immature granulocytes/100 WBC (Bld) 0.200 % 0.0-0.9 [facility] L499.0042on 07-22-2024 Trop T High Sen 14 ng/L Normal <=22 [facility] Comment on above: Performed By: #### L 499.0042 ####[facility] [address] [place], [address] L499.0043on 07-22-2024 Trop T High Sen Normal <=22 [facility] Comment on above: Result Comment: Canc elled via OM: Order cancelled - Patient discharged Performed By: #### L 499.0043 ####[facility] [address] [place], [address] L501.4021on 07-22-2024 Trop T High Sen 13 ng/L Normal <=22 [facility] Comment on above: Performed By: #### L 300.3900, L500.2500, L501.4021, L300.4310, L100.0100, L501.5200 ####[facility] [address] [place], [address] MCV (mean corpuscular volume ) determinationOrdered By: Thee Pettit on 07-22-2024 MCV (RBC) [Entitic vol] 95.5 fL High 80-94 [facility] Magnesiumon 07-22-2024 Magnesium [Mass/Vol] 1.4 mg/dL Low 1.5-2.2 [facility] Comment on above: Performed By: #### L 300.3900, L500.2500, L501.4021, L300.4310, L100.0100, L501.5200 ####[facility] [address] [place], [place], [id number] Magnesium measurement (mass/ volume)Ordered By: Thee Pettit on 07-22-2024 Magnesium (Unsp spec) [Mass/Vol] 1.4 mg/dL Low 1.5-2.2 [facility] Mean corpuscular hemoglobin (MCH) determinationOrdered By: Thee Pettit on 07-22-2024 MCH (RBC) [Entitic mass] 32.7 pg High 27.0-32.0 [facility] Monocyte percentageOrdered B y: Thee Pettit on 07-22-2024 Monocytes/100 WBC (Bld) 9.0 % 0-10 [facility] Neutrophil percentageOrdered By: Thee Pettit on 07-22-2024 Neutrophils/100 WBC (Bld) 50.4 % 47-70 [facility] Partial Thromboplast Timeon 07-22-2024 aPTT Coag (Bld) [Time] 32.8 s Normal 24.1-36.2 [facility] Comment on above: Performed By: #### L 300.3900, L500.2500, L501.4021, L300.4310, L100.0100, L501.5200 ####[facility] [address] [place], [place], [id number] Platelet countOrdered By: Marvin Pettit on 07-22-2024 Platelets (Bld) [#/Vol] 182 10*3/uL 150-450 [facility] Potassium measurement (mass/ volume)Ordered By: Thee Pettit on 07-22-2024 Potassium (Unsp spec) [Mass/Vol] 4.3 mmol/L 3.3-5.1 [facility] Prothrombin Time w/INRon INR Coag (PPP) [Relative time] 2.0 {INR} Normal [facility] Comment on above: Performed By: #### L 300.3900, L500.2500, L501.4021, L300.4310, L100.0100, L501.5200 ####[facility] [address] [place], [place], [id number] PT Coag (PPP) [Time] 23.0 s High 11.7-14.9 [facility] Comment on above: Performed By: #### L 300.3900, L500.2500, L501.4021, L300.4310, L100.0100, L501.5200 ####[facility] [address] [place], [place], [id number] Prothrombin timeOrdered By: Thee Pettit on 07-22-2024 PT Coag (PPP) [Time] 23.0 s High 11.7-14.9 [facility] RBC Auto (Bld) [#/Vol]Ordere d By: Thee Pettit on 07-22-2024 RBC (Bld) [#/Vol] 4.49 10*6/uL Low 4.6-6.2 [facility] Serum creatinine measurement (mass/volume)Ordered By: Thee Pettit on 07-22-2024 Creatinine [Mass/Vol] 1.28 mg/dL High 0.70-1.20 [facility] Serum glucose measurement (m ass/volume)Ordered By: Thee Pettit on 07-22-2024 Glucose [Mass/Vol] 139 mg/dL High 70-99 [facility] Serum or plasma calcium musa urement (mass/volume)Ordered By: Thee Pettit on 07-22-2024 Calcium [Mass/Vol] 9.0 mg/dL 7.6-11.0 [facility] Serum or plasma urea nitroge n measurement (mass/volume)Ordered By: Thee Pettit on 07-22-2024 Urea nitrogen [Mass/Vol] 12 mg/dL 4-19 [facility] Sodium levelOrdered By: Thee Pettit on 07-22-2024 Sodium [Moles/Vol] 141 mmol/L 133-145 [facility] Troponin T.cardiac [Mass/vol ume] in Serum or Plasma by High sensitivity methodOrdered By: Thee Pettit on 07-22-2024 Troponin T.cardiac High sensitivity method [Mass/Vol] 14 ng/L <22 [facility] Troponin T.cardiac High sensitivity method [Mass/Vol] 13 ng/L <22 [facility] White blood cell (WBC) count Ordered By: Thee Pettit on 07-22-2024 WBC (Bld) [#/Vol] 8.3 10*3/uL 4.4-11.0 [facility] Esophagus Dual Contraston Esophagus Dual Contrast Normal [facility] No Panel Informationon 07-08 2.2 [facility] Cardiology Visit Reporton Cardiology Visit Report Normal [facility] No Panel Informationon 06-24 INR International Normalized Ratio 2.3 [facility] 2.3 [facility] Cardiology Visit Reporton Cardiology Visit Report Normal [facility] Absolute lymphocyte countOrd ered By: Jeb Cuellar on 06-04-2024 Lymphocytes Auto (Unsp spec) [#/Vol] 4.04 10*3/uL 0.83-4.51 [facility] Absolute neutrophil countOrd ered By: Jeb Cuellar on 06-04-2024 Neutrophils (Bld) [#/Vol] 4.6 10*3/uL 2.0-7.7 [facility] Anion gap in Serum or Plasma Ordered By: Jeb Cuellar on 06-04-2024 Anion gap [Moles/Vol] 15 mmol/L 5-15 [facility] Automated lymphocyte count a s percentage of total leukocytesOrdered By: Jeb Cuellar on 06-04-2024 Lymphocytes/100 WBC Auto (Unsp spec) 40.9 % [facility] BUN/creatinine ratioOrdered By: Jeb Cuellar on 06-04-2024 Urea nitrogen/Creatinine [Mass ratio] 11.1 mg/mg - [facility] Basic Metabolic Profile (BMP )on 06-04-2024 BUN/CRE 11.1 RATIO Normal 11-28 [facility] Comment on above: Performed By: #### L 501.4021, L100.0100, L500.2500 ####[facility] [address] [place], [address] Calcium [Mass/Vol] 9.1 mg/dL Normal 7.6-11.0 [facility] Comment on above: Performed By: #### L 501.4021, L100.0100, L500.2500 ####[facility] [address] [place], [address] Chloride [Moles/Vol] 102 mmol/L Normal 98-108 [facility] Comment on above: Performed By: #### L 501.4021, L100.0100, L500.2500 ####[facility] [address] [place], [address] CO2 [Moles/Vol] 21.5 mmol/L Normal 21.0-32.0 [facility] Comment on above: Performed By: #### L 501.4021, L100.0100, L500.2500 ####[facility] [address] [place], [address] Creatinine [Mass/Vol] 1.37 mg/dL High 0.70-1.20 [facility] Comment on above: Performed By: #### L 501.4021, L100.0100, L500.2500 ####[facility] [address] [place], [address] ECRCL 53.89 ml/min Normal 50-250 [facility] Comment on above: Performed By: #### L 501.4021, L100.0100, L500.2500 ####[facility] [address] [place], [address] GAP 15 Normal 5-15 [facility] Comment on above: Performed By: #### L 501.4021, L100.0100, L500.2500 ####[facility] [address] [place], [address] GFR/1.73 sq M.predicted among non-blacks MDRD (S/P/Bld) [Vol rate/Area] 53 mL/min/{1.73_m2} Low >60 [facility] Comment on above: Result Comment: mL/m in/1.73m2 CKD-EPI Creatinine Equation (2020) Performed By: #### L 501.4021, L100.0100, L500.2500 ####[facility] [address] [place], [address] Glucose [Mass/Vol] 176 mg/dL High 70-99 [facility] Comment on above: Performed By: #### L 501.4021, L100.0100, L500.2500 ####[facility] [address] [place], [address] Potassium [Moles/Vol] 4.1 mmol/L Normal 3.3-5.1 [facility] Comment on above: Performed By: #### L 501.4021, L100.0100, L500.2500 ####[facility] [address] [place], [address] Sodium [Moles/Vol] 138 mmol/L Normal 133-145 [facility] Comment on above: Performed By: #### L 501.4021, L100.0100, L500.2500 ####[facility] [address] [place], [address] Urea nitrogen [Mass/Vol] 15 mg/dL Normal 4-19 [facility] Comment on above: Performed By: #### L 501.4021, L100.0100, L500.2500 ####[facility] [address] [place], [address] Basophil percentageOrdered B y: Jeb Cuellar on 06-04-2024 Basophils/100 WBC (Bld) 0.6 % 0-1 [facility] CBC W/Diff, Automatedon 05-11 Absolute Lymph 4.04 X10 3/uL Normal 0.83-4.51 [facility] Comment on above: Performed By: #### L 501.4021, L100.0100, L500.2500 ####[facility] [address] [place], [address] Absolute Neut 4.6 X10 3/uL Normal 2.0-7.7 [facility] Comment on above: Performed By: #### L 501.4021, L100.0100, L500.2500 ####[facility] [address] [place], [address] Basophils/100 WBC (Bld) 0.6 % Normal 0-1 [facility] Comment on above: Performed By: #### L 501.4021, L100.0100, L500.2500 ####[facility] [address] [place], [address] Eosinophils/100 WBC (Bld) 2.4 % Normal 0-5 [facility] Comment on above: Performed By: #### L 501.4021, L100.0100, L500.2500 ####[facility] [address] [place], [address] Erythrocyte distribution width (RBC) [Ratio] 13.2 % Normal 11.6-14.6 [facility] Comment on above: Performed By: #### L 501.4021, L100.0100, L500.2500 ####[facility] [address] [place], [address] Hematocrit (Bld) [Volume fraction] 43.1 % Normal 40-54 [facility] Comment on above: Performed By: #### L 501.4021, L100.0100, L500.2500 ####[facility] [address] [place], [address] Hemoglobin (Bld) [Mass/Vol] 14.8 g/dL Normal 13.0-16.5 [facility] Comment on above: Performed By: #### L 501.4021, L100.0100, L500.2500 ####[facility] [address] [place], [address] IG% 0.300 Normal 0.0-0.9 [facility] Comment on above: Result Comment: IG% - Immature Granulocytes (promyelocytes, myelocytes andmetamyelocytes) > 1% indicates that a LEFT SHIFT is Present. Performed By: #### L 501.4021, L100.0100, L500.2500 ####[facility] [address] [place], [address] Lymphocytes/100 WBC (Bld) 40.9 % Normal 19-41 [facility] Comment on above: Performed By: #### L 501.4021, L100.0100, L500.2500 ####[facility] [address] [place], [address] MCH (RBC) [Entitic mass] 31.6 pg Normal 27.0-32.0 [facility] Comment on above: Performed By: #### L 501.4021, L100.0100, L500.2500 ####[facility] [address] [place], [address] MCHC (RBC) [Mass/Vol] 34.3 g/dL Normal 32-36 [facility] Comment on above: Performed By: #### L 501.4021, L100.0100, L500.2500 ####[facility] [address] [place], [address] MCV (RBC) [Entitic vol] 91.9 fL Normal 80-94 [facility] Comment on above: Performed By: #### L 501.4021, L100.0100, L500.2500 ####[facility] [address] [place], [address] Monocytes/100 WBC (Bld) 8.9 % Normal 0-10 [facility] Comment on above: Performed By: #### L 501.4021, L100.0100, L500.2500 ####[facility] [address] [place], [address] Neutrophils/100 WBC (Bld) 46.9 % Low 47-70 [facility] Comment on above: Performed By: #### L 501.4021, L100.0100, L500.2500 ####[facility] [address] [place], [address] Nucleated RBC (Bld) [#/Vol] 0 10*3/uL Normal 0-5 [facility] Comment on above: Performed By: #### L 501.4021, L100.0100, L500.2500 ####[facility] [address] [place], [address] Platelet mean volume (Bld) [Entitic vol] 10.5 fL Normal 6.2-12.0 [facility] Comment on above: Performed By: #### L 501.4021, L100.0100, L500.2500 ####[facility] [address] [place], [address] Platelets (Bld) [#/Vol] 186 10*3/uL Normal 150-450 [facility] Comment on above: Performed By: #### L 501.4021, L100.0100, L500.2500 ####[facility] [address] [place], [address] RBC (Bld) [#/Vol] 4.69 10*6/uL Normal 4.6-6.2 [facility] Comment on above: Performed By: #### L 501.4021, L100.0100, L500.2500 ####[facility] [address] [place], [address] RDW SD 44.1 fl High 35.1-43.9 [facility] Comment on above: Performed By: #### L 501.4021, L100.0100, L500.2500 ####[facility] [address] [place], [address] WBC (Bld) [#/Vol] 9.9 10*3/uL Normal 4.4-11.0 [facility] Comment on above: Performed By: #### L 501.4021, L100.0100, L500.2500 ####[facility] [address] [place], [address] Carbon dioxide, total [Moles /volume] in Central venous bloodOrdered By: Jeb Cuellar on 06-04-2024 CO2 [Moles/Vol] 21.5 mmol/L 21.0-32.0 [facility] Chest 1 View (Portable)on Chest 1 View (Portable) Normal [facility] Chloride assayOrdered By: Sweetie Cuellar on 06-04-2024 Chloride [Moles/Vol] 102 mmol/L 98-108 [facility] Emergency Department Summary on 06-04-2024 Emergency Department Summary Normal [facility] Eosinophil percentageOrdered By: Jeb Cuellar on 06-04-2024 Eosinophils/100 WBC (Bld) 2.4 % 0-5 [facility] Erythrocyte distribution wid th (RBC) [Ratio]Ordered By: Jeb Cuellar on 06-04-2024 Erythrocyte distribution width (RBC) [Entitic vol] 44.1 fL High 35.1-43.9 [facility] Erythrocyte distribution wid th ratioOrdered By: Jeb Cuellar on 06-04-2024 Erythrocyte distribution width (RBC) [Ratio] 13.2 % 11.6-14.6 [facility] Erythrocyte distribution wid th standard deviationOrdered By: Jeb Cuellar on 06-04-2024 Erythrocyte distribution width (RBC) [Ratio] 44.1 fl High 35.1-43.9 [facility] Estimation of creatinine luz maria aranceOrdered By: Jeb Cuellar on 06-04-2024 Estimated Creatinine Clearance Calc 53.89 ml/min 50-250 [facility] GFR/1.73 sq M.predicted joey g non-blacks MDRD (S/P/Bld) [Vol rate/Area]Ordered By: Jeb Cuellar on 06-04-2024 Estimated GFR (MDRD) Non-Af Amer 53 Low >60 [facility] Comment on above: mL/min/1.73m2 CKD-EP I Creatinine Equation (2020) Glomerular filtration rate ( GFR) estimation/1.73 sq m using serum, plasma, or whole bOrdered By: Jeb Cuellar on 06-04-2024 GFR/1.73 sq M.predicted among non-blacks MDRD (S/P/Bld) [Vol rate/Area] 53 mL/min/{1.73_m2} Low >60 [facility] Comment on above: mL/min/1.73m2 CKD-EP I Creatinine Equation (2020) Hematocrit Auto (Bld) [Volum e fraction]Ordered By: Jeb Cuellar 06-04-2024 Hematocrit (Bld) [Volume fraction] 43.1 % 40-54 [facility] Hemoglobin measurementOrdere d By: Jeb Cuellar on 06-04-2024 Hemoglobin (Bld) [Mass/Vol] 14.8 g/dL 13.0-16.5 [facility] Immature granulocytes/100 WB C Auto (Bld)Ordered By: Jeb Cuellar on 06-04-2024 Immature granulocytes/100 WBC (Bld) 0.300 % 0.0-0.9 [facility] Comment on above: IG% - Immature Granu locytes (promyelocytes, myelocytes and metamyelocytes) > 1% indicates that a LEFT SHIFT is Present. International normalized rat io (INR) calculationOrdered By: Jeb Cuellar on 06-04-2024 INR Coag (Bld) [Relative time] 1.4 {INR} [facility] L499.0042on 06-04-2024 Trop T High Sen 14 ng/L Normal <=22 [facility] Comment on above: Performed By: #### L 499.0042 ####[facility] [address] [place], [address] L499.0043on 06-04-2024 Trop T High Sen Normal <=22 [facility] Comment on above: Result Comment: Canc elled via OM: Order cancelled - Patient discharged Performed By: #### L 499.0043 ####[facility] [address] [place], [address] L501.4021on 06-04-2024 Trop T High Sen 12 ng/L Normal <=22 [facility] Comment on above: Performed By: #### L 501.4021, L100.0100, L500.2500 ####[facility] [address] [place], [address] Lymphocytes Auto (Unsp spec) [#/Vol]Ordered By: Jeb Cuellar on 06-04-2024 Lymphocytes (Bld) [#/Vol] 4.04 10*3/uL 0.83-4.51 [facility] Lymphocytes/100 WBC Auto (Un sp spec)Ordered By: Jeb Cuellar on 06-04-2024 Lymphocytes/100 WBC (Bld) 40.9 % 19-41 [facility] MCV (mean corpuscular volume ) determinationOrdered By: Jeb Cuellar on 06-04-2024 MCV (RBC) [Entitic vol] 91.9 fL 80-94 [facility] Mean corpuscular hemoglobin (MCH) determinationOrdered By: Jeb Cuellar on 06-04-2024 MCH (RBC) [Entitic mass] 31.6 pg 27.0-32.0 [facility] Mean corpuscular hemoglobin concentration (MCHC) determinationOrdered By: Jeb Cuellar on 06-04-2024 MCHC (RBC) [Mass/Vol] 34.3 g/dL 32-36 [facility] Mean platelet volume determi nationOrdered By: Jeb Cuellar on 06-04-2024 Platelet mean volume (Bld) [Entitic vol] 10.5 fL 6.2-12.0 [facility] Monocyte percentageOrdered B y: Jeb Cuellar on 06-04-2024 Monocytes/100 WBC (Bld) 8.9 % 0-10 [facility] Neutrophil percentageOrdered By: Jeb Cuellar on 06-04-2024 Neutrophils/100 WBC (Bld) 46.9 % Low 47-70 [facility] Nucleated red blood cell per centageOrdered By: Jeb Cuellar on 06-04-2024 Nucleated RBC/100 WBC (Bld) [Ratio] 0 % 0-5 [facility] Platelet countOrdered By: Sweetie Cuellar on 06-04-2024 Platelets (Bld) [#/Vol] 186 10*3/uL 150-450 [facility] Potassium (Unsp spec) [Mass/ Vol]Ordered By: Jeb Cuellar on 06-04-2024 Potassium [Moles/Vol] 4.1 mmol/L 3.3-5.1 [facility] Potassium measurement (mass/ volume)Ordered By: Jeb Cuellar on 06-04-2024 Potassium (Unsp spec) [Mass/Vol] 4.1 mmol/L 3.3-5.1 [facility] Prothrombin Time w/INRon INR Coag (PPP) [Relative time] 1.4 {INR} Normal [facility] Comment on above: Performed By: #### L 300.3900 ####[facility] [address] [place], [place], [id number] PT Coag (PPP) [Time] 17.3 s High 11.7-14.9 [facility] Comment on above: Performed By: #### L 300.3900 ####[facility] [address] [place], [place], [id number] Prothrombin timeOrdered By: Jeb Cuellar on 06-04-2024 PT Coag (PPP) [Time] 17.3 s High 11.7-14.9 [facility] RBC Auto (Bld) [#/Vol]Ordere d By: Jeb Cuellar on 06-04-2024 RBC (Bld) [#/Vol] 4.69 10*6/uL 4.6-6.2 [facility] Serum creatinine measurement (mass/volume)Ordered By: Jeb Cuellar on 06-04-2024 Creatinine [Mass/Vol] 1.37 mg/dL High 0.70-1.20 [facility] Serum glucose measurement (m ass/volume)Ordered By: Jeb Cuellar on 06-04-2024 Glucose [Mass/Vol] 176 mg/dL High 70-99 [facility] Serum or plasma calcium musa urement (mass/volume)Ordered By: Jeb Cuellar on 06-04-2024 Calcium [Mass/Vol] 9.1 mg/dL 7.6-11.0 [facility] Serum or plasma urea nitroge n measurement (mass/volume)Ordered By: Jeb Cuellar on 06-04-2024 Urea nitrogen [Mass/Vol] 15 mg/dL 4-19 [facility] Sodium levelOrdered By: Rodney Cuellar on 06-04-2024 Sodium [Moles/Vol] 138 mmol/L 133-145 [facility] Troponin T.cardiac High sens itivity method [Mass/Vol]Ordered By: Jeb Cuellar on 06-04-2024 Troponin T High Sensitivity 2 Hour 14 ng/L <22 [facility] Troponin T High Sensitivity 12 ng/L <22 [facility] Troponin T.cardiac [Mass/vol ume] in Serum or Plasma by High sensitivity methodOrdered By: Jeb Cuellar on 06-04-2024 Troponin T.cardiac High sensitivity method [Mass/Vol] 14 ng/L <22 [facility] Troponin T.cardiac High sensitivity method [Mass/Vol] 12 ng/L <22 [facility] White blood cell (WBC) count Ordered By: Jeb Cuellar on 06-04-2024 WBC (Bld) [#/Vol] 9.9 10*3/uL 4.4-11.0 [facility] No Panel Informationon 05-27 INR International Normalized Ratio 2.3 [facility] 2.3 [facility] No Panel Informationon 05-13 INR International Normalized Ratio 2.1 [facility] 2.1 [facility] No Panel Informationon 04-29 INR International Normalized Ratio 1.8 [facility] 1.8 [facility] Anion gap in Serum or Plasma Ordered By: Luis Hay on 04-28-2024 Anion gap [Moles/Vol] 14 mmol/L 06-23 [facility] BUN/creatinine ratioOrdered By: Luis Hay on 04-28-2024 Urea nitrogen/Creatinine [Mass ratio] 10.3 mg/mg 11-28 [facility] Basic Metabolic Profile (BMP )on 04-28-2024 BUN/CRE 10.3 RATIO Normal 11-28 [facility] Comment on above: Performed By: #### L 500.2500 ####[facility] [address] [place], [address] Calcium [Mass/Vol] 9.6 mg/dL Normal 7.6-11.0 [facility] Comment on above: Performed By: #### L 500.2500 ####[facility] [address] [place], [address] Chloride [Moles/Vol] 101 mmol/L Normal 98-108 [facility] Comment on above: Performed By: #### L 500.2500 ####[facility] [address] [place], [address] CO2 [Moles/Vol] 24.4 mmol/L Normal 21.0-32.0 [facility] Comment on above: Performed By: #### L 500.2500 ####[facility] [address] [place], [address] Creatinine [Mass/Vol] 1.28 mg/dL High 0.70-1.20 [facility] Comment on above: Performed By: #### L 500.2500 ####[facility] [address] [place], [address] GAP 14 Normal 5-15 [facility] Comment on above: Performed By: #### L 500.2500 ####[facility] [address] [place], [address] GFR/1.73 sq M.predicted among non-blacks MDRD (S/P/Bld) [Vol rate/Area] 58 mL/min/{1.73_m2} Low >60 [facility] Comment on above: Result Comment: mL/m in/1.73m2 CKD-EPI Creatinine Equation (2020) Performed By: #### L 500.2500 ####[facility] [address] [place], [address] Glucose [Mass/Vol] 160 mg/dL High 70-99 [facility] Comment on above: Performed By: #### L 500.2500 ####[facility] [address] [place], [address] Potassium [Moles/Vol] 4.9 mmol/L Normal 3.3-5.1 [facility] Comment on above: Performed By: #### L 500.2500 ####[facility] [address] [place], [address] Sodium [Moles/Vol] 139 mmol/L Normal 133-145 [facility] Comment on above: Performed By: #### L 500.2500 ####[facility] [address] [place], [address] Urea nitrogen [Mass/Vol] 13 mg/dL Normal 4-19 [facility] Comment on above: Performed By: #### L 500.2500 ####[facility] [address] [place], [address] Carbon dioxide, total [Moles /volume] in Central venous bloodOrdered By: Luis Hay on 04-28-2024 CO2 [Moles/Vol] 24.4 mmol/L 21.0-32.0 [facility] Chloride assayOrdered By: Royce Hay on 04-28-2024 Chloride [Moles/Vol] 101 mmol/L 98-108 [facility] GFR/1.73 sq M.predicted joey g non-blacks MDRD (S/P/Bld) [Vol rate/Area]Ordered By: Luis Hay on 04-28-2024 Estimated GFR (MDRD) Non-Af Amer 58 Low >60 [facility] Comment on above: mL/min/1.73m2 CKD-EP I Creatinine Equation (2020) Glomerular filtration rate ( GFR) estimation/1.73 sq m using serum, plasma, or whole bOrdered By: Luis Hay on 04-28-2024 GFR/1.73 sq M.predicted among non-blacks MDRD (S/P/Bld) [Vol rate/Area] 58 mL/min/{1.73_m2} Low >60 [facility] Comment on above: mL/min/1.73m2 CKD-EP I Creatinine Equation (2020) Internal Medicine Office Vis iton 04-28-2024 Internal Medicine Office Visit Normal [facility] Laboratory - Hematology and Cell countsOrdered By: Luis Hay on 04-28-2024 HbA1c (Bld) [Mass fraction] 7.0 % High 4.2-6.3 [facility] No Panel InformationOrdered By: Luis Hay on 04-28-2024 7.0 % High 4.2-6.3 [facility] Potassium (Unsp spec) [Mass/ Vol]Ordered By: Luis Hay on 04-28-2024 Potassium [Moles/Vol] 4.9 mmol/L 3.3-5.1 [facility] Potassium measurement (mass/ volume)Ordered By: Luis Hay on 04-28-2024 Potassium (Unsp spec) [Mass/Vol] 4.9 mmol/L 3.3-5.1 [facility] Serum creatinine measurement (mass/volume)Ordered By: Luis Hay on 04-28-2024 Creatinine [Mass/Vol] 1.28 mg/dL High 0.70-1.20 [facility] Serum glucose measurement (m ass/volume)Ordered By: Luis Hay on 04-28-2024 Glucose [Mass/Vol] 160 mg/dL High 70-99 [facility] Serum or plasma calcium musa urement (mass/volume)Ordered By: Luis Hay on 04-28-2024 Calcium [Mass/Vol] 9.6 mg/dL 7.6-11.0 [facility] Serum or plasma urea nitroge n measurement (mass/volume)Ordered By: Luis Hay on 04-28-2024 Urea nitrogen [Mass/Vol] 13 mg/dL 4-19 [facility] Sodium levelOrdered By: Tiana Hay on 04-28-2024 Sodium [Moles/Vol] 139 mmol/L 133-145 [facility] No Panel Informationon 04-08 INR International Normalized Ratio 3.0 [facility] 3.0 [facility] PSA,Total - Annual Screenon 03-31-2024 PSA,TOT SCREEN 0.40 ng/mL Normal 0.00-4.00 [facility] Comment on above: Result Comment: This test was performed using the TPSA assay method for theDimension chemistry system. Values obtained with differentassay methods cannot be used interchangably.When changing PSA assays in the course of monitoring apatient, additional sequential testing should be carriedout to confirm baseline values. Performed By: #### L 501.9910 ####[facility] [address] [place], [place], [address] Screening prostate specific antigen (PSA) measurementOrdered By: Tony Campos on 03-31-2024 Prostate Specific Antigen Screen 0.40 ng/mL 0.00-4.00 [facility] Comment on above: This test was perfor med using the TPSA assay method for theDimension chemistry system. Values obtained with differentassay methods cannot be used interchangably.When changing PSA assays in the course of monitoring apatient, additional sequential testing should be carriedout to confirm baseline values. No Panel Informationon 03-20 INR International Normalized Ratio 1.9 [facility] No Panel Informationon 03-11 INR International Normalized Ratio 1.0 [facility] Microalb:Creat Ratio,Random URon 02-17-2024 Creatinine [Mass/Vol] 49.60 mg/dL Normal NO RAN GE EST. [facility] Comment on above: Performed By: #### L 502.0250 ####[facility] [address] [place], [place], [id number] MALB:CRE 13.5 mg/g CRE Normal <30 mg/g CRE [facility] Comment on above: Performed By: #### L 502.0250 ####[facility] [address] [place], [place], [id number] MICROALBUMIN,UR 6.7 mg/L Normal NO RANGE EST. [facility] Comment on above: Performed By: #### L 502.0250 ####[facility] [address] [place], [place], [id number] Random urine microalbumin me asurementOrdered By: Luis Hay on 02-17-2024 Urine Random Microalbumin 6.7 mg/L NO RANGE EST. [facility] Urine albumin/creatinine rat io for detection of microalbuminuriaOrdered By: Luis Hay on 02-17-2024 Urine Microalbumin/Creatinine Ratio 13.5 mg/g CRE <30 [facility] Urine creatinine measurement (mass/volume)Ordered By: Luis Hay on 02-17-2024 Creatinine (U) [Mass/Vol] 49.60 mg/dL NO RANGE EST. [facility] No Panel Informationon 02-04 INR International Normalized Ratio 2.7 [facility] Microalb:Creat Ratio,Random URon 02-01-2024 MALB:CRE Normal <30 mg/g CRE [facility] Comment on above: Result Comment: NO S PRIMO REC;D-EMAIL SENT Performed By: #### L 502.0250 ####[facility] [address] [place], [place], [id number] MICROALBUMIN,UR Normal NO RANGE EST. [facility] Comment on above: Result Comment: NO S PECIMEN REC;D-EMAIL SENT Performed By: #### L 502.0250 ####[facility] [address] [place], [address] UR CREAT Normal NO RANGE EST. [facility] Comment on above: Result Comment: NO S PECIMEN REC;D-EMAIL SENT Performed By: #### L 502.0250 ####[facility] [address] [place], [place], [id number] Absolute neutrophil countOrd ered By: Tiananew salisburyingrid Hay on 01-27-2024 Neutrophils (Bld) [#/Vol] 6.1 10*3/uL 2.0-7.7 [facility] Albumin to globulin ratioOrd ered By: adalgisanew salisburyingrid Hay on 01-27-2024 Albumin/Globulin [Mass ratio] 0.9 {ratio} 0.9-2.4 [facility] Basophil percentageOrdered B y: Luis Hay on 01-27-2024 Basophils/100 WBC (Bld) 0.6 % 0-1 [facility] Bilirubin, totalOrdered By: Luis Del Rosariochristopher on 01-27-2024 Bilirubin [Mass/Vol] 1.50 mg/dL High 0.20-1.00 [facility] Comment on above: For patients on eltr ombopag therapy, use of Dimension [place] TBIL is not recommended. Blood urea nitrogen (BUN)/cr eatinine ratioOrdered By: Luis Hay on 01-27-2024 Urea nitrogen/Creatinine [Mass ratio] 9.7 mg/mg Low 10-20 [facility] CBC W/Diff, Automatedon 01-09 Absolute Lymph 2.93 X10 3/uL Normal 0.83-4.51 [facility] Comment on above: Performed By: #### L 100.0100, L501.9910, L500.4050 ####[facility] [address] [place], [address] Absolute Neut 6.1 X10 3/uL Normal 2.0-7.7 [facility] Comment on above: Performed By: #### L 100.0100, L501.9910, L500.4050 ####[facility] [address] [place], [address] Basophils/100 WBC (Bld) 0.6 % Normal 0-1 [facility] Comment on above: Performed By: #### L 100.0100, L501.9910, L500.4050 ####[facility] [address] [place], [address] Eosinophils/100 WBC (Bld) 3.1 % Normal 0-5 [facility] Comment on above: Performed By: #### L 100.0100, L501.9910, L500.4050 ####[facility] [address] [place], [address] Erythrocyte distribution width (RBC) [Ratio] 13.7 % Normal 11.6-14.6 [facility] Comment on above: Performed By: #### L 100.0100, L501.9910, L500.4050 ####[facility] [address] [place], [address] Hematocrit (Bld) [Volume fraction] 45.6 % Normal 40-54 [facility] Comment on above: Performed By: #### L 100.0100, L501.9910, L500.4050 ####[facility] [address] [place], [address] Hemoglobin (Bld) [Mass/Vol] 14.9 g/dL Normal 13.0-16.5 [facility] Comment on above: Performed By: #### L 100.0100, L501.9910, L500.4050 ####[facility] [address] [place], [address] IG% 0.300 Normal 0.0-0.9 [facility] Comment on above: Result Comment: IG% - Immature Granulocytes (promyelocytes, myelocytes andmetamyelocytes) > 1% indicates that a LEFT SHIFT is Present. Performed By: #### L 100.0100, L501.9910, L500.4050 ####[facility] [address] [place], [address] Lymphocytes/100 WBC (Bld) 28.1 % Normal 19-41 [facility] Comment on above: Performed By: #### L 100.0100, L501.9910, L500.4050 ####[facility] [address] [place], [address] MCH (RBC) [Entitic mass] 30.7 pg Normal 27.0-32.0 [facility] Comment on above: Performed By: #### L 100.0100, L501.9910, L500.4050 ####[facility] [address] [place], [address] MCHC (RBC) [Mass/Vol] 32.7 g/dL Normal 32-36 [facility] Comment on above: Performed By: #### L 100.0100, L501.9910, L500.4050 ####[facility] [address] [place], [address] MCV (RBC) [Entitic vol] 94.0 fL Normal 80-94 [facility] Comment on above: Performed By: #### L 100.0100, L501.9910, L500.4050 ####[facility] [address] [place], [address] Monocytes/100 WBC (Bld) 9.4 % Normal 0-10 [facility] Comment on above: Performed By: #### L 100.0100, L501.9910, L500.4050 ####[facility] [address] [place], [address] Neutrophils/100 WBC (Bld) 58.5 % Normal 47-70 [facility] Comment on above: Performed By: #### L 100.0100, L501.9910, L500.4050 ####[facility] [address] [place], [address] Nucleated RBC (Bld) [#/Vol] 0 10*3/uL Normal 0-5 [facility] Comment on above: Performed By: #### L 100.0100, L501.9910, L500.4050 ####[facility] [address] [place], [address] Platelet mean volume (Bld) [Entitic vol] 10.9 fL Normal 6.2-12.0 [facility] Comment on above: Performed By: #### L 100.0100, L501.9910, L500.4050 ####[facility] [address] [place], [address] Platelets (Bld) [#/Vol] 214 10*3/uL Normal 150-450 [facility] Comment on above: Performed By: #### L 100.0100, L501.9910, L500.4050 ####[facility] [address] [place], [address] RBC (Bld) [#/Vol] 4.85 10*6/uL Normal 4.6-6.2 [facility] Comment on above: Performed By: #### L 100.0100, L501.9910, L500.4050 ####[facility] [address] [place], [address] RDW SD 47.3 fl High 35.1-43.9 [facility] Comment on above: Performed By: #### L 100.0100, L501.9910, L500.4050 ####[facility] [address] [place], [address] WBC (Bld) [#/Vol] 10.4 10*3/uL Normal 4.4-11.0 [facility] Comment on above: Performed By: #### L 100.0100, L501.9910, L500.4050 ####[facility] [address] [place], [address] Carbon dioxide measurementOr dered By: Luis Hay on 01-27-2024 CO2 [Moles/Vol] 28.0 mmol/L 21.0-32.0 [facility] Chloride measurementOrdered By: Luis Hay on 01-27-2024 Chloride [Moles/Vol] 101 mmol/L 98-107 [facility] Comprehensive Metabolic Prof ilon 01-27-2024 Albumin [Mass/Vol] 3.7 g/dL Normal 3.2-5.0 [facility] Comment on above: Performed By: #### L 100.0100, L501.9910, L500.4050 ####[facility] [address] [place], [address] Albumin/Globulin [Mass ratio] 0.9 {ratio} Normal 0.9-2.4 [facility] Comment on above: Performed By: #### L 100.0100, L501.9910, L500.4050 ####[facility] [address] [place], [address] ALK P 69 U/L Normal 45-117 [facility] Comment on above: Performed By: #### L 100.0100, L501.9910, L500.4050 ####[facility] [address] [place], [address] ALT [Catalytic activity/Vol] 55 U/L Normal 16-61 [facility] Comment on above: Performed By: #### L 100.0100, L501.9910, L500.4050 ####[facility] [address] [place], [address] AST [Catalytic activity/Vol] 42 U/L High 15-37 [facility] Comment on above: Performed By: #### L 100.0100, L501.9910, L500.4050 ####[facility] [address] [place], [address] Bilirubin [Mass/Vol] 1.50 mg/dL High 0.20-1.00 [facility] Comment on above: Result Comment: For patients on eltrombopag therapy, use of Dimension [place] TBIL is not recommended. Performed By: #### L 100.0100, L501.9910, L500.4050 ####[facility] [address] [place], [address] BUN/CRE 9.7 RATIO Low 10-20 [facility] Comment on above: Performed By: #### L 100.0100, L501.9910, L500.4050 ####[facility] [address] [place], [address] CA,Total 9.7 mg/dL Normal 8.5-10.1 [facility] Comment on above: Performed By: #### L 100.0100, L501.9910, L500.4050 ####[facility] [address] [place], [address] Chloride [Moles/Vol] 101 mmol/L Normal 98-107 [facility] Comment on above: Performed By: #### L 100.0100, L501.9910, L500.4050 ####[facility] [address] [place], [address] CO2 [Moles/Vol] 28.0 mmol/L Normal 21.0-32.0 [facility] Comment on above: Performed By: #### L 100.0100, L501.9910, L500.4050 ####[facility] [address] [place], [address] Creatinine [Mass/Vol] 1.45 mg/dL High 0.70-1.30 [facility] Comment on above: Result Comment: The validity of the calculated GFR GFRAA in patients over70 years has not been determined. Clinical correlation isessential. Performed By: #### L 100.0100, L501.9910, L500.4050 ####[facility] [address] [place], [address] EST GFR - AA 61 mL/min Normal >60 [facility] Comment on above: Result Comment: Afri can [place] GFR Calc Performed By: #### L 100.0100, L501.9910, L500.4050 ####[facility] [address] [place], [address] GAP 5 Normal 5-15 [facility] Comment on above: Performed By: #### L 100.0100, L501.9910, L500.4050 ####[facility] [address] [place], [address] GFR/1.73 sq M.predicted among non-blacks MDRD (S/P/Bld) [Vol rate/Area] 50 mL/min/{1.73_m2} Low >60 [facility] Comment on above: Result Comment: Non- GFR Calc Performed By: #### L 100.0100, L501.9910, L500.4050 ####[facility] [address] [place], [address] Globulin (S) [Mass/Vol] 4.2 g/dL Normal 2.2-4.2 [facility] Comment on above: Performed By: #### L 100.0100, L501.9910, L500.4050 ####[facility] [address] [place], [address] Glucose [Mass/Vol] 179 mg/dL High 74-106 [facility] Comment on above: Result Comment: Fast ing Glucose result greater than or equal to 126 mg/dLsuggests DIABETES MELLITUS per A.D.A. criteria. Performed By: #### L 100.0100, L501.9910, L500.4050 ####[facility] [address] [place], [address] Potassium [Moles/Vol] 4.6 mmol/L Normal 3.5-5.1 [facility] Comment on above: Performed By: #### L 100.0100, L501.9910, L500.4050 ####[facility] [address] [place], [address] Sodium [Moles/Vol] 134 mmol/L Low 136-145 [facility] Comment on above: Performed By: #### L 100.0100, L501.9910, L500.4050 ####[facility] [address] [place], [address] T PROT 7.9 g/dL Normal 6.4-8.2 [facility] Comment on above: Performed By: #### L 100.0100, L501.9910, L500.4050 ####[facility] [address] [place], [address] Urea nitrogen [Mass/Vol] 14 mg/dL Normal 7-18 [facility] Comment on above: Performed By: #### L 100.0100, L501.9910, L500.4050 ####[facility] [address] [place], [address] Eosinophil percentageOrdered By: Luis Hay on 01-27-2024 Eosinophils/100 WBC (Bld) 3.1 % 0-5 [facility] Erythrocyte distribution wid th ratioOrdered By: Luis Hay on 01-27-2024 Erythrocyte distribution width (RBC) [Ratio] 13.7 % 11.6-14.6 [facility] Erythrocyte distribution wid th standard deviationOrdered By: Luis Hay on 01-27-2024 Erythrocyte distribution width (RBC) [Entitic vol] 47.3 fL High 35.1-43.9 [facility] Estimated glomerular filtrat ion rate (GFR) AmericanOrdered By: Luis Hay on 01-27-2024 Estimated GFR (MDRD) Amer 61 mL/min >60 [facility] Comment on above: GFR Calc Glomerular filtration rate ( GFR) estimationOrdered By: Luis Hay on 01-27-2024 Estimated GFR (MDRD) Non-Af Amer 50 mL/min Low >60 [facility] Comment on above: Non- GFR Calc Glucose measurementOrdered B y: Luis Hay on 01-27-2024 Glucose [Mass/Vol] 179 mg/dL High 74-106 [facility] Comment on above: Fasting Glucose resu lt greater than or equal to 126 mg/dL suggests DIABETES MELLITUS per A.D.A. criteria. Hematocrit Auto (Bld) [Volum e fraction]Ordered By: Luis Hay on 01-27-2024 Hematocrit (Bld) [Volume fraction] 45.6 % 40-54 [facility] Hemoglobin measurementOrdere d By: Luis Hay on 01-27-2024 Hemoglobin (Bld) [Mass/Vol] 14.9 g/dL 13.0-16.5 [facility] Immature granulocytes/100 WB C Auto (Bld)Ordered By: Luis Hay on 01-27-2024 Immature granulocytes/100 WBC (Bld) 0.300 % 0.0-0.9 [facility] Comment on above: IG% - Immature Granu locytes (promyelocytes, myelocytes and metamyelocytes) > 1% indicates that a LEFT SHIFT is Present. Internal Medicine Office Vis iton 01-27-2024 Internal Medicine Office Visit Normal [facility] Laboratory - Chemistry and C hemistry - challengeOrdered By: Luis Hay on 01-27-2024 AST [Catalytic activity/Vol] 42 U/L High 15-37 [facility] - Hematology and Cell countson 01-27-2024 HbA1c (Bld) [Mass fraction] 6.6 % High 4.2-6.3 [facility] Lymphocytes Auto (Unsp spec) [#/Vol]Ordered By: Roycesolange Del Rosariodarellaiden on 01-27-2024 Lymphocytes (Bld) [#/Vol] 2.93 10*3/uL 0.83-4.51 [facility] Lymphocytes/100 WBC Auto (Un sp spec)Ordered By: Luis Hay on 01-27-2024 Lymphocytes/100 WBC (Bld) 28.1 % 19-41 [facility] MCV (mean corpuscular volume ) determinationOrdered By: Luis Hay on 01-27-2024 MCV (RBC) [Entitic vol] 94.0 fL 80-94 [facility] Mean corpuscular hemoglobin (MCH) determinationOrdered By: Tiananew salisburyingrid Hay on 01-27-2024 MCH (RBC) [Entitic mass] 30.7 pg 27.0-32.0 [facility] Mean corpuscular hemoglobin concentration (MCHC) determinationOrdered By: Tiananew salisburyingrid Hay on 01-27-2024 MCHC (RBC) [Mass/Vol] 32.7 g/dL 32-36 [facility] Mean platelet volume determi nationOrdered By: Luis Hay on 01-27-2024 Platelet mean volume (Bld) [Entitic vol] 10.9 fL 6.2-12.0 [facility] Monocyte percentageOrdered B y: Luis Hay on 01-27-2024 Monocytes/100 WBC (Bld) 9.4 % 0-10 [facility] Neutrophil percentageOrdered By: Luis Hay on 01-27-2024 Neutrophils/100 WBC (Bld) 58.5 % 47-70 [facility] Nucleated red blood cell per centageOrdered By: Luis Hay on 01-27-2024 Nucleated RBC/100 WBC (Bld) [Ratio] 0 % 0-5 [facility] PSA,Total - Annual Screenon 01-27-2024 PSA,TOT SCREEN 0.63 ng/mL Normal 0.00-4.00 [facility] Comment on above: Result Comment: This test was performed using the TPSA assay method for theDimension chemistry system. Values obtained with differentassay methods cannot be used interchangably.When changing PSA assays in the course of monitoring apatient, additional sequential testing should be carriedout to confirm baseline values. Performed By: #### L 100.0100, L501.9910, L500.4050 ####[facility] [address] [place], [address] Platelet countOrdered By: Royce Hay on 01-27-2024 Platelets (Bld) [#/Vol] 214 10*3/uL 150-450 [facility] Potassium measurementOrdered By: Luis Hay on 01-27-2024 Potassium [Moles/Vol] 4.6 mmol/L 3.5-5.1 [facility] RBC Auto (Bld) [#/Vol]Ordere d By: Luis Hay on 01-27-2024 RBC (Bld) [#/Vol] 4.85 10*6/uL 4.6-6.2 [facility] Screening prostate specific antigen (PSA) measurementOrdered By: Luis Hay on 01-27-2024 Prostate Specific Antigen Screen 0.63 ng/mL 0.00-4.00 [facility] Comment on above: This test was perfor med using the TPSA assay method for theDimension chemistry system. Values obtained with differentassay methods cannot be used interchangably.When changing PSA assays in the course of monitoring apatient, additional sequential testing should be carriedout to confirm baseline values. Serum anion gap measurementO rdered By: Luis Hay on 01-27-2024 Anion gap [Moles/Vol] 5 mmol/L 5-15 [facility] Serum globulin measurementOr dered By: Luis Hay on 01-27-2024 Globulin (S) [Mass/Vol] 4.2 g/dL 2.2-4.2 [facility] Serum or plasma alanine hernández otransferase (ALT) measurementOrdered By: Luis Hay on 01-27-2024 ALT [Catalytic activity/Vol] 55 U/L 16-61 [facility] Serum or plasma albumin musa urement (mass/volume)Ordered By: Royceadalgisaayesha Miguel Ángelchristopher on 01-27-2024 Albumin [Mass/Vol] 3.7 g/dL 3.2-5.0 [facility] Serum or plasma alkaline matthew sphatase measurementOrdered By: Luis Miguel Ángelchristopher on 01-27-2024 ALP [Catalytic activity/Vol] 69 U/L 45-117 [facility] Serum or plasma calcium musa urement (mass/volume)Ordered By: Royceadalgisaayesha Miguel Ángeldarellaiden on 01-27-2024 Calcium [Mass/Vol] 9.7 mg/dL 8.5-10.1 [facility] Serum or plasma creatinine m easurement (mass/volume)Ordered By: Luis Miguel Ángelchristopher on 01-27-2024 Creatinine [Mass/Vol] 1.45 mg/dL High 0.70-1.30 [facility] Comment on above: The validity of the calculated GFR & GFRAA in patients over 70 years has not been determined. Clinical correlation is essential. Serum or plasma urea nitroge n measurement (mass/volume)Ordered By: Luis Miguel Ángeldarellaiden on 01-27-2024 Urea nitrogen [Mass/Vol] 14 mg/dL 7-18 [facility] Sodium levelOrdered By: Royceadalgisa ayesha Miguel Ángelchristopher on 01-27-2024 Sodium [Moles/Vol] 134 mmol/L Low 136-145 [facility] Total proteinOrdered By: Markell giles Miguel Ángelchristopher on 01-27-2024 Protein [Mass/Vol] 7.9 g/dL 6.4-8.2 [facility] White blood cell (WBC) count Ordered By: Luis Miguel Ángelchristopher on 01-27-2024 WBC (Bld) [#/Vol] 10.4 10*3/uL 4.4-11.0 [facility] No Panel Informationon 01-24 INR International Normalized Ratio 2.1 [facility] No Panel Informationon 01-07 INR International Normalized Ratio 2.7 [facility] Urgent Care Visit Reporton 03-05-2023 Urgent Care Visit Report Normal [facility] Cardiology Visit Reporton 10 -31-2024 Cardiology Visit Report Normal [facility] Internal Medicine Office Vis iton 10-21-2023 Internal Medicine Office Visit Normal [facility] Basic Metabolic Profile (BMP )on 10-07-2023 BUN Normal 7-18 [facility] Comment on above: Result Comment: Canc elled via OM: Order cancelled - Patient discharged Performed By: #### L 500.2500, L100.0100 ####[facility] [address] [place], [address] BUN/CRE Normal 10-20 [facility] Comment on above: Result Comment: Canc elled via OM: Order cancelled - Patient discharged Performed By: #### L 500.2500, L100.0100 ####[facility] [address] [place], [address] CA,Total Normal 8.5-10.1 [facility] Comment on above: Result Comment: Canc elled via OM: Order cancelled - Patient discharged Performed By: #### L 500.2500, L100.0100 ####[facility] [address] [place], [address] CL Normal 98-107 [facility] Comment on above: Result Comment: Canc elled via OM: Order cancelled - Patient discharged Performed By: #### L 500.2500, L100.0100 ####[facility] [address] [place], [address] CO2 Normal 21.0-32.0 [facility] Comment on above: Result Comment: Canc elled via OM: Order cancelled - Patient discharged Performed By: #### L 500.2500, L100.0100 ####[facility] [address] [place], [address] CREAT,SERUM Normal 0.70-1.30 [facility] Comment on above: Result Comment: Canc elled via OM: Order cancelled - Patient discharged Performed By: #### L 500.2500, L100.0100 ####[facility] [address] [place], [address] EST GFR Normal >60 [facility] Comment on above: Result Comment: Canc elled via OM: Order cancelled - Patient discharged Performed By: #### L 500.2500, L100.0100 ####[facility] [address] [place], [address] EST GFR - AA Normal >60 [facility] Comment on above: Result Comment: Canc elled via OM: Order cancelled - Patient discharged Performed By: #### L 500.2500, L100.0100 ####[facility] [address] [place], [address] GAP Normal 5-15 [facility] Comment on above: Result Comment: Canc elled via OM: Order cancelled - Patient discharged Performed By: #### L 500.2500, L100.0100 ####[facility] [address] [place], [address] GLU Normal 74-106 [facility] Comment on above: Result Comment: Canc elled via OM: Order cancelled - Patient discharged Performed By: #### L 500.2500, L100.0100 ####[facility] [address] [place], [address] Potassium Normal 3.5-5.1 [facility] Comment on above: Result Comment: Canc elled via OM: Order cancelled - Patient discharged Performed By: #### L 500.2500, L100.0100 ####[facility] [address] [place], [address] Basic Metabolic Profile (BMP) Normal 136-145 [facility] Comment on above: Result Comment: Canc elled via OM: Order cancelled - Patient discharged Performed By: #### L 500.2500, L100.0100 ####[facility] [address] [place], [address] CBC W/Diff, Automatedon 08-2 8-2024 Absolute Neut Normal 2.0-7.7 [facility] Comment on above: Result Comment: Canc elled via OM: Order cancelled - Patient discharged Performed By: #### L 500.2500, L100.0100 ####[facility] [address] [place], [address] HCT Normal 40-54 [facility] Comment on above: Result Comment: Canc elled via OM: Order cancelled - Patient discharged Performed By: #### L 500.2500, L100.0100 ####[facility] [address] [place], [address] HGB Normal 13.0-16.5 [facility] Comment on above: Result Comment: Canc elled via OM: Order cancelled - Patient discharged Performed By: #### L 500.2500, L100.0100 ####[facility] [address] [place], [address] MCH Normal 27.0-32.0 [facility] Comment on above: Result Comment: Canc elled via OM: Order cancelled - Patient discharged Performed By: #### L 500.2500, L100.0100 ####[facility] [address] [place], [address] MCHC Normal 32-36 [facility] Comment on above: Result Comment: Canc elled via OM: Order cancelled - Patient discharged Performed By: #### L 500.2500, L100.0100 ####[facility] [address] [place], [address] MCV Normal 80-94 [facility] Comment on above: Result Comment: Canc elled via OM: Order cancelled - Patient discharged Performed By: #### L 500.2500, L100.0100 ####[facility] [address] [place], [address] NEUT% Normal 47-70 [facility] Comment on above: Result Comment: Canc elled via OM: Order cancelled - Patient discharged Performed By: #### L 500.2500, L100.0100 ####[facility] [address] [place], [address] PLT Normal 150-450 [facility] Comment on above: Result Comment: Canc elled via OM: Order cancelled - Patient discharged Performed By: #### L 500.2500, L100.0100 ####[facility] [address] [place], [address] RBC Normal 4.6-6.2 [facility] Comment on above: Result Comment: Canc elled via OM: Order cancelled - Patient discharged Performed By: #### L 500.2500, L100.0100 ####[facility] [address] [place], [address] RDW CV Normal 11.6-14.6 [facility] Comment on above: Result Comment: Canc elled via OM: Order cancelled - Patient discharged Performed By: #### L 500.2500, L100.0100 ####[facility] [address] [place], [address] RDW SD Normal 35.1-43.9 [facility] Comment on above: Result Comment: Canc elled via OM: Order cancelled - Patient discharged Performed By: #### L 500.2500, L100.0100 ####[facility] [address] [place], [address] WBC Normal 4.4-11.0 [facility] Comment on above: Result Comment: Canc elled via OM: Order cancelled - Patient discharged Performed By: #### L 500.2500, L100.0100 ####[facility] [address] [place], [address] Internal Medicine Office Vis iton 10-07-2023 Internal Medicine Office Visit Normal [facility] Basic Metabolic Profile (BMP )on 10-06-2023 BUN Normal 7-18 [facility] Comment on above: Result Comment: Canc elled via OM: Order cancelled - Patient discharged Performed By: #### L 500.2500, L100.0100 ####[facility] [address] [place], [address] BUN/CRE Normal 10-20 [facility] Comment on above: Result Comment: Canc elled via OM: Order cancelled - Patient discharged Performed By: #### L 500.2500, L100.0100 ####[facility] [address] [place], [address] CA,Total Normal 8.5-10.1 [facility] Comment on above: Result Comment: Canc elled via OM: Order cancelled - Patient discharged Performed By: #### L 500.2500, L100.0100 ####[facility] [address] [place], [address] CL Normal 98-107 [facility] Comment on above: Result Comment: Canc elled via OM: Order cancelled - Patient discharged Performed By: #### L 500.2500, L100.0100 ####[facility] [address] [place], [address] CO2 Normal 21.0-32.0 [facility] Comment on above: Result Comment: Canc elled via OM: Order cancelled - Patient discharged Performed By: #### L 500.2500, L100.0100 ####[facility] [address] [place], [address] CREAT,SERUM Normal 0.70-1.30 [facility] Comment on above: Result Comment: Canc elled via OM: Order cancelled - Patient discharged Performed By: #### L 500.2500, L100.0100 ####[facility] [address] [place], [address] EST GFR Normal >60 [facility] Comment on above: Result Comment: Canc elled via OM: Order cancelled - Patient discharged Performed By: #### L 500.2500, L100.0100 ####[facility] [address] [place], [address] EST GFR - AA Normal >60 [facility] Comment on above: Result Comment: Canc elled via OM: Order cancelled - Patient discharged Performed By: #### L 500.2500, L100.0100 ####[facility] [address] [place], [address] GAP Normal 5-15 [facility] Comment on above: Result Comment: Canc elled via OM: Order cancelled - Patient discharged Performed By: #### L 500.2500, L100.0100 ####[facility] [address] [place], [address] GLU Normal 74-106 [facility] Comment on above: Result Comment: Canc elled via OM: Order cancelled - Patient discharged Performed By: #### L 500.2500, L100.0100 ####[facility] [address] [place], [address] Potassium Normal 3.5-5.1 [facility] Comment on above: Result Comment: Canc elled via OM: Order cancelled - Patient discharged Performed By: #### L 500.2500, L100.0100 ####[facility] [address] [place], [address] Basic Metabolic Profile (BMP) Normal 136-145 [facility] Comment on above: Result Comment: Canc elled via OM: Order cancelled - Patient discharged Performed By: #### L 500.2500, L100.0100 ####[facility] [address] [place], [address] CBC W/Diff, Automatedon 08-2 Absolute Neut Normal 2.0-7.7 [facility] Comment on above: Result Comment: Canc elled via OM: Order cancelled - Patient discharged Performed By: #### L 500.2500, L100.0100 ####[facility] [address] [place], [address] HCT Normal 40-54 [facility] Comment on above: Result Comment: Canc elled via OM: Order cancelled - Patient discharged Performed By: #### L 500.2500, L100.0100 ####[facility] [address] [place], [address] HGB Normal 13.0-16.5 [facility] Comment on above: Result Comment: Canc elled via OM: Order cancelled - Patient discharged Performed By: #### L 500.2500, L100.0100 ####[facility] [address] [place], [address] MCH Normal 27.0-32.0 [facility] Comment on above: Result Comment: Canc elled via OM: Order cancelled - Patient discharged Performed By: #### L 500.2500, L100.0100 ####[facility] [address] [place], [address] MCHC Normal 32-36 [facility] Comment on above: Result Comment: Canc elled via OM: Order cancelled - Patient discharged Performed By: #### L 500.2500, L100.0100 ####[facility] [address] [place], [address] MCV Normal 80-94 [facility] Comment on above: Result Comment: Canc elled via OM: Order cancelled - Patient discharged Performed By: #### L 500.2500, L100.0100 ####[facility] [address] [place], [address] NEUT% Normal 47-70 [facility] Comment on above: Result Comment: Canc elled via OM: Order cancelled - Patient discharged Performed By: #### L 500.2500, L100.0100 ####[facility] [address] [place], [address] PLT Normal 150-450 [facility] Comment on above: Result Comment: Canc elled via OM: Order cancelled - Patient discharged Performed By: #### L 500.2500, L100.0100 ####[facility] [address] [place], [address] RBC Normal 4.6-6.2 [facility] Comment on above: Result Comment: Canc elled via OM: Order cancelled - Patient discharged Performed By: #### L 500.2500, L100.0100 ####[facility] [address] [place], [address] RDW CV Normal 11.6-14.6 [facility] Comment on above: Result Comment: Canc elled via OM: Order cancelled - Patient discharged Performed By: #### L 500.2500, L100.0100 ####[facility] [address] [place], [address] RDW SD Normal 35.1-43.9 [facility] Comment on above: Result Comment: Canc elled via OM: Order cancelled - Patient discharged Performed By: #### L 500.2500, L100.0100 ####[facility] [address] [place], [address] WBC Normal 4.4-11.0 [facility] Comment on above: Result Comment: Canc elled via OM: Order cancelled - Patient discharged Performed By: #### L 500.2500, L100.0100 ####[facility] [address] [place], [address] Basic Metabolic Profile (BMP )on 10-05-2023 BUN Normal 7-18 [facility] Comment on above: Result Comment: Canc elled via OM: Order cancelled - Patient discharged Performed By: #### L 500.2500, L100.0100 ####[facility] [address] [place], [address] BUN/CRE Normal 10-20 [facility] Comment on above: Result Comment: Canc elled via OM: Order cancelled - Patient discharged Performed By: #### L 500.2500, L100.0100 ####[facility] [address] [place], [address] CA,Total Normal 8.5-10.1 [facility] Comment on above: Result Comment: Canc elled via OM: Order cancelled - Patient discharged Performed By: #### L 500.2500, L100.0100 ####[facility] [address] [place], [address] CL Normal 98-107 [facility] Comment on above: Result Comment: Canc elled via OM: Order cancelled - Patient discharged Performed By: #### L 500.2500, L100.0100 ####[facility] [address] [place], [address] CO2 Normal 21.0-32.0 [facility] Comment on above: Result Comment: Canc elled via OM: Order cancelled - Patient discharged Performed By: #### L 500.2500, L100.0100 ####[facility] [address] [place], [address] CREAT,SERUM Normal 0.70-1.30 [facility] Comment on above: Result Comment: Canc elled via OM: Order cancelled - Patient discharged Performed By: #### L 500.2500, L100.0100 ####[facility] [address] [place], [address] EST GFR Normal >60 [facility] Comment on above: Result Comment: Canc elled via OM: Order cancelled - Patient discharged Performed By: #### L 500.2500, L100.0100 ####[facility] [address] [place], [address] EST GFR - AA Normal >60 [facility] Comment on above: Result Comment: Canc elled via OM: Order cancelled - Patient discharged Performed By: #### L 500.2500, L100.0100 ####[facility] [address] [place], [address] GAP Normal 5-15 [facility] Comment on above: Result Comment: Canc elled via OM: Order cancelled - Patient discharged Performed By: #### L 500.2500, L100.0100 ####[facility] [address] [place], [address] GLU Normal 74-106 [facility] Comment on above: Result Comment: Canc elled via OM: Order cancelled - Patient discharged Performed By: #### L 500.2500, L100.0100 ####[facility] [address] [place], [address] Potassium Normal 3.5-5.1 [facility] Comment on above: Result Comment: Canc elled via OM: Order cancelled - Patient discharged Performed By: #### L 500.2500, L100.0100 ####[facility] [address] [place], [address] Basic Metabolic Profile (BMP) Normal 136-145 [facility] Comment on above: Result Comment: Canc elled via OM: Order cancelled - Patient discharged Performed By: #### L 500.2500, L100.0100 ####[facility] [address] [place], [address] CBC W/Diff, Automatedon 08-2 Absolute Neut Normal 2.0-7.7 [facility] Comment on above: Result Comment: Canc elled via OM: Order cancelled - Patient discharged Performed By: #### L 500.2500, L100.0100 ####[facility] [address] [place], [address] HCT Normal 40-54 [facility] Comment on above: Result Comment: Canc elled via OM: Order cancelled - Patient discharged Performed By: #### L 500.2500, L100.0100 ####[facility] [address] [place], [address] HGB Normal 13.0-16.5 [facility] Comment on above: Result Comment: Canc elled via OM: Order cancelled - Patient discharged Performed By: #### L 500.2500, L100.0100 ####[facility] [address] [place], [address] MCH Normal 27.0-32.0 [facility] Comment on above: Result Comment: Canc elled via OM: Order cancelled - Patient discharged Performed By: #### L 500.2500, L100.0100 ####[facility] [address] [place], [address] MCHC Normal 32-36 [facility] Comment on above: Result Comment: Canc elled via OM: Order cancelled - Patient discharged Performed By: #### L 500.2500, L100.0100 ####[facility] [address] [place], [address] MCV Normal 80-94 [facility] Comment on above: Result Comment: Canc elled via OM: Order cancelled - Patient discharged Performed By: #### L 500.2500, L100.0100 ####[facility] [address] [place], [address] NEUT% Normal 47-70 [facility] Comment on above: Result Comment: Canc elled via OM: Order cancelled - Patient discharged Performed By: #### L 500.2500, L100.0100 ####[facility] [address] [place], [address] PLT Normal 150-450 [facility] Comment on above: Result Comment: Canc elled via OM: Order cancelled - Patient discharged Performed By: #### L 500.2500, L100.0100 ####[facility] [address] [place], [address] RBC Normal 4.6-6.2 [facility] Comment on above: Result Comment: Canc elled via OM: Order cancelled - Patient discharged Performed By: #### L 500.2500, L100.0100 ####[facility] [address] [place], [address] RDW CV Normal 11.6-14.6 [facility] Comment on above: Result Comment: Canc elled via OM: Order cancelled - Patient discharged Performed By: #### L 500.2500, L100.0100 ####[facility] [address] [place], [address] RDW SD Normal 35.1-43.9 [facility] Comment on above: Result Comment: Canc elled via OM: Order cancelled - Patient discharged Performed By: #### L 500.2500, L100.0100 ####[facility] [address] [place], [address] WBC Normal 4.4-11.0 [facility] Comment on above: Result Comment: Canc elled via OM: Order cancelled - Patient discharged Performed By: #### L 500.2500, L100.0100 ####[facility] [address] [place], [address] Basic Metabolic Profile (BMP )on 10-04-2023 BUN Normal 7-18 [facility] Comment on above: Result Comment: Canc elled via OM: Order cancelled - Patient discharged Performed By: #### L 100.0100, L500.2500 ####[facility] [address] [place], [address] BUN/CRE Normal 10-20 [facility] Comment on above: Result Comment: Canc elled via OM: Order cancelled - Patient discharged Performed By: #### L 100.0100, L500.2500 ####[facility] [address] [place], [address] CA,Total Normal 8.5-10.1 [facility] Comment on above: Result Comment: Canc elled via OM: Order cancelled - Patient discharged Performed By: #### L 100.0100, L500.2500 ####[facility] [address] [facility] [address] CL Normal 98-107 [facility] Comment on above: Result Comment: Canc elled via OM: Order cancelled - Patient discharged Performed By: #### L 100.0100, L500.2500 ####[facility] [address] [facility] [address] CO2 Normal 21.0-32.0 [facility] Comment on above: Result Comment: Canc elled via OM: Order cancelled - Patient discharged Performed By: #### L 100.0100, L500.2500 ####[facility] [address] [place], [address] CREAT,SERUM Normal 0.70-1.30 [facility] Comment on above: Result Comment: Canc elled via OM: Order cancelled - Patient discharged Performed By: #### L 100.0100, L500.2500 ####[facility] [address] [facility] [address] EST GFR Normal >60 [facility] Comment on above: Result Comment: Canc elled via OM: Order cancelled - Patient discharged Performed By: #### L 100.0100, L500.2500 ####[facility] [address] [place], [address] EST GFR - AA Normal >60 [facility] Comment on above: Result Comment: Canc elled via OM: Order cancelled - Patient discharged Performed By: #### L 100.0100, L500.2500 ####[facility] [address] [place], [address] GAP Normal 5-15 [facility] Comment on above: Result Comment: Canc elled via OM: Order cancelled - Patient discharged Performed By: #### L 100.0100, L500.2500 ####[facility] [address] [place], [address] GLU Normal 74-106 [facility] Comment on above: Result Comment: Canc elled via OM: Order cancelled - Patient discharged Performed By: #### L 100.0100, L500.2500 ####[facility] [address] [place], [address] Potassium Normal 3.5-5.1 [facility] Comment on above: Result Comment: Canc elled via OM: Order cancelled - Patient discharged Performed By: #### L 100.0100, L500.2500 ####[facility] [address] [place], [address] Basic Metabolic Profile (BMP) Normal 136-145 [facility] Comment on above: Result Comment: Canc elled via OM: Order cancelled - Patient discharged Performed By: #### L 100.0100, L500.2500 ####[facility] [address] [place], [address] CBC W/Diff, Automatedon 08-2 Absolute Neut Normal 2.0-7.7 [facility] Comment on above: Result Comment: Canc elled via OM: Order cancelled - Patient discharged Performed By: #### L 100.0100, L500.2500 ####[facility] [address] [place], [address] HCT Normal 40-54 [facility] Comment on above: Result Comment: Canc elled via OM: Order cancelled - Patient discharged Performed By: #### L 100.0100, L500.2500 ####[facility] [address] [place], [address] HGB Normal 13.0-16.5 [facility] Comment on above: Result Comment: Canc elled via OM: Order cancelled - Patient discharged Performed By: #### L 100.0100, L500.2500 ####[facility] [address] [place], [address] MCH Normal 27.0-32.0 [facility] Comment on above: Result Comment: Canc elled via OM: Order cancelled - Patient discharged Performed By: #### L 100.0100, L500.2500 ####[facility] [address] [place], [address] MCHC Normal 32-36 [facility] Comment on above: Result Comment: Canc elled via OM: Order cancelled - Patient discharged Performed By: #### L 100.0100, L500.2500 ####[facility] [address] [place], [address] MCV Normal 80-94 [facility] Comment on above: Result Comment: Canc elled via OM: Order cancelled - Patient discharged Performed By: #### L 100.0100, L500.2500 ####[facility] [address] [place], [address] NEUT% Normal 47-70 [facility] Comment on above: Result Comment: Canc elled via OM: Order cancelled - Patient discharged Performed By: #### L 100.0100, L500.2500 ####[facility] [address] [place], [address] PLT Normal 150-450 [facility] Comment on above: Result Comment: Canc elled via OM: Order cancelled - Patient discharged Performed By: #### L 100.0100, L500.2500 ####[facility] [address] [place], [address] RBC Normal 4.6-6.2 [facility] Comment on above: Result Comment: Canc elled via OM: Order cancelled - Patient discharged Performed By: #### L 100.0100, L500.2500 ####[facility] [address] [place], [address] RDW CV Normal 11.6-14.6 [facility] Comment on above: Result Comment: Canc elled via OM: Order cancelled - Patient discharged Performed By: #### L 100.0100, L500.2500 ####[facility] [address] [place], [address] RDW SD Normal 35.1-43.9 [facility] Comment on above: Result Comment: Canc elled via OM: Order cancelled - Patient discharged Performed By: #### L 100.0100, L500.2500 ####[facility] [address] [place], [address] WBC Normal 4.4-11.0 [facility] Comment on above: Result Comment: Canc elled via OM: Order cancelled - Patient discharged Performed By: #### L 100.0100, L500.2500 ####[facility] [address] [place], [address] Culture, Blood (WB)on 2023 CUB Blood cultures x2 fr om two different sites No growth in 5 days. Normal [facility] Comment on above: Performed By: #### M 200.1000, L501.3620, L300.4310 ####[facility] [address] [place], [address] Basic Metabolic Profile (BMP )on 10-03-2023 BUN Normal 7-18 [facility] Comment on above: Result Comment: Canc elled via OM: Order cancelled - Patient discharged Performed By: #### L 100.0100, L500.2500 ####[facility] [address] [place], [address] BUN/CRE Normal 10-20 [facility] Comment on above: Result Comment: Canc elled via OM: Order cancelled - Patient discharged Performed By: #### L 100.0100, L500.2500 ####[facility] [address] [place], [address] CA,Total Normal 8.5-10.1 [facility] Comment on above: Result Comment: Canc elled via OM: Order cancelled - Patient discharged Performed By: #### L 100.0100, L500.2500 ####[facility] [address] [place], [address] CL Normal 98-107 [facility] Comment on above: Result Comment: Canc elled via OM: Order cancelled - Patient discharged Performed By: #### L 100.0100, L500.2500 ####[facility] [address] [place], [address] CO2 Normal 21.0-32.0 [facility] Comment on above: Result Comment: Canc elled via OM: Order cancelled - Patient discharged Performed By: #### L 100.0100, L500.2500 ####[facility] [address] [place], [address] CREAT,SERUM Normal 0.70-1.30 [facility] Comment on above: Result Comment: Canc elled via OM: Order cancelled - Patient discharged Performed By: #### L 100.0100, L500.2500 ####[facility] [address] [place], [address] EST GFR Normal >60 [facility] Comment on above: Result Comment: Canc elled via OM: Order cancelled - Patient discharged Performed By: #### L 100.0100, L500.2500 ####[facility] [address] [place], [address] EST GFR - AA Normal >60 [facility] Comment on above: Result Comment: Canc elled via OM: Order cancelled - Patient discharged Performed By: #### L 100.0100, L500.2500 ####[facility] [address] [place], [address] GAP Normal 5-15 [facility] Comment on above: Result Comment: Canc elled via OM: Order cancelled - Patient discharged Performed By: #### L 100.0100, L500.2500 ####[facility] [address] [place], [address] GLU Normal 74-106 [facility] Comment on above: Result Comment: Canc elled via OM: Order cancelled - Patient discharged Performed By: #### L 100.0100, L500.2500 ####[facility] [address] [place], [address] Potassium Normal 3.5-5.1 [facility] Comment on above: Result Comment: Canc elled via OM: Order cancelled - Patient discharged Performed By: #### L 100.0100, L500.2500 ####[facility] [address] [place], [address] Basic Metabolic Profile (BMP) Normal 136-145 [facility] Comment on above: Result Comment: Canc elled via OM: Order cancelled - Patient discharged Performed By: #### L 100.0100, L500.2500 ####[facility] [address] [place], [address] CBC W/Diff, Automatedon 08- Absolute Neut Normal 2.0-7.7 [facility] Comment on above: Result Comment: Canc elled via OM: Order cancelled - Patient discharged Performed By: #### L 100.0100, L500.2500 ####[facility] [address] [place], [address] HCT Normal 40-54 [facility] Comment on above: Result Comment: Canc elled via OM: Order cancelled - Patient discharged Performed By: #### L 100.0100, L500.2500 ####[facility] [address] [place], [address] HGB Normal 13.0-16.5 [facility] Comment on above: Result Comment: Canc elled via OM: Order cancelled - Patient discharged Performed By: #### L 100.0100, L500.2500 ####[facility] [address] [place], [address] MCH Normal 27.0-32.0 [facility] Comment on above: Result Comment: Canc elled via OM: Order cancelled - Patient discharged Performed By: #### L 100.0100, L500.2500 ####[facility] [address] [place], [address] MCHC Normal 32-36 [facility] Comment on above: Result Comment: Canc elled via OM: Order cancelled - Patient discharged Performed By: #### L 100.0100, L500.2500 ####[facility] [address] [place], [address] MCV Normal 80-94 [facility] Comment on above: Result Comment: Canc elled via OM: Order cancelled - Patient discharged Performed By: #### L 100.0100, L500.2500 ####[facility] [address] [place], [address] NEUT% Normal 47-70 [facility] Comment on above: Result Comment: Canc elled via OM: Order cancelled - Patient discharged Performed By: #### L 100.0100, L500.2500 ####[facility] [address] [place], [address] PLT Normal 150-450 [facility] Comment on above: Result Comment: Canc elled via OM: Order cancelled - Patient discharged Performed By: #### L 100.0100, L500.2500 ####[facility] [address] [place], [address] RBC Normal 4.6-6.2 [facility] Comment on above: Result Comment: Canc elled via OM: Order cancelled - Patient discharged Performed By: #### L 100.0100, L500.2500 ####[facility] [address] [place], [address] RDW CV Normal 11.6-14.6 [facility] Comment on above: Result Comment: Canc elled via OM: Order cancelled - Patient discharged Performed By: #### L 100.0100, L500.2500 ####[facility] [address] [place], [address] RDW SD Normal 35.1-43.9 [facility] Comment on above: Result Comment: Canc elled via OM: Order cancelled - Patient discharged Performed By: #### L 100.0100, L500.2500 ####[facility] [address] [place], [address] WBC Normal 4.4-11.0 [facility] Comment on above: Result Comment: Canc elled via OM: Order cancelled - Patient discharged Performed By: #### L 100.0100, L500.2500 ####[facility] [address] [place], [address] Basic Metabolic Profile (BMP )on 10-02-2023 BUN Normal 7-18 [facility] Comment on above: Result Comment: Canc elled via OM: Order cancelled - Patient discharged Performed By: #### L 100.0100, L500.2500 ####[facility] [address] [place], [address] BUN/CRE Normal 10-20 [facility] Comment on above: Result Comment: Canc elled via OM: Order cancelled - Patient discharged Performed By: #### L 100.0100, L500.2500 ####[facility] [address] [place], [address] CA,Total Normal 8.5-10.1 [facility] Comment on above: Result Comment: Canc elled via OM: Order cancelled - Patient discharged Performed By: #### L 100.0100, L500.2500 ####[facility] [address] [place], [address] CL Normal 98-107 [facility] Comment on above: Result Comment: Canc elled via OM: Order cancelled - Patient discharged Performed By: #### L 100.0100, L500.2500 ####[facility] [address] [place], [address] CO2 Normal 21.0-32.0 [facility] Comment on above: Result Comment: Canc elled via OM: Order cancelled - Patient discharged Performed By: #### L 100.0100, L500.2500 ####[facility] [address] [place], [address] CREAT,SERUM Normal 0.70-1.30 [facility] Comment on above: Result Comment: Canc elled via OM: Order cancelled - Patient discharged Performed By: #### L 100.0100, L500.2500 ####[facility] [address] [place], [address] EST GFR Normal >60 [facility] Comment on above: Result Comment: Canc elled via OM: Order cancelled - Patient discharged Performed By: #### L 100.0100, L500.2500 ####[facility] [address] [place], [address] EST GFR - AA Normal >60 [facility] Comment on above: Result Comment: Canc elled via OM: Order cancelled - Patient discharged Performed By: #### L 100.0100, L500.2500 ####[facility] [address] [place], [address] GAP Normal 5-15 [facility] Comment on above: Result Comment: Canc elled via OM: Order cancelled - Patient discharged Performed By: #### L 100.0100, L500.2500 ####[facility] [address] [place], [address] GLU Normal 74-106 [facility] Comment on above: Result Comment: Canc elled via OM: Order cancelled - Patient discharged Performed By: #### L 100.0100, L500.2500 ####[facility] [address] [place], [address] Potassium Normal 3.5-5.1 [facility] Comment on above: Result Comment: Canc elled via OM: Order cancelled - Patient discharged Performed By: #### L 100.0100, L500.2500 ####[facility] [address] [place], [address] Basic Metabolic Profile (BMP) Normal 136-145 [facility] Comment on above: Result Comment: Canc elled via OM: Order cancelled - Patient discharged Performed By: #### L 100.0100, L500.2500 ####[facility] [address] [place], [address] CBC W/Diff, Automatedon 08-2 Absolute Neut Normal 2.0-7.7 [facility] Comment on above: Result Comment: Canc elled via OM: Order cancelled - Patient discharged Performed By: #### L 100.0100, L500.2500 ####[facility] [address] [place], [address] HCT Normal 40-54 [facility] Comment on above: Result Comment: Canc elled via OM: Order cancelled - Patient discharged Performed By: #### L 100.0100, L500.2500 ####[facility] [address] [place], [address] HGB Normal 13.0-16.5 [facility] Comment on above: Result Comment: Canc elled via OM: Order cancelled - Patient discharged Performed By: #### L 100.0100, L500.2500 ####[facility] [address] [place], [address] MCH Normal 27.0-32.0 [facility] Comment on above: Result Comment: Canc elled via OM: Order cancelled - Patient discharged Performed By: #### L 100.0100, L500.2500 ####[facility] [address] [place], [address] MCHC Normal 32-36 [facility] Comment on above: Result Comment: Canc elled via OM: Order cancelled - Patient discharged Performed By: #### L 100.0100, L500.2500 ####[facility] [address] [place], [address] MCV Normal 80-94 [facility] Comment on above: Result Comment: Canc elled via OM: Order cancelled - Patient discharged Performed By: #### L 100.0100, L500.2500 ####[facility] [address] [place], [address] NEUT% Normal 47-70 [facility] Comment on above: Result Comment: Canc elled via OM: Order cancelled - Patient discharged Performed By: #### L 100.0100, L500.2500 ####[facility] [address] [place], [address] PLT Normal 150-450 [facility] Comment on above: Result Comment: Canc elled via OM: Order cancelled - Patient discharged Performed By: #### L 100.0100, L500.2500 ####[facility] [address] [place], [address] RBC Normal 4.6-6.2 [facility] Comment on above: Result Comment: Canc elled via OM: Order cancelled - Patient discharged Performed By: #### L 100.0100, L500.2500 ####[facility] [address] [place], [address] RDW CV Normal 11.6-14.6 [facility] Comment on above: Result Comment: Canc elled via OM: Order cancelled - Patient discharged Performed By: #### L 100.0100, L500.2500 ####[facility] [address] [place], [address] RDW SD Normal 35.1-43.9 [facility] Comment on above: Result Comment: Canc elled via OM: Order cancelled - Patient discharged Performed By: #### L 100.0100, L500.2500 ####[facility] [address] [place], [address] WBC Normal 4.4-11.0 [facility] Comment on above: Result Comment: Canc elled via OM: Order cancelled - Patient discharged Performed By: #### L 100.0100, L500.2500 ####[facility] [address] [place], [address] Basic Metabolic Profile (BMP )on 10-01-2023 BUN Normal 7-18 [facility] Comment on above: Result Comment: Canc elled via OM: Order cancelled - Patient discharged Performed By: #### L 100.0100, L500.2500 ####[facility] [address] [place], [address] BUN/CRE Normal 10-20 [facility] Comment on above: Result Comment: Canc elled via OM: Order cancelled - Patient discharged Performed By: #### L 100.0100, L500.2500 ####[facility] [address] [place], [address] CA,Total Normal 8.5-10.1 [facility] Comment on above: Result Comment: Canc elled via OM: Order cancelled - Patient discharged Performed By: #### L 100.0100, L500.2500 ####[facility] [address] [place], [address] CL Normal 98-107 [facility] Comment on above: Result Comment: Canc elled via OM: Order cancelled - Patient discharged Performed By: #### L 100.0100, L500.2500 ####[facility] [address] [place], [address] CO2 Normal 21.0-32.0 [facility] Comment on above: Result Comment: Canc elled via OM: Order cancelled - Patient discharged Performed By: #### L 100.0100, L500.2500 ####[facility] [address] [place], [address] CREAT,SERUM Normal 0.70-1.30 [facility] Comment on above: Result Comment: Canc elled via OM: Order cancelled - Patient discharged Performed By: #### L 100.0100, L500.2500 ####[facility] [address] [place], [address] EST GFR Normal >60 [facility] Comment on above: Result Comment: Canc elled via OM: Order cancelled - Patient discharged Performed By: #### L 100.0100, L500.2500 ####[facility] [address] [place], [address] EST GFR - AA Normal >60 [facility] Comment on above: Result Comment: Canc elled via OM: Order cancelled - Patient discharged Performed By: #### L 100.0100, L500.2500 ####[facility] [address] [place], [address] GAP Normal 5-15 [facility] Comment on above: Result Comment: Canc elled via OM: Order cancelled - Patient discharged Performed By: #### L 100.0100, L500.2500 ####[facility] [address] [place], [address] GLU Normal 74-106 [facility] Comment on above: Result Comment: Canc elled via OM: Order cancelled - Patient discharged Performed By: #### L 100.0100, L500.2500 ####[facility] [address] [place], [address] Potassium Normal 3.5-5.1 [facility] Comment on above: Result Comment: Canc elled via OM: Order cancelled - Patient discharged Performed By: #### L 100.0100, L500.2500 ####[facility] [address] [place], [address] Basic Metabolic Profile (BMP) Normal 136-145 [facility] Comment on above: Result Comment: Canc elled via OM: Order cancelled - Patient discharged Performed By: #### L 100.0100, L500.2500 ####[facility] [address] [place], [address] CBC W/Diff, Automatedon 08-2 -2023 Absolute Neut Normal 2.0-7.7 [facility] Comment on above: Result Comment: Canc elled via OM: Order cancelled - Patient discharged Performed By: #### L 100.0100, L500.2500 ####[facility] [address] [place], [address] HCT Normal 40-54 [facility] Comment on above: Result Comment: Canc elled via OM: Order cancelled - Patient discharged Performed By: #### L 100.0100, L500.2500 ####[facility] [address] [place], [address] HGB Normal 13.0-16.5 [facility] Comment on above: Result Comment: Canc elled via OM: Order cancelled - Patient discharged Performed By: #### L 100.0100, L500.2500 ####[facility] [address] [place], [address] MCH Normal 27.0-32.0 [facility] Comment on above: Result Comment: Canc elled via OM: Order cancelled - Patient discharged Performed By: #### L 100.0100, L500.2500 ####[facility] [address] [place], [address] MCHC Normal 32-36 [facility] Comment on above: Result Comment: Canc elled via OM: Order cancelled - Patient discharged Performed By: #### L 100.0100, L500.2500 ####[facility] [address] [place], [address] MCV Normal 80-94 [facility] Comment on above: Result Comment: Canc elled via OM: Order cancelled - Patient discharged Performed By: #### L 100.0100, L500.2500 ####[facility] [address] [place], [address] NEUT% Normal 47-70 [facility] Comment on above: Result Comment: Canc elled via OM: Order cancelled - Patient discharged Performed By: #### L 100.0100, L500.2500 ####[facility] [address] [place], [address] PLT Normal 150-450 [facility] Comment on above: Result Comment: Canc elled via OM: Order cancelled - Patient discharged Performed By: #### L 100.0100, L500.2500 ####[facility] [address] [place], [address] RBC Normal 4.6-6.2 [facility] Comment on above: Result Comment: Canc elled via OM: Order cancelled - Patient discharged Performed By: #### L 100.0100, L500.2500 ####[facility] [address] [place], [address] RDW CV Normal 11.6-14.6 [facility] Comment on above: Result Comment: Canc elled via OM: Order cancelled - Patient discharged Performed By: #### L 100.0100, L500.2500 ####[facility] [address] [place], [address] RDW SD Normal 35.1-43.9 [facility] Comment on above: Result Comment: Canc elled via OM: Order cancelled - Patient discharged Performed By: #### L 100.0100, L500.2500 ####[facility] [address] [place], [address] WBC Normal 4.4-11.0 [facility] Comment on above: Result Comment: Canc elled via OM: Order cancelled - Patient discharged Performed By: #### L 100.0100, L500.2500 ####[facility] [address] [place], [address] Prothrombin Time w/INRon INR Normal [facility] Comment on above: Result Comment: Canc elled via OM: Order cancelled - Patient discharged Performed By: #### L 300.3900 ####[facility] [address] [place], [address] PROTIME Normal 11.7-14.9 [facility] Comment on above: Result Comment: Canc elled via OM: Order cancelled - Patient discharged Performed By: #### L 300.3900 ####[facility] [address] [place], [address] Basic Metabolic Profile (BMP )on 09-30-2023 BUN/CRE 10.8 RATIO Normal 10-20 [facility] Comment on above: Performed By: #### L 100.0100, L500.2500 ####[facility] [address] [place], [address] CA,Total 8.7 mg/dL Normal 8.5-10.1 [facility] Comment on above: Performed By: #### L 100.0100, L500.2500 ####[facility] [address] [place], [address] Chloride [Moles/Vol] 107 mmol/L Normal 98-107 [facility] Comment on above: Performed By: #### L 100.0100, L500.2500 ####[facility] [address] [place], [address] CO2 [Moles/Vol] 24.0 mmol/L Normal 21.0-32.0 [facility] Comment on above: Performed By: #### L 100.0100, L500.2500 ####[facility] [address] [place], [address] Creatinine [Mass/Vol] 1.02 mg/dL Normal 0.70-1.30 [facility] Comment on above: Result Comment: The validity of the calculated GFR GFRAA in patients over70 years has not been determined. Clinical correlation isessential. Performed By: #### L 100.0100, L500.2500 ####[facility] [address] [place], [address] ECRCL 70.43 ml/min Normal [facility] Comment on above: Performed By: #### L 100.0100, L500.2500 ####[facility] [address] [place], [address] EST GFR - AA 91 mL/min Normal >60 [facility] Comment on above: Result Comment: Afri can [place] GFR Calc Performed By: #### L 100.0100, L500.2500 ####[facility] [address] [place], [address] GAP 6 Normal 5-15 [facility] Comment on above: Performed By: #### L 100.0100, L500.2500 ####[facility] [address] [place], [address] GFR/1.73 sq M.predicted among non-blacks MDRD (S/P/Bld) [Vol rate/Area] 75 mL/min/{1.73_m2} Normal >60 [facility] Comment on above: Result Comment: Non- GFR Calc Performed By: #### L 100.0100, L500.2500 ####[facility] [address] [place], [address] Glucose [Mass/Vol] 130 mg/dL High 74-106 [facility] Comment on above: Result Comment: Fast ing Glucose result greater than or equal to 126 mg/dLsuggests DIABETES MELLITUS per A.D.A. criteria. Performed By: #### L 100.0100, L500.2500 ####[facility] [address] [place], [address] Potassium [Moles/Vol] 3.8 mmol/L Normal 3.5-5.1 [facility] Comment on above: Performed By: #### L 100.0100, L500.2500 ####[facility] [address] [place], [address] Sodium [Moles/Vol] 137 mmol/L Normal 136-145 [facility] Comment on above: Performed By: #### L 100.0100, L500.2500 ####[facility] [address] [place], [address] Urea nitrogen [Mass/Vol] 11 mg/dL Normal 7-18 [facility] Comment on above: Performed By: #### L 100.0100, L500.2500 ####[facility] [address] [place], [address] CBC W/Diff, Automatedon - Absolute Lymph 2.68 X10 3/uL Normal 0.83-4.51 [facility] Comment on above: Performed By: #### L 100.0100, L500.2500 ####[facility] [address] [place], [address] Absolute Neut 3.4 X10 3/uL Normal 2.0-7.7 [facility] Comment on above: Performed By: #### L 100.0100, L500.2500 ####[facility] [address] [place], [address] Basophils/100 WBC (Bld) 0.8 % Normal 0-1 [facility] Comment on above: Performed By: #### L 100.0100, L500.2500 ####[facility] [address] [place], [address] Eosinophils/100 WBC (Bld) 5.1 % High 0-5 [facility] Comment on above: Performed By: #### L 100.0100, L500.2500 ####[facility] [address] [place], [address] Erythrocyte distribution width (RBC) [Ratio] 14.3 % Normal 11.6-14.6 [facility] Comment on above: Performed By: #### L 100.0100, L500.2500 ####[facility] [address] [place], [address] Hematocrit (Bld) [Volume fraction] 38.7 % Low 40-54 [facility] Comment on above: Performed By: #### L 100.0100, L500.2500 ####[facility] [address] [place], [address] Hemoglobin (Bld) [Mass/Vol] 12.7 g/dL Low 13.0-16.5 [facility] Comment on above: Performed By: #### L 100.0100, L500.2500 ####[facility] [address] [place], [address] IG% 1.000 High 0.0-0.9 [facility] Comment on above: Result Comment: IG% - Immature Granulocytes (promyelocytes, myelocytes andmetamyelocytes) > 1% indicates that a LEFT SHIFT is Present. Performed By: #### L 100.0100, L500.2500 ####[facility] [address] [place], [address] Lymphocytes/100 WBC (Bld) 37.6 % Normal 19-41 [facility] Comment on above: Performed By: #### L 100.0100, L500.2500 ####[facility] [address] [place], [address] MCH (RBC) [Entitic mass] 30.5 pg Normal 27.0-32.0 [facility] Comment on above: Performed By: #### L 100.0100, L500.2500 ####[facility] [address] [place], [address] MCHC (RBC) [Mass/Vol] 32.8 g/dL Normal 32-36 [facility] Comment on above: Performed By: #### L 100.0100, L500.2500 ####[facility] [address] [place], [address] MCV (RBC) [Entitic vol] 92.8 fL Normal 80-94 [facility] Comment on above: Performed By: #### L 100.0100, L500.2500 ####[facility] [address] [place], [address] Monocytes/100 WBC (Bld) 7.6 % Normal 0-10 [facility] Comment on above: Performed By: #### L 100.0100, L500.2500 ####[facility] [address] [place], [address] Neutrophils/100 WBC (Bld) 47.9 % Normal 47-70 [facility] Comment on above: Performed By: #### L 100.0100, L500.2500 ####[facility] [address] [place], [address] Nucleated RBC (Bld) [#/Vol] 0 10*3/uL Normal 0-5 [facility] Comment on above: Performed By: #### L 100.0100, L500.2500 ####[facility] [address] [place], [address] Platelet mean volume (Bld) [Entitic vol] 9.5 fL Normal 6.2-12.0 [facility] Comment on above: Performed By: #### L 100.0100, L500.2500 ####[facility] [address] [place], [address] Platelets (Bld) [#/Vol] 289 10*3/uL Normal 150-450 [facility] Comment on above: Performed By: #### L 100.0100, L500.2500 ####[facility] [address] [place], [address] RBC (Bld) [#/Vol] 4.17 10*6/uL Low 4.6-6.2 [facility] Comment on above: Performed By: #### L 100.0100, L500.2500 ####[facility] [address] [place], [address] RDW SD 48.4 fl High 35.1-43.9 [facility] Comment on above: Performed By: #### L 100.0100, L500.2500 ####[facility] [facility] [address] [place], [address] WBC (Bld) [#/Vol] 7.1 10*3/uL Normal 4.4-11.0 [facility] Comment on above: Performed By: #### L 100.0100, L500.2500 ####[facility] [address] [place], [address] Discharge Instructionon 09-10 Discharge Instruction Normal [facility] Prothrombin Time w/INRon INR Coag (PPP) [Relative time] 2.7 {INR} Normal [facility] Comment on above: Performed By: #### L 300.3900 ####[facility] [address] [place], [address] PT Coag (PPP) [Time] 28.4 s High 11.7-14.9 [facility] Comment on above: Performed By: #### L 300.3900 ####[facility] [address] [place], [address] Urine Cultureon 09-30-2023 URC Normal [facility] Comment on above: Performed By: #### M 100.637, M100.2200 ####[facility] [address] [place], [address] Basic Metabolic Profile (BMP )on 09-29-2023 BUN/CRE 9.3 RATIO Low 10-20 [facility] Comment on above: Performed By: #### L 300.3900, L100.0100, L500.2500 ####[facility] [address] [place], [address] CA,Total 8.4 mg/dL Low 8.5-10.1 [facility] Comment on above: Performed By: #### L 300.3900, L100.0100, L500.2500 ####[facility] [address] [place], [address] Chloride [Moles/Vol] 107 mmol/L Normal 98-107 [facility] Comment on above: Performed By: #### L 300.3900, L100.0100, L500.2500 ####[facility] [address] [place], [address] CO2 [Moles/Vol] 23.0 mmol/L Normal 21.0-32.0 [facility] Comment on above: Performed By: #### L 300.3900, L100.0100, L500.2500 ####[facility] [address] [place], [address] Creatinine [Mass/Vol] 1.07 mg/dL Normal 0.70-1.30 [facility] Comment on above: Result Comment: The validity of the calculated GFR GFRAA in patients over70 years has not been determined. Clinical correlation isessential. Performed By: #### L 300.3900, L100.0100, L500.2500 ####[facility] [address] [place], [address] ECRCL 67.14 ml/min Normal [facility] Comment on above: Performed By: #### L 300.3900, L100.0100, L500.2500 ####[facility] [address] [place], [address] EST GFR - AA 86 mL/min Normal >60 [facility] Comment on above: Result Comment: Afri can Zambian GFR Calc Performed By: #### L 300.3900, L100.0100, L500.2500 ####[facility] [address] [place], [address] GAP 7 Normal 5-15 [facility] Comment on above: Performed By: #### L 300.3900, L100.0100, L500.2500 ####[facility] [address] [place], [address] GFR/1.73 sq M.predicted among non-blacks MDRD (S/P/Bld) [Vol rate/Area] 71 mL/min/{1.73_m2} Normal >60 [facility] Comment on above: Result Comment: Non- GFR Calc Performed By: #### L 300.3900, L100.0100, L500.2500 ####[facility] [address] [place], [address] Glucose [Mass/Vol] 109 mg/dL High 74-106 [facility] Comment on above: Result Comment: Fast ing Glucose result from 100 to 125 mg/dLsuggests IMPAIRED HOMEOSTASIS per A.D.A. criteria. Performed By: #### L 300.3900, L100.0100, L500.2500 ####[facility] [address] [place], [address] Potassium [Moles/Vol] 3.8 mmol/L Normal 3.5-5.1 [facility] Comment on above: Performed By: #### L 300.3900, L100.0100, L500.2500 ####[facility] [address] [place], [address] Sodium [Moles/Vol] 137 mmol/L Normal 136-145 [facility] Comment on above: Performed By: #### L 300.3900, L100.0100, L500.2500 ####[facility] [address] [place], [address] Urea nitrogen [Mass/Vol] 10 mg/dL Normal 7-18 [facility] Comment on above: Performed By: #### L 300.3900, L100.0100, L500.2500 ####[facility] [address] [place], [address] Bedside Glucoseon 09-29-2023 FINGERSTICK GLU 111 mg/dL High 74-106 [facility] Comment on above: Result Comment: ASIF AVILA OF PATIENT CARE PER NURSING PROTOCOL Performed By: #### L 501.080 ####[facility] [address] [place], [address] CBC W/Diff, Automatedon 09-10 Absolute Lymph 2.67 X10 3/uL Normal 0.83-4.51 [facility] Comment on above: Performed By: #### L 300.3900, L100.0100, L500.2500 ####[facility] [address] [place], [address] Absolute Neut 4.3 X10 3/uL Normal 2.0-7.7 [facility] Comment on above: Performed By: #### L 300.3900, L100.0100, L500.2500 ####[facility] [address] [place], [address] Basophils/100 WBC (Bld) 0.5 % Normal 0-1 [facility] Comment on above: Performed By: #### L 300.3900, L100.0100, L500.2500 ####[facility] [address] [place], [address] Eosinophils/100 WBC (Bld) 2.8 % Normal 0-5 [facility] Comment on above: Performed By: #### L 300.3900, L100.0100, L500.2500 ####[facility] [address] [place], [address] Erythrocyte distribution width (RBC) [Ratio] 14.3 % Normal 11.6-14.6 [facility] Comment on above: Performed By: #### L 300.3900, L100.0100, L500.2500 ####[facility] [address] [place], [address] Hematocrit (Bld) [Volume fraction] 38.3 % Low 40-54 [facility] Comment on above: Performed By: #### L 300.3900, L100.0100, L500.2500 ####[facility] [address] [place], [address] Hemoglobin (Bld) [Mass/Vol] 12.7 g/dL Low 13.0-16.5 [facility] Comment on above: Performed By: #### L 300.3900, L100.0100, L500.2500 ####[facility] [address] [place], [address] IG% 1.400 High 0.0-0.9 [facility] Comment on above: Result Comment: IG% - Immature Granulocytes (promyelocytes, myelocytes andmetamyelocytes) > 1% indicates that a LEFT SHIFT is Present. Performed By: #### L 300.3900, L100.0100, L500.2500 ####[facility] [address] [place], [address] Lymphocytes/100 WBC (Bld) 33.8 % Normal 19-41 [facility] Comment on above: Performed By: #### L 300.3900, L100.0100, L500.2500 ####[facility] [address] [place], [address] MCH (RBC) [Entitic mass] 30.7 pg Normal 27.0-32.0 [facility] Comment on above: Performed By: #### L 300.3900, L100.0100, L500.2500 ####[facility] [address] [place], [address] MCHC (RBC) [Mass/Vol] 33.2 g/dL Normal 32-36 [facility] Comment on above: Performed By: #### L 300.3900, L100.0100, L500.2500 ####[facility] [address] [place], [address] MCV (RBC) [Entitic vol] 92.5 fL Normal 80-94 [facility] Comment on above: Performed By: #### L 300.3900, L100.0100, L500.2500 ####[facility] [address] [place], [address] Monocytes/100 WBC (Bld) 7.4 % Normal 0-10 [facility] Comment on above: Performed By: #### L 300.3900, L100.0100, L500.2500 ####[facility] [address] [place], [address] Neutrophils/100 WBC (Bld) 54.1 % Normal 47-70 [facility] Comment on above: Performed By: #### L 300.3900, L100.0100, L500.2500 ####[facility] [address] [place], [address] Nucleated RBC (Bld) [#/Vol] 0 10*3/uL Normal 0-5 [facility] Comment on above: Performed By: #### L 300.3900, L100.0100, L500.2500 ####[facility] [address] [place], [address] Platelet mean volume (Bld) [Entitic vol] 9.0 fL Normal 6.2-12.0 [facility] Comment on above: Performed By: #### L 300.3900, L100.0100, L500.2500 ####[facility] [address] [place], [address] Platelets (Bld) [#/Vol] 288 10*3/uL Normal 150-450 [facility] Comment on above: Performed By: #### L 300.3900, L100.0100, L500.2500 ####[facility] [address] [place], [address] RBC (Bld) [#/Vol] 4.14 10*6/uL Low 4.6-6.2 [facility] Comment on above: Performed By: #### L 300.3900, L100.0100, L500.2500 ####[facility] [address] [place], [address] RDW SD 48.4 fl High 35.1-43.9 [facility] Comment on above: Performed By: #### L 300.3900, L100.0100, L500.2500 ####[facility] [address] [place], [address] WBC (Bld) [#/Vol] 7.9 10*3/uL Normal 4.4-11.0 [facility] Comment on above: Performed By: #### L 300.3900, L100.0100, L500.2500 ####[facility] [address] [place], [address] CDIFF (PCR)on 09-29-2023 CDIFF Normal [facility] Comment on above: Performed By: #### M 100.6796, M100.6795 ####[facility] [address] [place], [address] Clostridium Diff Toxin/Agon 09-29-2023 CDIFF (EIA) Normal [facility] Comment on above: Performed By: #### M 100.6796, M100.6795 ####[facility] [address] [place], [address] Consultation - Urologyon Consultation - Urology Normal [facility] ENTERIC PATHOGEN PANEL STOOL on 09-29-2023 EP PANEL Normal [facility] Comment on above: Performed By: #### M 100.637, M100.2200 ####[facility] [address] [place], [address] Lactic Acidon 09-29-2023 Lactate [Moles/Vol] 1.9 mmol/L Normal 0.4-1.9 [facility] Comment on above: Order Comment: Comme nts: timed lactic acid labY Performed By: #### L 503.6005 ####[facility] [address] [place], [address] Prothrombin Time w/INRon INR Coag (PPP) [Relative time] 3.9 {INR} Normal [facility] Comment on above: Performed By: #### L 300.3900, L100.0100, L500.2500 ####[facility] [address] [place], [address] PT Coag (PPP) [Time] 38.0 s High 11.7-14.9 [facility] Comment on above: Performed By: #### L 300.3900, L100.0100, L500.2500 ####[facility] [address] [place], [address] 12 Lead EKGon 09-28-2023 12 Lead EKG Normal [facility] Abdomen/Pelvis W IV Cont ONL Yon 09-28-2023 Abdomen/Pelvis W IV Cont ONLY Normal [facility] CBC W/Diff, Automatedon 09-09 Absolute Lymph 2.72 X10 3/uL Normal 0.83-4.51 [facility] Comment on above: Performed By: #### L 100.0100, L500.4050 ####[facility] [address] [place], [address] Absolute Neut 7.2 X10 3/uL Normal 2.0-7.7 [facility] Comment on above: Performed By: #### L 100.0100, L500.4050 ####[facility] [address] [place], [address] Basophils/100 WBC (Bld) 0.5 % Normal 0-1 [facility] Comment on above: Performed By: #### L 100.0100, L500.4050 ####[facility] [address] [place], [address] Eosinophils/100 WBC (Bld) 2.1 % Normal 0-5 [facility] Comment on above: Performed By: #### L 100.0100, L500.4050 ####[facility] [address] [place], [address] Erythrocyte distribution width (RBC) [Ratio] 14.0 % Normal 11.6-14.6 [facility] Comment on above: Performed By: #### L 100.0100, L500.4050 ####[facility] [address] [place], [address] Hematocrit (Bld) [Volume fraction] 43.7 % Normal 40-54 [facility] Comment on above: Performed By: #### L 100.0100, L500.4050 ####[facility] [address] [place], [address] Hemoglobin (Bld) [Mass/Vol] 14.3 g/dL Normal 13.0-16.5 [facility] Comment on above: Performed By: #### L 100.0100, L500.4050 ####[facility] [address] [place], [address] IG% 1.000 High 0.0-0.9 [facility] Comment on above: Result Comment: IG% - Immature Granulocytes (promyelocytes, myelocytes andmetamyelocytes) > 1% indicates that a LEFT SHIFT is Present. Performed By: #### L 100.0100, L500.4050 ####[facility] [address] [place], [address] Lymphocytes/100 WBC (Bld) 24.2 % Normal 19-41 [facility] Comment on above: Performed By: #### L 100.0100, L500.4050 ####[facility] [address] [place], [address] MCH (RBC) [Entitic mass] 30.4 pg Normal 27.0-32.0 [facility] Comment on above: Performed By: #### L 100.0100, L500.4050 ####[facility] [address] [place], [address] MCHC (RBC) [Mass/Vol] 32.7 g/dL Normal 32-36 [facility] Comment on above: Performed By: #### L 100.0100, L500.4050 ####[facility] [address] [place], [address] MCV (RBC) [Entitic vol] 92.8 fL Normal 80-94 [facility] Comment on above: Performed By: #### L 100.0100, L500.4050 ####[facility] [address] [place], [address] Monocytes/100 WBC (Bld) 7.7 % Normal 0-10 [facility] Comment on above: Performed By: #### L 100.0100, L500.4050 ####[facility] [address] [place], [address] Neutrophils/100 WBC (Bld) 64.5 % Normal 47-70 [facility] Comment on above: Performed By: #### L 100.0100, L500.4050 ####[facility] [address] [place], [address] Nucleated RBC (Bld) [#/Vol] 0 10*3/uL Normal 0-5 [facility] Comment on above: Performed By: #### L 100.0100, L500.4050 ####[facility] [address] [place], [address] Platelet mean volume (Bld) [Entitic vol] 8.9 fL Normal 6.2-12.0 [facility] Comment on above: Performed By: #### L 100.0100, L500.4050 ####[facility] [address] [place], [address] Platelets (Bld) [#/Vol] 342 10*3/uL Normal 150-450 [facility] Comment on above: Performed By: #### L 100.0100, L500.4050 ####[facility] [address] [place], [address] RBC (Bld) [#/Vol] 4.71 10*6/uL Normal 4.6-6.2 [facility] Comment on above: Performed By: #### L 100.0100, L500.4050 ####[facility] [address] [place], [address] RDW SD 48.2 fl High 35.1-43.9 [facility] Comment on above: Performed By: #### L 100.0100, L500.4050 ####[facility] [address] [place], [address] WBC (Bld) [#/Vol] 11.2 10*3/uL High 4.4-11.0 [facility] Comment on above: Performed By: #### L 100.0100, L500.4050 ####[facility] [address] [place], [address] CPK Total, Creatine Kinaseon 09-28-2023 CPK TOTAL 116 U/L Normal 39-308 [facility] Comment on above: Performed By: #### M 200.1000, L501.3620, L300.4310 ####[facility] [address] [place], [address] Comprehensive Metabolic Prof ilon 09-28-2023 Albumin [Mass/Vol] 3.1 g/dL Low 3.2-5.0 [facility] Comment on above: Performed By: #### L 100.0100, L500.4050 ####[facility] [address] [place], [address] Albumin/Globulin [Mass ratio] 0.6 {ratio} Low 0.9-2.4 [facility] Comment on above: Performed By: #### L 100.0100, L500.4050 ####[facility] [address] [place], [address] ALK P 99 U/L Normal 45-117 [facility] Comment on above: Performed By: #### L 100.0100, L500.4050 ####[facility] [address] [place], [address] ALT [Catalytic activity/Vol] 56 U/L Normal 16-61 [facility] Comment on above: Performed By: #### L 100.0100, L500.4050 ####[facility] [address] [place], [address] AST [Catalytic activity/Vol] 46 U/L High 15-37 [facility] Comment on above: Performed By: #### L 100.0100, L500.4050 ####[facility] [address] [place], [address] Bilirubin [Mass/Vol] 1.00 mg/dL Normal 0.20-1.00 [facility] Comment on above: Result Comment: For patients on eltrombopag therapy, use of Dimension [place] TBIL is not recommended. Performed By: #### L 100.0100, L500.4050 ####[facility] [address] [place], [address] BUN/CRE 10.3 RATIO Normal 10-20 [facility] Comment on above: Performed By: #### L 100.0100, L500.4050 ####[facility] [address] [place], [address] CA,Total 9.2 mg/dL Normal 8.5-10.1 [facility] Comment on above: Performed By: #### L 100.0100, L500.4050 ####[facility] [address] [place], [address] Chloride [Moles/Vol] 104 mmol/L Normal 98-107 [facility] Comment on above: Performed By: #### L 100.0100, L500.4050 ####[facility] [address] [place], [address] CO2 [Moles/Vol] 25.0 mmol/L Normal 21.0-32.0 [facility] Comment on above: Performed By: #### L 100.0100, L500.4050 ####[facility] [address] [place], [address] Creatinine [Mass/Vol] 1.45 mg/dL High 0.70-1.30 [facility] Comment on above: Result Comment: The validity of the calculated GFR GFRAA in patients over70 years has not been determined. Clinical correlation isessential. Performed By: #### L 100.0100, L500.4050 ####[facility] [address] [place], [address] ECRCL 49.70 ml/min Normal [facility] Comment on above: Performed By: #### L 100.0100, L500.4050 ####[facility] [address] [place], [address] EST GFR - AA 61 mL/min Normal >60 [facility] Comment on above: Result Comment: Afri can [place]ian GFR Calc Performed By: #### L 100.0100, L500.4050 ####[facility] [address] [place], [address] GAP 7 Normal 5-15 [facility] Comment on above: Performed By: #### L 100.0100, L500.4050 ####[facility] [address] [place], [address] GFR/1.73 sq M.predicted among non-blacks MDRD (S/P/Bld) [Vol rate/Area] 50 mL/min/{1.73_m2} Low >60 [facility] Comment on above: Result Comment: Non- GFR Calc Performed By: #### L 100.0100, L500.4050 ####[facility] [address] [place], [address] Globulin (S) [Mass/Vol] 5.0 g/dL High 2.2-4.2 [facility] Comment on above: Performed By: #### L 100.0100, L500.4050 ####[facility] [address] [place], [address] Glucose [Mass/Vol] 106 mg/dL Normal 74-106 [facility] Comment on above: Result Comment: Fast ing Glucose result from 100 to 125 mg/dLsuggests IMPAIRED HOMEOSTASIS per A.D.A. criteria. Performed By: #### L 100.0100, L500.4050 ####[facility] [address] [place], [address] Potassium [Moles/Vol] 4.5 mmol/L Normal 3.5-5.1 [facility] Comment on above: Performed By: #### L 100.0100, L500.4050 ####[facility] [address] [place], [address] Sodium [Moles/Vol] 136 mmol/L Normal 136-145 [facility] Comment on above: Performed By: #### L 100.0100, L500.4050 ####[facility] [address] [place], [address] T PROT 8.1 g/dL Normal 6.4-8.2 [facility] Comment on above: Performed By: #### L 100.0100, L500.4050 ####[facility] [address] [place], [address] Urea nitrogen [Mass/Vol] 15 mg/dL Normal 7-18 [facility] Comment on above: Performed By: #### L 100.0100, L500.4050 ####[facility] [address] [place], [address] Emergency Department Summary on 09-28-2023 Emergency Department Summary Normal [facility] H AND P Exam - Hospitaliston 09-28-2023 H&P Exam - Hospitalist Normal [facility] Lactic Acidon 09-28-2023 Lactate [Moles/Vol] 3.8 mmol/L Invalid Interpretation Code 0.4-1.9 [facility] Comment on above: Result Comment: Crit ical Result(s) Called at: 21:56:38 09/28/2023 by:Alanis Benito to Marta. Results read back bysame. Performed By: #### L 503.6005 ####[facility] [address] [place], [place], [address] Lactate [Moles/Vol] 2.3 mmol/L Invalid Interpretation Code 0.4-1.9 [facility] Comment on above: Order Comment: Y Result Comment: Crit ical Result(s) Called at: 17:34:07 09/28/2023 by:SHWETA TOBIAS TO MACY HUMPHREY. Results read back by same. Performed By: #### L 503.6005 ####[facility] [address] [place], [place], [address] Partial Thromboplast Timeon 09-28-2023 aPTT Coag (Bld) [Time] 64.9 s High 24.1-36.2 [facility] Comment on above: Performed By: #### M 200.1000, L501.3620, L300.4310 ####[facility] [address] [place], [address] Prothrombin Time w/INRon INR Coag (PPP) [Relative time] 4.0 {INR} Invalid Interpretation Code [facility] Comment on above: Result Comment: CRIT ICAL VALUE VERIFIED. CALLED TO [id number]/19/[id number] Alanis Benito.RESULTS READ BACK BY SAME . Performed By: #### L 300.5793 ####[facility] [address] [place], [address] PT Coag (PPP) [Time] 38.3 s High 11.7-14.9 [facility] Comment on above: Performed By: #### L 300.3900 ####[facility] [address] [place], [address] Urinalysis, Completeon 09-27 BACTERIA 2+ /hpf Normal None Seen [facility] Comment on above: Order Comment: CLEAN CATCH Performed By: #### L 400.0001 ####[facility] [address] [place], [address] EPI,SQUAMOUS 10-25 SEEN Normal 0-5 [facility] Comment on above: Order Comment: CLEAN CATCH Performed By: #### L 400.0001 ####[facility] [address] [place], [address] RBC > 100 SEEN Normal 0-5 [facility] Comment on above: Order Comment: CLEAN CATCH Performed By: #### L 400.0001 ####[facility] [address] [place], [address] WBC >100 SEEN Normal 0-5 [facility] Comment on above: Order Comment: CLEAN CATCH Performed By: #### L 400.0001 ####[facility] [address] [place], [address] BILIRUBIN URINE Negative Normal Negative [facility] Comment on above: Order Comment: CLEAN CATCH Performed By: #### L 400.0001 ####[facility] [address] [place], [address] Clarity (U) Clear Normal Clear [facility] Comment on above: Order Comment: CLEAN CATCH Performed By: #### L 400.0001 ####[facility] [address] [place], [address] Color (U) Yellow Normal Yellow [facility] Comment on above: Order Comment: CLEAN CATCH Performed By: #### L 400.0001 ####[facility] [address] [place], [address] GLUCOSE, UR Normal Normal Normal [facility] Comment on above: Order Comment: CLEAN CATCH Performed By: #### L 400.0001 ####[facility] [address] [place], [address] KETONE UR Negative Normal Negative [facility] Comment on above: Order Comment: CLEAN CATCH Performed By: #### L 400.0001 ####[facility] [address] [place], [address] LEUK ESTERASE 500 /ul Abnormal Negative [facility] Comment on above: Order Comment: CLEAN CATCH Performed By: #### L 400.0001 ####[facility] [address] [place], [address] Nitrite Ql (U) Negative Normal Negative [facility] Comment on above: Order Comment: CLEAN CATCH Performed By: #### L [id number] ####[facility] [address] [place], [address] OCCULT BLOOD-UR 250 /ul Abnormal Negative [facility] Comment on above: Order Comment: CLEAN CATCH Performed By: #### L [id number] ####[facility] [address] [place], [address] pH UR 5.0 Normal 5.0 - 8.0 [facility] Comment on above: Order Comment: CLEAN CATCH Performed By: #### L [id number] ####[facility] [address] [place], [address] PROT DIPSTX 15 mg/dl Abnormal Negative [facility] Comment on above: Order Comment: CLEAN CATCH Performed By: #### L [id number] ####[facility] [address] [place], [address] SP.GR. DIPSTX 1.015 Normal 1.002-1.03 0 [facility] Comment on above: Order Comment: CLEAN CATCH Performed By: #### [id number] ####[facility] [address] [place], [address] UROBILI Normal Normal Normal [facility] Comment on above: Order Comment: CLEAN CATCH Performed By: #### [id number] ####[facility] [address] [place], [address] Mucus Ql (Urine sed) 0 SEEN Normal [facility] Comment on above: Order Comment: CLEAN CATCH Performed By: #### L [id number] ####[facility] [address] [place], [place], [id number] Absolute lymphocyte countOrd ered By: Luis Hay on 04-15-2023 Lymphocytes Auto (Unsp spec) [#/Vol] 2.40 10*3/uL 0.83-4.51 [facility] Automated lymphocyte count a s percentage of total leukocytesOrdered By: Luis Hay on 04-15-2023 Lymphocytes/100 WBC Auto (Unsp spec) 29.0 % 19-41 [facility] Basophil percentageOrdered B y: Luis Hay on 04-15-2023 Basophils/100 WBC (Bld) 0.7 % 0-1 [facility] Bilirubin [Mass/Vol] 1.40 mg/dL 0.20-1.00 [facility] Comment on above: For patients on eltr ombopag therapy, use of Dimension [place] TBIL is not recommended. Chloride [Moles/Vol] 105 mmol/L 98-107 [facility] Cholesterol [Mass/Vol] 137 mg/dL <200 [facility] Comment on above: <200 mg/dL Desirable 200-240 mg/dL Borderline >240 mg/dL High Risk Eosinophils/100 WBC (Bld) 3.5 % 0-5 [facility] Glucose [Mass/Vol] 181 mg/dL 74-106 [facility] Comment on above: Fasting Glucose resu lt greater than or equal to 126 mg/dL suggests DIABETES MELLITUS per A.D.A. criteria. Hemoglobin (Bld) [Mass/Vol] 14.7 g/dL 13.0-16.5 [facility] Monocytes/100 WBC (Bld) 8.0 % 0-10 [facility] Neutrophils (Bld) [#/Vol] 4.9 10*3/uL 2.0-7.7 [facility] Neutrophils/100 WBC (Bld) 58.6 % 47-70 [facility] Potassium [Moles/Vol] 4.8 mmol/L 3.5-5.1 [facility] Protein [Mass/Vol] 7.5 g/dL 6.4-8.2 [facility] Sodium [Moles/Vol] 139 mmol/L 136-145 [facility] Triglyceride [Mass/Vol] 297 mg/dL <199 [facility] Comment on above: The drugs N-Acetylcy steine and Metamizole may falsely depress this assay.Serum Triglycerides Reference Interval Normal <150 mg/dL Borderline high 150 - 199 mg/dL High 200 - 499 mg/dL Very High > or = 500 mg/dL WBC (Bld) [#/Vol] 8.3 10*3/uL 4.4-11.0 [facility] Determination of erythrocyte mean corpuscular volume (MCV)Ordered By: Tiananew salisburyingrid Hay on 04-15-2023 MCV (RBC) [Entitic vol] 93.8 fL 80-94 [facility] Erythrocyte distribution wid th ratioOrdered By: [facility] Miguel Ángelaiden on 04-15-2023 Erythrocyte distribution width (RBC) [Ratio] 13.8 % 11.6-14.6 [facility] Erythrocyte distribution wid th standard deviationOrdered By: [facility] Miguel Ángelaiden on 04-15-2023 Erythrocyte distribution width (RBC) [Entitic vol] 47.3 fL 35.1-43.9 [facility] Hematocrit Auto (Bld) [Volum e fraction]Ordered By: [facility] Miguel Ángelaiden on 04-15-2023 Hematocrit (Bld) [Volume fraction] 44.0 % 40-54 [facility] Immature granulocytes/100 WB C Auto (Bld)Ordered By: [facility] Miguel Ángelaiden on 04-15-2023 Immature granulocytes/100 WBC (Bld) 0.200 % 0.0-0.9 [facility] Comment on above: IG% - Immature Granu locytes (promyelocytes, myelocytes and metamyelocytes) > 1% indicates that a LEFT SHIFT is Present. Laboratory - Chemistry and C hemistry - challengeOrdered By: Luis Hay on 04-15-2023 Albumin/Globulin [Mass ratio] 1.0 {ratio} 0.9-2.4 [facility] ALP [Catalytic activity/Vol] 61 U/L 45-117 [facility] ALT [Catalytic activity/Vol] 51 U/L 16-61 [facility] Cholesterol in HDL [Mass/Vol] 42 mg/dL >40 [facility] Comment on above: The drugs N-Acetylcy steine and Metamizole may falsely depress this assay. Reference Range HDL <40 mg/dL Low HDL Cholesterol HDL >or= 60 mg/dL High HDL Cholesterol Cholesterol in LDL [Mass/Vol] 36 mg/dL 0-130 [facility] CO2 [Moles/Vol] 28.0 mmol/L 21.0-32.0 [facility] Globulin (S) [Mass/Vol] 3.7 g/dL 2.2-4.2 [facility] Urea nitrogen/Creatinine [Mass ratio] 9.5 mg/mg 10-20 [facility] Laboratory - Hematology and Cell countsOrdered By: Luis Hay on 04-15-2023 MCH (RBC) [Entitic mass] 31.3 pg 27.0-32.0 [facility] MCHC (RBC) [Mass/Vol] 33.4 g/dL 32-36 [facility] Nucleated RBC/100 WBC (Bld) [Ratio] 0 % 0-5 [facility] Platelet mean volume (Bld) [Entitic vol] 10.1 fL 6.2-12.0 [facility] Platelets (Bld) [#/Vol] 240 10*3/uL 150-450 [facility] No Panel InformationOrdered By: Luis Hay on 04-15-2023 Estimated GFR (MDRD) Amer 59 mL/min >60 [facility] Comment on above: GFR Calc Estimated GFR (MDRD) Non-Af Amer 49 mL/min >60 [facility] Comment on above: Non- GFR Calc VLDL Cholesterol 59 mg/dL 5-40 [facility] RBC Auto (Bld) [#/Vol]Ordere d By: Luis Hay on 04-15-2023 RBC (Bld) [#/Vol] 4.69 10*6/uL 4.6-6.2 [facility] Serum or plasma calcium musa urement (mass/volume)Ordered By: Luis Hay on 04-15-2023 Calcium [Mass/Vol] 9.5 mg/dL 8.5-10.1 [facility] Serum or plasma creatinine m easurement (mass/volume)Ordered By: Luis Hay on 04-15-2023 Creatinine [Mass/Vol] 1.48 mg/dL 0.70-1.30 [facility] Comment on above: The validity of the calculated GFR & GFRAA in patients over 70 years has not been determined. Clinical correlation is essential. Serum or plasma thyroid stim ulating hormone (TSH) measurement (units/volume)Ordered By: Luis Hay on 04-15-2023 TSH Qn 1.80 uIU/mL 0.358-3.74 [facility] Serum or plasma urea nitroge n measurement (mass/volume)Ordered By: Luis Hay on 04-15-2023 Urea nitrogen [Mass/Vol] 14 mg/dL 7-18 [facility] Thin prep Papanicolaou smear with manual screeningOrdered By: Luis Hay on 04-15-2023 Thin prep Papanicolaou smear with manual screening 3.8 g/dL 3.2-5.0 [facility] Thin prep Papanicolaou smear with manual screening 37 U/L 15-37 [facility] Thin prep Papanicolaou smear with manual screening 6 5-15 [facility] Thin prep Papanicolaou smear with manual screening 0.91 ng/dL 0.76-1.46 [facility] Whole blood hemoglobin A1c/t otal hemoglobin ratio (mass fraction)Ordered By: Luis Hay on 04-15-2023 HbA1c (Bld) [Mass fraction] 6.5 % 3.8-5.6 [facility] Comment on above: Normal < 5.7 % Predi abetic 5.7 - 6.4 % Diabetic >or= 6.5 % Please note range changes. No Panel Informationon 04-09 INR International Normalized Ratio 2.6 [facility] No Panel Informationon 03-30 INR International Normalized Ratio 1.8 [facility] No Panel Informationon 03-13 INR International Normalized Ratio 2.6 [facility] No Panel Informationon 02-27 INR International Normalized Ratio 2.1 [facility] No Panel Informationon 02-20 INR International Normalized Ratio 1.6 [facility] No Panel Informationon 02-06 INR International Normalized Ratio 2.7 [facility] No Panel Informationon 01-18 INR International Normalized Ratio 3.0 [facility] Laboratory - Hematology and Cell countson 01-14-2023 HbA1c (Bld) [Mass fraction] 7.2 % 4.2-6.3 [facility] No Panel Informationon 12-29 INR International Normalized Ratio 2.4 [facility] No Panel Informationon 10-31 INR International Normalized Ratio 1.9 [facility] No Panel InformationOrdered By: Luis Hay on 10-29-2022 Urine Microalbumin/Creatinine Ratio 9.2 mg/g CRE <30 [facility] Thin prep Papanicolaou smear with manual screeningOrdered By: Luis Hay on 10-29-2022 Thin prep Papanicolaou smear with manual screening 6.3 mg/L NO RANGE EST. [facility] Urine creatinine measurement (mass/volume)Ordered By: Luis Hay on 10-29-2022 Creatinine (U) [Mass/Vol] 68.70 mg/dL NO RANGE EST. [facility] Basophil percentageOrdered B y: Luis Hay on 10-22-2022 Bilirubin [Mass/Vol] 1.10 mg/dL 0.20-1.00 [facility] Comment on above: For patients on eltr ombopag therapy, use of Dim[place] TBIL is not recommended. Chloride [Moles/Vol] 103 mmol/L 98-107 [facility] Glucose [Mass/Vol] 192 mg/dL 74-106 [facility] Comment on above: Fasting Glucose resu lt greater than or equal to 126 mg/dL suggests DIABETES MELLITUS per A.D.A. criteria. Potassium [Moles/Vol] 4.6 mmol/L 3.5-5.1 [facility] Protein [Mass/Vol] 7.6 g/dL 6.4-8.2 [facility] Sodium [Moles/Vol] 135 mmol/L 136-145 [facility] Laboratory - Chemistry and C hemistry - challengeOrdered By: Luis Hay on 10-22-2022 ALP [Catalytic activity/Vol] 65 U/L 45-117 [facility] ALT [Catalytic activity/Vol] 60 U/L 16-61 [facility] CO2 [Moles/Vol] 24.0 mmol/L 21.0-32.0 [facility] Globulin (S) [Mass/Vol] 3.8 g/dL 2.2-4.2 [facility] Urea nitrogen/Creatinine [Mass ratio] 10.1 mg/mg 10-20 [facility] No Panel InformationOrdered By: Luis Hay on 10-22-2022 Estimated GFR (MDRD) Amer 64 mL/min >60 [facility] Comment on above: GFR Calc Estimated GFR (MDRD) Non-Af Amer 53 mL/min >60 [facility] Comment on above: Non- GFR Calc Serum or plasma albumin musa urement (mass/volume)Ordered By: Luis Hay on 10-22-2022 Albumin [Mass/Vol] 3.8 g/dL 3.2-5.0 [facility] Serum or plasma albumin/glob ulin mass ratioOrdered By: Luis Hay on 10-22-2022 Albumin/Globulin [Mass ratio] 1.0 {ratio} 0.9-2.4 [facility] Serum or plasma calcium musa urement (mass/volume)Ordered By: Luis Hay on 10-22-2022 Calcium [Mass/Vol] 9.3 mg/dL 8.5-10.1 [facility] Serum or plasma creatinine m easurement (mass/volume)Ordered By: Luis Hay on 10-22-2022 Creatinine [Mass/Vol] 1.39 mg/dL 0.70-1.30 [facility] Comment on above: The validity of the calculated GFR & GFRAA in patients over 70 years has not been determined. Clinical correlation is essential. Serum or plasma urea nitroge n measurement (mass/volume)Ordered By: Luis Hay on 10-22-2022 Urea nitrogen [Mass/Vol] 14 mg/dL 7-18 [facility] Thin prep Papanicolaou smear with manual screeningOrdered By: Luis Hay on 10-22-2022 Thin prep Papanicolaou smear with manual screening 37 U/L 15-37 [facility] Thin prep Papanicolaou smear with manual screening 8 5-15 [facility] Whole blood hemoglobin A1c/t otal hemoglobin ratio (mass fraction)Ordered By: Luis Hay on 10-22-2022 HbA1c (Bld) [Mass fraction] 7.2 % 3.8-5.6 [facility] Comment on above: Normal < 5.7 % Predi abetic 5.7 - 6.4 % Diabetic >or= 6.5 % Please note range changes. No Panel Informationon 10-10 INR International Normalized Ratio 2.9 [facility] No Panel Informationon 09-27 INR International Normalized Ratio 2.4 [facility] No Panel Informationon 09-14 INR International Normalized Ratio 2.5 [facility] No Panel Informationon 08-29 INR International Normalized Ratio 2.4 [facility] No Panel Informationon 08-16 INR International Normalized Ratio 2.6 [facility] No Panel Informationon 08-08 INR International Normalized Ratio 1.9 [facility] Laboratory - Hematology and Cell countson 07-28-2022 HbA1c (Bld) [Mass fraction] 8.2 % 4.2-6.3 [facility] No Panel Informationon 07-25 INR International Normalized Ratio 2.8 [facility] No Panel Informationon 07-11 INR International Normalized Ratio 2.6 [facility] Absolute lymphocyte countOrd ered By: Oksana Guillermo on 04-14-2022 Lymphocytes Auto (Unsp spec) [#/Vol] 2.65 10*3/uL 0.83-4.51 [facility] Basophil percentageOrdered B y: Oksana Guillermo on 04-14-2022 Basophils/100 WBC (Bld) 0.7 % 0-1 [facility] Bilirubin [Mass/Vol] 1.20 mg/dL 0.20-1.00 [facility] Comment on above: For patients on eltr ombopag therapy, use of Dimension [place] TBIL is not recommended. Chloride [Moles/Vol] 101 mmol/L 98-107 [facility] Cholesterol [Mass/Vol] 159 mg/dL <200 [facility] Comment on above: <200 mg/dL Desirable 200-240 mg/dL Borderline >240 mg/dL High Risk Eosinophils/100 WBC (Bld) 2.6 % 0-5 [facility] Glucose [Mass/Vol] 182 mg/dL 74-106 [facility] Comment on above: Fasting Glucose resu lt greater than or equal to 126 mg/dL suggests DIABETES MELLITUS per A.D.A. criteria. Neutrophils (Bld) [#/Vol] 5.0 10*3/uL 2.0-7.7 [facility] Neutrophils/100 WBC (Bld) 57.0 % 47-70 [facility] Potassium [Moles/Vol] 4.5 mmol/L 3.5-5.1 [facility] Protein [Mass/Vol] 7.5 g/dL 6.4-8.2 [facility] Sodium [Moles/Vol] 137 mmol/L 136-145 [facility] Triglyceride [Mass/Vol] 316 mg/dL <199 [facility] Comment on above: The drugs N-Acetylcy steine and Metamizole may falsely depress this assay.Serum Triglycerides Reference Interval Normal <150 mg/dL Borderline high 150 - 199 mg/dL High 200 - 499 mg/dL Very High > or = 500 mg/dL WBC (Bld) [#/Vol] 8.8 10*3/uL 4.4-11.0 [facility] Blood erythrocytes count (nu mber/volume)Ordered By: Oksana Guillermo on 04-14-2022 RBC (Bld) [#/Vol] 4.68 10*6/uL 4.6-6.2 [facility] Blood hemoglobin measurement (mass/volume)Ordered By: Oksana Guillermo on 04-14-2022 Hemoglobin (Bld) [Mass/Vol] 14.6 g/dL 13.0-16.5 [facility] Blood lymphocytes/100 leukoc ytesOrdered By: Oksana Giullermo on 04-14-2022 Lymphocytes/100 WBC (Bld) 30.0 % 19-41 [facility] Blood monocytes/100 leukocyt esOrdered By: Oksana Guillermo on 04-14-2022 Monocytes/100 WBC (Bld) 9.4 % 0-10 [facility] Blood platelet mean volumeOr dered By: Oksana Guillermo on 04-14-2022 Platelet mean volume (Bld) [Entitic vol] 10.4 fL 6.2-12.0 [facility] Determination of erythrocyte mean corpuscular volume (MCV)Ordered By: Oksana Guillermo on 04-14-2022 MCV (RBC) [Entitic vol] 94.9 fL 80-94 [facility] Direct bilirubinOrdered By: Oksana Guillermo on 04-14-2022 Bilirubin.direct [Mass/Vol] 0.23 mg/dL 0.00-0.30 [facility] Hematocrit Auto (Bld) [Volum e fraction]Ordered By: Oksana Guillermo on 04-14-2022 Hematocrit (Bld) [Volume fraction] 44.4 % 40-54 [facility] Laboratory - Chemistry and C hemistry - challengeOrdered By: Oksana Guillermo on 04-14-2022 ALP [Catalytic activity/Vol] 58 U/L 45-117 [facility] ALT [Catalytic activity/Vol] 53 U/L 16-61 [facility] CO2 [Moles/Vol] 27.0 mmol/L 21.0-32.0 [facility] Globulin (S) [Mass/Vol] 3.7 g/dL 2.2-4.2 [facility] Natriuretic peptide B (Bld) [Mass/Vol] 27.2 pg/mL 0-100 [facility] Urea nitrogen/Creatinine [Mass ratio] 11.8 mg/mg 10-20 [facility] Laboratory - Hematology and Cell countsOrdered By: Oksana Guillermo on 04-14-2022 Erythrocyte distribution width (RBC) [Entitic vol] 47.2 fL 35.1-43.9 [facility] Erythrocyte distribution width (RBC) [Ratio] 13.5 % 11.6-14.6 [facility] Immature granulocytes/100 WBC (Bld) 0.300 % 0.0-0.9 [facility] Comment on above: IG% - Immature Granu locytes (promyelocytes, myelocytes and metamyelocytes) > 1% indicates that a LEFT SHIFT is Present. MCH (RBC) [Entitic mass] 31.2 pg 27.0-32.0 [facility] Nucleated RBC/100 WBC (Bld) [Ratio] 0 % 0-5 [facility] MCHC Auto (RBC) [Mass/Vol]Or dered By: Oksana Guillermo on 04-14-2022 MCHC (RBC) [Mass/Vol] 32.9 g/dL 32-36 [facility] No Panel InformationOrdered By: Oksana Guillermo on 04-14-2022 Estimated GFR (MDRD) Amer 54 mL/min >60 [facility] Comment on above: GFR Calc Estimated GFR (MDRD) Non-Af Amer 45 mL/min >60 [facility] Comment on above: Non- GFR Calc Thyroid Stimulating Hormone (TSH) 2.36 uIU/mL 0.358-3.74 [facility] Platelets bldOrdered By: Nabil Guillermo on 04-14-2022 Platelets (Bld) [#/Vol] 227 10*3/uL 150-450 [facility] Serum or plasma albumin musa urement (mass/volume)Ordered By: Oksana Guillermo on 04-14-2022 Albumin [Mass/Vol] 3.8 g/dL 3.2-5.0 [facility] Serum or plasma calcium musa urement (mass/volume)Ordered By: Oksana Guillermo on 04-14-2022 Calcium [Mass/Vol] 9.5 mg/dL 8.5-10.1 [facility] Serum or plasma cholesterol in HDL measurement (mass/volume)Ordered By: Oksana Guillermo on 04-14-2022 Cholesterol in HDL [Mass/Vol] 41 mg/dL >40 [facility] Comment on above: The drugs N-Acetylcy steine and Metamizole may falsely depress this assay. Reference Range HDL <40 mg/dL Low HDL Cholesterol HDL >or= 60 mg/dL High HDL Cholesterol Serum or plasma cholesterol in VLDL measurement (mass/volume)Ordered By: Oksana Guillermo on 04-14-2022 Cholesterol in VLDL [Mass/Vol] 63 mg/dL 5-40 [facility] Serum or plasma creatinine m easurement (mass/volume)Ordered By: Oksana Guillermo on 04-14-2022 Creatinine [Mass/Vol] 1.61 mg/dL 0.70-1.30 [facility] Comment on above: The validity of the calculated GFR & GFRAA in patients over 70 years has not been determined. Clinical correlation is essential. Serum or plasma low density lipoprotein (LDL) cholesterol measurement (mass/volume)Ordered By: Oksana Guillermo on 04-14-2022 Cholesterol in LDL [Mass/Vol] 55 mg/dL 0-130 [facility] Serum or plasma urea nitroge n measurement (mass/volume)Ordered By: Oksana Guillermo on 04-14-2022 Urea nitrogen [Mass/Vol] 19 mg/dL 7-18 [facility] Thin prep Papanicolaou smear with manual screeningOrdered By: Oksana Guillermo on 04-14-2022 Thin prep Papanicolaou smear with manual screening 32 U/L 15-37 [facility] Thin prep Papanicolaou smear with manual screening 9 5-15 [facility] No Panel Informationon 04-13 INR International Normalized Ratio 2.9 [facility] No Panel Informationon 03-19 INR International Normalized Ratio 2.5 [facility] No Panel Informationon 02-28 INR International Normalized Ratio 2.8 [facility] No Panel Informationon 02-17 INR International Normalized Ratio 2.6 [facility] No Panel Informationon 01-31 INR International Normalized Ratio 3.4 [facility] Absolute lymphocyte countOrd ered By: Dr. Hay on 01-23-2022 Lymphocytes Auto (Unsp spec) [#/Vol] 2.30 10*3/uL 0.83-4.51 [facility] Basophil percentageOrdered B y: Dr. Hay on 01-23-2022 Basophils/100 WBC (Bld) 0.8 % 0-1 [facility] Bilirubin [Mass/Vol] 1.10 mg/dL 0.20-1.00 [facility] Comment on above: For patients on eltr ombopag therapy, use of Dimension [place] TBIL is not recommended. Chloride [Moles/Vol] 101 mmol/L 98-107 [facility] Eosinophils/100 WBC (Bld) 3.2 % 0-5 [facility] Glucose [Mass/Vol] 134 mg/dL 74-106 [facility] Comment on above: Fasting Glucose resu lt greater than or equal to 126 mg/dL suggests DIABETES MELLITUS per A.D.A. criteria. Neutrophils (Bld) [#/Vol] 4.6 10*3/uL 2.0-7.7 [facility] Neutrophils/100 WBC (Bld) 58.4 % 47-70 [facility] Potassium [Moles/Vol] 4.8 mmol/L 3.5-5.1 [facility] Protein [Mass/Vol] 7.5 g/dL 6.4-8.2 [facility] Sodium [Moles/Vol] 135 mmol/L 136-145 [facility] WBC (Bld) [#/Vol] 7.9 10*3/uL 4.4-11.0 [facility] Blood erythrocytes count (nu mber/volume)Ordered By: Dr. Hay on 01-23-2022 RBC (Bld) [#/Vol] 4.91 10*6/uL 4.6-6.2 [facility] Blood hemoglobin measurement (mass/volume)Ordered By: Dr. Hay on 01-23-2022 Hemoglobin (Bld) [Mass/Vol] 15.3 g/dL 13.0-16.5 [facility] Blood lymphocytes/100 leukoc ytesOrdered By: Dr. Hay on 01-23-2022 Lymphocytes/100 WBC (Bld) 29.3 % 19-41 [facility] Blood monocytes/100 leukocyt esOrdered By: Dr. Hay on 01-23-2022 Monocytes/100 WBC (Bld) 8.0 % 0-10 [facility] Blood platelet mean volumeOr dered By: Dr. Hay on 01-23-2022 Platelet mean volume (Bld) [Entitic vol] 10.1 fL 6.2-12.0 [facility] Determination of erythrocyte mean corpuscular volume (MCV)Ordered By: Dr. Hay on 01-23-2022 MCV (RBC) [Entitic vol] 91.6 fL 80-94 [facility] Hematocrit Auto (Bld) [Volum e fraction]Ordered By: Dr. Hay on 01-23-2022 Hematocrit (Bld) [Volume fraction] 45.0 % 40-54 [facility] Laboratory - Chemistry and C hemistry - challengeOrdered By: Dr. Hya on 01-23-2022 ALP [Catalytic activity/Vol] 57 U/L 45-117 [facility] ALT [Catalytic activity/Vol] 64 U/L 16-61 [facility] CO2 [Moles/Vol] 26.0 mmol/L 21.0-32.0 [facility] Globulin (S) [Mass/Vol] 3.5 g/dL 2.2-4.2 [facility] Urea nitrogen/Creatinine [Mass ratio] 10.0 mg/mg 10-20 [facility] Laboratory - Hematology and Cell countsOrdered By: Dr. Hay on 01-23-2022 Erythrocyte distribution width (RBC) [Entitic vol] 45.0 fL 35.1-43.9 [facility] Erythrocyte distribution width (RBC) [Ratio] 13.3 % 11.6-14.6 [facility] Immature granulocytes/100 WBC (Bld) 0.300 % 0.0-0.9 [facility] Comment on above: IG% - Immature Granu locytes (promyelocytes, myelocytes and metamyelocytes) > 1% indicates that a LEFT SHIFT is Present. MCH (RBC) [Entitic mass] 31.2 pg 27.0-32.0 [facility] Nucleated RBC/100 WBC (Bld) [Ratio] 0 % 0-5 [facility] Laboratory - Hematology and Cell countson 01-23-2022 HbA1c (Bld) [Mass fraction] 7.6 % 4.2-6.3 [facility] MCHC Auto (RBC) [Mass/Vol]Or dered By: Dr. Hay on 01-23-2022 MCHC (RBC) [Mass/Vol] 34.0 g/dL 32-36 [facility] No Panel InformationOrdered By: Dr. Hay on 01-23-2022 Estimated GFR (MDRD) Amer 64 mL/min >60 [facility] Comment on above: GFR Calc Estimated GFR (MDRD) Non-Af Amer 53 mL/min >60 [facility] Comment on above: Non- GFR Calc Platelets bldOrdered By: Dr. Hay on 01-23-2022 Platelets (Bld) [#/Vol] 232 10*3/uL 150-450 [facility] Serum or plasma albumin musa urement (mass/volume)Ordered By: Dr. Hay on 01-23-2022 Albumin [Mass/Vol] 4.0 g/dL 3.2-5.0 [facility] Serum or plasma albumin/glob ulin mass ratioOrdered By: Dr. Hay on 01-23-2022 Albumin/Globulin [Mass ratio] 1.1 {ratio} 0.9-2.4 [facility] [facility] Serum or plasma calcium musa urement (mass/volume)Ordered By: Dr. Hay on 01-23-2022 Calcium [Mass/Vol] 9.5 mg/dL 8.5-10.1 [facility] Serum or plasma creatinine m easurement (mass/volume)Ordered By: Dr. Hay on 01-23-2022 Creatinine [Mass/Vol] 1.40 mg/dL 0.70-1.30 [facility] Comment on above: The validity of the calculated GFR & GFRAA in patients over 70 years has not been determined. Clinical correlation is essential. Serum or plasma urea nitroge n measurement (mass/volume)Ordered By: Dr. Hay on 01-23-2022 Urea nitrogen [Mass/Vol] 14 mg/dL 7-18 [facility] Thin prep Papanicolaou smear with manual screeningOrdered By: Dr. Hay on 01-23-2022 Thin prep Papanicolaou smear with manual screening 35 U/L 15-37 [facility] Thin prep Papanicolaou smear with manual screening 8 5-15 [facility] No Panel Informationon 01-17 INR International Normalized Ratio 3.1 [facility] No Panel Informationon 12-30 INR International Normalized Ratio 2.3 [facility] No Panel Informationon 12-20 INR International Normalized Ratio 1.6 [facility] Work Phone: No Panel Informationon 11-29 INR International Normalized Ratio 2.1 [facility] Work Phone: No Panel Informationon 11-15 INR International Normalized Ratio 2.2 [facility] Work Phone: No Panel Informationon 11-10 INR International Normalized Ratio 1.7 [facility] Work Phone: No Panel Informationon 10-25 INR International Normalized Ratio 1.9 [facility] Work Phone: Basophil percentageon 2021 Chloride [Moles/Vol] 103 mmol/L 98-107 [facility] Work Phone: Glucose [Mass/Vol] 131 mg/dL 74-106 [facility] Work Phone: Comment on above: Fasting Glucose resu lt greater than or equal to 126 mg/dL suggests DIABETES MELLITUS per A.D.A. criteria. Potassium [Moles/Vol] 4.6 mmol/L 3.5-5.1 [facility] Work Phone: Sodium [Moles/Vol] 137 mmol/L 136-145 [facility] Work Phone: Laboratory - Chemistry and C hemistry - challengeon 10-18-2021 CO2 [Moles/Vol] 27.0 mmol/L 21.0-32.0 [facility] Work Phone: Urea nitrogen/Creatinine [Mass ratio] 16.4 mg/mg 10-20 [facility] Work Phone: Laboratory - Hematology and Cell countson 10-18-2021 HbA1c (Bld) [Mass fraction] 6.5 % 4.2-6.3 [facility] Work Phone: No Panel Informationon 10-18 Estimated GFR (MDRD) Amer 53 mL/min >60 [facility] Work Phone: Comment on above: GFR Calc Estimated GFR (MDRD) Non-Af Amer 44 mL/min >60 [facility] Work Phone: Comment on above: Non- GFR Calc Serum or plasma calcium musa urement (mass/volume)on 10-18-2021 Calcium [Mass/Vol] 9.4 mg/dL 8.5-10.1 [facility] Work Phone: Serum or plasma creatinine m easurement (mass/volume)on 10-18-2021 Creatinine [Mass/Vol] 1.65 mg/dL 0.70-1.30 [facility] Work Phone: Comment on above: The validity of the calculated GFR & GFRAA in patients over 70 years has not been determined. Clinical correlation is essential. Serum or plasma urea nitroge n measurement (mass/volume)on 10-18-2021 Urea nitrogen [Mass/Vol] 27 mg/dL 7-18 [facility] Work Phone: Thin prep Papanicolaou smear with manual screeningon 10-18-2021 Thin prep Papanicolaou smear with manual screening 7 5-15 [facility] Work Phone: No Panel Informationon 10-11 INR International Normalized Ratio 2.1 [facility] Work Phone: No Panel Informationon 09-27 INR International Normalized Ratio 2.2 [facility] Work Phone: No Panel Informationon 09-13 INR International Normalized Ratio 2.8 [facility] Work Phone: No Panel Informationon 09-03 INR International Normalized Ratio 2.5 [facility] Work Phone: No Panel Informationon 08-16 INR International Normalized Ratio 2.6 [facility] Work Phone: CNPNon 08-05-2021 CNPN Telephone (INTMWS) -- EDUARD LEOS ([id number]) 1945 M Date Time Provider Department 08/05/21 NO PCP INTMWS During your visit today, we recorded the following information about you: Fanny Covington RN 08/05/2021 1:09 PM [facility] called in trying to get a [...] 1 tablet by mouth once daily. Dr. Lei - furosemide (LASIX) 40 mg tablet Take [...] coumadin teaching. Eval for PT. Dx; cardiomyopathy, [place], arrhythmia, CAD, anticoagulation. - COMPOUNDED PRESCRIPTION S/P ablation for VT. Pt requires INR, assessment and eval VS, coumadin and HF teaching. Dx: Cardiomyopathy, [place], ventricular arrhythmia, CAD, anticoagulation. - magnesium oxide [...] Lung nodu (more content not included)... Normal [facility] No Panel Informationon 08-02 INR International Normalized Ratio 2.3 [facility] Work Phone: No Panel Informationon 07-19 INR International Normalized Ratio 2.1 [facility] Work Phone: Laboratory - Hematology and Cell countson 07-17-2021 HbA1c (Bld) [Mass fraction] 7.6 % 4.2-6.3 [facility] Work Phone: No Panel Informationon 07-05 INR International Normalized Ratio 2.4 [facility] Work Phone: Glucose Glucometer (BldC) [M ass/Vol]on 07-04-2021 Glucose [Mass/Vol] 130 mg/dL 74-106 [facility] Work Phone: Comment on above: MANAGEMENT OF PATIEN T CARE PER NURSING PROTOCOL Laboratory - Coagulationon 0 07-04-2021 INR Coag (Bld) [Relative time] 2.4 {INR} [facility] Work Phone: Comment on above: Critical Value > 4.0 Whole blood prothrombin time on 07-04-2021 PT Coag (Bld) [Time] 28.2 s 11.7-14.9 [facility] Work Phone: No Panel Informationon 06-25 INR International Normalized Ratio 2.7 [facility] Work Phone: Basophil percentageon 2021 Basophil percentage 0-5 SEEN /hpf 0-5 [facility] Work Phone: Chloride [Moles/Vol] 98 mmol/L 98-107 [facility] Work Phone: Glucose [Mass/Vol] 130 mg/dL 74-106 [facility] Work Phone: Comment on above: Fasting Glucose resu lt greater than or equal to 126 mg/dL suggests DIABETES MELLITUS per A.D.A. criteria. Potassium [Moles/Vol] 4.4 mmol/L 3.5-5.1 [facility] Work Phone: Sodium [Moles/Vol] 134 mmol/L 136-145 [facility] Work Phone: WBC (Bld) [#/Vol] 10.1 10*3/uL 4.4-11.0 [facility] Work Phone: Bilirubin Test strip Ql (U)o n 06-17-2021 Bilirubin Ql (U) Negative Negative [facility] Work Phone: Blood erythrocytes count (nu mber/volume)on 06-17-2021 RBC (Bld) [#/Vol] 5.02 10*6/uL 4.6-6.2 [facility] Work Phone: Blood hemoglobin measurement (mass/volume)on 06-17-2021 Hemoglobin (Bld) [Mass/Vol] 15.8 g/dL 13.0-16.5 [facility] Work Phone: Blood platelet mean volumeon 06-17-2021 Platelet mean volume (Bld) [Entitic vol] 10.0 fL 6.2-12.0 [facility] Work Phone: Determination of erythrocyte mean corpuscular volume (MCV)on 06-17-2021 MCV (RBC) [Entitic vol] 94.0 fL 80-94 [facility] Work Phone: Hematocrit Auto (Bld) [Volum e fraction]on 06-17-2021 Hematocrit (Bld) [Volume fraction] 47.2 % 40-54 [facility] Work Phone: Ketones Test strip Ql (U)on 06-17-2021 Ketones Ql (U) Negative Negative [facility] Work Phone: Laboratory - Chemistry and C hemistry - challengeon 06-17-2021 CO2 [Moles/Vol] 27.0 mmol/L 21.0-32.0 [facility] Work Phone: Natriuretic peptide B (Bld) [Mass/Vol] 23.9 pg/mL 0-100 [facility] Work Phone: Urea nitrogen/Creatinine [Mass ratio] 13.4 mg/mg 10-20 [facility] Work Phone: Laboratory - Coagulationon 0 06-17-2021 PT Coag (PPP) [Time] 22.5 s 11.7-14.9 [facility] Work Phone: Laboratory - Hematology and Cell countson 06-17-2021 Erythrocyte distribution width (RBC) [Entitic vol] 46.4 fL 35.1-43.9 [facility] Work Phone: Erythrocyte distribution width (RBC) [Ratio] 13.4 % 11.6-14.6 [facility] Work Phone: MCH (RBC) [Entitic mass] 31.5 pg 27.0-32.0 [facility] Work Phone: MCHC Auto (RBC) [Mass/Vol]on 06-17-2021 MCHC (RBC) [Mass/Vol] 33.5 g/dL 32-36 [facility] Work Phone: Mucus LM Ql (Urine sed)on Mucus Ql (Urine sed) 0 SEEN /hpf [facility] Work Phone: Nitrite Test strip Ql (U)on 06-17-2021 Nitrite Ql (U) Negative Negative [facility] Work Phone: No Panel Informationon 06-17 Estimated GFR (MDRD) Amer 50 mL/min >60 [facility] Work Phone: Comment on above: GFR Calc Estimated GFR (MDRD) Non-Af Amer 42 mL/min >60 [facility] Work Phone: Comment on above: Non- GFR Calc Platelets bldon 06-17-2021 Platelets (Bld) [#/Vol] 263 10*3/uL 150-450 [facility] Work Phone: Protein Test strip Ql (U)on 06-17-2021 Protein Ql (U) Negative Negative [facility] Work Phone: Serum or plasma calcium musa urement (mass/volume)on 06-17-2021 Calcium [Mass/Vol] 9.9 mg/dL 8.5-10.1 [facility] Work Phone: Serum or plasma creatinine m easurement (mass/volume)on 06-17-2021 Creatinine [Mass/Vol] 1.72 mg/dL 0.70-1.30 [facility] Work Phone: Comment on above: The validity of the calculated GFR & GFRAA in patients over 70 years has not been determined. Clinical correlation is essential. Serum or plasma urea nitroge n measurement (mass/volume)on 06-17-2021 Urea nitrogen [Mass/Vol] 23 mg/dL 7-18 [facility] Work Phone: [phone] Squamous epithelial cells de tection in urine sediment by light microscopyon 06-17-2021 Epithelial cells.squamous LM Ql (Urine sed) 0-5 SEEN /hpf 0-5 [facility] Work Phone: Thin prep Papanicolaou smear with manual screeningon 06-17-2021 Thin prep Papanicolaou smear with manual screening 9 5-15 [facility] Work Phone: Urine blood detectionon -0 RBC Ql (U) Negative Negative [facility] Work Phone: RBC Ql (U) 0-5 SEEN /hpf 0-5 [facility] Work Phone: Urine clarityon 06-17-2021 Clarity (U) Clear Clear [facility] Work Phone: Urine color determinationon 06-17-2021 Color (U) Yellow Yellow [facility] Work Phone: [phone] Urine glucose detectionon Glucose Ql (U) Normal mg/dl Normal [facility] Work Phone: [phone] Urine leukocyte esterase det ection by dipstickon 06-17-2021 Leukocyte esterase Test strip Ql (U) Negative Negative [facility] Work Phone: [phone] Urine pHon 06-17-2021 pH (U) 6.0 [pH] 5.0 - 8.0 [facility] Work Phone: Urine sediment bacteria coun t by microscopy (number/high power field)on 06-17-2021 Bacteria LM.HPF (Urine sed) [#/Area] 1 /[HPF] None Seen [facility] Work Phone: [phone] Urine specific gravity measu rementon 06-17-2021 Specific gravity (U) [Rel density] 1.015 1.002-1.03 0 [facility] Work Phone: [phone] Urobilinogen Auto test strip Ql (U)on 06-17-2021 Urobilinogen Ql (U) Normal mg/dl Normal [facility] Work Phone: No Panel Informationon 06-14 INR International Normalized Ratio 2.3 [facility] Work Phone: No Panel Informationon 06-07 INR International Normalized Ratio 1.6 [facility] Work Phone: Basophil percentageon 2021 Chloride [Moles/Vol] 101 mmol/L 98-107 [facility] Work Phone: Glucose [Mass/Vol] 209 mg/dL 74-106 [facility] Work Phone: Comment on above: Glucose result great er than or equal to 200 mg/dLsuggests DIABETES MELLITUS per A.D.A. criteria. Potassium [Moles/Vol] 4.3 mmol/L 3.5-5.1 [facility] Work Phone: Sodium [Moles/Vol] 135 mmol/L 136-145 [facility] Work Phone: Laboratory - Chemistry and C hemistry - challengeon 06-05-2021 CO2 [Moles/Vol] 26.0 mmol/L 21.0-32.0 [facility] Work Phone: Urea nitrogen/Creatinine [Mass ratio] 12.2 mg/mg 10-20 [facility] Work Phone: No Panel Informationon 06-05 Estimated GFR (MDRD) Amer 60 mL/min >60 [facility] Work Phone: Comment on above: GFR Calc Estimated GFR (MDRD) Non-Af Amer 50 mL/min >60 [facility] Work Phone: Comment on above: Non- GFR Calc Serum or plasma calcium musa urement (mass/volume)on 06-05-2021 Calcium [Mass/Vol] 9.6 mg/dL 8.5-10.1 [facility] Work Phone: Serum or plasma creatinine m easurement (mass/volume)on 06-05-2021 Creatinine [Mass/Vol] 1.47 mg/dL 0.70-1.30 [facility] Work Phone: Comment on above: The validity of the calculated GFR & GFRAA in patients over 70 years has not been determined. Clinical correlation is essential. Serum or plasma urea nitroge n measurement (mass/volume)on 06-05-2021 Urea nitrogen [Mass/Vol] 18 mg/dL 7-18 [facility] Work Phone: Thin prep Papanicolaou smear with manual screeningon 06-05-2021 Thin prep Papanicolaou smear with manual screening 8 5-15 [facility] Work Phone: No Panel Informationon 05-31 INR International Normalized Ratio 1.5 [facility] Work Phone: No Panel Informationon 05-17 INR International Normalized Ratio 1.8 [facility] Work Phone: No Panel Informationon 05-03 INR International Normalized Ratio 2.3 [facility] Work Phone: Basophil percentageon 2021 Basophil percentage 0 SEEN /hpf 0-5 [facility] Work Phone: Bilirubin Test strip Ql (U)o n 05-02-2021 Bilirubin Ql (U) Negative Negative [facility] Work Phone: Ketones Test strip Ql (U)on 05-02-2021 Ketones Ql (U) Negative Negative [facility] Work Phone: Mucus LM Ql (Urine sed)on Mucus Ql (Urine sed) 0 SEEN /hpf [facility] Work Phone: Nitrite Test strip Ql (U)on 05-02-2021 Nitrite Ql (U) Negative Negative [facility] Work Phone: Protein Test strip Ql (U)on 05-02-2021 Protein Ql (U) Negative Negative [facility] Work Phone: Squamous epithelial cells de tection in urine sediment by light microscopyon 05-02-2021 Epithelial cells.squamous LM Ql (Urine sed) 0-5 SEEN /hpf 0-5 [facility] Work Phone: Urine blood detectionon - RBC Ql (U) Negative Negative [facility] Work Phone: RBC Ql (U) 0 SEEN /hpf 0-5 [facility] Work Phone: Urine clarityon 05-02-2021 Clarity (U) Clear Clear [facility] Work Phone: Urine color determinationon 05-02-2021 Color (U) Yellow Yellow [facility] Work Phone: Urine glucose detectionon Glucose Ql (U) 1000 mg/dl Normal [facility] Work Phone: Urine leukocyte esterase det ection by dipstickon 05-02-2021 Leukocyte esterase Test strip Ql (U) Negative Negative [facility] Work Phone: Urine pHon 05-02-2021 pH (U) 5.0 [pH] 5.0 - 8.0 [facility] Work Phone: Urine sediment bacteria coun t by microscopy (number/high power field)on 05-02-2021 Bacteria LM.HPF (Urine sed) [#/Area] 0 /[HPF] None Seen [facility] Work Phone: Urine specific gravity measu rementon 05-02-2021 Specific gravity (U) [Rel density] 1.020 1.002-1.03 0 [facility] Work Phone: Urobilinogen Auto test strip Ql (U)on 05-02-2021 Urobilinogen Ql (U) Normal mg/dl Normal [facility] Work Phone: [phone] Absolute lymphocyte counton 04-30-2021 Lymphocytes Auto (Unsp spec) [#/Vol] 2.14 10*3/uL 0.83-4.51 [facility] Work Phone: [phone] Basophil percentageon 2021 Basophils/100 WBC (Bld) 0.4 % 0-1 [facility] Work Phone: Bilirubin [Mass/Vol] 1.50 mg/dL 0.20-1.00 [facility] Work Phone: [phone] Comment on above: For patients on eltr ombopag therapy, use of Dimension [place] TBIL is not recommended. Chloride [Moles/Vol] 95 mmol/L 98-107 [facility] Work Phone: Eosinophils/100 WBC (Bld) 1.0 % 0-5 [facility] Work Phone: Glucose [Mass/Vol] 362 mg/dL 74-106 [facility] Work Phone: Comment on above: Glucose result great er than or equal to 200 mg/dLsuggests DIABETES MELLITUS per A.D.A. criteria. Neutrophils (Bld) [#/Vol] 5.9 10*3/uL 2.0-7.7 [facility] Work Phone: Neutrophils/100 WBC (Bld) 65.9 % 47-70 [facility] Work Phone: Potassium [Moles/Vol] 4.7 mmol/L 3.5-5.1 [facility] Work Phone: Protein [Mass/Vol] 7.9 g/dL 6.4-8.2 [facility] Work Phone: Sodium [Moles/Vol] 129 mmol/L 136-145 [facility] Work Phone: WBC (Bld) [#/Vol] 9.0 10*3/uL 4.4-11.0 [facility] Work Phone: Blood erythrocytes count (nu mber/volume)on 04-30-2021 RBC (Bld) [#/Vol] 5.20 10*6/uL 4.6-6.2 [facility] Work Phone: Blood hemoglobin measurement (mass/volume)on 04-30-2021 Hemoglobin (Bld) [Mass/Vol] 16.7 g/dL 13.0-16.5 [facility] Work Phone: Blood lymphocytes/100 leukoc yteson 03-22-2022 Lymphocytes/100 WBC (Bld) 23.8 % 19-41 [facility] Work Phone: [phone] Blood monocytes/100 leukocyt eson 04-30-2021 Monocytes/100 WBC (Bld) 8.6 % 0-10 [facility] Work Phone: [phone] Blood platelet mean volumeon 04-30-2021 Platelet mean volume (Bld) [Entitic vol] 10.6 fL 6.2-12.0 [facility] Work Phone: [phone] Determination of erythrocyte mean corpuscular volume (MCV)on 04-30-2021 MCV (RBC) [Entitic vol] 92.5 fL 80-94 [facility] Work Phone: [phone] Erythrocyte sedimentation ra lorrie 04-30-2021 ESR (Bld) [Velocity] 9 mm/h 0-20 [facility] Work Phone: [phone] Hematocrit Auto (Bld) [Volum e fraction]on 04-30-2021 Hematocrit (Bld) [Volume fraction] 48.1 % 40-54 [facility] Work Phone: [phone] Laboratory - Chemistry and C hemistry - challengeon 04-30-2021 ALP [Catalytic activity/Vol] 108 U/L 45-117 [facility] Work Phone: [phone] ALT [Catalytic activity/Vol] 53 U/L 16-61 [facility] Work Phone: [phone] CO2 [Moles/Vol] 29.0 mmol/L 21.0-32.0 [facility] Work Phone: [phone] Free T4 [Mass/Vol] 1.07 ng/dL 0.76-1.46 [facility] Work Phone: [phone] Globulin (S) [Mass/Vol] 4.0 g/dL 2.2-4.2 [facility] Work Phone: [phone] Urea nitrogen/Creatinine [Mass ratio] 10.5 mg/mg 10-20 [facility] Work Phone: [phone] Laboratory - Hematology and Cell countson 04-30-2021 Erythrocyte distribution width (RBC) [Entitic vol] 44.1 fL 35.1-43.9 [facility] Work Phone: Erythrocyte distribution width (RBC) [Ratio] 13.0 % 11.6-14.6 [facility] Work Phone: Immature granulocytes/100 WBC (Bld) 0.300 % 0.0-0.9 [facility] Work Phone: Comment on above: IG% - Immature Granu locytes (promyelocytes, myelocytes and metamyelocytes) > 1% indicates that a LEFT SHIFT is Present. MCH (RBC) [Entitic mass] 32.1 pg 27.0-32.0 [facility] Work Phone: Nucleated RBC/100 WBC (Bld) [Ratio] 0 % 0-5 [facility] Work Phone: MCHC Auto (RBC) [Mass/Vol]on 04-30-2021 MCHC (RBC) [Mass/Vol] 34.7 g/dL 32-36 [facility] Work Phone: No Panel Informationon 04-30 Estimated GFR (MDRD) Amer 58 mL/min >60 [facility] Work Phone: Comment on above: GFR Calc Estimated GFR (MDRD) Non-Af Amer 48 mL/min >60 [facility] Work Phone: Comment on above: Non- GFR Calc Prostate Specific Antigen Screen 0.60 ng/mL 0.00-4.00 [facility] Work Phone: Comment on above: This test was perfor med using the TPSA assay method for the[facility] system. Values obtained with differentassay methods cannot be used interchangably.When changing PSA assays in the course of monitoring apatient, additional sequential testing should be carriedout to confirm baseline values. Thyroid Stimulating Hormone (TSH) 1.56 uIU/mL 0.358-3.74 [facility] Work Phone: Platelets bldon 04-30-2021 Platelets (Bld) [#/Vol] 264 10*3/uL 150-450 [facility] Work Phone: Serum or plasma albumin musa urement (mass/volume)on 04-30-2021 Albumin [Mass/Vol] 3.9 g/dL 3.2-5.0 [facility] Work Phone: Serum or plasma albumin/glob ulin mass ratioon 04-30-2021 Albumin/Globulin [Mass ratio] 1.0 {ratio} 0.9-2.4 [facility] Work Phone: Serum or plasma calcium musa urement (mass/volume)on 04-30-2021 Calcium [Mass/Vol] 9.1 mg/dL 8.5-10.1 [facility] Work Phone: Serum or plasma creatinine m easurement (mass/volume)on 04-30-2021 Creatinine [Mass/Vol] 1.52 mg/dL 0.70-1.30 [facility] Work Phone: Comment on above: The validity of the calculated GFR & GFRAA in patients over 70 years has not been determined. Clinical correlation is essential. Serum or plasma urea nitroge n measurement (mass/volume)on 04-30-2021 Urea nitrogen [Mass/Vol] 16 mg/dL 7-18 [facility] Work Phone: Thin prep Papanicolaou smear with manual screeningon 04-30-2021 Thin prep Papanicolaou smear with manual screening 31 U/L 15-37 [facility] Work Phone: Thin prep Papanicolaou smear with manual screening 5 5-15 [facility] Work Phone: Whole blood hemoglobin A1c/t otal hemoglobin ratio (mass fraction)on 04-30-2021 HbA1c (Bld) [Mass fraction] 11.5 % 3.8-5.6 [facility] Work Phone: Comment on above: Normal < 5.7 % Predi abetic 5.7 - 6.4 % Diabetic >or= 6.5 % Please note range changes. No Panel Informationon 04-19 INR International Normalized Ratio 2.6 [facility] Work Phone: No Panel Informationon 03-18 INR International Normalized Ratio 2.4 [facility] Work Phone: No Panel Informationon 02-13 INR International Normalized Ratio 2.4 [facility] Work Phone: No Panel Informationon 01-11 INR International Normalized Ratio 2.1 [facility] Work Phone: CNOVon 12-18-2020 CNOV Office Visit (INTMWS ) -- CHARISSAEDUARD PRYOR ([id number]) 1945 M Date Time Provider Department 12/18/20 2:40 PM NIDIA GEIGER INTMWS During your visit today, we recorded the following information about you: Pulse Respiration Blood pressure Weight 84/minute 18/minute 100/62 104.3 kg Nidia Geiger MD 02/18/2021 12:30 AM Signed This note was created using [employer]. Subjective Eduard Leos is a 75 year [...] Brain Tumor 02/26/2009 [facility] - Coronary atherosclerosis of unspecified type of vessel, mi'kmaq or graft coumadin managed by cardiology (Dr. [...] mostly using PM ) - COMPOUNDED PRESCRIPTION [facility] S/P ablation for INR checks, assessment and eval of VS, HF and coumadin teaching. Eval for PT. Dx; cardiomyopathy, [place], arrhythmia, CAD, anticoagulation. - COMPOUNDED PRESCRIPTION S/P ablation for VT. Pt requires INR, assessment and eval VS, coumadin and HF teaching. Dx: Cardiomyopathy, [place], ventricular arrhythmia, CAD, anticoagulation. No current facility-administered medications for this visit. Review of Systems Objective BP 100/62 Pulse 84 Resp 18 Wt 104.3 kg (230 lb) BMI 33.97 kg/m? Physical Exam Vitals reviewed. Constitutional: Appearance: Normal appearan (more content not included)... Normal [facility] Albumin/Creat Ratioon 2020 Albumin Urine Random <12.0 Normal [facility] Comment on above: Performed By: #### U ACR ####[facility] [id number] [place], [place] [phone] Albumin/Creat Ratio Not calculated Normal <30 C [facility] Comment on above: Performed By: #### U ACR ####[address] [phone] Creatinine,Urine,Ran 41.3 mg/dL Normal 20-300 [facility] Comment on above: Performed By: #### U ACR ####[place] [phone] Comp Metabolic Panelon 12-13 Albumin [Mass/Vol] 4.3 g/dL Normal 3.9-4.9 [facility] Comment on above: Performed By: #### L IPNF, PSAS1, HBA1C, CMP ####[place] [phone] ALP [Catalytic activity/Vol] 82 U/L Normal 38-113 [facility] Comment on above: Performed By: #### L IPNF, PSAS1, HBA1C, CMP ####[place] [phone] ALT [Catalytic activity/Vol] 43 U/L Normal 10-54 [facility] Comment on above: Performed By: #### L IPNF, PSAS1, HBA1C, CMP ####[place] [phone] Anion gap [Moles/Vol] 14 mmol/L Normal 9-18 [facility] Comment on above: Performed By: #### L IPNF, PSAS1, HBA1C, CMP ####[place] [phone] AST [Catalytic activity/Vol] 37 U/L Normal 14-40 [facility] Comment on above: Performed By: #### L IPNF, PSAS1, HBA1C, CMP ####[address] [phone] Bilirubin [Mass/Vol] 1.4 mg/dL High 0.2-1.3 [facility] Comment on above: Performed By: #### L IPNF, PSAS1, HBA1C, CMP ####[place] [address], [place] [phone] Calcium [Mass/Vol] 9.9 mg/dL Normal 8.5-10.2 [facility] Comment on above: Performed By: #### L IPNF, PSAS1, HBA1C, CMP ####[place] [phone] Chloride [Moles/Vol] 97 mmol/L Normal 97-105 [facility] Comment on above: Performed By: #### L IPNF, PSAS1, HBA1C, CMP ####[address] [place] [place] [phone] CO2 [Moles/Vol] 24 mmol/L Normal 22-30 [facility] Comment on above: Performed By: #### L IPNF, PSAS1, HBA1C, CMP ####[place] [phone] Creatinine [Mass/Vol] 1.29 mg/dL High 0.73-1.22 [facility] Comment on above: Performed By: #### L IPNF, PSAS1, HBA1C, CMP ####[place] [address], [place] [phone] eGFR- Amer. >60 Normal [facility] Comment on above: Performed By: #### L IPNF, PSAS1, HBA1C, CMP ####[place] [address], [place] [phone] eGFR-All Other Races 55 . Normal [facility] Comment on above: Result Comment: eGFR [...] By: #### L IPNF, PSAS1, HBA1C, CMP ####[address] [phone] Glucose [Mass/Vol] 238 mg/dL High 74-99 [facility] Comment on above: Result Comment: The [place] Diabetes Association (ADA) provides guidance for cutoff [...] Standards of Medical Care in Diabetes 2016, [place] Diabetes Association. Diabetes Care. 2016.39(Suppl 1). Performed By: #### L IPNF, PSAS1, HBA1C, CMP ####[address] [phone] Potassium [Moles/Vol] 4.8 mmol/L Normal 3.7-5.1 [facility] Comment on above: Performed By: #### L IPNF, PSAS1, HBA1C, CMP ####[address] [phone] Protein [Mass/Vol] 7.2 g/dL Normal 6.3-8.0 [facility] Comment on above: Performed By: #### L IPNF, PSAS1, HBA1C, CMP ####[address] [phone] Sodium [Moles/Vol] 135 mmol/L Low 136-144 [facility] Comment on above: Performed By: #### L IPNF, PSAS1, HBA1C, CMP ####[address] [phone] Urea nitrogen [Mass/Vol] 15 mg/dL Normal 9-24 [facility] Comment on above: Performed By: #### L IPNF, PSAS1, HBA1C, CMP ####[address] [phone] Hemoglobin A1con 12-13-2020 Glucose [Mass/Vol] 194 mg/dL Normal [facility] Comment on above: Result Comment: eAG: (Estimated average glucose) is a calculated value from HgbA1c and is farm loan representative of the average blood glucose level in the last 2-3 month period. Performed By: #### L IPNF, PSAS1, HBA1C, CMP ####[address] [phone] HbA1c (Bld) [Mass fraction] 8.4 % High 4.3-5.6 [facility] Comment on above: Result Comment: Amer ican Diabetes Association guidelines indicate that patients with HgbA1c in the range 5.7-6.4% are at increased risk for development of diabetes, and intervention by lifestyle modification may be beneficial. HgbA1c greater or equal to 6.5% is considered diagnostic of diabetes. Performed By: #### L IPNF, PSAS1, HBA1C, CMP ####[address] [phone] Lipid Panel, Nonfaston 12-13 Cholesterol [Mass/Vol] 171 mg/dL Normal <200 [facility] [place] [facility] Comment on above: Result Comment: <200 mg/dL, Desirable 200-239 mg/dL, Borderline high >239 mg/dL, High Performed By: #### L IPNF, PSAS1, HBA1C, CMP ####[address] [phone] HDL Cholesterol, NF 37 mg/dL Low >39 [facility] Comment on above: Result Comment: 40-5 9 mg/dL, Acceptable >59 mg/dL, High: Negative risk factor for coronary heart disease <40 mg/dL, Low: Positive risk factor for coronary heart disease Performed By: #### L IPNF, PSAS1, HBA1C, CMP ####[facility], [place] [phone] LDL Cholesterol, NF 57 mg/dL Normal <100 [facility] Comment on above: Result Comment: <100 mg/dL, Optimal 100-129 mg/dL, Near optimal/above optimal 130-159 mg/dL, Borderline high 160-189 mg/dL, High >189 mg/dL, Very high Secondary prevention optimal LDL Cholesterol levels are recommended to be < 70 mg/dL Performed By: #### L IPNF, PSAS1, HBA1C, CMP ####[address] [phone] LDL/HDL Ratio, NF 1.54 mg/dL Normal <2.54 [facility] Comment on above: Result Comment: Refe rence: 1. National Cholesterol Education Program ATP III Guideline At-A-Glance Quick Desk Reference: National Heart, Lung, and Blood [place]. National Institutes of Health. 2001: NIH Publication No. 01-3305. 2. An International Atherosclerosis Society position paper: global recommendations for the management of dyslipidemia: executive summary, Atherosclerosis. 2014: 232(2):410-413. Performed By: #### L IPNF, PSAS1, HBA1C, CMP ####[place] [address] [place], [place] [phone] Non HDL Chol, NF 134 mg/dL High <130 [facility] Comment on above: Result Comment: <130 mg/dL, Optimal 130-159 mg/dL, Near optimal/above optimal 160-189 mg/dL, Borderline high 190-219 mg/dL, High >219 mg/dL, Very high Secondary prevention optimal non HDL Cholesterol levels are recommended to be < 100 mg/dL Performed By: #### L IPNF, PSAS1, HBA1C, CMP ####[facility], [place] [phone] T Chol/HDL Ratio NF 4.62 mg/dL Normal <5.10 [facility] Comment on above: Performed By: #### L IPNF, PSAS1, HBA1C, CMP ####[facility] [address], [place] [phone] Triglycerides, NF 384 mg/dL High <150 [facility] Comment on above: Result Comment: <150 mg/dL, Normal 150-199 mg/dL, Borderline high 200-499 mg/dL, High >499 mg/dL, Very high Performed By: #### L IPNF, PSAS1, HBA1C, CMP ####[facility] [address], [place] [phone] VLDL Cholesterol, NF 77 mg/dL High <30 [facility] Comment on above: Performed By: #### L IPNF, PSAS1, HBA1C, CMP ####[facility] [address], [place] [phone] CNOV[facility] 10-26-[facility] EDUARD LEOS ([id number]) 1945 M Date Time Provider Department 10/26/20 1:20 PM [facility] During your visit today, we recorded the following information about you: Pulse Respiration Blood pressure Weight 81/minute 20/minute 94/62 101.6 kg Irma López APRN.CNP 10/26/2020 2:23 PM Signed This is a 75 year old male who presents today with: Patient presents with: Follow Up: [facility] HISTORY OF PRESENT ILLNESS: Eduard Leos is a 75 year old male. Patient presents with: Follow Up: [facility] Here in the office for hospital follow up. HOSPITAL/ER FOLLOW UP: Reason for visit: Lumbar back pain Which facility: [facility] Date of visit: 10/07/2020 Diagnosis: Lumbar strain. [...] Brain Tumor 02/26/2009 benign [facility] - Coronary atherosclerosis of unspecified type of vessel, mi'kmaq or graft coumadin managed by cardiology (Dr. [...] Dr. Dennison - COLONOSCOP W/ OR W/O [facility] SPEC 12/06/2018 Colonoscopy - EGD W/O [...] ambulation: P (more content not included)... Normal [facility] CNOVon 10-02-2020 CNOV Office Visit ([facility] ) -- EDUARD LEOS ([id number]) 1945 M Date Time Provider Department 10/02/20 1:45 PM SONU JIMENEZ [facility] During your visit today, we recorded the following information about you: Temperature Pulse Respiration Blood pressure 97.8 degrees 73/minute 18/minute 104/70 Weight 103.2 kg Sonu Jimenez APRN.[employer] 10/02/2020 2:27 PM Signed Subjective HPI Nontoxic-appearing [...] Brain Tumor 02/26/2009 benign [facility] - Coronary atherosclerosis of unspecified type of vessel, mi'kmaq or graft coumadin managed by cardiology (Dr. [...] mouth once daily. As needed COMPOUNDED PRESCRIPTION [facility] health S/P ablation for INR checks, assessment and eval of VS, HF and coumadin teaching. Eval for PT.Dx; cardiomyopathy, [place], arrhythmia, CAD, anticoagulation. COMPOUNDED PRESCRIPTION S/P ablation for VT. Pt requires INR, assessment and eval VS, coumadin and HF teaching. Dx: Cardiomyopathy, [place], ventricular arrhythmia, CAD, anticoagulation. magnesium oxide (MAG-OX) [...] Cancer Siste (more content not included)... Normal [facility] XR Thoracic spine AP and Lat eral and Swimmerson 06-07-2020 IMPRESSION: Degenerative changes of the thoracic spine without acute osseous abnormality. Spinneret Cleaner: JAYSHREE Transcribe Date/Time: Jun 07 2020 8:19A Dictated by : KARI HERRERA MD This examination was interpreted and the report reviewed and electronically signed by: KARI EHRRERA MD on Jun 07 2020 8:22AM [facility] DIVISION OF RADIOLOGY * * [...] are grossly clear. DIVISION OF RADIOLOGY Provider, [facility] - 06/07/2020 * * *Final Report* * [...] the thoracic spine without acute osseous abnormality. Spinneret Cleaner: PSCSilverio Transcribe Date/Time: Jun 07 2020 8:19A Dictated by : KARI HERRERA MD This examination was interpreted and the report reviewed and electronically signed by: KARI HERRERA MD on Jun 07 2020 8:22AM EST [facility] XR Thoracic spine AP and Lat eral and SwimmersOrdered By: [facility] Provider on 06-07-[address] [facility] No Panel Informationon 06-06 Radiology Study observation (narrative) [facility] X[facility] Chest PA and Lateralon IMPRESSION: Improved bibasilar atelectasis. Spinneret Cleaner: JAYSHREE Transcribe Date/Time: Jun 06 2020 5:30P Dictated by : SHARRI GALAVIZ MD This examination was interpreted and the report reviewed and electronically signed by: SHARRI GALAVIZ MD on Jun 06 2020 5:32PM [facility] DIVISION OF RADIOLOGY * * [...] shows degenerative changes. DIVISION OF RADIOLOGY Provider, [facility] - 06/06/2020 * * *Final Report* * [...] degenerative changes. IMPRESSION IMPRESSION: Improved bibasilar atelectasis. Spinneret Cleaner: JAYSHREE Transcribe Date/Time: Jun 06 2020 5:30P Dictated by : SHARRI GALAVIZ MD This examination was interpreted and the report reviewed and electronically signed by: SHARRI GALAVIZ MD on Jun 06 2020 5:32PM EST [facility] CNOVon 12-10-2018 CNOV Office Visit ([facility]) -- EDUARD LEOS ([id number]) 1945 M Date Time Provider Department 12/10/18 [...] dyspnea or syncope. Recently quit smoking. In 2018 his amiodarone was discontinued due to concern [...] dilated cardiomyopathy (HCC) [I25.5, I42.0] Atherosclerosis of mi'kmaq coronary artery of mi'kmaq heart without angina pectoris [I25.10] Essential hypertension [I10] Order(s):ECG B/O W INTERP (MED OFFICE) [ECG06] Order #: [id number] Prescriptions as of 12/10/2018 Sig: CYCLOBENZAPRINE 10 [...] 12/10/2018 1:43 PM >> ALVINA COLON MA Dec 10, 2018 1:43 PM Not taking WARFARIN 3 MG TABLET >> Alivna Colon MA 12/10/2018 1:43 PM >> AVLINA COLON MA Dec 10, 2018 1:43 PM Not taking Problem [...] Status:Closed by SOWMYA DENNISON MD on 12/10/18 Normal [facility] PROGRESSon 12-10-2018 PROGRESS HNO ID: [id number] Author: Sowmya Dennison Service: ? Author Type: [...] pallor. Psychiatric: Mood and affect normal. Normal [facility] OBSOLETEon 02-15-2018 OBSOLETE Procedure ([facility]) -- EDUARD LEOS ([id number]) 1945 M Date Time Provider Department 02/15/18 11:00 AM [facility] During your visit today, we recorded the following information about you: Hand Box Folder: Facesheet ID: [id number] 02/15/2018 12:00 AM Author: PATRICIA PROVIDER Signed by CCYolande PROVIDER on 02/15/2018 at 10:51 AM Document text: Display document [id number] only Referring Provider: SOWMYA DENNISON [[id number]] Allergies As of Date: 02/15/2018 Noted Allergy [...] by mouth. every other d* COMPOUNDED PRESCRIPTION [facility] S/P ablation for * COMPOUNDED PRESCRIPTION [...] Status:Closed by ESAU MEHTA on 02/15/18 Normal [facility] CT ABDOMEN AND PELVIS W/O CO NTRASTon 04-14-2017 CT ABDOMEN AND PELVIS W/O CONTRAST Performed at [facility] APPROVED BY: Meño Malave MD EXAM TITLE:CT [...] the patient is at low risk. Normal [facility] ANES Chelsy 02-11-2017 ANES POST HNO ID: [id number] thor: Kamron Mixervice: AnesthesiologyAuthor Type: AnesthesiologistType: Anesthesia [...] Remarks:SIGNATURE: Kamron Hull MD PATIENT NAME: Eduard KennedypepperDATE: February 11, 2017 : 8:53 PM PAGER/CONTACT #: anesthesia [facility] ANES PREOPon 02-11-2017 ANES PREOP HNO ID: [id number] thor: Kamron Mixervice: AnesthesiologyAuthor Type: AnesthesiologistType: Anesthesia PreOpFiled: 02/11/2017 1:32 PMNote Text: ANESTHESIOLOGY DAY OF SURGERY NOTESERVICE DATE: 02/11/2017SERVICE TIME:1332DOB: 1945Procedure(s) (LRB):EGD WITH BIOPSY (N/A)Surgeon(s):Tj MaanEstimated body [...] Brain Tumor 02/26/2009 benign [facility]- Coronary atherosclerosis of unspecified type of vessel, mi'kmaq or graft coumadin managed by cardiology (Dr. [...] Never Used Comment: 2.5 packs per week (cjer did quit)- Alcohol use No Comment: no [...] mouth every 6 hours asneeded (dizziness).COMPOUNDED PRESCRIPTION [facility] S/P ablation for INR checks,assessment and eval of VS, HF and coumadin teaching. Eval for PT.Dx;cardiomyopathy, [place], arrhythmia, CAD, anticoagulation.COMPOUNDED PRESCRIPTION S/P ablation for VT. Pt requires INR,assessment and eval VS, coumadin and HF teaching. Dx: Cardiomyopathy, [place],ventricular arrhythmia, CAD, anticoagulation.nitroglyce rin sublingual (NITROQUICK) 0.4 mg SL tablet Dissolve 1 tabletunder the tongue as needed. FOR CHEST PAIN. IF NO RELIEF CALL 911warfarin (COUMADIN) 2 mg tablet Take 1 tablet by mouth daily as directed.fluticasone (FLONASE) 50 mcg/actuation nasal spray Use 1 Fenton in eachnostril once daily. As directedmagnesium oxide (MAG-OX) 400 mg tablet 1 tablet twice weeklyCurrent Facility-Administered Medications:NaCl 0.9% iv infusion 30 mL/hr INTRAVENOUS CONTINUOUS Tj Wilbur MarleyLast Rate: 30 mL/hr at 02/11/17 1205 30 [...] February 11, 2017 : 1:32 PM CSN: [id number] [facility] NURSING PROGon 02-11-2017 NURSING PROG HNO ID: [id number] thor: Cordelia (Rn) Christie, RNService: (none)Author Type: Registered NurseType: Nursing Progress NoteFiled: 02/11/2017 4:00 PMNote Text:@ 1440 Pt received to PACU, via cart, from Endo. Pt sedated - rouseseasily AND briefly - [...] aspre-procedure.@ 1600 Discharged to home via w/c. [facility] NURSING PROG HNO ID: [id number] thor: Abbie MontesRn) Clark Romeice: NursingAuthor Type: Registered NurseType: Nursing Progress NoteFiled: 02/11/2017 12:04 PMNote Text: Nursing Progress NotePatient Name: Eduard QuinonezerMRN: [id number] Location: [place] pt ready for OR, friend called to bedside, call light in reach.This note was completed by: Abbie Rome RN [facility] PT EDon 02-11-2017 PT ED HNO ID: [id number] thor: Cordelia Cote) Clark Sorianoice: (none)Author Type: Registered NurseType: Patient EducationFiled: 02/11/2017 3:57 PMNote Text:POST OP LEARNING RESPONSEINSTRUCTION PROVIDED TO: PatientMETHOD OF INSTRUCTION: Teach Back .PATIENT / FAMILY RESPONSE: Verbalizes understanding of: POST-OPERATIVEINSTRUCTIONS -Correct actions to take to reduce postoperative complicationsFOLLOW-UP PLAN: Patient instructed to call with any further issuesSUPPLEMENTAL MATERIAL: NoneREFERRAL (RECOMMENDATION): NoneElectronically Signed By: Cordelia Christie, RN [facility] PT ED HNO ID: [id number] thor: Abbie (Rn) Latricia RNService: NursingAuthor Type: Registered NurseType: Patient EducationFiled: 02/11/2017 12:09 PMNote Text:PRE OP LEARNING ASSESSMENTPROCEDURE/SURGER Y: EGDREADINESS TO LEARNCOGNITIVE ABILITY: Alert and orientedMOTIVATION TO LEARN: InterestedFAMILY SUPPORT: High - Very involved in pt carePATIENT LEARNS BEST BY: Written Instruction - Hand-outsVerbal InstructionFACTORS AFFECTING LEARNING: NonePHYSICAL LIMITATIONS AFFECTING LEARNING: NoneElectronically Signed By: Abbie Rome RN [facility] SURGICAL PATHOLOGYon 018 SURGICAL PATHOLOGY [facility]: [id number] Physician: TJ MARLEY MD FI NAL DIAGNOSIS1. Gastric antrum, biopsy (A) - Focal active gastritis and reactivegastropathy.- No morphologic evidence of H. pylori organisms.2. Esophagogastric junction, biopsy (B) - Squamocolumnar junction mucosawith reactive epithelial changes, negative for intestinal metaplasia anddysplasia.3. Mid esophagus, biopsy (C) - Squamous epithelium with mild reactiveepithelial changes.- Morphologic changes of eosinophilic esophagitis are not seen.LANCE/norah 02/13/2017 Marie Dotson M.D.(Electronic Signature) S PECIMEN [...] submitted in one cassette.Gross examination performed at [facility], [address] [place] [address] [id number] 02/12/2017 12:32:56 PMPatient ID #: [id number] of Report: 02/13/2017Date of Procedure: 02/11/2017Date of Receipt: 02/11/2017Submitted by: TJ MARLEY MDLocation: MEENDDiagnostic interpretation performed at [facility], [address] [place] [address],[place] [address]. [facility] Comment on above: Performed By: #### P ATHS ####[facility] [address] [phone] NURSING PROGon 02-06-2017 NURSING PROG HNO ID: [id number] thor: Marie (Rn) YAHAIRA Simpsonervice: (none)Author Type: Registered NurseType: Nursing Progress NoteFiled: 02/06/2017 12:46 PMNote Text:PACC Nurse Progress NoteHistory AND Physical:PACC Visit Date: NoneRecent H AND P done 01/26/17 by Rolan Duran CNP in [facility].Labs Within Last 6 Months:CBC: Date 12/25/16BMP/CMP: Date [...] St. JudeInterrogation Date: 01/13/17, Comment: (scanned in [facility]- Battery longevity-3 years 8 months)Risk Assessment:Cardiac Date: Recent cardiac follow-up office visit done 01/13/17 in [facility]- He reports no ICD shocks and no palpitation since ablation. Denieschest pain, dyspnea or syncope. Recently quit smoking. He is maintainedon low-dose carvedilol in addition to amiodarone, but he feels thatcarvedilol has been causing abdominal discomfort. Dr. London Johnston, community [facility] glass designer, is considering replacing Cardella with Toprol.Anesthesia Review:02/06/17 sent an e-mail for chart review regarding cardiac history to .Narrative:Per HPI: CAD-ischemic cardiopathy, severe LV systolic dysfunction;Pacemaker implanted 2013; S/P Cardiac ablations x3- 2016 x2 and 05/2016- OnWarfarin and baby ASA-follows with Dr. JohnstonAnticoagulation: Per telephone encounter- 02/03/17- patient informed fromDr. Johnston-okay to stop Warfarin 2 days before procedure; expected lastdose-02/08/17.Pre-op Considerations:DOS- PT-INR- Brgiida montes de oca, St. 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 HOSPon 01-27-2017 HOSP Patient:Jairon Leos BMRN: [...] abdominal pain [R10.13]Allergies:Gemfibro zilNexium [Esomeprazole Magnesium]Date Verified: 1/3/18Lab ValuesNo results within the last 30 days for the following basenames: K,HCTProgress Notes ([facility]):Diana Toscano LPN 02/03/2017 1:42 PM SignedPatient has [...] lisinopril. LOWELL: No Authorizing Provider: KIRK JOHNSTON ERefuseclayton Prescriptions Disp Refills pantoprazole DR (PROTONIX) 40 mg tablet 90 tablet 3 Sig: Take 1 tablet by mouth once daily. LOWELL: No Refused By: KIRK JOHNSTON MD Reason for Refusal: Patient should contact Prescriber Emily Khan Notes ([facility]):Diana Toscano LPN 02/03/2017 1:33 PM SignedPlease [...] and provider's instructions. Patient verbalizesunderstanding.Hodan Toscano LPN [facility] Vital Signs Date Time Vital Sign Value Performing Clinician Ana fritz 08-18-2024 15:05-0400 Body height 175.[address] Luis Hay MD Work Phone: [facility] 08-18-2024 15:05-0400 Body mass index (BMI) [Ratio] 33.5 kg/m2 Dr. Luis Hay MD Work Phone: [facility] 08-18-2024 15:05-0400 Body temperature 98.2 [degF] Dr. Luis Hay MD Work Phone: [facility] 08-18-2024 15:05-0400 Body weight 102.[address] Luis Hay MD Work Phone: [facility] 08-18-2024 15:05-0400 Diastolic blood pressure 62 mm[Hg] Dr. Luis Hay MD Work Phone: [facility] 08-18-2024 15:05-0400 Heart rate 67 /min Dr. Luis Hay MD Work Phone: [facility] 08-18-2024 15:05-0400 Respiratory rate 16 /min Dr. Luis Hay MD Work Phone: [facility] 08-18-2024 15:05-0400 SaO2% (BldA) [Mass fraction] 93 % Dr. Luis Hay MD Work Phone: [facility] 08-18-2024 15:05-0400 Systolic blood pressure 90 mm[Hg] Dr. Luis Hay MD Work Phone: [facility] 08-04-2024 14:10-0400 Body height 175.[address] Luis Hay MD Work Phone: [facility] 08-04-2024 14:10-0400 Body mass index (BMI) [Ratio] 33.6 kg/m2 Dr. Luis Hay MD Work Phone: [facility] 08-04-2024 14:10-0400 Body temperature 97.8 [degF] Dr. Luis Hay MD Work Phone: [facility] 08-04-2024 14:10-0400 Body weight 103.[address] Luis Hay MD Work Phone: [facility] 08-04-2024 14:10-0400 Diastolic blood pressure 58 mm[Hg] Dr. Luis Hay MD Work Phone: [facility] 08-04-2024 14:10-0400 Heart rate 70 /min Dr. Luis Hay MD Work Phone: [facility] 08-04-2024 14:10-0400 Respiratory rate 18 /min Dr. Luis Hay MD Work Phone: [facility] 08-04-2024 14:10-0400 SaO2% (BldA) [Mass fraction] 91 % Dr. Luis Hay MD Work Phone: [facility] 08-04-2024 14:10-0400 Systolic blood pressure 94 mm[Hg] Dr. Luis Hay MD Work Phone: [facility] 07-22-2024 22:45-0400 Body temperature 98.2 [degF] Dr. Luis Hay MD Work Phone: [facility] 07-22-2024 22:45-0400 Diastolic blood pressure 69 mm[Hg] Dr. Luis Hay MD Work Phone: [facility] 07-22-2024 22:45-0400 Heart rate 63 /min Dr. Luis Hay MD Work Phone: [facility] 07-22-2024 22:45-0400 Respiratory rate 18 /min Dr. Luis Hay MD Work Phone: [facility] 07-22-2024 22:45-0400 SaO2% (BldA) [Mass fraction] 94 % Dr. Luis Hay MD Work Phone: [facility] 07-22-2024 22:45-0400 Systolic blood pressure 94 mm[Hg] Dr. Luis Hay MD Work Phone: [facility] 07-22-2024 19:28-0400 Body height 175.[address] Luis Hay MD Work Phone: [facility] 07-22-2024 19:28-0400 Body mass index (BMI) [Ratio] 34 kg/m2 Dr. Luis Hay MD Work Phone: [facility] 07-22-2024 19:28-0400 Body weight 104.[address] Luis Hay MD Work Phone: [facility] 07-06-2024 15:35-0400 Body height 175.[address] Luis Hay MD Work Phone: [facility] 07-06-2024 15:35-0400 Body mass index (BMI) [Ratio] 33.6 kg/m2 Dr. Luis Hay MD Work Phone: [facility] 07-06-2024 15:35-0400 Body weight [address] Luis Hay MD Work Phone: [facility] 07-06-2024 15:35-0400 Diastolic blood pressure 74 mm[Hg] Dr. Luis Hay MD Work Phone: [facility] 07-06-2024 15:35-0400 Heart rate 75 /min Dr. Luis Hay MD Work Phone: [facility] 07-06-2024 15:35-0400 Respiratory rate 18 /min Dr. Luis Hay MD Work Phone: [facility] 07-06-2024 15:35-0400 Systolic blood pressure 115 mm[Hg] Dr. Luis Hay MD Work Phone: [facility] 06-06-2024 13:12-0400 Body mass index (BMI) [Ratio] 33.7 kg/m2 Dr. Luis Hay MD Work Phone: [facility] 06-06-2024 13:12-0400 Body weight 103.[address] Luis Hay MD Work Phone: [facility] 06-06-2024 13:12-0400 Diastolic blood pressure 69 mm[Hg] Dr. Luis Hay MD Work Phone: [facility] 06-06-2024 13:12-0400 Heart rate 68 /min Dr. Luis Hay MD Work Phone: [facility] 06-06-2024 13:12-0400 Respiratory rate 18 /min Dr. Luis Hay MD Work Phone: [facility] 06-06-2024 13:12-0400 SaO2% (BldA) [Mass fraction] 92 % Dr. Luis Hay MD Work Phone: [facility] 06-06-2024 13:12-0400 Systolic blood pressure 100 mm[Hg] Dr. Luis Hay MD Work Phone: [facility] 06-04-2024 04:22-0400 Body temperature 98.4 [degF] Dr. Luis Hay MD Work Phone: [facility] 06-04-2024 04:22-0400 Diastolic blood pressure 84 mm[Hg] Dr. Luis Hay MD Work Phone: [facility] 06-04-2024 04:22-0400 Heart rate 63 /min Dr. Luis Hay MD Work Phone: [facility] 06-04-2024 04:22-0400 Respiratory rate 17 /min Dr. Luis Hay MD Work Phone: [facility] 06-04-2024 04:22-0400 SaO2% (BldA) [Mass fraction] 92 % Dr. Luis Hay MD Work Phone: [facility] 06-04-2024 04:22-0400 Systolic blood pressure 117 mm[Hg] Dr. Luis Hay MD Work Phone: [facility] 06-04-2024 01:35-0400 Body height 175.[address] Luis Hay MD Work Phone: [facility] 06-04-2024 01:35-0400 Body mass index (BMI) [Ratio] 34.1 kg/m2 Dr. Luis Hay MD Work Phone: [facility] 06-04-2024 01:35-0400 Body weight 104.[address] Luis aHy MD Work Phone: [facility] 04-28-2024 14:29-0400 Body height 175.[address] Luis Hay MD Work Phone: [facility] 04-28-2024 14:29-0400 Body mass index (BMI) [Ratio] 33.3 kg/m2 Dr. Luis Hay MD Work Phone: [facility] 04-28-2024 14:29-0400 Body temperature 98.2 [degF] Dr. Luis Hay MD Work Phone: [facility] 04-28-2024 14:29-0400 Body weight 102.[address] Luis Hay MD Work Phone: [facility] 04-28-2024 14:29-0400 Diastolic blood pressure 66 mm[Hg] Dr. Luis Hay MD Work Phone: [facility] 04-28-2024 14:29-0400 Heart rate 84 /min Dr. Luis Hay MD Work Phone: [facility] 04-28-2024 14:29-0400 Respiratory rate 18 /min Dr. Luis Hay MD Work Phone: [facility] 04-28-2024 14:29-0400 SaO2% (BldA) [Mass fraction] 93 % Dr. Luis Hay MD Work Phone: [facility] 04-28-2024 14:29-0400 Systolic blood pressure 134 mm[Hg] Dr. Luis Hay MD Work Phone: [facility] 01-27-2024 14:47-0500 Body mass index (BMI) [Ratio] 32.5 kg/m2 Dr. Luis Hay MD Work Phone: [facility] 01-27-2024 14:47-0500 Body temperature 98 [degF] Dr. Luis Hay MD Work Phone: [facility] 01-27-2024 14:47-0500 Body weight 99.[address] Luis Hay MD Work Phone: [facility] 01-27-2024 14:47-0500 Diastolic blood pressure 62 mm[Hg] Dr. Luis Hay MD Work Phone: [facility] 01-27-2024 14:47-0500 Heart rate 74 /min Dr. Luis Hay MD Work Phone: [facility] 01-27-2024 14:47-0500 Respiratory rate 17 /min Dr. Luis Hay MD Work Phone: [facility] 01-27-2024 14:47-0500 SaO2% (BldA) [Mass fraction] 96 % Dr. Luis Hay MD Work Phone: [facility] 01-27-2024 14:47-0500 Systolic blood pressure 114 mm[Hg] Dr. Luis Hay MD Work Phone: [facility] 04-16-2023 14:22-0500 Body height 175.[address] Luis Hay Work Phone: [facility] 04-16-2023 14:22-0500 Body mass index (BMI) [Ratio] 34.1 kg/m2 Dr. Luis Hay Work Phone: [facility] 04-16-2023 14:22-0500 Body temperature 97.9 [degF] Dr. Luis Hay Work Phone: [facility] 04-16-2023 14:22-0500 Body weight 104.[address] Luis Hay Work Phone: [facility] 04-16-2023 14:22-0500 Diastolic blood pressure 76 mm[Hg] Dr. Luis Hay Work Phone: [facility] 04-16-2023 14:22-0500 Heart rate 60 /min Dr. Luis Hay Work Phone: [facility] 04-16-2023 14:22-0500 Respiratory rate 18 /min Dr. Luis Hay Work Phone: [facility] 04-16-2023 14:22-0500 SaO2% (BldA) [Mass fraction] 96 % Dr. Luis Hay Work Phone: [facility] 04-16-2023 14:22-0500 Systolic blood pressure 122 mm[Hg] Dr. Luis Hay Work Phone: [facility] 01-14-2023 15:27-0500 Body mass index (BMI) [Ratio] 33.5 kg/m2 Dr. Luis Hay Work Phone: [facility] 01-14-2023 15:27-0500 Body temperature 97.6 [degF] Dr. Luis Hay Work Phone: [facility] 01-14-2023 15:27-0500 Body weight 102.[address] Luis Hay Work Phone: [facility] 01-14-2023 15:27-0500 Diastolic blood pressure 72 mm[Hg] Dr. Luis Hay Work Phone: [facility] 01-14-2023 15:27-0500 Heart rate 70 /min Dr. Luis Hay Work Phone: [facility] 01-14-2023 15:27-0500 Respiratory rate 16 /min Dr. Luis Hay Work Phone: [facility] 01-14-2023 15:27-0500 SaO2% (BldA) [Mass fraction] 97 % Dr. Luis Hay Work Phone: [facility] 01-14-2023 15:27-0500 Systolic blood pressure 118 mm[Hg] Dr. Luis Hay Work Phone: [facility] 10-29-2022 14:21-0400 Body height 175.[address] Luis Hay Work Phone: [facility] 10-29-2022 14:21-0400 Body mass index (BMI) [Ratio] 33.6 kg/m2 Dr. Luis Hay Work Phone: [facility] 10-29-2022 14:21-0400 Body temperature 98.1 [degF] Dr. Luis Hay Work Phone: [facility] 10-29-2022 14:21-0400 Body weight 103.[address] Luis Hay Work Phone: [facility] 10-29-2022 14:21-0400 Diastolic blood pressure 62 mm[Hg] Dr. Luis Hay Work Phone: [facility] 10-29-2022 14:21-0400 Heart rate 72 /min Dr. Luis Hay Work Phone: [facility] 10-29-2022 14:21-0400 Respiratory rate 16 /min Dr. Luis Hay Work Phone: [facility] 10-29-2022 14:21-0400 SaO2% (BldA) [Mass fraction] 98 % Dr. Luis Hay Work Phone: [facility] 10-29-2022 14:21-0400 Systolic blood pressure 106 mm[Hg] Dr. Luis Hay Work Phone: [facility] 08-20-2022 14:12-0400 Body height 175.[address] Luis Hay Work Phone: [facility] 08-20-2022 14:12-0400 Body mass index (BMI) [Ratio] 33.2 kg/m2 Dr. Luis Hay Work Phone: [facility] 08-20-2022 14:12-0400 Body weight 102.[address] Luis Hay Work Phone: [facility] 08-20-2022 14:12-0400 Diastolic blood pressure 66 mm[Hg] Dr. Luis Hay Work Phone: [facility] 08-20-2022 14:12-0400 Heart rate 73 /min Dr. Luis Hay Work Phone: [facility] 08-20-2022 14:12-0400 Respiratory rate 22 /min Dr. Luis Hay Work Phone: [facility] 08-20-2022 14:12-0400 SaO2% (BldA) [Mass fraction] 94 % Dr. Luis Hay Work Phone: [facility] 08-20-2022 14:12-0400 Systolic blood pressure 105 mm[Hg] Dr. Luis Hay Work Phone: [facility] 08-08-2022 09:29-0400 Body mass index (BMI) [Ratio] 32.9 kg/m2 Dr. Luis Hay Work Phone: [facility] 08-08-2022 09:29-0400 Body temperature 97.7 [degF] Dr. Luis Hay Work Phone: [facility] 08-08-2022 09:29-0400 Body weight 101.[address] Luis Hay Work Phone: [facility] 08-08-2022 09:29-0400 Diastolic blood pressure 70 mm[Hg] Dr. Luis Hay Work Phone: [facility] 08-08-2022 09:29-0400 Heart rate 93 /min Dr. Luis Hay Work Phone: [facility] 08-08-2022 09:29-0400 Respiratory rate 18 /min Dr. Luis Hay Work Phone: [facility] 08-08-2022 09:29-0400 SaO2% (BldA) [Mass fraction] 95 % Dr. Luis Hay Work Phone: [facility] 08-08-2022 09:29-0400 Systolic blood pressure 98 mm[Hg] Dr. Luis Hay Work Phone: [facility] 07-28-2022 13:48-0400 Body mass index (BMI) [Ratio] 33.3 kg/m2 Dr. Luis Hay Work Phone: [facility] 07-28-2022 13:48-0400 Body temperature 97.6 [degF] Dr. Luis Hay Work Phone: [facility] 07-28-2022 13:48-0400 Body weight 102.[address] Luis Hay Work Phone: [facility] 07-28-2022 13:48-0400 Diastolic blood pressure 62 mm[Hg] Dr. Luis Hay Work Phone: [facility] 07-28-2022 13:48-0400 Heart rate 84 /min Dr. Luis Hay Work Phone: [facility] 07-28-2022 13:48-0400 Respiratory rate 14 /min Dr. Luis Hay Work Phone: [facility] 07-28-2022 13:48-0400 SaO2% (BldA) [Mass fraction] 96 % Dr. Luis Hay Work Phone: [facility] 07-28-2022 13:48-0400 Systolic blood pressure 108 mm[Hg] Dr. Luis Hay Work Phone: [facility] 04-09-2022 13:14-0500 Body height 175.[address] Luis Hay Work Phone: [facility] 04-09-2022 13:14-0500 Body mass index (BMI) [Ratio] 33.7 kg/m2 Dr. Luis Hay Work Phone: [facility] 04-09-2022 13:14-0500 Body weight 103.[address] Luis Hay Work Phone: [facility] 04-09-2022 13:14-0500 Diastolic blood pressure 72 mm[Hg] Dr. Luis Hay Work Phone: [facility] 04-09-2022 13:14-0500 Heart rate 70 /min Dr. Luis Hay Work Phone: [facility] 04-09-2022 13:14-0500 Respiratory rate 18 /min Dr. Luis Hay Work Phone: [facility] 04-09-2022 13:14-0500 SaO2% (BldA) [Mass fraction] 93 % Dr. Luis Hay Work Phone: [facility] 04-09-2022 13:14-0500 Systolic blood pressure 111 mm[Hg] Dr. Luis Hay Work Phone: [facility] 01-23-2022 13:08-0500 Body height 175.[address] Luis Hay Work Phone: [facility] Work Phone: 01-23-2022 13:08-0500 Body mass index (BMI) [Ratio] 33.6 kg/m2 Dr. Luis Hay Work Phone: [facility] 01-23-2022 13:08-0500 Body temperature 98.2 [degF] Dr. Luis Hay Work Phone: [facility] 01-23-2022 13:08-0500 Body weight 103.[address] Luis Hay Work Phone: [facility] 01-23-2022 13:08-0500 Diastolic blood pressure 62 mm[Hg] Dr. Luis Hay Work Phone: [facility] 01-23-2022 13:08-0500 Heart rate 83 /min Dr. Luis Hay Work Phone: [facility] 01-23-2022 13:08-0500 Respiratory rate 16 /min Dr. Luis Hay Work Phone: [facility] 01-23-2022 13:08-0500 SaO2% (BldA) [Mass fraction] 95 % Dr. Luis Hay Work Phone: [facility] 01-23-2022 13:08-0500 Systolic blood pressure 96 mm[Hg] Dr. Luis Hay Work Phone: [facility] 12-12-2021 18:23-0400 Body weight 105.[address] Luis Hay Work Phone: [facility] Work Phone: 11-21-2021 13:58-0400 Body height 175.[address] Luis Hay Work Phone: [facility] Work Phone: 11-21-2021 13:58-0400 Body mass index (BMI) [Ratio] 33.6 kg/m2 Dr. Luis Hay Work Phone: [facility] Work Phone: 11-21-2021 13:58-0400 Body weight 103.[address] Luis Hay Work Phone: [facility] Work Phone: 11-21-2021 13:58-0400 Diastolic blood pressure 72 mm[Hg] Dr. Luis Hay Work Phone: [facility] Work Phone: 11-21-2021 13:58-0400 Heart rate 71 /min Dr. Luis Hay Work Phone: [facility] Work Phone: 11-21-2021 13:58-0400 Respiratory rate 20 /min Dr. Luis Hay Work Phone: [facility] Work Phone: 11-21-2021 13:58-0400 SaO2% (BldA) [Mass fraction] 94 % Dr. Luis Hay Work Phone: [facility] Work Phone: 11-21-2021 13:58-0400 Systolic blood pressure 115 mm[Hg] Dr. Luis Hay Work Phone: [facility] Work Phone: 11-14-2021 17:24-0400 Body weight 104.[address] Luis Hay Work Phone: [facility] Work Phone: 10-21-2021 14:20-0400 Body height 175.[address] Luis Hay Work Phone: [facility] Work Phone: 10-21-2021 14:20-0400 Body weight 102.[address] Luis Hay Work Phone: [facility] Work Phone: 10-18-2021 14:04-0400 Body mass index (BMI) [Ratio] 32.9 kg/m2 Dr. Luis Hay Work Phone: [facility] Work Phone: 10-18-2021 14:04-0400 Body temperature 96.9 [degF] Dr. Luis Hay Work Phone: [facility] Work Phone: 10-18-2021 14:04-0400 Body weight 101.[address] Luis Hay Work Phone: [facility] Work Phone: 10-18-2021 14:04-0400 Diastolic blood pressure 56 mm[Hg] Dr. Luis Hay Work Phone: [facility] Work Phone: 10-18-2021 14:04-0400 Heart rate 71 /min Dr. Luis Hay Work Phone: [facility] Work Phone: 10-18-2021 14:04-0400 Respiratory rate 18 /min Dr. Luis Hay Work Phone: [facility] Work Phone: 10-18-2021 14:04-0400 SaO2% (BldA) [Mass fraction] 95 % Dr. Luis Hay Work Phone: [facility] Work Phone: 10-18-2021 14:04-0400 Systolic blood pressure 94 mm[Hg] Dr. Luis Hay Work Phone: [facility] Work Phone: 09-09-2021 00:32-0400 Body weight 97.[address] Luis Hay Work Phone: [facility] Work Phone: 08-15-2021 17:29-0400 Body height 175.[address] Luis Hay Work Phone: [facility] Work Phone: 08-15-2021 17:29-0400 Body weight 97.[address] Luis Hay Work Phone: [facility] Work Phone: 08-05-2021 14:33-0400 Body height 175.[address] Nidia Geiger Work Phone: [facility] Work Phone: 08-05-2021 14:33-0400 Body mass index (BMI) [Ratio] 31.7 kg/m2 Dr. Nidia Geiger Work Phone: [facility] Work Phone: 08-05-2021 14:33-0400 Body weight 97.[address] Nidia Geiger Work Phone: [facility] Work Phone: 08-05-2021 14:33-0400 Diastolic blood pressure 59 mm[Hg] Dr. Nidia Geiger Work Phone: [facility] Work Phone: 08-05-2021 14:33-0400 Heart rate 73 /min Dr. Nidia Geiger Work Phone: [facility] Work Phone: 08-05-2021 14:33-0400 Respiratory rate 18 /min Dr. Nidia Geiger Work Phone: [facility] Work Phone: 08-05-2021 14:33-0400 Systolic blood pressure 87 mm[Hg] Dr. Nidia Geiger Work Phone: [facility] Work Phone: 07-31-2021 14:50-0400 Body weight 96.[address] Nidia Geiger Work Phone: [facility] Work Phone: 07-17-2021 13:22-0400 Body mass index (BMI) [Ratio] 31.6 kg/m2 Dr. Nidia Geiger Work Phone: [facility] Work Phone: 07-17-2021 13:22-0400 Body temperature 97.9 [degF] Dr. Nidia Geiger Work Phone: [facility] Work Phone: 07-17-2021 13:22-0400 Body weight 97.[address] Nidia Geiger Work Phone: [facility] Work Phone: 07-17-2021 13:22-0400 Diastolic blood pressure 62 mm[Hg] Dr. Nidia Geiger Work Phone: [facility] Work Phone: 07-17-2021 13:22-0400 Heart rate 65 /min Dr. Nidia Geiger Work Phone: [facility] Work Phone: 07-17-2021 13:22-0400 Respiratory rate 16 /min Dr. Nidia Geiger Work Phone: [facility] Work Phone: 07-17-2021 13:22-0400 SaO2% (BldA) [Mass fraction] 95 % Dr. Nidia Geiger Work Phone: [facility] Work Phone: 07-17-2021 13:22-0400 Systolic blood pressure 108 mm[Hg] Dr. Nidia Geiger Work Phone: [facility] Work Phone: 07-10-2021 01:13-0400 Body weight 96.[address] Nidia Geiger Work Phone: [facility] Work Phone: 07-04-2021 10:59-0400 Body height 175.[address] Nidia Geiger Work Phone: [facility] Work Phone: 07-04-2021 10:59-0400 Body weight 96.[address] Nidia Geiger Work Phone: [facility] Work Phone: 07-03-2021 08:54-0400 Body mass index (BMI) [Ratio] 31.4 kg/m2 Dr. Nidia Geiger Work Phone: [facility] Work Phone: 06-27-2021 09:59-0400 Body mass index (BMI) [Ratio] 31.1 kg/m2 Dr. Nidia Geiger Work Phone: [facility] Work Phone: 06-27-2021 09:59-0400 Body temperature 97.8 [degF] Dr. Nidia Geiger Work Phone: [facility] Work Phone: 06-27-2021 09:59-0400 Body weight 95.[address] Nidia Geiger Work Phone: [facility] Work Phone: 06-27-2021 09:59-0400 Diastolic blood pressure 74 mm[Hg] Dr. Nidia Geiger Work Phone: [facility] Work Phone: 06-27-2021 09:59-0400 Heart rate 92 /min Dr. Nidia Geiger Work Phone: [facility] Work Phone: 06-27-2021 09:59-0400 Respiratory rate 17 /min Dr. Nidia Geiger Work Phone: [facility] Work Phone: 06-27-2021 09:59-0400 SaO2% (BldA) [Mass fraction] 96 % Dr. Nidia Geiger Work Phone: [facility] Work Phone: 06-27-2021 09:59-0400 Systolic blood pressure 110 mm[Hg] Dr. Nidia Geiger Work Phone: [facility] Work Phone: 06-27-2021 09:59-0400 Body mass index (BMI) [Ratio] 31.1 kg/m2 Dr. Nidia Geiger Work Phone: [facility] Work Phone: 06-27-2021 09:59-0400 Body temperature 97.8 [degF] Dr. Nidia Geiger Work Phone: [facility] Work Phone: 06-27-2021 09:59-0400 Body weight 95.[address] Ndiia Geiger Work Phone: [facility] Work Phone: 06-27-2021 09:59-0400 Diastolic blood pressure 74 mm[Hg] Dr. Nidia Geiger Work Phone: [facility] Work Phone: 06-27-2021 09:59-0400 Heart rate 92 /min Dr. Nidia Geiger Work Phone: [facility] Work Phone: 06-27-2021 09:59-0400 Respiratory rate 17 /min Dr. Nidia Geiger Work Phone: [facility] Work Phone: 06-27-2021 09:59-0400 SaO2% (BldA) [Mass fraction] 96 % Dr. Nidia Geiger Work Phone: [facility] Work Phone: 06-27-2021 09:59-0400 Systolic blood pressure 110 mm[Hg] Dr. Nidia Geiger Work Phone: [facility] Work Phone: 06-26-2021 14:41-0400 Body weight 96.[address] Nidia Geiger Work Phone: [facility] Work Phone: 06-17-2021 09:33-0400 Body mass index (BMI) [Ratio] 31.4 kg/m2 Dr. Nidia Geiger Work Phone: [facility] Work Phone: 06-17-2021 09:33-0400 Body weight 96.[address] Nidia Geiger Work Phone: [facility] Work Phone: 06-17-2021 09:33-0400 Diastolic blood pressure 62 mm[Hg] Dr. Nidia Geiger Work Phone: [facility] Work Phone: 06-17-2021 09:33-0400 Heart rate 78 /min Dr. Nidia Geiger Work Phone: [facility] Work Phone: 06-17-2021 09:33-0400 Respiratory rate 18 /min Dr. Nidia Geigre Work Phone: [facility] Work Phone: 06-17-2021 09:33-0400 SaO2% (BldA) [Mass fraction] 94 % Dr. Nidia Geiger Work Phone: [facility] Work Phone: 06-17-2021 09:33-0400 Systolic blood pressure 101 mm[Hg] Dr. Nidia Geiger Work Phone: [facility] Work Phone: 06-17-2021 09:33-0400 Body mass index (BMI) [Ratio] 31.4 kg/m2 Dr. Nidia Geiger Work Phone: [facility] Work Phone: 06-17-2021 09:33-0400 Body weight 96.[address] Ndiia Geiger Work Phone: [facility] Work Phone: 06-17-2021 09:33-0400 Diastolic blood pressure 62 mm[Hg] Dr. Nidia Geiger Work Phone: [facility] Work Phone: 06-17-2021 09:33-0400 Heart rate 78 /min Dr. Nidia Geiger Work Phone: [facility] Work Phone: 06-17-2021 09:33-0400 Respiratory rate 18 /min Dr. Nidia Geiger Work Phone: [facility] Work Phone: 06-17-2021 09:33-0400 SaO2% (BldA) [Mass fraction] 94 % Dr. Nidia Geiger Work Phone: [facility] Work Phone: 06-17-2021 09:33-0400 Systolic blood pressure 101 mm[Hg] Dr. Nidia Geiger Work Phone: [facility] Work Phone: 06-05-2021 13:08-0400 Body mass index (BMI) [Ratio] 32.5 kg/m2 Dr. Nidia Geiger Work Phone: [facility] Work Phone: 06-05-2021 13:08-0400 Body temperature 98.4 [degF] Dr. Nidia Geiger Work Phone: [facility] Work Phone: 06-05-2021 13:08-0400 Body weight 99.[address] Nidia Geiger Work Phone: [facility] Work Phone: 06-05-2021 13:08-0400 Diastolic blood pressure 64 mm[Hg] Dr. Nidia Geiger Work Phone: [facility] Work Phone: 06-05-2021 13:08-0400 Heart rate 84 /min Dr. Nidia Geiger Work Phone: [facility] Work Phone: 06-05-2021 13:08-0400 Respiratory rate 14 /min Dr. Nidia Geiger Work Phone: [facility] Work Phone: 06-05-2021 13:08-0400 SaO2% (BldA) [Mass fraction] 99 % Dr. Nidia Geiger Work Phone: [facility] Work Phone: 06-05-2021 13:08-0400 Systolic blood pressure 106 mm[Hg] Dr. Nidia Geiger Work Phone: [facility] Work Phone: 05-20-2021 13:20-0400 Body weight 97.[address] Nidia Geiger Work Phone: [facility] Work Phone: 05-20-2021 13:20-0400 Diastolic blood pressure 60 mm[Hg] Dr. Nidia Geiger Work Phone: [facility] Work Phone: 05-20-2021 13:20-0400 Heart rate 76 /min Dr. Nidia Geiger Work Phone: [facility] Work Phone: 05-20-2021 13:20-0400 Respiratory rate 18 /min Dr. Nidia Geiger Work Phone: [facility] Work Phone: 05-20-2021 13:20-0400 Systolic blood pressure 102 mm[Hg] Dr. Nidia Geiger Work Phone: [facility] Work Phone: 05-20-2021 13:20-0400 Body weight 97.[address] Nidia Geiger Work Phone: [facility] Work Phone: 05-20-2021 13:20-0400 Diastolic blood pressure 60 mm[Hg] Dr. Nidia Geiger Work Phone: [facility] Work Phone: 05-20-2021 13:20-0400 Heart rate 76 /min Dr. Nidia Geiger Work Phone: [facility] Work Phone: 05-20-2021 13:20-0400 Respiratory rate 18 /min Dr. Nidia Geiger Work Phone: [facility] Work Phone: 05-20-2021 13:20-0400 Systolic blood pressure 102 mm[Hg] Dr. Nidia Geiger Work Phone: [facility] Work Phone: 04-30-2021 10:48-0400 Body mass index (BMI) [Ratio] 31.7 kg/m2 Dr. Nidia Geiger Work Phone: [facility] Work Phone: 04-30-2021 10:48-0400 Body temperature 96.7 [degF] Dr. Nidia Geiger Work Phone: [facility] Work Phone: 04-30-2021 10:48-0400 Body weight 97.[address] Nidia Geiger Work Phone: [facility] Work Phone: 04-30-2021 10:48-0400 Diastolic blood pressure 60 mm[Hg] Dr. Nidia Geiger Work Phone: [facility] Work Phone: 04-30-2021 10:48-0400 Heart rate 67 /min Dr. Nidia Geiger Work Phone: [facility] Work Phone: 04-30-2021 10:48-0400 Respiratory rate 16 /min Dr. Nidia Geiger Work Phone: [facility] Work Phone: 04-30-2021 10:48-0400 SaO2% (BldA) [Mass fraction] 98 % Dr. Nidia Geiger Work Phone: [facility] Work Phone: 04-30-2021 10:48-0400 Systolic blood pressure 112 mm[Hg] Dr. Nidia Geiger Work Phone: [facility] Work Phone: 04-30-2021 10:48-0400 Body height 175.[address] Nidia Geiger Work Phone: [facility] Work Phone: 04-30-2021 10:48-0400 Body mass index (BMI) [Ratio] 31.7 kg/m2 Dr. Nidia Geiger Work Phone: [facility] Work Phone: 04-30-2021 10:48-0400 Body temperature 96.7 [degF] Dr. Nidia Geiger Work Phone: [facility] Work Phone: 04-30-2021 10:48-0400 Body weight 97.[address] Nidia Geiger Work Phone: [facility] Work Phone: 04-30-2021 10:48-0400 Diastolic blood pressure 60 mm[Hg] Dr. Nidia Geiger Work Phone: [facility] Work Phone: 04-30-2021 10:48-0400 Heart rate 67 /min Dr. Nidia Geiger Work Phone: [facility] Work Phone: 04-30-2021 10:48-0400 Respiratory rate 16 /min Dr. Nidia Geiger Work Phone: [facility] Work Phone: 04-30-2021 10:48-0400 SaO2% (BldA) [Mass fraction] 98 % Dr. Nidia Geiger Work Phone: [facility] Work Phone: 04-30-2021 10:48-0400 Systolic blood pressure 112 mm[Hg] Dr. Nidia Geiger Work Phone: [facility] Work Phone: 07-11-2020 14:01-0400 Body mass index (BMI) [Ratio] 34.1 kg/m2 Dr. Nidia Geiger Work Phone: [facility] Work Phone: 07-11-2020 14:01-0400 Body mass index (BMI) [Ratio] 34.1 kg/m2 Dr. Nidia Geiger Work Phone: [facility] Work Phone: Encounters Encounter Date Encounter Type Care Provider Facility Start: 09-23-2024 ambulatory Luis Carrion ty:[facility] Start: 08-21-2024 ambulatory Luis Carrion ty:[facility] Start: 08-21-2024 Dr. Lusi Hay MD -[facility] Work Phone: Start: 08-18-2024 End: 08-18-2024 Dr. Luis Hay MD -[facility] Work Phone: Start: 08-18-2024 End: 08-18-2024 ambulatory Dr. Luis Hay MD Work Phone: -[facility] Start: 08-17-2024 End: 08-18-[address] Luis Hay MD Work Phone: -[facility] Start: 08-17-2024 End: 08-17-2024 Dr. Barry Odom MD -[facility] Work Phone: Start: 08-04-2024 End: 08-04-2024 Marie FRAGA -[facility] Work Phone: Start: 08-04-2024 End: 08-04-[address] Luis Hay MD Work Phone: [facility] Work Phone: Start: 07-22-2024 End: 07-22-2024 Dr. Luis Hay MD Work Phone: -Emergency Department Work Phone: Start: 07-22-2024 End: 07-22-2024 Emergency department patient visit Dr. Luis Hay MD Work Phone: [facility] Work Phone: Start: 07-21-2024 End: 07-21-[address] Luis Hay MD Work Phone: [facility] Work Phone: Start: 07-21-2024 End: 07-21-2024 Dr. Todd Villavicencio MD -Radiology [facility] Work Phone: Start: 07-21-2024 End: 07-21-2024 ambulatory Efewongbe Oleghe Facility:[facility] Start: 07-08-2024 ambulatory Efewongbe Oleghe Facili ty:[facility] Start: 07-08-2024 Dr. Luis Hay MD -[facility] Work Phone: Start: 07-06-2024 End: 07-06-2024 Patient encounter procedure Joseph Fonseca NP-C -[facility] Work Phone: Start: 07-06-2024 End: 07-06-2024 Joseph Fonseca NP-C -[facility] Work Phone: Start: 07-06-2024 End: 07-06-[address] Luis Hay MD Work Phone: [facility] Work Phone: Start: 06-24-2024 ambulatory Efewongbe Oleghe Facili ty:[facility] Start: 06-24-2024 Non-patient / Non-visit Dr. Luis Hay MD -[facility] Work Phone: Start: 06-24-2024 Dr. Luis Hya MD -[facility] Work Phone: Start: 06-06-2024 End: 06-06-2024 Patient encounter procedure Joseph Fonseca NP-C -[facility] Work Phone: Start: 06-06-2024 End: 06-06-2024 Joseph Fonseca NP-C -[facility] Work Phone: Start: 06-06-2024 End: 06-06-2024 ambulatory Efewongbe Oleghe Facility:[facility] Start: 06-04-2024 End: 06-04-2024 Dr. Jeb Cuellar MD -Emergency Department Work Phone: Start: 06-04-2024 End: 06-04-2024 Emergency department patient visit Dr. Luis Hay MD Work Phone: -Emergency Department Work Phone: Start: 05-27-2024 ambulatory Efewongbe Oleghe Facili ty:[facility] Start: 05-27-2024 Non-patient / Non-[facility] Start: [facility] Start: 05-18-2024 End: 05-18-2024 ambulatory Efewongbe Oleghe Facility:[facility] Start: 05-18-2024 End: 05-18-[address] [facility] Work [facility]: Start: 05-18-2024 End: 05-18-2024 Dr. Barry Odom MD [facility] Work Phone: Start: 05-13-2024 ambulatory Efewongbe Oleghe Facili ty:[facility] Start: 05-13-2024 Non-patient / Non-visit [facility] Work [facility]: Start: 05-13-2024 [facility]: Start: 04-29-2024 ambulatory Efewongbe Oleghe Facili ty:[facility] Start: 04-29-2024 Non-patient / Non-visit [facility]. [facility] Work Phone: Start: 04-29-2024 [facility] Start: 04-28-2024 End: 04-28-[address] Luis Hay MD -[facility] Work Phone: Start: 04-28-2024 End: 04-28-2024 Dr. Luis Hay MD -[facility] Work Phone: Start: 04-28-2024 End: 04-28-[address] Luis Hay MD Work Phone: [facility] Work Phone: Start: 04-28-2024 End: 04-28-2024 ambulatory Efewongbe Oleghe Facility:[facility] Start: 04-20-2024 End: 04-20-2024 ambulatory Efewongbe Oleghe Facility:[facility] Start: 04-20-2024 End: 04-20-[address] Barry Odom MD -[facility] Work Phone: Start: 04-20-2024 End: 04-20-2024 Dr. Barry Odom MD -[facility] Work Phone: Start: 04-08-2024 ambulatory Efewongbe Oleghe Facili ty:[facility] Start: 04-08-2024 Non-patient / Non-visit Dr. Luis Hay MD -[facility] Work Phone: Start: 04-08-2024 Dr. Luis Hay MD -[facility] Work Phone: Start: 03-31-2024 End: 03-31-[address] Tony Campos MD -Laboratory Work Phone: Start: 03-31-2024 End: 03-31-2024 Dr. Tony Campos MD -Laboratory Work Phone: Start: 03-31-2024 End: 03-31-2024 ambulatory Efewongbe Oleghe Facility:[facility] Start: 03-20-2024 ambulatory Efewongbe Oleghe Facili ty:[facility] Start: 03-20-2024 Non-patient / Non-visit Dr. Luis Hay MD -[facility] Work Phone: Start: 03-11-2024 ambulatory Efewongbe Oleghe Facili ty:[facility] Start: 03-11-2024 Non-patient / Non-visit Dr. Luis Hay MD -[facility] Work Phone: Start: 02-17-2024 End: 02-17-2024 ambulatory Efewongbe Oleghe Facility:[facility] Start: 02-17-2024 End: 02-17-[address] Barry Odom MD -[facility] Work Phone: Start: 02-17-2024 End: 02-17-2024 [facility] Start: 02-05-2024 ambulatory Efewongbe Oleghe Facili ty:[facility] Start: 02-05-2024 Non-patient / Non-visit Dr. Luis Hay MD -[facility] Work Phone: Start: 02-01-2024 End: 02-01-[address] Luis Hay MD -Laboratory Work Phone: Start: 02-01-2024 End: 02-01-2024 ambulatory Efewongbe Oleghe Facility:[facility] Start: 01-27-2024 End: 01-27-[address] Luis Hay MD -[facility] Work Phone: Start: 01-27-2024 End: 01-27-2024 ambulatory Efewongbe Oleghe Facility:[facility] Start: 01-27-2024 End: 01-27-2024 ambulatory Efewongbe Oleghe Facility:[facility] Start: 01-25-2024 ambulatory Efewongbe Oleghe Facili ty:[facility] Start: 01-25-2024 Non-patient / Non-visit Dr. Luis Hay MD -[facility] Work Phone: Start: 01-08-2024 ambulatory Efewongbe Oleghe Facili ty:[facility] Start: 01-08-2024 Non-patient / Non-visit Dr. Luis Hay MD -[facility] Work Phone: Start: 01-04-2024 End: 01-04-2024 ambulatory Efewongbe Oleghe Facility:[facility] Start: 12-25-2023 ambulatory Efewongbe Oleghe Facili ty:[facility] Start: 12-18-2023 ambulatory Efewongbe Oleghe Facili ty:[facility] Start: 12-10-2023 End: 12-10-2023 ambulatory Joseph Dowell Marian ESTEVES Facility:[facility] Start: 12-04-2023 ambulatory Efewongbe Oleghe Facili ty:[facility] Start: 11-20-2023 ambulatory Efewongbe Oleghe Facili ty:[facility] Start: 11-18-2023 End: 11-18-2023 ambulatory Barry Odom Facility:[facility] Start: 11-06-2023 ambulatory Efewongbe Oleghe Facili ty:[facility] Start: 10-23-2023 ambulatory Efewongbe Oleghe Facili ty:[facility] Start: 10-21-2023 End: 10-21-2023 ambulatory Efewongbe Oleghe Facility:[facility] Start: 10-09-2023 ambulatory Efewongbe Oleghe Facili ty:[facility] Start: 10-07-2023 End: 10-07-2023 ambulatory Efewongbe Oleghe Facility:[facility] Start: 10-02-2023 ambulatory Efewongbe Oleghe Facili ty:[facility] Start: 09-28-2023 ambulatory Terri Kristina Koram Facility :[facility] Start: 09-28-2023 End: 09-30-2023 Evaluation and management of inpatient Terri Kristina Koram Facility:[facility] Start: 09-25-2023 ambulatory Efewongbe Oleghe Facili ty:[facility] Start: 04-16-2023 End: 04-16-[address] Luis Hay Work Phone: [facility] Work Phone: Start: 04-15-2023 End: 04-15-[address] Luis Hay Work Phone: [facility] Work Phone: Start: 04-15-2023 End: 04-15-[address] Luis Hay Work Phone: [facility], [facility] Start: 04-10-2023 Non-patient / Non-visit Dr. Luis Hay Work Phone: [facility] Work Phone: Start: 03-30-2023 Non-patient / Non-visit Dr. Luis Hay Work Phone: [facility] Work Phone: Start: 03-23-2023 End: 03-23-[address] Luis Hay Work Phone: [facility] Work Phone: Start: 03-13-2023 Non-patient / Non-visit Dr. Luis Hay Work Phone: [facility] Work Phone: Start: 02-27-2023 Non-patient / Non-visit Dr. Luis Hay Work Phone: [facility] Work Phone: Start: 2023 Non-patient / Non-visit Dr. Luis Hay Work Phone: [facility] Work Phone: Start: 02-18-2023 End: 02-18-[address] Luis Hay Work Phone: [facility] Work Phone: Start: 02-06-2023 Non-patient / Non-visit Dr. Luis Hay Work Phone: [facility] Work Phone: Start: 01-18-2023 Non-patient / Non-visit Dr. Luis Hay Work Phone: [facility] Work Phone: Start: 01-14-2023 End: 01-14-[address] Luis Hay Work Phone: [facility] Work Phone: Start: 12-29-2022 Non-patient / Non-visit Dr. Luis Hay Work Phone: [facility] Work Phone: Start: 12-21-2022 End: 12-21-[address] Luis Hay Work Phone: [facility] Work Phone: Start: 10-31-2022 Non-patient / Non-visit Dr. Luis Hay Work Phone: [facility] Work Phone: Start: 10-29-2022 End: 10-29-[address] Luis Hay Work Phone: [facility] Work Phone: Start: 10-29-2022 End: 10-29-[address] Luis Hay Work Phone: [facility] Work Phone: Start: 10-22-2022 End: 10-22-[address] Luis Hay Work Phone: [facility] Work Phone: Start: 10-22-2022 End: 10-22-[address] Luis Hay Work Phone: [facility] Start: 10-10-2022 Non-patient / Non-[facility] Luis Hay [facility] Work [facility] Start: 09-27-2022 Non-patient / Non-visit Dr. Luis Hay [facility] Work [facility] Start: 09-14-2022 Non-patient / Non-visit Dr. Luis Hay Work Phone: [facility] Work Phone: Start: 08-29-2022 Non-patient / Non-visit Dr. Luis Hay [facility] Work [facility]: Start: 08-20-2022 End: 08-20-[address] Luis Hay Work Phone: [facility] Work Phone: Start: 08-16-2022 Non-patient / Non-visit Dr. Luis Hay [facility] Work [facility] Start: 08-08-2022 End: 08-08-[address] Luis Hay Work Phone: [facility]-Pulmonary Medicine [facility] Work Phone: Start: 07-28-2022 End: 07-28-[address] Luis Hay Work Phone: [facility] Work Phone: Start: 07-25-2022 Non-patient / Non-visit Dr. Luis Hay Work Phone: [facility] Work Phone: Start: 07-15-2022 End: 07-15-[address] Luis Hay Work Phone: [facility] Work Phone: Start: 07-11-2022 Non-patient / Non-visit Dr. Luis Hay Work Phone: [facility] Work Phone: Start: 04-17-2022 Non-patient / Non-visit Dr. Luis Hay Work Phone: [facility] Start: 04-17-2022 End: 04-17-[address] Luis Hay Work Phone: [facility] Work Phone: Start: 04-17-2022 End: 04-17-[address] Luis Hay Work Phone: [facility]-Cardiovascular Services Start: 04-14-2022 End: 04-14-[address] Luis Hay Work Phone: [facility] Work Phone: Start: 04-14-2022 End: 04-14-[address] Luis Hay Work Phone: [facility]-Labor[facility] Start: 04-13-2022 Non-patient / Non-visit Dr. Luis Hay Work Phone: [facility] Start: 04-09-2022 End: 04-09-[address] Luis Hay Work Phone: [facility] Start: 03-19-2022 Non-patient / Non-visit Dr. Luis Hay Work Phone: [facility] Start: 02-28-2022 Non-patient / Non-visit Dr. Luis Hay Work Phone: [facility] Start: 02-17-2022 Non-patient / Non-visit Dr. Luis Hay Work Phone: [facility] Start: 01-31-2022 Non-patient / Non-visit Dr. Luis Hay Work Phone: [facility] Start: 01-23-2022 End: 01-23-[address] Luis Hya Work Phone: [facility] Work Phone: Start: 01-23-2022 End: 01-23-[address] Luis Hay Work Phone: [place] Start: 01-23-2022 End: 01-23-[address] Luis Hay Work Phone: [facility] Start: 01-22-2022 End: 01-22-[address] Luis Hay Work Phone: [facility] Work Phone: Start: 01-22-2022 End: 01-22-[address] Luis Hay Work Phone: [facility]-Cardi[facility] Services Start: 01-22-2022 End: 01-22-[address] Luis Hay Work Phone: [facility] Start: 01-17-2022 Non-patient / Non-visit Dr. Luis Hay Work Phone: [facility] Start: 12-30-2021 Non-patient / Non-visit Dr. Luis Hay Work Phone: [facility] Start: 12-20-2021 Non-patient / Non-visit Dr. Luis Hay Work Phone: [facility] Start: 12-12-2021 End: 12-12-[address] Luis Hay Work Phone: [facility] Work Phone: Start: 12-12-2021 End: 12-12-[address] Luis Hay Work Phone: [facility] Start: 11-29-2021 End: 11-29-[address] Luis Hay Work Phone: [facility] Start: 11-29-2021 Non-patient / Non-visit Dr. Luis Hay Work Phone: [facility] Start: 11-21-2021 End: 11-21-[address] Luis Hay Work Phone: [facility] Start: 11-15-2021 Non-patient / Non-visit Dr. Luis Hay Work Phone: [facility] Start: 11-14-2021 End: 12-09-[address] Luis Hay Work Phone: [facility] Work Phone: Start: 11-14-2021 End: 12-09-[address] [facility] Start: 11-10-2021 Non-patient / Non-visit Dr. Luis Hay Work Phone: [facility] Start: 10-25-2021 Non-patient / Non-visit Dr. Luis Hay Work Phone: [facility] Start: 10-21-2021 End: 11-08-[address] Luis Hay Work Phone: [facility] Work Phone: Start: 10-21-2021 End: 11-08-[address] [facility] Start: 10-21-[address] Cherie Hay [facility] Start: 10-18-2021 End: 10-18-[address] Luis Hay Work Phone: [facility] Work Phone: Start: 10-18-2021 End: 10-18-[address] Luis Hay Work Phone: [place] Start: 10-18-2021 End: 10-18-[address] Luis Hay Work Phone: [facility] Start: 10-11-2021 Non-patient / Non-visit Dr. Luis Hay Work Phone: [facility] Start: 10-09-2021 End: 10-09-[address] Luis Hay Work Phone: [facility] Start: 09-28-2021 End: 09-28-[address] Luis Hay Work Phone: [facility] Start: 09-27-2021 Non-patient / Non-visit Dr. Luis Hay Work Phone: [facility] Start: 09-13-2021 Non-patient / Non-visit Dr. Luis Hay Work Phone: [facility] Start: 09-12-2021 End: 09-12-[address] Luis Hay Work Phone: [facility] Start: 09-12-2021 End: 10-09-[address] Luis Hay Work Phone: [facility] Work Phone: Start: 09-12-2021 End: 10-09-[address] [facility] Start: 09-03-2021 Non-patient / Non-visit Dr. Luis Hay Work Phone: [facility] Start: 08-16-2021 Non-patient / Non-visit Dr. Luis Hay Work Phone: [facility] Start: 08-15-2021 End: 09-08-[address] Luis [facility] Start: 08-05-2021 End: 08-05-[address] Nidia Geiger Work Phone: [facility] Start: 08-05-2021 Telephone encounter No Pcp Int [facility] Comment on above: Refill Request; Dayanna ent Update Start: 08-03-2021 End: 08-03-[address] Nidia Geiger Work Phone: [facility] Start: 08-02-2021 Non-patient / Non-visit Dr. Nidia Geiger Work Phone: [facility] Start: 07-31-2021 End: 08-08-[address] N[facility] Start: 07-19-2021 Non-patient / Non-visit Dr. Nidia Geiger Work Phone: [facility] Start: 07-18-2021 End: 07-18-[address] Nidia Geiger Work Phone: [facility] Start: 07-17-2021 End: 07-17-[address] Nidia Geiger Work Phone: [facility] Start: 07-15-[address] Nidia Geiger [facility] Start: 07-11-2021 End: 07-11-[address] Nidia Geiger Work Phone: [facility] Start: 07-05-2021 Non-patient / Non-visit Dr. Nidia Geiger Work Phone: [facility] Start: 07-04-2021 End: 07-04-2021 Admission to same day surgery center Dr. 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 Nidia Geiger Work Phone: [facility]-Pulmonary Medicine [facility] Start: 06-26-2021 End: 07-09-[address] N[facility] Ge[facility] Start: 06-26-[address] Nidia Geiger [facility] Start: 06-25-2021 Non-patient / Non-visit Dr. Nidia Geiger Work Phone: [facility] Start: 06-17-2021 End: 06-17-[address] Nidia Geiger Work Phone: [facility] Start: 06-17-2021 End: 06-17-[address] Nidia Geiger Work Phone: [facility] Start: 06-14-2021 Non-patient / Non-visit Dr. Nidia Geiger Work Phone: [facility] Start: 06-13-2021 ambulatory Marie Augustin PA-C Work Phone: Pulmonary Medicine Comment on above: results Start: 06-13-2021 Chart abstracting Marie cameron PAGordonC Work Phone: Pulmonary Medicine Start: 06-13-2021 E-mail encounter fro m caregiver Marie BARRIENTOSC Work Phone: [facility] Start: 06-07-2021 Non-patient / Non-visit Dr. Nidia Geiger Work Phone: [facility] Start: 06-05-2021 End: 06-05-[address] Nidia Geiger Work Phone: [facility] Start: 05-31-2021 Non-patient / Non-visit Dr. Nidia Geiger Work Phone: [facility] Start: 05-30-2021 ambulatory Beka Ryan RN Panel Lay Up Worker Management Comment on above: Community Monitoring Outreach (CDM Outreach) Start: 05-20-2021 End: 05-20-[address] Nidia Geiger Work Phone: [facility] Start: 05-17-2021 Non-patient / Non-visit Dr. Nidia Geiger Work Phone: [facility] Start: 05-03-2021 ambulatory Marie Augustin PA-C Work Phone: Pulmonary Medicine Comment on above: Oxygen tanks and com pressor Change of Doctor Start: 05-03-2021 Non-patient / Non-visit Dr. Nidia Geiger Work Phone: [facility] Start: 05-02-2021 End: 05-02-[address] [facility] Start: 04-30-2021 End: 04-30-[address] N[facility] Start: 04-30-2021 End: 04-30-[address] Nidia Geiger Work Phone: [facility] Start: 04-19-2021 Non-patient / Non-visit Dr. Nidia Geiger Work Phone: [facility] Start: 03-27-2021 End: 03-27-[address] Nidia Geiger Work Phone: [facility] Start: 03-18-2021 Non-patient / Non-visit Dr. Nidia Geiger Work Phone: [facility] Start: 02-13-2021 Non-patient / Non-visit Dr. Nidia Geiger Work Phone: [facility] Start: 01-11-2021 Non-patient / Non-visit Dr. Nidia Geiger Work Phone: [facility] Start: 06-06-2020 End: 06-06-2020 Subsequent hospital visit by physician [facility] Work Phone: Radiology Comment on above: Chronic bilateral th oracic back pain [M54.6, G89.29] Start: 05-24-2018 Patient encounter procedure SOWMYA DENNISON Facility:[facility] Start: 02-15-2018 Patient encounter procedure SOWMYA MULLERY Facility:[facility] Start: 11-02-2017 End: 11-03-2017 Patient encounter procedure SOWMYA DENNISON Facility:[facility] Start: 09-24-2017 End: 09-24-2017 Evaluation and management of inpatient ALIS PERDUE Facility:[facility] Start: 08-17-2017 Patient encounter procedure KIRK JOHNSTON Facility:[facility] Start: 07-27-2017 End: 07-27-2017 Patient encounter procedure SOWMYA DENNISON Facility:[facility] Start: 07-15-2017 End: 07-15-2017 Patient encounter procedure BREANNE GONZALEZ Facility:[facility] Start: 06-08-2017 End: 06-08-2017 Patient encounter procedure KIRK JOHNSTON Facility:[facility] Start: 06-01-2017 End: 06-01-2017 Patient encounter procedure KIRK JOHNSTON Facility:[facility] Start: 05-15-2017 End: 05-15-2017 Patient encounter procedure KIRK JOHNSTON Facility:[facility] Start: 05-01-2017 End: 05-01-2017 Patient encounter procedure LUIS Dowell JESÚS Facility:[facility] Start: 04-20-2017 End: 04-20-2017 Patient encounter procedure SOWMYA DENNISON Facility:[facility] Start: 04-10-2017 Patient encounter procedure LUIS Dowell JESÚS Facility:[facility] Start: 03-27-2017 End: 03-27-2017 Patient encounter procedure LUIS ESPINOSA Facility:[facility] Start: 02-16-2017 End: 02-16-2017 Patient encounter procedure KIRK JOHNSTON Facility:[facility] Start: 02-11-2017 End: 02-11-2017 Ambulatory [facility] Procedures Date Procedure Procedure Detail Performing Clinician Start: 07-22-2024 Plain chest X-ray Dr. Luis Hay MD Work Phone: Start: 07-22-2024 Blood count smear mcrscp w/mnl difrntl wbc count Dr. Luis Hay MD Work Phone: Start: 07-22-2024 Calculation of international normalized ratio Dr. Luis Hay MD Work Phone: Start: 07-22-[address] Cherie Hay MD Work Phone: Start: 07-22-2024 Mean corpuscular hemoglobin concentration determination Dr. Luis Hay MD Work Phone: Start: 07-22-2024 Nucleated red blood cell count procedure Dr. Luis Hay MD Work Phone: Start: 07-22-2024 Platelet mean volume determination Dr. Luis Hay MD Work Phone: Start: 07-21-2024 X-ray of esophagus with double contrast Dr. Luis Hay MD Work Phone: Start: 06-04-2024 Plain chest X-ray Dr. Luis Hay MD Work Phone: Start: 06-04-2024 Blood count smear mcrscp w/mnl difrntl wbc count Dr. Luis Hay MD Work Phone: Start: 06-04-2024 Calculation of international normalized ratio Dr. Luis Hay MD Work Phone: Start: 06-04-[address] Cherie Hay MD Work Phone: Start: 06-04-2024 Mean corpuscular hemoglobin concentration determination Dr. Luis Hay MD Work Phone: Start: 06-04-2024 Nucleated red blood cell count procedure Dr. Luis Hay MD Work Phone: Start: 06-04-2024 Platelet mean volume determination Dr. Luis Hay MD Work Phone: Start: 03-31-2024 Prostate specific antigen measurement Dr. Luis Hay MD Work Phone: Comment on above: This test was performed using the TPSA a ssay method for theADVANCE Medical chemistry system. Values obtained with differentassay methods [...] By: #### L IPNF, PSAS1, HBA1C, CMP ####[facility] [id number] [place], [place] [phone] Start: 06-06-2020 Radex spine thoracic 3 views [...] Activity Detail Author Start: 12-06-2028 Colonoscopy [address] [facility] Start: 12-06-2028 COLORECTAL CANCER SCREENING COLORECTAL CANCER SCREENING [facility] Start: 08-18-2024 Basic metabolic 2008 panel with ionized calcium - Serum or Plasma [facility] Start: 08-18-2024 Magnesium measurement [facility] Start: 07-22-2024 [facility] Start: 07-22-2024 [facility] Start: 06-04-2024 [facility] Start: 06-04-2024 [facility] Start: 10-11-2023 Covid-19 Vaccine ( season) Covid-19 Vaccine () [facility] Start: 10-11-2023 Influenza vaccination Influenza Vacc ine (#1) [facility] Start: 02-09-2023 Advance Directive Discussion Advance Directive Discussion [facility] Start: 01-14-2023 Patient referral [facility] Work Phone: Start: 2022 RSV Vaccine (1 - 1-d ose 75+ series) RSV Vaccine (1 - 1-dose 75+ series) [facility] Start: 12-18-2021 ANNUAL PCP TEAM PACKING MACHINE FEEDER PIETER DISEASE VISIT ANNUAL PCP TEAM CHRONIC DISEASE VISIT [facility] Start: 12-18-2021 BP CONTROLLED (<130/80) BP CONTROLLE D (<130/80) [facility] Start: 12-13-2021 Creatinine measurement Serum Creatin ine [facility] Start: 12-13-2021 Hepatitis B screening URINE ALBUMIN:CREATININE RATIO [facility] Start: 12-13-2021 Hepatitis B surface antibody level LDL CHOLESTEROL [facility] Start: 12-13-2021 SERUM CREATININE SERUM CREATININE [facility] Start: 06-17-2021 Patient referral [facility] Work Phone: Start: 06-05-2021 Patient referral [facility] Work Phone: Start: 06-03-2021 Adult depression screening assessment DEPRESSION SCREENING [facility] Start: 05-10-2021 Complete blood count Hemoglobin/Adi tocrit [facility] Start: 05-10-2021 HEMOGLOBIN/HEMATOCRIT HEMOGLOBIN/HEM ATOCRIT [facility] Start: 03-15-2021 Hemoglobin A1c measurement HbA1C [facility] Start: 03-15-2021 Hemoglobin A1c/Hemoglobin.total in Blood HBA1C [facility] Start: 02-09-2021 ADVANCE DIRECTIVE DISCUSSION ADVANCE DIRECTIVE DISCUSSION [facility] Start: 10-11-2020 COVID-19 VACCINE (3 - Booster for Moderna series) COVID-19 VACCINE (3 - Booster for Moderna series) [facility] Start: 06-15-2018 Influenza vaccination LUNG CANCER SC KANDI [facility] Start: 12-26-2017 FECAL OCCULT BLOOD FECAL OCCULT BLOO D [facility] Start: 1997 SHINGRIX VACCINE (1 of 2) SHINGRIX VACCINE (1 of 2) [facility] Start: 02-21-1992 COLOGUARD (FIT-DNA) COLOGUARD (FIT-D NA) [facility] Start: 02-21-[address] COLONOGRAPHY [facility] Start: 02-21-1992 SIGMOIDOSCOPY SIGMOIDOSCOPY [facility] Start: 1966 Urine microalbumin profile [facility] Start: 1965 ANNUAL PCP TEAM PACKING MACHINE FEEDER PIETER DISEASE VISIT ANNUAL PCP TEAM CHRONIC DISEASE VISIT [facility] Start: 1965 Anxiety Screening Anxiety Screening [facility] Start: 1965 BP Controlled (<130/80) BP Controlle d (<130/80) [facility] Start: 1965 Depression Screening Depression Scre ening [facility] Start: 1957 3 comp foot exam completed DIABETIC FOOT EXAM [facility] Start: 1957 Diabetic foot examination Diabetic Foot Exam [facility] Start: 1957 Glaucoma screening Dilated Retinal E xam [facility] Start: 1957 Hepatitis C antibody , confirmatory test DILATED RETINAL EXAM [facility] Anion gap in Serum o r Plasma [facility] BUN/Creatinine ratio [facility] Calcium [Mass/volume ] in Serum or Plasma [facility] Carbon dioxide, tota l [Moles/volume] in Central venous blood [facility] Creatinine [Mass/vol ume] in Serum or Plasma [facility] CT Chest [facility] Evaluation of diagno stic study results [facility] Glucose [Mass/volume ] in Serum or Plasma [facility] Magnesium measurement [facility] Measurement of renal function [facility] OXIMETRY - NOCTURNAL OXIMETRY - NOCTURNAL Procedures Routine Amiodarone pulmonary toxicity Dyspnea and respiratory abnormalities Ordered: 05/06/2021 [facility] Work Phone: Comment on above: Ordered: 05/06/2021 Patient Education [facility] Work Phone: Patient referral [facility] Work Phone: Potassium measurement [facility] Serum chloride measurement [facility] Sodium measurement [facility] Urea nitrogen [Mass/volume] in Serum or Plasma [facility] Urine microalbumin/creatinine ratio measurement [facility] Urine microalbumin/creatinine ratio measurement [facility] Immunizations Immunization Date Immunization Notes Care Provider Fa [facility] 10-21-2023 influenza, injectabl e, quadrivalent, preservative free Dr. Luis Hay MD Work Phone: [facility] 01-14-2023 influenza, injectabl e, quadrivalent, preservative free Dr. Luis Hay Work Phone: [facility] 04-24-2022 tetanus toxoid, redu jazzy diphtheria toxoid, and acellular pertussis vaccine, adsorbed Dr. Luis Hay Work Phone: [facility] 11-20-2021 Covid Pfizer Bivalen t Booster Dr. Luis Hay MD Work Phone: [facility] 02-12-2021 Covid (Moderna) Dr. Ping Hay MD Work Phone: [facility] 10-26-2020 influenza, high-dose , quadrivalent vaccine (FLUZONE HIGH DOSE QUADRIVALENT) Marie Cuellar PA-C Work Phone: [facility] 10-26-2020 influenza virus vacc ine, unspecified formulation Xr Agness Work Phone: [facility] 05-11-2020 COVID-19 vaccine, fu ll dose (MODERNA) Marie Cuellar PA-C Work Phone: [facility] Work Phone: 04-13-2020 COVID-19 vaccine, fu ll dose (MODERNA) Marie Cuellar PA-C Work Phone: [facility] Work Phone: 11-08-2019 influenza, high-dose , quadrivalent vaccine (FLUZONE HIGH DOSE QUADRIVALENT) Marie Alisa PA-C Work Phone: [facility] Work Phone: 12-13-2018 influenza, high dose seasonal, preservative-free Marie Alisa PA-C Work Phone: [facility] Work Phone: 10-16-2017 influenza, high dose seasonal, preservative-free Marie Alisa PA-C Work Phone: [facility] 12-01-2016 influenza, high dose seasonal, preservative-free Marie Alisa PA-C Work Phone: [facility] Work Phone: 04-02-2016 pneumococcal conjuga te vaccine, 13 valent Marie Alisa PA-C Work Phone: [facility] 01-14-2016 influenza, high dose seasonal, preservative-free Marie Alisa PA-C Work Phone: [facility] 09-27-2012 pneumococcal polysaccharide vaccine, 23 valent No Pcp [facility] Work Phone: Payers Date Payer Category Payer Self-pay [id number] 2023 Private Health Insurance [id number] 2020 Medicare HU[employer]NA MEDICARE HU[employer]NA MEDICARE PPO [id number] 2020-Present [phone] [address] [address] [place] [address] PPO [id number] 2018 Medicare HUMANA MEDICARE [facility] MEDICARE PPO PCP / [facility] MEDICARE PPO PCP [id number] 2018-2020 [address] [address] [place] [address] PPO [id number] 1947 Unknown [id number] 2.16.840.1.721295.3.579. 2.278 1947 Unknown [id number] 2.16.840.1.454003.3.579. 2.278 1947 Unknown [id number] 2.16.840.1.265209.3.579. 2.278 1947 Unknown [id number] 2.16.840.1.123458.3.579. 2.278 1947 Unknown [id number] 2.16.840.1.061800.3.579. 2.278 1947 Unknown [id number] 2.16.840.1.796970.3.579. 2.278 1947 Unknown [id number] 2.16.840.1.257564.3.579. 2.278 1947 Unknown [id number] 2.16.840.1.617604.3.579. 2.278 1947 Unknown [id number] 2.16.840.1.868012.3.579. 2.278 1947 Unknown [id number] 2.16.840.1.112203.3.579. 2.278 1947 Unknown [id number] 2.16.840.1.896721.3.579. 2.278 1947 Unknown [id number] 2.16.840.1.086555.3.579. 2.278 1947 Unknown [id number] 2.16.840.1.958312.3.579. 2.278 1947 Unknown [id number] 2.16.840.1.428718.3.579. 2.278 1947 Unknown [id number] 2.16.840.1.083185.3.579. 2.278 [facility] [id number] Unknown [id number] Unknown [id number] 2.16.840.1.165155.3.579. 2.462 Unknown [id number] 2.16.840.1.979575.3.579. 2.462 Unknown [id number] 2.16.840.1.357183.3.579. 2.462 Unknown [id number] 2..840.1.393058.3.579. 2.462 Unknown [id number] 2..840.1.214490.3.579. 2.462 Unknown [id number] 2..840.1.077321.3.579. 2.462 Unknown [id number] 2.840.1.316513.3.579. 2.462 Unknown [id number] 2..840.1.377930.3.579. 2.462 Unknown [id number] 2..840.1.450328.3.579. 2.462 Unknown [id number] 2.840.1.109755.3.579. 2.462 Unknown [id number] 2.840.1.338090.3.579. 2.462 Unknown [id number] 2..840.1.052353.3.579. 2.462 Unknown [id number] 2..840.1.090632.3.579. 2.462 Unknown [id number] 2.16.840.1.887131.3.579. 2.462 Unknown [id number] 2.16.840.1.460796.3.579. 2.462 Unknown [id number] 2.16.840.1.523090.3.579. 2.462 Unknown [id number] 2.16.840.1.533181.3.579. 2.462 Unknown [id number] 2.16.840.1.023461.3.579. 2.462 Unknown [id number] 2.16.840.1.268386.3.579. 2.462 Unknown [id number] 2.16.840.1.690363.3.579. 2.462 Unknown [id number] 2.16.840.1.990647.3.579. 2.462 Unknown [id number] 2.16.840.1.659323.3.579. 2.462 Unknown [id number] 2.16.840.1.237474.3.579. 2.462 Unknown [id number] 2.840.1.015750.3.579. 2.462 Unknown [id number] 2.840.1.839736.3.579. 2.462 Unknown [id number] 2..840.1.433171.3.579. 2.462 Unknown [id number] 2..840.1.978939.3.579. 2.462 Unknown [id number] 2.16.840.1.626277.3.579. 2.462 Unknown [id number] 2.16.840.1.012161.3.579. 2.462 Unknown [id number] 2.840.1.299744.3.579. 2.462 Unknown [id number] 2.16.840.1.587802.3.579. 2.462 Unknown [id number] 2.16.840.1.382077.3.579. 2.462 Unknown [id number] 2.16.840.1.201530.3.579. 2.462 Unknown [id number] 2.16.840.1.810446.3.579. 2.462 Unknown [id number] 2.840.1.624984.3.579. 2.462 Unknown [id number] 2.16.840.1.640920.3.579. 2.462 Unknown [id number] 2.16.840.1.902855.3.579. 2.462 Unknown [id number] 2.16.840.1.831514.3.579. 2.462 Unknown [id number] 2.16.840.1.366419.3.579. 2.462 Unknown [id number] 2.16.840.1.853966.3.579. 2.462 Unknown [id number] 2.16.840.1.706511.3.579. 2.462 Unknown [id number] 2.16.840.1.331640.3.579. 2.462 Unknown [id number] 2.16.840.1.516282.3.579. 2.462 Unknown [id number] 2.16.840.1.944537.3.579. 2.462 Unknown [id number] 2.16.840.1.344881.3.579. 2.462 Unknown [id number] 2.16.840.1.932023.3.579. 2.462 Unknown [id number] 2.16.840.1.807765.3.579. 2.462 Unknown [id number] 2.16.840.1.750775.3.579. 2.462 Unknown [id number] 2.16.840.1.853103.3.579. 2.462 Unknown [id number] 2.16.840.1.152291.3.579. 2.462 Unknown [id number] 2.16840.1.979249.3.579. 2.462 Social History Date Type Detail Facility Start: 07-17-2016 End: 08-04-2024 Tobacco smoking status NHIS Ex-smoker [facility] Start: 1955 End: 05-15-2016 History of tobacco use Current smoker [facility] Start: 1953 End: 05-15-2016 History of tobacco use Cigarette Smoker [facility] Start: 07-17-2016 End: 01-15-2020 Cigarettes smoked current (pack per day) - Reported [address] [facility] Start: 07-17-2016 End: 09-17-2017 Tobacco use and exposure Smokeless tobacco non-user [facility] Start: 06-06-2020 End: 12-18-2020 Alcohol intake Current non-drinker of alcohol (finding) [facility] Start: 11-02-2019 End: 12-13-2020 History SDOH Alcohol Frequency [address] [facility] Start: 07-17-2016 History SDOH Alcohol Comment no longer drinks [facility] Start: 11-02-2019 History SDOH Social Connections Phone [address] [facility] Start: 11-02-2019 End: 12-13-2020 History SDOH Social Connections Membership [address] [facility] Start: 11-02-2019 History SDOH Social Connections Living [address] [facility] Start: 11-02-2019 History SDOH Physical Activity DPW [address] [facility] Start: 11-02-2019 History SDOH Financial [address] [facility] Start: 11-02-2019 Education [address] [facility] Start: 09-17-2017 Tobacco Comment Parents smoked in childhood home. Spouse still smokes, though not in home. [facility] Start: 1945 Sex Assigned At Not on file [facility] Start: 04-30-2021 End: 04-16-2023 Tobacco smoking status IAIS Unknown if ever smoked [facility] Start: 12-05-2018 None [facility] Start: 08-23-2017 Spouse/ Significant Other [facility] Start: 06-18-2020 Non-smoker [facility] Start: 1945 Sex Assigned At Male [facility] Start: 11-02-2019 End: 01-15-2020 Social connection and isolation panel [facility] Do you belong to any clubs or organizations such as moravian groups, unions, fraternal or athletic groups, or school groups? No [facility] Are you now , , , , never or living with a partner? [facility] How often to you hav e a drink containing alcohol? Never [facility] Average Number of Drinks Not on file [facility] How hard is it for y ou to pay for the very basics like food, housing, medical care, and heating Not very hard [facility] Do you feel stress - tense, restless, nervous, or anxious, or unable to sleep at night because your mind is troubled all the time - these days [OSQ] To some extent [facility] (I/We) worried whekai er (my/our) food would run out before (I/we) got money to buy more. Never true [facility] Start: 11-02-2019 Gender identity Identifies as male gender (finding) [facility] Start: 05-07-2020 End: 06-06-2020 Exposure to SARS-CoV-2 (event) Not sure [facility] Start: 05-05-2024 End: 06-04-2024 Sex Male (finding) [facility] Medical Equipment Procedure Code Equipment Code Equipment Origin al Text Equipment Identifier Dates Blood Sugar Diagnostic (Freestyle Lite Strips) strip Start: 05-06-2021 Lancets (Freesty le Lancets) 28 gauge [facility] Start: 05-06-2021 Blood Sugar Diagnostic (Freestyle Lite Strips) strip Start: 05-01-2021 End: 05-06-2021 Lancets (Freesty le Lancets) 28 gauge misc Start: 05-01-2021 End: 05-06-2021 Blood Sugar Diagnostic (Freestyle Lite Strips) strip Start: 05-06-2021 Lancets (Freesty le Lancets) 28 gauge misc Start: 05-06-2021 Blood Sugar Diagnostic (Freestyle Lite Strips) strip Start: 05-01-2021 End: 05-06-2021 Lancets (Freesty le Lancets) 28 gauge misc Start: 05-01-2021 End: 05-06-2021 Blood Sugar Diagnostic (Freestyle Lite Strips) strip Start: 05-06-2021 Lancets (Freesty le Lancets) 28 gauge misc Start: 05-06-2021 Blood Sugar Diagnostic (Freestyle Lite Strips) strip Start: 05-01-2021 End: 05-06-2021 Lancets (Freesty le Lancets) 28 gauge misc Start: 05-01-2021 End: 05-06-2021 ([id number]) [id number] [facility] Start: 07-04-2021 Blood Sugar Diagnostic (Freestyle Lite Strips) strip Start: 05-06-2021 Lancets (Freesty le Lancets) 28 gauge misc Start: 05-06-2021 Blood Sugar Diagnostic (Freestyle Lite Strips) strip Start: 05-01-2021 End: 05-06-2021 Lancets (Freesty le Lancets) 28 gauge misc Start: 05-01-2021 End: 05-06-2021 Blood Sugar Diagnostic (Freestyle Lite Strips) strip Start: 05-06-2021 Lancets (Freesty le Lancets) 28 gauge misc Start: 05-06-2021 Blood Sugar Diagnostic (Freestyle Lite Strips) strip Start: 05-01-2021 End: 05-06-2021 Lancets (Freesty le Lancets) 28 gauge misc Start: 05-01-2021 End: 05-06-2021 Blood Sugar Diagnostic (Freestyle Lite Strips) strip Start: 05-06-2021 Lancets (Freesty le Lancets) 28 gauge misc Start: 05-06-2021 Blood Sugar Diagnostic (Freestyle Lite Strips) strip Start: 05-01-2021 End: 05-06-2021 Lancets (Freesty le Lancets) 28 gauge misc Start: 05-01-2021 End: 05-06-2021 Blood Sugar Diagnostic (Freestyle Lite Strips) strip Start: 05-06-2021 Lancets (Freesty le Lancets) 28 gauge misc Start: 05-06-2021 Blood Sugar Diagnostic (Freestyle Lite Strips) strip Start: 05-01-2021 End: 05-06-2021 Lancets (Freesty le Lancets) 28 gauge misc Start: 05-01-2021 End: 05-06-2021 Blood Sugar Diagnostic (Freestyle Lite Strips) strip Start: 05-06-2021 Lancets (Freesty le Lancets) 28 gauge misc Start: 05-06-2021 Blood Sugar Diagnostic (Freestyle Lite Strips) strip Start: 05-01-2021 End: 05-06-2021 Lancets (Freesty le Lancets) 28 gauge misc Start: 05-01-2021 End: 05-06-2021 Blood Sugar Diagnostic (Freestyle Lite Strips) strip Start: 05-06-2021 Lancets (Freesty le Lancets) 28 gauge misc Start: 05-06-2021 Blood Sugar Diagnostic (Freestyle Lite Strips) strip Start: 05-01-2021 End: 05-06-2021 Lancets (Freesty le Lancets) 28 gauge misc Start: 05-01-2021 End: 05-06-2021 Blood Sugar Diagnostic (Freestyle Lite Strips) strip Start: 05-06-2021 Lancets (Freesty le Lancets) 28 gauge misc Start: 05-06-2021 Blood Sugar Diagnostic (Freestyle Lite Strips) strip Start: 05-01-2021 End: 05-06-2021 Lancets (Freesty le Lancets) 28 gauge misc Start: 05-01-2021 End: 05-06-2021 Blood Sugar Diagnostic (Freestyle Lite Strips) strip Start: 05-06-2021 Lancets (Freesty le Lancets) 28 gauge misc Start: 05-06-2021 Blood Sugar Diagnostic (Freestyle Lite Strips) strip Start: 05-01-2021 End: 05-06-2021 Lancets (Freesty le Lancets) 28 gauge misc Start: 05-01-2021 End: 05-06-2021 Blood Sugar Diagnostic (Freestyle Lite Strips) strip Start: 05-06-2021 Lancets (Freesty le Lancets) 28 gauge misc Start: 05-06-2021 Blood Sugar Diagnostic (Freestyle Lite Strips) strip Start: 05-01-2021 End: 05-06-2021 Lancets (Freesty le Lancets) 28 gauge misc Start: 05-01-2021 End: 05-06-2021 Blood Sugar Diagnostic (Freestyle Lite Strips) strip Start: 05-06-2021 Blood Sugar Diagnostic (True Metrix Glucose Test Strip) strip Start: 02-05-2022 Lancets (Freesty le Lancets) 28 gauge misc Start: 05-06-2021 Lancets (Trueplu s Lancets) 33 gauge misc Start: 02-05-2022 Blood Sugar Diagnostic (Freestyle Lite Strips) strip Start: 05-01-2021 End: 05-06-2021 Blood Sugar Diagnostic (True Metrix Glucose Test Strip) strip Start: 02-05-2022 End: 02-05-2022 Lancets (Freesty le Lancets) 28 gauge misc Start: 05-01-2021 End: 05-06-2021 Lancets (Trueplu s Lancets) 33 gauge misc Start: 02-05-2022 End: 02-05-2022 Blood Sugar Diagnostic (Freestyle Lite Strips) strip Start: 05-06-2021 Blood Sugar Diagnostic (True Metrix Glucose Test Strip) strip Start: 02-05-2022 Lancets (Freesty le Lancets) 28 gauge misc Start: 05-06-2021 Lancets (Trueplu s Lancets) 33 gauge misc Start: 02-05-2022 Blood Sugar Diagnostic (Freestyle Lite Strips) strip Start: 05-01-2021 End: 05-06-2021 Blood Sugar Diagnostic (True Metrix Glucose Test Strip) strip Start: 02-05-2022 End: 02-05-2022 Lancets (Freesty le Lancets) 28 gauge misc Start: 05-01-2021 End: 05-06-2021 Lancets (Trueplu s Lancets) 33 gauge misc Start: 02-05-2022 End: 02-05-2022 Blood Sugar Diagnostic (Freestyle Lite Strips) strip Start: 05-06-2021 Blood Sugar Diagnostic (True Metrix Glucose Test Strip) strip Start: 02-05-2022 Lancets (Freesty le Lancets) 28 gauge misc Start: 05-06-2021 Lancets (Trueplu s Lancets) 33 gauge misc Start: 02-05-2022 Blood Sugar Diagnostic (Freestyle Lite Strips) strip Start: 05-01-2021 End: 05-06-2021 Blood Sugar Diagnostic (True Metrix Glucose Test Strip) strip Start: 02-05-2022 End: 02-05-2022 Lancets (Freesty le Lancets) 28 gauge misc Start: 05-01-2021 End: 05-06-2021 Lancets (Trueplu s Lancets) 33 gauge misc Start: 02-05-2022 End: 02-05-2022 Blood Sugar Diagnostic (Freestyle Lite Strips) strip Start: 05-06-2021 Blood Sugar Diagnostic (True Metrix Glucose Test Strip) strip Start: 04-21-2022 Lancets (Freesty le Lancets) 28 gauge misc Start: 05-06-2021 Lancets (Trueplu s Lancets) 33 gauge misc Start: 02-05-2022 Blood Sugar Diagnostic (Freestyle Lite Strips) strip Start: 05-01-2021 End: 05-06-2021 Blood Sugar Diagnostic (True Metrix Glucose Test Strip) strip Start: 02-05-2022 End: 02-05-2022 Blood Sugar Diagnostic (True Metrix Glucose Test Strip) strip Start: 02-05-2022 End: 04-21-2022 Lancets (Freesty le Lancets) 28 gauge misc Start: 05-01-2021 End: 05-06-2021 Lancets (Trueplu s Lancets) 33 gauge misc Start: 02-05-2022 End: 02-05-2022 Blood Sugar Diagnostic (Freestyle Lite Strips) strip Start: 05-06-2021 Blood Sugar Diagnostic (True Metrix Glucose Test Strip) strip Start: 09-10-2022 Lancets (Freesty le Lancets) 28 gauge misc Start: 05-06-2021 Lancets (Trueplu s Lancets) 33 gauge misc Start: 10-27-2022 Blood Sugar Diagnostic (Freestyle Lite Strips) strip Start: 05-01-2021 End: 05-06-2021 Blood Sugar Diagnostic (True Metrix Glucose Test Strip) strip Start: 02-05-2022 End: 02-05-2022 Blood Sugar Diagnostic (True Metrix Glucose Test Strip) strip Start: 02-05-2022 End: 04-21-2022 Blood Sugar Diagnostic (True Metrix Glucose Test Strip) strip Start: 04-21-2022 End: 06-05-2022 Blood Sugar Diagnostic (True Metrix Glucose Test Strip) strip Start: 06-05-2022 End: 06-06-2022 Blood Sugar Diagnostic (True Metrix Glucose Test Strip) strip Start: 06-06-2022 End: 09-10-2022 Blood Sugar Diagnostic (True Metrix Glucose Test Strip) strip Start: [...] misc Start: 08-11-2022 End: 10-27-2022 Blood Sugar Diagnostic (Freestyle Lite Strips) strip Start: 05-06-2021 Blood Sugar Diagnostic (True Metrix Glucose Test Strip) strip Start: 09-10-2022 Lancets (Freesty le Lancets) 28 gauge misc Start: 05-06-2021 Lancets (Trueplu s Lancets) 33 gauge misc Start: 10-27-2022 Blood Sugar Diagnostic (Freestyle Lite Strips) strip Start: 05-01-2021 End: 05-06-2021 Blood Sugar Diagnostic (True Metrix Glucose Test Strip) strip Start: 02-05-2022 End: 02-05-2022 Blood Sugar Diagnostic (True Metrix Glucose Test Strip) strip Start: 02-05-2022 End: 04-21-2022 Blood Sugar Diagnostic (True Metrix Glucose Test Strip) strip Start: 04-21-2022 End: 06-05-2022 Blood Sugar Diagnostic (True Metrix Glucose Test Strip) strip Start: 06-05-2022 End: 06-06-2022 Blood Sugar Diagnostic (True Metrix Glucose Test Strip) strip Start: 06-06-2022 End: 09-10-2022 Blood Sugar Diagnostic (True Metrix Glucose Test Strip) strip Start: [...] misc Start: 08-11-2022 End: 10-27-2022 Blood Sugar Diagnostic (Freestyle Lite Strips) strip Start: 05-06-2021 Blood Sugar Diagnostic (True Metrix Glucose Test Strip) strip Start: 11-17-2022 Lancets (Freesty le Lancets) 28 gauge misc Start: 05-06-2021 Lancets (Trueplu s Lancets) 33 gauge misc Start: 10-27-2022 Blood Sugar Diagnostic (Freestyle Lite Strips) strip Start: 05-01-2021 End: 05-06-2021 Blood Sugar Diagnostic (True Metrix Glucose Test Strip) strip Start: 02-05-2022 End: 02-05-2022 Blood Sugar Diagnostic (True Metrix Glucose Test Strip) strip Start: 02-05-2022 End: 04-21-2022 Blood Sugar Diagnostic (True Metrix Glucose Test Strip) strip Start: 04-21-2022 End: 06-05-2022 Blood Sugar Diagnostic (True Metrix Glucose Test Strip) strip Start: 06-05-2022 End: 06-06-2022 Blood Sugar Diagnostic (True Metrix Glucose Test Strip) strip Start: 06-06-2022 End: 09-10-2022 Blood Sugar Diagnostic (True Metrix Glucose Test Strip) strip Start: 09-10-2022 End: 09-10-2022 Blood Sugar Diagnostic (True Metrix Glucose Test Strip) strip Start: [...] 33 gauge misc Start: 08-11-2022 End: 10-27-2022 [id number] [id number] Start: 06-21-2013 Blood Sugar Diagnostic (Freestyle Lite Strips) strip Start: 05-06-2021 Blood Sugar Diagnostic (True Metrix Glucose Test Strip) strip Start: 11-18-2023 Lancets (Freesty le Lancets) 28 gauge misc Start: 10-05-2023 Lancets (Trueplu s Lancets) 33 gauge misc Start: 10-05-2023 Blood Sugar Diagnostic (Freestyle Lite Strips) strip Start: 05-01-2021 End: 05-06-2021 Blood Sugar Diagnostic (True Metrix Glucose Test Strip) strip Start: 02-05-2022 End: 02-05-2022 Blood Sugar Diagnostic (True Metrix Glucose Test Strip) strip Start: 02-05-2022 End: 04-21-2022 Blood Sugar Diagnostic (True Metrix Glucose Test Strip) strip Start: 04-21-2022 End: 06-05-2022 Blood Sugar Diagnostic (True Metrix Glucose Test Strip) strip Start: 06-05-2022 End: 06-06-2022 Blood Sugar Diagnostic (True Metrix Glucose Test Strip) strip Start: 06-06-2022 End: 09-10-2022 Blood Sugar Diagnostic (True Metrix Glucose Test Strip) strip Start: 09-10-2022 End: 09-10-2022 Blood Sugar Diagnostic (True Metrix Glucose Test Strip) strip Start: 09-10-2022 End: 11-17-2022 Blood Sugar Diagnostic (True Metrix Glucose Test Strip) strip Start: [...] misc Start: 10-27-2022 End: 10-05-2023 Blood Sugar Diagnostic (Freestyle Lite Strips) strip Start: 05-06-2021 Blood Sugar Diagnostic (True Metrix Glucose Test Strip) strip Start: 11-18-2023 Lancets (Freesty le Lancets) 28 gauge misc Start: 10-05-2023 Lancets (Trueplu s Lancets) 33 gauge misc Start: 10-05-2023 Blood Sugar Diagnostic (Freestyle Lite Strips) strip Start: 05-01-2021 End: 05-06-2021 Blood Sugar Diagnostic (True Metrix Glucose Test Strip) strip Start: 02-05-2022 End: 02-05-2022 Blood Sugar Diagnostic (True Metrix Glucose Test Strip) strip Start: 02-05-2022 End: 04-21-2022 Blood Sugar Diagnostic (True Metrix Glucose Test Strip) strip Start: 04-21-2022 End: 06-05-2022 Blood Sugar Diagnostic (True Metrix Glucose Test Strip) strip Start: 06-05-2022 End: 06-06-2022 Blood Sugar Diagnostic (True Metrix Glucose Test Strip) strip Start: 06-06-2022 End: 09-10-2022 Blood Sugar Diagnostic (True Metrix Glucose Test Strip) strip Start: 09-10-2022 End: 09-10-2022 Blood Sugar Diagnostic (True Metrix Glucose Test Strip) strip Start: 09-10-2022 End: 11-17-2022 Blood Sugar Diagnostic (True Metrix Glucose Test Strip) strip Start: [...] misc Start: 10-27-2022 End: 10-05-2023 Blood Sugar Diagnostic (Freestyle Lite Strips) strip Start: 05-06-2021 Blood Sugar Diagnostic (True Metrix Glucose Test Strip) strip Start: 11-18-2023 Lancets (Freesty le Lancets) 28 gauge misc Start: 10-05-2023 Lancets (Trueplu s Lancets) 33 gauge misc Start: 10-05-2023 Blood Sugar Diagnostic (Freestyle Lite Strips) strip Start: 05-01-2021 End: 05-06-2021 Blood Sugar Diagnostic (True Metrix Glucose Test Strip) strip Start: 02-05-2022 End: 02-05-2022 Blood Sugar Diagnostic (True Metrix Glucose Test Strip) strip Start: 02-05-2022 End: 04-21-2022 Blood Sugar Diagnostic (True Metrix Glucose Test Strip) strip Start: 04-21-2022 End: 06-05-2022 Blood Sugar Diagnostic (True Metrix Glucose Test Strip) strip Start: 06-05-2022 End: 06-06-2022 Blood Sugar Diagnostic (True Metrix Glucose Test Strip) strip Start: 06-06-2022 End: 09-10-2022 Blood Sugar Diagnostic (True Metrix Glucose Test Strip) strip Start: 09-10-2022 End: 09-10-2022 Blood Sugar Diagnostic (True Metrix Glucose Test Strip) strip Start: 09-10-2022 End: 11-17-2022 Blood Sugar Diagnostic (True Metrix Glucose Test Strip) strip Start: [...] Falls Mental Status Date Assessment Result Facility 07-22-2024 Cognitive function Voice/Name [facility] Work Phone: 06-04-2024 Cognitive function Awake;Alert;A ppropriate;Fol lows Commands [facility] Work Phone: Clinical Notes 06-09-2013 to 08-04-2024 Note Date & Type Note Facility 08-04-2024 Progress note Note Date/Time August 04, 2024 2:53pm [facility] [address] [place] [address] OFFICE VISIT Date of Service: 08/04/24 MR#: [id number] Acct: [id number] Name: EDUARD LEOS III Rep #: [id number] : 1945 Provider: PHILLY Stover Age/Sex: 79/M Location: [facility] Status: Signed Intake Vital Signs 07/22/24 19:28 08/04/24 14:10 Height 5 ft 9 in 5 ft 9 in Weight: 228 lb BMI 33.6 BP 94/58 L Respiration 18 Pulse 70 Temp 97.8 F Temp Source Temporal Pulse Oximetry (%) 91 Oxygen Delivery Method room air Intake Visit Reasons: PT HAD BARIUM TABLET GET STUCK IN GE JUNCTION Chief Complaint: 3 M FU Is patient in pain?: No Allergies gemfibrozil Allergy (Intermediate, Verified 08/04/24 14:04) upset stomach; constipation amiodarone Adverse Reaction (Severe, Verified 08/04/24 14:04) Pulmonary fibrosis esomeprazole magnesium (From Nexium) Adverse Reaction (Verified 08/04/24 14:04) Diarrhea Medications ?Medication ?Instructions ?Recorded ?Confirmed ?Type blood sugar diagnostic (FreeStyle #100 ea 05/06/21 Rx Lite Strips) blood-glucose meter (FreeStyle #1 ea 05/06/21 08/04/24 Rx Lite Meter kit) blood glucose control, low (True #1 ea 08/11/22 Rx Metrix Level 1 solution) lancing device (TRUEdraw Lancing #1 ea 08/11/22 Rx Device) Handicap Placard #1 ea 07/20/23 08/04/24 Rx lancets 28 gauge (FreeStyle #200 ea 10/05/23 08/04/24 Rx Lancets) lancets 33 gauge (TRUEplus Lancets) #300 ea 10/05/23 0 08/04/24 Rx trazodone 50 mg tablet 50 mg PO QHS sleep #90 tabs 10/21/23 08/04/24 Rx blood sugar diagnostic (True #300 ea 11/18/23 08/04/24 Rx Metrix Glucose Test Strip) warfarin 7.5 mg tablet See Rx Instructions .Route 1 03/29/23 08/04/24 History .COMPLEX blood thinner sacubitril 49 mg-valsartan 51 mg 1 tab PO BID heart #1 80 tabs 04/04/24 08/04/24 Rx tablet (Entresto) atorvastatin 40 mg tablet 40 mg PO QHS cholesterol #90 tabs 05/16/24 08/04/24 Rx metformin 1,000 mg tablet 1,000 mg PO BID diabetes #18 0 tabs 05/18/24 08/04/24 Rx spironolactone 25 mg tablet 25 mg PO QDAY blood pressu re #90 06/06/24 08/04/24 Rx tabs pantoprazole 40 mg tablet,delayed 40 mg PO BID reflux #180 tabs 07/18/24 08/04/24 Rx release tamsulosin 0.4 mg capsule 0.4 mg PO DAILY 07/22/24 History glimepiride 4 mg tablet 4 mg PO QDAY diabetes 08/04/24 History aspirin 81 mg tablet 81 mg PO QDAY 08/04/2408/04 History Have you fallen in the past year?: Yes Nurse's Note: Pills and foods are getting stuck in throat. [facility] Medical History Odynophagia Viral syndrome Hearing difficulty Hemorrhoids Hypersomnolence IVON (obstructive sleep apnea) Heart failure with reduced ejection fraction Flu vaccine need CKD (chronic kidney disease), stage III Type 2 diabetes mellitus Hyperglycemia Chronic diarrhea BPH (benign prostatic hyperplasia) Weight loss, non-intentional Atrial fibrillation long-term (current) use of anticoagulants Presence of stent in coronary artery (~02/21/13) Mixed hyperlipidemia CVA (cerebral vascular accident) Chronic systolic (congestive) heart failure Ischemic cardiomyopathy 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 Essential hypertension Surgical History History of cholecystectomy Presence of coronary angioplasty implant and graft (~02/21/13) History of cardiac radiofrequency ablation Presence of implantable cardioverter-defibrillator (ICD) (~06/21/13) Family History Mother CVA (cerebral vascular accident) Hypertension Grandfather Heart disease Father Cancer testicular Thyroid cancer Sister Cancer Breast Lung cancer Social History (Updated 08/04/24 @ 14:39 by PHILLY Michelle) household members: spouse housing: house number of children: 3 current occupational status: retired current occupational exposures/hazards: No Smoking Status: Former smoker Tobacco: How many years used: 61 Electronic Cigarette Use: not used second hand exposure: Yes alcohol intake: never substance use type: does not use HPI HPI Chief Complaint: 3 M FU Details: EDUARD LEOS, is a 79 M who presents to the office today for - referred by ENT - dysphagia to pills - cold drinks cause cramp in the throat, drinking warm fluids resolves cramp - denies odynophagia - history of reflux - report she typically does not have trouble swallowing pills if he takes them with room temp water - ZACARIAS, 91% on RA - HFrEF - atrial fibrillation, ICD placement on 06/21/2013, superimposed upon a history of CVA Esophagram completed - h/o EGD, last 5 years ago with dilation - per patient last colonoscopy 5 years ago, this was normal - no family h/o colon CA The patient is a 79-year-old male presenting with difficulty swallowing pills. He reports taking 25 pills daily, with larger pills becoming increasingly difficult to swallow, although he has no issues with food. Cold drinks cause throat cramps, a long-standing issue, but warm drinks alleviate the discomfort. An esophagram performed on July 21, 2024, revealed a 12-mm barium tablet trappedat the gastroesophageal junction, with no esophageal mass or obstruction noted. The patient does not feel the pill getting stuck but experiences a body-defense reaction making swallowing difficult. He has a history of atrial fibrillation, with a recent episode two weeks prior, requiring emergency room evaluation. He is on warfarin with an INR typically between 2 and 3, though it drops slightly during summer due to increased salad consumption. The patient has diabetes mellitus, with a recent glucose reading of 148 mg/dL and an A1c of 7.6%. He does not use insulin and is not a candidate for glucose monitors. The patient has a significant smoking history, having smoked for 61 years but quit nine years ago, coinciding with cessation of defibrillator discharges. Attestation: Documentation on this patient encounter was supported using ambient scribe technology/ voice AI technology. The patient consented to recording for the purpose of documenting the encounter. Provider reviewed content of the generated note prior to signature. ROS Const Constitutional: No fatigue, fever(s) or weight change ENT ENT: Positive for difficulty swallowing Gastro GI: Positive for abdominal pain, diarrhea, heartburn and difficulty swallowing; No belching, bloating, change in bowel habits, change in stool character, coffeeground emesis, constipation, cramping, feeling full early, excessive flatus, incontinent of stools, Vomiting blood/hematemesis, Blood in stool, loose stools,Black,tarry stools, nausea/dyspepsia, pain with swallowing, vomiting or other Musc Musculoskeletal: Positive for abnormal gait, joint pain, back pain, muscle cramps, numbness, stiffness, tingling, Arthritis and restless legs Skin Skin: Positive for dry skin; No yellowing of the eye or itchy eyes Neuro Neurology: Positive for abnormal gait, numbness, tingling and restless legs Psych Psychiatric: Positive for anxiety and No depression Endo Endocrine: No fatigue or weight change Aller/Imm Allergy/Immunologic: No itchy eyes Adi/Lymp Hematologic/Lymphatic: Positive for easy bleeding and easy bruising Exam Const General: cooperative, healthy appearing, no acute distress and well developed Nutritional Appearance: well nourished Orientation: alert and oriented x3 HENMT Head: normocephalic Ears: hearing grossly normal bilaterally Mouth: moist mucous membranes Teeth and gingiva: dentition normal Eyes Conjunctivae: conjunctivae normal Sclera: sclerae normal Neck Neck: normal visual inspection, full ROM and trachea midline Resp Effort & Inspection: normal respiratory effort, able to speak in complete sentences and symmetric chest movement Neuro General: patient alert and patient oriented x3 Cranial Nerves: other (CN's grossly intact, non-focal exam) Cognition: normal cognition Speech: speech normal Psych Appearance: grossly normal and well kempt Affect: normal affect Attitude: cooperative Thought Process: normal Assessment and Plan Assessment and Plan (1) Dysphagia: Status: Acute Plan: The plan includes performing an upper endoscopy to assess and potentially dilatethe gastroesophageal junction narrowing. Cardiac clearance is required prior to the procedure due to the patient's history of atrial fibrillation. Medications: Changed From glimepiride 4 mg PO BID 3 months 180 tabs 3RF diabetes To glimepiride 4 mg PO QDAY diabetes Plan The patient is a 79-year-old male with a history of HFrEF (15%), AICD, atrial fibrillation and diabetes mellitus, presenting with dysphagia. The esophagram indicates narrowing at the gastroesophageal junction, which may contribute to the difficulty swallowing pills. He denies any difficulty with solid foods and reports swallowing pills with room temp water he has less difficulty. The patient manages atrial fibrillation with warfarin, maintaining an INR between 2 and 3, though dietary habits affect this range. The patient's significant smoking history is notable, though cessation has positively impacted his cardiachealth. I have scheduled him for an EGD to evaluate further. Patient Instructions: - Take pills with room temperature water to avoid esophageal irritation. - Schedule an upper endoscopy after obtaining cardiac clearance. Coding Level of Care Code Off vis,new,level 4 Diagnoses Dysphagia R13.10 Clinical Quality Measures Falls Risk Screening/Assistive Devices Have you fallen in the past year?: Yes Smoking Screening Smoking Status: Former smoker 08/04/24 [id number] <Electronically signed by Marie FRAGA> Date _ Marie FRAGA Cosigner Signature: Date (if applicable) CC: ~ [facility] [employer] Work Phone: 1(448) 244-758006-13-2025 Radiology Diagnostic study [facility]06-12-2025 Radiology Diagnostic study [facility]04-26-2025 Discharge summary [facility] Medical Records Department [address] [place] [address] Emergency Department Summary 06/04/24 MR#: [id number] Acct: [id number] Name: EDUARD LEOS III Rep #: [id number] : 1945 79 From: Jeb Cuellar MD [...] feels better. He had no syncope. Symptoms wokehim up. No recent illness. He has a history of heart stents, significant cardiomyopathywith a 15% ejection fraction in the past, episodes of ventricular tachycardia inthe past, and an AICD. It did not fire tonight. His device is a [facility] Medical History Odynophagia Viral syndrome Hearing difficulty Hemorrhoids Hypersomnolence IVON (obstructive sleep apnea) Heart failure with reduced ejection fraction Flu vaccine need CKD (chronic kidney disease), stage III Type 2 diabetes mellitus Hyperglycemia Chronic diarrhea BPH (benign prostatic hyperplasia) Weight loss, non-intentional Atrial fibrillation long-term (current) use of anticoagulants Presence of stent in coronary artery (~02/21/13) Mixed hyperlipidemia CVA (cerebral vascular accident) Chronic systolic (congestive) heart failure Ischemic cardiomyopathy 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 I reviewed this report, and I spoke with the hemodialysis technician for [facility] who reviewed it as well. The patient had 5 episodes that were labeled as SVT by the device, he had no episodes of ventricular fibrillation orV. tach. These 5 episodes all occurred this morning and match the timeframe when the patient had the symptoms as I reviewed them with him. 1 episode lasted for 15 minutes, the rest of the episodes were less than 1 minute. The ventricular response is irregular, therefore the hemodialysis technician states this is all consistent with [...] metoprolol, and has an appointment with his glass designer after the weekend on Thursday, I am [...] (Auto) 46.9 L Lymph % (Auto) 40.9 [place] % (Auto) 8.9 Eos % (Auto) 2.4 [...] IMPRESSION: No acute cardiopulmonary process. Reading Location: [facility] Rhythm Strip Rhythm Strip: Sinus Rhythm Rate: 80 Ectopy: PVC(s) EKG Initial EKG: Attestation: I personally reviewed and interpreted this EKG as follows: Interpretation: Sinus Rhythm (With occasional atrial pacing and occasionalPVCs), No Acute Injury Pattern and LAFB Prior EKG tracings: available for review Prior: Unchanged Management Discussion w/another healthcare provider: [facility] ([facility] AICD/pacer hemodialysis technician) Discharge Plan Triage Chief Complaint: Chest [...] % cream with perineal applicator 1 applic [place] BID PRN PRN (Reason: hemorrhoids) furosemide 20 [...] just take a single pill. Print Language: Maldivian Disposition Disposition: Home, Self Care What to do if you have Problems For any increased pain, shortness of breath, bleeding, nausea or vomiting, chestpain, or any unexpected problems, contact your Primary Care Provider. Call [facility] ([phone]) or report tothe closest Emergency Room. Call 911 if necessary. 06/04/24 0432 Cosigner Signature (if applicable): CC: Dr. Barry Odom MD; Dr. Luis Hay MD ~ Signed [facility]04-26-2025 Radiology Diagnostic study note [facility] Imaging Services [address], [place] [address] Chest 1 View (Portable) MR#: [id number] Acct: [id number] Name: EDUARD LEOS III Rep #: [id number] : 1945 M 79 From: Bill Gifford DO PCP: Dr. Luis Hay MD Status: R EG ER Study:Chest 1 View (Portable) Date of Exam: 06/04/24 Exam# [id number] Ordering Dr: Silverio Cuellar MD PROCEDURE: CHEST 1 VIEW (PORTABLE) 06/04/2024 REASON FOR EXAM: CHEST PAIN TECHNIQUE: Frontal view of the chest. COMPARISON: None. FINDINGS: Cardiomegaly is present. Pulmonary vasculature is within normal limits. No consolidation, pleural effusion, or pneumothorax is present. Left-sided pacemaker is identified. RAD/Chest 1 View (Portable) IMPRESSION: No acute cardiopulmonary process. Reading Location: [facility] CC: Dr. Jeb Cuellar MD; Dr. Luis Hay MD ~ Spinneret Cleaner: Signed [facility]03-20-2025 Evaluation note* Diagnosis Onset Date Resolution Status Admit Date CKD (chronic kidney disease) , stage III chronic April 28, 2024 2:10pm Essential hypertension chronic [facility] 2024 2:10pm Odynophagia chronic April 28, 2 025 2:10pm Type 2 diabetes mellitus chronic April 28, 2024 2:10pm [facility] Work Phone: 1(171) 496-765203-20-2025 Evaluation note* Diagnosis Onset Date Resolution Status Admit Date CKD (chronic kidney disease) , stage III chronic April 28, 2024 2:10pm Essential hypertension chronic [facility] 2024 2:10pm Odynophagia chronic April 28, [...] of cardiac radiofrequency ablation resolved June 3:13pm [email or web address] Work Phone: 1(380) 698-344703-20-2025 Evaluation note* Diagnosis Onset Date Resolution Status Admit Date CKD (chronic kidney disease) , stage III chronic April 28, 2024 2:10pm Essential hypertension chronic [facility] 2024 2:10pm Odynophagia chronic April 28, 025 2:10pm Type 2 diabetes mellitus chronic [...] of cardiac radiofrequency ablation resolved June 3:13pm Dysphagia acute August 04 1:56pm [email or web address] Work Phone: 1(914) 139-541803-20-2025 Evaluation note* Diagnosis Onset Date Resolution Status Admit Date CKD (chronic kidney disease) , stage III chronic April 28, 2024 2:10pm Essential hypertension chronic [facility] 2024 2:10pm Odynophagia chronic April 28, 2 [...] of cardiac radiofrequency ablation resolved June 3:13pm Dysphagia acute August 04 1:56pm Cataract chronic August 18 2:52pm Chronic diarrhea chronic August 2:52pm CKD (chronic kidney disease) , stage III chronic August 18, 2024 2:52pm Insomnia chronic August 18 2:52pm PAF (paroxysmal atrial fibrillation) chronic August 18, 2024 2:52pm Type 2 diabetes mellitus chronic August 18, 2024 2:52pm [facility] Work Phone: 1(518) 289-768112-18-2024 Evaluation note* Diagnosis Onset Date Resolution Status Admit Date Viral syndrome acute January 092023 2:33pm BPH (benign prostatic hyperplasia) chronic January 26, 2 024 2:33pm CKD (chronic kidney disease) , stage III chronic January 26, 2 024 2:33pm Essential hypertension chronic De cember 2023 2:33pm Type 2 diabetes mellitus chronic January 27, 2024 2:33pm CKD (chronic kidney disease) , stage III chronic April 28, 2024 2:10pm Essential hypertension chronic [facility] 2024 2:10pm Odynophagia chronic April 28, 025 2:10pm Type 2 diabetes mellitus chronic April 28, 2024 2:10pm [facility] Work Phone: 1(815) 831-585308-21-2024 [facility]06-27-2022 Miscellaneous Notes* Telephone Encounter - Fanny Covington RN - 08/05/2021 1:07 PM EDT [facility] called in trying to get a refill for Pt. Had to notify them that Pt is no longer with a provider at our facility. They report they took us out of their system as his provider. [facility] NoteHNO ID: [id number] Author: Marie Cuellar PA-C Service: ? Author Type: Physician Parcel Wrapper Type: Progress Notes Filed: 06/13/2021 11:08 AM [...] outside records noted above. Marie Cuellar PA-C [facility] History of Present illness Narrative* Marie [...] outside records noted above. Marie Cuellar PA-C [facility] [place] documented in this encounterMer[facility]22 NoteHNO ID: [id number] Author: Beka Cunningham RN Service: ? Author Type: Registered Nurse Type: Progress Notes Filed: 05/31/2021 11:05 AM Note Text: PRIMARY CARE COORDINATION QUICK NOTE Provider Action/FYI Pt changed to [facility], no longer has [facility] PCP. Removed name from Care Team Tab. Patient identified by name and date . Nathalie Ireland RN May 30, 2021 4:54 [facility]04-21-2022 History of Present illness Narrative* Beka Cunningham RN - 05/30/2021 4:54 PM EDT PRIMARY CARE COORDINATION QUICK NOTE Provider Action/FYI Pt changed to [facility], no longer has [facility] PCP. Removed name from Care Team Tab. Patient identified by name and date . Nathalie Ireland RN May 30, 2021 4:54 PM [facility] [facility] NotePatient Outreach ([facility]) EDUARD LEOS ([id number]) 1945 M Date Time Provider Department 05/30/21 BEKA CUNNINGHAM [facility] During your visit today, we recorded the following information about you: Nathalie Ireland RN 05/31/2021 11:05 AM Signed PRIMARY CARE COORDINATION QUICK NOTE Provider Action/FYI Pt changed to [facility], no longer has [facility] PCP. Removed name [...] once daily. As needed - COMPOUNDED PRESCRIPTION [facility] S/P ablation for INR checks, assessment and eval of VS, HF and coumadin teaching. Eval for PT. Dx; cardiomyopathy, [place], arrhythmia, CAD, anticoagulation. - COMPOUNDED PRESCRIPTION S/P ablation for VT. Pt requires INR, assessment and eval VS, coumadin and HF teaching. Dx: Cardiomyopathy, [place], ventricular arrhythmia, CAD, anticoagulation. - magnesium oxide [...] pain [R10.11] 05/01/2017 Live (more content not included)...[facility]03-28-2022 Miscellaneous Notes* Telephone Encounter - Nidia Geiger MD - 05/06/2021 12:26 PM EDT Patient switched PCP to [facility]. Removed my name as PCP * Telephone Encounter - Lona Jeronimo Ma - 05/03/2021 2:48 PM EDT Appointment cancelled [facility] NotePatient Outreach ([facility]) CHARISSAEDUARD FAN ([id number]) 1945 M Date Time Provider Department 03/29/21 [...] trejo name is Nathalie Ireland RN your Typing Pool Supervisor from Nidia Geiger MD office at the [facility]. I am reaching out today because [...] coumadin teaching. Eval for PT. Dx; cardiomyopathy, [place], arrhythmia, CAD, anticoagulation. - COMPOUNDED PRESCRIPTION S/P ablation for VT. Pt requires INR, assessment and eval VS, coumadin and HF teaching. Dx: Cardiomyopathy, [place], ventricular arrhythmia, CAD, anticoagulation. - magnesium oxide [...] PAIN-JOINT NEC [M25.59] 02 (more content not included)...[facility]02-18-2022 NoteHNO ID: [id number] Author: Beka Cunningham RN Service: ? Author [...] trejo name is Nathalie Ireland RN your Typing Pool Supervisor from Nidia Geiger MD office at the [facility]. I am reaching out today because [...] Nathalie Ireland RN March 29, 2021 10:06 [facility]02-10-2022 NoteHNO ID: [id number] Author: Beka Cunningham RN Service: ? Author Type: Registered Nurse Type: Progress Notes Filed: 03/21/2021 1:49 PM Note Text: INSIGHT CDM ESCALATION Provider Action/FYI: Photo Technologist Questionnaire Triggered call- Pt reported on his Insight Questionnaire he was experiencing any new symptoms related to your chronic condition. 2nd Call to Pt left a message to contact PCP/ OPERATOR [employer] office for new or worsening symptoms or concerns. Message received via: InSight - No contact made with patient Left Message for PatientRenny Dennison my name is Nathalie Ireland RN from the [facility]. I am calling about your responses to our InSight Home Monitoring questionnaire. Sorry I am not able to speak with you. If you have a problem that needs to be addressed by your physician please contact your PCP office?End Outreach Nathalie Ireland RN March 21, 2021 1:42 [facility]02-10-2022 NoteHNO ID: [id number] Author: Beka Cunningham RN Service: ? Author Type: Registered Nurse Type: Progress Notes Filed: 03/21/2021 1:40 PM Note Text: INSIGHT CDM ESCALATION Provider Action/FYI: Photo Technologist Questionnaire Triggered call Pt reported on his Insight Questionnaire experiencing any new symptoms related to your chronic condition Call to Pt left a message. Message received via: InSight - No contact made with patient Left Message for Patient. Jesi my name is Nathalie Ireland RN from the [facility]. I am calling about your responses to our InSight Home Monitoring questionnaire. Sorry I am not able to speak with you. If you have a problem that needs to be addressed by your physician please contact your PCP office?End Outreach Nathalie Ireland RN March 21, 2021 12:21 [facility]02-10-2022 NotePatient Outreach ([facility]) EDUARD LEOS ([id number]) 1945 M Date Time Provider Department 03/21/21 BEKA FAROOQ During your visit today, we recorded the following information about you: Nathalie Ireland RN 03/21/2021 1:40 PM Signed INSIGHT CDM ESCALATION Provider Action/FYI: Photo Technologist Questionnaire Triggered call Pt reported on his Insight Questionnaire experiencing any new symptoms related to your chronic condition Call to Pt left a message. Message received via: InSight - No contact made with patient Left Message for PatientRenny Dennison my name is Nathalie Ireland RN from the [facility]. I am calling about your responses [...] Reason for Visit: Insight Escalation [Other] Cmt: Photo Technologist Questionnaire Triggered call Prescriptions as of 03/21/2021 [...] once daily. As needed - COMPOUNDED PRESCRIPTION [facility] S/P ablation for INR checks, assessment and eval of VS, HF and coumadin teaching. Eval for PT. Dx; cardiomyopathy, [place], arrhythmia, CAD, anticoagulation. - COMPOUNDED PRESCRIPTION S/P ablation for VT. Pt requires INR, assessment and eval VS, coumadin and HF teaching. Dx: Cardiomyopathy, [place], ventricular arrhythmia, CAD, anticoagulation. - magnesium oxide [...] 12/14/2020 Dyspepsia [R10.13] 01/27/2017 (more content not included)...[facility]02-10-2022 NotePatient Outreach ([facility]) EDUARD LEOS ([id number]) 1945 M Date Time Provider Department 03/21/21 BEKA FAROOQ During your visit today, we recorded the following information about you: Nathalie Ireland RN 03/21/2021 1:49 PM Signed INSIGHT CDM ESCALATION Provider Action/FYI: Photo Technologist Questionnaire Triggered call- Pt reported on his Insight Questionnaire he was experiencing any new symptoms related to your chronic condition. 2nd Call to Pt left a message to contact PCP/ [employer] office for new or worsening symptoms or concerns. Message received via: InSight - No contact made with patient Left Message for PatientRenny Dennison my name is Nathalie Ireland RN from the [facility]. I am calling about your responses [...] Reason for Visit: Insight Escalation [Other] Cmt: Photo Technologist Questionnaire Triggered call Prescriptions as of 03/21/2021 [...] once daily. As needed - COMPOUNDED PRESCRIPTION [facility] S/P ablation for INR checks, assessment and eval of VS, HF and coumadin teaching. Eval for PT. Dx; cardiomyopathy, [place], arrhythmia, CAD, anticoagulation. - COMPOUNDED PRESCRIPTION S/P ablation for VT. Pt requires INR, assessment and eval VS, coumadin and HF teaching. Dx: Cardiomyopathy, [place], ventricular arrhythmia, CAD, anticoagulation. - magnesium oxide [...] 10/23/2015 Encounter for monitorin (more content not included)...[facility] 03-07-2021 NotePatient Outreach ([facility]) EDUARD LEOS ([id number]) 1945 Andre Date Time Provider Department 03/07/21 BEKA FAROOQ During your visit today, we recorded the following information about you: Nathalie Ireland RN 03/07/2021 10:49 AM Signed inSight CDM Engagement Provider Action/FYI: Pt reported 02/28/21 on My Chart Photo Technologist Questionnaire: Do you check your blood pressure [...] Leos. This is Nathalie Ireland RN your Typing Pool Supervisor from the [facility]. I am calling to check in with you concerning the MyChart questionnaire you have been receiving from me. I will call you again and am looking forward to speaking with you. (Typing Pool Supervisor enters next day in next patient outreach) [...] once daily. As needed - COMPOUNDED PRESCRIPTION [facility] S/P ablation for INR checks, assessment and eval of VS, HF and coumadin teaching. Eval for PT. Dx; cardiomyopathy, [place], arrhythmia, CAD, anticoagulation. - COMPOUNDED PRESCRIPTION S/P ablation for VT. Pt requires INR, assessment and eval VS, coumadin and HF teaching. Dx: Cardiomyopathy, [place], ventricular arrhythmia, CAD, anticoagulation. - magnesium oxide [...] di*07/10/2015 Paroxysmal atrial fib (more content not included)...[facility] 03-07-2021 NoteHNO ID: [id number] Author: Beka Cunningham RN Service: ? Author Type: Registered Nurse Type: Progress Notes Filed: 03/07/2021 10:49 AM Note Text: inSight CDM Engagement Provider Action/FYI: Pt reported 02/28/21 on My Chart Photo Technologist Questionnaire: Do you check your blood pressure [...] Leos. This is Nathalie Ireland RN your Typing Pool Supervisor from the [facility]. I am calling to check in with you concerning the MyChart questionnaire you have been receiving from me. I will call you again and am looking forward to speaking with you. (Typing Pool Supervisor enters next day in next patient outreach) Nathalie Ireland RN March 07, 2021 10:42 [facility]01-19-2022 NoteHNO ID: [id number] Author: Beka Cunningham RN Service: ? Author Type: Registered Nurse Type: Progress Notes Filed: 02/27/2021 4:23 PM Note Text: [facility] TELEPHONIC OUTREACH Provider Action/FYI: Call to Pt to verify symptom status or needs. Contact made with patient: No - Left message Jesi my name is Nathalie Ireland RN your Typing Pool Supervisor from the [facility] I am calling today for your bi-weekly check in. I am sorry I missed your call. I will reach out to you again tomorrow. (if the third call I will reach out to you again next week) Enter next patient outreach date for the following business day using the Track Pt Outreach. End outreach. Nathalie Ireland RN February 27, 2021 4:20 [facility]01-19-2022 NotePatient Outreach ([facility]) EDUARD LEOS ([id number]) 1945 Date Time Provider Department 02/27/21 BEKA FAROOQ During your visit today, we recorded the following information about you: Nathalie Ireland RN 02/27/2021 4:23 PM Signed [facility] TELEPHONIC OUTREACH Provider Action/FYI: Call to Pt to verify symptom status or needs. Contact made with patient: No - Left message Jesi my name is Nathalie Ireland RN your Typing Pool Supervisor from the [facility] I am calling today for your [...] [Other] Cmt: CDM Outreach Prescriptions as of 02/27/2021 - cyclobenzaprine [...] coumadin teaching. Eval for PT. Dx; cardiomyopathy, [place], arrhythmia, CAD, anticoagulation. - COMPOUNDED PRESCRIPTION S/P ablation for VT. Pt requires INR, assessment and eval VS, coumadin and HF teaching. Dx: Cardiomyopathy, [place], ventricular arrhythmia, CAD, anticoagulation. - magnesium oxide [...] 01/27/2017 Unilateral inguinal h (more content not included)...[facility] 2021 NoteHNO ID: [id number] Author: Beka Cunningham RN Service: ? Author Type: Registered Nurse Type: Progress Notes Filed: 2021 2:37 PM Note Text: inSight CDM Engagement Provider Action/FYI: Call to Pt left vm to verify any new or worsening symptoms or concerns. Contact Made with Patient: No, second attempt, left message. Jesi Leos. This is Nathalie Ireland RN your Typing Pool Supervisor from the [facility]. I am calling to check in with you concerning the MyChart questionnaire you have been receiving from me. I will call you again next week and am looking forward to speaking with you. (Typing Pool Supervisor enters next week's date in next patient outreach) Nathalie Ireland RN 2021 2:35 [facility]01-10-2022 NoteHNO ID: [id number] Author: Beka Cunningham RN Service: ? Author Type: Registered Nurse Type: Progress Notes Filed: 2021 2:37 PM Note Text: inSight CDM Engagement Provider Action/FYI: Call to Pt left vm to verify any new or worsening symptoms or concerns. Contact Made with Patient: No, first attempt, left message. Jesi Leos. This is Nathalie Ireland RN your Typing Pool Supervisor from the [facility]. I am calling to check in with you concerning the MyChart questionnaire you have been receiving from me. I will call you again tomorrow and am looking forward to speaking with you. (Typing Pool Supervisor enters next day in next patient outreach) Nathalie Ireland RN February 18, 2021 4:25 [facility]01-10-2022 NotePatient Outreach ([facility]) EDUARD LEOS ([id number]) 1945 M Date Time Provider Department 02/18/21 BEKA FAROOQ During your visit today, we recorded the following information about you: Nathalie Ireland RN 2021 2:37 PM Signed [facility] Engagement Provider Action/FYI: Call to Pt left vm to verify any new or worsening symptoms or concerns. Contact Made with Patient: No, first attempt, left message. Jesi Leos. This is Nathalie Ireland RN your Typing Pool Supervisor from the [facility]. I am calling to check in with you concerning the MyChart questionnaire you have been receiving from me. I will call you again tomorrow and am looking forward to speaking with you. (Typing Pool Supervisor enters next day in next patient outreach) Nathalie Ireland RN February 18, 2021 4:25 PM Nathalie Ireland RN 2021 2:37 PM Signed [facility] Engagement Provider Action/FYI: Call to Pt left vm to verify any new or worsening symptoms or concerns. Contact Made with Patient: No, second attempt, left message. Jesi Leos. This is Nathalie Ireland RN your Typing Pool Supervisor from the [facility]. I am calling to check in with you concerning the MyChart questionnaire you have been receiving from me. I will call you again next week and am looking forward to speaking with you. (Typing Pool Supervisor enters next week's date in next patient [...] coumadin teaching. Eval for PT. Dx; cardiomyopathy, [place], arrhythmia, CAD, anticoagulation. - COMPOUNDED PRESCRIPTION [facility] S/P ablation for VT. Pt requires INR, assessment and eval VS, coumadin and HF teaching. Dx: Cardiomyopathy, [place], ventricular arrhythmia, CAD, anticoagulation. - magnesium oxide [...] I* S/P coronary art (more content not included)...[facility] 12-18-2020 NoteHNO ID: [id number] Author: Nidia Geiger MD Service: ? Author Type: Physician Type: Progress Notes Filed: 02/18/2021 12:30 AM Note Text: This note was created using NoteWriter. Subjective Eduard Leos is a 75 year [...] Brain Tumor 02/26/2009 benign [facility] - Coronary atherosclerosis of unspecified type of vessel, mi'kmaq or graft coumadin managed by cardiology (Dr. [...] mostly using PM ) - COMPOUNDED PRESCRIPTION [facility] S/P ablation for INR checks, assessment and eval of VS, HF and coumadin teaching. Eval for PT. Dx; cardiomyopathy, [place], arrhythmia, CAD, anticoagulation. - COMPOUNDED PRESCRIPTION S/P ablation for VT. Pt requires INR, assessment and eval VS, coumadin and HF teaching. Dx: Cardiomyopathy, [place], ventricular arrhythmia, CAD, anticoagulation. No current facility-administered [...] Normal breath sounds. Musculosk (more content not included)...[facility]09-17-2021 NoteHNO ID: [id number] Author: Irma López APRN.[employer] Service: ? Author Type: Nurse Practitioner Type: Progress Notes Filed: 10/26/2020 2:23 PM Note Text: This is a 75 year old male who presents today with: Patient presents with: Follow Up: [facility] HISTORY OF PRESENT ILLNESS: Eduard Leos is a 75 year old male. Patient presents with: Follow Up: [facility] Here in the office for hospital follow up. HOSPITAL/ER FOLLOW UP: Reason for visit: Lumbar back pain Which facility: [facility] Date of visit: 10/07/2020 Diagnosis: Lumbar strain. [...] Brain Tumor 02/26/2009 benign per evaluation [facility] - Coronary atherosclerosis of unspecified type of vessel, mi'kmaq or graft coumadin managed by cardiology (Dr. [...] for INR checks, assessmen (more content not included)...[facility]09-09-2021 NotePatient Outreach ([facility]) EDUARD LEOS ([id number]) 1945 Andre Date Time Provider Department 10/18/20 BEKA FAROOQ During your visit today, we recorded the following information about you: Nathalie Ireland RN 10/18/2020 12:53 PM Signed INSIGHT CDM ESCALATION Provider Action/FYI: Photo Technologist Questionnaire Triggered call Spk with Pt who [...] has an 10/26/20 Appt with Irma López APRN.[employer] for 10/07/20[facility] ED follow up Pt denies needs and concerns Message received via: InSight - Yes contact made with patient ACTION TAKEN: Based on wheel adjuster, the following disposition is advised: SYMPTOMS PRESENT [...] Date Reviewed: 10/02/2020 Reviewed by: Sonu Jimenez APRN.[employer]ATOR [employer] - Fully Assessed Reason for Visit: Insight Escalation [Other] Cmt: Photo Technologist Questionnaire Triggered call Prescriptions as of 10/18/2020 [...] once daily. As needed - COMPOUNDED PRESCRIPTION [facility] S/P ablation for INR checks, assessment and eval of VS, HF and coumadin teaching. Eval for PT. Dx; cardiomyopathy, [place], arrhythmia, CAD, anticoagulation. - COMPOUNDED PRESCRIPTION S/P ablation for VT. Pt requires INR, assessment and eval VS, coumadin and HF teaching. Dx: Cardiomyopathy, [place], ventricular arrhythmia, CAD, anticoagulation. - magnesium oxide [...] therap*10/23/2015 Dyspepsia [R10.13] 01/09 (more content not included)...[facility] 10-18-2020 NoteHNO ID: [id number] Author: Beka Cunningham RN Service: ? Author Type: Registered Nurse Type: Progress Notes Filed: 10/18/2020 12:53 PM Note Text: INSIGHT CDM ESCALATION Provider Action/FYI: Photo Technologist Questionnaire Triggered call Spk with Pt who [...] has an 10/26/20 Appt with Irma López APRN.[employer] for 10/07/20[facility] ED follow up Pt denies needs and concerns Message received via: InSight - Yes contact made with patient ACTION TAKEN: Based on wheel adjuster, the following disposition is advised: SYMPTOMS PRESENT NOT SEVERE: No action required - Continue outreach / Phone Call Nathalie Ireland RN October 18, 2020 11:38 [facility]09-02-2021 NoteHNO ID: [id number] Author: Beka Cunningham RN Service: ? Author Type: Registered Nurse Type: Progress Notes Filed: 10/11/2020 4:23 PM Note Text: InSight CDM Enrollment Provider Action/FYI: Auto Enrolled via [place] for CDM Program Patient referred by: [facility] Ian Contact made with patient: Patient not outreached at this time. Closing: Patient accepts respiratory care instructor Thank you for your time today. I am excited to work together in managing your health! You will receive information on next steps through your GooodJob account, and I will check back within a few weeks to ensure you have all that you need to use the program successfully. (Place name in care team and assign GooodJob Photo Technologist questionnaire) END OUTREACH Nathalie Ireland RN October 11, 2020 4:02 [facility]09-02-2021 NotePatient Outreach ([facility]) EDUARD LEOS ([id number]) 1945 M Date Time Provider Department 10/11/20 BEKA FAROOQ During your visit today, we recorded the following information about you: Nathalie Ireland RN 10/11/2020 4:23 PM Signed InSight CDM Enrollment Provider Action/FYI: Auto Enrolled via [place] for CDM Program Patient referred by: [facility] Ian Contact made with patient: Patient not outreached at this time. Closing: Patient accepts respiratory care instructor Thank you for your time today. I am excited to work together in managing your health! You will receive information on next steps through your GooodJob account, and I will check back within a few weeks to ensure you have all that you need to use the program successfully. (Place name in care team and assign GooodJob Photo Technologist questionnaire) END OUTREACH Nathalie Ireland RN October 11, 2020 4:02 PM Allergies As of Date: 10/11/2020 Noted Allergy Reaction AMIODARONE 02/17/2018 14 - Other: See Comments Comments: Pulmonary fibrosis GEMFIBROZIL 02/26/2009 5 - Intolerance Comments: Upset stomach; constipation NEXIUM (ESOMEPRAZOLE MAGNESIUM) 01/26/2017 8 - GI Upset Date Reviewed: 10/02/2020 Reviewed by: Sonu Jimenez APRN.OPERATOR [employer] - Fully Assessed Reason for Visit: Community [...] once daily. As needed - COMPOUNDED PRESCRIPTION [facility] S/P ablation for INR checks, assessment and eval of VS, HF and coumadin teaching. Eval for PT. Dx; cardiomyopathy, [place], arrhythmia, CAD, anticoagulation. - COMPOUNDED PRESCRIPTION S/P ablation for VT. Pt requires INR, assessment and eval VS, coumadin and HF teaching. Dx: Cardiomyopathy, [place], ventricular arrhythmia, CAD, anticoagulation. - magnesium oxide [...] Nausea [R11.0] 01/27/2017 Epigastr (more content not included)...[facility]08-24-2021 Note HNO ID: [id number] Author: Sonu Jimenez APRN.[employer]ATOR [employer] Service: ? Author Type: Nurse Practitioner Type: [...] Brain Tumor 02/26/2009 benign per [facility] - Coronary atherosclerosis of unspecified type of vessel, mi'kmaq or graft coumadin managed by cardiology (Dr. [...] mouth once daily. As needed COMPOUNDED PRESCRIPTION [facility] S/P ablation for INR checks, assessment and eval of VS, HF and coumadin teaching. Eval for PT.Dx; cardiomyopathy, [place], arrhythmia, CAD, anticoagulation. COMPOUNDED PRESCRIPTION S/P ablation for VT. Pt requires INR, assessment and eval VS, coumadin and HF teaching. Dx: Cardiomyopathy, [place], ventricular arrhythmia, CAD, anticoagulation. magnesium oxide (MAG-OX) [...] - Tobacco comment: P (more content not included)...[facility] 08-23-2020 NoteHNO ID: [id number] Author: Beka Cunningham RN Service: ? Author Type: Registered Nurse Type: Progress Notes Filed: 08/23/2020 11:14 AM Note Text: InSight CDM Enrollment Provider Action/FYI: 2nd Call to Pt left a message related to Disease Mgt Program Patient referred by: [facility] Ian Contact made with patient: No - 2nd attempt to reach patient, left another message: Hi my name is Nathalie Ireland RN and I am calling from the [facility] on behalf of your PCP, Nidia Geiger MD. We are excited to share with you a new program to help you manage your health. Please call me back at [phone]. I hope you can take the time to speak with me. (Keep encounter open for additional two business days in case patient calls back. Close encounter if no response by end of second business day) Closing: Could not reach the patient after two attempted outreaches. Typing Pool Supervisor to retry patient in one week. END OUTREACH Nathalie Ireland RN August 23, 2020 11:05 [facility]07-14-2021 NoteHNO ID: [id number] Author: Beka Cunningham RN Service: ? Author Type: Registered Nurse Type: Progress Notes Filed: 08/23/2020 11:14 AM Note Text: InSight CDM Enrollment Provider Action/FYI: Call to Pt left a message related to Disease Mgt Program Patient referred by: [facility] Ian Contact made with patient: No - Left Message: Hi my name is Nathalie Ireland RN and I am calling from the [facility] on behalf of your PCP, Nidia Geiger MD. We are excited to share with you a new program to help you manage your health. Please call me back at [phone] between the hours of 8am-5pm Thursday-Thursday. You will receive another phone call from me within the next two business days. I hope you can take the time to speak with me. (Keep encounter open and attempt 2nd outreach in two business days from today) END OUTREACH Nathalie Ireland RN August 22, 2020 2:51 [facility]07-14-2021 NotePatient Outreach ([facility]) EDUARD LEOS ([id number]) 1945 M Date Time Provider Department 08/22/20 BEKA FAROOQ During your visit today, we recorded the following information about you: Nathalie Ireland RN 08/23/2020 11:14 AM Signed InSight [facility] Enrollment Provider Action/FYI: Call to Pt left a message related to Disease Mgt Program Patient referred by: [facility] Ian Contact made with patient: No - Left Message: Hi my name is Nathalie Ireland RN and I am calling from the [facility] on behalf of your PCP, Nidia Geiger MD. We are excited to share with you a new program to help you manage your health. Please call me back at [phone] between the hours of 8am-5pm Thursday-Thursday. You will receive another phone call from me within the next two business days. I hope you can take the time to speak with me. (Keep encounter open and attempt 2nd outreach in two business days from today) END OUTREACH Nathalie Ireland RN August 22, 2020 2:51 PM Nathalie Ireland RN 08/23/2020 11:14 AM Signed InSight [facility] Enrollment Provider Action/FYI: 2nd Call to Pt left a message related to Disease Mgt Program Patient referred by: [facility] Ian Contact made with patient: No - 2nd attempt to reach patient, left another message: Hi my name is Nathalie Ireland RN and I am calling from the [facility] on behalf of your PCP, Nidia Geiger MD. We are excited to share with you a new program to help you manage your health. Please call me back at [phone]. I hope you can take the time to speak with me. (Keep encounter open for additional two business days in case patient calls back. Close encounter if no response by end of second business day) Closing: Could not reach the patient after two attempted outreaches. Typing Pool Supervisor to retry patient in one week. END OUTREACH Nathalie Ireland RN August 23, 2020 11:05 AM Allergies As of Date: 08/22/2020 Noted Allergy Reaction AMIODARONE 02/17/2018 14 - Other: See Comments Comments: Pulmonary fibrosis GEMFIBROZIL 02/26/2009 5 - Intolerance Comments: Upset stomach; constipation NEXIUM (ESOMEPRAZOLE MAGNESIUM) 01/26/2017 8 - GI Upset Date Reviewed: 07/05/2020 Reviewed by: Eugenie Mccollum APRN.ELECTRICAL MACHINE BUILDER - Fully Assessed Reason for Visit: Community Monitoring Outreach [Other] Cmt: CHF Primary Visit Diagnosis:Dilated cardiomyopathy (HCC) [I42.0] Order(s):CONSULT TO PRIMARY CARE COORDINATION [facility] [[id number]] Order #: [id number]: 1 Prescriptions as of 08/23/2020 - traZODone [...] once daily. As needed - COMPOUNDED PRESCRIPTION [facility] S/P ablation for INR checks, assessment and eval of VS, HF and coumadin teaching. Eval for PT. Dx; cardiomyopathy, [place], arrhythmia, CAD, anticoagulation. - COMPOUNDED PRESCRIPTION S/P ablation for VT. Pt requires INR, assessment and eval VS, coumadin and HF teaching. Dx: Cardiomyopathy, [place], ventricular arrhythmia, CAD, anticoagulation. - magnesium oxide (MAG-OX) 400 mg tablet 1 tablet twice weekly - aspirin, enteric coated (ECOTRIN LOW STRENGTH) 81 mg EC tablet Take 1 tablet by mouth once daily. Meds Comments as of 06/04/2012: Problem List As Of Date 08/22/2020 Noted Resolved LUMBAGO [M54.5] 10/15/2005 SCIATICA [M54.30] 10/15/2005 CARPAL TUNNEL SYNDROME [G56.00] 01/09/2006 (more content not included)...[facility]04-28-2021 History of Present illness Narrative* Monico Adams RT(R) - 06/06/2020 5:10 PM EDT Radiology [...] 06, 2020 5:16 PM [facility] of Past illness Narrative* Problem Noted Date Resolved Date Dyspepsia 01/27/2017 12/14/2020 Overview: Added automatically from request for surgery [id number] Nausea 01/27/2017 12/14/2020 Overview: Added automatically from request for surgery [id number] Encounter for monitoring anti-arrhythmic therapy 10/23/2015 12/14/2020 VT (ventricular tachycardia) 07/24/201506/2020 Impaired fasting glucose 02/26/2009 022 Brain tumor 02/26/2009 12/14/2020 Overview: benign [facility] Carpal tunnel syndrome 01/09/2006 8 Lateral epicondylitis of elbow 01/09/2006 0 04/05/2007 documented as of this encounter (statuses as of 05/06/2021) [facility]12-19-2017 History of Past illness Narrative* Problem Noted Date Resolved Date Dyspepsia 01/27/2017 12/14/2020 Overview: Added automatically from request for surgery [id number] Nausea 01/27/2017 12/14/2020 Overview: Added automatically from request for surgery [id number] Encounter for monitoring anti-arrhythmic therapy 10/23/2015 12/14/2020 VT (ventricular tachycardia) 07/24/201506/2020 Impaired fasting glucose 02/26/2009 022 Brain tumor 02/26/2009 12/14/2020 Overview: benign per evaluation at [facility] Carpal tunnel syndrome 01/09/2006 8 Lateral epicondylitis of elbow 01/09/2006 0 04/05/2007 documented as of this encounter (statuses as of 05/06/2021) [facility]12-19-2017 History of Past illness Narrative* Problem Noted Date Resolved Date Dyspepsia 01/27/2017 12/14/2020 Overview: Added automatically from request for surgery [id number] Nausea 01/27/2017 12/14/2020 Overview: Added automatically from request for surgery [id number] Encounter for monitoring anti-arrhythmic therapy 10/23/2015 12/14/2020 VT (ventricular tachycardia) 07/24/201506/2020 Impaired fasting glucose 02/26/2009 022 Brain tumor 02/26/2009 12/14/2020 Overview: benign per evaluation at [facility] Carpal tunnel syndrome 01/09/2006 8 Lateral epicondylitis of elbow 01/09/2006 0 04/05/2007 documented as of this encounter (statuses as of 05/31/2021) [facility]12-19-2017 History of Past illness Narrative* Problem Noted Date Resolved Date Dyspepsia 01/27/2017 12/14/2020 Overview: Added automatically from request for surgery [id number] Nausea 01/27/2017 12/14/2020 Overview: Added automatically from request for surgery [id number] Encounter for monitoring anti-arrhythmic therapy 10/23/2015 12/14/2020 VT (ventricular tachycardia) 07/24/201506/2020 Impaired fasting glucose 02/26/2009 022 Brain tumor 02/26/2009 12/14/2020 Overview: benign per evaluation at [facility] Carpal tunnel syndrome 01/09/2006 8 Lateral epicondylitis of elbow 01/09/2006 0 04/05/2007 documented as of this encounter (statuses as of 06/13/2021) [facility]12-19-2017 History of Past illness Narrative* Problem Noted Date Resolved Date Dyspepsia 01/27/2017 12/14/2020 Overview: Added automatically from request for surgery [id number] Nausea 01/27/2017 12/14/2020 Overview: Added automatically from request for surgery [id number] Encounter for monitoring anti-arrhythmic therapy 10/23/2015 12/14/2020 VT (ventricular tachycardia) 07/24/201506/2020 Impaired fasting glucose 02/26/2009 022 Brain tumor 02/26/2009 12/14/2020 Overview: benign per evaluation at [facility] Carpal tunnel syndrome 01/09/2006 8 Lateral epicondylitis of elbow 01/09/2006 0 04/05/2007 documented as of this encounter (statuses as of 08/05/2021) 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 PAF (paroxysmal atrial fibrillation) chronic Presence of implantable card ioverter-defibrillator (ICD) Jun, 2013 chronic BPH (benign prostatic hyperplasia) chronic Chronic diarrhea chronic Chronic systolic (congestive) heart failure chronic PAF (paroxysmal atrial fibrillation) chronic Weight loss, non-intentional chronic [facility] Work Phone: 1(899) 675-275405-01-2014 Evaluation note* Diagnosis Onset Date Resolution Status Chronic systolic (congestive) heart failure chronic Ischemic cardiomyopathy 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 PAF (paroxysmal atrial fibrillation) chronic Presence of implantable card ioverter-defibrillator (ICD) Jun, 2013 chronic BPH (benign prostatic hyperplasia) chronic Chronic diarrhea chronic Chronic systolic (congestive) heart failure chronic PAF (paroxysmal atrial fibrillation) chronic Weight loss, non-intentional chronic Chronic systolic (congestive) heart failure chronic Ischemic cardiomyopathy 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 PAF (paroxysmal atrial fibrillation) chronic Presence of implantable card ioverter-defibrillator (ICD) Jun, 2013 chronic Sustained VT (ventricular tachycardia) chronic History of cardiac radiofrequency ablation resolved Atherosclerotic heart diseas e of [place] coronary artery without angina pectoris chronic Chronic systolic (congestive) heart failure chronic Essential hypertension chron ic Ischemic cardiomyopathy 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 Mixed hyperlipidemia chronic PAF (paroxysmal atrial fibrillation) chronic Presence of implantable card ioverter-defibrillator (ICD) Jun, 2013 chronic Presence of stent in coronary artery February, chronic History of cardiac radiofrequency ablation resolved Type 2 diabetes mellitus acu te CKD (chronic kidney disease), stage III chronic Essential hypertension chron ic Dyspnea on exertion acute 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 Chronic systolic (congestive) heart failure chronic Essential hypertension chron ic Ischemic cardiomyopathy 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 Mixed hyperlipidemia chronic PAF (paroxysmal atrial fibrillation) chronic Presence of implantable card ioverter-defibrillator (ICD) Jun, 2013 chronic Presence of stent in coronary artery February, chronic History of cardiac radiofrequency ablation resolved Chronic systolic (congestive) heart failure chronic Ischemic cardiomyopathy 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 PAF (paroxysmal atrial fibrillation) chronic Presence of implantable card ioverter-defibrillator (ICD) Jun, 2013 chronic Nicotine dependence, cigarettes, in remission acute Nocturnal hypoxia acute [facility] Work Phone: 1(262) 736-319205-01-2014 Evaluation note* Diagnosis Onset Date Resolution Status Chronic systolic (congestive) heart failure chronic Ischemic cardiomyopathy 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 PAF (paroxysmal atrial fibrillation) chronic Presence of implantable card ioverter-defibrillator (ICD) Jun, 2013 chronic Sustained VT (ventricular tachycardia) chronic History of cardiac radiofrequency ablation resolved Atherosclerotic heart diseas e of [place] coronary artery without angina pectoris chronic Chronic systolic (congestive) heart failure chronic Essential hypertension chron ic Ischemic cardiomyopathy 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 Mixed hyperlipidemia chronic PAF (paroxysmal atrial fibrillation) chronic Presence of implantable card ioverter-defibrillator (ICD) Jun, 2013 chronic Presence of stent in coronary artery February, chronic History of cardiac radiofrequency ablation resolved CKD (chronic kidney disease), stage III chronic Essential hypertension chron ic Type 2 diabetes mellitus chr onic Dyspnea on exertion acute 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 Chronic systolic (congestive) heart failure chronic Essential hypertension chron ic Ischemic cardiomyopathy 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 Mixed hyperlipidemia chronic PAF (paroxysmal atrial fibrillation) chronic Presence of implantable card ioverter-defibrillator (ICD) Jun, 2013 chronic Presence of stent in coronary artery February, chronic History of cardiac radiofrequency ablation resolved Chronic systolic (congestive) heart failure chronic Ischemic cardiomyopathy 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 PAF (paroxysmal atrial fibrillation) chronic Presence of implantable card ioverter-defibrillator (ICD) Jun, 2013 chronic Nicotine dependence, cigarettes, in remission acute Nocturnal hypoxia acute CKD (chronic kidney disease), stage III chronic Essential hypertension chron ic Type 2 diabetes mellitus chr onic Chronic systolic (congestive) heart failure chronic Ischemic cardiomyopathy 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 PAF (paroxysmal atrial fibrillation) chronic Presence of implantable card ioverter-defibrillator (ICD) Jun, 2013 chronic Sustained VT (ventricular tachycardia) chronic History of cardiac radiofrequency ablation resolved Chronic systolic (congestive) heart failure chronic Ischemic cardiomyopathy 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 PAF (paroxysmal atrial fibrillation) chronic Presence of implantable card ioverter-defibrillator (ICD) Jun, 2013 chronic Sustained VT (ventricular tachycardia) chronic History of cardiac radiofrequency ablation resolved Dyspnea on exertion acute 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 Chronic systolic (congestive) heart failure chronic Essential hypertension chron ic Ischemic cardiomyopathy paving bed maker ipeter Mixed hyperlipidemia chronic PAF (paroxysmal atrial fibrillation) chronic Presence of implantable card ioverter-defibrillator (ICD) Jun, 2013 chronic Presence of stent in coronary artery February, chronic History of cardiac radiofrequency ablation resolved [facility] Work Phone: 1(527) 279-434905-01-2014 Evaluation note* Diagnosis Onset Date Resolution Status Chronic systolic (congestive) heart failure chronic Ischemic cardiomyopathy 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 PAF (paroxysmal atrial fibrillation) chronic Presence of implantable card ioverter-defibrillator (ICD) Jun, 2013 chronic Sustained VT (ventricular tachycardia) chronic History of cardiac radiofrequency ablation resolved Chronic systolic (congestive) heart failure chronic Ischemic cardiomyopathy 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 PAF (paroxysmal atrial fibrillation) chronic Presence of implantable card ioverter-defibrillator (ICD) Jun, 2013 chronic Sustained VT (ventricular tachycardia) chronic History of cardiac radiofrequency ablation resolved Flu vaccine need acute Essential hypertension chron ic Type 2 diabetes mellitus chr onic Dyspnea on exertion acute 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 Chronic systolic (congestive) heart failure chronic Essential hypertension chron ic Ischemic cardiomyopathy 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 Mixed hyperlipidemia chronic PAF (paroxysmal atrial fibrillation) chronic Presence of implantable card ioverter-defibrillator (ICD) Jun, 2013 chronic Presence of stent in coronary artery February, chronic History of cardiac radiofrequency ablation resolved Chronic systolic (congestive) heart failure chronic PAF (paroxysmal atrial fibrillation) chronic Presence of implantable card ioverter-defibrillator (ICD) Jun, 2013 chronic Sustained VT (ventricular tachycardia) chronic History of cardiac radiofrequency ablation resolved [facility] Work Phone: 1(645) 312-264205-01-2014 Evaluation note* Diagnosis Onset Date Resolution Status Chronic systolic (congestive) heart failure chronic Ischemic cardiomyopathy 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 PAF (paroxysmal atrial fibrillation) chronic Presence of implantable card ioverter-defibrillator (ICD) Jun, 2013 chronic Sustained VT (ventricular tachycardia) chronic History of cardiac radiofrequency ablation resolved Flu vaccine need acute Essential hypertension chron ic Type 2 diabetes mellitus chr onic Dyspnea on exertion acute 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 Chronic systolic (congestive) heart failure chronic Essential hypertension chron ic Ischemic cardiomyopathy 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 Mixed hyperlipidemia chronic PAF (paroxysmal atrial [...] chronic Type 2 diabetes mellitus chr onic [facility] Work Phone: 1(865) 667-927205-01-2014 Evaluation note* Diagnosis Onset Date Resolution Status [...] chronic Essential hypertension chron ic Ischemic cardiomyopathy 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 Mixed hyperlipidemia chronic PAF (paroxysmal atrial fibrillation) chronic Presence of implantable card ioverter-defibrillator (ICD) Jun, 2013 chronic Presence of stent in coronary artery February, chronic History of cardiac radiofrequency ablation resolved [facility] Work Phone: Discharge summary Author Jeb Cuellar [facility] Note Date/Time June 04, 2024 4:3 2am [facility] Medical Records Department [address] [place] [address] Emergency Department Summary 06/04/24 MR#: [id number] Acct: [id number] Name: EDUARD LEOS III Rep #: [id number] : [id number] 79 From: Jeb Cuellar MD [...] tonight. His device is a [facility] Medical History Odynophagia Viral syndrome Hearing difficulty Hemorrhoids Hypersomnolence IVON (obstructive sleep apnea) Heart failure with reduced ejection fraction Flu vaccine need CKD (chronic kidney disease), stage III Type 2 diabetes mellitus Hyperglycemia Chronic diarrhea BPH (benign prostatic hyperplasia) Weight loss, non-intentional Atrial fibrillation long-term (current) use of anticoagulants Presence of stent in coronary artery (~02/21/13) Mixed hyperlipidemia CVA (cerebral vascular accident) Chronic systolic (congestive) heart failure Ischemic cardiomyopathy 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 Essential hypertension [...] hydrocortisone 2.5 % topical cream 1 applic [place] BID PRN PRN hemorrhoids 06/04/24 Unknown History [...] second troponin, and we also queried his [facility] AICD. I reviewed this report, and I spoke with the hemodialysis technician for [facility] who reviewed it as well. The [...] The ventricular response is irregular, therefore the hemodialysis technician states this is all consistent with [...] metoprolol, and has an appointment with his glass designer after the weekend on Thursday, I am [...] (Auto) 46.9 L Lymph % (Auto) 40.9 [place] % (Auto) 8.9 Eos % (Auto) 2.4 [...] IMPRESSION: No acute cardiopulmonary process. Reading Location: [facility] Rhythm Strip Rhythm Strip: Sinus Rhythm Rate: 80 Ectopy: PVC(s) EKG Initial EKG: Attestation: I personally reviewed and interpreted this EKG as follows: Interpretation: Sinus Rhythm (With occasional atrial pacing and occasionalPVCs), No Acute Injury Pattern and LAFB Prior EKG tracings: available for review Prior: Unchanged Management Discussion w/another healthcare provider: Re[facility] ([facility] AICD/pacer hemodialysis technician) Discharge Plan Triage Chief Complaint: Chest [...] % cream with perineal applicator 1 applic [place] BID PRN PRN (Reason: hemorrhoids) furosemide 20 [...] [Med Staff - Active Staff] - Keep [facility] appointment Activity Restrictions/Additional Instructions: Your INR today is 1.4, a little low. Take an extra half tablet of warfarin at your next dose; if your next dose is half of a pill, then just take a single pill. Print Language: Maldivian Disposition Disposition: Home, Self Care What to do if you have Problems For any increased pain, shortness of breath, bleeding, nausea or vomiting, chestpain, or any unexpected problems, contact your Primary Care Provider. Call [facility] ([phone]) or report to the closest Emergency Room. Call 911 if necessary. 06/04/24 0432 <Electronically signed by Jeb Cuellar MD> Cosigner Signature (if applicable): CC: Dr. Barry Odom MD; Dr. Luis Hay MD ~ Signed [facility] Work Phone: Evaluation note* Diagnosis Amiodarone pulmonary toxicity- Primary Respiratory conditions due to other specified external agents Dyspnea and respiratory abnormalities Other dyspnea and respiratory abnormality documented [facility] Diagnosis Onset Date Resolution Status BPH (benign prostatic hyperplasia) chronic Chronic diarrhea chronic Chronic systolic (congestive) heart failure chronic PAF (paroxysmal atrial fibrillation) chronic Weight loss, non-intentional chronic Chronic systolic (congestive) heart failure chronic Ischemic cardiomyopathy 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 PAF (paroxysmal atrial fibrillation) chronic Presence of implantable card ioverter-defibrillator (ICD) Jun, 2013 chronic Sustained VT (ventricular tachycardia) chronic History of cardiac radiofrequency ablation resolved Atherosclerotic heart diseas e of [place] coronary artery without angina pectoris chronic Chronic systolic (congestive) heart failure chronic Essential hypertension chron ic Ischemic cardiomyopathy 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 Mixed hyperlipidemia chronic PAF (paroxysmal atrial fibrillation) chronic Presence of implantable card ioverter-defibrillator (ICD) Jun, 2013 chronic Presence of stent in coronary artery February, chronic History of cardiac radiofrequency ablation resolved CKD (chronic kidney disease), stage III chronic Essential hypertension chron ic Type 2 diabetes mellitus chr onic Dyspnea on exertion acute 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 Chronic systolic (congestive) heart failure chronic Essential hypertension chron ic Ischemic cardiomyopathy 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 Mixed hyperlipidemia chronic PAF (paroxysmal atrial fibrillation) chronic Presence of implantable card ioverter-defibrillator (ICD) Jun, 2013 chronic Presence of stent in coronary artery February, chronic History of cardiac radiofrequency ablation resolved Chronic systolic (congestive) heart failure chronic Ischemic cardiomyopathy 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 PAF (paroxysmal atrial fibrillation) chronic Presence of implantable card ioverter-defibrillator (ICD) Jun, 2013 chronic Nicotine dependence, cigarettes, in remission acute Nocturnal hypoxia acute CKD (chronic kidney disease), stage III chronic Essential hypertension chron ic Type 2 diabetes mellitus chr onic Chronic systolic (congestive) heart failure chronic Ischemic cardiomyopathy 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 PAF (paroxysmal atrial fibrillation) chronic Presence of implantable card ioverter-defibrillator (ICD) Jun, 2013 chronic Sustained VT (ventricular tachycardia) chronic History of cardiac radiofrequency ablation resolved Chronic systolic (congestive) heart failure chronic Ischemic cardiomyopathy 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 PAF (paroxysmal atrial fibrillation) chronic Presence of implantable card ioverter-defibrillator (ICD) Jun, 2013 chronic Sustained VT (ventricular tachycardia) chronic History of cardiac radiofrequency ablation resolved Dyspnea on exertion acute 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 Chronic systolic (congestive) heart failure chronic Essential hypertension chron ic Ischemic cardiomyopathy 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 Mixed hyperlipidemia chronic PAF (paroxysmal atrial fibrillation) chronic Presence of implantable card ioverter-defibrillator (ICD) Jun, 2013 chronic Presence of stent in coronary artery February, chronic History of cardiac radiofrequency ablation resolved [facility] Work Phone: Evaluation note* Diagnosis Onset Date Resolution Status Dyspnea on exertion acute 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 Chronic systolic (congestive) heart failure chronic Essential hypertension chron ic Ischemic cardiomyopathy 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 Mixed hyperlipidemia chronic PAF (paroxysmal atrial fibrillation) chronic Presence of implantable card ioverter-defibrillator (ICD) Jun, 2013 chronic Presence of stent in coronary artery February, chronic History of cardiac radiofrequency ablation resolved Chronic systolic (congestive) heart failure chronic Ischemic cardiomyopathy 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 PAF (paroxysmal atrial fibrillation) chronic Presence of implantable card ioverter-defibrillator (ICD) Jun, 2013 chronic Nicotine dependence, cigarettes, in remission acute Nocturnal hypoxia acute CKD (chronic kidney disease), stage III chronic Essential hypertension chron ic Type 2 diabetes mellitus chr onic Chronic systolic (congestive) heart failure chronic Ischemic cardiomyopathy 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 PAF (paroxysmal atrial fibrillation) chronic Presence of implantable card ioverter-defibrillator (ICD) Jun, 2013 chronic Sustained VT (ventricular tachycardia) chronic History of cardiac radiofrequency ablation resolved Chronic systolic (congestive) heart failure chronic Ischemic cardiomyopathy 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 PAF (paroxysmal atrial fibrillation) chronic Presence of implantable card ioverter-defibrillator (ICD) Jun, 2013 chronic Sustained VT (ventricular tachycardia) chronic History of cardiac radiofrequency ablation resolved Dyspnea on exertion acute 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 Chronic systolic (congestive) heart failure chronic Essential hypertension chron ic Ischemic cardiomyopathy 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 Mixed hyperlipidemia chronic PAF (paroxysmal atrial fibrillation) chronic Presence of implantable card ioverter-defibrillator (ICD) Jun, 2013 chronic Presence of stent in coronary artery February, chronic History of cardiac radiofrequency ablation resolved Chronic systolic (congestive) heart failure chronic Ischemic cardiomyopathy 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 PAF (paroxysmal atrial fibrillation) chronic Presence of implantable card ioverter-defibrillator (ICD) Jun, 2013 chronic Sustained VT (ventricular tachycardia) chronic History of cardiac radiofrequency ablation resolved Chronic systolic (congestive) heart failure chronic Ischemic cardiomyopathy 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 PAF (paroxysmal atrial fibrillation) chronic Presence of implantable card ioverter-defibrillator (ICD) Jun, 2013 chronic Sustained VT (ventricular tachycardia) chronic History of cardiac radiofrequency ablation resolved [facility] Work Phone: Evaluation note* Diagnosis Onset Date Resolution Status Nicotine dependence, cigarettes, in remission acute Nocturnal hypoxia acute CKD (chronic kidney disease), stage III chronic Essential hypertension chron ic Type 2 diabetes mellitus [facility] Chronic systolic (congestive) heart failure chronic Ischemic cardiomyopathy 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 PAF (paroxysmal atrial fibrillation) chronic Presence of implantable card ioverter-defibrillator (ICD) Jun, 2013 chronic Sustained VT (ventricular tachycardia) chronic History of cardiac radiofrequency ablation resolved Chronic systolic (congestive) heart failure chronic Ischemic cardiomyopathy 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 PAF (paroxysmal atrial fibrillation) chronic Presence of implantable card ioverter-defibrillator (ICD) Jun, 2013 chronic Sustained VT (ventricular tachycardia) chronic History of cardiac radiofrequency ablation resolved Dyspnea on exertion acute 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 Chronic systolic (congestive) heart failure chronic Essential hypertension chron ic Ischemic cardiomyopathy 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 Mixed hyperlipidemia chronic PAF (paroxysmal atrial fibrillation) chronic Presence of implantable card ioverter-defibrillator (ICD) Jun, 2013 chronic Presence of stent in coronary artery February, chronic History of cardiac radiofrequency ablation resolved Chronic systolic (congestive) heart failure chronic Ischemic cardiomyopathy 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 PAF (paroxysmal atrial fibrillation) chronic Presence of implantable card ioverter-defibrillator (ICD) Jun, 2013 chronic Sustained VT (ventricular tachycardia) chronic History of cardiac radiofrequency ablation resolved Chronic systolic (congestive) heart failure chronic Ischemic cardiomyopathy 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 PAF (paroxysmal atrial fibrillation) chronic Presence of implantable card ioverter-defibrillator (ICD) Jun, 2013 chronic Sustained VT (ventricular tachycardia) chronic History of cardiac radiofrequency ablation resolved Flu vaccine need acute Essential hypertension chron ic Type 2 diabetes mellitus [facility] Work Phone: Evaluation note* Diagnosis Onset Date Resolution Status CKD (chronic kidney disease), stage III chronic Essential hypertension chron ic Type 2 diabetes mellitus [facility] Chronic systolic (congestive) heart failure chronic Ischemic cardiomyopathy 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 PAF (paroxysmal atrial fibrillation) chronic Presence of implantable card ioverter-defibrillator (ICD) Jun, 2013 chronic Sustained VT (ventricular tachycardia) chronic History of cardiac radiofrequency ablation resolved Chronic systolic (congestive) heart failure chronic Ischemic cardiomyopathy 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 PAF (paroxysmal atrial fibrillation) chronic Presence of implantable card ioverter-defibrillator (ICD) Jun, 2013 chronic Sustained VT (ventricular tachycardia) chronic History of cardiac radiofrequency ablation resolved Dyspnea on exertion acute 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 Chronic systolic (congestive) heart failure chronic Essential hypertension chron ic Ischemic cardiomyopathy 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 Mixed hyperlipidemia chronic PAF (paroxysmal atrial fibrillation) chronic Presence of implantable card ioverter-defibrillator (ICD) Jun, 2013 chronic Presence of stent in coronary artery February, chronic History of cardiac radiofrequency ablation resolved Chronic systolic (congestive) heart failure chronic Ischemic cardiomyopathy 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 PAF (paroxysmal atrial fibrillation) chronic Presence of implantable card ioverter-defibrillator (ICD) Jun, 2013 chronic Sustained VT (ventricular tachycardia) chronic History of cardiac radiofrequency ablation resolved Chronic systolic (congestive) heart failure chronic Ischemic cardiomyopathy 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 PAF (paroxysmal atrial fibrillation) chronic Presence of implantable card ioverter-defibrillator (ICD) Jun, 2013 chronic Sustained VT (ventricular tachycardia) chronic History of cardiac radiofrequency ablation resolved Flu vaccine need acute Essential hypertension chron ic Type 2 diabetes mellitus [facility] Work Phone: Evaluation note* Diagnosis Onset Date Resolution Status CKD (chronic kidney disease), stage III chronic Essential hypertension chron ic Type 2 diabetes mellitus [facility] on Smoking greater than 40 pack years acute Nocturnal hypoxia chronic Amiodarone toxicity chronic Essential hypertension chron ic Ischemic cardiomyopathy 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 Mixed hyperlipidemia chronic PAF (paroxysmal atrial fibrillation) chronic Presence of implantable card ioverter-defibrillator (ICD) Jun, 2013 chronic Presence of stent in coronary artery February, chronic History of cardiac radiofrequency ablation resolved [facility] Work Phone: Evaluation note* Diagnosis Onset Date Resolution Status CKD (chronic kidney disease), stage III chronic Essential hypertension chron ic Type 2 diabetes mellitus [facility] Smoking greater than 40 pack years acute Nocturnal hypoxia chronic Amiodarone toxicity chronic Essential hypertension chron ic Ischemic cardiomyopathy 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 Mixed hyperlipidemia chronic PAF (paroxysmal atrial fibrillation) chronic Presence of implantable card ioverter-defibrillator (ICD) Jun, 2013 chronic Presence of stent in coronary artery February, chronic History of cardiac radiofrequency ablation resolved Back pain acute CKD (chronic kidney disease), stage III chronic Essential hypertension chron ic Type 2 diabetes mellitus [facility] Work Phone: Evaluation note* Diagnosis Onset Date Resolution Status Flu vaccine need acute Back pain chronic Essential hypertension chron ic Mixed hyperlipidemia chronic Type 2 diabetes mellitus [facility] on CKD (chronic kidney disease), stage III chronic Essential hypertension chron ic Hypersomnolence chronic IVON (obstructive sleep apnea) chronic Type 2 diabetes mellitus [facility] Work Phone: Evaluation note* Diagnosis Chronic bilateral thoracic back pain Chest pain, unspecified type SOB (shortness of breath) Shortness of breath documented in this encounter [facility] Discharge instructions Additional Instructions Your INR today is 1.4, a little low. Take an extra half tablet of warfarin at your next dose; if your next dose is half of a pill, then just take a single pill.[facility] Work Phone: Reason for referral (narrative)No reason for referral information availableWMemorial [facility] Work Phone: Summary Purpose Family History No Family History Records Found Relationship Condition Age at Onset Recorded Date/T ariela mother Cerebrovascular accident (CVA) Unknown grandfather Cardiac disease Unknown father Malignant neoplasm Unknown sister Malignant neoplasm Unknown Relationship Condition Age at Onset Recorded Date/T ariela mother Cerebrovascular accident (CVA) Unknown Hypertension Unknown grandfather Cardiac disease Unknown father Malignant neoplasm Unknown Malignant neoplasm of thyroid gland Unkno wn sister Malignant neoplasm Unknown Malignant neoplasm of lung Unknown Advance Directives No Advanced Directives Records FoundDocuments on File Type Date Recorded 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 Advance Directive(s) 09/24/2017 7:10 AM Advance Directive Response Recorded Date/ Time Advance Directives Yes December 7:31pm Living Will Yes October 07 6:59pm Power of Photogravure Press Operator Yes October 07 6:59pm Advance Directive Response Recorded Date/ Time Advance Directives Yes July 04 10:59am Living Will Yes July 04, 2021 1 0:59am Power of Photogravure Press Operator Yes July 04, 2021 10:59am Advance Directive Response Recorded Date/ Time Advance Directives on File Yes June 102021 10:59am Name of Medical Power of Photogravure Press Operator Britany Wade July 04, 2021 10:59am Advance Directives Yes July 04 10:59am Living Will Yes July 04, 2021 1 0:59am Power of Photogravure Press Operator Yes July 04, 2021 10:59am Advance Directive Response Recorded Date/ Time Advance Directives Yes July 04 9:59am Living Will Yes July 04, 2021 9 :59am Power of Photogravure Press Operator Yes May 26th, 2022 9:59am Advance Directive Response Recorded Date/ Time Living Will Yes September 27 6:24pm Do you have a Healthcare Power of Photogravure Press Operator? Yes September 28, 2023 6:24pm Advance Directives Yes July 04 10:59am Advance Directive Response Recorded Date/ Time Do you have a Healthcare Power of Photogravure Press Operator? Yes June 04, 2024 1:40am Name of Medical Power of Photogravure Press Operator June 04, 2024 1:40am Advance Directives Yes July 04 10:59am Advance Directive Response Recorded Date/ Time Living Will Yes September 27 6:24pm Do you have a Healthcare Power of Photogravure Press Operator? Yes September 28, 2023 6:24pm Do you have a Healthcare Power of Photogravure Press Operator? Yes June 04, 2024 1:40am Name of Medical Power of Photogravure Press Operator June 04, 2024 1:40am Advance Directives Yes July 04 10:59am Advance Directive Response Recorded Date/ Time Living Will Yes September 27 6:24pm Do you have a Healthcare Power of Photogravure Press Operator? Yes September 28, 2023 6:24pm Do you have a Healthcare Power of Photogravure Press Operator? Yes July 22, 2024 7:28pm Do you have a Healthcare Power of Photogravure Press Operator? Yes June 04, 2024 1:40am Name of Medical Power of Photogravure Press Operator June 04, 2024 1:40am Advance Directives Yes July 04 10:59am Chief Complaint and Reason for Visit Chief Complaint 3 mos remote ICD f/u CLIMBING GUIDE, EST. CARE- NPP MAILED Reason for Visit Chronic systolic (co ngestive) heart failure Ischemic cardiomyopathy PAF (paroxysmal atrial fibrillation) Presence of implantable cardioverter-defibrillator (ICD) BPH (benign prostatic hyperplasia) Chronic diarrhea Chronic systolic (congestive) heart failure PAF (paroxysmal atrial fibrillation) Weight loss, non-intentional Chief Complaint 3 mos remote ICD f/u CLIMBING GUIDE, EST. CARE- NPP MAILED Approaching SVETA Sees [...] cardiac radiofrequency ablation 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 Chronic systolic (congestive) heart failure Essential hypertension Ischemic cardiomyopathy Mixed hyperlipidemia PAF (paroxysmal atrial fibrillation) Presence of implantable cardioverter-defibrillator (ICD) Presence of stent in coronary artery History of cardiac radiofrequency ablation Type 2 diabetes mellitus CKD (chronic kidney disease), stage III Essential hypertension Dyspnea on exertion Amiodarone toxicity 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 Chronic systolic [...] Chief Complaint 3 mos remote ICD f/u CLIMBING GUIDE, EST. CARE- NPP MAILED Approaching SVETA Sees [...] cardiac radiofrequency ablation 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 Chronic systolic (congestive) heart failure Essential hypertension Ischemic cardiomyopathy Mixed hyperlipidemia PAF (paroxysmal atrial fibrillation) Presence of implantable cardioverter-defibrillator (ICD) Presence of stent in coronary artery History of cardiac radiofrequency ablation Type 2 diabetes mellitus CKD (chronic kidney disease), stage III Essential hypertension Dyspnea on exertion Amiodarone toxicity 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 Chronic systolic (congestive) heart failure Essential hypertension Ischemic cardiomyopathy Mixed hyperlipidemia PAF (paroxysmal atrial fibrillation) Presence of implantable cardioverter-defibrillator (ICD) Presence of stent in coronary artery History of cardiac radiofrequency ablation Chronic systolic (congestive) heart failure Ischemic cardiomyopathy PAF (paroxysmal atrial fibrillation) Presence of implantable cardioverter-defibrillator (ICD) Nicotine dependence, cigarettes, in remission Nocturnal hypoxia Chief Complaint CLIMBING GUIDE, EST. CARE- NPP M CAROLE Approaching SVETA [...] cardiac radiofrequency ablation 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 Chronic systolic (congestive) heart failure Essential hypertension Ischemic cardiomyopathy Mixed hyperlipidemia PAF (paroxysmal atrial fibrillation) Presence of implantable cardioverter-defibrillator (ICD) Presence of stent in coronary artery History of cardiac radiofrequency ablation CKD (chronic kidney disease), stage III Essential hypertension Type 2 diabetes mellitus Dyspnea on exertion Amiodarone toxicity 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 Chronic systolic [...] exertion Amiodarone toxicity 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 Chronic systolic [...] cardiac radiofrequency ablation 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 Chronic systolic (congestive) heart failure Essential hypertension Ischemic cardiomyopathy Mixed hyperlipidemia PAF (paroxysmal atrial fibrillation) Presence of implantable cardioverter-defibrillator (ICD) Presence of stent in coronary artery History of cardiac radiofrequency ablation CKD (chronic kidney disease), stage III Essential hypertension Type 2 diabetes mellitus Dyspnea on exertion Amiodarone toxicity 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 Chronic systolic [...] exertion Amiodarone toxicity 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 Chronic systolic [...] exertion Amiodarone toxicity 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 Chronic systolic [...] exertion Amiodarone toxicity 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 Chronic systolic [...] exertion Amiodarone toxicity 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 Chronic systolic [...] exertion Amiodarone toxicity 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 Chronic systolic [...] exertion Amiodarone toxicity 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 Chronic systolic [...] exertion Amiodarone toxicity 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 Chronic systolic [...] exertion Amiodarone toxicity 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 Chronic systolic [...] 2024 12 :42pm PAF (paroxysmal atrial fibrillation) Apr 2024 12:42pm Presence of implantable cardioverter-def ibrillator (ICD) [...] radiofrequency ablati on July 06, 2024 3:13pm Chief Complaint Admit Date Pacer Check Remote April 20, 2024 3:0 0am 3 M FU April 28, 2024 2:1 0pm Pacer Check Remote May 18, 2024 2:00 am chest pain June 04, 2024 1:3 4am 6 M FU June 06, 2024 12: 42pm 1-2 M FU July 06, 2024 3:13p m Dysphagia, pharyngeal phase July 21, 2 025 7:27am CHEST PAIN July 22, 2024 7:27 pm Chief Complaint Admit Date Pacer Check Remote April 20, 2024 3:0 0am 3 M FU April 28, 2024 2:1 0pm Pacer Check Remote May 18, 2024 2:00 am chest pain June 04, 2024 1:3 4am 6 M FU June 06, 2024 12: 42pm 1-2 M FU July 06, 2024 3:13p m Dysphagia, pharyngeal phase July 21 2 025 7:27am CHEST PAIN July 22, 2024 7:27 pm PT HAD BARIUM TABLET GET STUCK IN GE MARI CTION August 04, 2024 1:56pm Reason for Visit Admit Date CKD (chronic [...] 2024 12 :42pm PAF (paroxysmal atrial fibrillation) Apr 2024 12:42pm Presence of implantable cardioverter-def ibrillator (ICD) June 06, 2024 12:42pm Presence of stent in coronary artery Apr 2024 12:42pm History of cardiac radiofrequency ablati on [...] radiofrequency ablati on July 06, 2024 3:13pm Dysphagia August 04, 2024 1:56 pm Chief Complaint Admit Date Pacer Check Remote April 20, 2024 3:0 0am 3 M FU April 28, 2024 2:1 0pm Pacer Check Remote May 18, 2024 2:00 am chest pain June 04, 2024 1:3 4am 6 M FU June 06, 2024 12: 42pm 1-2 M FU July 06, 2024 3:13p m Dysphagia, pharyngeal phase July 21, 2 025 7:27am CHEST PAIN July 22, 2024 7:27 pm PT HAD BARIUM TABLET GET STUCK IN GE MARI CTION August 04, 2024 1:56pm 3 M FU August 18, 2024 2:52 pm Chief Complaint Admit Date 3 M FU April 28, 2024 2:1 0pm Pacer Check Remote May 18, 2024 2:00 am chest pain June 04, 2024 1:3 4am 6 M FU June 06, 2024 12: 42pm 1-2 M FU July 06, 2024 3:13p m Dysphagia, pharyngeal phase July 21, 2 025 7:27am CHEST PAIN July 22, 2024 7:27 pm PT HAD BARIUM TABLET GET STUCK IN [facility] August 04, 2024 1:56pm Pacer Check Remote August 17, 2024 2:00a m 3 M FU August 18, 2024 2:52 pm Reason for Visit Admit Date CKD (chronic [...] radiofrequency ablati on July 06, 2024 3:13pm Dysphagia August 04, 2024 1:56 pm Cataract August 18, 2024 2:52 pm Chronic diarrhea August 18, 2024 2:52 pm CKD (chronic kidney disease), stage III August 18, 2024 2:52pm Insomnia August 18, 2024 2:52 pm PAF (paroxysmal atrial fibrillation) Aug 2:52pm Type 2 diabetes mellitus August 18, 2024 2:52pm Additional Source Comments (unrecognized sect ion and content) No Status Records FoundNo Status Records FoundNo Status Records FoundNo Status Records FoundNo Status Records Found INFORMATION SOURCE (unrecogn ized section and content) DATE CREATED AUTHOR 08/04/[address] [facility] DATE CREATED AUTHOR AUTHOR'S ORGANIZ ATION 02/15/2018 [facility] DATE CREATED AUTHOR AUTHOR'S ORGANIZ ATION 12/11/2018 [facility] DATE CREATED AUTHOR AUTHOR'S ORGANIZ ATION 08/06/2021 [facility] DATE CREATED AUTHOR AUTHOR'S ORGANIZ ATION 09/23/2024 [facility] Source Comments (unrecognize d section and content) In the event this informatio n is protected by the Federal Confidentiality of Alcohol and Drug Abuse Patient Records regulations: The Federal rules restrict any use of the information to criminally investigate or prosecute any alcohol or drug abuse patient.[facility] the event this information is protected by the Federal Confidentiality of Alcohol and Drug Abuse Patient Records regulations: The Federal rules restrict any use of the information to criminally investigate or prosecute any alcohol or drug abuse patient.[facility] the event this information is protected by the Federal Confidentiality of Alcohol and Drug Abuse Patient Records regulations: The Federal rules restrict any use of the information to criminally investigate or prosecute any alcohol or drug abuse patient.[facility] the event this information is protected by the Federal Confidentiality of Alcohol and Drug Abuse Patient Records regulations: The Federal rules restrict any use of the information to criminally investigate or prosecute any alcohol or drug abuse patient.[facility] the event this information is protected by the Federal Confidentiality of Alcohol and Drug Abuse Patient Records regulations: The Federal rules restrict any use of the information to criminally investigate or prosecute any alcohol or drug abuse patient.[facility] the event this information is protected by the Federal Confidentiality of Alcohol and Drug Abuse Patient Records regulations: The Federal rules restrict any use of the information to criminally investigate or prosecute any alcohol or drug abuse patient.[facility] the event this information is protected by the Federal Confidentiality of Alcohol and Drug Abuse Patient Records regulations: The Federal rules restrict any use of the information to criminally investigate or prosecute any alcohol or drug abuse patient.[facility] Care Teams (unrecognized sec tion and content) Team Status: Active Member Role Status Dates [...] 2024 End: June 06, 2024 Joseph Fonseca CLIMBING GUIDE, CLIMBING GUIDE-C Attending Provider Active S tart: June 06, [...] 2024 End: July 06, 2024 Joseph Fonseca NP CLIMBING GUIDE-C Attending Provider Active S tart: July 06, 2024 End: July 06, 2024 Team Status: Active Member Role Status Dates Dr. Luis Hay MD Primary Care Provider Active Start: July 08, 2024 Dr. Luis Hay MD Attending Provider Active Start: July 08, 2024 Team Status: Inactive Member Role Status Dates Dr. Luis Hay MD Primary Care Provider Active Start: July 21, 2024 End: July 21, 2024 Dr. Todd Villavicencio MD Attending Provider Active Start: July 21, 2024 End: July 21, 2024 Dr. Todd Villavicencio MD Referring Provider Active Start: July 21, 2024 End: July 21, 2024 Team Status: Inactive Member Role Status Dates Dr. Luis Hay MD Primary Care Provider Active Start: July 22, 2024 End: July 22, 2024 Dr. Thee Pettit DO Attending Provider Active Start: July 22, 2024 End: July 22, 2024 Dr. Thee Pettit DO Emergency Provider Active Start: July 22, 2024 End: July 22, 2024 Team Status: Inactive Member Role Status Dates Dr. Luis Hay MD Primary Care Provider Active Start: August 04, 2024 End: August 04, 2024 Dr. Luis Hay MD Referring Provider Active Start: August 04, 2024 End: August 04, 2024 BO MichelleC Attending Provider Active Start: August 04, 2024 End: August 04, 2024 Team Status: Inactive Member Role [...] MD Primary Care Provider Active Start: July 21, 2024 Dr. Todd Villavicencio MD Attending Provider Active Start: July 21, 2024 Dr. Todd Villavicencio MD Referring Provider Active Start: July 21, 2024 Team Status: Inactive Member Role Status Dates Dr. Luis Hay MD Primary Care Provider Active Start: July 22, 2024 End: July 22, 2024 Dr. Thee Pettit DO Emergency Provider Active Start: July 22, 2024 End: July 22, 2024 Senior Information Security Consultant Relationship Specialty Start Date End Date Nidia Geiger MD [address] [place], [place] [id number] PCP - General 07/11/05 05/05/21 Kirk Johnston (Hist) [address] [place], [place] [id number] Cash Controller Cardiology 07/29/16 Sowmya Dennison MD [address] [place] [address] [place] [phone] Cardiology 05/01/17 Mark Ricks MD [address] [phone] Cash Controller Pulmonary and Critical Care Medicine 07/15/17 Denis Jorge [address] [phone] Physician Cardiology 03/09/18 Beka Cunningham, ultrasonic seaming machine operatorTracer Clerk Internal Medicine 10/11/20 Senior Information Security Consultant Relationship Specialty Start Date End Date Kirk Johnston (Hist) [address] [place], [place] [phone] Cash Controller Cardiology 07/29/16 Sowmya Dennison MD [address] [place] [address] Cardiology 05/01/17 Mark Ricks MD [address] [address] Cash Controller Pulmonary and Critical Care Medicine 07/15/17 Denis Jorge [address] [place] [address] Physician Cardiology 03/09/18 Senior Information Security Consultant Relationship Specialty Start Date End Date Kirk Johnston (Hist) [address] [place] [address] Cash Controller Cardiology 07/29/16 Sowmya Dennison MD [address] [place] [phone] Cardiology 05/01/17 Mark Ricks MD [address] [address] Cash Controller Pulmonary and Critical Care Medicine 07/15/17 Denis Jorge [address] [place] [address] Physician Cardiology 03/09/18 Senior Information Security Consultant Relationship Specialty Start Date End Date Kirk Johnston (Hist) [address] [place] [address] Cash Controller Cardiology 07/29/16 Sowmya Dennison MD [address] [place] [phone] Cardiology 05/01/17 Mark Ricks MD [address] [address] Cash Controller Pulmonary and Critical Care Medicine 07/15/17 Denis Jorge [address] [facility] [address] [place] [phone] Physician Cardiology 03/09/18 Senior Information Security Consultant Relationship Specialty Start Date End Date Kirk Johnston Aiden (Hist) [address] [place], [place] [phone] Cash Controller Cardiology 07/29/16 Sowmya Dennison MD [address] [place] [phone] Cardiology 05/01/17 Mark Ricks MD [address] [phone] Cash Controller Pulmonary and Critical Care Medicine 07/15/17 Denis Jorge [address] [facility] [address] [place] [phone] Physician Cardiology 03/09/18 Team Status: Active Member [...] Provider, Refer ring Provider Active Oksana Guillermo CLIMBING GUIDE, CLIMBING GUIDE-C Attending Provider Active Team Status: Active Member [...] MD Primary Care Provider Active Oksana Guillermo CLIMBING GUIDE, CLIMBING GUIDE-C Attending Provider, Referring P rovider Active Team Status: Inactive Member Role Status Dates Dr. Luis Hay MD Primary Care Provider Active Oksana Guillermo CLIMBING GUIDE, CLIMBING GUIDE-C Attending Provider, Referring P rovider Active Team Status: Inactive Member Role Status Dates Dr. Luis Hay MD Primary Care Provider, Refer ring Provider Active Joseph Fonseca CLIMBING GUIDE, CLIMBING GUIDE-C Attending Provider Active Team Status: Inactive Member Role Status Dates Dr. Luis Hay MD Primary Care Provider, Refer ring Provider Active Martha Harvey CLIMBING GUIDE, CLIMBING GUIDE-C Attending Provider Active Team Status: Inactive Member Role Status Dates Dr. Luis Hay MD Primary Care Provider Active Martha Harvey CLIMBING GUIDE, CLIMBING GUIDE-C Attending Provider, Referrin g Provider Active Team [...] Dr. Barry Odom MD Attending Provider Active Senior Information Security Consultant Relationship Specialty Start Date End Date Nidia Geiger MD [address] [place] [address] PCP - General 07/11/05 05/05/21 Kirk Johnston [address] [place] [address] Cash Controller Cardiology 07/29/16 Sowmya Dennison MD [address] [phone] Cardiology 05/01/17 Mark Ricks MD [address] [address] Cash Controller Pulmonary and Critical Care Medicine 07/15/17 Denis Jorge MD [facility] [address] [address] Physician Cardiology 03/09/18 Team Status: Active Member [...] 2024 End: June 04, 2024 Team Status: Active Member Role/Relationship Status Dates Dr. Luis Hay MD Primary Care Provider Active Team Status: Inactive Member Role/Relationship Status Dates Dr. Luis Hay MD Primary Care Provider Active Start: April 20, 2024 End: April 20, 2024 Dr. Barry Odom MD Attending Provider Active S tart: April 20, 2024 End: April 20, 2024 Dr. Barry Odom MD Referring Provider Active S tart: April 20, 2024 End: April 20, 2024 Team Status: Inactive Member Role/Relationship Status Dates Dr. Luis Hay MD Primary Care Provider Active Start: April 28, 2024 End: April 28, 2024 Dr. Luis Hay MD Attending Provider Active Start: April 28, 2024 End: April 28, 2024 Dr. Luis Hay MD Referring Provider Active Start: April 28, 2024 End: April 28, 2024 Team Status: Inactive Member Role/Relationship Status Dates Dr. Luis Hay MD Primary Care Provider Active Start: April 28, 2024 End: April 28, 2024 Dr. Luis Hay MD Attending Provider Active Start: April 28, 2024 End: April 28, 2024 Dr. Luis Hay MD Referring Provider Active Start: April 28, 2024 End: April 28, 2024 Team Status: Active Member Role/Relationship Status Dates Dr. Luis Hay MD Primary Care Provider Active Start: April 29, 2024 Dr. Luis Hay MD Attending Provider Active Start: April 29, 2024 Team Status: Active Member Role/Relationship Status Dates Dr. Luis Hay MD Primary Care Provider Active Start: May 13, 2024 Dr. Luis Hay MD Attending Provider Active Start: May 13, 2024 Team Status: Inactive Member Role/Relationship Status Dates Dr. Luis Hay MD Primary Care Provider Active Start: May 18, 2024 End: May 18, 2024 Dr. Barry Odom MD Attending Provider Active S tart: May 18, 2024 End: May 18, 2024 Team Status: Active Member Role/Relationship Status Dates Dr. Luis Hay MD Primary Care Provider Active Start: May 27, 2024 Dr. Luis Hay MD Attending Provider Active Start: May 27, 2024 Team Status: Inactive Member Role/Relationship Status Dates Dr. Luis Hay MD Primary Care Provider Active Start: June 04, 2024 End: June 04, 2024 Dr. Jeb Cuellar MD Attending Provider Active Start: June 04, 2024 End: June 04, 2024 Dr. Jeb Cuellar MD Emergency Provider Active Start: June 04, 2024 End: June 04, 2024 Team Status: Inactive Member Role/Relationship Status Dates Dr. Luis Hay MD Primary Care Provider Active Start: June 06, 2024 End: June 06, 2024 Dr. Luis Hay MD Referring Provider Active Start: June 06, 2024 End: June 06, 2024 Joseph Fonseca NP, CLIMBING GUIDE-C Attending Provider Active S tart: June 06, 2024 End: June 06, 2024 Team Status: Active Member Role/Relationship Status Dates Dr. Luis Hay MD Primary Care Provider Active Start: June 24, 2024 Dr. Luis Hay MD Attending Provider Active Start: June 24, 2024 Team Status: Inactive Member Role/Relationship Status Dates Dr. Luis Hay MD Primary Care Provider Active Start: July 06, 2024 End: July 06, 2024 Dr. Luis Hay MD Referring Provider Active Start: July 06, 2024 End: July 06, 2024 Joseph Fonseca NP, CLIMBING GUIDE-C Attending Provider Active S tart: July 06, 2024 End: July 06, 2024 Team Status: Active Member Role/Relationship Status Dates Dr. Luis Hay MD Primary Care Provider Active Start: July 08, 2024 Dr. Luis Hay MD Attending Provider Active Start: July 08, 2024 Team Status: Inactive Member Role/Relationship Status Dates Dr. Luis Hay MD Primary Care Provider Active Start: July 21, 2024 End: July 21, 2024 Dr. Todd Villavicencio MD Attending Provider Active Start: July 21, 2024 End: July 21, 2024 Dr. Todd Villavicencio MD Referring Provider Active Start: July 21, 2024 End: July 21, 2024 Team Status: Inactive Member Role/Relationship Status Dates Dr. Luis Hay MD Primary Care Provider Active Start: July 22, 2024 End: July 22, 2024 Dr. Thee Pettit DO Attending Provider Active Start: July 22, 2024 End: July 22, 2024 Dr. Thee Pettit DO Emergency Provider Active Start: July 22, 2024 End: July 22, 2024 Team Status: Inactive Member Role/Relationship Status Dates Dr. Luis Hay MD Primary Care Provider Active Start: August 04, 2024 End: August 04, 2024 Dr. Luis Hay MD Referring Provider Active Start: August 04, 2024 End: August 04, 2024 BO MichelleC Attending Provider Active Start: August 04, 2024 End: August 04, 2024 Team Status: Inactive Member Role/Relationship Status Dates Dr. Luis Hay MD Primary Care Provider Active Start: August 18, 2024 End: August 18, 2024 Dr. Luis Hay MD Attending Provider Active Start: August 18, 2024 End: August 18, 2024 Dr. Luis Hay MD Referring Provider Active Start: August 18, 2024 End: August 18, 2024 Team Status: Active Member Role/Relationship Status Dates Dr. Luis Hay MD Primary Care Provider Active Start: August 18, 2024 Dr. Luis Hay MD Attending Provider Active Start: August 18, 2024 Team Status: Inactive Member Role/Relationship Status Dates Dr. Luis Hay MD Primary Care Provider Active Start: April 28, 2024 End: April 28, 2024 Dr. Luis Hay MD Attending Provider Active Start: April 28, 2024 End: April 28, 2024 Dr. Luis Hay MD Referring Provider Active Start: April 28, 2024 End: April 28, 2024 Team Status: Active Member Role/Relationship Status Dates Dr. Luis Hay MD Primary Care Provider Active Start: April 29, 2024 Dr. Luis Hay MD Attending Provider Active Start: April 29, 2024 Team Status: Active Member Role/Relationship Status Dates Dr. Luis Hay MD Primary Care Provider Active Start: May 13, 2024 Dr. Luis Hay MD Attending Provider Active Start: May 13, 2024 Team Status: Inactive Member Role/Relationship Status Dates Dr. Luis Hay MD Primary Care Provider Active Start: May 18, 2024 End: May 18, 2024 Dr. Barry Odom MD Attending Provider Active S tart: May 18, 2024 End: May 18, 2024 Team Status: Active Member Role/Relationship Status Dates Dr. Luis Hay MD Primary Care Provider Active Start: May 27, 2024 Dr. Luis Hay MD Attending Provider Active Start: May 27, 2024 Team Status: Inactive Member Role/Relationship Status Dates Dr. Luis Hay MD Primary Care Provider Active Start: June 04, 2024 End: June 04, 2024 Dr. Jeb Cuellar MD Attending Provider Active Start: June 04, 2024 End: June 04, 2024 Dr. Jeb Cuellar MD Emergency Provider Active Start: June 04, 2024 End: June 04, 2024 Team Status: Inactive Member Role/Relationship Status Dates Dr. Luis Hay MD Primary Care Provider Active Start: June 06, 2024 End: June 06, 2024 Dr. Luis Hay MD Referring Provider Active Start: June 06, 2024 End: June 06, 2024 Joseph Fonseca CLIMBING GUIDE, CLIMBING GUIDE-C Attending Provider Active S tart: June 06, 2024 End: June 06, 2024 Team Status: Active Member Role/Relationship Status Dates Dr. Luis Hay MD Primary Care Provider Active Start: June 24, 2024 Dr. Luis Hay MD Attending Provider Active Start: June 24, 2024 Team Status: Inactive Member Role/Relationship Status Dates Dr. Luis Hay MD Primary Care Provider Active Start: July 06, 2024 End: July 06, 2024 Dr. Luis Hay MD Referring Provider Active Start: July 06, 2024 End: July 06, 2024 Joseph Fonseca NP, CLIMBING GUIDE-C Attending Provider Active S tart: July 06, 2024 End: July 06, 2024 Team Status: Active Member Role/Relationship Status Dates Dr. uLis Hay MD Primary Care Provider Active Start: July 08, 2024 Dr. Luis Hay MD Attending Provider Active Start: July 08, 2024 Team Status: Inactive Member Role/Relationship Status Dates Dr. Luis Hay MD Primary Care Provider Active Start: July 21, 2024 End: July 21, 2024 Dr. Todd Villavicencio MD Attending Provider Active Start: July 21, 2024 End: July 21, 2024 Dr. Todd Villavicencio MD Referring Provider Active Start: July 21, 2024 End: July 21, 2024 Team Status: Inactive Member Role/Relationship Status Dates Dr. Luis Hay MD Primary Care Provider Active Start: July 22, 2024 End: July 22, 2024 Dr. Thee Pettit DO Attending Provider Active Start: July 22, 2024 End: July 22, 2024 Dr. Thee Pettit DO Emergency Provider Active Start: July 22, 2024 End: July 22, 2024 Team Status: Inactive Member Role/Relationship Status Dates Dr. Luis Hay MD Primary Care Provider Active Start: August 04, 2024 End: August 04, 2024 Dr. Luis Hay MD Referring Provider Active Start: August 04, 2024 End: August 04, 2024 PHILLY Michelle Attending Provider Active Start: August 04, 2024 End: August 04, 2024 Team Status: Active Member Role/Relationship Status Dates Dr. Luis Hay MD Primary Care Provider Active Start: August 17, 2024 Dr. Barry Odom MD Attending Provider Active S tart: August 17, 2024 Team Status: Inactive Member Role/Relationship Status Dates Dr. Luis Hay MD Primary Care Provider Active Start: August 18, 2024 End: August 18, 2024 Dr. Luis Hay MD Attending Provider Active Start: August 18, 2024 End: August 18, 2024 Team Status: Active Member Role/Relationship Status Dates Dr. Luis Hay MD Primary Care Provider Active Start: August 21, 2024 Dr. Luis Hay MD Attending Provider Active Start: August 21, 2024 Team Status: Inactive Member Role/Relationship Status Dates Dr. Luis Hay MD Primary Care Provider Active Start: August 17, 2024 End: August 17, 2024 Dr. Barry Odom MD Attending Provider Active S tart: August 17, 2024 End: August 17, 2024 Goals (unrecognized section and content) Goals [...] Onset Date Comments Community Monitoring Outreach 05/30/2021 CD M Outreach Reason Comments Refill Request Patient [...] BE BASED ON THE PRIMARY CLINICAL RECORDS. [email or web address] [facility]. provides no warranty or guarantee of the accuracy or completeness of information in this document.
[2024-09-23] MEDS: Lactated Ringers 1,000 ML 15 ML IV (06:33)
--- NOTE | 2024-09-23 06:35 | PCM.HP.STD ---
HPI - General General Date of Admission: 09/23/24 Date of Service: 09/23/24 Chief Complaint: Dysphagia HPI Narrative LIZBETH CARRINGTON, is a 79 M who presents for the evaluation of dysphagia - referred by ENT - dysphagia to pills - cold drinks cause cramp in the throat, drinking warm fluids resolves cramp - denies odynophagia - history of reflux - report she typically does not have trouble swallowing pills if he takes them with room temp water - ZACARIAS, 91% on RA - HFrEF - atrial fibrillation, ICD placement on 06/21/2013, superimposed upon a history of CVA Esophagram completed - h/o EGD, last 5 years ago with dilation - per patient last colonoscopy 5 years ago, this was normal - no family h/o colon CA The patient is a 79-year-old male presenting with difficulty swallowing pills. He reports taking 25 pills daily, with larger pills becoming increasingly difficult to swallow, although he has no issues with food. Cold drinks cause throat cramps, a long-standing issue, but warm drinks alleviate the discomfort. An esophagram performed on July 21, 2024, revealed a 12-mm barium tablet trapped at the gastroesophageal junction, with no esophageal mass or obstruction noted. The patient does not feel the pill getting stuck but experiences a body-defense reaction making swallowing difficult. He has a history of atrial fibrillation, with a recent episode two weeks prior, requiring emergency room evaluation. He is on warfarin with an INR typically between 2 and 3, though it drops slightly during summer due to increased salad consumption. The patient has diabetes mellitus, with a recent glucose reading of 148 mg/dL and an A1c of 7.6%. He does not use insulin and is not a candidate for glucose monitors. The patient has a significant smoking history, having smoked for 61 years but quit nine years ago, coinciding with cessation of defibrillator discharges. Attestation: Documentation on this patient encounter was supported using ambient scribe technology/ voice AI technology. The patient consented to recording for the purpose of documenting the encounter. Provider reviewed content of the generated note prior to signature. REPLACED BY [facility] Medical History Loss of hearing Wears glasses Wears dentures Anxiety Walker as ambulation aid Ambulates with cane Arthritis Prostate disease History of renal disease Back pain Restless legs Fall Injury of back Injury of head and neck Syncope History of ulceration Difficulty swallowing Gastric reflux Former smoker On home oxygen therapy Shortness of breath on exertion History of pain when walking History of edema History of stress test History of CHF (congestive heart failure) History of heart attack History of echocardiogram Cardiology follow-up encounter Chest pain Odynophagia Type 2 diabetes mellitus BPH (benign prostatic hyperplasia) Atrial fibrillation Presence of stent in coronary artery (~02/21/13) CVA (cerebral vascular accident) Ischemic cardiomyopathy Atherosclerotic heart disease of [place] coronary artery without angina pectoris Essential hypertension Home Medications ?Medication ?Instructions ?Recorded ?Last Taken ?Type blood sugar diagnostic (FreeStyle #100 ea 05/06/21 Unknown Rx Lite Strips) blood-glucose meter (FreeStyle #1 ea 05/06/21 Unknown Rx Lite Meter kit) blood glucose control, low (True #1 ea 08/11/22 Unknown Rx Metrix Level 1 solution) lancing device (TRUEdraw Lancing #1 ea 08/11/22 Unknown Rx Device) Handicap Placard #1 ea 07/20/23 Unknown Rx lancets 28 gauge (FreeStyle #200 ea 10/05/23 Unknown Rx Lancets) lancets 33 gauge (TRUEplus Lancets) #300 ea 10/05/23 Unknown Rx blood sugar diagnostic (True #300 ea 11/18/23 Unknown Rx Metrix Glucose Test Strip) warfarin 7.5 mg tablet 7.5 mg PO MOTUWETHFR blood thinner 01/27/24 09/22/24 History sacubitril 49 mg-valsartan 51 mg 1 tab PO BID heart #180 tabs 04/04/24 09/23/24 Rx tablet (Entresto) atorvastatin 40 mg tablet 40 mg PO QHS cholesterol #90 tabs 05/16/24 Unknown Rx pantoprazole 40 mg tablet,delayed 40 mg PO BID reflux #180 tabs 07/18/24 09/23/24 Rx release tamsulosin 0.4 mg capsule 0.4 mg PO QHS 07/22/24 Unknown History aspirin 81 mg tablet 81 mg PO QDAY 08/04/24 09/22/24 History metformin 500 mg tablet,extended 1,000 mg (2 x 500 mg) PO BID 3 08/18/24 Unknown Rx release 24 hr (Glucophage XR) months #360 tabs loperamide 2 mg capsule (Imodium 2 mg PO Q6H PRN loose stool #90 08/22/24 Unknown Rx A-D) caps trazodone 50 mg tablet 50 mg PO QHS sleep #90 tabs 08/25/24 Unknown Rx glimepiride 4 mg tablet 4 mg PO QDAY diabetes #90 tabs 09/12/24 Unknown Rx spironolactone 25 mg tablet 25 mg PO QDAY blood pressure #90 09/12/24 Unknown Rx tabs Lactobacillus acidophilus 250 500 mmu cells PO DAILY 09/21/24 Unknown History million cell capsule (Probiotic Acidophilus) magnesium 200 mg tablet 200 mg PO BID 09/21/24 Unknown History warfarin 7.5 mg tablet 3.75 mg PO SUSA 09/21/24 Unknown History Allergy/AdvReac Type Severity Reaction Status Date / Time gemfibrozil Allergy Intermediate upset Verified 09/23/24 06:19 stomach; constipation amiodarone AdvReac 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 esomeprazole magnesium (From AdvReac Diarrhea Verified 09/23/24 06:19 Nexium) Family History Mother CVA (cerebral vascular accident) Hypertension Grandfather Heart disease Father Cancer testicular Thyroid cancer Sister Cancer Breast Lung cancer Surgical History History of cardiac catheterization Hx of tonsillectomy Hx of left cataract extraction Hx of right cataract extraction History of esophagogastroduodenoscopy (EGD) Hx of colonoscopy History of cholecystectomy Presence of coronary angioplasty implant and graft (~02/21/13) History of cardiac radiofrequency ablation Presence of implantable cardioverter-defibrillator (ICD) (~06/21/13) Social History household members: spouse housing: house number of children: 3 current occupational status: retired current occupational exposures/hazards: No Smoking Status: Former smoker Tobacco: How many years used: 61 Electronic Cigarette Use: not used second hand exposure: Yes alcohol intake: never substance use type: does not use ROS Constitutional Constitutional: Denies fatigue, fever(s), poor appetite, weight gain or weight loss Gastrointestinal Gastrointestinal: Denies belching, bloating, change in bowel habits, change in stool character, chewing difficulty, coffee ground emesis, constipation, cramping, diarrhea, dyspepsia, dysphagia, early satiety, excessive flatus, fecal incontinence, heartburn, hematemesis, hematochezia, hemorrhoids, loose stools, melena, nausea, odynophagia, rectal bleeding, tenesmus, vomiting or weight changes Vital Signs Vital Signs Vital Signs: 09/23/24 06:24 09/23/24 06:24 Temperature 97.5 F L Temperature Source Temporal Pulse Rate 63 Respiratory Rate 16 Respiratory Pattern Normal Blood Pressure 105/76 Blood Pressure Mean 85 Blood Pressure Source Monitor Blood Pressure Position Semi-Fowlers Blood Pressure Location Left Arm Pulse Ox 96 Oxygen Delivery Method Room Air Weight Weight: 228 lb Body Mass Index (BMI) 33.6 Physical Exam Const alert, oriented x3, no apparent distress and healthy appearing General Appearance: cooperative GI normal to inspection, nondistended, normoactive bowel sounds, soft to palpation, non-tender and non-distended Percussion: normal to percussion Rectal Exam: deferred Assessment & Plan Assessment/Plan (1) Dysphagia: PLAN: Assessment and Plan Assessment and Plan (1) Dysphagia: Status: Acute Plan: The plan includes performing an upper endoscopy to assess and potentially dilate the gastroesophageal junction narrowing. Cardiac clearance is required prior to the procedure due to the patient's history of atrial fibrillation. Medications: Changed From glimepiride 4 mg PO BID 3 months 180 tabs 3RF diabetes To glimepiride 4 mg PO QDAY diabetes Plan The patient is a 79-year-old male with a history of HFrEF (15%), AICD, atrial fibrillation and diabetes mellitus, presenting with dysphagia. The esophagram indicates narrowing at the gastroesophageal junction, which may contribute to the difficulty swallowing pills. He denies any difficulty with solid foods and reports swallowing pills with room temp water he has less difficulty. The patient manages atrial fibrillation with warfarin, maintaining an INR between 2 and 3, though dietary habits affect this range. The patient's significant smoking history is notable, though cessation has positively impacted his cardiac health. I have scheduled him for an EGD to evaluate further. Patient Instructions: - Take pills with room temperature water to avoid esophageal irritation. - Schedule an upper endoscopy after obtaining cardiac clearance.
--- NOTE | 2024-09-23 06:37 | NURSING ---
PT ON COUMADIN, HE TOOK IT LAST NIGHT. CALLED DR CARVER IN ENDO ROOM TO SEE IF PATIENT NEEDED INR CHECK BUT PER DR CARVER ITS NOT NECCESARY AT THIS TIME. INR WAS 2.7 ON 08/21
--- NOTE | 2024-09-23 06:50 | PCM.PRE.AN2 ---
ASA Classification* ASA Classification ASA Classification: 4 Assessment & Plan Anesthesia* Anesthesia Assessment Anesthesia Assessment: Discussed sedation and/or anesthesia options, risks, benefits, and alternatives with patient/parents/legal guardian/POA. Questions invited. The patient/parents/legal guardian/POA seems to understand and agrees to proceed with anesthesia plan. Reviewed the physical assessment, medical history, allergy history and patient home medications list prior to surgery/procedure/anesthetic and documented any changes. Performed airway and anesthesia risk assessments. Anesthesia Type Anesthesia Type: MAC History Source History Obtained from:: Patient and Chart Anesthesia Focused Assessment* Temperature: 97.5 F Pulse Rate: 63 Blood Pressure: 105/76 Respiratory Rate: 16 Pulse Ox: 96 Oxygen Delivery Method: Room Air Airway Assessment Mouth opens: >3 cm Mallampati Score: III Teeth Condition: Dentures Labs Anesthesia Preop lab: CBC WBC 8.3 K/mm3 (4.4-11.0) 07/22/24 19:35 07/22/24 RBC 4.49 M/mm3 (4.6-6.2) L 07/22/24 19:35 07/22/24 Hgb 14.7 g/dL (13.0-16.5) 07/22/24 19:35 07/22/24 Hct 42.9 % (40-54) 07/22/24 19:35 07/22/24 Plt Count 182 K/mm3 (150-450) 07/22/24 19:35 07/22/24 CHEMISTRY Potassium 4.8 mmol/L (3.3-5.1) 08/18/24 15:50 08/18/24 Sodium 139 mmol/L (133-145) 08/18/24 15:50 08/18/24 Magnesium 1.3 mg/dL (1.5-2.2) L 08/18/24 15:50 08/18/24 BUN 11 mg/dL (4-19) 08/18/24 15:50 08/18/24 Creatinine 1.47 mg/dL (0.70-1.20) H 08/18/24 15:50 08/18/24 Glucose 134 mg/dL (70-99) H 08/18/24 15:50 08/18/24 POC Glucose 111 mg/dL (74-106) H 09/29/23 06:32 09/29/23 TSH 1.80 uIU/mL (0.358-3.74) 04/15/23 11:20 04/15/23 COAG PT 23.0 SECONDS (11.7-14.9) H 07/22/24 19:35 07/22/24 INR 2.7 08/21/24 10:00 08/21/24 Pre-Assessment Diagnosis/Proposed Procedure Planned Operative Procedure(s): EGD Anesthesia History Anesthesia History - industrial designer: Anesthesia History - industrial designer Hx Hospitalization No 09/21/24 11:39 Any Problems With Anesthesia No 09/21/24 11:39 Cholinesterase deficiency No 09/21/24 11:39 You/Your Family Experience No 09/21/24 11:39 fever (hyperthermia) with Relationship Recent Exposure to Contagious No 09/23/24 06:24 Disease Does patient have nerve No 09/21/24 11:39 stimulator Patient instructed to have device shut off --Does patient have Pacemaker Yes 09/23/24 06:24 or ICD? When Was Last Pacemaker Check QUESTION #4 FULL TEXT: You/Your Family Experience fever (hyperthermia) with Anesthesia Last Oral Intake Last Oral intake: Last Oral Intake NPO since 05:15 09/23/24 06:24 Meds taken in AM with sips of Yes 09/23/24 06:24 water? Meds patient instructed to see mar 09/23/24 06:24 take am of surgery PONV PONV - industrial designer: PONV - industrial designer Female No 09/21/24 11:39 HX of Motion Sickness No 09/21/24 11:39 HX of N/V After Surgery No 09/21/24 11:39 Non-Smoker Yes 09/21/24 11:39 Duration of Surgery greater No 09/21/24 11:39 than 60 minutes Number of Risk Factors 1 09/21/24 11:39 PONV Score Low Risk 09/21/24 11:39 Height & Weight Height & Weight: Anesthesia: Height & Weight Height 5 ft 9 in 09/23/24 06:24 Weight: 103.419 kg 09/23/24 06:24 Body Mass Index (BMI) 33.6 09/23/24 06:24 Respiratory Assessment Respiratory Assessment - industrial designer: Respiratory Tract Infection Hx - industrial designer Hx Respiratory Tract Infection No 09/21/24 11:39 STOP Sleep Apnea STOP Sleep Apnea - industrial designer: STOP Sleep Apnea - industrial designer Hx Hypertension Yes: CONTROLLED WITH MEDS 09/21/24 11:39 Hx Sleep Apnea No 09/21/24 11:39 CPAP No 09/28/23 18:24 BIPAP No 09/28/23 18:24 Do you snore loudly (louder Yes 09/21/24 11:39 than talking or can be heard Do you often feel tired/ Yes 09/21/24 11:39 fatigued/ sleepy during daytime? Has anyone observed you stop No 09/21/24 11:39 breathing during sleep? STOP Results Positive 09/21/24 11:39 QUESTION #5 FULL TEXT : Do you snore loudly (louder than talking or can be heard through closed doors)? 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 Specify any problems Hx of Preganancy in last 3 N/A 09/21/24 11:39 Months Nurse Filling Out Transfusion DSCHRIBER 09/21/24 11:39 & Questions: Date: 09/21/24 09/21/24 11:39 Time: 11:41 09/21/24 11:39 Patient unable to answer at this time (ie. confused, unrespo /Reproduction History /Reproductive History - industrial designer: /Reproductive Hx- industrial designer Hx Now No 09/21/24 11:39 Gestational Age (in weeks): EDC: Hx Hx Para Hx Section SAB No 09/21/24 11:39 Active Medications Active Medications: Current Medications Generic Name Dose Route Start Last Admin Trade Name Feliberto PRN Reason Stop Dose Admin Lactated Ringer's 1,000 mls @ 15 mls/hr 09/23/24 06:15 09/23/24 06:33 IV 15 mls/hr .Q48H SABINA Administration PFSH Medical History Loss of hearing Wears glasses Wears dentures Anxiety Walker as ambulation aid Ambulates with cane Arthritis Prostate disease History of renal disease Back pain Restless legs Fall Injury of back Injury of head and neck Syncope History of ulceration Difficulty swallowing Gastric reflux Former smoker On home oxygen therapy Shortness of breath on exertion History of pain when walking History of edema History of stress test History of CHF (congestive heart failure) History of heart attack History of echocardiogram Cardiology follow-up encounter Chest pain Odynophagia Type 2 diabetes mellitus BPH (benign prostatic hyperplasia) Atrial fibrillation Presence of stent in coronary artery (~02/21/13) CVA (cerebral vascular accident) Ischemic cardiomyopathy Atherosclerotic heart disease of [place] coronary artery without angina pectoris Essential hypertension Home Medications ?Medication ?Instructions ?Recorded ?Last Taken ?Type blood sugar diagnostic (FreeStyle #100 ea 05/06/21 Unknown Rx Lite Strips) blood-glucose meter (FreeStyle #1 ea 05/06/21 Unknown Rx Lite Meter kit) blood glucose control, low (True #1 ea 08/11/22 Unknown Rx Metrix Level 1 solution) lancing device (TRUEdraw Lancing #1 ea 08/11/22 Unknown Rx Device) Handicap Placard #1 ea 07/20/23 Unknown Rx lancets 28 gauge (FreeStyle #200 ea 10/05/23 Unknown Rx Lancets) lancets 33 gauge (TRUEplus Lancets) #300 ea 10/05/23 Unknown Rx blood sugar diagnostic (True #300 ea 11/18/23 Unknown Rx Metrix Glucose Test Strip) warfarin 7.5 mg tablet 7.5 mg PO MOTUWETHFR blood thinner 01/27/24 09/22/24 History sacubitril 49 mg-valsartan 51 mg 1 tab PO BID heart #180 tabs 04/04/24 09/23/24 Rx tablet (Entresto) atorvastatin 40 mg tablet 40 mg PO QHS cholesterol #90 tabs 05/16/24 Unknown Rx pantoprazole 40 mg tablet,delayed 40 mg PO BID reflux #180 tabs 07/18/24 09/23/24 Rx release tamsulosin 0.4 mg capsule 0.4 mg PO QHS 07/22/24 Unknown History aspirin 81 mg tablet 81 mg PO QDAY 08/04/24 09/22/24 History metformin 500 mg tablet,extended 1,000 mg (2 x 500 mg) PO BID 3 08/18/24 Unknown Rx release 24 hr (Glucophage XR) months #360 tabs loperamide 2 mg capsule (Imodium 2 mg PO Q6H PRN loose stool #90 08/22/24 Unknown Rx A-D) caps trazodone 50 mg tablet 50 mg PO QHS sleep #90 tabs 08/25/24 Unknown Rx glimepiride 4 mg tablet 4 mg PO QDAY diabetes #90 tabs 09/12/24 Unknown Rx spironolactone 25 mg tablet 25 mg PO QDAY blood pressure #90 09/12/24 Unknown Rx tabs Lactobacillus acidophilus 250 500 mmu cells PO DAILY 09/21/24 Unknown History million cell capsule (Probiotic Acidophilus) magnesium 200 mg tablet 200 mg PO BID 09/21/24 Unknown History warfarin 7.5 mg tablet 3.75 mg PO SUSA 09/21/24 Unknown History Allergy/AdvReac Type Severity Reaction Status Date / Time gemfibrozil Allergy Intermediate upset Verified 09/23/24 06:19 stomach; constipation amiodarone AdvReac 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 esomeprazole magnesium (From AdvReac Diarrhea Verified 09/23/24 06:19 Nexium) Family History Mother CVA (cerebral vascular accident) Hypertension Grandfather Heart disease Father Cancer testicular Thyroid cancer Sister Cancer Breast Lung cancer Surgical History History of cardiac catheterization Hx of tonsillectomy Hx of left cataract extraction Hx of right cataract extraction History of esophagogastroduodenoscopy (EGD) Hx of colonoscopy History of cholecystectomy Presence of coronary angioplasty implant and graft (~02/21/13) History of cardiac radiofrequency ablation Presence of implantable cardioverter-defibrillator (ICD) (~06/21/13) Social History household members: spouse housing: house number of children: 3 current occupational status: retired current occupational exposures/hazards: No Smoking Status: Former smoker Tobacco: How many years used: 61 Electronic Cigarette Use: not used second hand exposure: Yes alcohol intake: never substance use type: does not use Review of Systems (Anesthesia) ROS Narrative System reviewed and no additional complaints, except as documented.
--- NOTE | 2024-09-23 07:00 | EGD_PTH ---
PATIENT: LIZBETH CARRINGTON III LOC: EN U#:[id number] AGE/SX: 79/M ROOM: RE09/23/[address]: Dr. Ho Sotomayor DO : 1945 BED: DIS: 09/23/2024 SPEC #: [id number] RECD: 09/23/24 08:39 STATUS: HUGO ANN #: [id number] LORRIE: 09/23/24 07:[address]: Ho Sotomayor DEPT: SURGICAL PATHOLOGY RECD BY: Alexis Bethea ENTERED: 09/23/24 13:18 SP TYPE: EGD BIOPSY TRACY DR: Dr. Luis Hay MD Tissues: A - Gastric mucous membrane B - Esophagus, NOS Procedures: Immunohistochemical Stains Surgery Specimen Level IV HEADER OPERATION: EGD and biopsy and dilatation PRE-OP DIAGNOSIS: Dysphagia TISSUE SUBMITTED: A- Gastric body biopsy, B- Distal esophagus biopsy MICROSCOPIC DIAGNOSIS A. Gastric body, biopsy: - Oxyntic mucosa with chronic inflammation. - IHC negative for H. pylori organisms. B. Distal esophagus, biopsy: - Cardio-oxyntic mucosa with chronic inflammation, negative for goblet cell metaplasia. - IHC positive for H. pylori organisms. - No squamous mucosa observed. MICROSCOPIC DESCRIPTION Slides are reviewed. All matched controls reacted appropriately. These tests were developed and their performance characteristics determined by [facility]. They may not have been cleared or approved by the U.S. Food and Drug Administration. The FDA has determined that such clearance or approval is not necessary. The above immunohistochemical markers are reviewed by the Pathologist. GROSS DESCRIPTION A. Received in fixative is one container labeled with the patient's name and designated Gastric body biopsy. The specimen consists of two irregular fragments of light restrepo soft tissue, each measuring 0.5 cm. The specimen is totally submitted in one cassette. B. Received in fixative is one container labeled with the patient's name and designated Distal esophagus biopsy. The specimen consists of one irregular fragment of light restrepo soft tissue that measures 0.3 cm. The specimen is totally submitted in one cassette. [place] 09/23/2024 CPT:70274u8,94875 x2
[2024-09-23] MEDS: Lidocaine 1% (5 ml sdv) 5 ML Vial IV (07:14)
--- NOTE | 2024-09-23 07:23 | PCM.POST.ANE ---
Anesthesia: Postop Eval I Current Vital Signs Temperature: 98 F Pulse Rate: 66 Blood Pressure: 112/72 Respiratory Rate: 16 Pulse Ox: 100 Oxygen Delivery Method: Room Air Assessment Airway patent: Yes Spontaneous unlabored respirations: Yes Mental status: Awake and Calm nausea: No Vomiting: No Anesthesia Complication: No Fluid Hydration Crystalloid volume administer (ml): 300 Total IV fluid infused: 300 Progress Note Anesthesia document: Postop Eval 1 completed: Yes
--- NOTE | 2024-09-23 07:28 | OP.EGD_ITS ---
Patient Name: Eduard Leos Procedure Date: 09/23/2024 7:07 AM Date of : 1945 Age: 79 Procedure: Upper GI endoscopy Indications: Dysphagia, Heartburn Providers: Ho Sotomayor DO Medicines: Monitored Anesthesia Care Patient Profile: This is a 79 year old male. Refer to note in patient chart for documentation of history and physical. Patient has symptoms of dysphagia with solids. Complications: No immediate complications. Procedure: Pre-Anesthesia Assessment: - Prior to the procedure, a History and Physical was performed, and patient medications and allergies were reviewed. The patient is competent. The risks and benefits of the procedure and the sedation options and risks were discussed with the patient. All questions were answered and informed consent was obtained. Patient identification and proposed procedure were verified by the physician in the pre-procedure area. Mental Status Examination: alert and oriented. Airway Examination: normal oropharyngeal airway and neck mobility. Respiratory Examination: clear to auscultation. CV Examination: normal. Prophylactic Antibiotics: The patient does not require prophylactic antibiotics. Prior Anticoagulants: The patient has taken no anticoagulant or antiplatelet agents except for NSAID medication. ASA Grade Assessment: II - A patient with mild systemic disease. After reviewing the risks and benefits, the patient was deemed in satisfactory condition to undergo the procedure. The anesthesia plan was to use monitored anesthesia care (MAC). Immediately prior to administration of medications, the patient was re-assessed for adequacy to receive sedatives. The heart rate, respiratory rate, oxygen saturations, blood pressure, adequacy of pulmonary ventilation, and response to care were monitored throughout the procedure. The physical status of the patient was re-assessed after the procedure. After obtaining informed consent, the endoscope was passed under direct vision. Throughout the procedure, the patient's blood pressure, pulse, and oxygen saturations were monitored continuously. The Endoscope was introduced through the mouth, and advanced to the second part of duodenum. The upper GI endoscopy was accomplished with ease. The patient tolerated the procedure well. Scope In: 7:14:35 AM Scope Out: 7:20:49 AM Total Procedure Duration Time 0 hours 6 minutes 14 seconds Findings: Non-severe esophagitis with no bleeding was found 38 to 40 cm from the incisors. Biopsies were taken with a cold forceps for histology. Verification of patient identification for the specimen was done. Estimated blood loss was minimal. Abnormal motility was noted in the esophagus. The cricopharyngeus was abnormal. There are extra peristaltic waves in the esophageal body. The distal esophagus/lower esophageal sphincter is spastic, but gives up passage to the endoscope. Tertiary peristaltic waves are noted. A guidewire was placed and the scope was withdrawn. Dilation was performed with a Savary dilator with no resistance at 54 Fr. The dilation site was examined and showed moderate improvement in luminal narrowing. Estimated blood loss was minimal. Diffuse moderately erythematous mucosa without bleeding was found in the entire examined stomach. Biopsies were taken with a cold forceps for histology. Biopsies were taken with a cold forceps for Helicobacter pylori testing. Verification of patient identification for the specimen was done. Estimated blood loss was minimal. No gross lesions were noted in the entire examined duodenum. Impression: - Non-severe esophagitis with no bleeding. Biopsied. - Abnormal esophageal motility. Dilated. - Erythematous mucosa in the stomach. Biopsied. - No gross lesions in the entire examined duodenum. Recommendation: - Discharge patient to home. - Resume previous diet. - Continue present medications. - Await pathology results. Procedure Code(s): --- Professional --- 76341, Esophagogastroduodenoscopy, flexible, transoral; with insertion of guide wire followed by passage of dilator(s) through esophagus over guide wire 76035, 59,51, Esophagogastroduodenoscopy, flexible, transoral; with biopsy, single or multiple CPT copyright 2021 [employer]. All rights reserved. The codes documented in this report are preliminary and upon insurance coder review may be revised to meet current compliance requirements. Ho Sotomayor DO 09/23/2024 7:27:20 AM This report has been signed electronically. Number of Addenda: 0 Note Initiated On: 09/23/2024 7:07 AM
--- NOTE | 2024-09-23 07:28 | OP.PROVAT_ITS ---
09/23/2024 Luis Hay MD [address] [place] [address] [place] [address] Re : Upper GI endoscopy procedure for Eduard Kennedypepper Dear Dr. Hay This procedure was performed on Monday, September 23, 2024. My impressions and recommendations are as follows: Impressions : - Non-severe esophagitis with no bleeding. Biopsied. - Abnormal esophageal motility. Dilated. - Erythematous mucosa in the stomach. Biopsied. - No gross lesions in the entire examined duodenum. Recommendations : - Discharge patient to home. - Resume previous diet. - Continue present medications. - Await pathology results. My findings are described in the full procedure note, which is enclosed. If I can be of further assistance, please feel free to contact me at . Sincerely, Ho Sotomayor, 09/23/2024 7:27:20 AM This report has been signed electronically.
--- NOTE | 2024-09-23 07:31 | POSTOPAN2_ITS ---
Anesthesia Postop Eval I Sum Postop Eval Completion status Anesthesia document: Postop Eval 1 completed: Yes Anesthesia Postop Eval I Summary Anesthesia Postop Eval I Summary: Anesthesia Postop Eval I: Assessment Summary Airway patent Yes 09/23/24 07:24 BOUFFANT CURTAIN MACHINE TENDER.MDOT Spontaneous unlabored Yes 09/23/24 07:24 BOUFFANT CURTAIN MACHINE TENDER.MDOT respirations Mental status Awake,Calm 09/23/24 07:24 BOUFFANT CURTAIN MACHINE TENDER.MDOT nausea No 09/23/24 07:24 BOUFFANT CURTAIN MACHINE TENDER.MDOT Vomiting No 09/23/24 07:24 BOUFFANT CURTAIN MACHINE TENDER.MDOT Anesthesia Postop Eval I: Fluid Summary Crystalloid volume administer 300 09/23/24 07:24 BOUFFANT CURTAIN MACHINE TENDER.MDOT (ml) Colloids volume administered ( ml) Blood Product volume administered (ml) Total IV fluid infused 300 09/23/24 07:24 BOUFFANT CURTAIN MACHINE TENDER.MDOT Anesthesia Postop Eval I: Summary Notes Anesthesia Complication No 09/23/24 07:24 BOUFFANT CURTAIN MACHINE TENDER.MDOT Anesthesia Complication Comment: Post-operative progress note Anesthesia: Postop Eval II Evaluation Mental status: Awake and Calm Pain Level: 0 nausea: No Vomiting: No Complications Anesthesia Complication: No
--- NOTE | 2024-09-23 07:31 | PCM.POSTANE2 ---
Anesthesia Postop Eval I Sum Postop Eval Completion status Anesthesia document: Postop Eval 1 completed: Yes Anesthesia Postop Eval I Summary Anesthesia Postop Eval I Summary: Anesthesia Postop Eval I: Assessment Summary Airway patent Yes 09/23/24 07:24 DIPLOMATIC INTERPRETER.MDOT Spontaneous unlabored Yes 09/23/24 07:24 DIPLOMATIC INTERPRETER.MDOT respirations Mental status Awake,Calm 09/23/24 07:24 DIPLOMATIC INTERPRETER.MDOT nausea No 09/23/24 07:24 DIPLOMATIC INTERPRETER.MDOT Vomiting No 09/23/24 07:24 DIPLOMATIC INTERPRETER.MDOT Anesthesia Postop Eval I: Fluid Summary Crystalloid volume administer 300 09/23/24 07:24 DIPLOMATIC INTERPRETER.MDOT (ml) Colloids volume administered ( ml) Blood Product volume administered (ml) Total IV fluid infused 300 09/23/24 07:24 DIPLOMATIC INTERPRETER.MDOT Anesthesia Postop Eval I: Summary Notes Anesthesia Complication No 09/23/24 07:24 DIPLOMATIC INTERPRETER.MDOT Anesthesia Complication Comment: Post-operative progress note Anesthesia: Postop Eval II Evaluation Mental status: Awake and Calm Pain Level: 0 nausea: No Vomiting: No Complications Anesthesia Complication: No
--- NOTE | 2024-09-23 08:08 | POSTOPAN2_ITS ---
Anesthesia Postop Eval I Sum Postop Eval Completion status Anesthesia document: Postop Eval 1 completed: Yes Anesthesia Postop Eval I Summary Anesthesia Postop Eval I Summary: Anesthesia Postop Eval I: Assessment Summary Airway patent Yes 09/23/24 07:24 LAUNDRETTE OWNER.MDOT Spontaneous unlabored Yes 09/23/24 07:24 LAUNDRETTE OWNER.MDOT respirations Mental status Awake,Calm 09/23/24 07:31 LAUNDRETTE OWNER.MDOT nausea No 09/23/24 07:31 LAUNDRETTE OWNER.MDOT Vomiting No 09/23/24 07:31 LAUNDRETTE OWNER.MDOT Anesthesia Postop Eval I: Fluid Summary Crystalloid volume administer 300 09/23/24 07:24 LAUNDRETTE OWNER.MDOT (ml) Colloids volume administered ( ml) Blood Product volume administered (ml) Total IV fluid infused 300 09/23/24 07:24 LAUNDRETTE OWNER.MDOT Anesthesia Postop Eval I: Summary Notes Anesthesia Complication No 09/23/24 07:31 LAUNDRETTE OWNER.MDOT Anesthesia Complication Comment: Post-operative progress note Anesthesia: Postop Eval II Evaluation Mental status: Awake and Calm Pain Level: 0 nausea: No Vomiting: No Progress Note Post-operative progress note: meets discharge Complications Anesthesia Complication: No
--- NOTE | 2024-09-23 08:08 | PCM.POSTANE2 ---
Anesthesia Postop Eval I Sum Postop Eval Completion status Anesthesia document: Postop Eval 1 completed: Yes Anesthesia Postop Eval I Summary Anesthesia Postop Eval I Summary: Anesthesia Postop Eval I: Assessment Summary Airway patent Yes 09/23/24 07:24 LABELLING MACHINE OPERATOR.MDOT Spontaneous unlabored Yes 09/23/24 07:24 LABELLING MACHINE OPERATOR.MDOT respirations Mental status Awake,Calm 09/23/24 07:31 LABELLING MACHINE OPERATOR.MDOT nausea No 09/23/24 07:31 LABELLING MACHINE OPERATOR.MDOT Vomiting No 09/23/24 07:31 LABELLING MACHINE OPERATOR.MDOT Anesthesia Postop Eval I: Fluid Summary Crystalloid volume administer 300 09/23/24 07:24 LABELLING MACHINE OPERATOR.MDOT (ml) Colloids volume administered ( ml) Blood Product volume administered (ml) Total IV fluid infused 300 09/23/24 07:24 LABELLING MACHINE OPERATOR.MDOT Anesthesia Postop Eval I: Summary Notes Anesthesia Complication No 09/23/24 07:31 LABELLING MACHINE OPERATOR.MDOT Anesthesia Complication Comment: Post-operative progress note Anesthesia: Postop Eval II Evaluation Mental status: Awake and Calm Pain Level: 0 nausea: No Vomiting: No Progress Note Post-operative progress note: meets discharge Complications Anesthesia Complication: No
== END 2024-09-23 08:15 | disposition home or self-care (01) ==
LOC: EN 05:53 → AC 05:54
PROVIDERS: PCP Internal Medicine; Referring Provider Internal Medicine; Visit Provider Internal Medicine Gastroenterology
PROC: 0DJ08ZZ Inspection of Upper Intestinal Tract, Via Natural or Artificial Opening Endoscopic (ICD-10-PCS; CPT 43235; principal; 2024-09-23 06:55)
DX: K29.50 Unspecified chronic gastritis without bleeding (principal); I50.9 Heart failure, unspecified; I48.91 Unspecified atrial fibrillation; E11.9 Type 2 diabetes mellitus without complications; R13.10 Dysphagia, unspecified; Z87.891 Personal history of nicotine dependence; Z79.84 Long term (current) use of oral hypoglycemic drugs; K21.9 Gastro-esophageal reflux disease without esophagitis; I25.10 Atherosclerotic heart disease of native coronary artery without angina pectoris; Z79.01 Long term (current) use of anticoagulants; Z79.82 Long term (current) use of aspirin
CPT/HCPCS: 43248; 43239; 82962; 88305; 88342; C1769

== ENCOUNTER → 2025-01-30 | Outpatient (CLI) | payer MEDICARE, SELFPAY ==
--- NOTE | 2025-01-30 13:06 | CDU_ITS ---
Reason For Study Reason For Study: Lightheadedness Rt. Velocities/BP Lt. Velocities/BP Prox CCA 79.7/24.4 cm/sec. Prox CCA 106.3/25.9 cm/sec. Mid CCA 63.7/19.5 cm/sec. Mid CCA 88.0/29.6 cm/sec. Dist CCA 53.9/12.2 cm/sec. Dist CCA 69.8/27.8 cm/sec. Prox ICA 82.6/26.2 cm/sec. Prox ICA 64.3/25.9 cm/sec. Mid ICA 63.0/24.9 cm/sec. Mid ICA 84.4/31.4 cm/sec. Dist ICA 56.9/24.9 cm/sec. Dist ICA 62.5/22.3 cm/sec. Rt. ICA/CCA = 1.3. Lt. ICA/CCA = 1.0. Prox ECA 85.1/13.9 cm/sec. Prox ECA 66.1/11.3 cm/sec. Rt. Vert. 26.2/8.5 cm/sec. Lt. Vert. 60.6/22.3 cm/sec. Right Extracranial There is intimal thickening but no significant atherosclerotic plaque noted in the right common carotid artery. There is heterogeneous, irregular atherosclerotic plaque noted in the right internal carotid artery. There is intimal thickening but no significant atherosclerotic plaque noted in the right external carotid artery. Antegrade flow is noted in the right vertebral artery. Left Extracranial There is intimal thickening but no significant atherosclerotic plaque noted in the left common carotid artery. There is heterogeneous, irregular atherosclerotic plaque noted in the left internal carotid artery. There is heterogeneous, irregular atherosclerotic plaque noted in the left external carotid artery. Antegrade flow is noted in the left vertebral artery. Procedure Carotid Duplex [id number]. This is a Carotid Duplex examination using B-mode, color flow and specral Doppler. The exam was diagnostic. Exam performed in department. VL/Carotid Duplex Ultrasound Interpretation Summary Mild (<50%) stenosis right extracranial internal carotid. Mild (<50%) stenosis left extracranial internal carotid. Patent and antegrade vertebrals bilaterally. Ordering Physician: Oksana Guillermo Referring Physician: Luis Hay Performed By: Mann Mcghee RVT
[2025-01-31 12:08] LABS: H. PYLORI STOOL AG Negative (Negative)
== END | disposition home or self-care (01) ==
PROVIDERS: Nurse Practitioner Acute Care; PCP Internal Medicine; Referring Provider Nurse Practitioner Gerontology; Visit Provider Nurse Practitioner Gerontology
DX: A04.8 Other specified bacterial intestinal infections (principal); R42 Dizziness and giddiness
CPT/HCPCS: 87338; 93880